=== PATIENT | male | born 1950 | race African-American/Black ===

== ENCOUNTER 2016-10-11 23:40 | Emergency (ER) | payer MEDICARE, MEDICAID ==
[~2016-10-11] VITALS: Ht 175.3 cm; Wt 104.3 kg
[~2016-10-11 23:40] MED LIST: ASPIRIN81 MG ORAL; Aspirin; CIPROFLOXACIN500 M2 ORAL; CLONIDINE 0.2M0.2 MG PO; FUROSEMIDE20 M1 ORAL; POTASSIUM99 M3 PO; ROBAXIN-750750 MG PO
[2016-10-11 23:56] VITALS: BP 122/87
[2016-10-12] MEDS ORDERED: MEDROL4 MG ORAL (00:07)
[2016-10-12] MEDS ORDERED: INDOCIN75 MG ORAL (00:07)
--- NOTE | 2016-10-12 00:07 | Emergency Room Report ---
History of Present Illness General Chief Complaint: Pain Source: Patient Present Illness HPI Is a 66-year-old male with multiple medical problem. He also has a history of gout. He presents with chief complaint of right great toe pain and also bilateral knee pain. He was in [place] 2 days ago and a lots of steak at a buffet. Since then his been having gouty attack. Denies any fever or chills. Pain is 9/10. Worse with movement. Worse with palpation. Similar symptom in the past. Allergies: Coded Allergies: No Known Allergies (Unverified , 09/28/13) Patient History Past Medical History: see triage record, old chart reviewed Past Surgical History: other Pertinent Family History: none Social History: Denies: smoking Immunizations: other Reviewed Nursing Documentation: PMH: Agreed, PSxH: Agreed Nursing Documentation-PMH Hx Hypertension: Yes Review of Systems Eye: Denies: blurred vision, eye pain ENT: Denies: ear pain, nose congestion, throat swelling Respiratory: Denies: cough, shortness of breath Cardiovascular: Denies: chest pain, palpitations Gastrointestinal: Denies: abdominal pain, diarrhea, nausea, vomiting Musculoskeletal: Reports: joint pain, joint swelling, Denies: back pain Skin: Denies: rash Neurological: Denies: headache, numbness Endocrine: Denies: increased thirst, increased urine Hematologic/Lymphatic: Denies: easy bruising All Other Systems: negative except mentioned in HPI Physical Exam Vital Signs Date Time Temp Pulse Resp B/P Pulse Ox O2 Delivery O2 Flow Rate FiO2 10/11/16 23:46 97.3 91 16 122/87 98 Room Air vitals normal Sp02 EP Interpretation: reviewed, normal General Appearance: well appearing, no apparent distress, alert Head: normocephalic, atraumatic Eyes: bilateral eye EOMI, bilateral eye PERRL ENT: hearing grossly normal, normal pharynx Neck: full range of motion, supple, no meningismus Respiratory: chest non-tender, lungs clear, normal breath sounds Cardiovascular #1: regular rate, rhythm, no murmur Gastrointestinal: normal bowel sounds, non tender, no mass, no organomegaly, no bruit, non-distended Musculoskeletal: back normal, gait/station normal, normal range of motion, other - Tenderness to bilateral knee and first right MTP joint Neurologic: alert, oriented x3 Psychiatric: mood/affect normal Skin: warm/dry Medical Decision Making Diagnostic Impression: Primary Impression: Gouty arthritis of toe Additional Impression: Gout of both knees ER Course Patient with gouty attacks. No evidence of septic joint. We'll discharge home. Last Vital Signs Date Time Temp Pulse Resp B/P Pulse Ox O2 Delivery O2 Flow Rate FiO2 10/11/16 23:56 97.3 16 122/87 98 Room Air 10/11/16 23:46 91 Status: improved Disposition: HOME, SELF-CARE Condition: Stable Scripts Methylprednisolone* (MEDROL*) 4 Mg Tablet 4 MG ORAL DAILY, #10 TAB 0 Refills Prov: BARBARA JACOBO M.D. 10/12/16 Indomethacin (Indocin) 75 Mg Capsule.er 75 MG ORAL TID, #30 CAP Prov: BARBARA JACOBO M.D. 10/12/16 Additional Instructions: followup with your DrTarsha in 7 days. Return if worse. BARBARA JACOBO M.D. Oct 12, 2016 00:07
[2016-10-12 00:15] VITALS: BP 122/87
[2016-10-12] MEDS ORDERED: Morphine Sulfate 4mg/ml Inj IM ONE (00:15)
== END 2016-10-12 00:15 | disposition home or self-care (01) ==
LOC: EMR 23:59
DX: M10.071 Idiopathic gout, right ankle and foot (principal); M10.062 Idiopathic gout, left knee; M10.061 Idiopathic gout, right knee; I10 Essential (primary) hypertension
CPT/HCPCS: 96372; 99284; J2270; 99283

== ENCOUNTER 2016-10-18 18:54 | Emergency (ER) | payer MEDICARE, MEDICAID ==
[~2016-10-18] VITALS: Ht 175.3 cm; Wt 106.6 kg
[~2016-10-18 18:54] MED LIST changes: +INDOCIN75 MG ORAL; +MEDROL4 MG ORAL
[2016-10-18 19:17] VITALS: BP 138/93
--- NOTE | 2016-10-18 19:27 | Emergency Room Report ---
History of Present Illness General Chief Complaint: Pain Source: Patient, Medical Record Present Illness HPI Patient presents with complaints of right knee pain Ongoing for the past several days he reports that he had prime rib earlier this weekend And has had increased pain to the right knee and right foot upon bearing weight Denies any fevers or chills denies any chest pain or shortness of breath Denies any focal weakness Denies any neck pain or photophobia patient reports previous history of gout and feels fairly similar to that Review of records reveals patient was here about 7 days ago with complaint of red meat in [place] On review of cures, it also appears patient had gone to [facility] ER in the beginning of October and prescribed, tyl with codeine Allergies: Coded Allergies: No Known Allergies (Unverified , 09/28/13) Patient History Past Medical History: see triage record Pertinent Family History: none Reviewed Nursing Documentation: PMH: Agreed, PSxH: Agreed Nursing Documentation-PMH Past Medical History: No History, Except For Hx Hypertension: Yes Review of Systems All Other Systems: negative except mentioned in HPI Physical Exam Vital Signs Date Time Temp Pulse Resp B/P Pulse Ox O2 Delivery O2 Flow Rate FiO2 10/18/16 18:57 97.9 71 14 138/93 98 Sp02 EP Interpretation: reviewed, normal General Appearance: well appearing, no apparent distress Head: normocephalic, atraumatic Eyes: bilateral eye EOMI, bilateral eye PERRL ENT: hearing grossly normal, normal pharynx, TMs + canals normal, uvula midline Neck: full range of motion, supple, no meningismus, no bony tend Respiratory: lungs clear, normal breath sounds, no rhonchi, no respiratory distress, no retraction, no accessory muscle use Cardiovascular #1: normal peripheral pulses, regular rate, rhythm, no gallop, no JVD, no murmur Gastrointestinal: normal bowel sounds, non tender, soft, no mass, no organomegaly, non-distended, no guarding, no hernia, no pulsatile mass, no rebound Genitourinary: no CVA tenderness Musculoskeletal: other - No obvious joint effusion in the right knee, however of both lower extremities reveal two out of four pitting edema Neurologic: oriented x3, 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, 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, motor strength/ tone normal, sensory intact Psychiatric: mood/affect normal Skin: warm/dry Lymphatic: other - As above with edema Medical Decision Making Diagnostic Impression: Primary Impression: Peripheral edema Additional Impressions: Knee pain Gout attack ER Course Given the patient's history examined the presentation multiple differentials were considered Including but not limited to septic joint, occult fracture, arthralgia Patient does not appear septic or toxic The joint in question is not warm, but a very small effusion clinically however somewhat insignificant Patient is neurologically and neurovascularly intact He has had previous gout and it does feel similar Patient reports that he did not take the medications that he was prescribed previously I feel that this is crucial to his outpatient intervention And patient will return with any changes in symptoms Last Vital Signs Date Time Temp Pulse Resp B/P Pulse Ox O2 Delivery O2 Flow Rate FiO2 10/18/16 19:17 97.9 83 14 138/93 98 Status: improved Disposition: HOME, SELF-CARE Condition: Improved Scripts Hydrocodone Bit/Acetaminophen 5-325* ([place] 5-325*) 1 Each Tablet 1 TAB ORAL Q6H Y for For Pain, #10 TAB 0 Refills Prov: JAIRON THAO D.O. 10/18/16 Additional Instructions: Patient is provided with the discharge instructions notified to follow up with primary doctor in the next 2-3 days otherwise return to the er with any worsening symptoms. Please note that this report is being documented using [employer] technology. This can lead to erroneous entry secondary to incorrect interpretation by the dictating instrument. JAIRON THAO D.O. Oct 18, 2016 19:27
[2016-10-18] MEDS ORDERED: Morphine Sulfate 4mg/ml Inj IM ONE (19:30)
[2016-10-18] MEDS ORDERED: NORCO 5-325 TA1 EACH ORAL (20:12)
[2016-10-18 20:19] VITALS: BP 129/83
[2016-10-18 20:20] VITALS: BP 138/93
== END 2016-10-18 20:21 | disposition home or self-care (01) ==
LOC: EMR 19:10
DX: M10.9 Gout, unspecified (principal); R60.0 Localized edema; I10 Essential (primary) hypertension
CPT/HCPCS: 96372; 99283; J2270

== ENCOUNTER 2016-11-14 08:29 | Inpatient (IN) | payer MEDICARE, MEDICAID ==
[~2016-11-14] VITALS: Ht 175.3 cm; Wt 97.5 kg
[~2016-11-14 08:29] MED LIST changes: +NORCO 5-325 TA1 EACH ORAL
[2016-11-14] MEDS ORDERED: Morphine Sulfate 4mg/ml Inj IVP ONE (08:45)
--- NOTE | 2016-11-14 09:12 | Emergency Room Report ---
History of Present Illness General Chief Complaint: Pain Source: Patient Present Illness HPI Patient presents with 2 problems. The first is that his gout has been acting out. He has pain in both ankles and also his right knee. He is significant amount of increased edema there. The second problem is that he felt his heart started defibrillate. He's had a history of atrial fibrillation but is not taking anticoagulation at the moment. He felt this began yesterday. He was seen by his doctors yesterday and they noticed of the need to do. Allergies: Coded Allergies: ACETAMINOPHEN (Verified Allergy, Unknown, 11/14/16) HYDROCODONE (Verified Allergy, Unknown, 11/14/16) Uncoded Allergies: VICODEN (Allergy, Unknown, 11/14/16) Patient History Past Medical History: see triage record Social History Narrative at home Reviewed Nursing Documentation: PMH: Agreed, PSxH: Agreed Nursing Documentation-PMH Hx Hypertension: Yes Review of Systems All Other Systems: negative except mentioned in HPI Physical Exam Vital Signs Date Time Temp Pulse Resp B/P Pulse Ox O2 Delivery O2 Flow Rate FiO2 11/14/16 08:39 97.2 89 18 165/100 99 Room Air Sp02 EP Interpretation: reviewed, normal General Appearance: well appearing, no apparent distress, GCS 15 Head: normocephalic, atraumatic Eyes: bilateral eye PERRL, bilateral eye normal inspection ENT: moist mucus membranes Neck: supple Respiratory: lungs clear, normal breath sounds Cardiovascular #1: tachycardia, irregularly irregular, edema - 2+ pitting Cardiovascular #2: 2+ radial (R) Gastrointestinal: normal inspection, normal bowel sounds, non tender, no mass, non-distended Musculoskeletal: back normal, gait/station normal, normal range of motion Neurologic: alert, oriented x3, grossly normal Psychiatric: mood/affect normal Skin: normal inspection, warm/dry Medical Decision Making Diagnostic Impression: Primary Impression: Atrial fibrillation with RVR Additional Impressions: Gout attack Qualified Codes: M10.9 - Gout, unspecified Edema Qualified Codes: R60.9 - Edema, unspecified Renal insufficiency ER Course This presents with 2 main problems. One is worsened gout. We will evaluate this by taking uric acid and renal function. He'll be treated with morphine. The second problem is palpitations with history of atrial fibrillation. This was evaluated with EKG, chest x-ray and labs. We need to make sure there is no acute myocardial infarction. In addition to that his rate is rapid and we need to control this. Diltiazem will be given. EKG is rapid atrial fibrillation. Chest x-ray is unremarkable except for somewhat widened mediastinum. Labs are significant for elevated white count and renal insufficiency. Also uric acid is elevated. The patient's heart rate is better after treatment with diltiazem. His pain is improved. The patient is treated with colchicine and Lasix. The patient is admitted to telemetry under the care of Dr. Espinoza. Laboratory Tests Test 11/14/16 09:00 11/14/16 14:04 White Blood Count 16.3 K/UL (4.8-10.8) H Red Blood Count 4.22 M/UL (4.70-6.10) L Hemoglobin 13.2 G/DL (14.2-18.0) L Hematocrit 40.1 % (42.0-52.0) L Mean Corpuscular Volume 95 FL (80-99) Mean Corpuscular Hemoglobin 31.2 PG (27.0-31.0) H Mean Corpuscular Hemoglobin Concent 32.8 G/DL (32.0-36.0) Red Cell Distribution Width 13.9 % (11.6-14.8) Platelet Count 377 K/UL (150-450) Mean Platelet Volume 7.1 FL (6.5-10.1) Neutrophils (%) (Auto) 71.6 % (45.0-75.0) Lymphocytes (%) (Auto) 17.2 % (20.0-45.0) L Monocytes (%) (Auto) 9.8 % (1.0-10.0) Eosinophils (%) (Auto) 0.5 % (0.0-3.0) Basophils (%) (Auto) 0.9 % (0.0-2.0) Prothrombin Time 10.5 SEC (9.30-11.50) Prothrombin Time INR 1.0 (0.9-1.1) PTT 26 SEC (23-33) Urine Color Pale yellow Urine Appearance Clear Urine pH 6 (4.5-8.0) Urine Specific [place] 1.020 (1.005-1.035) Urine Protein 2+ (NEGATIVE) H Urine Glucose (UA) Negative (NEGATIVE) Urine Ketones Negative (NEGATIVE) Urine Occult Blood 2+ (NEGATIVE) H Urine Nitrite Negative (NEGATIVE) Urine Bilirubin Negative (NEGATIVE) Urine Urobilinogen 4 MG/DL (0.0-1.0) H Urine Leukocyte Esterase Negative (NEGATIVE) Urine RBC 5-10 /HPF (0 - 0) H Urine WBC 2-4 /HPF (0 - 0) Urine Squamous Epithelial Cells Occasional /LPF Urine Bacteria Occasional /HPF (NONE) Sodium Level 142 mEQ/L (135-145) 137 mEQ/L (135-145) Potassium Level 4.4 mEQ/L (3.4-4.9) 4.1 mEQ/L (3.4-4.9) Chloride Level 102 mEQ/L (98-107) 97 mEQ/L (98-107) L Carbon Dioxide Level 24 mEQ/L (20-30) 23 mEQ/L (20-30) Anion Gap 16 (5-15) H 17 (5-15) H Blood Urea Nitrogen 32 mg/dL (7-23) H 30 mg/dL (7-23) H Creatinine 1.5 mg/dL (0.7-1.2) H 1.4 mg/dL (0.7-1.2) H Estimate Glomerular Filtration Rate 56.7 mL/min (>60) > 60 mL/min (>60) Glucose Level 90 mg/dL (74-106) 110 mg/dL (74-106) H Plasma/Serum Osmolality Pending Uric Acid 8.7 mg/dL (3.0-7.5) H 8.9 mg/dL (3.0-7.5) H Calcium Level 11.0 mg/dL (8.6-10.2) H 10.7 mg/dL (8.6-10.2) H Total Bilirubin 0.8 mg/dL (0.0-1.2) 0.7 mg/dL (0.0-1.2) Aspartate Amino Transferase (AST) 77 U/L (5-40) H 61 U/L (5-40) H Alanine Aminotransferase (ALT) 86 U/L (3-41) H 79 U/L (3-41) H Alkaline Phosphatase 108 U/L (40-129) 99 U/L (40-129) Total Creatine Kinase 48 U/L (38-174) 38 U/L (38-174) Troponin I < 0.30 ng/mL (<=0.30) < 0.30 ng/mL (<=0.30) Pro-B-Type Natriuretic Peptide 1740 pg/mL (0-125) H Total Protein 6.8 g/dL (6.6-8.7) 6.5 g/dL (6.6-8.7) L Albumin 4.1 g/dL (3.5-5.2) 4.0 g/dL (3.5-5.2) Globulin 2.7 g/dL 2.5 g/dL Albumin/Globulin Ratio 1.5 (1.0-2.7) 1.6 (1.0-2.7) Free Triiodothyronine Pending Cortisol Pending Urine Opiates Screen Positive (NEGATIVE) H Urine Barbiturates Screen Negative (NEGATIVE) Phencyclidine (PCP) Screen Negative (NEGATIVE) Urine Amphetamines Screen Negative (NEGATIVE) Urine Benzodiazepines Screen Negative (NEGATIVE) Urine Cocaine Screen Negative (NEGATIVE) Urine Marijuana (THC) Screen Negative (NEGATIVE) Phosphorus Level 2.9 mg/dL (2.5-4.8) Magnesium Level 2.2 mg/dL (1.7-2.5) Thyroid Stimulating Hormone (TSH) 0.343 uIU/mL (0.300-4.500) Free Thyroxine 1.46 ng/dL (0.86-1.85) EKG Diagnostic Results Rate: tachycardiac Rhythm: other - a fib Rhythm Strip Diag. Results Rhythm: no PVC's, no ectopy, other - a fib rate 128 Chest X-Ray Diagnostic Results EP Interpretation: Yes Findings: no consolidation, no effusion, no pneumothorax, no acute cardiopulmonary disease, other - wide mediastinum Number of Views: 1 Last Vital Signs Date Time Temp Pulse Resp B/P Pulse Ox O2 Delivery O2 Flow Rate FiO2 11/14/16 19:40 82 18 Room Air 11/14/16 17:58 153/104 11/14/16 11:35 97.9 96 Status: improved Disposition: ADMITTED INPATIENT Condition: Serious Referrals: NON PHYSICIAN (PCP) Tim Gil M.D. November 14, 2016 09:12
[2016-11-14] MEDS ORDERED: Diltiazem 25mg/5ml IV ONE (09:15)
[2016-11-14 09:20] VITALS: BP 133/89
[2016-11-14 09:26] LABS: BASOPHILS % (AUTO) 0.9 % (0.0-2.0); EOSINOPHILS % (AUTO) 0.5 % (0.0-3.0); LYMPHOCYTES % (AUTO) 17.2 % (20.0-45.0); MEAN CORPUSCULAR HEMOGLOBIN 31.2 PG (27.0-31.0); MEAN CORPUSCULAR HGB CONC 32.8 G/DL (32.0-36.0); MEAN CORPUSCULAR VOLUME 95 FL (80-99); MEAN PLATELET VOLUME 7.1 FL (6.5-10.1); MONOCYTES % (AUTO) 9.8 % (1.0-10.0); NEUTROPHILS % (AUTO) 71.6 % (45.0-75.0); PLATELET COUNT 377 K/UL (150-450); RED BLOOD COUNT 4.22 M/UL (4.70-6.10); RED CELL DISTRIBUTION WIDTH 13.9 % (11.6-14.8); WHITE BLOOD COUNT 16.3 K/UL (4.8-10.8)
[2016-11-14 09:32] LABS: APPEARANCE,URINE CLEAR; KETONES,URINE NEGATIVE (NEGATIVE); LEUKOCYTE ESTERASE ,URINE NEGATIVE (NEGATIVE); NITRITE,URINE NEGATIVE (NEGATIVE); PH,URINE 6 (4.5-8.0); PROTEIN,URINE 2+ (NEGATIVE); UROBILINOGEN,URINE 4 MG/DL (0.0-1.0)
[2016-11-14 09:45] LABS: BACTERIA,URINE OCCASIONAL /HPF; SQUAMOUS EPITHELIAL CELL,UR OCCASIONAL /LPF (NONE/OCC)
[2016-11-14 09:48] LABS: TROPONIN I < 0.30 ng/mL (<=0.30)
[2016-11-14 09:50] LABS: PROTHROMBIN TIME 10.5 SEC (9.30-11.50)
[2016-11-14 09:57] LABS: ALANINE AMINOTRANSFERASE 86 U/L (3-41); ALBUMIN/GLOBULIN RATIO 1.5 (1.0-2.7); ANION GAP 16 (5-15); ASPARTATE AMINO TRANSFERASE 77 U/L (5-40); CARBON DIOXIDE 24 mEQ/L (20-30); CHLORIDE 102 mEQ/L (98-107); CREATININE 1.5 mg/dL (0.7-1.2); GLOMERULAR FILTRATION RATE 56.7 mL/min (>60); HEMOLYSIS 10; POTASSIUM 4.4 mEQ/L (3.4-4.9); SODIUM 142 mEQ/L (135-145); TOTAL PROTEIN 6.8 g/dL (6.6-8.7); URIC ACID 8.7 mg/dL (3.0-7.5)
[2016-11-14 11:35] VITALS: BP 122/92
[2016-11-14] MEDS ORDERED: Heparin 25,000u/D5W 500ml 500 ML IV SCH ×2 (13:00→13:15)
[2016-11-14] MEDS ORDERED: DuoNeb 0.5-3(2.5)mg/3ml neb HHN PRN (13:00)
[2016-11-14] MEDS ORDERED: Metoprolol 5mg/5ml Inj IVP PRN ×2 (13:00)
[2016-11-14] MEDS ORDERED: Miralax 17gm pkt ORAL PRN (13:00)
[2016-11-14] MEDS ORDERED: Heparin 5000 units/ml inj IV ONE (13:15)
--- NOTE | 2016-11-14 14:04 | History and Physical ---
History of Present Illness General Date patient seen: November 14, 2016 Reason for Hospitalization: Pain Present Illness HPI 66 year old male with hx of afib for 44 years, gout, CHF, presented to [facility] c/ o swelling of both legs and gouty attach. He was found to be in rapid atrial fibrillation and was admitted to Telemetry. He is refusing any anticoagulant, claiming that he gets hematuria with anticoagulants. Allergies: Coded Allergies: ACETAMINOPHEN (Verified Allergy, Unknown, 11/14/16) HYDROCODONE (Verified Allergy, Unknown, 11/14/16) Uncoded Allergies: VICODEN (Allergy, Unknown, 11/14/16) Medication History Scheduled Ciprofloxacin Hcl* (Ciprofloxacin Hcl*), 500 MG ORAL Q12H Clonidine HCl (Clonidine HCl), 0.2 MG PO BID, (Reported) Furosemide* (Lasix*), 20 MG ORAL BID, (Reported) Indomethacin (Indocin), 75 MG ORAL TID Methocarbamol* (Robaxin-750*), 750 MG PO TID Methylprednisolone* (Medrol*), 4 MG ORAL DAILY Potassium Gluconate (Potassium), 20 MG PO DAILY, (Reported) Scheduled PRN Hydrocodone Bit/Acetaminophen 5-325* ([place] 5-325*), 1 TAB ORAL Q6H PRN for For Pain Miscellaneous Medications [Aspirin ], (Reported) Patient History Healthcare decision maker Resuscitation status Advanced Directive on File Past Medical/Surgical History Past Medical/Surgical History: (1) Atrial fibrillation (2) CHF (congestive heart failure) (3) Gout (4) Kidney calculus Review of Systems Musculoskeletal: Reports: joint pain, other - swlling Physical Exam General Appearance: WD/WN Lines, tubes and drains: peripheral HEENT: normocephalic, atraumatic Neck: non-tender, normal alignment Respiratory/Chest: chest wall non-tender, lungs clear Breasts: no masses Cardiovascular/Chest: normal peripheral pulses Abdomen: normal bowel sounds, non tender Genitourinary/Rectal: normal genital exam Extremities: normal range of motion Last 24 Hour Vital Signs Date Time Temp Pulse Resp B/P Pulse Ox O2 Delivery O2 Flow Rate FiO2 11/14/16 13:41 152 122/92 11/14/16 11:35 97.9 82 18 122/92 96 Room Air 11/14/16 11:24 81 19 130/79 100 Room Air 11/14/16 09:20 86 18 133/89 100 Room Air 11/14/16 09:12 149 151/120 11/14/16 09:04 140 16 Room Air 11/14/16 09:02 98.0 140 16 100 Room Air 11/14/16 08:39 97.2 89 18 165/100 99 Room Air Laboratory Tests Test 11/14/16 09:00 White Blood Count 16.3 K/UL (4.8-10.8) H Red Blood Count 4.22 M/UL (4.70-6.10) L Hemoglobin 13.2 G/DL (14.2-18.0) L Hematocrit 40.1 % (42.0-52.0) L Mean Corpuscular Volume 95 FL (80-99) Mean Corpuscular Hemoglobin 31.2 PG (27.0-31.0) H Mean Corpuscular Hemoglobin Concent 32.8 G/DL (32.0-36.0) Red Cell Distribution Width 13.9 % (11.6-14.8) Platelet Count 377 K/UL (150-450) Mean Platelet Volume 7.1 FL (6.5-10.1) Neutrophils (%) (Auto) 71.6 % (45.0-75.0) Lymphocytes (%) (Auto) 17.2 % (20.0-45.0) L Monocytes (%) (Auto) 9.8 % (1.0-10.0) Eosinophils (%) (Auto) 0.5 % (0.0-3.0) Basophils (%) (Auto) 0.9 % (0.0-2.0) Prothrombin Time 10.5 SEC (9.30-11.50) Prothromb Time International Ratio 1.0 (0.9-1.1) Activated Partial Thromboplast Time 26 SEC (23-33) Urine Color Pale yellow Urine Appearance Clear Urine pH 6 (4.5-8.0) Urine Specific [place] 1.020 (1.005-1.035) Urine Protein 2+ (NEGATIVE) H Urine Glucose (UA) Negative (NEGATIVE) Urine Ketones Negative (NEGATIVE) Urine Occult Blood 2+ (NEGATIVE) H Urine Nitrite Negative (NEGATIVE) Urine Bilirubin Negative (NEGATIVE) Urine Urobilinogen 4 MG/DL (0.0-1.0) H Urine Leukocyte Esterase Negative (NEGATIVE) Urine RBC 5-10 /HPF (0 - 0) H Urine WBC 2-4 /HPF (0 - 0) Urine Squamous Epithelial Cells Occasional /LPF Urine Bacteria Occasional /HPF (NONE) Sodium Level 142 mEQ/L (135-145) Potassium Level 4.4 mEQ/L (3.4-4.9) Chloride Level 102 mEQ/L (98-107) Carbon Dioxide Level 24 mEQ/L (20-30) Anion Gap 16 (5-15) H Blood Urea Nitrogen 32 mg/dL (7-23) H Creatinine 1.5 mg/dL (0.7-1.2) H Estimat Glomerular Filtration Rate 56.7 mL/min (>60) Glucose Level 90 mg/dL (74-106) Uric Acid 8.7 mg/dL (3.0-7.5) H Calcium Level 11.0 mg/dL (8.6-10.2) H Total Bilirubin 0.8 mg/dL (0.0-1.2) Aspartate Amino Transf (AST/SGOT) 77 U/L (5-40) H Alanine Aminotransferase (ALT/SGPT) 86 U/L (3-41) H Alkaline Phosphatase 108 U/L (40-129) Total Creatine Kinase 48 U/L (38-174) Troponin I < 0.30 ng/mL (<=0.30) Pro-B-Type Natriuretic Peptide 1740 pg/mL (0-125) H Total Protein 6.8 g/dL (6.6-8.7) Albumin 4.1 g/dL (3.5-5.2) Globulin 2.7 g/dL Albumin/Globulin Ratio 1.5 (1.0-2.7) Urine Opiates Screen Positive (NEGATIVE) H Urine Barbiturates Screen Negative (NEGATIVE) Phencyclidine (PCP) Screen Negative (NEGATIVE) Urine Amphetamines Screen Negative (NEGATIVE) Urine Benzodiazepines Screen Negative (NEGATIVE) Urine Cocaine Screen Negative (NEGATIVE) Urine Marijuana (THC) Screen Negative (NEGATIVE) Height (Feet): 5 Height (Inches): 9.00 Weight (Pounds): 240 Medications Current Medications Medications (Trade) Dose Ordered Sig/Artie Route PRN Reason Start Time Stop Time Status Last Admin Dose Admin Albuterol/ Ipratropium (DuoNeb 0.5-3(2.5)mg/3ml) 3 ml EVERY 4 HOURS PRN HHN Shortness of Breath 11/14/16 13:00 11/19/16 12:59 Clonidine HCl (Catapres) 0.2 mg BID ORAL 11/14/16 18:00 12/14/16 17:59 Dextrose (Dextrose 50%) STAT PRN IV Hypoglycemia 11/14/16 13:00 12/14/16 12:59 Diltiazem HCl (Cardizem) 10 mg EVERY HOUR PRN IV heart rate more than 140, 11/14/16 14:00 12/14/16 13:59 UNV Furosemide (Lasix) 40 mg EVERY 8 HOURS IV 11/14/16 14:00 12/14/16 13:59 11/14/16 13:41 Methocarbamol (Robaxin) 750 mg TID ORAL 11/14/16 13:00 12/14/16 12:59 Metoprolol Tartrate (Lopressor) 5 mg EVERY HOUR PRN IVP HR>120 11/14/16 13:00 12/14/16 12:59 11/14/16 13:41 Morphine Sulfate (Morphine Sulfate) 4 mg Q4H PRN IVP For Pain 11/14/16 14:00 11/21/16 13:59 UNV Ondansetron HCl (Zofran) 4 mg Q6H PRN IVP Nausea & Vomiting 11/14/16 13:00 12/14/16 12:59 Polyethylene Glycol (Miralax) 17 gm DAILYPRN PRN ORAL Constipation 11/14/16 13:00 12/14/16 12:59 Temazepam (Restoril) 15 mg HSPRN PRN ORAL Insomnia 11/14/16 21:00 11/21/16 20:59 Assessment/Plan Problem List: (1) Atrial fibrillation with RVR ICD Codes: I48.91 - Unspecified atrial fibrillation SNOMED: 744008833122976 (2) Right-sided heart failure ICD Codes: I50.9 - Heart failure, unspecified SNOMED: 938010649 (3) Renal insufficiency ICD Codes: N28.9 - Disorder of kidney and ureter, unspecified SNOMED: 807069860 (4) Peripheral edema ICD Codes: R60.9 - Edema, unspecified SNOMED: 649615976 (5) Gout ICD Codes: M10.9 - Gout, unspecified SNOMED: 27197992 Assessment/Plan rate control analgesics echo Aspirin for afib dvt prophylaxis Renal and cardio evaluation MORENA ACHARYA November 14, 2016 14:04
[2016-11-14 14:35] LABS: TROPONIN I < 0.30 ng/mL (<=0.30)
[2016-11-14] MEDS ORDERED: Diltiazem 25mg/5ml IV PRN (15:00)
[2016-11-14 15:11] LABS: ALANINE AMINOTRANSFERASE 79 U/L (3-41); ALBUMIN/GLOBULIN RATIO 1.6 (1.0-2.7); ANION GAP 17 (5-15); ASPARTATE AMINO TRANSFERASE 61 U/L (5-40); CALCIUM 10.7 mg/dL (8.6-10.2); CARBON DIOXIDE 23 mEQ/L (20-30); CHLORIDE 97 mEQ/L (98-107); CREATININE 1.4 mg/dL (0.7-1.2); GLOMERULAR FILTRATION RATE > 60 mL/min (>60); HEMOLYSIS 11; MAGNESIUM 2.2 mg/dL (1.7-2.5); PHOSPHORUS 2.9 mg/dL (2.5-4.8); POTASSIUM 4.1 mEQ/L (3.4-4.9); SODIUM 137 mEQ/L (135-145); TOTAL PROTEIN 6.5 g/dL (6.6-8.7); URIC ACID 8.9 mg/dL (3.0-7.5)
[2016-11-14] MEDS: Methocarbamol 750mg tab ORAL SCH ×2 (15:20→17:59)
[2016-11-14 15:23] LABS: THYROID STIMULATING HORMONE 0.343 uIU/mL (0.300-4.500)
[2016-11-14] MEDS: Morphine Sulfate 4mg/ml Inj IVP PRN ×2 (15:42→20:32)
--- NOTE | 2016-11-14 16:06 | Cardiology Progress Note ---
Subjective Subjective [id number] Objective Last 24 Hour Vital Signs Date Time Temp Pulse Resp B/P Pulse Ox O2 Delivery O2 Flow Rate FiO2 11/14/16 13:41 152 122/92 11/14/16 11:35 97.9 82 18 122/92 96 Room Air 11/14/16 11:24 81 19 130/79 100 Room Air 11/14/16 09:20 86 18 133/89 100 Room Air 11/14/16 09:12 149 151/120 11/14/16 09:04 140 16 Room Air 11/14/16 09:02 98.0 140 16 100 Room Air 11/14/16 08:39 97.2 89 18 165/100 99 Room Air Laboratory Tests Test 11/14/16 09:00 11/14/16 14:04 White Blood Count 16.3 K/UL (4.8-10.8) H Red Blood Count 4.22 M/UL (4.70-6.10) L Hemoglobin 13.2 G/DL (14.2-18.0) L Hematocrit 40.1 % (42.0-52.0) L Mean Corpuscular Volume 95 FL (80-99) Mean Corpuscular Hemoglobin 31.2 PG (27.0-31.0) H Mean Corpuscular Hemoglobin Concent 32.8 G/DL (32.0-36.0) Red Cell Distribution Width 13.9 % (11.6-14.8) Platelet Count 377 K/UL (150-450) Mean Platelet Volume 7.1 FL (6.5-10.1) Neutrophils (%) (Auto) 71.6 % (45.0-75.0) Lymphocytes (%) (Auto) 17.2 % (20.0-45.0) L Monocytes (%) (Auto) 9.8 % (1.0-10.0) Eosinophils (%) (Auto) 0.5 % (0.0-3.0) Basophils (%) (Auto) 0.9 % (0.0-2.0) Prothrombin Time 10.5 SEC (9.30-11.50) Prothromb Time International Ratio 1.0 (0.9-1.1) Activated Partial Thromboplast Time 26 SEC (23-33) Urine Color Pale yellow Urine Appearance Clear Urine pH 6 (4.5-8.0) Urine Specific [place] 1.020 (1.005-1.035) Urine Protein 2+ (NEGATIVE) H Urine Glucose (UA) Negative (NEGATIVE) Urine Ketones Negative (NEGATIVE) Urine Occult Blood 2+ (NEGATIVE) H Urine Nitrite Negative (NEGATIVE) Urine Bilirubin Negative (NEGATIVE) Urine Urobilinogen 4 MG/DL (0.0-1.0) H Urine Leukocyte Esterase Negative (NEGATIVE) Urine RBC 5-10 /HPF (0 - 0) H Urine WBC 2-4 /HPF (0 - 0) Urine Squamous Epithelial Cells Occasional /LPF Urine Bacteria Occasional /HPF (NONE) Sodium Level 142 mEQ/L (135-145) 137 mEQ/L (135-145) Potassium Level 4.4 mEQ/L (3.4-4.9) 4.1 mEQ/L (3.4-4.9) Chloride Level 102 mEQ/L (98-107) 97 mEQ/L (98-107) L Carbon Dioxide Level 24 mEQ/L (20-30) 23 mEQ/L (20-30) Anion Gap 16 (5-15) H 17 (5-15) H Blood Urea Nitrogen 32 mg/dL (7-23) H 30 mg/dL (7-23) H Creatinine 1.5 mg/dL (0.7-1.2) H 1.4 mg/dL (0.7-1.2) H Estimat Glomerular Filtration Rate 56.7 mL/min (>60) > 60 mL/min (>60) Glucose Level 90 mg/dL (74-106) 110 mg/dL (74-106) H Plasma/Serum Osmolality Pending Uric Acid 8.7 mg/dL (3.0-7.5) H 8.9 mg/dL (3.0-7.5) H Calcium Level 11.0 mg/dL (8.6-10.2) H 10.7 mg/dL (8.6-10.2) H Total Bilirubin 0.8 mg/dL (0.0-1.2) 0.7 mg/dL (0.0-1.2) Aspartate Amino Transf (AST/SGOT) 77 U/L (5-40) H 61 U/L (5-40) H Alanine Aminotransferase (ALT/SGPT) 86 U/L (3-41) H 79 U/L (3-41) H Alkaline Phosphatase 108 U/L (40-129) 99 U/L (40-129) Total Creatine Kinase 48 U/L (38-174) 38 U/L (38-174) Troponin I < 0.30 ng/mL (<=0.30) < 0.30 ng/mL (<=0.30) Pro-B-Type Natriuretic Peptide 1740 pg/mL (0-125) H Total Protein 6.8 g/dL (6.6-8.7) 6.5 g/dL (6.6-8.7) L Albumin 4.1 g/dL (3.5-5.2) 4.0 g/dL (3.5-5.2) Globulin 2.7 g/dL 2.5 g/dL Albumin/Globulin Ratio 1.5 (1.0-2.7) 1.6 (1.0-2.7) Free Triiodothyronine Pending Cortisol Pending Urine Opiates Screen Positive (NEGATIVE) H Urine Barbiturates Screen Negative (NEGATIVE) Phencyclidine (PCP) Screen Negative (NEGATIVE) Urine Amphetamines Screen Negative (NEGATIVE) Urine Benzodiazepines Screen Negative (NEGATIVE) Urine Cocaine Screen Negative (NEGATIVE) Urine Marijuana (THC) Screen Negative (NEGATIVE) Phosphorus Level 2.9 mg/dL (2.5-4.8) Magnesium Level 2.2 mg/dL (1.7-2.5) Thyroid Stimulating Hormone (TSH) 0.343 uIU/mL (0.300-4.500) Free Thyroxine 1.46 ng/dL (0.86-1.85) SHARMILA GODDARD November 14, 2016 16:06
[2016-11-14] MEDS ORDERED: cloNIDine 0.2mg Tab ORAL SCH (18:00)
[2016-11-14 20:00] VITALS: BP 134/88
[2016-11-14] MEDS ORDERED: Heparin 5000 units/ml inj SUBQ SCH (21:00)
[2016-11-14 21:16] LABS: APPEARANCE,URINE CLEAR; KETONES,URINE NEGATIVE (NEGATIVE); LEUKOCYTE ESTERASE ,URINE NEGATIVE (NEGATIVE); NITRITE,URINE NEGATIVE (NEGATIVE); PH,URINE 7 (4.5-8.0); PROTEIN,URINE NEGATIVE (NEGATIVE); UROBILINOGEN,URINE 4 MG/DL (0.0-1.0)
[2016-11-14 21:25] LABS: WBC,URINE 0-2 /HPF (0 - 0)
--- NOTE | 2016-11-14 23:19 | Consultation ---
DATE OF CONSULTATION: 11/14/2016 CARDIOLOGY CONSULTATION IDENTIFICATION DATA: This is a 66-year-old, black male. REASON FOR ADMISSION: Atrial fibrillation. HISTORY OF PRESENT ILLNESS: The patient had atrial fibrillation on and off for many years. However, yesterday his heart rate was fast and he was sent back to the doctor to emergency department. He denies any orthopnea, PND, or chest pain. He feels quite comfortable. Although, he felt recently lower extremity edema was getting worse. PAST MEDICAL HISTORY: Significant for gout and he also was diagnosed of kidney stones. He used to be on anticoagulation, but they stopped it because of hematuria. PAST SURGICAL HISTORY: Negative. MEDICATIONS: At home include all were reviewed and reconciled. HABITS: No history of drinking, smoking, or drug abuse. SOCIAL HISTORY: He lives at home independent. REVIEW OF SYSTEMS: His review of systems was done in details and now positive were found. PHYSICAL EXAMINATION: VITAL SIGNS: His blood pressure appears to be comfortable. Blood pressure 130/90, heart rate is 80, and oxygen saturation is 100% on room air. HEENT: PERRLA. EOMI. NECK: His neck veins are distended up to 12 cm. His carotid upstroke is brisk. LUNGS: He has scattered crackles bilaterally on that bases. HEART: Irregular with accented A2. ABDOMEN: Soft and distended. No mass is palpable. EXTREMITIES: Lower extremity 2+ edema bilaterally. NEUROLOGIC: He is intact. LABORATORY AND DIAGNOSTIC STUDIES: He had imaging studies, which showed that he has left kidney stone and there was no chest x-ray done at present time. His EKG showed heart rate of 128 beats per minute. There is morbid evidence of left ventricular enlargement. He has no ST or T changes. His other labs were reviewed with sodium 142, potassium 4.4, creatinine 1.5 and BUN 32. His white count 16.3 and hemoglobin 13.2. He also had hematuria. IMPRESSION AND RECOMMENDATION: Atrial fibrillation with rapid ventricular rate chronic, congestive heart failure chronic stable, history of hematuria, kidney stone and gout. Heart rate control as further anticoagulation was started, however, I am concerned that the patient is going to have hematuria again. He probably will need urology consult and I adjusted some of his medications. Thank you for your consultation. Asmita Cedeno M.D. DR: SUN JOB#: [id number] CC:
[2016-11-15] VITALS: BP 124/85
[2016-11-15] MEDS: Morphine Sulfate 4mg/ml Inj IVP PRN ×5 (00:44→21:57)
[2016-11-15 04:00] VITALS: BP 134/84
[2016-11-15 08:00] VITALS: BP 136/91
[2016-11-15 08:08] LABS: FREE TRIIODOTHYRONINE 3.1 pg/mL (2.0-4.4)
[2016-11-15] MEDS: Methocarbamol 750mg tab ORAL SCH ×3 (08:38→13:00)
[2016-11-15 10:12] LABS: BASOPHILS % (AUTO) 1.8 % (0.0-2.0); EOSINOPHILS % (AUTO) 1.1 % (0.0-3.0); LYMPHOCYTES % (AUTO) 11.9 % (20.0-45.0); MEAN CORPUSCULAR HEMOGLOBIN 30.2 PG (27.0-31.0); MEAN CORPUSCULAR VOLUME 95 FL (80-99); MEAN PLATELET VOLUME 7.5 FL (6.5-10.1); MONOCYTES % (AUTO) 7.1 % (1.0-10.0); NEUTROPHILS % (AUTO) 78.1 % (45.0-75.0); PLATELET COUNT 264 K/UL (150-450); RED BLOOD COUNT 4.23 M/UL (4.70-6.10); RED CELL DISTRIBUTION WIDTH 13.8 % (11.6-14.8); WHITE BLOOD COUNT 14.4 K/UL (4.8-10.8)
[2016-11-15 10:33] LABS: ANION GAP 16 (5-15); CALCIUM 9.7 mg/dL (8.6-10.2); CARBON DIOXIDE 21 mEQ/L (20-30); CHLORIDE 102 mEQ/L (98-107); CREATININE 1.2 mg/dL (0.7-1.2); GLOMERULAR FILTRATION RATE > 60 mL/min (>60); HEMOLYSIS 17; PHOSPHORUS 2.1 mg/dL (2.5-4.8); POTASSIUM 3.8 mEQ/L (3.4-4.9); SODIUM 139 mEQ/L (135-145)
[2016-11-15 10:50] LABS: TROPONIN I < 0.30 ng/mL (<=0.30)
[2016-11-15 12:00] VITALS: BP 146/87
--- NOTE | 2016-11-15 15:23 | Pulmonology Progress Note ---
Assessment/Plan Problems: (1) Atrial fibrillation with RVR (2) Right-sided heart failure (3) Renal insufficiency (4) Peripheral edema (5) Gout Assessment/Plan heart rate controlled diuresing well d/w Dr Mendez Cardio note reviewed Urology consulted, Subjective ROS Limited/Unobtainable: No Constitutional: Reports: no symptoms HEENT: Repors: no symptoms Respiratory: Reports: no symptoms Allergies: Coded Allergies: ACETAMINOPHEN (Verified Allergy, Unknown, 11/14/16) HYDROCODONE (Verified Allergy, Unknown, 11/14/16) Uncoded Allergies: VICODEN (Allergy, Unknown, 11/14/16) Objective Last 24 Hour Vital Signs Date Time Temp Pulse Resp B/P Pulse Ox O2 Delivery O2 Flow Rate FiO2 11/15/16 12:00 97.9 96 18 146/87 99 Room Air 11/15/16 08:38 67 136/91 11/15/16 08:00 114 11/15/16 08:00 96.7 67 19 136/91 95 Room Air 11/15/16 07:54 155 136/97 11/15/16 07:20 79 18 Room Air 11/15/16 04:00 75 11/15/16 04:00 97.9 77 20 134/84 100 Room Air 11/15/16 00:00 74 11/15/16 00:00 97.5 86 20 124/85 100 Room Air 11/14/16 20:00 97.7 76 20 134/88 99 Room Air 11/14/16 20:00 86 11/14/16 19:40 82 18 Room Air 11/14/16 17:58 88 153/104 11/14/16 16:00 94 Intake and Output 11/14/16 11/15/16 19:00 07:00 Intake Total 540 ml 240 ml Output Total 600 ml Balance -60 ml 240 ml Intake Oral 540 ml 240 ml Output Urine Total 600 ml # Voids 1 General Appearance: WD/WN HEENT: normocephalic Respiratory/Chest: chest wall non-tender, lungs clear Cardiovascular: normal peripheral pulses, normal rate Abdomen: normal bowel sounds, soft, non tender Genitourinary: normal external genitalia Extremities: no cyanosis Skin: no rash Laboratory Tests 11/14/16 21:00: Urine Color Pale yellow, Urine Appearance Clear, Urine pH 7, Urine Specific [place] 1.015, Urine Protein Negative, Urine Glucose (UA) Negative, Urine Ketones Negative, Urine Occult Blood 1+H, Urine Nitrite Negative, Urine Bilirubin Negative, Urine Urobilinogen 4H, Urine Leukocyte Esterase Negative, Urine RBC 2-4H, Urine WBC 0-2, Urine Squamous Epithelial Cells None, Urine Bacteria None, Urine Eosinophils 0 %, Urine Osmolality [Pending], Urine Random Sodium 104, Urine Random Chloride 88, Urine Potassium Timed 21 11/15/16 09:50: White Blood Count 14.4H, Red Blood Count 4.23L, Hemoglobin 12.8L, Hematocrit 40.0L, Mean Corpuscular Volume 95, Mean Corpuscular Hemoglobin 30.2, Mean Corpuscular Hemoglobin Concent 32.0, Red Cell Distribution Width 13.8, Platelet Count 264, Mean Platelet Volume 7.5, Neutrophils (%) (Auto) 78.1H, Lymphocytes ( %) (Auto) 11.9L, Monocytes (%) (Auto) 7.1, Eosinophils (%) (Auto) 1.1, Basophils (%) (Auto) 1.8, Sodium Level 139, Potassium Level 3.8, Chloride Level 102, Carbon Dioxide Level 21, Anion Gap 16H, Blood Urea Nitrogen 21, Creatinine 1.2, Estimat Glomerular Filtration Rate > 60, Glucose Level 128H, Calcium Level 9.7, Phosphorus Level 2.1L, Troponin I < 0.30, Albumin 3.1L Current Medications Medications (Trade) Dose Ordered Sig/Artie Route PRN Reason Start Time Stop Time Status Last Admin Dose Admin Allopurinol (Zyloprim) 100 mg DAILY ORAL 11/15/16 13:30 12/15/16 13:29 Dextrose (Dextrose 50%) STAT PRN IV Hypoglycemia 11/14/16 13:00 12/14/16 12:59 Diltiazem HCl (Cardizem) 10 mg EVERY HOUR PRN IV heart rate more than 140 11/14/16 15:00 12/14/16 14:59 11/15/16 07:54 Furosemide (Lasix) 40 mg DAILY IV 11/15/16 09:00 12/14/16 15:59 11/15/16 08:37 Methocarbamol (Robaxin) 750 mg TID ORAL 11/14/16 13:00 12/14/16 12:59 11/15/16 08:38 Metoprolol Succinate (Toprol XL) 50 mg DAILY ORAL 11/14/16 16:30 12/14/16 16:29 11/15/16 08:38 Morphine Sulfate (Morphine Sulfate) 4 mg Q4H PRN IVP For Pain 11/14/16 15:00 11/21/16 14:59 11/15/16 12:13 Naproxen (Naprosyn) 500 mg TWICE A DAY ORAL 11/15/16 18:00 12/15/16 17:59 Ondansetron HCl (Zofran) 4 mg Q6H PRN IVP Nausea & Vomiting 11/14/16 13:00 12/14/16 12:59 Polyethylene Glycol (Miralax) 17 gm DAILYPRN PRN ORAL Constipation 11/14/16 13:00 12/14/16 12:59 Temazepam (Restoril) 15 mg HSPRN PRN ORAL Insomnia 11/14/16 21:00 11/21/16 20:59 MORENA ACHARYA November 15, 2016 15:23
--- NOTE | 2016-11-15 15:45 | Cardiology Progress Note ---
Assessment/Plan Assessment/Plan increase metoprolol IV Heparin, but pt has history of hematuria, will follow ?urology consult Subjective Subjective feels better, no palpitations this morning his HR was 150 but he did not feel it Objective Last 24 Hour Vital Signs Date Time Temp Pulse Resp B/P Pulse Ox O2 Delivery O2 Flow Rate FiO2 11/15/16 12:00 97.9 96 18 146/87 99 Room Air 11/15/16 08:38 67 136/91 11/15/16 08:00 114 11/15/16 08:00 96.7 67 19 136/91 95 Room Air 11/15/16 07:54 155 136/97 11/15/16 07:20 79 18 Room Air 11/15/16 04:00 75 11/15/16 04:00 97.9 77 20 134/84 100 Room Air 11/15/16 00:00 74 11/15/16 00:00 97.5 86 20 124/85 100 Room Air 11/14/16 20:00 97.7 76 20 134/88 99 Room Air 11/14/16 20:00 86 11/14/16 19:40 82 18 Room Air 11/14/16 17:58 88 153/104 11/14/16 16:00 94 General Appearance: no apparent distress EENT: normal ENT inspection Neck: JVD - 10 cm Rhythm: Afib Cardiovascular: tachycardia, systolic murmur Respiratory/Chest: crackles/rales Abdomen: soft Extremities: moderate edema Intake and Output 11/14/16 11/15/16 19:00 07:00 Intake Total 540 ml 240 ml Output Total 600 ml Balance -60 ml 240 ml Intake Oral 540 ml 240 ml Output Urine Total 600 ml # Voids 1 Laboratory Tests Test 11/14/16 21:00 11/15/16 09:50 Urine Color Pale yellow Urine Appearance Clear Urine pH 7 (4.5-8.0) Urine Specific [place] 1.015 (1.005-1.035) Urine Protein Negative (NEGATIVE) Urine Glucose (UA) Negative (NEGATIVE) Urine Ketones Negative (NEGATIVE) Urine Occult Blood 1+ (NEGATIVE) H Urine Nitrite Negative (NEGATIVE) Urine Bilirubin Negative (NEGATIVE) Urine Urobilinogen 4 MG/DL (0.0-1.0) H Urine Leukocyte Esterase Negative (NEGATIVE) Urine RBC 2-4 /HPF (0 - 0) H Urine WBC 0-2 /HPF (0 - 0) Urine Squamous Epithelial Cells None /LPF (NONE/OCC) Urine Bacteria None /HPF (NONE) Urine Eosinophils 0 % Urine Osmolality Pending Urine Random Sodium 104 mmol/L Urine Random Chloride 88 mmol/L Urine Potassium Timed 21 mmol/L White Blood Count 14.4 K/UL (4.8-10.8) H Red Blood Count 4.23 M/UL (4.70-6.10) L Hemoglobin 12.8 G/DL (14.2-18.0) L Hematocrit 40.0 % (42.0-52.0) L Mean Corpuscular Volume 95 FL (80-99) Mean Corpuscular Hemoglobin 30.2 PG (27.0-31.0) Mean Corpuscular Hemoglobin Concent 32.0 G/DL (32.0-36.0) Red Cell Distribution Width 13.8 % (11.6-14.8) Platelet Count 264 K/UL (150-450) Mean Platelet Volume 7.5 FL (6.5-10.1) Neutrophils (%) (Auto) 78.1 % (45.0-75.0) H Lymphocytes (%) (Auto) 11.9 % (20.0-45.0) L Monocytes (%) (Auto) 7.1 % (1.0-10.0) Eosinophils (%) (Auto) 1.1 % (0.0-3.0) Basophils (%) (Auto) 1.8 % (0.0-2.0) Sodium Level 139 mEQ/L (135-145) Potassium Level 3.8 mEQ/L (3.4-4.9) Chloride Level 102 mEQ/L (98-107) Carbon Dioxide Level 21 mEQ/L (20-30) Anion Gap 16 (5-15) H Blood Urea Nitrogen 21 mg/dL (7-23) Creatinine 1.2 mg/dL (0.7-1.2) Estimat Glomerular Filtration Rate > 60 mL/min (>60) Glucose Level 128 mg/dL (74-106) H Calcium Level 9.7 mg/dL (8.6-10.2) Phosphorus Level 2.1 mg/dL (2.5-4.8) L Troponin I < 0.30 ng/mL (<=0.30) Albumin 3.1 g/dL (3.5-5.2) SHARMILA GIBBS November 15, 2016 15:45
[2016-11-15 16:00] VITALS: BP 138/72
[2016-11-15] MEDS: Allopurinol 100mg Tab ORAL SCH (16:19)
[2016-11-15] MEDS: Naproxen 500mg tab ORAL SCH (18:50)
[2016-11-15 20:00] VITALS: BP 115/64
[2016-11-16] VITALS: BP 113/64
[2016-11-16 04:00] VITALS: BP 112/69
[2016-11-16] MEDS: Morphine Sulfate 4mg/ml Inj IVP PRN ×2 (05:00→19:49)
[2016-11-16 07:24] LABS: TROPONIN I < 0.30 ng/mL (<=0.30)
[2016-11-16 07:36] LABS: URIC ACID 8.7 mg/dL (3.0-7.5)
[2016-11-16 08:00] VITALS: BP 126/85
--- NOTE | 2016-11-16 08:46 | Diagnostic Imaging Report ---
Indication: Abdominal pain Technique: Renal ultrasound Comparison: CT of the abdomen and pelvis 09/28/13 Findings: Right kidney measures 11.1 cm in length. Left kidney measures 11.7 cm in length. There is no hydronephrosis. Bilateral renal cysts are seen measuring up to 2.3 cm in the right kidney and 2.3 cm and the left kidney. Echogenic foci are demonstrated of the bilateral kidneys possibly representing nonobstructive calculi. There is an approximately 11.2 x 7.1 cm area of elliptical anechoic fluid abutting the left kidney. Visualized IVC is unremarkable. The bladder is grossly unremarkable. Impression: No hydronephrosis. Echogenic foci of the bilateral kidneys, nonspecific, could represent nonobstructive calculi. Correlation with CT recommended as indicated. Bilateral renal cysts. Large elliptical anechoic fluid abutting the left kidney which was not seen on the prior CT could represent fluid in the subcapsular location of the left kidney. Correlation with CT recommended.
--- NOTE | 2016-11-16 08:49 | History and Physical Report ---
DATE OF ADMISSION: 11/14/2016 NOTE: AUDIO NOT CLEAR. REASON FOR ADMISSION: This rheumatological consultation ordered by Dr. Espinoza on this 66-year-old patient because of recurrent gouty attack. HISTORY OF PRESENT ILLNESS: The patient was residing at home and has been in stable condition until one year prior to the present admission. At that time, he developed acute gouty attack in his left first toe. He was diagnosed by his primary care physician as acute gouty attack and received prednisone 10 mg t.i.d. and analgesic. He had another gouty attack in 2016 and another gouty attack in his right knee three weeks ago. The attack was so acute that he could not touch his skin and it was swollen. He did not complain to his physician until recently. He received morphine sulfate and prednisone again and referred to be admitted. PAST MEDICAL HISTORY: Four years ago, he underwent detachment of right eye retina. Medically, he is known to have high blood pressure for the last three years and congestive heart failure. He has gouty attack for the last one year. REVIEW OF PATIENT'S MEDICATIONS: Prior to admission revealed that the patient was on furosemide 40 mg p.o. and on admission 40 mg IV. The patient is also on metoprolol 50 mg daily and methocarbamol 750 mg daily. FAMILY HISTORY: His father at the age of 40 from complication of diabetes and his mother in her 40s from kidney infection. He has no brother and no sister. He has 12 children, six of them are his and six of them are adopted, none of them has hyperuricemia or gouty attack. HABITS: The patient did not smoke, drink, or use illicit drugs for at least 40 years. REVIEW OF SYSTEMS: Cardiovascular: The patient denied any chest pain, shortness of breath. He can walk less than half a block before developing shortness of breath. He has no palpitation and no dizziness. Pulmonary: The patient denied cough, wheezing, or expectoration. Gastrointestinal: His appetite is good. His weight is stable. He has no dysphagia, no dyspepsia, and no bowel movement disorder, however, he thinks that current gout attack was because he does not like . Genitourinary: The patient denied any dysuria and no frequency. He does have hesitancy and does have incomplete evacuation and nocturia at this time. Joint: At the present time, the only joint which is swollen in his right knee. He has no morning stiffness, cold extremities, photosensitivity, dry eyes, or alopecia. Central nervous system: until three weeks ago. He has no numbness, tingling, seizure disorder, and has no headache. PHYSICAL EXAMINATION: VITAL SIGNS: Blood pressure is 124/84, his pulse is 77, respirations were 20, and temperature 97.9 degrees. HEENT: Eyes were normal. Pupils were round, equal, and reactive to light. Sclera was white. Conjunctiva was pink. Extraocular movements were normal. Temporal arteries were palpable bilaterally. There was no bilateral temporal wasting. Visual garcia to confrontation were normal and neglect sign was negative. ENT, mucous membranes were not dehydrated. Auditory canals were clear and tympanic membranes could not be visualized. Nasal cavity was not congested. Nasal septum was intact. Soft palate was free of ulcerations. Pharynx was clear from exudate or tonsillar hypertrophy. Uvula juan to phonation. Tongue was moist, midline, and normally papillated. NECK: Supple. There was no goiter. No mass. No lymphadenopathy. There was no JVD. No bruits. Carotid upstroke was 2+. LUNGS: Clear. HEART: PMI was in the fifth left intercostal space in midclavicular line. There was normal S1 and normal S2. There was no murmur. No arrhythmia. No S3. No S4. No pericardial rub. ABDOMEN: Soft, obese, and nontender without organomegaly. There were normal bowel sounds without bruits. There was no guarding. No rebound tenderness. No ascites. No hernia. No CVA tenderness. Liver span was 8 cm, mostly nontender. EXTREMITIES: No cyanosis and no clubbing. There was 2+ edema in both feet and in both lower extremity up to 2/3 of the tibia. Joint examination, passive range of motion of shoulder and elbow. PIP and DIP are normal. There was no loss of hyperextension. There was no tophi passive range of motion of both knees. Abduction was 280 degrees and internal rotation 20. Passive range of motion of the left knee was normal without loss of hyperextension or crepitus. free of tenderness with normal passive range of motion. The right knee was mildly swollen and tender with minimal fluctuation and thickened synovium. LABORATORY DATA: Hemoglobin is 12.8, hematocrit 40.0 with MCV of 95, WBC of 14.4, and platelets are 264,000. His BUN and creatinine are 21 and 1.0 respectively. His sodium is 139, potassium 3.8, chloride 102, and CO2 21. His calcium was 9.7. His phosphorus is 2.1. Uric acid was 8.9. Glucose was 110 to 128. His calcium yesterday was 10.7 and 9.7. His BNP was not available and troponin was negative. IMPRESSION AND PLAN: Gout, probably drug induced. Furosemide should be avoided. The patient will be started on allopurinol 100 mg daily and uric acid should be followed and below 6. The patient has been on colchicine 0.6 mg b.i.d., however, at the present time, the patient is in mild pain. There is no skin hypersensitivity. X-ray of the right knee will be requested. Repeat laboratory tests will be done in the morning. The patient at the present time, mild, and probably would to improve based on management. He has chronic obstructive pulmonary disease. ARIELLE, rheumatic factor will be requested as well. Vilma Mendez M.D. DR: Omar JOB#: [id number] CC:
[2016-11-16] MEDS: Allopurinol 100mg Tab ORAL SCH (08:52)
[2016-11-16] MEDS: Naproxen 500mg tab ORAL SCH (08:55)
--- NOTE | 2016-11-16 11:07 | Diagnostic Imaging Report ---
Indication: Pain 3 views of the right knee were obtained. Findings: Bones are osteopenic. Some narrowing of the joint space noted especially in the patellofemoral compartment with subchondral cyst formation and osteophytes. No fracture is identified. Impression: Osteoarthritis
--- NOTE | 2016-11-16 11:19 | Cardiology Report ---
APPROVED REPORT EXAM: Two-dimensional and M-mode echocardiogram with Doppler and color Doppler. INDICATION Left ventricular function M-Mode DIMENSIONS IVSd0.8 (0.7-1.1cm)Left Atrium (MM)3.8 (1.6-4.0cm) LVDd4.8 (3.5-5.6cm)Aortic Root3.4 (2.0-3.7cm) PWd0.7 (0.7-1.1cm)Aortic Cusp Exc.2.1 (1.5-2.0cm) LVDs3.8 (2.5-4.0cm) PWs0.6 cm Technically difficult study due to poor acoustic windows. Normal left ventricular chamber size, systolic function and wall motion. Left ventricular ejection fraction estimated to be 55-60%. No evidence of left ventricular hypertrophy. No evidence of pericardial fat or effusion. Moderate bi-atrial enlargement by 2D. Focal aortic valve sclerosis with adequate cusp excursion Thickened mitral valve leaflets with normal excursion. Mitral annulus and aortic root calcification. Pulmonic valve is well visualized. Normal tricuspid valve structure. IVC is normal in size with physiologic collapse. A color flow and spectral Doppler study was performed and revealed: No aortic regurgitation. Moderate mitral regurgitation. Left ventricular diastolic dysfunction not obtainable due to A-FIB. Moderate tricuspid regurgitation. Tricuspid systolic velocities suggests peak right ventricular systolic pressure of 39 mmHg Consistent with mild pulmonary hypertension.
[2016-11-16 11:42] LABS: APPEARANCE,URINE CLEAR; KETONES,URINE NEGATIVE (NEGATIVE); LEUKOCYTE ESTERASE ,URINE NEGATIVE (NEGATIVE); NITRITE,URINE NEGATIVE (NEGATIVE); PH,URINE 6.5 (4.5-8.0); PROTEIN,URINE 1+ (NEGATIVE); UROBILINOGEN,URINE 4 MG/DL (0.0-1.0)
[2016-11-16 11:58] LABS: BACTERIA,URINE OCCASIONAL /HPF; SQUAMOUS EPITHELIAL CELL,UR OCCASIONAL /LPF (NONE/OCC); WBC,URINE 0-2 /HPF (0 - 0)
[2016-11-16 12:29] VITALS: BP 152/100
--- NOTE | 2016-11-16 14:47 | Diagnostic Imaging Report ---
Indication: Renal mass Technique: Continuous helical transaxial imaging of the abdomen and pelvis was obtained from the lung bases to the pubic symphysis during intravenous contrast administration. Coronal 2-D reformats were also obtained. Study obtained in a Siemens sensation [address] Total Dose length Product (DLP): [address] Dose Index Volume (CTDIvol): 21, 8, 162, 21, 21 mGy Comparison: Previous noncontrast CT 09/28 13, recent renal ultrasound 11/15/16 Findings: There is a heterogeneous slightly hyperdense, crescentic posterior, subcapsular, fluid collection measuring 8 x 4.6 x 11 CM in the left kidney. Findings consistent with a hematoma. There is associated displacement of the kidney anteriorly. The nature of the hematoma is unknown but appears to be confined to the capsule the kidney. There is no hydronephrosis. Both kidneys appear to enhance normally. There are several cysts present within both kidneys. There is a 8 mm stone in the lower pole calyx of the left kidney. Mild basilar reticular densities consistent with atelectasis noted. Gallbladder is grossly unremarkable in appearance. No abnormalities of the pancreas, adrenal glands identified. Desiccation and the liver noted. Spleen is unremarkable. There is moderate fecal retention in the rectum which is slightly distended. There is perirectal soft tissue stranding especially in the presacral region. Prostate calcification noted. The bladder is moderately distended. Arterial vascular calcifications are present within the aorta normal appendix noted. Prominent small nodes demonstrated at its L4 and L5. Impression: 8 x 5 x 11 cm posterior left subcapsular hematoma. The etiology is unknown. Nonobstructive stone in the left kidney Multiple bilateral renal cysts Atherosclerotic vascular disease Calcification in the liver nonspecific Moderate fecal retention in the rectum. Proctitis not excluded. The CT scanner at [facility] is accredited by the [employer] and the scans are performed using protocols designed to limit radiation exposure to as low as reasonably achievable to attain images of sufficient resolution adequate for diagnostic evaluation.
--- NOTE | 2016-11-16 15:04 | General Progress Note ---
Assessment/Plan Status: unchanged Status Narrative CT results showed left subcapsulare hematoma No evidence of renal mass Assessment/Plan Will need cystoscopy Subjective Allergies: Coded Allergies: ACETAMINOPHEN (Verified Allergy, Unknown, 11/14/16) HYDROCODONE (Verified Allergy, Unknown, 11/14/16) Uncoded Allergies: VICODEN (Allergy, Unknown, 11/14/16) Objective Last 24 Hour Vital Signs Date Time Temp Pulse Resp B/P Pulse Ox O2 Delivery O2 Flow Rate FiO2 11/16/16 12:29 98.1 62 16 152/100 100 11/16/16 11:56 89 11/16/16 10:15 97.7 11/16/16 09:50 81 16 Room Air 11/16/16 08:52 94 126/85 11/16/16 08:00 88 11/16/16 08:00 97.7 94 18 126/85 100 11/16/16 04:11 66 11/16/16 04:00 97.7 85 20 112/69 99 Room Air 11/16/16 01:42 86 11/16/16 00:00 98.2 65 18 113/64 98 Room Air 11/15/16 21:47 97 128/90 11/15/16 20:00 98.2 80 18 115/64 98 Room Air 11/15/16 20:00 110 11/15/16 19:11 80 18 Room Air 11/15/16 16:00 96.0 68 18 138/72 98 Room Air 11/15/16 16:00 88 Intake and Output 11/15/16 11/16/16 19:00 07:00 Intake Total 240 ml Balance 240 ml Intake Oral 240 ml # Bowel Movements 1 Laboratory Tests 11/16/16 06:30: Erythrocyte Sedimentation Rate 13, Uric Acid 8.7H, Troponin I < 0.30, C- Reactive Protein, Quantitative 1.0H, Rheumatoid Factor Screen [Pending], Anti- Nuclear Antibody Screen [Pending] 11/16/16 11:30: Urine Color Pale yellow, Urine Appearance Clear, Urine pH 6.5, Urine Specific [place] 1.010, Urine Protein 1+H, Urine Glucose (UA) Negative, Urine Ketones Negative, Urine Occult Blood 1+H, Urine Nitrite Negative, Urine Bilirubin Negative, Urine Urobilinogen 4H, Urine Leukocyte Esterase Negative, Urine RBC 2- 4H, Urine WBC 0-2, Urine Squamous Epithelial Cells Occasional, Urine Bacteria Occasional Height (Feet): 5 Height (Inches): 9.00 Weight (Pounds): 215 Dougie Glover MD November 16, 2016 15:04
--- NOTE | 2016-11-16 15:13 | Pulmonology Progress Note ---
Assessment/Plan Problems: (1) Atrial fibrillation with RVR (2) Right-sided heart failure (3) Renal insufficiency (4) Peripheral edema (5) Gout Assessment/Plan heart rate controlled diuresing well d/w Dr Mendez Cardio note reviewed Urology consult appreciated for cystoscopy Subjective ROS Limited/Unobtainable: No Constitutional: Reports: no symptoms HEENT: Repors: no symptoms Respiratory: Reports: no symptoms Allergies: Coded Allergies: ACETAMINOPHEN (Verified Allergy, Unknown, 11/14/16) HYDROCODONE (Verified Allergy, Unknown, 11/14/16) Uncoded Allergies: VICODEN (Allergy, Unknown, 11/14/16) Objective Last 24 Hour Vital Signs Date Time Temp Pulse Resp B/P Pulse Ox O2 Delivery O2 Flow Rate FiO2 11/16/16 12:29 98.1 62 16 152/100 100 11/16/16 11:56 89 11/16/16 10:15 97.7 11/16/16 09:50 81 16 Room Air 11/16/16 08:52 94 126/85 11/16/16 08:00 88 11/16/16 08:00 97.7 94 18 126/85 100 11/16/16 04:11 66 11/16/16 04:00 97.7 85 20 112/69 99 Room Air 11/16/16 01:42 86 11/16/16 00:00 98.2 65 18 113/64 98 Room Air 11/15/16 21:47 97 128/90 11/15/16 20:00 98.2 80 18 115/64 98 Room Air 11/15/16 20:00 110 11/15/16 19:11 80 18 Room Air 11/15/16 16:00 96.0 68 18 138/72 98 Room Air 11/15/16 16:00 88 Intake and Output 11/15/16 11/16/16 19:00 07:00 Intake Total 240 ml Balance 240 ml Intake Oral 240 ml # Bowel Movements 1 General Appearance: WD/WN HEENT: normocephalic Respiratory/Chest: chest wall non-tender Cardiovascular: normal peripheral pulses Abdomen: normal bowel sounds, soft, non tender Genitourinary: normal external genitalia Laboratory Tests 11/16/16 06:30: Erythrocyte Sedimentation Rate 13, Uric Acid 8.7H, Troponin I < 0.30, C- Reactive Protein, Quantitative 1.0H, Rheumatoid Factor Screen [Pending], Anti- Nuclear Antibody Screen [Pending] 11/16/16 11:30: Urine Color Pale yellow, Urine Appearance Clear, Urine pH 6.5, Urine Specific [place] 1.010, Urine Protein 1+H, Urine Glucose (UA) Negative, Urine Ketones Negative, Urine Occult Blood 1+H, Urine Nitrite Negative, Urine Bilirubin Negative, Urine Urobilinogen 4H, Urine Leukocyte Esterase Negative, Urine RBC 2- 4H, Urine WBC 0-2, Urine Squamous Epithelial Cells Occasional, Urine Bacteria Occasional Current Medications Medications (Trade) Dose Ordered Sig/Artie Route PRN Reason Start Time Stop Time Status Last Admin Dose Admin Allopurinol (Zyloprim) 100 mg DAILY ORAL 11/15/16 13:30 12/15/16 13:29 11/16/16 08:52 Dextrose (Dextrose 50%) STAT PRN IV Hypoglycemia 11/14/16 13:00 12/14/16 12:59 Diltiazem HCl (Cardizem) 10 mg EVERY HOUR PRN IV heart rate more than 140 11/14/16 15:00 12/14/16 14:59 11/15/16 07:54 Furosemide (Lasix) 40 mg DAILY IV 11/15/16 09:00 12/14/16 15:59 11/16/16 08:52 Metoprolol Tartrate (Lopressor) 100 mg EVERY 12 HOURS ORAL 11/15/16 21:00 12/15/16 20:59 11/16/16 08:52 Morphine Sulfate (Morphine Sulfate) 4 mg Q4H PRN IVP For Pain 11/14/16 15:00 11/21/16 14:59 11/16/16 05:00 Naproxen (Naprosyn) 500 mg TWICE A DAY ORAL 11/15/16 18:00 12/15/16 17:59 11/16/16 08:55 Ondansetron HCl (Zofran) 4 mg Q6H PRN IVP Nausea & Vomiting 11/14/16 13:00 12/14/16 12:59 Polyethylene Glycol (Miralax) 17 gm DAILYPRN PRN ORAL Constipation 11/14/16 13:00 12/14/16 12:59 Temazepam (Restoril) 15 mg HSPRN PRN ORAL Insomnia 11/14/16 21:00 11/21/16 20:59 MORENA ACHARYA November 16, 2016 15:13
[2016-11-16 16:15] VITALS: BP 154/96
--- NOTE | 2016-11-16 17:22 | Cardiology Progress Note ---
Assessment/Plan Assessment/Plan atrial fibrillation with rapid ventricular rate chronic, congestive heart failure chronic stable, history of hematuria, kidney stone gout 8 x 5 x 11 cm posterior left subcapsular hematoma all trop neg ef is fine has moderate mr ct showed sub capsular hematoma kidney he has decided he want to go to his outside urlogist for evlaution bp is elevated he has soem sob is on iv lasix daily bp is elevated cr noted low dose norvasc for bp control tel reviwed lab reviewed hematoma romel be contraindication for anticoagualtion he bled 2 weeks ago he say when he tried anticoagulaiton has had afib for 40 years his main reson for visit was gout in knee not cv sysmptoms he says Subjective Cardiovascular: Reports: irregular heart rate, Denies: chest pain, lightheadedness Respiratory: Reports: shortness of breath Gastrointestinal/Abdominal: Denies: abdomen distended Genitourinary: Denies: burning Subjective righ knee pain Objective Last 24 Hour Vital Signs Date Time Temp Pulse Resp B/P Pulse Ox O2 Delivery O2 Flow Rate FiO2 11/16/16 12:29 98.1 62 16 152/100 100 11/16/16 11:56 89 11/16/16 10:15 97.7 11/16/16 09:50 81 16 Room Air 11/16/16 08:52 94 126/85 11/16/16 08:00 88 11/16/16 08:00 97.7 94 18 126/85 100 11/16/16 04:11 66 11/16/16 04:00 97.7 85 20 112/69 99 Room Air 11/16/16 01:42 86 11/16/16 00:00 98.2 65 18 113/64 98 Room Air 11/15/16 21:47 97 128/90 11/15/16 20:00 98.2 80 18 115/64 98 Room Air 11/15/16 20:00 110 11/15/16 19:11 80 18 Room Air General Appearance: no apparent distress, alert Neck: supple Cardiovascular: irregularly irregular Respiratory/Chest: chest wall non-tender, lungs clear Abdomen: normal bowel sounds, non tender, soft Extremities: no swelling Intake and Output 11/15/16 11/16/16 19:00 07:00 Intake Total 240 ml Balance 240 ml Intake Oral 240 ml # Bowel Movements 1 Laboratory Tests Test 11/16/16 06:30 5/15/17 11:30 Erythrocyte Sedimentation Rate 13 MM/HR (0-20) Uric Acid 8.7 mg/dL (3.0-7.5) H Troponin I < 0.30 ng/mL (<=0.30) C-Reactive Protein, Quantitative 1.0 mg/dL (< 0.5) H Rheumatoid Factor Screen Pending Anti-Nuclear Antibody Screen Pending Urine Color Pale yellow Urine Appearance Clear Urine pH 6.5 (4.5-8.0) Urine Specific [place] 1.010 (1.005-1.035) Urine Protein 1+ (NEGATIVE) H Urine Glucose (UA) Negative (NEGATIVE) Urine Ketones Negative (NEGATIVE) Urine Occult Blood 1+ (NEGATIVE) H Urine Nitrite Negative (NEGATIVE) Urine Bilirubin Negative (NEGATIVE) Urine Urobilinogen 4 MG/DL (0.0-1.0) H Urine Leukocyte Esterase Negative (NEGATIVE) Urine RBC 2-4 /HPF (0 - 0) H Urine WBC 0-2 /HPF (0 - 0) Urine Squamous Epithelial Cells Occasional /LPF Urine Bacteria Occasional /HPF (NONE) TREY GUADALUPE November 16, 2016 17:22
--- NOTE | 2016-11-16 18:48 | General Progress Note ---
Progress Note Progress Note [id number] full note dictated ADWOA MAC November 16, 2016 18:48
[2016-11-16 20:18] VITALS: BP 109/73
--- NOTE | 2016-11-16 21:20 | Diagnostic Imaging Report ---
APPROVED REPORT CPT Code: 44283 Present Symptoms Lower Extremity Pain: Bilateral Lower Extremity Edema: Bilateral Comments: Hx CHF, A-FIB, GOUT. BILATERAL: Imaging reveals a patent deep venous system bilaterally. There is no evidence of thrombus within the femoral, popliteal or tibial segments. The greater saphenous veins are also within normal limits. Doppler indicates normal spontaneous flow within these segments.
--- NOTE | 2016-11-16 23:19 | Consultation ---
DATE OF CONSULTATION: 11/16/2016 REASON FOR CONSULTATION: Gross hematuria. HISTORY OF PRESENT ILLNESS: I was asked by Dr. Espinoza to see the patient with gross hematuria. He is very pleasant 66-year-old patient with recurrent gout and this time was admitted to the hospital for recurring gout attack and developed gross hematuria. He denies any history of gross hematuria in the past as well as any prostate symptoms in the past as well. He describes his hematuria as . PAST MEDICAL HISTORY: Four years ago, he underwent detachment of right eye retina. He known to have high blood pressure and congestive heart failure. MEDICATIONS: The patient is on furosemide and metoprolol. FAMILY HISTORY: His father at 40, complication of diabetes. He has twelve children. REVIEW OF SYMPTOMS: Essentially negative . PHYSICAL EXAMINATION: GENERAL: He is afebrile. VITAL SIGNS: Stable. LUNGS: Clear to auscultation. CARDIOVASCULAR: Regular rate and rhythm. ABDOMEN: Soft and nontender. Bowel sounds are positive. RECTAL: Mildly enlarged prostate. NEUROLOGIC: Intact. LABORATORY AND DIAGNOSTIC DATA: Renal ultrasound showed some fluid collection on the left kidney. ASSESSMENT AND PLAN: The patient has gross hematuria of unclear etiology. We will order CT urogram with and without IV contrast to assess his upper trach. He will need a prolapse . Temporarily, his anticoagulation has to be stopped and resumed if condition stabilizes. Thank you again for entrusting me in the care of this patient. I will follow this patient with you. Dougie Glover M.D. DR: Brad JOB#: [id number] CC:
[2016-11-17 00:09] VITALS: BP 121/79
--- NOTE | 2016-11-17 02:29 | Consultation ---
DATE OF CONSULTATION: 11/16/2016 NEPHROLOGY CONSULTATION CONSULTING PHYSICIAN: Natividad Lees M.D. REFERRING PHYSICIAN: Abbey Espinoza M.D. REASON FOR CONSULTATION: Acute renal failure. HISTORY OF PRESENT ILLNESS: The patient is a 66-year-old very pleasant male with past medical history significant for history of atrial fibrillation, history of congestive heart failure, and history of gout, came to the emergency room at [facility] complaining of bilateral lower extremity swelling and gouty attacks and also the patient found to be in atrial fibrillation with rapid ventricular response. The patient has a history of hematoma and off the anticoagulation. On admission, the patient found to have acute renal failure. I was called for management of renal disease and electrolyte imbalance. PAST MEDICAL HISTORY: Includin. Hypertension. 2. History of gout. 3. History of atrial fibrillation. 4. History of congestive heart failure. 5. History of kidney stones. PAST SURGICAL HISTORY: None. ALLERGIES: He is allergic to Tylenol, hydrocodone, and Vicodin. FAMILY HISTORY: Noncontributory. 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 He denies any history of tobacco, alcohol, or drug use. REVIEW OF SYSTEMS: General: He complained of generalized weakness. Denied any fever, chills, or night sweats. Head And Neck: Denies any dysphagia, odynophagia, blurry vision, headache, or neck stiffness. Pulmonary: Denied any shortness of breath, cough, or sputum. Cardiovascular: Denies any chest pain or palpitations. Gastrointestinal: Denies any nausea, vomiting, diarrhea, hematemesis, or hematochezia. Genitourinary: Denies any dysuria, frequency, or hematuria. Musculoskeletal: Complaining of bilateral lower extremity edema and pain on his knee and his ankle, which at this time is resolved. PHYSICAL EXAMINATION: VITAL SIGNS: The patient had temperature of 98, blood pressure 122/92, pulse rate of 82, and respiratory rate of 18. HEAD AND NECK: No JVP. No LAD. No thyromegaly. Extraocular movements are intact. Pupils are reactive to light and accommodation. LUNGS: Clear to auscultation. CARDIAC: Regular rate and rhythm. S1, S2. No murmur. No rub. ABDOMEN: Soft, nontender, and nondistended. EXTREMITIES: No edema. No clubbing. No cyanosis. LABORATORY AND DIAGNOSTIC DATA: Lab values revealed WBC count of 16,000; hemoglobin was 13, hematocrit of 40, and platelet count of 377,000. Chemistry revealed sodium 137, potassium 4.1, 97 chloride, 23 bicarbonate, BUN of 30, creatinine of 1.4, glucose of 110, uric acid of 8.9, calcium of 10.7, and phosphorus of 2.9. AST of 61, ALT of 79, and alkaline phosphorus of 99. UA revealed specific gravity of 1.010, pH of 6, blood 1+, WBC of 0 to 2, RBCs 2 to 4, and random urine sodium 104. The patient had an ultrasound of the kidney, which revealed bilateral foci of bilateral kidney, nonspecific could represent non-obstructive calculi, CT was recommended, no hydronephrosis was seen. CT of the abdomen revealed a 8 x 5 x 11 cm posterior subcapsular hematoma, etiology of none known, nonobstructive stone on the left kidney, multiple lateral kidney cysts. Calcification on the liver. ASSESSMENT AND PLAN: 1. Acute renal failure. The etiology of acute renal failure including acute tubular necrosis versus chronic kidney disease due to chronic use of NSAIDs versus cardiorenal syndrome. 2. The patient was in atrial fibrillation with rapid ventricular response on admission. 3. Kidney stones. The kidney stones were non-calcified, so uric acid kidney stone is possibility. Plan for the patient is to obtain a UA. Check the random urine protein creatinine ratio to calculate the proteinuria. Check the urine sodium and creatinine to calculate fractional excretion of sodium. We will continue with current antihypertensive medications. I would consider starting the patient on to alkalinize the urine for the kidney stones. I would monitor renal function and electrolytes closely. I would try to treat the acute gout attacks with Medrol pack, if recurrent then try to avoid indomethacin and NSAIDs and naproxen. I would like to thank, Dr. Espinoza, for allowing me to participate in the care of this patient. Natividad Lees M.D. DR: MICHAEL JOB#: [id number] CC:
[2016-11-17 03:58] VITALS: BP 156/76
[2016-11-17] MEDS: Morphine Sulfate 4mg/ml Inj IVP PRN ×2 (04:59→12:09)
[2016-11-17 06:11] LABS: RHEUMATOID FACTOR SCREEN <10.0 IU/mL (0.0-13.9)
[2016-11-17 06:16] LABS: CREATININE, RANDOM URINE 71.3 mg/dL
--- NOTE | 2016-11-17 07:48 | Nephrology Progress Note ---
Assessment/Plan Assessment 1. Acute renal failure. The etiology of acute renal failure including acute tubular necrosis versus chronic kidney disease due to chronic use of NSAIDs versus cardiorenal syndrome due to atrial fibrillation with rapid ventricular 2. Kidney stones. 3.afib 4.CHF Plan Plan to star Medrol dose pack start Urocit K to alkalinize urine dietary consult monitoring renal function avoid NSAID Subjective Constitutional: Reports: weakness HEENT: Reports: no symptoms Genitourinary: Reports: no symptoms Neurologic/Psychiatric: Reports: no symptoms Subjective alert and awake still has his gout attack in his right knee and bilateral lower ext swelling Objective Objective Last 24 Hour Vital Signs Date Time Temp Pulse Resp B/P Pulse Ox O2 Delivery O2 Flow Rate FiO2 11/17/16 04:00 75 11/17/16 03:58 98.2 88 20 156/76 96 Room Air 11/17/16 00:09 98.5 86 19 121/79 96 Room Air 11/17/16 00:00 85 11/16/16 21:14 98 121/68 11/16/16 20:18 98.8 83 20 109/73 93 Room Air 11/16/16 20:00 85 11/16/16 19:30 80 16 Room Air 21 11/16/16 16:15 97.0 74 16 154/96 98 11/16/16 15:49 94 11/16/16 12:29 98.1 62 16 152/100 100 11/16/16 11:56 89 11/16/16 10:15 97.7 11/16/16 09:50 81 16 Room Air 11/16/16 08:52 94 126/85 11/16/16 08:00 88 11/16/16 08:00 97.7 94 18 126/85 100 Intake and Output 11/16/16 11/17/16 19:00 07:00 Intake Total 960 ml 120 ml Balance 960 ml 120 ml Intake Oral 960 ml 120 ml # Voids 2 # Bowel Movements 3 Laboratory Tests 11/16/16 11:30: Urine Color Pale yellow, Urine Appearance Clear, Urine pH 6.5, Urine Specific [place] 1.010, Urine Protein 1+H, Urine Glucose (UA) Negative, Urine Ketones Negative, Urine Occult Blood 1+H, Urine Nitrite Negative, Urine Bilirubin Negative, Urine Urobilinogen 4H, Urine Leukocyte Esterase Negative, Urine RBC 2- 4H, Urine WBC 0-2, Urine Squamous Epithelial Cells Occasional, Urine Bacteria Occasional 11/17/16 02:00: Urine Eosinophils None seen, Urine Random Creatinine [Pending], Urine Random Microalbumin [Pending], Urine Random Total Protein 7, Urine Random Sodium 91, Urine Creatinine 71.3, Urine Microalbumin/Creatinine Ratio [Pending] Height (Feet): 5 Height (Inches): 9.00 Weight (Pounds): 215 Objective HEAD AND NECK: No JVP. No LAD. No thyromegaly. Extraocular movements are intact. Pupils are reactive to light and accommodation. LUNGS: Clear to auscultation. CARDIAC: Regular rate and rhythm. S1, S2. No murmur. No rub. ABDOMEN: Soft, nontender, and nondistended. EXTREMITIES: 2+ edema. No clubbing. No cyanosis. ADWOA MAC November 17, 2016 07:48
[2016-11-17 07:57] VITALS: BP 134/97
[2016-11-17] MEDS: Allopurinol 100mg Tab ORAL SCH (08:01)
[2016-11-17] MEDS ORDERED: Sodium Citrate 30ml ORAL SCH (11:30)
[2016-11-17 11:54] VITALS: BP 109/76
--- NOTE | 2016-11-17 13:01 | Pulmonology Progress Note ---
Assessment/Plan Problems: (1) Atrial fibrillation with RVR (2) Right-sided heart failure (3) Renal insufficiency (4) Peripheral edema (5) Gout Assessment/Plan heart rate controlled diuresing well d/w Dr Mendez Cardio note reviewed Urology consult appreciated for cystoscopy as out patient Subjective ROS Limited/Unobtainable: No Allergies: Coded Allergies: ACETAMINOPHEN (Verified Allergy, Unknown, 11/14/16) HYDROCODONE (Verified Allergy, Unknown, 11/14/16) Uncoded Allergies: VICODEN (Allergy, Unknown, 11/14/16) Objective Last 24 Hour Vital Signs Date Time Temp Pulse Resp B/P Pulse Ox O2 Delivery O2 Flow Rate FiO2 11/17/16 11:54 97.0 87 18 109/76 98 Room Air 11/17/16 08:01 89 134/97 11/17/16 08:00 81 11/17/16 07:57 98.1 89 18 134/97 100 Room Air 11/17/16 07:45 75 16 Room Air 21 11/17/16 04:00 75 11/17/16 03:58 98.2 88 20 156/76 96 Room Air 11/17/16 00:09 98.5 86 19 121/79 96 Room Air 11/17/16 00:00 85 11/16/16 21:14 98 121/68 11/16/16 20:18 98.8 83 20 109/73 93 Room Air 11/16/16 20:00 85 11/16/16 19:30 80 16 Room Air 21 11/16/16 16:15 97.0 74 16 154/96 98 11/16/16 15:49 94 Intake and Output 11/16/16 11/17/16 19:00 07:00 Intake Total 960 ml 120 ml Balance 960 ml 120 ml Intake Oral 960 ml 120 ml # Voids 2 # Bowel Movements 3 General Appearance: WD/WN HEENT: normocephalic, atraumatic Respiratory/Chest: chest wall non-tender, lungs clear Cardiovascular: normal peripheral pulses, regular rhythm Abdomen: normal bowel sounds, soft, non tender Genitourinary: normal external genitalia Extremities: no cyanosis Skin: no rash Microbiology Date/Time Source Procedure Growth Status 11/16/16 11:30 Urine,Clean Catch Urine Culture - Preliminary NO GROWTH Resulted Laboratory Tests 11/17/16 02:00: Urine Eosinophils None seen, Urine Random Creatinine [Pending], Urine Random Microalbumin [Pending], Urine Random Total Protein 7, Urine Random Sodium 91, Urine Creatinine 71.3, Urine Microalbumin/Creatinine Ratio [Pending] Current Medications Medications (Trade) Dose Ordered Sig/Artie Route PRN Reason Start Time Stop Time Status Last Admin Dose Admin Allopurinol (Zyloprim) 100 mg DAILY ORAL 11/15/16 13:30 12/15/16 13:29 11/17/16 08:01 Dextrose (Dextrose 50%) STAT PRN IV Hypoglycemia 11/14/16 13:00 12/14/16 12:59 Diltiazem HCl (Cardizem) 10 mg EVERY HOUR PRN IV heart rate more than 140 11/14/16 15:00 12/14/16 14:59 11/15/16 07:54 Furosemide (Lasix) 40 mg DAILY IV 11/15/16 09:00 12/14/16 15:59 11/17/16 08:00 Methylprednisolone (Medrol) 4 mg ACBREAKFAST ORAL 11/18/16 06:30 11/22/16 07:30 Methylprednisolone (Medrol) 4 mg DAILY@1300 ORAL 11/18/16 13:00 11/20/16 14:00 Methylprednisolone (Medrol) 4 mg DAILY@1800 ORAL 11/17/16 18:00 11/19/16 19:00 Methylprednisolone (Medrol) 4 mg QHS ORAL 11/19/16 21:00 11/21/16 22:00 Methylprednisolone (Medrol) 8 mg QHS ORAL 11/17/16 21:00 11/18/16 22:00 Metoprolol Tartrate (Lopressor) 100 mg EVERY 12 HOURS ORAL 11/15/16 21:00 12/15/16 20:59 11/17/16 08:01 Morphine Sulfate (Morphine Sulfate) 4 mg Q4H PRN IVP For Pain 11/14/16 15:00 11/21/16 14:59 11/17/16 12:09 Ondansetron HCl (Zofran) 4 mg Q6H PRN IVP Nausea & Vomiting 11/14/16 13:00 12/14/16 12:59 Polyethylene Glycol (Miralax) 17 gm DAILYPRN PRN ORAL Constipation 11/14/16 13:00 12/14/16 12:59 Sodium Citrate (Bicitra) 30 ml BIDBL ORAL 11/17/16 11:30 12/17/16 11:29 11/17/16 12:06 Temazepam (Restoril) 15 mg HSPRN PRN ORAL Insomnia 11/14/16 21:00 11/21/16 20:59 MORENA ACHARYA November 17, 2016 13:01
[2016-11-17] MEDS ORDERED: ACETAMINOPHEN-1 EAC1 ORAL (14:08)
[2016-11-17 21:11] LABS: ANTI-NUCLEAR ANTIBODY SCREEN Negative (Negative)
[2016-11-18 15:13] LABS: CREATININE RANDOM URINE 72.8 mg/dL (Not Estab.); MICROALBUMIN/CREATININE RATIO 9.2 mg/g creat (0.0-30.0)
--- NOTE | 2016-11-18 21:06 | Discharge Summary ---
Discharge Summary Hospital Course Date of Admission November 14, 2016 at 09:28 Date of Discharge November 17, 2016 at 14:45 Admitting Diagnosis Atrial Fibrillation with RVR HPI Robin Charles is a 66 year old male who was admitted on November 14, 2016 at 09:28 for Atrial Fibrilation With Rapid Ventricular Rate Hospital Course [id number] Discharge Discharge Disposition Patient was discharged to Home (01) Discharge Diagnoses: Cori Gustafson NP November 18, 2016 21:06
--- NOTE | 2016-11-19 05:11 | Discharge Summary 2 SIG ---
DATE OF ADMISSION: 11/14/2016 DATE OF DISCHARGE: 11/17/2016 CONSULTANTS: 1. Natividad Lees M.D. 2. Dougie Glover M.D. 3. Fan Clement M.D. BRIEF HOSPITAL COURSE: The patient is a 66-year-old male, who was residing at home with history of atrial fibrillation, gout and CHF, presented to [facility] complaining of swelling of both legs and gouty attack. On evaluation at ED, EKG showed rapid atrial fibrillation. Chest x-ray was unremarkable except for a somewhat widened mediastinum. Uric acid was also elevated to 8.7. Heart rate improved with IV diltiazem and the patient was admitted to telemetry. Cardiology evaluation was done and was started with anticoagulation. He used to be on anticoagulation, but it was stopped secondary to hematuria. Urology was consulted. Dr. Lees was also consulted. Creatinine was 1.4. Ultrasound of the kidney showed echogenic fossae on bilateral kidney, which could represent nonobstructive calculi. CT scan was done and showed a 8 x 5 x 11 posterior left subcapsular hematoma with a nonobstructive stone in the left kidney and multiple bilateral renal cysts. There was no evidence of renal mass. He was recommended need for cystoscopy. The patient's renal failure, etiology includes acute tubular necrosis versus chronic kidney disease due to chronic use of NSAIDs versus cardiorenal syndrome, due to atrial fibrillation with RVR. He also presented with elevated uric acid and was started on Urocit to alkalinize the urine. Knee x-ray was done showed osteoarthritis. Venous duplex was negative for DVT. All troponins have been negative. Echocardiogram showed ejection fraction of 55% to 60% with moderate mitral regurgitation. Hematoma was contraindication for anticoagulation. He was advised to follow up with urologist as an outpatient. He had been diuresing well. The patient was discharged home. FINAL DIAGNOSES: 1. Atrial fibrillation with rapid ventricular response. 2. Acute gout. 3. Acute renal failure. 4. Congestive heart failure chronic and stable. 5. Left subcapsular renal hematoma. 6. Hematuria. 7. Peripheral edema. Abbey Espinoza M.D. I have been assigned to dictate discharge summary on this account and I was not involved in the patient's management. Cori Gustafson N.P. DR: TRAVIS JOB#: [id number] CC:
--- NOTE | 2016-11-19 17:56 | Cardiology Report ---
APPROVED REPORT EKG Measurement Heart [id number] Atrial fibrillation with rapid ventricular response Abnormal ECG
== END 2016-11-17 14:45 | disposition home or self-care (01) | DRG 308 ==
LOC: EMR 08:45 → 2E 09:28 → EDBEDREQ 11:05
DX: I48.91 Unspecified atrial fibrillation (principal); N17.0 Acute kidney failure with tubular necrosis; I50.9 Heart failure, unspecified; J44.9 Chronic obstructive pulmonary disease, unspecified; R31.9 Hematuria, unspecified; N20.0 Calculus of kidney; M10.9 Gout, unspecified; R31.0 Gross hematuria; I10 Essential (primary) hypertension; Z88.6 Allergy status to analgesic agent
CPT/HCPCS: 36415; 71010; 74178; 76775; 80048; 80053; 80069; 80300; 81001; 81003; 82043; 82044; 82436; 82533; 82550; 82570; 83735; 83880; 83930; 83935; 84100; 84133; 84300; 84439; 84443; 84481; 84484; 84550; 85025; 85610; 85651; 85730; 86039; 86140; 86431; 87086; 89050; 93005; 93306; 93970; 94664; J2405

== ENCOUNTER 2016-12-01 07:35 | Emergency (ER) | payer MEDICARE, MEDICAID ==
[~2016-12-01] VITALS: Ht 175.3 cm; Wt 104.3 kg
[~2016-12-01 07:35] MED LIST changes: +ACETAMINOPHEN-1 EAC1 ORAL
[2016-12-01] MEDS ORDERED: Morphine Sulfate 4mg/ml Inj IM ONE (08:15)
--- NOTE | 2016-12-01 08:15 | Emergency Room Report ---
History of Present Illness General Chief Complaint: Pain Source: Patient Present Illness HPI Patient presents with right knee pain. He states this is his gout. He states he ran out of his pain medication and medication for gout. Pain is 10/10 excruciating and burning pressure. Doesn't radiate. He also has some back pain also. Denies any fevers, nausea, vomiting, diarrhea. He states he usually takes OxyContin. He is requesting a shot of morphine at this time. He was recently taken off of his blood thinners because of hematuria. H/O atrial fib. The patient had a recent admission for congestive heart failure. He's had significant decrease in his peripheral edema this is taking water pills at this time. Denies any chest pain and dyspnea. 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 Reviewed Nursing Documentation: PMH: Agreed, PSxH: Agreed Nursing Documentation-PMH Hx Hypertension: Yes Review of Systems All Other Systems: negative except mentioned in HPI Physical Exam Vital Signs Date Time Temp Pulse Resp B/P Pulse Ox O2 Delivery O2 Flow Rate FiO2 12/01/16 07:52 98.1 86 15 157/98 99 Room Air Sp02 EP Interpretation: reviewed, normal General Appearance: well appearing, no apparent distress, GCS 15, other - dapper Head: normocephalic Eyes: bilateral eye normal inspection, bilateral eye other - arcus ENT: moist mucus membranes Neck: supple Respiratory: lungs clear, normal breath sounds Cardiovascular #1: regular rate, rhythm, edema - trace bilat Cardiovascular #2: 2+ dorsalis pedis (R), 2+ dorsalis pedis (L) Gastrointestinal: normal inspection, normal bowel sounds, non tender, no mass, non-distended Musculoskeletal: gait/station normal, normal range of motion, no calf tenderness, pelvis stable, Mayda's Sign negative, swelling - and effusion R knee. Ambulatory Neurologic: alert, oriented x3 Psychiatric: mood/affect normal Skin: normal inspection, other - no warmth or erythema Medical Decision Making Diagnostic Impression: Primary Impression: Gout attack Qualified Codes: M10.9 - Gout, unspecified Additional Impression: CHF (congestive heart failure) Qualified Codes: I50.32 - Chronic diastolic (congestive) heart failure ER Course Patient presents with R knee pain. Ddx: gout, strain/sprain, dvt. Latter excluded by physical examination. Patient requesting shot and medicine for pain. Recent labs reviewed. Patient sleeping after morphine. Improved and ambulatory Last creat = 1.2 Last uric acid = 8.7 11/15/16 Last Vital Signs Date Time Temp Pulse Resp B/P Pulse Ox O2 Delivery O2 Flow Rate FiO2 12/01/16 09:58 94 14 133/87 98 Room Air 12/01/16 08:47 98.0 Status: improved Disposition: HOME, SELF-CARE Condition: Improved Scripts Tramadol Hcl* (ULTRAM*) 50 Mg Tablet 50 MG ORAL Q6H Y for For Pain, #12 TAB 0 Refills Prov: Tim Gil M.D. 12/01/16 Colchicine (Colchicine) 0.6 Mg Capsule 0.6 MG PO Q6HR, #20 CAP Prov: Tim Gil M.D. 12/01/16 Tim Gil M.D. December 01, 2016 08:15
[2016-12-01] MEDS ORDERED: COLCHICINE0.6 M1 PO (09:36)
[2016-12-01] MEDS ORDERED: TRAMADOL HCL50 MG ORAL (09:36)
[2016-12-01 09:58] VITALS: BP 133/87
== END 2016-12-01 10:04 | disposition home or self-care (01) ==
LOC: EMR 08:12
DX: M10.9 Gout, unspecified (principal); I50.32 Chronic diastolic (congestive) heart failure; I10 Essential (primary) hypertension; Z88.6 Allergy status to analgesic agent
CPT/HCPCS: 96372; 99284; J2270; J2550

== ENCOUNTER 2016-12-07 19:27 | Emergency (ER) | payer MEDICARE, MEDICAID ==
[~2016-12-07] VITALS: Ht 175.3 cm; Wt 104.3 kg
[~2016-12-07 19:27] MED LIST changes: +COLCHICINE0.6 M1 PO; +TRAMADOL HCL50 MG ORAL
[2016-12-07 19:40] VITALS: BP 143/105
--- NOTE | 2016-12-07 19:46 | Emergency Room Report ---
History of Present Illness General Chief Complaint: Back Pain-No Injury Source: Patient Present Illness HPI Patient present with complaints of right knee pain and lower back pain Reports that he has had pain in that area for the past several months He reports his gout flares up and at times his leg gives out Denies any fevers or chills denies any chest pressures of breath Reports that he was in [place] recently Denies any fall or trauma Denies any neuropathy Allergies: Coded Allergies: ACETAMINOPHEN (Verified Allergy, Unknown, 11/14/16) HYDROCODONE (Verified Allergy, Unknown, 11/14/16) Uncoded Allergies: VICODEN (Allergy, Unknown, 11/14/16) Patient History Past Medical History: see triage record Pertinent Family History: none Reviewed Nursing Documentation: PMH: Agreed, PSxH: Agreed Nursing Documentation-PMH Hx Hypertension: Yes Review of Systems All Other Systems: negative except mentioned in HPI Physical Exam Vital Signs Date Time Temp Pulse Resp B/P Pulse Ox O2 Delivery O2 Flow Rate FiO2 12/07/16 19:32 98.2 94 18 143/105 100 Room Air Sp02 EP Interpretation: reviewed, normal General Appearance: well appearing, no apparent distress Head: normocephalic, atraumatic Eyes: bilateral eye EOMI, bilateral eye PERRL ENT: normal pharynx Neck: supple Respiratory: lungs clear Cardiovascular #1: regular rate, rhythm Gastrointestinal: non tender, soft Musculoskeletal: other - Small joint effusion the right knee, no obvious erythema Neurologic: alert, oriented x3, responsive Skin: other - As above Lymphatic: no adenopathy Medical Decision Making Diagnostic Impression: Primary Impression: Drug-seeking behavior Additional Impressions: Arthralgia Gout ER Course Patient has multiple differentials considered including but not limited to arthralgia Gout arthritis Septic joint Given the patient's discomfort I did discuss with him the need for close outpatient followup Patient has had multiple medications filled by multiple facilities The latest including from [facility] Patient at this time reports that he's not here for pain control and he would like to get the diagnosis of the pain Imaging study does not reveal any obvious acute pathology I discussed with him the importance of primary care physician followup, with further imaging such as MRI and specialty consultation Other X-Ray Diagnostic Results Other X-Ray Diagnostic Results #1: EP Interpretation: Yes Findings: no fractures, no dislocation, no soft tissue swelling, other - osteoarthritis Number of Views: 3 - left knee Other X-Ray Diagnostic Results #2: EP Interpretation: Yes Findings: no fractures, no dislocation, no soft tissue swelling, other - spondylosis Number of Views: 3 - L. spine Last Vital Signs Date Time Temp Pulse Resp B/P Pulse Ox O2 Delivery O2 Flow Rate FiO2 12/07/16 19:40 98.2 94 18 143/105 100 Room Air Status: unchanged Disposition: HOME, SELF-CARE Condition: Stable Additional Instructions: Patient is provided with the discharge instructions notified to follow up with primary doctor in the next 2-3 days otherwise return to the er with any worsening symptoms. Please note that this report is being documented using seedtag technology. This can lead to erroneous entry secondary to incorrect interpretation by the dictating instrument. JAIRON THAO D.O. Dec 07, 2016 19:46
[2016-12-07 21:07] VITALS: BP 143/105
--- NOTE | 2016-12-08 11:01 | Diagnostic Imaging Report ---
Indication: Pain 3 views of the right knee were obtained. Findings: Bones are osteopenic. Narrowing of the joint space especially the patellofemoral compartment demonstrated. Osteophytes noted. No fracture seen. Impression: Osteoarthritis
--- NOTE | 2016-12-08 14:48 | Diagnostic Imaging Report ---
Indication: Back pain Comparison: None Findings: 3 views of the lumbar spine were obtained. Multilevel narrowing of intervertebral disks and associated endplate and Facet osteophytes are present. No malalignment identified. No acute fracture definitely seen. Impression: Mild spondylosis. No acute injury appreciated.
== END 2016-12-07 21:09 | disposition home or self-care (01) ==
LOC: EMR 19:40
DX: M25.50 Pain in unspecified joint (principal); M10.9 Gout, unspecified; Z76.5 Malingerer [conscious simulation]; I10 Essential (primary) hypertension; Z88.6 Allergy status to analgesic agent
CPT/HCPCS: 72020; 99284

== ENCOUNTER 2016-12-26 20:50 | Emergency (ER) | payer MEDICARE, MEDICAID ==
[~2016-12-26] VITALS: Ht 175.3 cm; Wt 99.8 kg
--- NOTE | 2016-12-26 21:27 | Emergency Room Report ---
History of Present Illness General Chief Complaint: Pain Source: Patient Present Illness HPI Patient presents with edema and increased gout pain in R knee. Ran out of colchicine. Denies trauma, fever, calf pain, dyspnea, hemoptysis. Recent problem of anticoagulation for a fib with hematuria, now off of anticoagulation. Denies chest pain, palps or dizziness. Pain is 3/10. From last visit / increased ability to walk and edema is lessened. On aspirin for anticoagulation. Frustrated with his MD. He has been modifying his diet. Seen here 11/04 for gout. HPI Patient presents with right knee pain. He states this is his gout. He states he ran out of his pain medication and medication for gout. Pain is 10/10 excruciating and burning pressure. Doesn't radiate. He also has some back pain also. Denies any fevers, nausea, vomiting, diarrhea. He states he usually takes OxyContin. He is requesting a shot of morphine at this time. He was recently taken off of his blood thinners because of hematuria. H/O atrial fib. The patient had a recent admission for congestive heart failure. He's had significant decrease in his peripheral edema this is taking water pills at this time. Denies any chest pain and dyspnea. 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 Nursing Documentation: PMH: Agreed, PSxH: Agreed Nursing Documentation-PMH Hx Hypertension: Yes Review of Systems All Other Systems: negative except mentioned in HPI Physical Exam Vital Signs Date Time Temp Pulse Resp B/P Pulse Ox O2 Delivery O2 Flow Rate FiO2 12/26/16 21:08 98.2 84 16 143/100 99 Room Air Sp02 EP Interpretation: reviewed, normal General Appearance: well appearing, no apparent distress, GCS 15 Head: normocephalic Eyes: bilateral eye PERRL, bilateral eye normal inspection ENT: moist mucus membranes Neck: supple Respiratory: lungs clear, normal breath sounds Cardiovascular #1: irregularly irregular, edema - bilat Cardiovascular #2: 2+ radial (R) Gastrointestinal: normal inspection, normal bowel sounds, non tender, no mass, non-distended Musculoskeletal: back normal, gait/station normal, normal range of motion - sligh decrease, no calf tenderness, swelling - R knee without erytha or significant effusion, other - ligaments stable Neurologic: alert, oriented x3, grossly normal Psychiatric: mood/affect normal Skin: normal inspection, warm/dry Medical Decision Making Diagnostic Impression: Primary Impression: Gout Qualified Codes: M10.9 - Gout, unspecified ER Course Patient presents with knee pain and edema. Ddx: gout, DVT (exam against), edema , pseudogout amongst others. Requests treatment like he had before. Laboratory not indicated at this time. Will treat with colchicine. Not request opiates initially. Improved with treatment. Cures checked. Advised to find new MD. The patient is stable for outpatient observation and treatment. Last Vital Signs Date Time Temp Pulse Resp B/P Pulse Ox O2 Delivery O2 Flow Rate FiO2 12/27/16 00:23 98.2 84 17 142/88 100 Room Air Status: improved Disposition: HOME, SELF-CARE Condition: Improved Scripts Colchicine (Colchicine) 0.6 Mg Capsule 0.6 MG PO Q6HR, #20 CAP Prov: Tim Gil M.D. 12/27/16 Tramadol Hcl* (ULTRAM*) 50 Mg Tablet 50 MG ORAL Q6H Y for For Pain, #10 TAB 0 Refills Prov: Tim Gil M.D. 12/27/16 Tim Gil M.D. Dec 26, 2016 21:27
[2016-12-26 21:30] VITALS: BP 143/100
[2016-12-26] MEDS ORDERED: Morphine Sulfate 4mg/ml Inj IM ONE (21:45)
[2016-12-27] VITALS: BP 142/88
[2016-12-27] MEDS ORDERED: COLCHICINE0.6 M1 PO (00:12)
[2016-12-27] MEDS ORDERED: TRAMADOL HCL50 MG ORAL (00:12)
[2016-12-27 00:23] VITALS: BP 142/88
== END 2016-12-27 00:23 | disposition home or self-care (01) ==
LOC: EMR 22:07
DX: M10.9 Gout, unspecified (principal); I10 Essential (primary) hypertension; Z88.6 Allergy status to analgesic agent
CPT/HCPCS: 96372; 99283; J2270; J2550

== ENCOUNTER 2017-01-23 20:08 | Emergency (ER) | payer MEDICARE, MEDICAID ==
[~2017-01-23] VITALS: Ht 175.3 cm; Wt 99.8 kg
[2017-01-23] MEDS ORDERED: MOBIC7.5 MG ORAL (20:46)
--- NOTE | 2017-01-23 20:46 | Emergency Room Report ---
History of Present Illness General Chief Complaint: Lower Extremity Injury Source: Patient Present Illness HPI is a 66-year-old male with multiple medical problem. He also has a problem with gout. He presents with chief complaint of swelling to bilateral knees. Said that he has a gouty attack. Been here multiple time for the same. Denies any fever chills denies any nausea vomiting. As 01/11. No other complaint. Said he is compliant with his medication. Allergies: Coded Allergies: ACETAMINOPHEN (Verified Allergy, Unknown, 11/14/16) HYDROCODONE (Verified Allergy, Unknown, 11/14/16) Uncoded Allergies: VICODEN (Allergy, Unknown, 11/14/16) Patient History Past Medical History: see triage record, old chart reviewed, HTN, AFib Past Surgical History: other Pertinent Family History: none Social History: Denies: smoking Immunizations: other Reviewed Nursing Documentation: PMH: Agreed, PSxH: Agreed Nursing Documentation-PMH Hx Hypertension: Yes Review of Systems Eye: Denies: blurred vision, eye pain ENT: Denies: ear pain, nose congestion, throat swelling Respiratory: Denies: cough, shortness of breath Cardiovascular: Denies: chest pain, palpitations Gastrointestinal: Denies: abdominal pain, diarrhea, nausea, vomiting Musculoskeletal: Reports: joint pain, Denies: back pain Skin: Denies: rash Neurological: Denies: headache, numbness Endocrine: Denies: increased thirst, increased urine Hematologic/Lymphatic: Denies: easy bruising All Other Systems: negative except mentioned in HPI Physical Exam Vital Signs Date Time Temp Pulse Resp B/P Pulse Ox O2 Delivery O2 Flow Rate FiO2 01/23/17 20:16 98.1 74 18 105/74 97 vitals normal Sp02 EP Interpretation: reviewed, normal General Appearance: well appearing, no apparent distress, alert Head: normocephalic, atraumatic Eyes: bilateral eye EOMI, bilateral eye PERRL ENT: hearing grossly normal, normal pharynx Neck: full range of motion, supple, no meningismus Respiratory: chest non-tender, lungs clear, normal breath sounds Cardiovascular #1: regular rate, rhythm, no murmur Gastrointestinal: normal bowel sounds, non tender, no mass, no organomegaly, no bruit, non-distended Musculoskeletal: back normal, gait/station normal, normal range of motion, swelling - 1+ edema bilaterally. Neurologic: alert, oriented x3 Psychiatric: mood/affect normal Skin: warm/dry Medical Decision Making Diagnostic Impression: Primary Impression: Peripheral edema Additional Impressions: Knee pain Qualified Codes: M25.561 - Pain in right knee; M25.562 - Pain in left knee; G89.29 - Other chronic pain Opioid dependence Qualified Codes: F11.20 - Opioid dependence, uncomplicated ER Course Patient with knee pain. On the [employer] system, he had multiple prescriptions from multiple different doctors for controlled substances. He is walking without much difficulty. He doesn't appear to be any pain. We'll discharge home. Last Vital Signs Date Time Temp Pulse Resp B/P Pulse Ox O2 Delivery O2 Flow Rate FiO2 01/23/17 20:16 98.1 74 18 105/74 97 Status: unchanged Disposition: HOME, SELF-CARE Condition: Stable Scripts Meloxicam* (MOBIC*) 7.5 Mg Tablet 7.5 MG ORAL DAILY, #30 TAB 0 Refills Prov: BARBARA JACOBO M.D. 01/23/17 Additional Instructions: Followup with your DrTarsha in 7 days. You may benefit from a pain specialist. Return if symptom worsen. BARBARA JACOBO M.D. Jan 23, 2017 20:46
[2017-01-23 21:05] VITALS: BP 105/74
== END 2017-01-23 21:05 | disposition home or self-care (01) ==
LOC: EMR 20:51
DX: R60.0 Localized edema (principal); M25.562 Pain in left knee; F11.20 Opioid dependence, uncomplicated; I10 Essential (primary) hypertension; I48.91 Unspecified atrial fibrillation; Z88.6 Allergy status to analgesic agent
CPT/HCPCS: 99283

== ENCOUNTER 2017-03-23 23:31 | Emergency (ER) | payer MEDICARE, MEDICAID ==
[~2017-03-23] VITALS: Ht 175.3 cm; Wt 90.7 kg
[~2017-03-23 23:31] MED LIST changes: +MOBIC7.5 MG ORAL
[2017-03-23 23:40] VITALS: BP 153/99
--- NOTE | 2017-03-24 00:39 | Emergency Room Report ---
History of Present Illness General Chief Complaint: Pain Source: Patient Present Illness HPI 66-year-old male history of A. fib, gout, hypertension, presenting with bilateral ankle pain and swelling for one week. Patient states he normally takes Lasix 20 mg as needed, states that he ran out of his medication 2 days ago , and has increased swelling to lower legs. Patient also states that he has gout, and he has pain from down for the last week. Patient states that he takes pain medications, however opioids making very constipated and itchy. Patient denies any fever chills nausea vomiting chest pain shortness of breath cough. No history of DVT Allergies: Coded Allergies: ACETAMINOPHEN (Verified Allergy, Unknown, 11/14/16) HYDROCODONE (Verified Allergy, Unknown, 11/14/16) Uncoded Allergies: VICODEN (Allergy, Unknown, 11/14/16) Patient History Past Medical History: see triage record Past Surgical History: none Pertinent Family History: none Reviewed Nursing Documentation: PMH: Agreed, PSxH: Agreed Nursing Documentation-PMH Hx Hypertension: Yes Physical Exam Vital Signs Date Time Temp Pulse Resp B/P (MAP) Pulse Ox O2 Delivery O2 Flow Rate FiO2 03/23/17 23:36 97.9 88 16 153/99 98 Room Air Sp02 EP Interpretation: reviewed, normal General Appearance: normal inspection, well appearing, no apparent distress, alert, GCS 15, non-toxic, other - nontoxic, conversing appropriately, not in any distress Head: normocephalic, atraumatic Eyes: bilateral eye normal inspection, bilateral eye PERRL, bilateral eye EOMI ENT: normal ENT inspection, normal pharynx, normal voice, moist mucus membranes Neck: normal inspection, full range of motion, supple Respiratory: normal inspection, lungs clear, normal breath sounds, no respiratory distress, no retraction, no wheezing, speaking full sentences, chest symmetrical Cardiovascular #1: normal inspection, regular rate, rhythm, no edema, normal capillary refill Cardiovascular #2: 2+ radial (R), 2+ radial (L) Gastrointestinal: normal inspection, non tender, soft, non-distended, no guarding Genitourinary: no CVA tenderness Musculoskeletal: other - 2+ pitting edema b/l LE, mildly TTP, b/l ankles TTP, no gross bony deformities Neurologic: normal inspection, alert, oriented x3, responsive, motor strength/ tone normal, sensory intact, normal gait, speech normal Psychiatric: normal inspection, judgement/insight normal, memory normal Skin: normal inspection, normal color, no rash, warm/dry, well hydrated, normal turgor Medical Decision Making Diagnostic Impression: Primary Impression: Gout Additional Impressions: Peripheral edema Renal insufficiency ER Course 66 young male with bilateral leg swelling, history of gout DDX: Edema secondary to heart failure, versus gout Less likely to be DVT Plan: Obtain labs, ua, ucx, diuresis ER course: Patient has remained stable during ED stay. feels much better Given Lasix Labs: leukocytosis, renal insufficiency ( unknown baseline) continues to be nontoxic appearing, vital signs are stable, not tachycardic not febrile UA negative Disposition: Patient is to be discharged to home. Patient is instructed to follow up with their primary care doctor within 5 days. Patient informed of impaired renal function, Also with slight leukocytosis. At this time there is no source of infection, and patient is not complaining of any dysuria cough fever chills. Patient is instructed to followup for repeat labs within one week with his primary care . Strict return precautions discussed with patient such as fever, chills, worsening/severe pain, nausea, vomiting, which may indicate severe illness. Patient verbalizes understanding and agrees with plan. Please note that this Emergency Department Report was dictated using [employer] management assistant technology software, occasionally this can lead to erroneous entry secondary to interpretation by the dictation equipment Laboratory Tests Test 03/24/17 00:40 03/24/17 01:23 White Blood Count 13.3 K/UL (4.8-10.8) H Red Blood Count 4.35 M/UL (4.70-6.10) L Hemoglobin 13.4 G/DL (14.2-18.0) L Hematocrit 41.4 % (42.0-52.0) L Mean Corpuscular Volume 95 FL (80-99) Mean Corpuscular Hemoglobin 30.9 PG (27.0-31.0) Mean Corpuscular Hemoglobin Concent 32.5 G/DL (32.0-36.0) Red Cell Distribution Width 12.6 % (11.6-14.8) Platelet Count 265 K/UL (150-450) Mean Platelet Volume 8.3 FL (6.5-10.1) Neutrophils (%) (Auto) 83.4 % (45.0-75.0) H Lymphocytes (%) (Auto) 8.2 % (20.0-45.0) L Monocytes (%) (Auto) 8.0 % (1.0-10.0) Eosinophils (%) (Auto) 0.0 % (0.0-3.0) Basophils (%) (Auto) 0.4 % (0.0-2.0) Sodium Level 139 mEQ/L (135-145) Potassium Level 4.4 mEQ/L (3.4-4.9) Chloride Level 104 mEQ/L (98-107) Carbon Dioxide Level 25 mEQ/L (20-30) Anion Gap 10 (5-15) Blood Urea Nitrogen 37 mg/dL (7-23) H Creatinine 1.8 mg/dL (0.7-1.2) H Estimate Glomerular Filtration Rate 45.9 mL/min (>60) Glucose Level 116 mg/dL (74-106) H Calcium Level 11.1 mg/dL (8.6-10.2) H Total Bilirubin 0.3 mg/dL (0.0-1.2) Aspartate Amino Transferase (AST) 22 U/L (5-40) Alanine Aminotransferase (ALT) 27 U/L (3-41) Alkaline Phosphatase 68 U/L (40-129) Troponin I < 0.30 ng/mL (<=0.30) Pro-B-Type Natriuretic Peptide 1330 pg/mL (0-125) H Total Protein 6.5 g/dL (6.6-8.7) L Albumin 3.8 g/dL (3.5-5.2) Globulin 2.7 g/dL Albumin/Globulin Ratio 1.4 (1.0-2.7) Urine Color Pending Urine Appearance Pending Urine pH Pending Urine Specific [place] Pending Urine Protein Pending Urine Glucose (UA) Pending Urine Ketones Pending Urine Occult Blood Pending Urine Nitrite Pending Urine Bilirubin Pending Urine Urobilinogen Pending Urine Leukocyte Esterase Pending Urine RBC Pending Urine WBC Pending Urine Squamous Epithelial Cells Pending Urine Bacteria Pending EKG Diagnostic Results Rate: normal Rhythm: NSR ST Segments: other - Q waves inf leads, and I, +PVCs ASA given to the pt in ED: No Rhythm Strip Diag. Results EP Interpretation: yes Rate: 70 Rhythm: NSR, no PVC's, no ectopy Chest X-Ray Diagnostic Results Chest X-Ray Diagnostic Results : Chest X-Ray Ordered: Yes # of Views/Limited/Complete: 1 View Indication: Other EP Interpretation: Yes Interpretation: other - cardiomegaly Impression: Other - cardiomegaly Electronically Signed by: Electronically signed by Mason Simmons MD Last Vital Signs Date Time Temp Pulse Resp B/P (MAP) Pulse Ox O2 Delivery O2 Flow Rate FiO2 03/23/17 23:40 97.9 88 16 153/99 98 Room Air Disposition: HOME, SELF-CARE Condition: Improved Referrals: NON PHYSICIAN (PCP) Additional Instructions: Your renal function is slightly impaired, please follow up with your doctor for repeat blood tests in 1 week. Please return to the emergency room if you are having high fever chills chest pain shortness of breath nausea or vomiting or increase or worsening pain Mason Simmons M.D. Mar 24, 2017 00:39
[2017-03-24 00:59] LABS: BASOPHILS % (AUTO) 0.4 % (0.0-2.0); LYMPHOCYTES % (AUTO) 8.2 % (20.0-45.0); MEAN CORPUSCULAR HEMOGLOBIN 30.9 PG (27.0-31.0); MEAN CORPUSCULAR HGB CONC 32.5 G/DL (32.0-36.0); MEAN CORPUSCULAR VOLUME 95 FL (80-99); MEAN PLATELET VOLUME 8.3 FL (6.5-10.1); NEUTROPHILS % (AUTO) 83.4 % (45.0-75.0); PLATELET COUNT 265 K/UL (150-450); RED BLOOD COUNT 4.35 M/UL (4.70-6.10); RED CELL DISTRIBUTION WIDTH 12.6 % (11.6-14.8); WHITE BLOOD COUNT 13.3 K/UL (4.8-10.8)
[2017-03-24 01:25] LABS: ALBUMIN/GLOBULIN RATIO 1.4 (1.0-2.7); CALCIUM 11.1 mg/dL (8.6-10.2); CREATININE 1.8 mg/dL (0.7-1.2); GLOMERULAR FILTRATION RATE 45.9 mL/min (>60); POTASSIUM 4.4 mEQ/L (3.4-4.9); TOTAL PROTEIN 6.5 g/dL (6.6-8.7); TROPONIN I < 0.30 ng/mL (<=0.30)
[2017-03-24 01:40] VITALS: BP 155/91
[2017-03-24] MEDS ORDERED: KEFLEX500 MG ORAL (02:35)
[2017-03-24 03:40] VITALS: BP 155/91
[2017-03-24 03:45] VITALS: BP 151/88
[2017-03-24 04:15] LABS: APPEARANCE,URINE CLEAR; KETONES,URINE NEGATIVE (NEGATIVE); LEUKOCYTE ESTERASE ,URINE 1+ (NEGATIVE); NITRITE,URINE NEGATIVE (NEGATIVE); PH,URINE 5 (4.5-8.0); PROTEIN,URINE NEGATIVE (NEGATIVE); UROBILINOGEN,URINE NORMAL MG/DL (0.0-1.0)
[2017-03-24 04:17] LABS: BACTERIA,URINE FEW /HPF; SQUAMOUS EPITHELIAL CELL,UR FEW /LPF (NONE/OCC)
--- NOTE | 2017-03-24 11:36 | Diagnostic Imaging Report ---
Indication: PAIN Technique: One view of the chest Comparison: 11/14/2016 Findings: Heart is enlarged. The aorta is tortuous and ectatic. Upper mediastinum is unremarkable. No significant change Impression: No acute process
--- NOTE | 2017-03-24 16:28 | Cardiology Report ---
APPROVED REPORT EKG Measurement Heart [id number] Sinus rhythm with premature ventricular complexes Otherwise normal ECG
== END 2017-03-24 03:45 | disposition home or self-care (01) ==
LOC: EMR 23:54
DX: M10.9 Gout, unspecified (principal); R60.9 Edema, unspecified; N28.9 Disorder of kidney and ureter, unspecified; M25.572 Pain in left ankle and joints of left foot; M25.571 Pain in right ankle and joints of right foot; Z88.6 Allergy status to analgesic agent; Z88.5 Allergy status to narcotic agent; I10 Essential (primary) hypertension
CPT/HCPCS: 36415; 71010; 80053; 81001; 83880; 84484; 85025; 93005; 96374; 99284; J1940

== ENCOUNTER 2017-04-23 09:08 | Emergency (ER) | payer MEDICARE, MEDICAID ==
[~2017-04-23] VITALS: Ht 175.3 cm; Wt 99.8 kg
[~2017-04-23 09:08] MED LIST changes: +KEFLEX500 MG ORAL
[2017-04-23 09:25] VITALS: BP 125/82
--- NOTE | 2017-04-23 09:59 | Emergency Room Report ---
History of Present Illness General Chief Complaint: Pain Source: Patient, Medical Record Present Illness HPI 66-year-old male history of A. fib on anticoagulation, CHF, COPD, hypertension, gout, presenting with gout flare, patient states that bilateral big toes very very painful and swollen, no fever no chills, states that this is similar to his previous gout flareups, no history of recent prednisone use Allergies: Coded Allergies: ACETAMINOPHEN (Verified Allergy, Unknown, 11/14/16) HYDROCODONE (Verified Allergy, Unknown, 11/14/16) Uncoded Allergies: VICODEN (Allergy, Unknown, 11/14/16) Patient History Past Medical History: see triage record Past Surgical History: none Pertinent Family History: none Reviewed Nursing Documentation: PMH: Agreed, PSxH: Agreed Nursing Documentation-PMH Past Medical History: No History, Except For Hx Hypertension: Yes Review of Systems All Other Systems: negative except mentioned in HPI Physical Exam Vital Signs Date Time Temp Pulse Resp B/P (MAP) Pulse Ox O2 Delivery O2 Flow Rate FiO2 04/23/17 09:12 97.5 64 18 125/82 100 Room Air Sp02 EP Interpretation: reviewed, normal General Appearance: normal inspection, well appearing, no apparent distress, alert, GCS 15, non-toxic Head: normocephalic, atraumatic Eyes: bilateral eye normal inspection, bilateral eye PERRL, bilateral eye EOMI ENT: normal ENT inspection, normal pharynx, normal voice, moist mucus membranes Neck: normal inspection, full range of motion, supple Respiratory: normal inspection, lungs clear, normal breath sounds, no respiratory distress, no retraction, no wheezing, speaking full sentences, chest symmetrical Cardiovascular #1: normal inspection, regular rate, rhythm, no edema, normal capillary refill Cardiovascular #2: 2+ radial (R), 2+ radial (L) Gastrointestinal: normal inspection, non tender, soft, non-distended, no guarding Genitourinary: no CVA tenderness Musculoskeletal: back normal, normal range of motion, other - b/l feet at MCP swelling with TTP Neurologic: normal inspection, alert, oriented x3, responsive, motor strength/ tone normal, sensory intact, normal gait, speech normal Psychiatric: normal inspection, judgement/insight normal, memory normal Skin: normal inspection, normal color, no rash, warm/dry, well hydrated, normal turgor Medical Decision Making Diagnostic Impression: Primary Impression: Gout attack ER Course 66-year-old male with gout flare presenting with bilateral toe pain DDX: Likely gout flare Plan: Prednisone Offered other pain medication however patient states that he does not want to take it because he gets constipated ER course: Patient has remained stable during ED stay. Remains ambulatory Disposition: Patient is to be discharged to home. Prescriptions given are prednisone 40 mg for 5 days Patient is instructed to follow up with their primary care doctor within 5 days. Strict return precautions discussed with patient such as fever, chills, worsening/severe pain, nausea, vomiting, which may indicate severe illness. Patient verbalizes understanding and agrees with plan. Please note that this Emergency Department Report was dictated using Supernovapowerhouse mechanic technology software, occasionally this can lead to erroneous entry secondary to interpretation by the dictation equipment Last Vital Signs Date Time Temp Pulse Resp B/P (MAP) Pulse Ox O2 Delivery O2 Flow Rate FiO2 04/23/17 09:25 97.5 18 125/82 100 Room Air 04/23/17 09:12 64 Disposition: HOME, SELF-CARE Condition: Improved Scripts Prednisone* (PREDNISONE*) 20 Mg Tablet 40 MG ORAL DAILY for 5 Days, #10 TAB 0 Refills Prov: Mason Simmons M.D. 04/23/17 Referrals: NON PHYSICIAN (PCP) Mason Simmons M.D. Apr 23, 2017 09:59
[2017-04-23] MEDS ORDERED: PREDNISONE20 MG ORAL (10:04)
[2017-04-23 10:29] VITALS: BP 123/92
[2017-04-23 10:31] VITALS: BP 123/92
== END 2017-04-23 10:31 | disposition home or self-care (01) ==
LOC: EMR 09:52
DX: M10.9 Gout, unspecified (principal); I48.91 Unspecified atrial fibrillation; Z79.01 Long term (current) use of anticoagulants; J44.9 Chronic obstructive pulmonary disease, unspecified; I10 Essential (primary) hypertension; Z88.6 Allergy status to analgesic agent; Z88.5 Allergy status to narcotic agent
CPT/HCPCS: 99283

== ENCOUNTER 2017-08-21 19:14 | Emergency (ER) | payer MEDICARE, MEDICAID ==
[~2017-08-21] VITALS: Ht 175.3 cm; Wt 99.8 kg
[~2017-08-21 19:14] MED LIST changes: +PREDNISONE20 MG ORAL
[2017-08-21] MEDS ORDERED: INDOMETHACIN50 MG PO (19:32)
[2017-08-21] MEDS ORDERED: ALLOPURINOL100 M1 ORAL (19:32)
[2017-08-21] MEDS ORDERED: POTASSIUM CHLO10 ME3 ORAL (19:32)
[2017-08-21] MEDS ORDERED: PANTOPRAZOLE SO40 MG ORAL (19:32)
[2017-08-21] MEDS ORDERED: VERAPAMIL HCL80 MG ORAL (19:32)
[2017-08-21] MEDS ORDERED: ASPIRIN81 MG ORAL (19:32)
[2017-08-21] MEDS ORDERED: TRAMADOL HCL50 MG ORAL (19:32)
[2017-08-21] MEDS ORDERED: METOPROLOL SUCC25 MG ORAL (19:32)
[2017-08-21 20:00] VITALS: BP 118/66
[2017-08-21] MEDS ORDERED: COLCHICINE0.6 M1 PO (20:00)
[2017-08-21] MEDS ORDERED: INDOCIN25 MG ORAL (20:00)
[2017-08-21] MEDS ORDERED: Ketorolac 30mg Inj IM ONE (20:00)
--- NOTE | 2017-08-21 20:00 | Emergency Room Report ---
History of Present Illness General Chief Complaint: Pain Source: Patient Present Illness HPI 66 yo male patient presents to ER complaining of acute gout flare-up x1 week. Patient reports pain in bilateral toes and knees. Patient states he is able to ambulate independently without assistance. Patient reports recent labs show elevation in "crystal levels"; states xrays were done at that time and were "fine". Patient reports history of gout. States he "feels the gout coming on". Patient reports current physician is out of the country and he could not see them. Patient reports diet without lean meats; states he is on a "good gout diet". Denies recent history of trauma. Patient denies fever, chest pain, SOB. Allergies: Coded Allergies: No Known Allergies (Unverified , 08/21/17) Patient History Past Medical History: see triage record Reviewed Nursing Documentation: PMH: Agreed, PSxH: Agreed Nursing Documentation-PMH Past Medical History: No History, Except For Hx Hypertension: Yes Review of Systems All Other Systems: negative except mentioned in HPI Physical Exam Vital Signs Date Time Temp Pulse Resp B/P (MAP) Pulse Ox O2 Delivery O2 Flow Rate FiO2 08/21/17 19:25 97.6 77 16 115/66 99 Room Air 97.5 Sp02 EP Interpretation: reviewed, normal General Appearance: well appearing, no apparent distress, alert, GCS 15, non- toxic Head: normocephalic, atraumatic Eyes: bilateral eye normal inspection, bilateral eye PERRL ENT: hearing grossly normal, normal pharynx, normal voice, uvula midline, moist mucus membranes Neck: normal inspection, full range of motion, no bony tend Respiratory: normal inspection, lungs clear, normal breath sounds, no accessory muscle use, no wheezing, speaking full sentences Cardiovascular #1: regular rate, rhythm, no edema Cardiovascular #2: 2+ dorsalis pedis (R), 2+ dorsalis pedis (L) Musculoskeletal: back normal, digits/nails normal, gait/station normal, normal range of motion, no calf tenderness Neurologic: alert, oriented x3, responsive, motor strength/tone normal, normal gait Psychiatric: mood/affect normal Skin: no rash, warm/dry, palpation normal, other - swollen MTP of first digit bilaterally, skin intact, subcuntaneous nodules on palpation, mild erythema, no open wound, no drainage, Medical Decision Making PA Attestation Dr. Simmons is my supervising physician with whom patient management has been discussed with. Diagnostic Impression: Primary Impression: Gout attack ER Course Pt. presents to the ED c/o right foot pain. Ddx considered but are not limited to gout, sprain, strain, contusion. Vital signs: are WNL, pt. is afebrile No imaging required at this time. ED INTERVENTIONS: Toradol provided for pain. DISCHARGE: -Rx provided for Indomethacin for pain symptoms. -Rx provided for Colchicine. At this time pt. is stable for d/c to home. Will provide printed patient care instructions, and any necessary prescriptions. Patient instructed to follow with primary care provider in 3 - 5 days and to discuss further gout and foot pain treatment. Care plan and follow up instructions have been discussed with the patient prior to discharge. Take medications as directed. Patient questions asked and answered. ER precautions given, patient instructed to return to ER immediately for any new or worsening of symptoms. Last Vital Signs Date Time Temp Pulse Resp B/P (MAP) Pulse Ox O2 Delivery O2 Flow Rate FiO2 08/21/17 19:25 97.6 77 16 115/66 99 Room Air 97.5 Disposition: HOME, SELF-CARE Condition: Stable Scripts Indomethacin (Indomethacin) 50 Mg Capsule 25 MG ORAL Q8H, #15 CAP 0 Refills Prov: Dougie Tracy 08/21/17 Colchicine (Colchicine) 0.6 Mg Capsule 0.6 MG PO BID for 7 Days, #30 CAP Prov: Dougie Tracy 08/21/17 Patient Instructions: Gout, [id number] Additional Instructions: Followup with primary care provider in 3 -5 days. Take medications as directed. Patient questions asked and answered. ER precautions given, patient instructed to return to ER immediately for any new or worsening of symptoms. Dougie Tracy Aug 21, 2017 20:00
[2017-08-21 20:15] VITALS: BP 118/66
== END 2017-08-21 20:15 | disposition home or self-care (01) ==
LOC: EMR 20:01
DX: M10.9 Gout, unspecified (principal); I10 Essential (primary) hypertension
CPT/HCPCS: 96372; 99284; J1885

== ENCOUNTER 2017-08-31 07:19 | Emergency (ER) | payer MEDICARE, MEDICAID ==
[~2017-08-31] VITALS: Ht 175.3 cm; Wt 104.3 kg
[~2017-08-31 07:19] MED LIST changes: +ALLOPURINOL100 M1 ORAL; +INDOCIN25 MG ORAL; +INDOMETHACIN50 MG PO; +METOPROLOL SUCC25 MG ORAL; +PANTOPRAZOLE SO40 MG ORAL; +POTASSIUM CHLO10 ME3 ORAL; +VERAPAMIL HCL80 MG ORAL
[2017-08-31] MEDS ORDERED: TRAMADOL HCL50 MG ORAL (07:31)
[2017-08-31] MEDS ORDERED: CATAPRES0.2 MG ORAL (07:31)
[2017-08-31] MEDS ORDERED: COLCHICINE0.6 M1 PO (07:52)
[2017-08-31 07:56] VITALS: BP 145/102
[2017-08-31] MEDS ORDERED: Ketorolac 30mg Inj IM ONE (08:00)
[2017-08-31 08:26] VITALS: BP 136/91
--- NOTE | 2017-08-31 09:45 | Emergency Room Report ---
History of Present Illness General Chief Complaint: Pain Source: Patient Present Illness HPI 66-year-old male, history of hypertension, gout, presenting with Doppler. Patient states his knees and ankles have been more painful. Patient takes allopurinol. As well as indomethacin. Denies any trauma. No fever no chills Allergies: Coded Allergies: No Known Allergies (Unverified , 08/21/17) Patient History Past Medical History: see triage record Past Surgical History: none Pertinent Family History: none Reviewed Nursing Documentation: PMH: Agreed, PSxH: Agreed Nursing Documentation-PMH Hx Hypertension: Yes Review of Systems All Other Systems: negative except mentioned in HPI Physical Exam Vital Signs Date Time Temp Pulse Resp B/P (MAP) Pulse Ox O2 Delivery O2 Flow Rate FiO2 08/31/17 07:25 97.5 92 17 145/102 99 Room Air 97.5 Sp02 EP Interpretation: reviewed, normal General Appearance: normal inspection, well appearing, no apparent distress, alert, GCS 15, non-toxic Head: normocephalic, atraumatic Eyes: bilateral eye normal inspection, bilateral eye PERRL, bilateral eye EOMI ENT: normal ENT inspection, normal pharynx, normal voice, moist mucus membranes Neck: normal inspection, full range of motion, supple Respiratory: normal inspection, lungs clear, normal breath sounds, no respiratory distress, no retraction, no wheezing, speaking full sentences, chest symmetrical Cardiovascular #1: normal inspection, regular rate, rhythm, no edema, normal capillary refill Cardiovascular #2: 2+ radial (R), 2+ radial (L) Gastrointestinal: normal inspection, non tender, soft, non-distended, no guarding Genitourinary: no CVA tenderness Musculoskeletal: other - Bilateral knees and ankles, mild edema, has full range of motion, to palpation, jointer not warm no erythema Neurologic: normal inspection, alert, oriented x3, responsive, motor strength/ tone normal, sensory intact, normal gait, speech normal Psychiatric: normal inspection, judgement/insight normal, memory normal Skin: normal inspection, normal color, no rash, warm/dry, well hydrated, normal turgor Medical Decision Making Diagnostic Impression: Primary Impression: Gout attack ER Course 66-year-old male with bilateral knee and ankle pain, likely gout flare DDX: Gout flare Plan: Toradol ER course: Patient has remained stable during ED stay. Feels much better with pain medication Disposition: Patient is to be discharged to home. Prescriptions given are colchicine Patient is instructed to follow up with their primary care doctor within 5 days. Please note that this Emergency Department Report was dictated using [employer] user experience strategist technology software, occasionally this can lead to erroneous entry secondary to interpretation by the dictation equipment Last Vital Signs Date Time Temp Pulse Resp B/P (MAP) Pulse Ox O2 Delivery O2 Flow Rate FiO2 08/31/17 08:26 97.5 79 20 136/91 99 Room Air 207.5 Disposition: HOME, SELF-CARE Condition: Improved Scripts Colchicine (Colchicine) 0.6 Mg Capsule 0.6 MG PO BID, #30 CAP Prov: Mason Simmons M.D. 08/31/17 Referrals: NON PHYSICIAN (PCP) Patient Instructions: Gout, [id number] Mason Simmons M.D. Aug 31, 2017 09:45
== END 2017-08-31 08:32 | disposition home or self-care (01) ==
LOC: EMR 07:49
DX: M10.9 Gout, unspecified (principal); I10 Essential (primary) hypertension
CPT/HCPCS: 96372; 99283; J1885

== ENCOUNTER 2017-10-09 10:20 | Emergency (ER) | payer MEDICARE, MEDICAID ==
[~2017-10-09] VITALS: Ht 175.3 cm; Wt 104.3 kg
[~2017-10-09 10:20] MED LIST changes: +CATAPRES0.2 MG ORAL
[2017-10-09] MEDS ORDERED: Ketorolac 30mg Inj IM ONE (10:45)
--- NOTE | 2017-10-09 11:08 | Emergency Room Report ---
History of Present Illness General Chief Complaint: To Be Triaged Source: Patient Present Illness HPI 67-year-old male, history of gout, arthritis, CHF, presenting with lower extremity swelling and ankle pain and swelling. States that he have it he takes pain medications for gout but he doesn't like to take it because it makes him constipated. Chest pain or shortness of breath. States that he takes Lasix as well. Patient has been to the emergency room multiple times Allergies: Coded Allergies: No Known Allergies (Unverified , 08/21/17) Patient History Past Medical History: see triage record Past Surgical History: none Pertinent Family History: none Reviewed Nursing Documentation: PMH: Agreed; PSxH: Agreed Nursing Documentation-PMH Hx Hypertension: Yes Review of Systems All Other Systems: negative except mentioned in HPI Physical Exam Sp02 EP Interpretation: reviewed, normal General Appearance: alert, GCS 15, other - speaking in complete sentences, does not appear to be in pain, ambulating around ed Head: normocephalic, atraumatic Eyes: bilateral eye normal inspection, bilateral eye PERRL, bilateral eye EOMI ENT: normal ENT inspection, normal pharynx, normal voice, moist mucus membranes Neck: normal inspection, full range of motion, supple Respiratory: normal inspection, lungs clear, normal breath sounds, no respiratory distress, no retraction, no wheezing, speaking full sentences, chest symmetrical Cardiovascular #1: normal inspection, regular rate, rhythm, normal capillary refill, edema Cardiovascular #2: 2+ radial (R), 2+ radial (L) Gastrointestinal: normal inspection, non tender, soft, non-distended, no guarding Musculoskeletal: normal inspection, back normal, normal range of motion Neurologic: normal inspection, alert, oriented x3, responsive, normal gait Psychiatric: normal inspection, judgement/insight normal, memory normal Skin: normal inspection, normal color, no rash, warm/dry, well hydrated, normal turgor Medical Decision Making Diagnostic Impression: Primary Impression: [id number] Additional Impression: Gout ER Course 67-year-old male with lower extremity swelling, chronic ankle pain DDX: Gout, arthritis, CHF Plan: I offered to do labs, and possibly give Lasix to the patient for lower extremity swelling, however patient refusing, states that he has Lasix at home and does not need to take it. Patient very angry, and aggressive in the emergency room twice myself and staff. Patient states that he just wants Toradol ER course: Patient has remained stable during ED stay. Ambulatory, speaking complete sentences, not in respiratory distress Given Toradol Disposition: Patient is to be discharged to home. 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 Oct 09, 2017 11:08
[2017-10-09 11:14] VITALS: BP 170/115
== END 2017-10-09 11:26 | disposition home or self-care (01) ==
LOC: EMR 11:03
DX: M10.9 Gout, unspecified (principal); I50.9 Heart failure, unspecified; I11.0 Hypertensive heart disease with heart failure
CPT/HCPCS: 96372; 99283; J1885

== ENCOUNTER 2017-10-23 14:21 | Emergency (ER) | payer MEDICARE, MEDICAID ==
[~2017-10-23] VITALS: Ht 175.3 cm; Wt 104.3 kg
--- NOTE | 2017-10-23 14:31 | Emergency Room Report ---
History of Present Illness General Chief Complaint: Gout Attack Present Illness HPI 67 yo male patient presents to ER complaining of gout attack. Complains of pain in ankles and feet bilaterally. Patient reports hx of gout. Patient has been seen in ER multiple times for similar complaints. Reports treatment previously treated symptoms"very well". Reports ate red meat a "few days" ago and the pain returned. Reports being seen and followed by PCP for gout symptoms. Reports currently being seen by primary care provider for gout and edema symptoms. Reports wearing compression stockings and taking "water pill". Denies fever, chest pain, SOB, abdominal pain. Allergies: Coded Allergies: No Known Allergies (Unverified , 08/21/17) Patient History Past Medical History: see triage record Reviewed Nursing Documentation: PMH: Agreed; PSxH: Agreed Nursing Documentation-PMH Hx Cardiac Problems: Yes Hx Hypertension: Yes Review of Systems All Other Systems: negative except mentioned in HPI Physical Exam Vital Signs Date Time Temp Pulse Resp B/P (MAP) Pulse Ox O2 Delivery O2 Flow Rate FiO2 10/23/17 14:27 97.9 88 16 128/83 98 Room Air 97.9 Sp02 EP Interpretation: reviewed, normal General Appearance: well appearing, no apparent distress, alert, GCS 15, non- toxic Head: normocephalic, atraumatic Eyes: bilateral eye normal inspection, bilateral eye PERRL Neck: full range of motion Respiratory: lungs clear, normal breath sounds, no rhonchi, no respiratory distress, no accessory muscle use, no wheezing, speaking full sentences Cardiovascular #1: regular rate, rhythm, edema Musculoskeletal: back normal, digits/nails normal, gait/station normal, normal range of motion, non-tender, no calf tenderness, Mayda's Sign negative, swelling , other - Bilateral knees and ankles, mild edema, no TTP, no warmth to touch, no erythema, no gouty tophi Neurologic: alert, oriented x3, responsive, motor strength/tone normal, sensory intact, normal gait Skin: other - no ulcers Medical Decision Making PA Attestation Dr. Felder is my supervising Physician whom patient management has been discussed with. Diagnostic Impression: Primary Impression: Gout attack Additional Impression: Peripheral edema ER Course Pt. presents to the ED c/o gout attack. Ddx considered but are not limited to gout, cellulitis, peripheral edema. No pallor, paresthesias, pulselessness. Low suspicion for compartment syndrome. Low suspicion for septic joint. Vital signs: are WNL, pt. is afebrile Ordered medication. ED INTERVENTIONS: Prednisone 40mg Toradol provided in ER Patient reports given in ER previously and treated symptoms " very well". Reports takes colchicine for relief of gout symptoms. Continue to wear compression stockings.continue take medications as instructed by primary care provider. Followup with primary care provider for continued treatment and monitoring of symptoms related to bilateral leg edema. Do not eat red meat. Eat gout friendly diet. DISCHARGE: -Rx provided for prednisone fro 4 days, first dosage given in ER. -Rx provided for Colchicine. At this time pt. is stable for d/c to home. Patient resting comfortably, nontoxic appearing, talking without difficulty. Will provide printed patient care instructions, and any necessary prescriptions. Patient instructed to follow with primary care provider in 3 - 5 days and to discuss further gout and foot pain treatment. Care plan and follow up instructions have been discussed with the patient prior to discharge. Take medications as directed. Patient questions asked and answered. ER precautions given, patient instructed to return to ER immediately for any new or worsening of symptoms including but not limited to calf pain, SOB, chest pain. Disposition: HOME, SELF-CARE Condition: Stable Scripts Colchicine (Colchicine) 0.6 Mg Capsule 0.6 MG PO BID, #20 CAP Prov: Dougie Tracy 10/23/17 Prednisone* (PREDNISONE*) 20 Mg Tablet 40 MG ORAL DAILY for 4 Days, #8 TAB Prov: Dougie Tracy 10/23/17 Patient Instructions: Gout, [id number], Peripheral Edema Additional Instructions: Followup with primary care provider in 3 -5 days. Take medications as directed. Patient questions asked and answered. ER precautions given, patient instructed to return to ER immediately for any new or worsening of symptoms. Dougie Tracy Oct 23, 2017 14:31
[2017-10-23 14:52] VITALS: BP 126/80
[2017-10-23] MEDS ORDERED: Ketorolac 30mg Inj IM ONE (15:00)
[2017-10-23] MEDS ORDERED: PREDNISONE20 MG ORAL (15:02)
[2017-10-23] MEDS ORDERED: COLCHICINE0.6 M1 PO (15:02)
[2017-10-23 15:08] VITALS: BP 126/80
== END 2017-10-23 15:20 | disposition home or self-care (01) ==
LOC: EMR 15:15
DX: M10.9 Gout, unspecified (principal); R60.9 Edema, unspecified
CPT/HCPCS: 96372; 99284; J1885; J7512

== ENCOUNTER 2017-11-28 07:41 | Emergency (ER) | payer MEDICARE, MEDICAID ==
[~2017-11-28] VITALS: Ht 175.3 cm; Wt 104.3 kg
[2017-11-28 07:49] VITALS: BP 123/88
[2017-11-28] MEDS ORDERED: Ascorbic Acid 500mg tab ORAL ONE (08:30)
[2017-11-28] MEDS ORDERED: Dexamethasone 4mg/ml vial IM ONE (08:30)
[2017-11-28] MEDS ORDERED: HYDROcodone/Acetamin 10/325 tab ORAL ONE (08:30)
[2017-11-28] MEDS ORDERED: PREDNISONE20 MG ORAL (08:32)
[2017-11-28] MEDS ORDERED: COLCHICINE0.6 M1 PO (08:32)
[2017-11-28] MEDS ORDERED: VITAMIN C500 M1 ORAL (08:32)
[2017-11-28 08:58] VITALS: BP 123/88
--- NOTE | 2017-11-28 12:05 | Emergency Room Report ---
History of Present Illness General Chief Complaint: Pain Source: Patient, Medical Record Present Illness HPI Patient is a 67-year-old male brought in by self after increased lower extremity pain. Patient had prior history of gouty arthritis. The patient had previously been prescribed prednisone. The patient was noted to have worsening pain to lower extremities. Allergies: Coded Allergies: No Known Allergies (Unverified , 08/21/17) Patient History Past Medical History: see triage record Reviewed Nursing Documentation: PMH: Agreed; PSxH: Agreed Nursing Documentation-PMH Past Medical History: No History, Except For Hx Cardiac Problems: Yes - AFIBB Hx Hypertension: Yes Review of Systems All Other Systems: negative except mentioned in HPI Physical Exam Vital Signs Date Time Temp Pulse Resp B/P (MAP) Pulse Ox O2 Delivery O2 Flow Rate FiO2 11/28/17 07:43 98.1 99 18 123/88 99 Room Air 98.1 Sp02 EP Interpretation: reviewed, normal General Appearance: normal inspection, well appearing, no apparent distress, alert, GCS 15, Chronically Ill Head: atraumatic Eyes: bilateral eye other - disconjugate gaze ENT: normal ENT inspection, hearing grossly normal, normal voice Neck: normal inspection, supple, no bony tend, limited range of motion Respiratory: normal inspection, lungs clear, normal breath sounds, no respiratory distress, no retraction, no wheezing Cardiovascular #1: regular rate, rhythm, edema - bilateral pitting Gastrointestinal: normal inspection, normal bowel sounds, non tender, soft, no guarding, no hernia Genitourinary: no CVA tenderness Musculoskeletal: normal inspection, back normal, normal range of motion Neurologic: normal inspection, alert, oriented x3, responsive, chief crna III-XII nml as tested, speech normal Psychiatric: normal inspection, judgement/insight normal, mood/affect normal Skin: normal inspection, normal color, no rash Medical Decision Making Diagnostic Impression: Primary Impression: Gout attack Additional Impressions: Peripheral edema CHF (congestive heart failure) ER Course Patient is a 67-year-old male who presented for bilateral lower extremity pain. Differential diagnosis included was not limited to gouty arthritis, congestive heart failure exacerbation, renal failure, among others. Patient has a benign exam and does not appear to require any further imaging at this time. The patient declined laboratory testing. The patient states that the swelling to his legs is chronic and has not worsened. The patient was advised to low sodium diet. The patient was given prescriptions for medications for gout. He was advised follow-up with his primary care physician for recheck in one to 2 days.. Last Vital Signs Date Time Temp Pulse Resp B/P (MAP) Pulse Ox O2 Delivery O2 Flow Rate FiO2 11/28/17 08:58 98.1 72 18 123/88 99 Room Air 98.1 Status: improved Disposition: HOME, SELF-CARE Condition: Stable Scripts Prednisone* (PREDNISONE*) 20 Mg Tablet 40 MG ORAL DAILY, #10 TAB Prov: Fahad Castillo MD 11/28/17 Colchicine (Colchicine) 0.6 Mg Capsule 0.6 MG PO BID, #30 CAP Prov: Fahad Castillo MD 11/28/17 Ascorbic Acid* (VITAMIN C*) 500 Mg Tablet 500 MG ORAL TWICE A DAY, #60 TAB Prov: Fahad Castillo MD 11/28/17 Referrals: NON PHYSICIAN (PCP) Patient Instructions: Gout, Peripheral Edema Additional Instructions: Weigh yourself daily. Keep legs elevated as much as possible for next few days. Eat less than 2 grams daily of sodium. Fahad Castillo MD November 28, 2017 12:05
== END 2017-11-28 08:59 | disposition home or self-care (01) ==
LOC: EMR 08:06
DX: M10.9 Gout, unspecified (principal); R60.0 Localized edema; I11.0 Hypertensive heart disease with heart failure; I50.9 Heart failure, unspecified; I48.91 Unspecified atrial fibrillation
CPT/HCPCS: 96372; 99284

== ENCOUNTER 2017-11-28 12:34 | Inpatient (IN) | payer MEDICARE, MEDICAID ==
[~2017-11-28] VITALS: Ht 175.3 cm; Wt 99.8 kg
[~2017-11-28 12:34] MED LIST changes: +VITAMIN C500 M1 ORAL
[2017-11-28 12:41] VITALS: BP 133/81
--- NOTE | 2017-11-28 13:07 | Emergency Room Report ---
History of Present Illness General Chief Complaint: Pain Source: Patient, Medical Record Present Illness HPI 67-year-old male patient presents to ER complaining of bilateral foot pain. Patient was seen and C ER earlier today for similar symptoms. patient was instructed to return to ER if pain symptoms persisted for admission. Patient reports that he contact his primary care provider and was instructed be admitted. Patient reports that he was given make pain medication a few hours ago during first visit and since that time has been asleep in the ER waiting room. Denies other acute symptoms at this time. Reports eats in [employer] and symptoms begin afterward. Reports hx of afib. Allergies: Coded Allergies: No Known Allergies (Unverified , 08/21/17) Patient History Past Medical History: see triage record Reviewed Nursing Documentation: PMH: Agreed; PSxH: Agreed Nursing Documentation-PMH Past Medical History: No History, Except For Hx Cardiac Problems: Yes - AFIBB Hx Hypertension: Yes Review of Systems All Other Systems: negative except mentioned in HPI Physical Exam Vital Signs Date Time Temp Pulse Resp B/P (MAP) Pulse Ox O2 Delivery O2 Flow Rate FiO2 11/28/17 12:36 98.3 65 18 133/81 100 Room Air 98.2 Sp02 EP Interpretation: reviewed, normal General Appearance: well appearing, no apparent distress, alert, GCS 15, non- toxic Head: normocephalic, atraumatic Eyes: bilateral eye normal inspection, bilateral eye PERRL ENT: hearing grossly normal, normal pharynx, no angioedema, normal voice, uvula midline, moist mucus membranes Neck: full range of motion Respiratory: lungs clear, normal breath sounds, no rhonchi, no respiratory distress, no accessory muscle use, no wheezing, speaking full sentences Cardiovascular #1: regular rate, rhythm, edema - bilateral lower legs Musculoskeletal: back normal, digits/nails normal, gait/station normal, normal range of motion, non-tender Neurologic: alert, oriented x3, responsive, motor strength/tone normal, sensory intact Psychiatric: mood/affect normal Skin: no rash Medical Decision Making PA Attestation Dr. Castillo is my supervising Physician whom patient management has been discussed with. Diagnostic Impression: Primary Impression: Atrial fibrillation Additional Impressions: CHF (congestive heart failure) Acute gout ER Course Pt. presents to the ED c/o gout attack. Ddx considered but are not limited to gout, fracture, sprain, strain, contusion , cellulitis, arrhythmia, IA. patient denies calf pain, negative Homans sign, low suspicion for DVT at this time, pain likely secondary to gout. Vital signs: are WNL, pt. is afebrile ordered labs and EKG. ER course: present with him shows bilateral lower leg edema, patient states has not worsened. patient states that he continues to eat and [employer] prior to onset of symptoms. Patient he needs to discontinue eating at [employer], needs to eat [employer] diet. Instructed patient to decrease sodium intake. EKG shows A. fib, patient denies chest pain, shortness breath, acute complaints at this time, reports history of chronic A. fib.no RVR, does not require acute intervention at ER at this time. CBC and CMP unremarkable. BNP elevated. Chest x-ray shows no acute disease, mild cardiomegaly, consistent with previous x-ray of heart. Consult with Dr. Castillo, ordered Lasix for patient. Patient resting comfortably at this time. Patient will be admitted for CHF exacerbation, intractable gout pain. Patient will be admitted to telemetry. Patient will be admitted to Dr. Self. Labs Test 11/28/17 14:00 White Blood Count 8.3 K/UL (4.8-10.8) Red Blood Count 4.89 M/UL (4.70-6.10) Hemoglobin 14.6 G/DL (14.2-18.0) Hematocrit 45.4 % (42.0-52.0) Mean Corpuscular Volume 93 FL (80-99) Mean Corpuscular Hemoglobin 29.8 PG (27.0-31.0) Mean Corpuscular Hemoglobin Concent 32.2 G/DL (32.0-36.0) Red Cell Distribution Width 12.7 % (11.6-14.8) Platelet Count 185 K/UL (150-450) Mean Platelet Volume 8.8 FL (6.5-10.1) Neutrophils (%) (Auto) % (45.0-75.0) Lymphocytes (%) (Auto) % (20.0-45.0) Monocytes (%) (Auto) % (1.0-10.0) Eosinophils (%) (Auto) % (0.0-3.0) Basophils (%) (Auto) % (0.0-2.0) Differential Total Cells Counted 100 Neutrophils % (Manual) 83 % (45-75) Lymphocytes % (Manual) 15 % (20-45) Monocytes % (Manual) 2 % (1-10) Eosinophils % (Manual) 0 % (0-3) Basophils % (Manual) 0 % (0-2) Band Neutrophils 0 % (0-8) Platelet Estimate Adequate Platelet Morphology Normal Red Blood Cell Morphology Normal Sodium Level 138 MMOL/L (136-145) Potassium Level 4.7 MMOL/L (3.5-5.1) Chloride Level 108 MMOL/L (98-107) Carbon Dioxide Level 22 MMOL/L (21-32) Anion Gap 9 mmol/L (5-15) Blood Urea Nitrogen 29 mg/dL (7-18) Creatinine 1.8 MG/DL (0.55-1.30) Estimat Glomerular Filtration Rate 45.8 mL/min (>60) Glucose Level 126 MG/DL (74-106) Uric Acid 8.0 MG/DL (2.6-7.2) Calcium Level 10.0 MG/DL (8.5-10.1) Total Bilirubin 0.4 MG/DL (0.2-1.0) Aspartate Amino Transf (AST/SGOT) 44 U/L (15-37) Alanine Aminotransferase (ALT/SGPT) 91 U/L (12-78) Alkaline Phosphatase 99 U/L (46-116) Pro-B-Type Natriuretic Peptide 958 pg/mL (0-125) Total Protein 6.7 G/DL (6.4-8.2) Albumin 3.5 G/DL (3.4-5.0) Globulin 3.2 g/dL Albumin/Globulin Ratio 1.1 (1.0-2.7) EKG Diagnostic Results Rate: other - irregular Rhythm: other - irregular Other Impression atrial fibrillation, chronic No RVR ASA given to the pt in ED: No PA Scribe Text Diallo Tracy PA-C Rhythm Strip Diag. Results EP Interpretation: yes Rate: 98 PA Scribe Text Diallo Tracy PA-C Chest X-Ray Diagnostic Results Chest X-Ray Diagnostic Results : Chest X-Ray Ordered: Yes # of Views/Limited/Complete: 1 View Indication: Other EP Interpretation: Yes PA Xray: Interpretation reviewed, by supervising MD, and agrees with findings. Interpretation: no consolidation, no effusion, no pneumothorax, no acute cardiopulmonary disease Impression: Other - no acute disease, mild enlargement of the heart, consistent with previous reading PA Scribe Text Diallo Tracy PA-C Last Vital Signs Date Time Temp Pulse Resp B/P (MAP) Pulse Ox O2 Delivery O2 Flow Rate FiO2 11/28/17 12:41 98.2 86 18 133/81 100 Room Air 98.2 Disposition: ADMITTED INPATIENT Condition: Serious Dougie Tracy November 28, 2017 13:07
[2017-11-28 14:16] LABS: HEMATOCRIT 45.4 % (42.0-52.0); HEMOGLOBIN 14.6 G/DL (14.2-18.0); MEAN CORPUSCULAR VOLUME 93 FL (80-99); PLATELET COUNT 185 K/UL (150-450); RED BLOOD COUNT 4.89 M/UL (4.70-6.10); RED CELL DISTRIBUTION WIDTH 12.7 % (11.6-14.8); WHITE BLOOD COUNT 8.3 K/UL (4.8-10.8)
[2017-11-28 14:29] LABS: ANION GAP 9 mmol/L (5-15); BLOOD UREA NITROGEN 29 mg/dL (7-18); CARBON DIOXIDE 22 MMOL/L (21-32); CHLORIDE 108 MMOL/L (98-107); CREATININE 1.8 MG/DL (0.55-1.30); POTASSIUM 4.7 MMOL/L (3.5-5.1); SODIUM 138 MMOL/L (136-145)
[2017-11-28 14:52] VITALS: BP 138/76
[2017-11-28 14:53] LABS: ALANINE AMINOTRANSFERASE 91 U/L (12-78); ALBUMIN 3.5 G/DL (3.4-5.0); ALBUMIN/GLOBULIN RATIO 1.1 (1.0-2.7); ALKALINE PHOSPHATASE 99 U/L (46-116); ASPARTATE AMINO TRANSFERASE 44 U/L (15-37); BILIRUBIN,TOTAL 0.4 MG/DL (0.2-1.0)
[2017-11-28 17:20] VITALS: BP 124/51
[2017-11-28 18:18] LABS: CREATINE KINASE 73 U/L (26-308)
[2017-11-28] MEDS: Indomethacin 25mg cap ORAL SCH (18:19)
[2017-11-28] MEDS: cloNIDine 0.2mg Tab ORAL SCH (18:19)
--- NOTE | 2017-11-28 20:36 | History and Physical ---
History of Present Illness General Date patient seen: November 28, 2017 Reason for Hospitalization: Pain Present Illness HPI 67-year-old male with hx of afib, Gout presented to ER complaining of bilateral foot pain. He contributes the swelling and pain in his ankles to gout. Allergies: Coded Allergies: No Known Allergies (Unverified , 08/21/17) Medication History Scheduled Allopurinol* (Allopurinol*), 100 MG ORAL DAILY, (Reported) Ascorbic Acid* (Vitamin C*), 500 MG ORAL TWICE A DAY Aspirin* (Aspirin*), 81 MG ORAL DAILY, (Reported) Clonidine HCl (Clonidine HCl), 0.2 MG PO BID, (Reported) Clonidine Hcl* (Catapres*), 0.2 MG ORAL Q8HR, (Reported) Colchicine (Colchicine), 0.6 MG PO BID Colchicine (Colchicine), 0.6 MG PO BID Colchicine (Colchicine), 0.6 MG PO BID Colchicine (Colchicine), 0.6 MG PO BID Furosemide* (Lasix*), 20 MG ORAL BID, (Reported) Indomethacin (Indomethacin), 50 MG PO BID, (Reported) Indomethacin (Indomethacin), 25 MG ORAL Q8H Meloxicam* (Mobic*), 7.5 MG ORAL DAILY Metoprolol Succinate* (Metoprolol Succinate*), 25 MG ORAL BID, (Reported) Pantoprazole* (Pantoprazole*), 40 MG ORAL DAILY, (Reported) Potassium Chloride (Potassium Chloride), 10 MEQ ORAL DAILY, (Reported) Potassium Gluconate (Potassium), 20 MG PO DAILY, (Reported) Prednisone* (Prednisone*), 40 MG ORAL DAILY Prednisone* (Prednisone*), 40 MG ORAL DAILY Prednisone* (Prednisone*), 40 MG ORAL DAILY Tramadol Hcl* (Ultram*), 50 MG ORAL DAILY, (Reported) Verapamil Hcl* (Calan*), 40 MG ORAL THREE TIMES A DAY, (Reported) Scheduled PRN Acetaminophen With Codeine (T#3) (Tylenol #3 Tab*), 1 TAB ORAL Q4H PRN for For Pain, (Reported) Tramadol Hcl* (Ultram*), 50 MG ORAL Q6H PRN for For Pain, (Reported) Miscellaneous Medications [Aspirin ], (Reported) Patient History Healthcare decision maker Resuscitation status Advanced Directive on File Past Medical/Surgical History Past Medical/Surgical History: (1) Chronic gout (2) Atrial fibrillation Review of Systems Skin: Reports: no symptoms All Other Systems: negative except mentioned in HPI Physical Exam General Appearance: WD/WN, no apparent distress Lines, tubes and drains: peripheral, central line HEENT: normocephalic, atraumatic Neck: non-tender, normal alignment Respiratory/Chest: chest wall non-tender, lungs clear Cardiovascular/Chest: no JVD Abdomen: normal bowel sounds, non tender Extremities: severe edema, pitting 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 Last 24 Hour Vital Signs Date Time Temp Pulse Resp B/P (MAP) Pulse Ox O2 Delivery O2 Flow Rate FiO2 11/28/17 18:19 124/51 11/28/17 17:20 97.3 87 20 124/51 99 Room Air 97.3 11/28/17 17:16 98.0 89 20 132/76 100 Room Air 11/28/17 17:06 104 11/28/17 14:52 97.8 89 20 138/76 100 Room Air 97.8 11/28/17 12:41 98.2 86 18 133/81 100 Room Air 98.2 11/28/17 12:36 98.3 65 18 133/81 100 Room Air 98.2 Laboratory Tests Test 11/28/17 14:00 White Blood Count 8.3 K/UL (4.8-10.8) Red Blood Count 4.89 M/UL (4.70-6.10) Hemoglobin 14.6 G/DL (14.2-18.0) Hematocrit 45.4 % (42.0-52.0) Mean Corpuscular Volume 93 FL (80-99) Mean Corpuscular Hemoglobin 29.8 PG (27.0-31.0) Mean Corpuscular Hemoglobin Concent 32.2 G/DL (32.0-36.0) Red Cell Distribution Width 12.7 % (11.6-14.8) Platelet Count 185 K/UL (150-450) Mean Platelet Volume 8.8 FL (6.5-10.1) Neutrophils (%) (Auto) % (45.0-75.0) Lymphocytes (%) (Auto) % (20.0-45.0) Monocytes (%) (Auto) % (1.0-10.0) Eosinophils (%) (Auto) % (0.0-3.0) Basophils (%) (Auto) % (0.0-2.0) Differential Total Cells Counted 100 Neutrophils % (Manual) 83 % (45-75) H Lymphocytes % (Manual) 15 % (20-45) L Monocytes % (Manual) 2 % (1-10) Eosinophils % (Manual) 0 % (0-3) Basophils % (Manual) 0 % (0-2) Band Neutrophils 0 % (0-8) Platelet Estimate Adequate Platelet Morphology Normal Red Blood Cell Morphology Normal Sodium Level 138 MMOL/L (136-145) Potassium Level 4.7 MMOL/L (3.5-5.1) Chloride Level 108 MMOL/L (98-107) H Carbon Dioxide Level 22 MMOL/L (21-32) Anion Gap 9 mmol/L (5-15) Blood Urea Nitrogen 29 mg/dL (7-18) H Creatinine 1.8 MG/DL (0.55-1.30) H Estimat Glomerular Filtration Rate 45.8 mL/min (>60) Glucose Level 126 MG/DL (74-106) H Uric Acid 8.0 MG/DL (2.6-7.2) H Calcium Level 10.0 MG/DL (8.5-10.1) Total Bilirubin 0.4 MG/DL (0.2-1.0) Aspartate Amino Transf (AST/SGOT) 44 U/L (15-37) H Alanine Aminotransferase (ALT/SGPT) 91 U/L (12-78) H Alkaline Phosphatase 99 U/L (46-116) Total Creatine Kinase 73 U/L (26-308) Pro-B-Type Natriuretic Peptide 958 pg/mL (0-125) H Total Protein 6.7 G/DL (6.4-8.2) Albumin 3.5 G/DL (3.4-5.0) Globulin 3.2 g/dL Albumin/Globulin Ratio 1.1 (1.0-2.7) Height (Feet): 5 Height (Inches): 9.00 Weight (Pounds): 230 Medications Current Medications Medications (Trade) Dose Ordered Sig/Artie Route PRN Reason Start Time Stop Time Status Last Admin Dose Admin Allopurinol (Zyloprim) 100 mg DAILY ORAL 11/29/17 09:00 12/29/17 08:59 Clonidine HCl (Catapres tab) 0.2 mg BID ORAL 11/28/17 18:00 12/28/17 17:59 11/28/17 18:19 Heparin Sodium (Porcine) (Heparin 5000 units/ml) 5,000 units EVERY 12 HOURS SUBQ 11/28/17 21:00 12/28/17 20:59 Indomethacin (Indocin) 50 mg BID ORAL 11/28/17 18:00 12/28/17 17:59 11/28/17 18:19 Verapamil HCl (Calan) 40 mg Q8HR ORAL 11/28/17 22:00 12/28/17 21:59 Assessment/Plan Problem List: (1) Acute gout ICD Codes: M10.9 - Gout, unspecified SNOMED: 59410994, [id number] (2) Atrial fibrillation ICD Codes: I48.91 - Unspecified atrial fibrillation SNOMED: 28027903 Assessment/Plan symptomatic treatment iv sterids NSAID cardiology to see monitor heart rate Abbey Espinoza MD November 28, 2017 20:36
[2017-11-28] MEDS: Heparin 5000 units/ml inj SUBQ SCH (21:00)
[2017-11-28] MEDS: Verapamil 80mg tab ORAL SCH (23:04)
[2017-11-29] MEDS: Verapamil 80mg tab ORAL SCH ×3 (06:01→22:13)
[2017-11-29 06:49] LABS: APPEARANCE,URINE CLEAR; BILIRUBIN, URINE NEGATIVE (NEGATIVE); COLOR,URINE PALE YELLOW; GLUCOSE, URINE (UA) NEGATIVE (NEGATIVE); KETONES,URINE NEGATIVE (NEGATIVE); LEUKOCYTE ESTERASE ,URINE NEGATIVE (NEGATIVE); NITRITE,URINE NEGATIVE (NEGATIVE); PH,URINE 7 (4.5-8.0); PROTEIN,URINE NEGATIVE (NEGATIVE); UROBILINOGEN,URINE 4 MG/DL (0.0-1.0)
[2017-11-29 08:00] VITALS: BP 122/59
[2017-11-29] MEDS: Allopurinol 100mg Tab ORAL SCH (08:31)
[2017-11-29] MEDS: Indomethacin 25mg cap ORAL SCH ×2 (08:31→18:08)
[2017-11-29] MEDS: Heparin 5000 units/ml inj SUBQ SCH ×2 (08:39→21:00)
[2017-11-29] MEDS: cloNIDine 0.2mg Tab ORAL SCH ×2 (09:43→18:07)
[2017-11-29] MEDS: Morphine Sulfate 4mg/ml Inj IVP PRN ×4 (09:44→22:13)
--- NOTE | 2017-11-29 09:44 | Diagnostic Imaging Report ---
Indication: Reason For Exam: PAIN. Technique: XRAY Chest 1v. Comparison: 03/24/2017 Findings: The heart is normal in size. The lungs are clear. No pleural fluid. There is atherosclerotic change of the aorta. The bones are unremarkable. Impression: Atherosclerotic change. Otherwise negative chest.
--- NOTE | 2017-11-29 11:00 | Pulmonology Progress Note ---
Assessment/Plan Problems: (1) Acute gout (2) Atrial fibrillation Assessment/Plan iv steroids and lasix check echo monitor heart rate cardio to see. Subjective ROS Limited/Unobtainable: No Constitutional: Reports: no symptoms HEENT: Repors: no symptoms Respiratory: Reports: no symptoms Allergies: Coded Allergies: No Known Allergies (Unverified , 08/21/17) Objective Last 24 Hour Vital Signs Date Time Temp Pulse Resp B/P (MAP) Pulse Ox O2 Delivery O2 Flow Rate FiO2 11/29/17 09:43 122/59 11/29/17 08:22 192 11/29/17 07:56 98 11/29/17 06:01 72 11/29/17 05:10 92 11/29/17 00:02 114 11/28/17 23:04 73 117/84 11/28/17 18:19 124/51 11/28/17 17:20 97.3 87 20 124/51 99 Room Air 97.3 11/28/17 17:16 98.0 89 20 132/76 100 Room Air 11/28/17 17:06 104 11/28/17 14:52 97.8 89 20 138/76 100 Room Air 97.8 11/28/17 12:41 98.2 86 18 133/81 100 Room Air 98.2 11/28/17 12:36 98.3 65 18 133/81 100 Room Air 98.2 Intake and Output 11/28/17 11/29/17 19:00 07:00 Intake Total 250 ml Output Total 0 ml Balance 0 ml 250 ml Intake Oral 250 ml Output Urine Total 0 ml # Voids 2 # Bowel Movements 1 General Appearance: WD/WN HEENT: normocephalic, atraumatic Respiratory/Chest: chest wall non-tender, lungs clear Cardiovascular: normal peripheral pulses, normal rate, regular rhythm Abdomen: normal bowel sounds, soft, non tender Extremities: no cyanosis Skin: no rash 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 Laboratory Tests 11/28/17 14:00: White Blood Count 8.3, Red Blood Count 4.89, Hemoglobin 14.6, Hematocrit 45.4, Mean Corpuscular Volume 93, Mean Corpuscular Hemoglobin 29.8, Mean Corpuscular Hemoglobin Concent 32.2, Red Cell Distribution Width 12.7, Platelet Count 185, Mean Platelet Volume 8.8, Neutrophils (%) (Auto) , Lymphocytes (%) (Auto) , Monocytes (%) (Auto) , Eosinophils (%) (Auto) , Basophils (%) (Auto) , Differential Total Cells Counted 100, Neutrophils % (Manual) 83H, Lymphocytes % (Manual) 15L, Monocytes % (Manual) 2, Eosinophils % (Manual) 0, Basophils % ( Manual) 0, Band Neutrophils 0, Platelet Estimate Adequate, Platelet Morphology Normal, Red Blood Cell Morphology Normal, Sodium Level 138, Potassium Level 4.7 , Chloride Level 108H, Carbon Dioxide Level 22, Anion Gap 9, Blood Urea Nitrogen 29H, Creatinine 1.8H, Estimat Glomerular Filtration Rate 45.8, Glucose Level 126H, Uric Acid 8.0H, Calcium Level 10.0, Total Bilirubin 0.4, Aspartate Amino Transf (AST/SGOT) 44H, Alanine Aminotransferase (ALT/SGPT) 91H, Alkaline Phosphatase 99, Total Creatine Kinase 73, Pro-B-Type Natriuretic Peptide 958H, Total Protein 6.7, Albumin 3.5, Globulin 3.2, Albumin/Globulin Ratio 1.1 Current Medications Medications (Trade) Dose Ordered Sig/Artie Route PRN Reason Start Time Stop Time Status Last Admin Dose Admin Allopurinol (Zyloprim) 100 mg DAILY ORAL 11/29/17 09:00 12/29/17 08:59 11/29/17 08:31 Clonidine HCl (Catapres tab) 0.2 mg BID ORAL 11/28/17 18:00 12/28/17 17:59 11/29/17 09:43 Heparin Sodium (Porcine) (Heparin 5000 units/ml) 5,000 units EVERY 12 HOURS SUBQ 11/28/17 21:00 12/28/17 20:59 11/29/17 08:39 Indomethacin (Indocin) 50 mg BID ORAL 11/28/17 18:00 12/28/17 17:59 11/29/17 08:31 Morphine Sulfate (Morphine Sulfate) 4 mg Q4H PRN IVP For Pain 11/29/17 10:00 12/06/17 09:59 11/29/17 09:44 Verapamil HCl (Calan) 40 mg Q8HR ORAL 11/28/17 22:00 12/28/17 21:59 11/29/17 06:01 Abbey Espinoza MD November 29, 2017 11:00
[2017-11-29 12:00] VITALS: BP 127/84
[2017-11-29] MEDS: Solu-MEDROL 125mg Inj IV SCH ×2 (12:31→18:00)
[2017-11-29 13:03] LABS: CREATINE KINASE 26 U/L (26-308)
[2017-11-29 16:00] VITALS: BP 138/70
[2017-11-29 20:00] VITALS: BP 136/73
--- NOTE | 2017-11-29 23:24 | Consultation ---
History of Present Illness General Date patient seen: November 29, 2017 Time patient seen: 22:10 Chief Complaint: Pain Present Illness HPI 67 year old AAM admitted for gout attack - elevated uric acid levels Hx of atrial fibrillation. NO chest pain. Labs showed elevated BNP with CXR clear Allergies: Coded Allergies: No Known Allergies (Unverified , 08/21/17) Medication History Scheduled Allopurinol* (Allopurinol*), 100 MG ORAL DAILY, (Reported) Ascorbic Acid* (Vitamin C*), 500 MG ORAL TWICE A DAY Aspirin* (Aspirin*), 81 MG ORAL DAILY, (Reported) Clonidine HCl (Clonidine HCl), 0.2 MG PO BID, (Reported) Clonidine Hcl* (Catapres*), 0.2 MG ORAL Q8HR, (Reported) Colchicine (Colchicine), 0.6 MG PO BID Colchicine (Colchicine), 0.6 MG PO BID Colchicine (Colchicine), 0.6 MG PO BID Colchicine (Colchicine), 0.6 MG PO BID Furosemide* (Lasix*), 20 MG ORAL BID, (Reported) Indomethacin (Indomethacin), 50 MG PO BID, (Reported) Indomethacin (Indomethacin), 25 MG ORAL Q8H Meloxicam* (Mobic*), 7.5 MG ORAL DAILY Metoprolol Succinate* (Metoprolol Succinate*), 25 MG ORAL BID, (Reported) Pantoprazole* (Pantoprazole*), 40 MG ORAL DAILY, (Reported) Potassium Chloride (Potassium Chloride), 10 MEQ ORAL DAILY, (Reported) Potassium Gluconate (Potassium), 20 MG PO DAILY, (Reported) Prednisone* (Prednisone*), 40 MG ORAL DAILY Prednisone* (Prednisone*), 40 MG ORAL DAILY Prednisone* (Prednisone*), 40 MG ORAL DAILY Tramadol Hcl* (Ultram*), 50 MG ORAL DAILY, (Reported) Verapamil Hcl* (Calan*), 40 MG ORAL THREE TIMES A DAY, (Reported) Scheduled PRN Acetaminophen With Codeine (T#3) (Tylenol #3 Tab*), 1 TAB ORAL Q4H PRN for For Pain, (Reported) Tramadol Hcl* (Ultram*), 50 MG ORAL Q6H PRN for For Pain, (Reported) Miscellaneous Medications [Aspirin ], (Reported) Patient History Healthcare decision maker Resuscitation status Advanced Directive on File Review of Systems Constitutional: Reports: no symptoms Eye: Reports: no symptoms ENT: Reports: no symptoms Respiratory: Reports: no symptoms Cardiovascular: Reports: no symptoms Musculoskeletal: Reports: gout, joint pain, joint swelling Skin: Reports: no symptoms Psychiatric: Reports: no symptoms Neurological: Reports: no symptoms Endocrine: Reports: no symptoms Hematologic/Lymphatic: Reports: no symptoms Physical Exam General Appearance: no apparent distress Lines, tubes and drains: peripheral HEENT: normocephalic Neck: non-tender Respiratory/Chest: chest wall non-tender Cardiovascular/Chest: normal peripheral pulses, regularly irregular Abdomen: normal bowel sounds Extremities: normal range of motion 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 Last 24 Hour Vital Signs Date Time Temp Pulse Resp B/P (MAP) Pulse Ox O2 Delivery O2 Flow Rate FiO2 11/29/17 22:13 89 136/73 11/29/17 18:07 138/70 11/29/17 16:00 96.1 85 20 138/70 100 Room Air 96.1 11/29/17 15:29 91 11/29/17 14:26 81 127/84 11/29/17 12:00 97.3 81 20 127/84 100 Room Air 97.3 11/29/17 09:43 122/59 11/29/17 08:22 192 11/29/17 08:00 98.1 81 20 122/59 100 Room Air 98.1 11/29/17 07:56 98 11/29/17 06:01 72 11/29/17 05:10 92 11/29/17 00:02 114 Intake and Output 11/28/17 11/29/17 19:00 07:00 Intake Total 250 ml Output Total 0 ml Balance 0 ml 250 ml Intake Oral 250 ml Output Urine Total 0 ml # Voids 2 # Bowel Movements 1 Laboratory Tests Test 11/29/17 12:10 Uric Acid 7.4 MG/DL (2.6-7.2) H Total Creatine Kinase 26 U/L (26-308) Height (Feet): 5 Height (Inches): 9.00 Weight (Pounds): 230 Medications Current Medications Medications (Trade) Dose Ordered Sig/Artie Route PRN Reason Start Time Stop Time Status Last Admin Dose Admin Allopurinol (Zyloprim) 100 mg DAILY ORAL 11/29/17 09:00 12/29/17 08:59 11/29/17 08:31 Clonidine HCl (Catapres tab) 0.2 mg BID ORAL 11/28/17 18:00 12/28/17 17:59 11/29/17 18:07 Furosemide (Lasix) 40 mg EVERY 8 HOURS IV 11/29/17 14:00 12/29/17 13:59 11/29/17 22:12 Heparin Sodium (Porcine) (Heparin 5000 units/ml) 5,000 units EVERY 12 HOURS SUBQ 11/28/17 21:00 12/28/17 20:59 11/29/17 21:00 Indomethacin (Indocin) 50 mg BID ORAL 11/28/17 18:00 12/28/17 17:59 11/29/17 18:08 Methylprednisolone Sodium Succinate (Solu-MEDROL) 60 mg EVERY 6 HOURS IV 11/29/17 12:00 12/29/17 11:59 11/29/17 12:31 Morphine Sulfate (Morphine Sulfate) 4 mg Q4H PRN IVP For Pain 11/29/17 10:00 12/06/17 09:59 11/29/17 22:13 Verapamil HCl (Calan) 40 mg Q8HR ORAL 11/28/17 22:00 12/28/17 21:59 11/29/17 22:13 Assessment/Plan Assessment/Plan 1) Gout - indomethacin, colchicine, allopurinol, medrol, IV fluids, diet modification 2) Atrial fibrillation - verapamil 80 mg TID, start anticoagulation for stroke prevention 3) Elevated BNP - check 2D echocardiogram, no evidence of acute heart failure Tim Cardona M.D. November 29, 2017 23:24
[2017-11-30] VITALS: BP 107/74
[2017-11-30 04:00] VITALS: BP 144/99
[2017-11-30 04:41] LABS: APPEARANCE,URINE CLEAR; BILIRUBIN, URINE NEGATIVE (NEGATIVE); COLOR,URINE PALE YELLOW; GLUCOSE, URINE (UA) NEGATIVE (NEGATIVE); KETONES,URINE NEGATIVE (NEGATIVE); LEUKOCYTE ESTERASE ,URINE NEGATIVE (NEGATIVE); NITRITE,URINE NEGATIVE (NEGATIVE); PH,URINE 7 (4.5-8.0); PROTEIN,URINE NEGATIVE (NEGATIVE); UROBILINOGEN,URINE NORMAL MG/DL (0.0-1.0)
[2017-11-30] MEDS: Morphine Sulfate 4mg/ml Inj IVP PRN ×4 (05:26→22:51)
[2017-11-30] MEDS: Solu-MEDROL 125mg Inj IV SCH ×4 (06:00→21:43)
[2017-11-30] MEDS: Verapamil 80mg tab ORAL SCH ×3 (06:29→22:51)
[2017-11-30 08:00] VITALS: BP 130/70
[2017-11-30] MEDS: Allopurinol 100mg Tab ORAL SCH (08:46)
[2017-11-30] MEDS: Indomethacin 25mg cap ORAL SCH ×2 (08:46→18:58)
[2017-11-30] MEDS: cloNIDine 0.2mg Tab ORAL SCH ×2 (08:46→18:32)
--- NOTE | 2017-11-30 11:21 | Pulmonology Progress Note ---
Assessment/Plan Problems: (1) Acute gout (2) Atrial fibrillation Assessment/Plan taper iv steroids lasix echo reviewed check electrolytes monitor heart rate cardio note appreciated Subjective ROS Limited/Unobtainable: No Interval Events: less pain in joints Allergies: Coded Allergies: No Known Allergies (Unverified , 08/21/17) Objective Last 24 Hour Vital Signs Date Time Temp Pulse Resp B/P (MAP) Pulse Ox O2 Delivery O2 Flow Rate FiO2 11/30/17 08:46 130/70 11/30/17 08:00 97.5 79 18 130/70 100 Room Air 97.5 11/30/17 06:29 86 144/99 11/30/17 04:00 86 11/30/17 04:00 97.4 79 19 144/99 100 Room Air 97.4 11/30/17 00:00 123 11/30/17 00:00 97.6 62 18 107/74 100 Room Air 97.6 11/29/17 22:13 89 136/73 11/29/17 20:00 132 11/29/17 20:00 97.3 89 20 136/73 100 Room Air 97.3 11/29/17 18:07 138/70 11/29/17 16:00 96.1 85 20 138/70 100 Room Air 96.1 11/29/17 15:29 91 11/29/17 14:26 81 127/84 11/29/17 12:00 97.3 81 20 127/84 100 Room Air 97.3 Intake and Output 11/29/17 11/30/17 19:00 07:00 Intake Total 1080 ml Balance 1080 ml Intake Oral 1080 ml # Voids 5 General Appearance: WD/WN HEENT: normocephalic, atraumatic Respiratory/Chest: chest wall non-tender, lungs clear Cardiovascular: normal peripheral pulses, normal rate Genitourinary: normal external genitalia Skin: no rash 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 Laboratory Tests 11/29/17 12:10: Uric Acid 7.4H, Total Creatine Kinase 26 11/30/17 04:00: Urine Color Pale yellow, Urine Appearance Clear, Urine pH 7, Urine Specific [place] 1.010, Urine Protein Negative, Urine Glucose (UA) Negative, Urine Ketones Negative, Urine Occult Blood Negative, Urine Nitrite Negative, Urine Bilirubin Negative, Urine Urobilinogen Normal, Urine Leukocyte Esterase Negative , Urine RBC 0-2H, Urine WBC 0, Urine Squamous Epithelial Cells Few, Urine Bacteria None, Urine Eosinophils None seen, Urine Random Sodium 118H, Urine Potassium Timed 15 Current Medications Medications (Trade) Dose Ordered Sig/Artie Route PRN Reason Start Time Stop Time Status Last Admin Dose Admin Allopurinol (Zyloprim) 100 mg DAILY ORAL 11/29/17 09:00 12/29/17 08:59 11/30/17 08:46 Clonidine HCl (Catapres tab) 0.2 mg BID ORAL 11/28/17 18:00 12/28/17 17:59 11/30/17 08:46 Furosemide (Lasix) 40 mg EVERY 8 HOURS IV 11/29/17 14:00 12/29/17 13:59 11/30/17 06:00 Indomethacin (Indocin) 50 mg BID ORAL 11/28/17 18:00 12/28/17 17:59 11/30/17 08:46 Methylprednisolone Sodium Succinate (Solu-MEDROL) 60 mg EVERY 6 HOURS IV 11/29/17 12:00 12/29/17 11:59 11/30/17 00:00 Morphine Sulfate (Morphine Sulfate) 4 mg Q4H PRN IVP For Pain 11/29/17 10:00 12/06/17 09:59 11/30/17 05:26 Rivaroxaban (Xarelto) 15 mg QPM ORAL 11/30/17 16:30 12/30/17 16:29 Verapamil HCl (Calan) 40 mg Q8HR ORAL 11/28/17 22:00 12/28/17 21:59 11/30/17 06:29 Abbey Espinoza MD November 30, 2017 11:21
[2017-11-30 12:00] VITALS: BP 132/69
--- NOTE | 2017-11-30 13:08 | Cardiology Report ---
APPROVED REPORT EXAM: Two-dimensional and M-mode echocardiogram with Doppler and color Doppler. M-Mode DIMENSIONS IVSd0.6 (0.7-1.1cm)Left Atrium (MM)4.6 (1.6-4.0cm) LVDd6.3 (3.5-5.6cm)Aortic Root4.3 (2.0-3.7cm) PWd1.3 (0.7-1.1cm)Aortic Cusp Exc.2.1 (1.5-2.0cm) IVSs1.9 cm LVDs5.6 (2.5-4.0cm) PWs1.5 cm Technically difficult study due to poor acoustical windows. Normal left ventricular chamber size, borderline normal systolic function and wall motion to extent visualized. Left ventricular ejection fraction estimated to be 50 %. Mild left ventricular hypertrophy by 2-D. No evidence of pericardial effusion Mild bi-atrial enlargement. Right ventricular chamber sizes is within normal limits. Mildly Focal aortic valve sclerosis with adequate cusp excursion. Mildly Thickened mitral valve leaflets with normal excursion. Mitral annulus and aortic root calcification. Pulmonic valve not well visualized. Normal tricuspid valve structure. IVC dilated at 2.0cm with physiologic collapse . A color flow and spectral Doppler study was performed and revealed: Mild aortic regurgitation. Moderate mitral regurgitation. Left ventricular diastolic function can not determine due to arrhythmia . Mild tricuspid regurgitation. Tricuspid systolic velocities suggests peak right ventricular systolic pressure of 31 mmHg,consistent with mild pulmonary hypertension. No Pulmonic regurgitation present.
[2017-11-30 13:12] LABS: ALANINE AMINOTRANSFERASE 48 U/L (12-78); ALBUMIN 2.8 G/DL (3.4-5.0); ALKALINE PHOSPHATASE 75 U/L (46-116); ANION GAP 7 mmol/L (5-15); ASPARTATE AMINO TRANSFERASE 15 U/L (15-37); BILIRUBIN,TOTAL 0.4 MG/DL (0.2-1.0); BLOOD UREA NITROGEN 21 mg/dL (7-18); CARBON DIOXIDE 24 MMOL/L (21-32); CHLORIDE 108 MMOL/L (98-107); CREATININE 1.4 MG/DL (0.55-1.30); POTASSIUM 3.9 MMOL/L (3.5-5.1); SODIUM 139 MMOL/L (136-145)
--- NOTE | 2017-11-30 13:14 | Cardiology Progress Note ---
Assessment/Plan Assessment/Plan 1) Gout - indomethacin, colchicine, allopurinol, medrol, IV fluids, diet modification 2) Atrial fibrillation - verapamil 80 mg TID - rate controlled, no indication for cardioversion at this time, start anticoagulation for stroke prevention 3) Elevated BNP - check 2D echocardiogram, no evidence of acute heart failure Subjective Cardiovascular: Reports: no symptoms Respiratory: Reports: no symptoms Gastrointestinal/Abdominal: Reports: no symptoms Genitourinary: Reports: no symptoms Subjective Leg pain improving, uric acid trending down, no acute events or complaints Objective Last 24 Hour Vital Signs Date Time Temp Pulse Resp B/P (MAP) Pulse Ox O2 Delivery O2 Flow Rate FiO2 11/30/17 12:00 47 11/30/17 08:46 130/70 11/30/17 08:00 97.5 79 18 130/70 100 Room Air 97.5 11/30/17 08:00 65 11/30/17 06:29 86 144/99 11/30/17 04:00 86 11/30/17 04:00 97.4 79 19 144/99 100 Room Air 97.4 11/30/17 00:00 123 11/30/17 00:00 97.6 62 18 107/74 100 Room Air 97.6 11/29/17 22:13 89 136/73 11/29/17 20:00 132 11/29/17 20:00 97.3 89 20 136/73 100 Room Air 97.3 11/29/17 18:07 138/70 11/29/17 16:00 96.1 85 20 138/70 100 Room Air 96.1 11/29/17 15:29 91 11/29/17 14:26 81 127/84 General Appearance: WD/WN, no apparent distress EENT: PERRL/EOMI Neck: non-tender Rhythm: NSR Cardiovascular: normal peripheral pulses Respiratory/Chest: chest wall non-tender, lungs clear Abdomen: normal bowel sounds Extremities: normal range of motion 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 Intake and Output 11/29/17 11/30/17 19:00 07:00 Intake Total 1080 ml Balance 1080 ml Intake Oral 1080 ml # Voids 5 Laboratory Tests Test 11/30/17 04:00 11/30/17 12:20 Urine Color Pale yellow Urine Appearance Clear Urine pH 7 (4.5-8.0) Urine Specific [place] 1.010 (1.005-1.035) Urine Protein Negative (NEGATIVE) Urine Glucose (UA) Negative (NEGATIVE) Urine Ketones Negative (NEGATIVE) Urine Occult Blood Negative (NEGATIVE) Urine Nitrite Negative (NEGATIVE) Urine Bilirubin Negative (NEGATIVE) Urine Urobilinogen Normal MG/DL (0.0-1.0) Urine Leukocyte Esterase Negative (NEGATIVE) Urine RBC 0-2 /HPF (0 - 0) H Urine WBC 0 /HPF (0 - 0) Urine Squamous Epithelial Cells Few /LPF (NONE/OCC) Urine Bacteria None /HPF (NONE) Urine Eosinophils None seen Urine Random Sodium 118 mmol/L (20-110) H Urine Potassium Timed 15 mmol/L (12-62) Sodium Level Pending Potassium Level Pending Chloride Level Pending Carbon Dioxide Level Pending Blood Urea Nitrogen Pending Creatinine Pending Estimat Glomerular Filtration Rate Pending Glucose Level Pending Calcium Level Pending Total Bilirubin Pending Aspartate Amino Transf (AST/SGOT) Pending Alanine Aminotransferase (ALT/SGPT) Pending Alkaline Phosphatase Pending Total Protein Pending Albumin Pending Globulin Pending Tim Cardona M.D. November 30, 2017 13:14
[2017-11-30 16:00] VITALS: BP 151/86
--- NOTE | 2017-11-30 16:05 | Consultation ---
History of Present Illness General Date patient seen: November 29, 2017 Chief Complaint: Pain Present Illness HPI 67-year-old male patient presents to ER complaining of bilateral foot pain Allergies: Coded Allergies: No Known Allergies (Unverified , 08/21/17) Medication History Scheduled Allopurinol* (Allopurinol*), 100 MG ORAL DAILY, (Reported) Ascorbic Acid* (Vitamin C*), 500 MG ORAL TWICE A DAY Aspirin* (Aspirin*), 81 MG ORAL DAILY, (Reported) Clonidine HCl (Clonidine HCl), 0.2 MG PO BID, (Reported) Clonidine Hcl* (Catapres*), 0.2 MG ORAL Q8HR, (Reported) Colchicine (Colchicine), 0.6 MG PO BID Colchicine (Colchicine), 0.6 MG PO BID Colchicine (Colchicine), 0.6 MG PO BID Colchicine (Colchicine), 0.6 MG PO BID Furosemide* (Lasix*), 20 MG ORAL BID, (Reported) Indomethacin (Indomethacin), 50 MG PO BID, (Reported) Indomethacin (Indomethacin), 25 MG ORAL Q8H Meloxicam* (Mobic*), 7.5 MG ORAL DAILY Metoprolol Succinate* (Metoprolol Succinate*), 25 MG ORAL BID, (Reported) Pantoprazole* (Pantoprazole*), 40 MG ORAL DAILY, (Reported) Potassium Chloride (Potassium Chloride), 10 MEQ ORAL DAILY, (Reported) Potassium Gluconate (Potassium), 20 MG PO DAILY, (Reported) Prednisone* (Prednisone*), 40 MG ORAL DAILY Prednisone* (Prednisone*), 40 MG ORAL DAILY Prednisone* (Prednisone*), 40 MG ORAL DAILY Tramadol Hcl* (Ultram*), 50 MG ORAL DAILY, (Reported) Verapamil Hcl* (Calan*), 40 MG ORAL THREE TIMES A DAY, (Reported) Scheduled PRN Acetaminophen With Codeine (T#3) (Tylenol #3 Tab*), 1 TAB ORAL Q4H PRN for For Pain, (Reported) Tramadol Hcl* (Ultram*), 50 MG ORAL Q6H PRN for For Pain, (Reported) Miscellaneous Medications [Aspirin ], (Reported) Patient History Healthcare decision maker Resuscitation status Advanced Directive on File Physical Exam Last 24 Hour Vital Signs Date Time Temp Pulse Resp B/P (MAP) Pulse Ox O2 Delivery O2 Flow Rate FiO2 11/30/17 14:30 97.5 5/29/18 14:00 97.5 11/30/17 13:58 47 130/70 11/30/17 12:00 97.5 60 18 132/69 95 Room Air 97.5 11/30/17 12:00 47 11/30/17 08:46 130/70 11/30/17 08:00 97.5 79 18 130/70 100 Room Air 97.5 11/30/17 08:00 65 11/30/17 06:29 86 144/99 11/30/17 04:00 86 11/30/17 04:00 97.4 79 19 144/99 100 Room Air 97.4 11/30/17 00:00 123 11/30/17 00:00 97.6 62 18 107/74 100 Room Air 97.6 11/29/17 22:13 89 136/73 11/29/17 20:00 132 11/29/17 20:00 97.3 89 20 136/73 100 Room Air 97.3 11/29/17 18:07 138/70 Intake and Output 11/29/17 11/30/17 19:00 07:00 Intake Total 1080 ml Balance 1080 ml Intake Oral 1080 ml # Voids 5 Laboratory Tests Test 11/30/17 04:00 11/30/17 12:20 Urine Color Pale yellow Urine Appearance Clear Urine pH 7 (4.5-8.0) Urine Specific [place] 1.010 (1.005-1.035) Urine Protein Negative (NEGATIVE) Urine Glucose (UA) Negative (NEGATIVE) Urine Ketones Negative (NEGATIVE) Urine Occult Blood Negative (NEGATIVE) Urine Nitrite Negative (NEGATIVE) Urine Bilirubin Negative (NEGATIVE) Urine Urobilinogen Normal MG/DL (0.0-1.0) Urine Leukocyte Esterase Negative (NEGATIVE) Urine RBC 0-2 /HPF (0 - 0) H Urine WBC 0 /HPF (0 - 0) Urine Squamous Epithelial Cells Few /LPF (NONE/OCC) Urine Bacteria None /HPF (NONE) Urine Eosinophils None seen Urine Random Sodium 118 mmol/L (20-110) H Urine Potassium Timed 15 mmol/L (12-62) Sodium Level 139 MMOL/L (136-145) Potassium Level 3.9 MMOL/L (3.5-5.1) Chloride Level 108 MMOL/L (98-107) H Carbon Dioxide Level 24 MMOL/L (21-32) Anion Gap 7 mmol/L (5-15) Blood Urea Nitrogen 21 mg/dL (7-18) H Creatinine 1.4 MG/DL (0.55-1.30) H Estimat Glomerular Filtration Rate > 60 mL/min (>60) Glucose Level 90 MG/DL (74-106) Calcium Level 10.0 MG/DL (8.5-10.1) Total Bilirubin 0.4 MG/DL (0.2-1.0) Aspartate Amino Transf (AST/SGOT) 15 U/L (15-37) Alanine Aminotransferase (ALT/SGPT) 48 U/L (12-78) Alkaline Phosphatase 75 U/L (46-116) Total Protein 5.6 G/DL (6.4-8.2) L Albumin 2.8 G/DL (3.4-5.0) L Globulin 2.8 g/dL Albumin/Globulin Ratio 1.0 (1.0-2.7) Height (Feet): 5 Height (Inches): 9.00 Weight (Pounds): 230 Medications Current Medications Medications (Trade) Dose Ordered Sig/Artie Route PRN Reason Start Time Stop Time Status Last Admin Dose Admin Allopurinol (Zyloprim) 100 mg DAILY ORAL 11/29/17 09:00 12/29/17 08:59 11/30/17 08:46 Clonidine HCl (Catapres tab) 0.2 mg BID ORAL 11/28/17 18:00 12/28/17 17:59 11/30/17 08:46 Furosemide (Lasix) 40 mg EVERY 8 HOURS IV 11/29/17 14:00 12/29/17 13:59 11/30/17 13:58 Indomethacin (Indocin) 50 mg BID ORAL 11/28/17 18:00 12/28/17 17:59 11/30/17 08:46 Methylprednisolone Sodium Succinate (Solu-MEDROL) 60 mg EVERY 12 HOURS IV 11/30/17 21:00 12/29/17 11:59 Morphine Sulfate (Morphine Sulfate) 4 mg Q4H PRN IVP For Pain 11/29/17 10:00 12/06/17 09:59 11/30/17 14:00 Rivaroxaban (Xarelto) 15 mg QPM ORAL 11/30/17 16:30 12/30/17 16:29 Verapamil HCl (Calan) 40 mg Q8HR ORAL 11/28/17 22:00 12/28/17 21:59 11/30/17 13:58 Tde Resendiz M.D. November 30, 2017 16:05
[2017-11-30] MEDS ORDERED: Xarelto 15mg tab ORAL SCH (16:30)
[2017-11-30 20:00] VITALS: BP 147/82
[2017-11-30] MEDS ORDERED: Solu-MEDROL 125mg Inj IV SCH (21:00)
[2017-11-30] MEDS ORDERED: Docusate 100mg cap ORAL SCH ×2 (22:30→22:45)
[2017-11-30] MEDS: Docusate 100mg cap ORAL SCH (22:51)
[2017-12-01] VITALS: BP_SYST 100; BP_SYST 159; BP_DIAS 69; BP_DIAS 77
[2017-12-01] MEDS: Morphine Sulfate 4mg/ml Inj IVP PRN ×5 (03:20→21:40)
[2017-12-01 04:00] VITALS: BP 146/91
[2017-12-01] MEDS: Verapamil 80mg tab ORAL SCH ×3 (05:16→21:38)
[2017-12-01 08:00] VITALS: BP 121/87
[2017-12-01 08:03] LABS: BASOPHILS % (AUTO) 1.1 % (0.0-2.0); EOSINOPHILS % (AUTO) 3.6 % (0.0-3.0); HEMATOCRIT 41.2 % (42.0-52.0); HEMOGLOBIN 13.6 G/DL (14.2-18.0); LYMPHOCYTES % (AUTO) 27.9 % (20.0-45.0); MEAN CORPUSCULAR VOLUME 92 FL (80-99); MONOCYTES % (AUTO) 11.9 % (1.0-10.0); NEUTROPHILS % (AUTO) 55.5 % (45.0-75.0); PLATELET COUNT 178 K/UL (150-450); RED BLOOD COUNT 4.46 M/UL (4.70-6.10); RED CELL DISTRIBUTION WIDTH 12.2 % (11.6-14.8); WHITE BLOOD COUNT 6.6 K/UL (4.8-10.8)
[2017-12-01] MEDS: cloNIDine 0.2mg Tab ORAL SCH ×2 (08:27→17:20)
[2017-12-01] MEDS: Docusate 100mg cap ORAL SCH ×3 (08:27→17:20)
[2017-12-01] MEDS: Allopurinol 100mg Tab ORAL SCH (08:27)
[2017-12-01] MEDS: Solu-MEDROL 125mg Inj IV SCH ×2 (08:27→21:39)
[2017-12-01] MEDS: Indomethacin 25mg cap ORAL SCH ×2 (08:27→17:19)
[2017-12-01 08:28] LABS: ALANINE AMINOTRANSFERASE 40 U/L (12-78); ALBUMIN 2.9 G/DL (3.4-5.0); ALKALINE PHOSPHATASE 75 U/L (46-116); ANION GAP 10 mmol/L (5-15); ASPARTATE AMINO TRANSFERASE 12 U/L (15-37); BILIRUBIN,TOTAL 0.4 MG/DL (0.2-1.0); BLOOD UREA NITROGEN 24 mg/dL (7-18); CALCIUM 9.6 MG/DL (8.5-10.1); CARBON DIOXIDE 23 MMOL/L (21-32); CHLORIDE 105 MMOL/L (98-107); CREATININE 1.4 MG/DL (0.55-1.30); POTASSIUM 3.6 MMOL/L (3.5-5.1); SODIUM 138 MMOL/L (136-145)
--- NOTE | 2017-12-01 10:27 | Cardiology Progress Note ---
Assessment/Plan Assessment/Plan 1) Gout - indomethacin, colchicine, allopurinol, medrol, IV fluids, diet modification 2) Atrial fibrillation - verapamil 80 mg TID - rate controlled, no indication for cardioversion at this time, continue xarelto for stroke prevention 3) Elevated BNP - check 2D echocardiogram, no evidence of acute heart failure 4) Dispo planning Subjective Cardiovascular: Reports: no symptoms Respiratory: Reports: no symptoms Gastrointestinal/Abdominal: Reports: no symptoms Genitourinary: Reports: no symptoms Subjective Leg pain improving, uric acid trending down, no acute events or complaints Objective Last 24 Hour Vital Signs Date Time Temp Pulse Resp B/P (MAP) Pulse Ox O2 Delivery O2 Flow Rate FiO2 12/01/17 08:27 121/87 12/01/17 08:00 97.2 57 18 121/87 100 97.2 12/01/17 05:16 61 146/91 12/01/17 04:00 97.5 61 20 146/91 100 97.5 12/01/17 00:00 98.1 73 19 100/69 100 98.1 11/30/17 22:51 67 147/82 11/30/17 20:00 97.8 67 20 147/82 100 97.8 11/30/17 18:32 131/68 11/30/17 16:00 97.6 64 20 151/86 100 Room Air 97.6 11/30/17 14:30 97.5 11/30/17 14:00 97.5 11/30/17 13:58 47 130/70 11/30/17 12:00 97.5 60 18 132/69 95 Room Air 97.5 11/30/17 12:00 47 General Appearance: WD/WN, no apparent distress EENT: PERRL/EOMI, normal ENT inspection Neck: non-tender Rhythm: NSR Cardiovascular: normal peripheral pulses, normal rate, regular rhythm Respiratory/Chest: chest wall non-tender, lungs clear Abdomen: normal bowel sounds, non tender Extremities: normal range of motion 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 Intake and Output 11/30/17 12/01/17 19:00 07:00 Intake Total 1360 ml Balance 1360 ml Intake Oral 1360 ml # Voids 6 6 Laboratory Tests Test 11/30/17 12:20 12/01/17 06:14 Sodium Level 139 MMOL/L (136-145) 138 MMOL/L (136-145) Potassium Level 3.9 MMOL/L (3.5-5.1) 3.6 MMOL/L (3.5-5.1) Chloride Level 108 MMOL/L (98-107) H 105 MMOL/L (98-107) Carbon Dioxide Level 24 MMOL/L (21-32) 23 MMOL/L (21-32) Anion Gap 7 mmol/L (5-15) 10 mmol/L (5-15) Blood Urea Nitrogen 21 mg/dL (7-18) H 24 mg/dL (7-18) H Creatinine 1.4 MG/DL (0.55-1.30) H 1.4 MG/DL (0.55-1.30) H Estimat Glomerular Filtration Rate > 60 mL/min (>60) > 60 mL/min (>60) Glucose Level 90 MG/DL (74-106) 88 MG/DL (74-106) Calcium Level 10.0 MG/DL (8.5-10.1) 9.6 MG/DL (8.5-10.1) Total Bilirubin 0.4 MG/DL (0.2-1.0) 0.4 MG/DL (0.2-1.0) Aspartate Amino Transf (AST/SGOT) 15 U/L (15-37) 12 U/L (15-37) L Alanine Aminotransferase (ALT/SGPT) 48 U/L (12-78) 40 U/L (12-78) Alkaline Phosphatase 75 U/L (46-116) 75 U/L (46-116) Total Protein 5.6 G/DL (6.4-8.2) L 5.9 G/DL (6.4-8.2) L Albumin 2.8 G/DL (3.4-5.0) L 2.9 G/DL (3.4-5.0) L Globulin 2.8 g/dL 3.0 g/dL Albumin/Globulin Ratio 1.0 (1.0-2.7) 1.0 (1.0-2.7) White Blood Count 6.6 K/UL (4.8-10.8) Red Blood Count 4.46 M/UL (4.70-6.10) L Hemoglobin 13.6 G/DL (14.2-18.0) L Hematocrit 41.2 % (42.0-52.0) L Mean Corpuscular Volume 92 FL (80-99) Mean Corpuscular Hemoglobin 30.6 PG (27.0-31.0) Mean Corpuscular Hemoglobin Concent 33.1 G/DL (32.0-36.0) Red Cell Distribution Width 12.2 % (11.6-14.8) Platelet Count 178 K/UL (150-450) Mean Platelet Volume 8.4 FL (6.5-10.1) Neutrophils (%) (Auto) 55.5 % (45.0-75.0) Lymphocytes (%) (Auto) 27.9 % (20.0-45.0) Monocytes (%) (Auto) 11.9 % (1.0-10.0) H Eosinophils (%) (Auto) 3.6 % (0.0-3.0) H Basophils (%) (Auto) 1.1 % (0.0-2.0) Pro-B-Type Natriuretic Peptide 524 pg/mL (0-125) H Tim Cardona M.D. December 01, 2017 10:27
[2017-12-01] MEDS ORDERED: DOCUSATE SODIU100 MG ORAL (11:11)
[2017-12-01 12:00] VITALS: BP 122/87
--- NOTE | 2017-12-01 14:03 | Pulmonology Progress Note ---
Assessment/Plan Problems: (1) Acute gout (2) Atrial fibrillation Assessment/Plan doing better taper iv steroids lasix echo reviewed check electrolytes monitor heart rate cardio note appreciated dc home in am Subjective ROS Limited/Unobtainable: No Constitutional: Reports: no symptoms HEENT: Repors: no symptoms Respiratory: Reports: no symptoms Allergies: Coded Allergies: No Known Allergies (Unverified , 08/21/17) Objective Last 24 Hour Vital Signs Date Time Temp Pulse Resp B/P (MAP) Pulse Ox O2 Delivery O2 Flow Rate FiO2 12/01/17 13:13 81 122/87 12/01/17 12:00 97.5 81 19 122/87 100 97.5 12/01/17 08:27 121/87 12/01/17 08:00 97.2 57 18 121/87 100 97.2 12/01/17 05:16 61 146/91 12/01/17 04:00 97.5 61 20 146/91 100 97.5 12/01/17 00:00 98.1 73 19 100/69 100 98.1 11/30/17 22:51 67 147/82 11/30/17 20:00 97.8 67 20 147/82 100 97.8 11/30/17 18:32 131/68 11/30/17 16:00 97.6 64 20 151/86 100 Room Air 97.6 11/30/17 14:30 97.5 Intake and Output 11/30/17 12/01/17 19:00 07:00 Intake Total 1360 ml Balance 1360 ml Intake Oral 1360 ml # Voids 6 6 General Appearance: WD/WN HEENT: normocephalic, atraumatic Respiratory/Chest: lungs clear, normal breath sounds Cardiovascular: normal peripheral pulses, normal rate Abdomen: normal bowel sounds, soft, non tender Genitourinary: normal external genitalia Extremities: no clubbing Skin: no lesions Laboratory Tests 12/01/17 06:14: White Blood Count 6.6, Red Blood Count 4.46L, Hemoglobin 13.6L, Hematocrit 41.2L , Mean Corpuscular Volume 92, Mean Corpuscular Hemoglobin 30.6, Mean Corpuscular Hemoglobin Concent 33.1, Red Cell Distribution Width 12.2, Platelet Count 178, Mean Platelet Volume 8.4, Neutrophils (%) (Auto) 55.5, Lymphocytes (% ) (Auto) 27.9, Monocytes (%) (Auto) 11.9H, Eosinophils (%) (Auto) 3.6H, Basophils (%) (Auto) 1.1, Sodium Level 138, Potassium Level 3.6, Chloride Level 105, Carbon Dioxide Level 23, Anion Gap 10, Blood Urea Nitrogen 24H, Creatinine 1.4H, Estimat Glomerular Filtration Rate > 60, Glucose Level 88, Calcium Level 9.6, Total Bilirubin 0.4, Aspartate Amino Transf (AST/SGOT) 12L, Alanine Aminotransferase (ALT/SGPT) 40, Alkaline Phosphatase 75, Pro-B-Type Natriuretic Peptide 524H, Total Protein 5.9L, Albumin 2.9L, Globulin 3.0, Albumin/Globulin Ratio 1.0 Current Medications Medications (Trade) Dose Ordered Sig/Artie Route PRN Reason Start Time Stop Time Status Last Admin Dose Admin Allopurinol (Zyloprim) 100 mg DAILY ORAL 12/01/17 09:00 12/29/17 08:59 12/01/17 08:27 Clonidine HCl (Catapres tab) 0.2 mg BID ORAL 11/30/17 18:00 12/28/17 17:59 12/01/17 08:27 Docusate Sodium (Colace) 100 mg THREE TIMES A DAY ORAL 11/30/17 22:45 12/30/17 22:44 12/01/17 13:13 Furosemide (Lasix) 40 mg EVERY 8 HOURS IV 11/30/17 22:00 12/29/17 13:59 12/01/17 13:13 Indomethacin (Indocin) 50 mg BID ORAL 11/30/17 18:00 12/28/17 17:59 12/01/17 08:27 Methylprednisolone Sodium Succinate (Solu-MEDROL) 60 mg EVERY 12 HOURS IV 11/30/17 21:00 12/29/17 11:59 12/01/17 08:27 Morphine Sulfate (Morphine Sulfate) 4 mg Q4H PRN IVP For Pain 11/30/17 18:00 12/06/17 09:59 12/01/17 13:15 Rivaroxaban (Xarelto) 15 mg QPM ORAL 12/01/17 16:30 12/30/17 16:29 Verapamil HCl (Calan) 40 mg Q8HR ORAL 11/30/17 22:00 12/28/17 21:59 12/01/17 13:13 Abbey Espinoza MD December 01, 2017 14:03
[2017-12-01 16:00] VITALS: BP 120/77
[2017-12-01] MEDS ORDERED: Xarelto 15mg tab ORAL SCH (16:30)
[2017-12-01 20:00] VITALS: BP 148/87
--- NOTE | 2017-12-01 20:32 | Consultation ---
History of Present Illness General Date patient seen: December 01, 2017 Chief Complaint: Pain Present Illness Allergies: Coded Allergies: No Known Allergies (Unverified , 08/21/17) Medication History Scheduled Allopurinol* (Allopurinol*), 100 MG ORAL DAILY, (Reported) Ascorbic Acid* (Vitamin C*), 500 MG ORAL TWICE A DAY Aspirin* (Aspirin*), 81 MG ORAL DAILY, (Reported) Clonidine HCl (Clonidine HCl), 0.2 MG PO BID, (Reported) Clonidine Hcl* (Catapres*), 0.2 MG ORAL Q8HR, (Reported) Colchicine (Colchicine), 0.6 MG PO BID Colchicine (Colchicine), 0.6 MG PO BID Colchicine (Colchicine), 0.6 MG PO BID Colchicine (Colchicine), 0.6 MG PO BID Docusate Sodium* (Docusate Sodium*), 100 MG ORAL THREE TIMES A DAY, (Reported) Furosemide* (Lasix*), 20 MG ORAL BID, (Reported) Indomethacin (Indomethacin), 50 MG PO BID, (Reported) Indomethacin (Indomethacin), 25 MG ORAL Q8H Meloxicam* (Mobic*), 7.5 MG ORAL DAILY Metoprolol Succinate* (Metoprolol Succinate*), 25 MG ORAL BID, (Reported) Pantoprazole* (Pantoprazole*), 40 MG ORAL DAILY, (Reported) Potassium Chloride (Potassium Chloride), 10 MEQ ORAL DAILY, (Reported) Potassium Gluconate (Potassium), 20 MG PO DAILY, (Reported) Prednisone* (Prednisone*), 40 MG ORAL DAILY Prednisone* (Prednisone*), 40 MG ORAL DAILY Prednisone* (Prednisone*), 40 MG ORAL DAILY Tramadol Hcl* (Ultram*), 50 MG ORAL DAILY, (Reported) Verapamil Hcl* (Calan*), 40 MG ORAL THREE TIMES A DAY, (Reported) Scheduled PRN Acetaminophen With Codeine (T#3) (Tylenol #3 Tab*), 1 TAB ORAL Q4H PRN for For Pain, (Reported) Tramadol Hcl* (Ultram*), 50 MG ORAL Q6H PRN for For Pain, (Reported) Miscellaneous Medications [Aspirin ], (Reported) Patient History Healthcare decision maker Resuscitation status Advanced Directive on File Physical Exam Last 24 Hour Vital Signs Date Time Temp Pulse Resp B/P (MAP) Pulse Ox O2 Delivery O2 Flow Rate FiO2 12/01/17 17:20 120/77 12/01/17 16:00 97.4 77 20 120/77 100 97.4 12/01/17 13:13 81 122/87 12/01/17 12:00 97.5 81 19 122/87 100 97.5 12/01/17 08:27 121/87 12/01/17 08:00 97.2 57 18 121/87 100 97.2 12/01/17 05:16 61 146/91 12/01/17 04:00 97.5 61 20 146/91 100 97.5 12/01/17 00:00 98.1 73 19 100/69 100 98.1 11/30/17 22:51 67 147/82 Intake and Output 11/30/17 12/01/17 19:00 07:00 Intake Total 1360 ml Balance 1360 ml Intake Oral 1360 ml # Voids 6 6 Laboratory Tests Test 12/01/17 06:14 White Blood Count 6.6 K/UL (4.8-10.8) Red Blood Count 4.46 M/UL (4.70-6.10) L Hemoglobin 13.6 G/DL (14.2-18.0) L Hematocrit 41.2 % (42.0-52.0) L Mean Corpuscular Volume 92 FL (80-99) Mean Corpuscular Hemoglobin 30.6 PG (27.0-31.0) Mean Corpuscular Hemoglobin Concent 33.1 G/DL (32.0-36.0) Red Cell Distribution Width 12.2 % (11.6-14.8) Platelet Count 178 K/UL (150-450) Mean Platelet Volume 8.4 FL (6.5-10.1) Neutrophils (%) (Auto) 55.5 % (45.0-75.0) Lymphocytes (%) (Auto) 27.9 % (20.0-45.0) Monocytes (%) (Auto) 11.9 % (1.0-10.0) H Eosinophils (%) (Auto) 3.6 % (0.0-3.0) H Basophils (%) (Auto) 1.1 % (0.0-2.0) Sodium Level 138 MMOL/L (136-145) Potassium Level 3.6 MMOL/L (3.5-5.1) Chloride Level 105 MMOL/L (98-107) Carbon Dioxide Level 23 MMOL/L (21-32) Anion Gap 10 mmol/L (5-15) Blood Urea Nitrogen 24 mg/dL (7-18) H Creatinine 1.4 MG/DL (0.55-1.30) H Estimat Glomerular Filtration Rate > 60 mL/min (>60) Glucose Level 88 MG/DL (74-106) Calcium Level 9.6 MG/DL (8.5-10.1) Total Bilirubin 0.4 MG/DL (0.2-1.0) Aspartate Amino Transf (AST/SGOT) 12 U/L (15-37) L Alanine Aminotransferase (ALT/SGPT) 40 U/L (12-78) Alkaline Phosphatase 75 U/L (46-116) Pro-B-Type Natriuretic Peptide 524 pg/mL (0-125) H Total Protein 5.9 G/DL (6.4-8.2) L Albumin 2.9 G/DL (3.4-5.0) L Globulin 3.0 g/dL Albumin/Globulin Ratio 1.0 (1.0-2.7) Height (Feet): 5 Height (Inches): 9.00 Weight (Pounds): 220 Medications Current Medications Medications (Trade) Dose Ordered Sig/Artie Route PRN Reason Start Time Stop Time Status Last Admin Dose Admin Allopurinol (Zyloprim) 100 mg DAILY ORAL 12/01/17 09:00 12/29/17 08:59 12/01/17 08:27 Clonidine HCl (Catapres tab) 0.2 mg BID ORAL 11/30/17 18:00 12/28/17 17:59 12/01/17 17:20 Docusate Sodium (Colace) 100 mg THREE TIMES A DAY ORAL 11/30/17 22:45 12/30/17 22:44 12/01/17 17:20 Furosemide (Lasix) 40 mg EVERY 8 HOURS IV 11/30/17 22:00 12/29/17 13:59 12/01/17 13:13 Indomethacin (Indocin) 50 mg BID ORAL 11/30/17 18:00 12/28/17 17:59 12/01/17 17:19 Methylprednisolone Sodium Succinate (Solu-MEDROL) 60 mg EVERY 12 HOURS IV 11/30/17 21:00 6/27/18 11:59 12/01/17 08:27 Morphine Sulfate (Morphine Sulfate) 4 mg Q4H PRN IVP For Pain 11/30/17 18:00 12/06/17 09:59 12/01/17 17:20 Rivaroxaban (Xarelto) 15 mg QPM ORAL 12/01/17 16:30 12/30/17 16:29 12/01/17 16:48 Verapamil HCl (Calan) 40 mg Q8HR ORAL 11/30/17 22:00 12/28/17 21:59 12/01/17 13:13 Assessment/Plan Assessment/Plan (1) B/L foot pain (2) Gout Seen dictated. Bayron Bennett December 01, 2017 20:32
--- NOTE | 2017-12-01 22:55 | General Progress Note ---
Assessment/Plan Assessment/Plan anxiety d/o ativan prn Subjective Date patient seen: December 01, 2017 Neurologic/Psychiatric: Reports: anxiety, emotional problems Allergies: Coded Allergies: No Known Allergies (Unverified , 08/21/17) Subjective the pt c/o pain an has anxiety Objective Last 24 Hour Vital Signs Date Time Temp Pulse Resp B/P (MAP) Pulse Ox O2 Delivery O2 Flow Rate FiO2 12/01/17 21:38 65 148/87 12/01/17 20:00 98.2 65 19 148/87 99 Room Air 98.2 12/01/17 17:20 120/77 12/01/17 16:00 97.4 77 20 120/77 100 97.4 12/01/17 13:13 81 122/87 12/01/17 12:00 97.5 81 19 122/87 100 97.5 12/01/17 08:27 121/87 12/01/17 08:00 97.2 57 18 121/87 100 97.2 12/01/17 05:16 61 146/91 12/01/17 04:00 97.5 61 20 146/91 100 97.5 12/01/17 00:00 98.1 73 19 100/69 100 98.1 Intake and Output 11/30/17 12/01/17 19:00 07:00 Intake Total 1360 ml Balance 1360 ml Intake Oral 1360 ml # Voids 6 6 Laboratory Tests 12/01/17 06:14: White Blood Count 6.6, Red Blood Count 4.46L, Hemoglobin 13.6L, Hematocrit 41.2L , Mean Corpuscular Volume 92, Mean Corpuscular Hemoglobin 30.6, Mean Corpuscular Hemoglobin Concent 33.1, Red Cell Distribution Width 12.2, Platelet Count 178, Mean Platelet Volume 8.4, Neutrophils (%) (Auto) 55.5, Lymphocytes (% ) (Auto) 27.9, Monocytes (%) (Auto) 11.9H, Eosinophils (%) (Auto) 3.6H, Basophils (%) (Auto) 1.1, Sodium Level 138, Potassium Level 3.6, Chloride Level 105, Carbon Dioxide Level 23, Anion Gap 10, Blood Urea Nitrogen 24H, Creatinine 1.4H, Estimat Glomerular Filtration Rate > 60, Glucose Level 88, Calcium Level 9.6, Total Bilirubin 0.4, Aspartate Amino Transf (AST/SGOT) 12L, Alanine Aminotransferase (ALT/SGPT) 40, Alkaline Phosphatase 75, Pro-B-Type Natriuretic Peptide 524H, Total Protein 5.9L, Albumin 2.9L, Globulin 3.0, Albumin/Globulin Ratio 1.0 Height (Feet): 5 Height (Inches): 9.00 Weight (Pounds): 220 General Appearance: no apparent distress, alert Neurologic: oriented x 3, responsive, depressed affect Ted Resendiz M.D. December 01, 2017 22:55
[2017-12-02 04:00] VITALS: BP 122/78
--- NOTE | 2017-12-02 04:30 | Consultation ---
DATE OF CONSULTATION: 12/01/2017 PAIN MANAGEMENT CONSULTATION CONSULTING PHYSICIAN: Erika Mckeon M.D. REFERRING PHYSICIAN: Abbey Espinoza M.D. PHYSICIAN COTTON GROWER: Tevin Drew CHIEF COMPLAINT: Bilateral foot pain. HISTORY OF PRESENT ILLNESS: This is a 67-year-old male, who is being seen on the Med/Surg floor of [facility] for initial comprehensive pain management consultation. The patient was admitted under the care of Dr. Espinoza due to congestive heart failure exacerbation and gout flare-up, on morphine 4 mg IV every 4 hours as needed for severe pain. The patient has been having to tolerate his pain while here in the hospital. He is receiving colchicine and allopurinol as well, as an outpatient. At this time, he is comfortable. We were consulted so that the patient would have adequate pain control while here in the hospital. I discussed with the patient in depth about starting the patient on Neurontin. The patient does not want to take that medication at this time and would like to take his morphine as needed. The patient reports that he does not want to take any medication as an outpatient. He does not want a prescription and he is comfortable with taking his gout medication and he has no other complaints. PAST MEDICAL HISTORY: Gout, AFib, hypertension, and CHF. MEDICATIONS: Allopurinol, vitamin C, aspirin, Catapres, colchicine, Lasix, indomethacin, metoprolol, pantoprazole, potassium, prednisone, Ultram, and Tylenol No. 3. ALLERGIES: No known drug allergies. SOCIAL HISTORY: Denies smoking tobacco, drinking alcohol, or IV drug abuse. REVIEW OF SYSTEMS: Denies rash, fever, chills, sweating, dizziness, drowsiness, sore throat, or change in weight. No shortness of breath or chest pain. No nausea, vomiting, diarrhea, or blood in the stool or urine. No bowel or bladder incontinence. He complains of bilateral foot pain. PHYSICAL EXAMINATION: GENERAL: Alert, awake, and oriented x3. VITAL SIGNS: Blood pressure 120/77, heart rate 77, oxygen saturation 100%, respiratory rate 20, and temperature is 97.4 degrees Fahrenheit. HEENT: PERRLA. NECK: Range of motion is full in all directions. No tenderness to paracervical muscles. No lymphadenopathy. LUNGS: Clear. HEART: Regular. ABDOMEN: Benign. BACK: Range of motion is full in flexion and extension. EXTREMITIES: Upper extremity range of motion is full in all directions. No cyanosis. No clubbing. No edema. Sensory is intact. Reflexes are not obtainable. No adenopathy. Lower extremity range of motion is decreased due to the patient's clinical condition. Motor is intact. No cyanosis. No clubbing. With edema noted. Sensory is intact. Reflexes are not obtainable. No adenopathy. ASSESSMENT AND PLAN: This is a 67-year-old male with gout and bilateral foot pain. The patient refused to take Neurontin and would like to take his morphine which will be continued. The patient does not need a prescription for discharge. The patient was discussed with Dr. Mckeon and Dr. Mckeon concurred. We will follow the patient. Thank you very much for the courtesy of this consultation. Erika Mckeon M.D. ATIF Drew DR: NETTIE JOB#: [id number] CC: [email or web address]
[2017-12-02] MEDS: Verapamil 80mg tab ORAL SCH (05:19)
[2017-12-02] MEDS: Morphine Sulfate 4mg/ml Inj IVP PRN ×2 (05:20→09:19)
[2017-12-02 08:00] VITALS: BP 149/78
[2017-12-02] MEDS: Docusate 100mg cap ORAL SCH (08:38)
[2017-12-02] MEDS: Indomethacin 25mg cap ORAL SCH (08:38)
[2017-12-02 08:39] VITALS: BP 143/97
[2017-12-02] MEDS: Allopurinol 100mg Tab ORAL SCH (08:39)
[2017-12-02] MEDS: cloNIDine 0.2mg Tab ORAL SCH (08:39)
[2017-12-02] MEDS: Solu-MEDROL 125mg Inj IV SCH (08:39)
--- NOTE | 2017-12-02 09:01 | General Progress Note ---
Assessment/Plan Assessment/Plan (1) B/L foot pain (2) Gout Patient to be continued on Morphine as needed. No Rx for opioids needed for discharge as per pt. D/w Dr. Mckeon and he concurred. Subjective Date patient seen: December 02, 2017 Time patient seen: 08:00 - am Allergies: Coded Allergies: No Known Allergies (Unverified , 08/21/17) Subjective REVIEW OF SYSTEMS: Denies rash, fever, chills, sweating, dizziness, drowsiness, sore throat, or change in weight. No shortness of breath or chest pain. No nausea, vomiting, diarrhea, or blood in the stool or urine. No bowel or bladder incontinence. He complains of bilateral foot pain. SUBJECTIVE: Patient is sitting up in bed no signs of pain or distress. Looking forward to be discharged as per senior energy analyst. Has had 5 doses of morphine in the last 24hrs. He was advised to f/u with his PMD when discharged. Objective Last 24 Hour Vital Signs Date Time Temp Pulse Resp B/P (MAP) Pulse Ox O2 Delivery O2 Flow Rate FiO2 12/02/17 08:39 143/97 12/02/17 08:00 98.0 77 18 149/78 100 Room Air 98.0 12/02/17 05:19 62 122/78 12/02/17 04:00 97.5 62 18 122/78 98 Room Air 97.5 12/01/17 21:38 65 148/87 12/01/17 20:00 98.2 65 19 148/87 99 Room Air 98.2 12/01/17 17:20 120/77 12/01/17 16:00 97.4 77 20 120/77 100 97.4 12/01/17 13:13 81 122/87 12/01/17 12:00 97.5 81 19 122/87 100 97.5 Intake and Output 12/01/17 12/02/17 19:00 07:00 Intake Total 1000 ml 750 ml Balance 1000 ml 750 ml Intake Oral 1000 ml 750 ml # Voids 3 6 Height (Feet): 5 Height (Inches): 9.00 Weight (Pounds): 220 Objective GENERAL: Alert, awake, and oriented x3. HEENT: PERRLA. NECK: Range of motion is full in all directions. No tenderness to paracervical muscles. No lymphadenopathy. LUNGS: Clear. HEART: Regular. ABDOMEN: Benign. BACK: Range of motion is full in flexion and extension. EXTREMITIES: Upper extremity range of motion is full in all directions. No cyanosis. No clubbing. No edema. Sensory is intact. Reflexes are not obtainable. No adenopathy. Lower extremity range of motion is decreased due to the patient's clinical condition. Motor is intact. No cyanosis. No clubbing. with edema noted. Sensory is intact. Reflexes are not obtainable. No adenopathy. Bayron Bennett December 02, 2017 09:01
--- NOTE | 2017-12-02 11:25 | Cardiology Progress Note ---
Assessment/Plan Assessment/Plan 1) Gout - indomethacin, colchicine, allopurinol, medrol, IV fluids, diet modification 2) Atrial fibrillation - verapamil 80 mg TID - rate controlled, no indication for cardioversion at this time, continue xarelto for stroke prevention 3) Elevated BNP - check 2D echocardiogram, no evidence of acute heart failure 4) Dispo planning - dischargehome today Subjective Cardiovascular: Reports: no symptoms Respiratory: Reports: no symptoms Gastrointestinal/Abdominal: Reports: no symptoms Genitourinary: Reports: no symptoms Subjective Leg pain improving, uric acid trending down, no acute events or complaints Objective Last 24 Hour Vital Signs Date Time Temp Pulse Resp B/P (MAP) Pulse Ox O2 Delivery O2 Flow Rate FiO2 12/02/17 08:39 143/97 12/02/17 08:00 98.0 77 18 149/78 100 Room Air 98.0 12/02/17 05:19 62 122/78 12/02/17 04:00 97.5 62 18 122/78 98 Room Air 97.5 12/01/17 21:38 65 148/87 12/01/17 20:00 98.2 65 19 148/87 99 Room Air 98.2 12/01/17 17:20 120/77 12/01/17 16:00 97.4 77 20 120/77 100 97.4 12/01/17 13:13 81 122/87 12/01/17 12:00 97.5 81 19 122/87 100 97.5 General Appearance: WD/WN EENT: PERRL/EOMI Neck: non-tender Rhythm: NSR Cardiovascular: normal peripheral pulses Respiratory/Chest: chest wall non-tender Abdomen: normal bowel sounds Extremities: normal range of motion Neurologic: director of 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 December 02, 2017 11:25
--- NOTE | 2017-12-02 13:58 | Pulmonology Progress Note ---
Assessment/Plan Problems: (1) Acute gout (2) Atrial fibrillation Assessment/Plan seen earlier today doing better taper iv steroids fast monitor heart rate cardio note appreciated dc home today Subjective ROS Limited/Unobtainable: No Constitutional: Reports: no symptoms HEENT: Repors: no symptoms Respiratory: Reports: no symptoms Allergies: Coded Allergies: No Known Allergies (Unverified , 08/21/17) Objective Last 24 Hour Vital Signs Date Time Temp Pulse Resp B/P (MAP) Pulse Ox O2 Delivery O2 Flow Rate FiO2 12/02/17 08:39 143/97 12/02/17 08:00 98.0 77 18 149/78 100 Room Air 98.0 12/02/17 05:19 62 122/78 12/02/17 04:00 97.5 62 18 122/78 98 Room Air 97.5 12/01/17 21:38 65 148/87 12/01/17 20:00 98.2 65 19 148/87 99 Room Air 98.2 12/01/17 17:20 120/77 12/01/17 16:00 97.4 77 20 120/77 100 97.4 Intake and Output 12/01/17 12/02/17 19:00 07:00 Intake Total 1000 ml 750 ml Balance 1000 ml 750 ml Intake Oral 1000 ml 750 ml # Voids 3 6 General Appearance: WD/WN HEENT: normocephalic, atraumatic Respiratory/Chest: chest wall non-tender, lungs clear Cardiovascular: normal peripheral pulses, normal rate Abdomen: normal bowel sounds, soft, non tender, no scars Extremities: no clubbing Skin: no rash Abbey Espinoza MD December 02, 2017 13:58
--- NOTE | 2017-12-02 17:36 | General Progress Note ---
Assessment/Plan Status: stable, progressing Assessment/Plan anxiety d/o ativan prn Subjective Date patient seen: December 02, 2017 Neurologic/Psychiatric: Reports: anxiety, depressed, emotional problems Allergies: Coded Allergies: No Known Allergies (Unverified , 08/21/17) Subjective the pt c/o pain an has anxiety Objective Last 24 Hour Vital Signs Date Time Temp Pulse Resp B/P (MAP) Pulse Ox O2 Delivery O2 Flow Rate FiO2 12/02/17 08:39 143/97 12/02/17 08:00 98.0 77 18 149/78 100 Room Air 98.0 12/02/17 05:19 62 122/78 12/02/17 04:00 97.5 62 18 122/78 98 Room Air 97.5 12/01/17 21:38 65 148/87 12/01/17 20:00 98.2 65 19 148/87 99 Room Air 98.2 Intake and Output 12/01/17 12/02/17 19:00 07:00 Intake Total 1000 ml 750 ml Balance 1000 ml 750 ml Intake Oral 1000 ml 750 ml # Voids 3 6 Height (Feet): 5 Height (Inches): 9.00 Weight (Pounds): 220 General Appearance: no apparent distress, alert Neurologic: oriented x 3, responsive, depressed affect Ted Resendiz M.D. December 02, 2017 17:36
--- NOTE | 2017-12-04 13:11 | Discharge Summary ---
Discharge Summary Discharge Summary _ DATE OF ADMISSION: 11/28/2017 DATE OF DISCHARGE: 12/02/2017 CONSULTANTS: Dr. Ted Mckeon BRIEF HOSPITAL COURSE: Patient is a 67-year-old male, with history of atrial fibrillation and gout presented to ED complaining of bilateral foot pain. He was seen at the ER earlier for similar symptoms and was instructed to return to ED if symptoms persisted. Patient reported that he called his primary care provider and was instructed to go back to ED. On evaluation at ED, vitals were stable. Patient had bilateral lower leg edema. BNP was noted to be elevated to 958. Uric acid was 8.0. Chest x-ray done showed no acute disease with mild cardiomegaly. He was then admitted for CHF exacerbation and acute gouty attack.. He was seen by senior db2 systems programmer. He was continued on verapamil 80 mg 3 times a day and was started on Xarelto, anticoagulation for stroke prevention. Echocardiogram done showed ejection fraction of 50%. He was given Lasix. He was started on IV steroids. He was placed indometacin and allopurinol daily. He was given pain management. He had anxiety disorder and was given Ativan. Steroids was eventually tapered. He had improvement in symptoms. He was then cleared for discharge home. FINAL DIAGNOSES: Acute on chronic diastolic heart failure, present on admission Acute gouty attack Anxiety disorder Atrial fibrillation Bilateral foot pain DISPOSITION: Patient was discharged home. DISCHARGE MEDICATIONS: Refer to Discharge Medication List. DISCHARGE INSTRUCTIONS: Follow up with PCP in a week. I have been assigned to dictate discharge summary on this account, and I was not involved in the patient's management. Cori Gustafson NP Dec 04, 2017 13:11
--- NOTE | 2017-12-05 14:37 | Cardiology Report ---
APPROVED REPORT EKG Measurement Heart [id number] Atrial fibrillation with premature ventricular or aberrantly conducted complexes Abnormal ECG
== END 2017-12-02 13:19 | disposition home or self-care (01) | DRG 553 ==
LOC: EMR 13:28 → EDBEDREQ 14:10 → 2E 14:33 → EDBEDREQ 14:42 → 4E 11-30 17:37
DX: M10.9 Gout, unspecified (principal); I50.33 Acute on chronic diastolic (congestive) heart failure; I48.91 Unspecified atrial fibrillation; I10 Essential (primary) hypertension; F41.9 Anxiety disorder, unspecified
CPT/HCPCS: 36415; 71045; 80053; 81001; 81003; 82550; 83880; 84133; 84300; 84550; 85007; 85025; 89050; 93005; 93306; 96372; 99284; 99285

== ENCOUNTER 2017-12-13 12:57 | Emergency (ER) | payer MEDICARE, MEDICAID ==
[~2017-12-13] VITALS: Ht 175.3 cm; Wt 104.3 kg
[~2017-12-13 12:57] MED LIST changes: +DOCUSATE SODIU100 MG ORAL
[2017-12-13] MEDS ORDERED: Ketorolac 60mg Inj IM ONE (13:15)
[2017-12-13 13:17] VITALS: BP 107/71
--- NOTE | 2017-12-13 14:07 | Emergency Room Report ---
History of Present Illness General Chief Complaint: Pain Source: Patient Present Illness HPI Patient states has a history of gout and arthritis. He states he's having a flare in both of his knees. He states that he gets this regularly. He denies fever or chills. He denies nausea or vomiting. She denies chest pain or shortness of breath. He denies abdominal pain. He has no other complaints. Allergies: Coded Allergies: No Known Allergies (Unverified , 08/21/17) Patient History Past Medical History: none, HTN, CAD, AFib, renal disease Social History: Denies: smoking, alcohol use, drug use Reviewed Nursing Documentation: PMH: Agreed; PSxH: Agreed Nursing Documentation-PMH Past Medical History: No History, Except For Hx Cardiac Problems: Yes - AFIBB Hx Hypertension: Yes Hx Cancer: No Hx Gastrointestinal Problems: No Review of Systems All Other Systems: negative except mentioned in HPI Physical Exam Vital Signs Date Time Temp Pulse Resp B/P (MAP) Pulse Ox O2 Delivery O2 Flow Rate FiO2 12/13/17 13:09 97.6 68 18 107/71 100 Room Air 97.5 Sp02 EP Interpretation: reviewed, normal General Appearance: no apparent distress, alert, GCS 15, non-toxic Head: normocephalic, atraumatic Eyes: bilateral eye normal inspection, bilateral eye PERRL ENT: hearing grossly normal, normal pharynx, no angioedema, normal voice Neck: full range of motion, supple/symm/no masses Respiratory: chest non-tender, lungs clear, normal breath sounds, no respiratory distress, no retraction, no accessory muscle use, speaking full sentences Cardiovascular #1: regular rate, rhythm, no edema Rectal: deferred Musculoskeletal: back normal, gait/station normal, normal range of motion, non- tender, swelling - BLE 2+edema Neurologic: alert, oriented x3, responsive, motor strength/tone normal, sensory intact, speech normal Psychiatric: judgement/insight normal, memory normal, mood/affect normal, no suicidal/homicidal ideation Skin: normal color, no rash, warm/dry, well hydrated Medical Decision Making Diagnostic Impression: Primary Impression: Peripheral edema Additional Impression: Arthritis ER Course This patient has a clinical presentation consistent with arthritis/martial skilled pain. There are no red flags on physical exam or history that would make me concerned for underlying fracture. Therefore, I do not feel that I need to obtain imaging studies. There is no evidence of compartment syndrome. There is no neurologic deficit. The patient was given Toradol IM. The patient was instructed on supportive home measures. No emergency medical condition was identified. The patient was given return precautions and followup instructions. Last Vital Signs Date Time Temp Pulse Resp B/P (MAP) Pulse Ox O2 Delivery O2 Flow Rate FiO2 12/13/17 13:23 97.5 12/13/17 13:17 18 107/71 100 Room Air 12/13/17 13:09 68 Status: improved Disposition: HOME, SELF-CARE Condition: Improved Silvina See DO Dec 13, 2017 14:07
[2017-12-13 14:18] VITALS: BP 107/71
== END 2017-12-13 14:20 | disposition home or self-care (01) ==
LOC: EMR 13:40
DX: R60.0 Localized edema (principal); M19.90 Unspecified osteoarthritis, unspecified site; I10 Essential (primary) hypertension; I48.91 Unspecified atrial fibrillation; I25.10 Atherosclerotic heart disease of native coronary artery without angina pectoris; N28.9 Disorder of kidney and ureter, unspecified
CPT/HCPCS: 96372; 99283

== ENCOUNTER 2017-12-29 07:08 | Emergency (ER) | payer MEDICARE, MEDICAID ==
[~2017-12-29] VITALS: Ht 177.8 cm; Wt 104.3 kg
[2017-12-29 07:11] VITALS: BP 119/82
--- NOTE | 2017-12-29 07:41 | Emergency Room Report ---
History of Present Illness General Chief Complaint: Pain Source: Patient Present Illness HPI Patient presents with increased right ankle pain. He states that this is due to his gout. He was in [place] and had to be on the streets. He states he can't tolerate allopurinol. He does have colchicine but gives him diarrhea. In addition to that the pain medication makes him constipated. He rates the pain 10/10, constant, burning. Radiates slightly to leg. The patient also has edema. He takes Lasix. He took 20 mg earlier this morning. Sometimes he increases the dose when the swelling is worse. The patient recently was admitted for chest pain. He has a history of atrial fibrillation. He states he's not had chest pain or dyspnea recently. The patient denies any fevers, chills, nausea, vomiting, diarrhea, dysuria. 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 His vision is unchanged in his left eye. He states he does not want to have labs done at this time. He has some mild renal insufficiency. Last time his uric acid was elevated. His rheumatoid factor and ARIELLE have both been negative in the past. 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 [employer] Reviewed Nursing Documentation: PMH: Agreed; PSxH: Agreed Nursing Documentation-PM Past Medical History: No History, Except For Hx Cardiac Problems: Yes - afib, chf Hx Hypertension: Yes Hx Cancer: No Hx Gastrointestinal Problems: No Review of Systems All Other Systems: negative except mentioned in HPI Physical Exam Vital Signs Date Time Temp Pulse Resp B/P (MAP) Pulse Ox O2 Delivery O2 Flow Rate FiO2 12/29/17 07:11 97.5 75 18 119/82 98 Nasal Cannula 97.5 Sp02 EP Interpretation: reviewed, normal General Appearance: well appearing, no apparent distress, GCS 15 Head: normocephalic Eyes: left eye other - alleged decreased vision; bilateral eye normal inspection, bilateral eye EOMI ENT: moist mucus membranes Neck: supple Respiratory: lungs clear, normal breath sounds Cardiovascular #1: regular rate, rhythm, edema - bilat ankles Cardiovascular #2: 2+ radial (R) Gastrointestinal: normal inspection, normal bowel sounds, non tender, no mass, non-distended Musculoskeletal: back normal, normal range of motion, swelling, tender - R ankle, ambulates with cane Neurologic: alert, oriented x3, grossly normal - with reported decreased vision R eye Psychiatric: mood/affect normal Skin: normal inspection, warm/dry Medical Decision Making Diagnostic Impression: Primary Impression: Gout attack Qualified Codes: M10.9 - Gout, unspecified ER Course Patient presents with ankle pain stating this is a gout attack. Differential includes gout, osteoarthritis, septic joint,'s strain, drug seeking behavior amongst others. There is no evidence of DVT at this time. Patient is specific in his request for treatment. Notified him that we have no Dilaudid at this time. Patient will be treated with colchicine and Percocet. Patient sleeping after percocet and colchicine. Patient is stable for outpatient observation and treatment. Last Vital Signs Date Time Temp Pulse Resp B/P (MAP) Pulse Ox O2 Delivery O2 Flow Rate FiO2 12/29/17 07:58 97.5 73 18 117/82 99 Room Air 97.5 Status: improved Disposition: HOME, SELF-CARE Condition: Improved Tim Gil M.D. Dec 29, 2017 07:41
[2017-12-29] MEDS ORDERED: oxyCODONE HCL/Acetaminophen 5/325mg ORAL ONE (07:45)
[2017-12-29 07:58] VITALS: BP 117/82
== END 2017-12-29 08:00 | disposition home or self-care (01) ==
LOC: EMR 07:54
DX: M10.9 Gout, unspecified (principal); I11.0 Hypertensive heart disease with heart failure; I50.9 Heart failure, unspecified; I48.91 Unspecified atrial fibrillation
CPT/HCPCS: 99283

== ENCOUNTER 2018-01-02 12:43 | Inpatient (IN) | payer MEDICARE, MEDICAID ==
[~2018-01-02] VITALS: Ht 177.8 cm; Wt 105.7 kg
[2018-01-02] MEDS ORDERED: Morphine Sulfate 4mg/ml Inj IVP ONE (13:15)
[2018-01-02] MEDS ORDERED: dilTIAZem HCl 25mg/5ml Inj IVP ONE (13:30)
[2018-01-02 14:04] LABS: BASOPHILS % (AUTO) 0.9 % (0.0-2.0); EOSINOPHILS % (AUTO) 1.5 % (0.0-3.0); HEMATOCRIT 41.9 % (42.0-52.0); HEMOGLOBIN 13.6 G/DL (14.2-18.0); LYMPHOCYTES % (AUTO) 14.2 % (20.0-45.0); MEAN CORPUSCULAR VOLUME 93 FL (80-99); MONOCYTES % (AUTO) 12.8 % (1.0-10.0); NEUTROPHILS % (AUTO) 70.7 % (45.0-75.0); PLATELET COUNT 204 K/UL (150-450); RED BLOOD COUNT 4.49 M/UL (4.70-6.10); RED CELL DISTRIBUTION WIDTH 12.5 % (11.6-14.8); WHITE BLOOD COUNT 9.8 K/UL (4.8-10.8)
[2018-01-02 14:06] VITALS: BP 136/89
--- NOTE | 2018-01-02 14:13 | Emergency Room Report ---
History of Present Illness General Chief Complaint: General Complaint Source: Patient, Medical Record Present Illness HPI Patient presents with dyspnea. This been going over the last 2 days and got worse. He denies any fever or productive cough. Occasionally the dyspnea is worse when he is laying down and other times when he is trying to walk. He is a history of atrial fibrillation. He was seen by me with exacerbation of his gouty pain. He then saw his own private doctor. I gave him Lasix at the time he came to see me in the emergency department as there was clear edema. He's was seen by his doctors in the last few days. They prescribed Naprosyn and tramadol. They told him to stop taking his blood thinner and did not give him more Lasix. The patient had a recent hospitalization 2 rule out acute myocardial infarction or acute coronary syndrome. His troponins were negative at that time. The patient denies any calf pain. This edema bilaterally more on the left-hand side. He has left ankle pain that he states is consistent with his gout. 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 [employer] Reviewed Nursing Documentation: PMH: Agreed; PSxH: Agreed Nursing Documentation-PMH Past Medical History: No History, Except For Hx Cardiac Problems: Yes - afib, chf Hx Hypertension: Yes Hx Cancer: No Hx Gastrointestinal Problems: No Review of Systems All Other Systems: negative except mentioned in HPI Physical Exam Vital Signs Date Time Temp Pulse Resp B/P (MAP) Pulse Ox O2 Delivery O2 Flow Rate FiO2 01/02/18 12:50 97.9 100 18 121/79 97 Room Air 97.9 Sp02 EP Interpretation: reviewed, normal General Appearance: mild distress, other - Tachypneic Head: normocephalic Eyes: bilateral eye normal inspection, bilateral eye PERRL ENT: moist mucus membranes Neck: supple Respiratory: lungs clear, normal breath sounds, respiratory distress - mild Cardiovascular #1: tachycardia, irregularly irregular, edema Cardiovascular #2: 2+ radial (R) Gastrointestinal: normal inspection, normal bowel sounds, non tender, no mass, non-distended Musculoskeletal: back normal, gait/station normal, normal range of motion, no calf tenderness, Mayda's Sign negative Neurologic: alert, oriented x3, grossly normal - except blindness L eye Psychiatric: anxious Skin: normal inspection, warm/dry Medical Decision Making Diagnostic Impression: Primary Impression: Atrial fibrillation with RVR Additional Impressions: Gout Qualified Codes: M10.9 - Gout, unspecified CHF (congestive heart failure) Qualified Codes: I50.43 - Acute on chronic combined systolic (congestive) and diastolic (congestive) heart failure Peripheral edema ER Course Patient presents with dyspnea with history of gout. Differential includes acute myocardial infarction, congestive failure, arrhythmia, PE amongst others. His exam is against pulmonary embolus although he does have bilateral edema. He'll be evaluated with EKG, chest x-ray and labs. Patient will receive analgesia. EKG with atrial fibrillation heart rate of 157 occasional PVCs with no ischemic changes. Diltiazem is given IV. Lasix given for peripheral edema (and min CHF on CXR). Labs significant for negative troponin, elevated uric acid, renal insufficiency. After diltiazem the heart rate is better. The patient needs cardiac observation , diuresis and repeated troponins. HR needs to be observed and controlled. Patient's pain is improved. Heart rate is decreased. Patient admitted to telemetry under the care of Dr. Espinoza. Last Vital Signs Date Time Temp Pulse Resp B/P (MAP) Pulse Ox O2 Delivery O2 Flow Rate FiO2 01/02/18 15:25 98.0 96 22 123/96 100 Room Air 98.0 EKG Diagnostic Results Rate: tachycardiac ST Segments: no acute changes Rhythm Strip Diag. Results EP Interpretation: yes Rhythm: other - A fib RVR with occasional PVCs and couplets Chest X-Ray Diagnostic Results Chest X-Ray Diagnostic Results : Chest X-Ray Ordered: Yes # of Views/Limited/Complete: 1 View Indication: Shortness of Breath EP Interpretation: Yes Interpretation: no pneumothorax, other - inc flow, cannot exclude effusions Impression: Other Electronically Signed by: Electronically signed by Tim Gil MD Last Vital Signs Date Time Temp Pulse Resp B/P (MAP) Pulse Ox O2 Delivery O2 Flow Rate FiO2 01/02/18 15:25 98.0 96 22 123/96 100 Room Air 98.0 Status: improved Disposition: ADMITTED INPATIENT Condition: Serious Referrals: [facility],REFERRING (PCP) Tim Gil M.D. Jan 02, 2018 14:13
[2018-01-02 14:15] LABS: ANION GAP 6 mmol/L (5-15); BLOOD UREA NITROGEN 21 mg/dL (7-18); CALCIUM 9.8 MG/DL (8.5-10.1); CARBON DIOXIDE 27 MMOL/L (21-32); CHLORIDE 109 MMOL/L (98-107); CREATININE 1.5 MG/DL (0.55-1.30); POTASSIUM 3.4 MMOL/L (3.5-5.1); SODIUM 142 MMOL/L (136-145)
[2018-01-02 14:26] LABS: ALANINE AMINOTRANSFERASE 47 U/L (12-78); ALBUMIN 2.8 G/DL (3.4-5.0); ALKALINE PHOSPHATASE 82 U/L (46-116); ASPARTATE AMINO TRANSFERASE 26 U/L (15-37); BILIRUBIN,TOTAL 0.5 MG/DL (0.2-1.0); CREATINE KINASE 79 U/L (26-308)
[2018-01-02 14:57] LABS: APPEARANCE,URINE CLEAR; BILIRUBIN, URINE NEGATIVE (NEGATIVE); COLOR,URINE PALE YELLOW; GLUCOSE, URINE (UA) NEGATIVE (NEGATIVE); KETONES,URINE NEGATIVE (NEGATIVE); LEUKOCYTE ESTERASE ,URINE NEGATIVE (NEGATIVE); NITRITE,URINE NEGATIVE (NEGATIVE); PH,URINE 7 (4.5-8.0); PROTEIN,URINE NEGATIVE (NEGATIVE); UROBILINOGEN,URINE NORMAL MG/DL (0.0-1.0)
[2018-01-02 15:23] VITALS: BP 123/96
[2018-01-02 15:55] VITALS: BP 130/88
[2018-01-02] MEDS ORDERED: Miralax 17gm pkt ORAL PRN (16:30)
[2018-01-02] MEDS ORDERED: Nitroglycerin Subl 0.4mg tab SL PRN (16:30)
[2018-01-02] MEDS ORDERED: Morphine Sulfate 2mg/ml Inj IVP PRN (16:30)
[2018-01-02] MEDS ORDERED: Albuterol/Ipratropium 3ml neb HHN PRN (16:30)
[2018-01-02] MEDS ORDERED: Metoclopramide 10mg/2ml Inj IVP PRN (16:30)
[2018-01-02] MEDS: Ascorbic Acid 500mg tab ORAL SCH (17:16)
[2018-01-02] MEDS ORDERED: Warfarin Sodium 5mg ORAL ONE (18:00)
[2018-01-02 20:00] VITALS: BP 135/96
[2018-01-02] MEDS ORDERED: Heparin 5000 units/ml inj SUBQ SCH (21:00)
[2018-01-02] MEDS ORDERED: Metoprolol Succinate XL 25mg tab ORAL SCH (21:00)
[2018-01-02] MEDS: Docusate 100mg cap ORAL SCH (21:16)
[2018-01-03] VITALS: BP 149/82
[2018-01-03] MEDS: cloNIDine 0.2mg Tab ORAL SCH ×2 (01:10→09:49)
[2018-01-03] MEDS: Morphine Sulfate 2mg/ml Inj IVP PRN ×3 (01:10→09:51)
[2018-01-03 04:00] VITALS: BP 122/79
[2018-01-03 08:00] VITALS: BP 107/62
[2018-01-03 08:46] LABS: ANION GAP 6 mmol/L (5-15); BLOOD UREA NITROGEN 17 mg/dL (7-18); CALCIUM 9.1 MG/DL (8.5-10.1); CARBON DIOXIDE 24 MMOL/L (21-32); CHLORIDE 110 MMOL/L (98-107); CHOLESTEROL 146 MG/DL (< 200); CREATININE 1.6 MG/DL (0.55-1.30); HDL CHOLESTEROL 41 MG/DL (40-60); POTASSIUM 3.7 MMOL/L (3.5-5.1); SODIUM 140 MMOL/L (136-145); TRIGLYCERIDES 122 MG/DL (30-150)
[2018-01-03] MEDS ORDERED: Allopurinol 100mg Tab ORAL SCH (09:00)
[2018-01-03] MEDS: Ascorbic Acid 500mg tab ORAL SCH (09:49)
[2018-01-03] MEDS: Docusate 100mg cap ORAL SCH (09:50)
--- NOTE | 2018-01-03 11:47 | History and Physical ---
History of Present Illness General Date patient seen: Jan 03, 2018 Reason for Hospitalization: General Complaint Present Illness HPI 67-year-old male with hx of afib, Gout presented to ER complaining of bilateral foot and leg swelling . He contributes the swelling and pain in his ankles to gout. He also c/o fo shortness of breath and difficulty breathing while lying on his back. No fever or chills were reported. Allergies: Coded Allergies: No Known Allergies (Unverified , 08/21/17) Medication History Scheduled Allopurinol* (Allopurinol*), 100 MG ORAL DAILY, (Reported) Ascorbic Acid* (Vitamin C*), 500 MG ORAL TWICE A DAY Aspirin* (Aspirin*), 81 MG ORAL DAILY, (Reported) Clonidine HCl (Clonidine HCl), 0.2 MG PO BID, (Reported) Clonidine Hcl* (Catapres*), 0.2 MG ORAL Q8HR, (Reported) Colchicine (Colchicine), 0.6 MG PO BID Colchicine (Colchicine), 0.6 MG PO BID Colchicine (Colchicine), 0.6 MG PO BID Colchicine (Colchicine), 0.6 MG PO BID Docusate Sodium* (Docusate Sodium*), 100 MG ORAL THREE TIMES A DAY, (Reported) Furosemide* (Lasix*), 20 MG ORAL TID, (Reported) Indomethacin (Indomethacin), 50 MG PO BID, (Reported) Indomethacin (Indomethacin), 25 MG ORAL Q8H Meloxicam* (Mobic*), 7.5 MG ORAL DAILY Metoprolol Succinate* (Metoprolol Succinate*), 25 MG ORAL BID, (Reported) Pantoprazole* (Pantoprazole*), 40 MG ORAL DAILY, (Reported) Potassium Chloride (Potassium Chloride), 20 MEQ ORAL DAILY, (Reported) Potassium Gluconate (Potassium), 20 MG PO DAILY, (Reported) Prednisone* (Prednisone*), 40 MG ORAL DAILY Prednisone* (Prednisone*), 40 MG ORAL DAILY Prednisone* (Prednisone*), 40 MG ORAL DAILY Tramadol Hcl* (Ultram*), 50 MG ORAL DAILY, (Reported) Verapamil Hcl* (Calan*), 40 MG ORAL THREE TIMES A DAY, (Reported) Scheduled PRN Acetaminophen With Codeine (T#3) (Tylenol #3 Tab*), 1 TAB ORAL Q4H PRN for For Pain, (Reported) Tramadol Hcl* (Ultram*), 50 MG ORAL Q6H PRN for For Pain, (Reported) Miscellaneous Medications [Aspirin ], (Reported) Patient History Healthcare decision maker Resuscitation status Full Code Advanced Directive on File No Past Medical/Surgical History Past Medical/Surgical History: (1) CHF (congestive heart failure) (2) Atrial fibrillation with RVR (3) Gout (4) Pain (5) Back pain Review of Systems All Other Systems: negative except mentioned in HPI Physical Exam General Appearance: WD/WN Lines, tubes and drains: peripheral HEENT: normocephalic, atraumatic Neck: non-tender, normal alignment Respiratory/Chest: crackles/rales Breasts: no masses Cardiovascular/Chest: normal peripheral pulses Abdomen: normal bowel sounds, non tender Genitourinary/Rectal: normal genital exam Extremities: normal range of motion, non-tender Skin Exam: normal pigmentation, other - pitting edema 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: 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 department intern 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 normal Last 24 Hour Vital Signs Date Time Temp Pulse Resp B/P (MAP) Pulse Ox O2 Delivery O2 Flow Rate FiO2 01/03/18 09:49 107/65 01/03/18 08:23 98 Nasal Cannula 2.0 28 01/03/18 08:23 Nasal Cannula 2.0 28 01/03/18 08:20 64 18 Nasal Cannula 2.0 28 01/03/18 08:00 98.1 69 20 107/62 100 Room Air 98.1 01/03/18 04:00 97.7 80 18 122/79 100 Room Air 97.7 01/03/18 04:00 111 01/03/18 01:10 145/79 01/03/18 00:00 87 01/03/18 00:00 97.7 120 20 149/82 99 Room Air 97.7 01/02/18 21:00 110 135/96 01/02/18 20:00 105 01/02/18 20:00 97.2 100 20 135/96 98 Room Air 97.2 01/02/18 16:00 134 01/02/18 15:55 98.1 64 20 130/88 98 Room Air 98.1 01/02/18 15:25 98.0 96 22 123/96 100 Room Air 98.0 01/02/18 15:23 98.0 96 22 123/96 100 Room Air 98.0 01/02/18 14:23 98.0 01/02/18 14:06 98.0 109 18 136/89 97 Room Air 98.0 01/02/18 13:57 97.9 01/02/18 13:54 117 136/89 01/02/18 12:50 97.9 100 18 121/79 97 Room Air 97.9 Intake and Output 01/02/18 01/03/18 19:00 07:00 Intake Total 480 ml 620 ml Balance 480 ml 620 ml Intake Oral 480 ml 620 ml # Voids 3 # Bowel Movements 1 Laboratory Tests Test 01/02/18 13:50 01/02/18 14:35 01/03/18 06:30 White Blood Count 9.8 K/UL (4.8-10.8) Red Blood Count 4.49 M/UL (4.70-6.10) L Hemoglobin 13.6 G/DL (14.2-18.0) L Hematocrit 41.9 % (42.0-52.0) L Mean Corpuscular Volume 93 FL (80-99) Mean Corpuscular Hemoglobin 30.3 PG (27.0-31.0) Mean Corpuscular Hemoglobin Concent 32.5 G/DL (32.0-36.0) Red Cell Distribution Width 12.5 % (11.6-14.8) Platelet Count 204 K/UL (150-450) Mean Platelet Volume 9.2 FL (6.5-10.1) Neutrophils (%) (Auto) 70.7 % (45.0-75.0) Lymphocytes (%) (Auto) 14.2 % (20.0-45.0) L Monocytes (%) (Auto) 12.8 % (1.0-10.0) H Eosinophils (%) (Auto) 1.5 % (0.0-3.0) Basophils (%) (Auto) 0.9 % (0.0-2.0) Prothrombin Time 10.4 SEC (9.30-11.50) 10.2 SEC (9.30-11.50) Prothromb Time International Ratio 1.0 (0.9-1.1) 1.0 (0.9-1.1) Activated Partial Thromboplast Time 28 SEC (23-33) Sodium Level 142 MMOL/L (136-145) 140 MMOL/L (136-145) Potassium Level 3.4 MMOL/L (3.5-5.1) L 3.7 MMOL/L (3.5-5.1) Chloride Level 109 MMOL/L (98-107) H 110 MMOL/L (98-107) H Carbon Dioxide Level 27 MMOL/L (21-32) 24 MMOL/L (21-32) Anion Gap 6 mmol/L (5-15) 6 mmol/L (5-15) Blood Urea Nitrogen 21 mg/dL (7-18) H 17 mg/dL (7-18) Creatinine 1.5 MG/DL (0.55-1.30) H 1.6 MG/DL (0.55-1.30) H Estimat Glomerular Filtration Rate 56.6 mL/min (>60) 52.5 mL/min (>60) Glucose Level 93 MG/DL (74-106) 87 MG/DL (74-106) Uric Acid 7.9 MG/DL (2.6-7.2) H Calcium Level 9.8 MG/DL (8.5-10.1) 9.1 MG/DL (8.5-10.1) Total Bilirubin 0.5 MG/DL (0.2-1.0) Aspartate Amino Transf (AST/SGOT) 26 U/L (15-37) Alanine Aminotransferase (ALT/SGPT) 47 U/L (12-78) Alkaline Phosphatase 82 U/L (46-116) Total Creatine Kinase 79 U/L (26-308) Troponin I 0.013 ng/mL (0.000-0.056) Pro-B-Type Natriuretic Peptide 1991 pg/mL (0-125) H 1350 pg/mL (0-125) H Total Protein 5.5 G/DL (6.4-8.2) L Albumin 2.8 G/DL (3.4-5.0) L Globulin 2.7 g/dL Albumin/Globulin Ratio 1.0 (1.0-2.7) Urine Color Pale yellow Urine Appearance Clear Urine pH 7 (4.5-8.0) Urine Specific [place] 1.010 (1.005-1.035) Urine Protein Negative (NEGATIVE) Urine Glucose (UA) Negative (NEGATIVE) Urine Ketones Negative (NEGATIVE) Urine Occult Blood Negative (NEGATIVE) Urine Nitrite Negative (NEGATIVE) Urine Bilirubin Negative (NEGATIVE) Urine Urobilinogen Normal MG/DL (0.0-1.0) Urine Leukocyte Esterase Negative (NEGATIVE) Urine Opiates Screen Negative (NEGATIVE) Urine Barbiturates Screen Negative (NEGATIVE) Phencyclidine (PCP) Screen Negative (NEGATIVE) Urine Amphetamines Screen Negative (NEGATIVE) Urine Benzodiazepines Screen Negative (NEGATIVE) Urine Cocaine Screen Negative (NEGATIVE) Urine Marijuana (THC) Screen Negative (NEGATIVE) Magnesium Level 2.2 MG/DL (1.8-2.4) Triglycerides Level 122 MG/DL (30-150) Cholesterol Level 146 MG/DL (< 200) LDL Cholesterol 98 mg/dL (<100) HDL Cholesterol 41 MG/DL (40-60) Cholesterol/HDL Ratio 3.6 (3.3-4.4) Thyroid Stimulating Hormone (TSH) 0.801 uiU/mL (0.358-3.740) Height (Feet): 5 Height (Inches): 10.00 Weight (Pounds): 233 Medications Current Medications Medications (Trade) Dose Ordered Sig/Artie Route PRN Reason Start Time Stop Time Status Last Admin Dose Admin Acetaminophen (Tylenol) 650 mg Q4H PRN ORAL Mild Pain (Pain Scale 1-3) 01/02/18 16:30 02/01/18 16:29 01/02/18 17:17 Albuterol/ Ipratropium (Albuterol/ Ipratropium) 3 ml Q4H PRN HHN Shortness of Breath 01/02/18 16:30 01/07/18 16:29 Allopurinol (Zyloprim) 100 mg DAILY ORAL 01/03/18 09:00 02/02/18 08:59 01/03/18 09:48 Ascorbic Acid (Vitamin C) 500 mg TWICE A DAY ORAL 01/02/18 18:00 02/01/18 17:59 01/03/18 09:49 Clonidine HCl (Catapres tab) 0.2 mg Q12HR ORAL 01/02/18 22:45 02/01/18 22:44 01/03/18 09:49 Dextrose (Dextrose 50%) 25 ml STAT PRN IV Hypoglycemia 01/02/18 16:30 02/01/18 16:29 Dextrose (Dextrose 50%) 50 ml STAT PRN IV Hypoglycemia 01/02/18 16:30 02/01/18 16:29 Docusate Sodium (Colace) 100 mg EVERY 12 HOURS ORAL 01/02/18 21:00 02/01/18 20:59 01/03/18 09:50 Famotidine (Pepcid) 20 mg BID ORAL 01/02/18 18:00 02/01/18 17:59 01/03/18 09:49 Furosemide (Lasix) 20 mg EVERY 12 HOURS IV 01/02/18 21:00 02/01/18 20:59 01/03/18 09:50 Meloxicam (Mobic) 7.5 mg DAILY ORAL 01/03/18 09:00 02/02/18 08:59 01/03/18 09:49 Metoclopramide HCl (Reglan) 10 mg Q6H PRN IVP Nausea & Vomiting 01/02/18 16:30 02/01/18 16:29 Morphine Sulfate (Morphine Sulfate) 2 mg Q4HR PRN IVP PAIN 4-10 01/02/18 22:45 01/09/18 16:29 01/03/18 09:51 Nitroglycerin (Ntg) 0.4 mg Q5M PRN SL Prn Chest Pain 01/02/18 16:30 02/01/18 16:29 Polyethylene Glycol (Miralax) 17 gm DAILYPRN PRN ORAL Constipation 01/02/18 16:30 02/01/18 16:29 Potassium Chloride (K-Dur) 20 meq DAILY ORAL 01/02/18 17:00 02/01/18 16:59 01/03/18 09:50 Temazepam (Restoril) 15 mg HSPRN PRN ORAL Insomnia 01/02/18 21:00 01/09/18 20:59 Warfarin Sodium (Coumadin per pharmacy) 1 ea DAILY PRN MISC Per rx protocol 01/02/18 16:30 02/01/18 16:29 Warfarin Sodium (Coumadin) 7.5 mg COUMADIN ORAL 01/03/18 17:00 01/03/18 18:00 Assessment/Plan Problem List: (1) CHF (congestive heart failure) ICD Codes: I50.9 - Heart failure, unspecified SNOMED: 00842875 Qualifiers: Qualified Codes: I50.43 - Acute on chronic combined systolic (congestive) and diastolic (congestive) heart failure (2) Atrial fibrillation ICD Codes: I48.91 - Unspecified atrial fibrillation SNOMED: 10257373 (3) Gout ICD Codes: M10.9 - Gout, unspecified SNOMED: 08678510 Qualifiers: Qualified Codes: M10.9 - Gout, unspecified (4) Peripheral edema ICD Codes: R60.9 - Edema, unspecified SNOMED: 690584434 Assessment/Plan diuretics check electrolytes and BNP check cxr in am cardiology to see. monitor BP control heart rate anticoagulation by Cardiology. Abbey Espinoza MD Jan 03, 2018 11:47
--- NOTE | 2018-01-03 11:54 | Diagnostic Imaging Report ---
Indication: Dyspnea Comparison: 11/28/2017 A single view chest radiograph was obtained. Findings: Mild interstitial edema demonstrated. Heart is enlarged. Aorta is mildly enlarged. Bones are osteopenic. IMPRESSION: CHF
[2018-01-03 12:00] VITALS: BP 117/77
--- NOTE | 2018-01-03 13:47 | Consultation ---
History of Present Illness General Date patient seen: Jan 03, 2018 Time patient seen: 12:56 Chief Complaint: General Complaint Present Illness HPI 67-year-old male with hx of afib, gout presented to ER complaining of bilateral foot and leg swelling . He has shortness of breath and states he ran out of his lasix. He contributes the swelling and pain in his ankles to gout. No chest pain, no fever, no chills. Allergies: Coded Allergies: No Known Allergies (Unverified , 08/21/17) Medication History Scheduled Allopurinol* (Allopurinol*), 100 MG ORAL DAILY, (Reported) Ascorbic Acid* (Vitamin C*), 500 MG ORAL TWICE A DAY Aspirin* (Aspirin*), 81 MG ORAL DAILY, (Reported) Clonidine HCl (Clonidine HCl), 0.2 MG PO BID, (Reported) Clonidine Hcl* (Catapres*), 0.2 MG ORAL Q8HR, (Reported) Colchicine (Colchicine), 0.6 MG PO BID Colchicine (Colchicine), 0.6 MG PO BID Colchicine (Colchicine), 0.6 MG PO BID Colchicine (Colchicine), 0.6 MG PO BID Docusate Sodium* (Docusate Sodium*), 100 MG ORAL THREE TIMES A DAY, (Reported) Furosemide* (Lasix*), 20 MG ORAL TID, (Reported) Indomethacin (Indomethacin), 50 MG PO BID, (Reported) Indomethacin (Indomethacin), 25 MG ORAL Q8H Meloxicam* (Mobic*), 7.5 MG ORAL DAILY Metoprolol Succinate* (Metoprolol Succinate*), 25 MG ORAL BID, (Reported) Pantoprazole* (Pantoprazole*), 40 MG ORAL DAILY, (Reported) Potassium Chloride (Potassium Chloride), 20 MEQ ORAL DAILY, (Reported) Potassium Gluconate (Potassium), 20 MG PO DAILY, (Reported) Prednisone* (Prednisone*), 40 MG ORAL DAILY Prednisone* (Prednisone*), 40 MG ORAL DAILY Prednisone* (Prednisone*), 40 MG ORAL DAILY Tramadol Hcl* (Ultram*), 50 MG ORAL DAILY, (Reported) Verapamil Hcl* (Calan*), 40 MG ORAL THREE TIMES A DAY, (Reported) Scheduled PRN Acetaminophen With Codeine (T#3) (Tylenol #3 Tab*), 1 TAB ORAL Q4H PRN for For Pain, (Reported) Tramadol Hcl* (Ultram*), 50 MG ORAL Q6H PRN for For Pain, (Reported) Miscellaneous Medications [Aspirin ], (Reported) Patient History Healthcare decision maker Resuscitation status Full Code Advanced Directive on File No Review of Systems Constitutional: Reports: no symptoms Eye: Reports: no symptoms ENT: Reports: no symptoms Respiratory: Reports: shortness of breath Cardiovascular: Reports: palpitations Gastrointestinal: Reports: no symptoms Genitourinary: Reports: no symptoms Musculoskeletal: Reports: no symptoms Skin: Reports: no symptoms Psychiatric: Reports: no symptoms Neurological: Reports: no symptoms Endocrine: Reports: no symptoms Hematologic/Lymphatic: Reports: no symptoms Physical Exam General Appearance: no apparent distress Lines, tubes and drains: peripheral HEENT: normocephalic Neck: non-tender Respiratory/Chest: chest wall non-tender Cardiovascular/Chest: normal peripheral pulses Abdomen: normal bowel sounds Extremities: normal range of motion Skin Exam: normal pigmentation Neurologic: compliance consultant 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 normal Last 24 Hour Vital Signs Date Time Temp Pulse Resp B/P (MAP) Pulse Ox O2 Delivery O2 Flow Rate FiO2 01/03/18 09:49 107/65 01/03/18 08:23 98 Nasal Cannula 2.0 28 01/03/18 08:23 Nasal Cannula 2.0 28 01/03/18 08:20 64 18 Nasal Cannula 2.0 28 01/03/18 08:00 98.1 69 20 107/62 100 Room Air 98.1 01/03/18 04:00 97.7 80 18 122/79 100 Room Air 97.7 01/03/18 04:00 111 01/03/18 01:10 145/79 01/03/18 00:00 87 01/03/18 00:00 97.7 120 20 149/82 99 Room Air 97.7 01/02/18 21:00 110 135/96 01/02/18 20:00 105 01/02/18 20:00 97.2 100 20 135/96 98 Room Air 97.2 01/02/18 16:00 134 01/02/18 15:55 98.1 64 20 130/88 98 Room Air 98.1 01/02/18 15:25 98.0 96 22 123/96 100 Room Air 98.0 01/02/18 15:23 98.0 96 22 123/96 100 Room Air 98.0 01/02/18 14:23 98.0 01/02/18 14:06 98.0 109 18 136/89 97 Room Air 98.0 01/02/18 13:57 97.9 01/02/18 13:54 117 136/89 Intake and Output 01/02/18 01/03/18 19:00 07:00 Intake Total 480 ml 620 ml Balance 480 ml 620 ml Intake Oral 480 ml 620 ml # Voids 3 # Bowel Movements 1 Laboratory Tests Test 01/02/18 13:50 01/02/18 14:35 01/03/18 06:30 White Blood Count 9.8 K/UL (4.8-10.8) Red Blood Count 4.49 M/UL (4.70-6.10) L Hemoglobin 13.6 G/DL (14.2-18.0) L Hematocrit 41.9 % (42.0-52.0) L Mean Corpuscular Volume 93 FL (80-99) Mean Corpuscular Hemoglobin 30.3 PG (27.0-31.0) Mean Corpuscular Hemoglobin Concent 32.5 G/DL (32.0-36.0) Red Cell Distribution Width 12.5 % (11.6-14.8) Platelet Count 204 K/UL (150-450) Mean Platelet Volume 9.2 FL (6.5-10.1) Neutrophils (%) (Auto) 70.7 % (45.0-75.0) Lymphocytes (%) (Auto) 14.2 % (20.0-45.0) L Monocytes (%) (Auto) 12.8 % (1.0-10.0) H Eosinophils (%) (Auto) 1.5 % (0.0-3.0) Basophils (%) (Auto) 0.9 % (0.0-2.0) Prothrombin Time 10.4 SEC (9.30-11.50) 10.2 SEC (9.30-11.50) Prothromb Time International Ratio 1.0 (0.9-1.1) 1.0 (0.9-1.1) Activated Partial Thromboplast Time 28 SEC (23-33) Sodium Level 142 MMOL/L (136-145) 140 MMOL/L (136-145) Potassium Level 3.4 MMOL/L (3.5-5.1) L 3.7 MMOL/L (3.5-5.1) Chloride Level 109 MMOL/L (98-107) H 110 MMOL/L (98-107) H Carbon Dioxide Level 27 MMOL/L (21-32) 24 MMOL/L (21-32) Anion Gap 6 mmol/L (5-15) 6 mmol/L (5-15) Blood Urea Nitrogen 21 mg/dL (7-18) H 17 mg/dL (7-18) Creatinine 1.5 MG/DL (0.55-1.30) H 1.6 MG/DL (0.55-1.30) H Estimat Glomerular Filtration Rate 56.6 mL/min (>60) 52.5 mL/min (>60) Glucose Level 93 MG/DL (74-106) 87 MG/DL (74-106) Uric Acid 7.9 MG/DL (2.6-7.2) H Calcium Level 9.8 MG/DL (8.5-10.1) 9.1 MG/DL (8.5-10.1) Total Bilirubin 0.5 MG/DL (0.2-1.0) Aspartate Amino Transf (AST/SGOT) 26 U/L (15-37) Alanine Aminotransferase (ALT/SGPT) 47 U/L (12-78) Alkaline Phosphatase 82 U/L (46-116) Total Creatine Kinase 79 U/L (26-308) Troponin I 0.013 ng/mL (0.000-0.056) Pro-B-Type Natriuretic Peptide 1991 pg/mL (0-125) H 1350 pg/mL (0-125) H Total Protein 5.5 G/DL (6.4-8.2) L Albumin 2.8 G/DL (3.4-5.0) L Globulin 2.7 g/dL Albumin/Globulin Ratio 1.0 (1.0-2.7) Urine Color Pale yellow Urine Appearance Clear Urine pH 7 (4.5-8.0) Urine Specific [place] 1.010 (1.005-1.035) Urine Protein Negative (NEGATIVE) Urine Glucose (UA) Negative (NEGATIVE) Urine Ketones Negative (NEGATIVE) Urine Occult Blood Negative (NEGATIVE) Urine Nitrite Negative (NEGATIVE) Urine Bilirubin Negative (NEGATIVE) Urine Urobilinogen Normal MG/DL (0.0-1.0) Urine Leukocyte Esterase Negative (NEGATIVE) Urine Opiates Screen Negative (NEGATIVE) Urine Barbiturates Screen Negative (NEGATIVE) Phencyclidine (PCP) Screen Negative (NEGATIVE) Urine Amphetamines Screen Negative (NEGATIVE) Urine Benzodiazepines Screen Negative (NEGATIVE) Urine Cocaine Screen Negative (NEGATIVE) Urine Marijuana (THC) Screen Negative (NEGATIVE) Magnesium Level 2.2 MG/DL (1.8-2.4) Triglycerides Level 122 MG/DL (30-150) Cholesterol Level 146 MG/DL (< 200) LDL Cholesterol 98 mg/dL (<100) HDL Cholesterol 41 MG/DL (40-60) Cholesterol/HDL Ratio 3.6 (3.3-4.4) Thyroid Stimulating Hormone (TSH) 0.801 uiU/mL (0.358-3.740) Height (Feet): 5 Height (Inches): 10.00 Weight (Pounds): 233 Medications Current Medications Medications (Trade) Dose Ordered Sig/Artie Route PRN Reason Start Time Stop Time Status Last Admin Dose Admin Acetaminophen (Tylenol) 650 mg Q4H PRN ORAL Mild Pain (Pain Scale 1-3) 01/02/18 16:30 02/01/18 16:29 01/02/18 17:17 Albuterol/ Ipratropium (Albuterol/ Ipratropium) 3 ml Q4H PRN HHN Shortness of Breath 01/02/18 16:30 01/07/18 16:29 Allopurinol (Zyloprim) 100 mg DAILY ORAL 01/03/18 09:00 02/02/18 08:59 01/03/18 09:48 Ascorbic Acid (Vitamin C) 500 mg TWICE A DAY ORAL 01/02/18 18:00 02/01/18 17:59 01/03/18 09:49 Clonidine HCl (Catapres tab) 0.2 mg Q12HR ORAL 01/02/18 22:45 02/01/18 22:44 01/03/18 09:49 Dextrose (Dextrose 50%) 25 ml STAT PRN IV Hypoglycemia 01/02/18 16:30 02/01/18 16:29 Dextrose (Dextrose 50%) 50 ml STAT PRN IV Hypoglycemia 01/02/18 16:30 02/01/18 16:29 Docusate Sodium (Colace) 100 mg EVERY 12 HOURS ORAL 01/02/18 21:00 02/01/18 20:59 01/03/18 09:50 Famotidine (Pepcid) 20 mg BID ORAL 01/02/18 18:00 02/01/18 17:59 01/03/18 09:49 Furosemide (Lasix) 20 mg EVERY 12 HOURS IV 01/02/18 21:00 02/01/18 20:59 01/03/18 09:50 Meloxicam (Mobic) 7.5 mg DAILY ORAL 01/03/18 09:00 02/02/18 08:59 01/03/18 09:49 Metoclopramide HCl (Reglan) 10 mg Q6H PRN IVP Nausea & Vomiting 01/02/18 16:30 02/01/18 16:29 Morphine Sulfate (Morphine Sulfate) 2 mg Q4HR PRN IVP PAIN 4-10 01/02/18 22:45 01/09/18 16:29 01/03/18 09:51 Nitroglycerin (Ntg) 0.4 mg Q5M PRN SL Prn Chest Pain 01/02/18 16:30 02/01/18 16:29 Polyethylene Glycol (Miralax) 17 gm DAILYPRN PRN ORAL Constipation 01/02/18 16:30 02/01/18 16:29 Potassium Chloride (K-Dur) 20 meq DAILY ORAL 01/02/18 17:00 02/01/18 16:59 01/03/18 09:50 Temazepam (Restoril) 15 mg HSPRN PRN ORAL Insomnia 01/02/18 21:00 01/09/18 20:59 Warfarin Sodium (Coumadin per pharmacy) 1 ea DAILY PRN MISC Per rx protocol 01/02/18 16:30 02/01/18 16:29 Warfarin Sodium (Coumadin) 7.5 mg COUMADIN ORAL 01/03/18 17:00 01/03/18 18:00 Assessment/Plan Status: stable Assessment/Plan AFIB Gout CHF Shortness of breath 1) Echocardiogram 2) Lasix 40 mg daily 3) Colchicine for gout 4) Metoprolol 25 BID for AFIB, rate controlled, no indication for cardioversion at this time 5) Daily weights, urine output, renal function 6) Xarelto for anticoagulation daily Tim Cardona M.D. Jan 03, 2018 13:47
[2018-01-03] MEDS ORDERED: Warfarin Sodium 7.5mg ORAL SCH (17:00)
--- NOTE | 2018-01-03 17:46 | Consultation ---
History of Present Illness General Date patient seen: Jan 03, 2018 Chief Complaint: General Complaint Present Illness HPI 67-year-old male with hx of afib, gout presented to ER complaining of bilateral foot and leg swelling. The pt has anxiety and mild depressive sxs. Allergies: Coded Allergies: No Known Allergies (Unverified , 08/21/17) Medication History Scheduled Allopurinol* (Allopurinol*), 100 MG ORAL DAILY, (Reported) Ascorbic Acid* (Vitamin C*), 500 MG ORAL TWICE A DAY Aspirin* (Aspirin*), 81 MG ORAL DAILY, (Reported) Clonidine HCl (Clonidine HCl), 0.2 MG PO BID, (Reported) Clonidine Hcl* (Catapres*), 0.2 MG ORAL Q8HR, (Reported) Colchicine (Colchicine), 0.6 MG PO BID Colchicine (Colchicine), 0.6 MG PO BID Colchicine (Colchicine), 0.6 MG PO BID Colchicine (Colchicine), 0.6 MG PO BID Docusate Sodium* (Docusate Sodium*), 100 MG ORAL THREE TIMES A DAY, (Reported) Furosemide* (Lasix*), 20 MG ORAL TID, (Reported) Indomethacin (Indomethacin), 50 MG PO BID, (Reported) Indomethacin (Indomethacin), 25 MG ORAL Q8H Meloxicam* (Mobic*), 7.5 MG ORAL DAILY Metoprolol Succinate* (Metoprolol Succinate*), 25 MG ORAL BID, (Reported) Pantoprazole* (Pantoprazole*), 40 MG ORAL DAILY, (Reported) Potassium Chloride (Potassium Chloride), 20 MEQ ORAL DAILY, (Reported) Potassium Gluconate (Potassium), 20 MG PO DAILY, (Reported) Prednisone* (Prednisone*), 40 MG ORAL DAILY Prednisone* (Prednisone*), 40 MG ORAL DAILY Prednisone* (Prednisone*), 40 MG ORAL DAILY Tramadol Hcl* (Ultram*), 50 MG ORAL DAILY, (Reported) Verapamil Hcl* (Calan*), 40 MG ORAL THREE TIMES A DAY, (Reported) Scheduled PRN Acetaminophen With Codeine (T#3) (Tylenol #3 Tab*), 1 TAB ORAL Q4H PRN for For Pain, (Reported) Tramadol Hcl* (Ultram*), 50 MG ORAL Q6H PRN for For Pain, (Reported) Miscellaneous Medications [Aspirin ], (Reported) Patient History Limited by: medical condition History Provided By: Patient, Medical Record, PMD Healthcare decision maker Resuscitation status Full Code Advanced Directive on File No Review of Systems Psychiatric: Reports: prior hx, anxiety, emotional problems Physical Exam General Appearance: no apparent distress, alert Neurologic: oriented x 3, responsive, depressed affect Last 24 Hour Vital Signs Date Time Temp Pulse Resp B/P (MAP) Pulse Ox O2 Delivery O2 Flow Rate FiO2 01/03/18 12:00 97.3 83 20 117/77 96 Room Air 97.3 01/03/18 09:49 107/65 01/03/18 08:23 98 Nasal Cannula 2.0 28 01/03/18 08:23 Nasal Cannula 2.0 28 01/03/18 08:20 64 18 Nasal Cannula 2.0 28 01/03/18 08:00 98.1 69 20 107/62 100 Room Air 98.1 01/03/18 04:00 97.7 80 18 122/79 100 Room Air 97.7 01/03/18 04:00 111 01/03/18 01:10 145/79 01/03/18 00:00 87 01/03/18 00:00 97.7 120 20 149/82 99 Room Air 97.7 01/02/18 21:00 110 135/96 01/02/18 20:00 105 01/02/18 20:00 97.2 100 20 135/96 98 Room Air 97.2 Intake and Output 01/02/18 01/03/18 19:00 07:00 Intake Total 480 ml 620 ml Balance 480 ml 620 ml Intake Oral 480 ml 620 ml # Voids 3 # Bowel Movements 1 Laboratory Tests Test 01/03/18 06:30 Prothrombin Time 10.2 SEC (9.30-11.50) Prothromb Time International Ratio 1.0 (0.9-1.1) Sodium Level 140 MMOL/L (136-145) Potassium Level 3.7 MMOL/L (3.5-5.1) Chloride Level 110 MMOL/L (98-107) H Carbon Dioxide Level 24 MMOL/L (21-32) Anion Gap 6 mmol/L (5-15) Blood Urea Nitrogen 17 mg/dL (7-18) Creatinine 1.6 MG/DL (0.55-1.30) H Estimat Glomerular Filtration Rate 52.5 mL/min (>60) Glucose Level 87 MG/DL (74-106) Calcium Level 9.1 MG/DL (8.5-10.1) Magnesium Level 2.2 MG/DL (1.8-2.4) Pro-B-Type Natriuretic Peptide 1350 pg/mL (0-125) H Triglycerides Level 122 MG/DL (30-150) Cholesterol Level 146 MG/DL (< 200) LDL Cholesterol 98 mg/dL (<100) HDL Cholesterol 41 MG/DL (40-60) Cholesterol/HDL Ratio 3.6 (3.3-4.4) Thyroid Stimulating Hormone (TSH) 0.801 uiU/mL (0.358-3.740) Height (Feet): 5 Height (Inches): 10.00 Weight (Pounds): 233 Assessment/Plan Assessment/Plan Anxiety d/o [place] jamison provided ro/Ted Moreno MD Jan 03, 2018 17:46
--- NOTE | 2018-01-04 12:00 | Discharge Summary ---
Discharge Summary Discharge Summary _ DATE OF ADMISSION: 01/02/2018 DATE OF DISCHARGE: 01/03/2018 REASON FOR ADMISSION: 67 years old male with past medical history significant for atrial fibrillation , congestive heart failure, presented to emergency room with complaint of shortness of breath and bilateral lower extremity edema . Patient denied chest pain ,no fever , no chills . Laboratory workup revealed negative troponin. ProBNP 1991 BUN 21 creatinine 1. Potassium 3.4. No leukocytosis, stable hemoglobin and hematocrit. Chest x-rays with evidence of CHF. EKG revealed atrial fibrillation with rapid ventricular response and occasional PVCs and couplets, heart rate 157. Patient received Lasix and Diltiazem IV in emergency department ; heart rate improved after Diltiazem. 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 Telemetry showed atrial fibrillation with controlled rate. Patient started on diuresis. C cardiorenal parameters and volumes were closely monitored , electrolytes corrected as needed . Echocardiogram was done on showed ejection fraction of 50% and right ventricular systolic pressure of 31, normal wall motion to the extent visualized. Rate was controlled with beta андрей, for anticoagulation patient was started the Coumadin to keep INR in therapeutic range 2-3. Consider Xarelto as outpatient for better compliance as per bagging machine operator recommendations. Supportive care provided .. Supplemental oxygen provided as needed to keep pulse oximetry above 92%, pulmonary toilet provided as needed. Pain was addressed and controlled . GI prophylaxis provided. Colchicine was continued. Shortness of breath resolved . Prior to discharge pulse oximetry stable on room air. Due to the rapid and unexpected improvement in patient condition , patient was discharged in one day. FINAL DIAGNOSES: Atrial fibrillation with rapid ventricular response, resolved Congestive heart failure Gout Peripheral edema DISCHARGE MEDICATIONS: See Medication Reconciliation list. DISCHARGE INSTRUCTIONS: Patient was discharged home. Reinforced compliance with medication regimen. Patient to follow up with the primary care provider in one week I have been assigned to dictate discharge summary for this account. I was not involved in the patient's management. Kasie Villeda NP Jan 04, 2018 12:00
== END 2018-01-03 17:30 | disposition home or self-care (01) | DRG 310 ==
LOC: EMR 13:20 → 2E 13:44 → EDBEDREQ 15:02
DX: I48.91 Unspecified atrial fibrillation (principal); I50.9 Heart failure, unspecified; M10.9 Gout, unspecified; F41.9 Anxiety disorder, unspecified
CPT/HCPCS: 36415; 71045; 80048; 80053; 80061; 80307; 81003; 82550; 83735; 83880; 84443; 84484; 84550; 85025; 85610; 85730; 93005; 94664; 94760; 99285; J2405; J8499

== ENCOUNTER 2018-01-07 12:03 | Emergency (ER) | payer MEDICARE, MEDICAID ==
[~2018-01-07] VITALS: Ht 177.8 cm; Wt 110.7 kg
[2018-01-07 12:40] VITALS: BP 162/112
[2018-01-07] MEDS ORDERED: Sodium Chloride 500ML 550 ML IV SCH (13:00)
[2018-01-07] MEDS ORDERED: Morphine Sulfate 4mg/ml Inj IVP ONE (13:00)
--- NOTE | 2018-01-07 13:19 | Emergency Room Report ---
History of Present Illness General Chief Complaint: Pain Present Illness HPI 67-year-old male presents to the emergency department complaining of 10 out of 10 in severity bilateral leg foot and ankle pain, in addition to swelling bilaterally. Patient states that he has intermittent swelling sometimes and is prescribed Lasix daily. Patient also states that he believes he is having a gout attack. Patient has history of A. fib and high blood pressure. Patient also states that he over the course of the last 2 days has been having shortness of breath and dyspnea on exertion. Patient reports he has a history of CHF. He denies productive cough. Denies constipation, diarrhea or abdominal pain/tenderness. Denies CP, Palpitations, LOC, AMS, dizziness, Changes in Vision , Sensation, paresthesias, or a sudden severe headache. Denies trauma, fall, fevers, or chills. denies erythema of skin or joints. (Amy Salmon) Allergies: Coded Allergies: No Known Allergies (Unverified , 08/21/17) Patient History Past Medical History: see triage record, HTN, CHF, AFib Past Surgical History: unable to obtain Pertinent Family History: none Reviewed Nursing Documentation: PMH: Agreed; PSxH: Agreed (Amy Salmon) Nursing Documentation-PMH Hx Cardiac Problems: Yes - afib, chf Hx Hypertension: Yes Hx Cancer: No Hx Gastrointestinal Problems: No (Amy Salmon) Review of Systems All Other Systems: negative except mentioned in HPI (Amy Salmon) Physical Exam Vital Signs Date Time Temp Pulse Resp B/P (MAP) Pulse Ox O2 Delivery O2 Flow Rate FiO2 01/07/18 12:21 98.5 85 20 162/112 98 Room Air 98.4 Sp02 EP Interpretation: reviewed, normal General Appearance: no apparent distress, alert, GCS 15, non-toxic, mild distress Head: normocephalic, atraumatic ENT: hearing grossly normal, normal voice Neck: full range of motion Respiratory: chest non-tender, lungs clear, normal breath sounds, no respiratory distress, no wheezing, speaking full sentences Cardiovascular #1: normal peripheral pulses, regular rate, rhythm, normal capillary refill, other - No JVD, edema - bilateral feet Musculoskeletal: back normal, gait/station normal, normal range of motion, tender - Bilateral dorsum of feet. Neurologic: alert, oriented x3, responsive, motor strength/tone normal, sensory intact, normal gait, speech normal, grossly normal Psychiatric: judgement/insight normal Skin: normal color, no rash, warm/dry, well hydrated (Amy Salmon) Medical Decision Making PA Attestation Dr. devries is my supervising Physician whom patient management has been discussed with. (Amy Salmon) Medicare Attestation The history of Robin Charles has been reviewed and management options for him have been examined and discussed by Mateo Galeano. I have personally examined and interviewed the patient. (Mateo Galeano MD) Diagnostic Impression: Primary Impression: CHF (congestive heart failure) Qualified Codes: I50.9 - Heart failure, unspecified Additional Impression: Atrial fibrillation Qualified Codes: I48.2 - Chronic atrial fibrillation ER Course 67-year-old male presents to the emergency department complaining of 10 out of 10 in severity bilateral leg foot and ankle pain, in addition to swelling bilaterally. Patient states that he has intermittent swelling sometimes and is prescribed Lasix daily. Patient also states that he believes he is having a gout attack. Patient has history of A. fib and high blood pressure. Patient also states that he over the course of the last 2 days has been having shortness of breath and dyspnea on exertion. Patient reports he has a history of CHF. He denies productive cough. Denies constipation, diarrhea or abdominal pain/tenderness. Denies CP, Palpitations, LOC, AMS, dizziness, Changes in Vision , Sensation, paresthesias, or a sudden severe headache. Denies trauma, fall, fevers, or chills. denies erythema of skin or joints. Ddx considered but are not limited to CHF, VA, pneumonia, PE, ACS, gout, peripheral edema, venous insufficiency, DVT just to name a few Vital signs: are WNL, pt. is afebrile H&PE are most consistent with CHF exacerbation ORDERS: - EK a-fib with RVR -CBC* hb 6.5 -CMP -CK-MB -Troponins: 0.2 ( Elevated) -BNP:( elevated) PT/PTT -Type and Screen patient refused guaiac. ED INTERVENTIONS: - PT. placed on cardiac monitoring. -4mg Morphine IV - Metoprolol IV for rate control - 20 milligrams Lasix IV - 2 Units PRBC's- ordered but declined by pt. DISPOSITION: at this time pt. will be admitted for CHF and Severe Anemia. DISPOSITION: Pt. Requests AMA. he refuses additional blood draws to confirm anemia, says to get lab results performed yesterday at [facility]. pt. - At this time the patient is requesting to leave AGAINST MEDICAL ADVICE. I believe that this patient has the capacity to make decisions on his own. I discussed with the patient the risks of leaving AMA. Some of these risks include delay in diagnosis and treatment, as well as worsening of symptoms, organ damage, and permanent disability or even . After discussing these risks with the patient. He continues to express His want to leave AGAINST MEDICAL ADVICE. I also had attending physician speak with pt. and encourage him to stay. I encouraged the patient to return at any time, and that she will be welcome here in the emergency department to continue medical management. Labs Test 01/07/18 13:22 01/07/18 15:03 White Blood Count 5.2 K/UL (4.8-10.8) Red Blood Count 2.19 M/UL (4.70-6.10) Hemoglobin 6.5 G/DL (14.2-18.0) Hematocrit 21.2 % (42.0-52.0) Mean Corpuscular Volume 97 FL (80-99) Mean Corpuscular Hemoglobin 29.9 PG (27.0-31.0) Mean Corpuscular Hemoglobin Concent 30.8 G/DL (32.0-36.0) Red Cell Distribution Width 12.8 % (11.6-14.8) Platelet Count 21 K/UL (150-450) Mean Platelet Volume 10.4 FL (6.5-10.1) Neutrophils (%) (Auto) % (45.0-75.0) Lymphocytes (%) (Auto) % (20.0-45.0) Monocytes (%) (Auto) % (1.0-10.0) Eosinophils (%) (Auto) % (0.0-3.0) Basophils (%) (Auto) % (0.0-2.0) Differential Total Cells Counted 100 Neutrophils % (Manual) 65 % (45-75) Lymphocytes % (Manual) 24 % (20-45) Monocytes % (Manual) 8 % (1-10) Eosinophils % (Manual) 2 % (0-3) Basophils % (Manual) 1 % (0-2) Band Neutrophils 0 % (0-8) Platelet Estimate Decreased Platelet Morphology Normal Hypochromasia 4+ Anisocytosis 1+ Sodium Level 142 MMOL/L (136-145) Potassium Level 4.2 MMOL/L (3.5-5.1) Chloride Level 114 MMOL/L (98-107) Carbon Dioxide Level 20 MMOL/L (21-32) Anion Gap 8 mmol/L (5-15) Blood Urea Nitrogen 22 mg/dL (7-18) Creatinine 1.5 MG/DL (0.55-1.30) Estimat Glomerular Filtration Rate 56.6 mL/min (>60) Glucose Level 76 MG/DL (74-106) Uric Acid 7.3 MG/DL (2.6-7.2) Calcium Level 9.0 MG/DL (8.5-10.1) Total Bilirubin 0.4 MG/DL (0.2-1.0) Aspartate Amino Transf (AST/SGOT) 50 U/L (15-37) Alanine Aminotransferase (ALT/SGPT) 51 U/L (12-78) Alkaline Phosphatase 85 U/L (46-116) Total Creatine Kinase 97 U/L (26-308) Creatine Kinase MB 1.2 NG/ML (0.0-3.6) Creatine Kinase MB Relative Index 1.2 Troponin I 0.217 ng/mL (0.000-0.056) C-Reactive Protein, Quantitative < 0.4 mg/dL (0.00-0.90) Pro-B-Type Natriuretic Peptide 1228 pg/mL (0-125) Total Protein 5.4 G/DL (6.4-8.2) Albumin 2.5 G/DL (3.4-5.0) Globulin 2.6 g/dL Albumin/Globulin Ratio 1.0 (1.0-2.7) Erythrocyte Sedimentation Rate 5 MM/HR (0-20) Prothrombin Time 11.0 SEC (9.30-11.50) Prothromb Time International Ratio 1.0 (0.9-1.1) Activated Partial Thromboplast Time 30 SEC (23-33) (Amy Salmon) EKG Diagnostic Results EP Interpretation: Dr. Galeano Rate: tachycardiac - 115 Rhythm: other - A-fib with Rvr ST Segments: no acute changes ASA given to the pt in ED: No PA Scribe Text This Interpretation was scribed by ATIF Salmon. (Amy Salmon) Chest X-Ray Diagnostic Results Chest X-Ray Diagnostic Results : Chest X-Ray Ordered: Yes # of Views/Limited/Complete: 1 View Indication: Shortness of Breath EP Interpretation: Yes PA Xray: Interpretation reviewed, by supervising MD, and agrees with findings. Interpretation: no effusion, no pneumothorax, other - right lobe infiltrates Impression: Other - abnormal Electronically Signed by: Amy Salmon PA-C (Amy Salmon) Last Vital Signs Date Time Temp Pulse Resp B/P (MAP) Pulse Ox O2 Delivery O2 Flow Rate FiO2 01/07/18 12:40 98.4 90 20 162/112 98 Room Air 98.4 (Amy Salmon) Disposition: AGAINST MEDICAL ADVICE Condition: Serious Referrals: NOT CHOSEN IPA/,REFERRING (PCP) Amy Salmon Jan 07, 2018 13:19 Mateo Galeano MD Jan 13, 2018 13:42
[2018-01-07 13:42] LABS: HEMATOCRIT 21.2 % (42.0-52.0); MEAN CORPUSCULAR VOLUME 97 FL (80-99); PLATELET COUNT 21 K/UL (150-450); RED BLOOD COUNT 2.19 M/UL (4.70-6.10); RED CELL DISTRIBUTION WIDTH 12.8 % (11.6-14.8); WHITE BLOOD COUNT 5.2 K/UL (4.8-10.8)
[2018-01-07 13:45] LABS: HEMOGLOBIN 6.5 G/DL (14.2-18.0)
--- NOTE | 2018-01-07 13:49 | Diagnostic Imaging Report ---
Indication: Dyspnea Comparison: 01/02/2018 A single view chest radiograph was obtained. Findings: Mild pulmonary vascular congestion demonstrated with cardiomegaly. Findings are marginally improved since the last examination. There is evidence of a probable small right pleural effusion. IMPRESSION: Suspected mild CHF
[2018-01-07] MEDS ORDERED: Metoprolol 5mg/5ml Inj IVP SCH (14:15)
[2018-01-07 14:19] LABS: ALANINE AMINOTRANSFERASE 51 U/L (12-78); ALBUMIN 2.5 G/DL (3.4-5.0); ALKALINE PHOSPHATASE 85 U/L (46-116); ANION GAP 8 mmol/L (5-15); ASPARTATE AMINO TRANSFERASE 50 U/L (15-37); BILIRUBIN,TOTAL 0.4 MG/DL (0.2-1.0); BLOOD UREA NITROGEN 22 mg/dL (7-18); CARBON DIOXIDE 20 MMOL/L (21-32); CHLORIDE 114 MMOL/L (98-107); CKMB 1.2 NG/ML (0.0-3.6); POTASSIUM 4.2 MMOL/L (3.5-5.1); SODIUM 142 MMOL/L (136-145)
[2018-01-07 14:35] VITALS: BP 149/106
[2018-01-07 14:35] LABS: CREATININE 1.5 MG/DL (0.55-1.30)
[2018-01-07 14:36] LABS: CREATINE KINASE 97 U/L (26-308)
[2018-01-07 16:06] VITALS: BP 149/106
--- NOTE | 2018-01-09 18:46 | Cardiology Report ---
APPROVED REPORT EKG Measurement Heart [id number] Atrial fibrillation with rapid ventricular response T wave abnormality, consider inferior ischemia Abnormal ECG
== END 2018-01-07 16:06 | disposition left against medical advice (07) ==
LOC: EMR 12:54 → CANBEDREQ 19:11
DX: I11.0 Hypertensive heart disease with heart failure (principal); I50.9 Heart failure, unspecified; I48.91 Unspecified atrial fibrillation
CPT/HCPCS: 36415; 71045; 80053; 82550; 82553; 83880; 84484; 84550; 85007; 85025; 85610; 85651; 85730; 86140; 86850; 86900; 86901; 86920; 93005; 96361; 96374; 96375; 99284; J1940; J2270; 96360; 96365

== ENCOUNTER 2018-01-12 23:28 | Emergency (ER) | payer MEDICARE, MEDICAID ==
[~2018-01-12] VITALS: Ht 177.8 cm; Wt 149.7 kg
[2018-01-13] VITALS: BP 128/75
--- NOTE | 2018-01-13 00:51 | Emergency Room Report ---
History of Present Illness General Chief Complaint: Pain Source: Patient Present Illness HPI Patient present with complaints of left-sided knee pain and gout exacerbation Patient reports that he has been followed closely by his primary physician Has different pain medications at home however there are not helping Patient denies any fevers denies any fall or trauma Denies any dysuria frequency Denies any short of breath Patient has a complex medical history including atrial fibrillation and CHF Has had recent hospitalizations as well however today denies any shortness of breath Allergies: Coded Allergies: No Known Allergies (Unverified , 08/21/17) Patient History Past Medical History: see triage record Pertinent Family History: none Reviewed Nursing Documentation: PMH: Agreed; PSxH: Agreed Nursing Documentation-PMH Past Medical History: No History, Except For Hx Cardiac Problems: Yes - afib, chf Hx Hypertension: Yes Hx Cancer: No Hx Gastrointestinal Problems: No Review of Systems All Other Systems: negative except mentioned in HPI Physical Exam Vital Signs Date Time Temp Pulse Resp B/P (MAP) Pulse Ox O2 Delivery O2 Flow Rate FiO2 01/12/18 23:40 97.5 73 16 130/78 96 Room Air 97.5 Sp02 EP Interpretation: reviewed, normal General Appearance: well appearing, no apparent distress Head: normocephalic, atraumatic Eyes: bilateral eye PERRL, bilateral eye EOMI ENT: normal pharynx Neck: supple Respiratory: lungs clear Cardiovascular #1: regular rate, rhythm, no edema Gastrointestinal: soft Musculoskeletal: other - Mild swelling to the left knee however no obvious redness joint is freely mobile, Neurologic: alert, oriented x3, responsive Skin: no rash Lymphatic: no adenopathy Medical Decision Making Diagnostic Impression: Primary Impression: Chronic gout Additional Impressions: Gout Drug-seeking behavior ER Course After prolonged conversation and discussion Patient initially reports that he is not here for pain and simply wants to adjust the swelling However later after discussions patient now requesting pain medicine I did discuss with him my concern regarding his presentation and the need to present to the ER for opiate medication Patient continues to discuss his other medical conditions and the fact that he does have multiple comorbidities At this time recommended to follow closely with his primary physician Last Vital Signs Date Time Temp Pulse Resp B/P (MAP) Pulse Ox O2 Delivery O2 Flow Rate FiO2 01/12/18 23:40 97.5 73 16 130/78 96 Room Air 97.5 Status: improved Disposition: HOME, SELF-CARE Condition: Improved Additional Instructions: Patient is provided with the discharge instructions notified to follow up with primary doctor in the next 2-3 days otherwise return to the er with any worsening symptoms. Please note that this report is being documented using [employer] technology. This can lead to erroneous entry secondary to incorrect interpretation by the dictating instrument. Christie Celeste DO Jan 13, 2018 00:51
[2018-01-13] MEDS ORDERED: HYDROmorphone 1mg/ml Carpuject IM ONE (01:00)
[2018-01-13 01:10] VITALS: BP 128/75
== END 2018-01-13 01:10 | disposition home or self-care (01) ==
LOC: EMR 23:59
DX: M1A.9XX0 Chronic gout, unspecified, without tophus (tophi) (principal); Z76.5 Malingerer [conscious simulation]; I48.91 Unspecified atrial fibrillation; I50.9 Heart failure, unspecified; I11.0 Hypertensive heart disease with heart failure
CPT/HCPCS: 99283; J1170

== ENCOUNTER 2018-01-26 21:48 | Emergency (ER) | payer MEDICARE, MEDICAID ==
[~2018-01-26] VITALS: Ht 177.8 cm; Wt 104.3 kg
[2018-01-26 21:51] VITALS: BP 108/66
[2018-01-26 22:15] VITALS: BP 108/66
[2018-01-26] MEDS ORDERED: Morphine Sulfate 2mg/ml Inj(IV/IM USE ONLY) IM ONE (22:15)
[2018-01-26] MEDS ORDERED: PREDNISONE20 MG ORAL (22:22)
--- NOTE | 2018-01-26 23:42 | Emergency Room Report ---
History of Present Illness General Chief Complaint: Pain Source: Patient Present Illness HPI 67-year-old male presents ED complaining of bilateral knee and foot pain. Started this morning. History of gout. States feels typical of his gout flareup. Denies any recent injury. States he was discharged this morning from another hospital for treatment of his A. fib. Pain is throbbing, 8 out of 10, nonradiating. Denies fevers or chills. No other aggravating or relieving factors. Denies any other associated symptoms Allergies: Coded Allergies: No Known Allergies (Unverified , 08/21/17) Patient History Past Medical History: none, HTN, CHF, AFib Past Surgical History: none Pertinent Family History: none Social History: Denies: smoking, alcohol use, drug use Immunizations: UTD Reviewed Nursing Documentation: PMH: Agreed; PSxH: Agreed Nursing Documentation-PMH Hx Cardiac Problems: Yes - afib, chf Hx Hypertension: Yes Hx Cancer: No Hx Gastrointestinal Problems: No Review of Systems All Other Systems: negative except mentioned in HPI Physical Exam Vital Signs Date Time Temp Pulse Resp B/P (MAP) Pulse Ox O2 Delivery O2 Flow Rate FiO2 01/26/18 21:51 97.7 88 16 108/66 98 Room Air 97.7 Sp02 EP Interpretation: reviewed, normal General Appearance: no apparent distress, alert, GCS 15, non-toxic Head: normocephalic Eyes: bilateral eye normal inspection, bilateral eye PERRL ENT: normal ENT inspection Neck: normal inspection Respiratory: normal inspection Cardiovascular #1: normal inspection Gastrointestinal: normal inspection Rectal: deferred Genitourinary: no CVA tenderness Musculoskeletal: swelling, tender - bilateral knee, bilateral feet Neurologic: alert, oriented x3, responsive, motor strength/tone normal, sensory intact, speech normal Psychiatric: normal inspection Skin: normal inspection Lymphatic: normal inspection Medical Decision Making Diagnostic Impression: Primary Impression: Gout Qualified Codes: M1A.09X0 - Idiopathic chronic gout, multiple sites, without tophus (tophi) ER Course Hospital Course 67-year-old M presents ED with bilateral knee/foot pain and swelling. History of gout Differential diagnoses include: Fracture, dislocation, sprain, contusion, bursitis, septic joint Clinical course Patient placed on stretcher. After initial history, physical exam reveals an elderly male in no acute distress. There is swelling to the bilateral knees, feet. No fluctuance. Patient appears well and nontoxic. Given history of gout my suspicion for septic arthritis is low. Given morphine IM and prednisone in ED with pain improved Diagnosis - gout Stable and discharged to home with prescription for prednisone. Followup with PMD. Return to ED if symptoms recur or worsen Last Vital Signs Date Time Temp Pulse Resp B/P (MAP) Pulse Ox O2 Delivery O2 Flow Rate FiO2 01/26/18 22:32 97.7 88 16 108/66 98 Room Air 207.9 Status: improved Disposition: HOME, SELF-CARE Condition: Stable Scripts Prednisone* (PREDNISONE*) 20 Mg Tablet 40 MG ORAL DAILY, #10 TAB Prov: Mateo Galeano MD 01/26/18 Referrals: NOT CHOSEN IPA/,REFERRING (PCP) Patient Instructions: Gout, [id number] Mateo Galeano MD Jan 26, 2018 23:42
== END 2018-01-26 22:44 | disposition home or self-care (01) ==
LOC: EMR 22:30
DX: M10.9 Gout, unspecified (principal); I11.0 Hypertensive heart disease with heart failure; I50.9 Heart failure, unspecified; I48.91 Unspecified atrial fibrillation
CPT/HCPCS: 96372; 99283; J2270; J7512

== ENCOUNTER 2018-02-04 14:11 | Emergency (ER) | payer MEDICARE, MEDICAID ==
[~2018-02-04] VITALS: Ht 177.8 cm; Wt 104.3 kg
[2018-02-04] MEDS ORDERED: Furosemide 40mg tab ORAL ONE (14:45)
[2018-02-04] MEDS ORDERED: Morphine Sulfate 4mg/ml Inj (IV USE ONLY) IV ONE (14:45)
--- NOTE | 2018-02-04 14:46 | Emergency Room Report ---
History of Present Illness General Chief Complaint: Dyspnea/Respdistress Source: Patient Present Illness HPI Patient is a 67-year-old male who presented after increased difficulty breathing. Patient prior history of chronic congestive heart failure as well as atrial fibrillation. He reports having improving swelling to his lower extremities. Patient reports having been drinking increased amounts of Gatorade recently. He reports having increased pain and swelling to his joints. Patient prior history of gout. This had been long-standing is had many visits for similar symptoms. Allergies: Coded Allergies: No Known Allergies (Unverified , 08/21/17) Patient History Reviewed Nursing Documentation: PMH: Agreed; PSxH: Agreed Nursing Documentation-PMH Past Medical History: No History, Except For Hx Cardiac Problems: Yes - afib, chf Hx Hypertension: Yes Hx Cancer: No Hx Gastrointestinal Problems: No Review of Systems All Other Systems: negative except mentioned in HPI Physical Exam Vital Signs Date Time Temp Pulse Resp B/P (MAP) Pulse Ox O2 Delivery O2 Flow Rate FiO2 02/04/18 14:19 98.3 80 16 144/79 98 Room Air 98.2 Sp02 EP Interpretation: reviewed, normal General Appearance: normal inspection, well appearing, no apparent distress, alert, GCS 15, non-toxic Head: atraumatic ENT: normal ENT inspection, hearing grossly normal, normal voice Neck: normal inspection, full range of motion, supple, no bony tend Respiratory: normal inspection, lungs clear, normal breath sounds, no respiratory distress, no retraction, no wheezing Cardiovascular #1: regular rate, rhythm, no edema Gastrointestinal: normal inspection, normal bowel sounds, non tender, soft, no guarding, no hernia Genitourinary: no CVA tenderness Musculoskeletal: normal inspection, back normal, normal range of motion, other - moderate joint swelling Neurologic: normal inspection, alert, oriented x3, responsive, 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 Differential diagnosis included but was not limited to fracture, contusion, renal stone, vascular insufficiency, aortic aneurysm, cellulitis. Patient has a benign exam and does not appear to require any further imaging or laboratory testing at this time. The patient was given pain medications. He is advised follow-up with his primary care physician for further evaluation and treatment. The patient was given oral Lasix. He's had multiple recent visits for similar type symptoms.The patient is advised to follow up with primary care doctor in 1-2 days. Patient is advised to return if any worsening condition or if any changes in status that are concerning. This report is dictated with [employer] frame [employer] software which may occasionally lead to discrepancies related to use of this software. Last Vital Signs Date Time Temp Pulse Resp B/P (MAP) Pulse Ox O2 Delivery O2 Flow Rate FiO2 02/04/18 14:19 98.3 80 16 144/79 98 Room Air 98.2 Status: improved Disposition: HOME, SELF-CARE Condition: Stable Fahad Castillo MD Feb 04, 2018 14:45
[2018-02-04 14:50] VITALS: BP 144/79
[2018-02-04] MEDS ORDERED: Morphine Sulfate 2mg/ml Inj(IV/IM USE ONLY) IM ONE (15:00)
[2018-02-04 15:53] VITALS: BP 144/79
== END 2018-02-04 15:30 | disposition home or self-care (01) ==
LOC: EMR 14:55
DX: I48.91 Unspecified atrial fibrillation (principal); M10.9 Gout, unspecified; I10 Essential (primary) hypertension
CPT/HCPCS: 96374; 99284; J2270

== ENCOUNTER 2018-02-13 16:23 | Emergency (ER) | payer MEDICARE, MEDICAID ==
[~2018-02-13] VITALS: Ht 177.8 cm; Wt 104.3 kg
[2018-02-13 16:30] VITALS: BP 117/81
[2018-02-13] MEDS ORDERED: Ketorolac 30mg Inj IM ONE (17:15)
--- NOTE | 2018-02-13 17:23 | Emergency Room Report ---
History of Present Illness General Chief Complaint: Pain Source: Patient, Medical Record Present Illness HPI 67-year-old male patient presents ER complaining of bilateral knee pain. Reports intermittent been present for the past few days. Reports history of gout, states it feels like gout pain.. Reports she is taking multiple medications for his gout, states taking prednisone and Medrol Dosepak currently. Reports history of CHF and A. fib, denies chest pain or shortness of breath, currently taking Plavix. previously seen in the ER multiple times for similar symptoms, previously seen requesting pain medication. Denies fever , chest pain, shortness of breath. Denies calf pain. Denies recent injury. denies abdominal pain other acute symptoms at this time. Reports has follow-up appointment with his primary care provider tomorrow. Reports swelling symptoms have improved recently still has pain, taking diclofenac and tramadol, states does not like taking the tramadol requesting other pain medication. Reports taking Lasix for edema, last took medication today. Allergies: Coded Allergies: No Known Allergies (Unverified , 08/21/17) Patient History Past Medical History: see triage record Reviewed Nursing Documentation: PMH: Agreed; PSxH: Agreed Nursing Documentation-PMH Past Medical History: No History, Except For Hx Cardiac Problems: Yes - afib, chf Hx Hypertension: Yes Hx Cancer: No Hx Gastrointestinal Problems: No Review of Systems All Other Systems: negative except mentioned in HPI Physical Exam Vital Signs Date Time Temp Pulse Resp B/P (MAP) Pulse Ox O2 Delivery O2 Flow Rate FiO2 02/13/18 16:30 98.6 66 18 117/81 98 Room Air 98.6 Sp02 EP Interpretation: reviewed, normal General Appearance: well appearing, no apparent distress, alert, GCS 15, non- toxic Head: normocephalic, atraumatic Eyes: bilateral eye normal inspection, bilateral eye PERRL ENT: hearing grossly normal, normal pharynx, no angioedema, normal voice, uvula midline, moist mucus membranes Neck: full range of motion Respiratory: lungs clear, normal breath sounds, no rhonchi, no respiratory distress, no accessory muscle use, no wheezing, speaking full sentences Cardiovascular #1: regular rate, rhythm, edema Musculoskeletal: back normal, digits/nails normal, gait/station normal, normal range of motion, no calf tenderness, Mayda's Sign negative, other - NIV, no gouty tophi, no erythema, no warmth to touch, tender - bilateral knees Neurologic: alert, oriented x3, responsive, motor strength/tone normal, sensory intact Psychiatric: mood/affect normal Skin: no rash Lymphatic: no adenopathy Medical Decision Making PA Attestation Dr. Salcedo is my supervising Physician whom patient management has been discussed with. Diagnostic Impression: Primary Impression: Pain Additional Impression: Drug-seeking behavior ER Course Pt. presents to the ED c/o bilateral knee pain. multiple differentials considered. Vital signs: are WNL, pt. is afebrile ER COURSE: bilateral swelling of feet and knees, no gouty tophi noted, possible cause of pain symptoms. negative Homans sign, no chest pain, no shortness of breath, no cough or hemoptysis, low suspicion for PE or DVT. Low suspicion for acute CHF exacerbation, denies chest pain or shortness of breath. reviewed CURES. Reviewed previous patient charts. Previously recieved morphine and other narcotic medications while in the ER. Patient currently taking medrol dose pack and prednisone, will not steroid medication. Currently taking allopurinol and diclofenac for gout symptoms. States taking lasix medication, last took today, does not require medication in the ER. Continue to take as instructed, wear compression stockings. patient reports symptoms have improved since previous visit, states he has follow-up with his primary care provider and has appointment scheduled for tomorrow. Previous charts state the patient has been here to the ER requesting pain medication. Will provide patient with Toradol. Informed patient that because he is following up with his primary care provider and has multiple medications currently, needs to discuss pain management with his primary care provider and discuss further referral to [facility] as needed. Patient reports understanding and agreement to treatment plan. States does not need refills of medications. DISCHARGE: At this time pt is stable for d/c to home. Patient is resting comfortably, in no acute distress, nontoxic appearing, talking without difficulty. Patient to take medications as instructed Will provide with patient care instructions and any necessary prescriptions. Care plan and follow-up instructions provided. Patient instructed to follow-up with primary care provider in 3 - 5 days. Patient questions asked and answered. Patient reports understanding and agreement to treatment plan. ER precautions given. Patient instructed to return to ER immediately for any new or worsening of symptoms including but not limited to increasing SOB, persistent fever, chest pain, intractable vomiting. - Please note that this Emergency Department Report was dictated using ePatientFinderhooker up technology software, occasionally this can lead to erroneous entry secondary to interpretation by the dictation equipment. Last Vital Signs Date Time Temp Pulse Resp B/P (MAP) Pulse Ox O2 Delivery O2 Flow Rate FiO2 02/13/18 17:18 98.6 02/13/18 16:30 66 18 117/81 98 Room Air Status: improved Disposition: HOME, SELF-CARE Condition: Stable Referrals: NON PHYSICIAN (PCP) Patient Instructions: Gout, [id number], Peripheral Edema Additional Instructions: Followup with primary care provider in 2-3 days. Discuss pain control at that time. Take medications as directed. Patient questions asked and answered. ER precautions given, patient instructed to return to ER immediately for any new or worsening of symptoms. Dougie Tracy Feb 13, 2018 17:23
[2018-02-13 18:00] VITALS: BP 121/81
== END 2018-02-13 18:00 | disposition home or self-care (01) ==
LOC: EMR 16:55
DX: M25.562 Pain in left knee (principal); M25.561 Pain in right knee; Z76.5 Malingerer [conscious simulation]; I11.0 Hypertensive heart disease with heart failure; I50.9 Heart failure, unspecified; I48.91 Unspecified atrial fibrillation
CPT/HCPCS: 99283; J1885

== ENCOUNTER 2018-02-19 22:49 | Emergency (ER) | payer MEDICARE, MEDICAID ==
[~2018-02-19] VITALS: Ht 172.7 cm; Wt 83.9 kg
--- NOTE | 2018-02-19 23:44 | Emergency Room Report ---
History of Present Illness General Chief Complaint: General Complaint Present Illness HPI This patient is here c/o chronic leg swelling and pain. He is compliant with his meds. He is managed closely for CHF with same PMD for >15 years. He takes Lasix TID and says he has significant diuresis with each Lasix. The patient talks round and round but it turns out his leg swelling is actually improved from baseline. He gets weekly weigh-ins including yesterday 230 which he says is normal for him. He requests pain shot for leg pain. He says the swelling is b /c he walks a lot b/c he no longer drives. Of note the patient has no sob, no chest pain, no cough, no fever. He is lying FLAT on the gurney. Meds: potassium, carvedilol, diconofenac, allopurinol, Xarelto, Lasix TID Allergies: Coded Allergies: No Known Allergies (Unverified , 08/21/17) Nursing Documentation-PMH Hx Cardiac Problems: Yes - afib, chf Hx Hypertension: Yes Hx Cancer: No Hx Gastrointestinal Problems: No Review of Systems Constitutional: Denies: fever Eye: Denies: acuity changes Respiratory: Denies: cough, shortness of breath Cardiovascular: Denies: chest pain Gastrointestinal: Denies: nausea, vomiting Musculoskeletal: Reports: see HPI Skin: Denies: rash Neurological: Denies: headache All Other Systems: negative except mentioned in HPI Physical Exam Vital Signs Date Time Temp Pulse Resp B/P (MAP) Pulse Ox O2 Delivery O2 Flow Rate FiO2 02/19/18 23:06 98.0 78 16 145/70 98 Room Air 98.1 General Appearance: well appearing, no apparent distress Head: normocephalic, atraumatic ENT: hearing grossly normal, normal voice Neck: full range of motion, supple Respiratory: no respiratory distress, speaking full sentences Musculoskeletal: no calf tenderness, other - 2-3+ pedal edema until approx. distal third leg, then 1+ lower leg only Neurologic: alert, normal gait Psychiatric: mood/affect normal Skin: no rash Medical Decision Making Diagnostic Impression: Primary Impression: Pain ER Course I think patient is in ED due to loneliness/boredom/analgesic? There is no change from his baseline issues (CHF, afib) in fact things are stable/improved. Weight stable per patient. On exam no signs of failure. VSS. He is comfortable lying flat, no crackle, unimpressive peripheral (leg) edema. Has his meds. Toradol dose given and ok for d/c. Last Vital Signs Date Time Temp Pulse Resp B/P (MAP) Pulse Ox O2 Delivery O2 Flow Rate FiO2 02/19/18 23:06 98.0 78 16 145/70 98 Room Air 98.1 Condition: Stable Referrals: NON PHYSICIAN (PCP) Patient Instructions: Peripheral Edema Joselo Hidalgo M.D. Feb 19, 2018 23:44
[2018-02-19] MEDS ORDERED: Ketorolac 30mg Inj IV ONE (23:45)
[2018-02-19 23:58] VITALS: BP 145/70
[2018-02-20] MEDS ORDERED: Ketorolac 60mg Inj IM ONE
[2018-02-20 00:06] VITALS: BP 145/70
== END 2018-02-20 00:16 | disposition home or self-care (01) ==
LOC: EMR 23:31
DX: M79.605 Pain in left leg (principal); M79.604 Pain in right leg; R60.0 Localized edema; I11.0 Hypertensive heart disease with heart failure; I50.9 Heart failure, unspecified; I48.91 Unspecified atrial fibrillation; Z79.01 Long term (current) use of anticoagulants
CPT/HCPCS: 96372; 99283

== ENCOUNTER 2018-03-17 02:37 | Emergency (ER) | payer MEDICARE, MEDICAID ==
[~2018-03-17] VITALS: Ht 177.8 cm; Wt 104.3 kg
[2018-03-17 02:52] VITALS: BP 161/87
[2018-03-17] MEDS ORDERED: ALBUTEROL2.5 MG/3 M INH (03:15)
[2018-03-17] MEDS ORDERED: CARVEDILOL6.25 MG GT (03:15)
[2018-03-17] MEDS ORDERED: PRO-STAT AWC L887 ML GT (03:15)
[2018-03-17] MEDS ORDERED: MULTI-DELYN237 ML GT (03:15)
[2018-03-17] MEDS ORDERED: MILK OF MA400 MG/51 GT (03:15)
[2018-03-17] MEDS ORDERED: COLACE100 MG GT (03:15)
[2018-03-17] MEDS ORDERED: PHENYTOIN100 MG/4 M GT (03:15)
[2018-03-17] MEDS ORDERED: PROTONIX40 M2 GT (03:15)
[2018-03-17] MEDS ORDERED: ACIDOPHILUS LA1 EAC1 GT (03:15)
[2018-03-17] MEDS ORDERED: Furosemide 40mg tab ORAL ONE (03:30)
[2018-03-17] MEDS ORDERED: Norco 5mg/325mg tab ORAL ONE (03:30)
[2018-03-17] MEDS ORDERED: NORCO 5-325 TA1 EACH ORAL ×2 (03:33→04:02)
--- NOTE | 2018-03-17 04:29 | Emergency Room Report ---
History of Present Illness General Chief Complaint: Pain Source: Patient Present Illness HPI Patient is a 67-year-old male presented after increased bilateral lower extremity pain. Patient gradual onset of symptoms. Patient had somewhat symptoms in the past and has had multiple visits to this emergency department for similar symptoms. Patient prior history of congestive heart failure as well as gout. Patient is poorly compliant with his diet. Patient had previously been prescribed medications for heart failure. Recent eye surgery. He denies any visual changes. 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 The patient denies any shortness of breath. He reports having Lasix at home. The patient denies any new visual changes. Allergies: Coded Allergies: No Known Allergies (Unverified , 08/21/17) Patient History Past Medical History: see triage record Reviewed Nursing Documentation: PMH: Agreed; PSxH: Agreed Nursing Documentation-PMH Hx Cardiac Problems: Yes - afib, chf Hx Hypertension: Yes Hx Cancer: No Hx Gastrointestinal Problems: No Review of Systems All Other Systems: negative except mentioned in HPI Physical Exam Vital Signs Date Time Temp Pulse Resp B/P (MAP) Pulse Ox O2 Delivery O2 Flow Rate FiO2 03/17/18 02:52 97.5 79 16 167/90 100 Room Air 97.5 General Appearance: well appearing, no apparent distress, obese, Chronically Ill Head: normocephalic, atraumatic Eyes: bilateral eye PERRL ENT: hearing grossly normal, normal voice Neck: full range of motion, supple Respiratory: lungs clear, normal breath sounds, no respiratory distress, speaking full sentences Cardiovascular #1: normal peripheral pulses, irregularly irregular, edema Gastrointestinal: normal inspection Musculoskeletal: normal inspection, swelling - bilateral edema Neurologic: normal inspection, alert, oriented x3, responsive, normal gait Psychiatric: mood/affect normal Skin: no rash Medical Decision Making Diagnostic Impression: Primary Impression: Chronic gout Additional Impression: Peripheral edema ER Course Patient presented for extremity pain. Differential diagnosis included but was not limited to pedal edema, fracture, contusion, vascular insufficiency, aortic aneurysm, cellulitis. Patient has a benign exam and does not appear to require any further imaging or laboratory testing at this time. Patient was given oral Lasix. Patient was additionally given pain medications due to the pain in his joints which appears to be chronic. The patient is advised to follow up with primary care doctor in 1-2 days. Patient is advised to return if any worsening condition or if any changes in status that are concerning. This report is dictated with [employer] Over[employer] milking system installer software which may occasionally lead to discrepancies related to use of this software. Last Vital Signs Date Time Temp Pulse Resp B/P (MAP) Pulse Ox O2 Delivery O2 Flow Rate FiO2 03/17/18 02:52 97.5 79 16 167/90 100 Room Air 97.5 Status: improved Disposition: HOME, SELF-CARE Condition: Stable Scripts Hydrocodone Bit/Acetaminophen 5-325* (NORCO 5-325*) 1 Each Tablet 1 TAB ORAL Q6H PRN for For Pain, #15 TAB 0 Refills Prov: Fahad Castillo MD 03/17/18 Referrals: NON PHYSICIAN (PCP) Patient Instructions: Chronic Pain, Heart Failure Fahad Castillo MD Mar 17, 2018 04:29
[2018-03-17 04:55] VITALS: BP 161/87
== END 2018-03-17 04:55 | disposition home or self-care (01) ==
LOC: EMR 02:54
DX: M1A.9XX0 Chronic gout, unspecified, without tophus (tophi) (principal); R60.0 Localized edema; I48.91 Unspecified atrial fibrillation; I11.0 Hypertensive heart disease with heart failure; I50.9 Heart failure, unspecified
CPT/HCPCS: 99282

== ENCOUNTER 2018-04-07 19:14 | Emergency (ER) | payer MEDICARE, MEDICAID ==
[~2018-04-07] VITALS: Ht 177.8 cm; Wt 104.3 kg
[~2018-04-07 19:14] MED LIST changes: +ACIDOPHILUS LA1 EAC1 GT; +ALBUTEROL2.5 MG/3 M INH; +CARVEDILOL6.25 MG GT; +COLACE100 MG GT; +MILK OF MA400 MG/51 GT; +MULTI-DELYN237 ML GT; +PHENYTOIN100 MG/4 M GT; +PRO-STAT AWC L887 ML GT; +PROTONIX40 M2 GT
[2018-04-07 19:27] VITALS: BP 114/78
--- NOTE | 2018-04-07 20:29 | Emergency Room Report ---
History of Present Illness General Chief Complaint: Pain Present Illness HPI 67-year-old male presents to the emergency department requesting dressing change to abrasion that he sustained from electronic massager on the posterior right calf. Patient also reports chronic edema of the right lower extremity. Patient is also complaining of a flare-up of his gout and is requesting tramadol. Patient states that he's been taking his previously prescribed medications for the most part however some of his gout medications he limits due to side effects. Patient denies trauma or fall he reports that he saw his primary care provider earlier today and was told that his swelling is getting better. Patient states that this was not an official medical visit and his PCP was not able to prescribe him anything. Patient reports history of A. fib, CHF , peripheral edema and high blood pressure. Patient states that his pain is a 10 out of 10 in severity to swelling. Patient reports taking Lasix and metolazone. Reports taking xarelto as well. He Denies erythema, fevers, chills , recent open wounds over any of the affected joints. Patient denies discharge from healing wound on the posterior right calf. Patient denies having symptoms that are not consistent with symptoms that he has previously been experiencing. Denies CP, Palpitations, LOC, AMS, dizziness, Changes in Vision, Sensation, paresthesias, or a sudden severe headache. Allergies: Coded Allergies: No Known Allergies (Unverified , 08/21/17) Patient History Past Medical History: see triage record, HTN, CHF, AFib Past Surgical History: none Pertinent Family History: none Reviewed Nursing Documentation: PMH: Agreed; PSxH: Agreed Nursing Documentation-PMH Hx Cardiac Problems: Yes - afib, chf Hx Hypertension: Yes Hx Cancer: No Hx Gastrointestinal Problems: No Review of Systems All Other Systems: negative except mentioned in HPI Physical Exam Vital Signs Date Time Temp Pulse Resp B/P (MAP) Pulse Ox O2 Delivery O2 Flow Rate FiO2 04/07/18 19:19 98.7 58 16 114/78 96 Room Air 98.8 Sp02 EP Interpretation: reviewed, normal General Appearance: no apparent distress, alert, GCS 15, non-toxic, Chronically Ill Head: normocephalic, atraumatic Eyes: bilateral eye normal inspection, bilateral eye PERRL ENT: hearing grossly normal, normal voice Neck: full range of motion Respiratory: lungs clear, normal breath sounds, speaking full sentences Cardiovascular #1: regular rate, rhythm, edema - 1-2 + non-pitting edema to right foot, ankle and up to mid calf. Musculoskeletal: back normal, gait/station normal, normal range of motion, non- tender, Damien's Sign negative, other - no erythema, no joint swelling, no warmth. see skin note for calf description Neurologic: alert, oriented x3, responsive, motor strength/tone normal, sensory intact, speech normal, grossly normal Psychiatric: judgement/insight normal Skin: normal color, no rash, warm/dry, well hydrated, other - 1-2+ non pitting right sided peripheral edema, no damien's sign, wound on posterior calf is almost healed and considered superficial at this point, no erythema or d/c. Medical Decision Making PA Attestation Dr. Patel is my supervising physician whom pt. management has been discussed with. Diagnostic Impression: Primary Impression: Knee pain, bilateral Qualified Codes: M25.561 - Pain in right knee; M25.562 - Pain in left knee; G89.29 - Other chronic pain Additional Impressions: Medication requested by patient but not prescribed or administered Change or removal of wound dressing ER Course 67-year-old male presents to the emergency department requesting dressing change to abrasion that he sustained from electronic massager on the posterior right calf. Patient also reports chronic edema of the right lower extremity. Patient is also complaining of a flare-up of his gout and is requesting tramadol. Patient states that he's been taking his previously prescribed medications for the most part however some of his gout medications he limits due to side effects. Patient denies trauma or fall he reports that he saw his primary care provider earlier today and was told that his swelling is getting better. Patient states that this was not an official medical visit and his PCP was not able to prescribe him anything. Patient reports history of A. fib, CHF , peripheral edema and high blood pressure. Patient states that his pain is a 10 out of 10 in severity to swelling. Patient reports taking Lasix and metolazone. Reports taking xarelto as well. He Denies erythema, fevers, chills , recent open wounds over any of the affected joints. Patient denies discharge from healing wound on the posterior right calf. Patient denies having symptoms that are not consistent with symptoms that he has previously been experiencing. Denies CP, Palpitations, LOC, AMS, dizziness, Changes in Vision, Sensation, paresthesias, or a sudden severe headache. - Patient has a history of gout. however presentation is very atypical for gout flare. - currently not out of any of his medications. pt. reports he saw his doctor today who said his swelling has improved. - Pt is requesting medication for his pain,- I find this to be very unusual that he was at his doctors today and his doctor did not rx him anything for his symptoms and the medication he is requesting is a controlled substance. -denies trauma Ddx considered but are not limited to cellulitis,Septic joint, fracture, d/L, gout, CHF, DVT, vascular insufficiency, peripheral edema just to name a few. Vital signs: are WNL, pt. is afebrile H&PE are most consistent with subjective complaint of pain secondary to gout attack to bilateral knees, no erythema, no significant swelling and not tender to the touch to either knees on physical exam. Evidence of 1-2+ non pitting right sided peripheral edema, no damien's sign, wound on posterior calf is almost healed and considered superficial at this point, no erythema or d/c. - given reporting himself and that his PCP told him swelling has improved and currently on Xarelto DVT is of lower suspicion at this time. ORDERS: none required at this time, the diagnosis is clinical ED INTERVENTIONS: -D/w pt. that I will treat his pain here during visit, however for pain management using a controlled substance he needs to follow up with his PMD. I reviewed with this patient That i am concernced that he is not being properly managed medically when I see in the EMR that pt. averages 2 visits per month for "gout flares" he receives a lot of colchicine and prednisone regularly which is also of concern for GI bleed and endocrine dysfunction risk. Offered pt. admission if he feels his symptoms are severe and require further evaluation - He declines. Pt. given 20mg IM Toradol - Dressing changed performed by RN with application of bacitracin. DISCHARGE: At this time pt. is stable for d/c to home. Will provide printed patient care instructions, and any necessary prescriptions. Care plan and follow up instructions have been discussed with the patient prior to discharge. Last Vital Signs Date Time Temp Pulse Resp B/P (MAP) Pulse Ox O2 Delivery O2 Flow Rate FiO2 04/07/18 19:27 97.8 58 16 114/78 96 Room Air 97.8 Disposition: HOME, SELF-CARE Condition: Stable Scripts Acetaminophen* (TYLENOL EXTRA STRENGTH*) 500 Mg Tablet 500 MG ORAL Q6H, #20 TAB 0 Refills Prov: Amy Salmon 04/07/18 Patient Instructions: Dressing Change, [id number], Knee Pain, [id number] Additional Instructions: Take all previously prescribed medications as directed. Follow up with a Primary Care Provider in 3-5 days, even if your symptoms have resolved. Return sooner to ED if new symptoms occur, or current symptoms become worse. The Emergency Department reserves the right to prescribe CONTROLLED SUBSTANCES for acute injuries. There is no evidence of an emergent condition requiring the requested medication refill that you PCP would not be able to provide. At this time there is no evidence of an acute injury. Controlled substances are very addictive and require close monitoring when being prescribed controlled substances an outpatient treatment The emergency department is not a resource to be used as outpatient followup, and therefore reserve the regular prescribing, or refill or regularly prescribed controlled substances for your PCP or your chronic pain management provider for your safety -- We urge you to follow up with your PRIMARY CARE DOCTOR who can fully evaluate you , Monitor your condition and safely prescribe any necessary medications that are controlled. - Please note that this Emergency Department Report was dictated using [employer] transfer and pumphouse operator technology software, occasionally this can lead to erroneous entry secondary to interpretation by the dictation equipment. Amy Salmon Apr 07, 2018 20:29
[2018-04-07] MEDS ORDERED: TYLENOL EXTRA500 MG ORAL (20:30)
[2018-04-07] MEDS ORDERED: Ketorolac 30mg Inj IM ONE (20:30)
[2018-04-07] MEDS ORDERED: Bacitracin Oint UD TOPIC ONE (20:30)
[2018-04-07 21:14] VITALS: BP 115/75
== END 2018-04-07 20:30 | disposition home or self-care (01) ==
LOC: EMR 19:56
DX: M25.562 Pain in left knee (principal); M25.561 Pain in right knee; Z48.00 Encounter for change or removal of nonsurgical wound dressing; I11.0 Hypertensive heart disease with heart failure; I50.9 Heart failure, unspecified; I48.91 Unspecified atrial fibrillation
CPT/HCPCS: 96372; 99283; J1885

== ENCOUNTER 2018-04-21 08:15 | Emergency (ER) | payer MEDICARE, MEDICAID ==
[~2018-04-21] VITALS: Ht 177.8 cm; Wt 81.6 kg
[~2018-04-21 08:15] MED LIST changes: +TYLENOL EXTRA500 MG ORAL
[2018-04-21 08:37] VITALS: BP 137/80
[2018-04-21] MEDS ORDERED: Morphine Sulfate 4mg/ml Inj (IV/IM USE ONLY) IM ONE (09:45)
[2018-04-21] MEDS ORDERED: COLCHICINE0.6 M1 PO (10:48)
[2018-04-21 11:07] VITALS: BP 130/70
--- NOTE | 2018-04-21 11:24 | Emergency Room Report ---
History of Present Illness General Chief Complaint: General Complaint Source: Patient, Medical Record Present Illness HPI Patient presents with complaints of what he refers to as his gout pain patient reports that he has discomfort to both of his knees and ankles denies any redness reports that he feels a swelling has improved with acute intervention however the pain has flared up Denies any chest pain or shortness of breath and eyes any dysuria frequency pain is 4 out of 10 Patient reports that he is out of his medications Allergies: Coded Allergies: No Known Allergies (Unverified , 08/21/17) Patient History Past Medical History: see triage record Pertinent Family History: none Reviewed Nursing Documentation: PMH: Agreed; PSxH: Agreed Nursing Documentation-PMH Past Medical History: No History, Except For Hx Cardiac Problems: Yes - afib, chf Hx Hypertension: Yes Hx Pacemaker: No - RETINAL DETACHMENT,RIGHT EYE Hx Asthma: No Hx COPD: No Hx Diabetes: No Hx Cancer: No Hx Gastrointestinal Problems: No Hx Dialysis: No - CRF History Of Psychiatric Problem: No Hx Neurological Problems: No - GOUT Hx Cerebrovascular Accident: No Hx Seizures: No Review of Systems All Other Systems: negative except mentioned in HPI Physical Exam Vital Signs Date Time Temp Pulse Resp B/P (MAP) Pulse Ox O2 Delivery O2 Flow Rate FiO2 04/21/18 08:27 97.0 107 16 137/80 99 Room Air 97.0 Sp02 EP Interpretation: reviewed, normal General Appearance: well appearing, no apparent distress Head: normocephalic, atraumatic Eyes: bilateral eye PERRL, bilateral eye EOMI ENT: hearing grossly normal, normal pharynx, TMs + canals normal, uvula midline Neck: full range of motion, supple, no meningismus, no bony tend Respiratory: lungs clear, normal breath sounds, no rhonchi, no respiratory distress, no retraction, no accessory muscle use Cardiovascular #1: normal peripheral pulses, regular rate, rhythm, no edema, no gallop, no JVD, no murmur Gastrointestinal: normal bowel sounds, non tender, soft, no mass, no organomegaly, non-distended, no guarding, no hernia, no pulsatile mass, no rebound Genitourinary: no CVA tenderness Musculoskeletal: other - Patient does have some arthritic changes to multiple joints including bilateral knees Neurologic: oriented x3, responsive, reserves clerk III-XII nml as tested, motor strength/ tone normal, sensory intact Psychiatric: mood/affect normal Skin: other - Dependent edema both ankles Lymphatic: normal inspection, no adenopathy Medical Decision Making Diagnostic Impression: Primary Impression: arthralgia Additional Impression: Gout ER Course Multiple differentials considered including but not limited to septic joint, arthralgia, occult fractures Patient has fairly similar presentation to previous requesting similar medication I did have discussion with the patient regarding close outpatient follow-up he reports that he is actually seeing his physician today Patient's pain is much improved and stable for close follow-up Last Vital Signs Date Time Temp Pulse Resp B/P (MAP) Pulse Ox O2 Delivery O2 Flow Rate FiO2 04/21/18 11:07 90 16 130/70 98 Room Air 04/21/18 10:17 97.0 Status: improved Disposition: HOME, SELF-CARE Condition: Improved Scripts Colchicine (Colchicine) 0.6 Mg Capsule 0.6 MG PO PRN, #12 CAP Prov: Christie Celeste DO 04/21/18 Referrals: NON PHYSICIAN (PCP) Patient Instructions: Gout, [id number] Additional Instructions: Patient is provided with the discharge instructions notified to follow up with primary doctor in the next 2-3 days otherwise return to the er with any worsening symptoms. Please note that this report is being documented using Hopper technology. This can lead to erroneous entry secondary to incorrect interpretation by the dictating instrument. Christie Celeste DO Apr 21, 2018 11:24
== END 2018-04-21 11:08 | disposition home or self-care (01) ==
LOC: EMR 08:40
DX: M10.9 Gout, unspecified (principal); I11.0 Hypertensive heart disease with heart failure; I50.9 Heart failure, unspecified; I48.91 Unspecified atrial fibrillation
CPT/HCPCS: 96372; 99283; J2270

== ENCOUNTER 2018-04-27 01:21 | Emergency (ER) | payer MEDICARE, MEDICAID ==
[~2018-04-27] VITALS: Ht 177.8 cm; Wt 99.8 kg
[2018-04-27 01:42] VITALS: BP 129/89
--- NOTE | 2018-04-27 01:55 | Emergency Room Report ---
History of Present Illness General Chief Complaint: General Complaint Source: Patient, Medical Record Present Illness HPI Is a 67-year-old male with a history of atrial fibrillation on Xarelto. He also has a history of gout. Initially came in with chief complaint of gouty attack. He is been here numerous times for the same thing. Also been to [facility] for the same thing. He complaining of swelling to his knees and ankle. Denies any fever chills denies any nausea or vomiting. Pain is 7 out of 10. Said that he is out of his pain medication. He also then brought up that he has some hematuria. He had it couple days ago and it cleared up. He also had it previously. Allergies: Coded Allergies: No Known Allergies (Unverified , 04/27/18) Patient History Past Medical History: see triage record, old chart reviewed, AFib Past Surgical History: other Pertinent Family History: none Social History: Denies: smoking Immunizations: other Reviewed Nursing Documentation: PMH: Agreed; PSxH: Agreed Nursing Documentation-PMH Past Medical History: No History, Except For Hx Cardiac Problems: Yes - afib, chf Hx Hypertension: Yes Hx Pacemaker: No - RETINAL DETACHMENT,RIGHT EYE Hx Asthma: No Hx COPD: No Hx Diabetes: No Hx Cancer: No Hx Gastrointestinal Problems: No Hx Dialysis: No - CRF Hx Neurological Problems: No - GOUT Hx Cerebrovascular Accident: No Hx Seizures: No Review of Systems Eye: Denies: eye pain, blurred vision ENT: Denies: ear pain, nose congestion, throat swelling Respiratory: Denies: cough, shortness of breath Cardiovascular: Denies: chest pain, palpitations Gastrointestinal: Denies: abdominal pain, diarrhea, nausea, vomiting Genitourinary: Reports: hematuria Musculoskeletal: Reports: joint pain, joint swelling; Denies: back pain Skin: Denies: rash Neurological: Denies: headache, numbness Endocrine: Denies: increased thirst, increased urine Hematologic/Lymphatic: Denies: easy bruising All Other Systems: negative except mentioned in HPI Physical Exam Vital Signs Date Time Temp Pulse Resp B/P (MAP) Pulse Ox O2 Delivery O2 Flow Rate FiO2 04/27/18 01:28 98.7 86 15 129/89 97 98.8 vitals normal Sp02 EP Interpretation: reviewed, normal General Appearance: well appearing, no apparent distress, alert, other Head: normocephalic, atraumatic Eyes: bilateral eye PERRL, bilateral eye EOMI ENT: hearing grossly normal, normal pharynx Neck: full range of motion, supple, no meningismus Respiratory: chest non-tender, lungs clear, normal breath sounds Cardiovascular #1: regular rate, rhythm, no murmur Gastrointestinal: normal bowel sounds, non tender, no mass, no organomegaly, no bruit, non-distended Musculoskeletal: back normal, gait/station normal, normal range of motion, swelling - trace Psychiatric: mood/affect normal Skin: warm/dry Medical Decision Making Diagnostic Impression: Primary Impression: Chronic gout Qualified Codes: M1A.09X0 - Idiopathic chronic gout, multiple sites, without tophus (tophi) Additional Impression: Hematuria Qualified Codes: R31.9 - Hematuria, unspecified ER Course Patient with chief complaint of gout. He's been in numerous hospitals for this. On the [employer] system he has multiple different narcotic prescriptions from multiple doctors. He has no evidence of urinary retention. I suspect he has narcotic seeking behavior. Last Vital Signs Date Time Temp Pulse Resp B/P (MAP) Pulse Ox O2 Delivery O2 Flow Rate FiO2 04/27/18 01:42 98.8 86 15 129/89 97 98.8 Status: unchanged Disposition: HOME, SELF-CARE Condition: Stable Referrals: NON PHYSICIAN (PCP) Additional Instructions: Follow-up your urologist regarding blood in your urine. You may need a cystoscopy. Follow-up your doctor in 7 days. Stop going to different hospitals for pain medication for your gout. Return if symptom worsen. You need to see your primary care doctor for management of your gout. Rajinder Coyle MD Apr 27, 2018 01:55
[2018-04-27 02:05] LABS: APPEARANCE,URINE SLIGHTLY CLOUDY; BILIRUBIN, URINE NEGATIVE (NEGATIVE); GLUCOSE, URINE (UA) NEGATIVE (NEGATIVE); KETONES,URINE NEGATIVE (NEGATIVE); LEUKOCYTE ESTERASE ,URINE 1+ (NEGATIVE); NITRITE,URINE NEGATIVE (NEGATIVE); PH,URINE 5 (4.5-8.0); PROTEIN,URINE 2+ (NEGATIVE); UROBILINOGEN,URINE 1 MG/DL (0.0-1.0)
[2018-04-27 02:18] LABS: COLOR,URINE YELLOW
[2018-04-27 02:38] VITALS: BP 129/89
== END 2018-04-27 02:38 | disposition home or self-care (01) ==
LOC: EMR 01:52
DX: M10.9 Gout, unspecified (principal); R31.9 Hematuria, unspecified; I48.91 Unspecified atrial fibrillation; I50.9 Heart failure, unspecified; I13.10 Hypertensive heart and chronic kidney disease without heart failure, with stage 1 through stage 4 chronic kidney disease, or unspecified chronic kidney disease; N18.9 Chronic kidney disease, unspecified; Z79.01 Long term (current) use of anticoagulants
CPT/HCPCS: 80307; 81003; 99284

== ENCOUNTER 2018-05-05 13:43 | Emergency (ER) | payer MEDICARE, MEDICAID ==
[~2018-05-05] VITALS: Ht 177.8 cm; Wt 99.8 kg
[2018-05-05] MEDS ORDERED: Ketorolac 60mg Inj IM ONE (14:15)
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
[2018-05-05 19:27] VITALS: BP 128/78
== END 2018-05-05 14:25 | disposition home or self-care (01) ==
LOC: EMR 14:18
DX: M10.9 Gout, unspecified (principal); S80.02XA Contusion of left knee, initial encounter; S80.01XA Contusion of right knee, initial encounter; V79.50XA Passenger on bus injured in collision with unspecified motor vehicles in traffic accident, initial encounter; Y92.410 Unspecified street and highway as the place of occurrence of the external cause; I11.0 Hypertensive heart disease with heart failure; I50.9 Heart failure, unspecified; I48.91 Unspecified atrial fibrillation; H33.21 Serous retinal detachment, right eye
CPT/HCPCS: 96372; 99283

== ENCOUNTER 2018-05-19 07:52 | Emergency (ER) | payer MEDICARE, MEDICAID ==
[~2018-05-19] VITALS: Ht 177.8 cm; Wt 104.3 kg
[2018-05-19] MEDS ORDERED: COLCHICINE25 GM MC (08:19)
[2018-05-19 08:31] VITALS: BP 137/119
[2018-05-19] MEDS ORDERED: Ketorolac 60mg Inj IM ONE (09:00)
--- NOTE | 2018-05-19 10:28 | Emergency Room Report ---
History of Present Illness General Chief Complaint: Pain Source: Patient Present Illness HPI This patient is well-known to [facility]. He states that he is here to show me all of his medications that he is on. He states he saw his primary care physician yesterday in [place]. He also has an appointment with Dr. Mendez today. He states he underwent lab tests yesterday and was told that his labs looked normal and fine. He has had increased swelling in his legs. He is on Lasix and had increased his dose yesterday at the recommendation of his primary care physician. He states he continues to have pain in his legs. He has an appointment with 2 physicians today. He denies shortness of breath or cough or congestion. He does not want any lab work as he states that it was done yesterday in [place]. He has no other complaints. Allergies: Coded Allergies: No Known Allergies (Unverified , 04/27/18) Patient History Past Medical History: see triage record, HTN, [place], CAD, CHF, AFib, renal disease Social History: Denies: smoking, alcohol use, drug use Reviewed Nursing Documentation: PMH: Agreed; PSxH: Agreed Nursing Documentation-PMH Past Medical History: No History, Except For Hx Cardiac Problems: Yes - afib, chf Hx Hypertension: Yes Hx Pacemaker: No - RETINAL DETACHMENT,RIGHT EYE Hx Asthma: No Hx COPD: No Hx Diabetes: No Hx Cancer: No Hx Gastrointestinal Problems: No Hx Dialysis: No - CRF Hx Neurological Problems: No - GOUT Hx Cerebrovascular Accident: No Hx Seizures: No Review of Systems All Other Systems: negative except mentioned in HPI Physical Exam Vital Signs Date Time Temp Pulse Resp B/P (MAP) Pulse Ox O2 Delivery O2 Flow Rate FiO2 05/19/18 08:05 97.5 48 18 137/119 100 Room Air Sp02 EP Interpretation: reviewed, normal General Appearance: no apparent distress, alert, GCS 15, non-toxic Head: normocephalic, atraumatic Eyes: bilateral eye normal inspection, bilateral eye PERRL ENT: hearing grossly normal, normal pharynx, no angioedema, normal voice Neck: full range of motion, supple/symm/no masses Respiratory: chest non-tender, lungs clear, normal breath sounds, no respiratory distress, no retraction, no accessory muscle use, speaking full sentences Cardiovascular #1: regular rate, rhythm, no edema Gastrointestinal: normal bowel sounds, non tender, soft, non-distended, no guarding, no rebound Rectal: deferred Musculoskeletal: back normal, gait/station normal, normal range of motion, swelling - BLE 2+edema with compression stocking in place. Neurologic: alert, oriented x3, responsive, motor strength/tone normal, sensory intact, speech normal Psychiatric: judgement/insight normal, memory normal, mood/affect normal, no suicidal/homicidal ideation Skin: normal color, no rash, warm/dry, well hydrated Medical Decision Making Diagnostic Impression: Primary Impression: Peripheral edema Additional Impression: Chronic pain ER Course This patient has a history of peripheral edema and right-sided heart failure. He is being followed closely by multiple physicians. He presents here for pain medication as per his usual visit. He has follow-up appointments with 2 physicians today. He declined lab tests. He agreed to Toradol injection. I instructed the patient to stop taking the Indocin, colchicine, allopurinol and prednisone. He does not have a gout flare currently and has peripheral edema consistent with his history of right-sided heart failure. He is instructed to continue Lasix. He is also instructed on the importance of following up closely with Dr. Mendez as planned today. No emergency medical condition is identified. The patient is given return precautions and follow-up instructions. Last Vital Signs Date Time Temp Pulse Resp B/P (MAP) Pulse Ox O2 Delivery O2 Flow Rate FiO2 05/19/18 08:31 97.5 48 18 137/119 100 Room Air Status: improved Disposition: HOME, SELF-CARE Condition: Improved Referrals: NON PHYSICIAN (PCP) Silvina See DO May 19, 2018 10:28
[2018-05-19 10:30] VITALS: BP 128/98
[2018-05-19 10:35] VITALS: BP 128/98
== END 2018-05-19 10:35 | disposition home or self-care (01) ==
LOC: EMR 08:27
DX: R60.0 Localized edema (principal); G89.29 Other chronic pain; M79.606 Pain in leg, unspecified; I11.0 Hypertensive heart disease with heart failure; I48.91 Unspecified atrial fibrillation; I50.9 Heart failure, unspecified; I25.2 Old myocardial infarction; I25.10 Atherosclerotic heart disease of native coronary artery without angina pectoris
CPT/HCPCS: 96372; 99283

== ENCOUNTER 2018-05-23 11:29 | Emergency (ER) | payer MEDICARE, MEDICAID ==
[~2018-05-23 11:29] MED LIST changes: +COLCHICINE25 GM MC
--- NOTE | 2018-05-23 11:53 | Emergency Room Report ---
History of Present Illness General Chief Complaint: To Be Triaged Present Illness Allergies: Coded Allergies: No Known Allergies (Unverified , 04/27/18) Nursing Documentation-PMH Hx Cardiac Problems: Yes - afib, chf Hx Hypertension: Yes Hx Pacemaker: No - RETINAL DETACHMENT,RIGHT EYE Hx Asthma: No Hx COPD: No Hx Diabetes: No Hx Cancer: No Hx Gastrointestinal Problems: No Hx Dialysis: No - CRF Hx Neurological Problems: No - GOUT Hx Cerebrovascular Accident: No Hx Seizures: No Medical Decision Making ER Course Please refer to triage note Patient left prior to being seen Status: other Disposition: LEFT W/OUT BEING SEEN Condition: Unknown Christie Celeste DO May 23, 2018 11:53
== END 2018-05-23 11:40 | disposition left against medical advice (07) ==
LOC: EMR 11:40
DX: M25.562 Pain in left knee (principal); M25.561 Pain in right knee; Z53.21 Procedure and treatment not carried out due to patient leaving prior to being seen by health care provider

== ENCOUNTER 2018-06-10 08:47 | Emergency (ER) | payer MEDICARE, MEDICAID ==
[~2018-06-10] VITALS: Ht 177.8 cm; Wt 104.3 kg
[2018-06-10 09:09] VITALS: BP 132/92
--- NOTE | 2018-06-10 09:44 | Emergency Room Report ---
History of Present Illness General Chief Complaint: Pain Source: Patient, Medical Record Present Illness HPI Mr. Lieberman is a very pleasant 67-year-old male with history of atrial fibrillation , congestive heart failure, and gout. For several weeks he has had leg swelling and bilateral foot pain. However he wants to focus on potential gout flare. He has pain both feet at the great toe. Mild to moderate in severity without radiation. Gradual onset. No trauma. Worse with ambulation. He has follow-up with his PCP this afternoon. Right now he desires Toradol. He denies chest pain. He denies some breath. He denies fever. He has several physicians in the [facility] system. One physician is Dr. Mendez. Allergies: Coded Allergies: No Known Allergies (Unverified , 04/27/18) Patient History Past Medical History: see triage record, old chart reviewed Past Surgical History: unable to obtain Pertinent Family History: other - not pertinent to today's presentation Social History: Denies: drug use Reviewed Nursing Documentation: PMH: Agreed; PSxH: Agreed Nursing Documentation-PMH Past Medical History: No History, Except For Hx Cardiac Problems: Yes - afib, chf Hx Hypertension: Yes Hx Pacemaker: No - RETINAL DETACHMENT,RIGHT EYE Hx Asthma: No Hx COPD: No Hx Diabetes: No Hx Cancer: No Hx Gastrointestinal Problems: No Hx Dialysis: No - CRF Hx Neurological Problems: No - GOUT Hx Cerebrovascular Accident: No Hx Seizures: No Review of Systems Constitutional: Denies: fever, malaise Respiratory: Denies: cough Cardiovascular: Denies: chest pain Gastrointestinal: Denies: abdominal pain All Other Systems: negative except mentioned in HPI Physical Exam Vital Signs Date Time Temp Pulse Resp B/P (MAP) Pulse Ox O2 Delivery O2 Flow Rate FiO2 06/10/18 08:59 97.3 79 18 132/92 100 Room Air Sp02 EP Interpretation: reviewed, normal General Appearance: no apparent distress, alert, GCS 15, non-toxic Head: normocephalic, atraumatic ENT: hearing grossly normal, normal pharynx, no angioedema, normal voice Neck: full range of motion, supple/symm/no masses Respiratory: chest non-tender, lungs clear, normal breath sounds, no rhonchi, no respiratory distress, no retraction, no accessory muscle use, speaking full sentences Cardiovascular #1: regular rate, rhythm, no gallop, no JVD, no murmur, no rub, edema - pitting edema in lower legs Gastrointestinal: normal bowel sounds, non tender, soft, non-distended, no guarding, no rebound Musculoskeletal: gait/station normal, normal range of motion, non-tender, other - no erythema or localized swelling in foot Neurologic: alert, oriented x3, responsive, motor strength/tone normal, sensory intact, speech normal Psychiatric: judgement/insight normal, memory normal, mood/affect normal, no suicidal/homicidal ideation Skin: normal color, no rash, warm/dry, well hydrated Medical Decision Making Diagnostic Impression: Primary Impression: Bilateral foot pain ER Course bilateral foot pain without physical exam findings to corroboate gout Exacerbation. No evidence of cellulitis. Patient ambulates comfortably. Given IM ketorolac discharged home. Last Vital Signs Date Time Temp Pulse Resp B/P (MAP) Pulse Ox O2 Delivery O2 Flow Rate FiO2 06/10/18 08:59 97.3 79 18 132/92 100 Room Air Disposition: HOME, SELF-CARE Condition: Stable Referrals: NOT CHOSEN IPA/,REFERRING (PCP) Mary Salcedo MD Jun 10, 2018 09:44
[2018-06-10] MEDS ORDERED: Ketorolac 60mg Inj IM ONE (09:45)
[2018-06-10 09:48] VITALS: BP 133/89
== END 2018-06-10 09:48 | disposition home or self-care (01) ==
LOC: EMR 09:15
DX: M10.9 Gout, unspecified (principal); I48.91 Unspecified atrial fibrillation; I11.0 Hypertensive heart disease with heart failure; I50.9 Heart failure, unspecified
CPT/HCPCS: 96372; 99283

== ENCOUNTER 2018-07-02 09:30 | Emergency (ER) | payer MEDICARE, MEDICAID ==
[~2018-07-02] VITALS: Ht 177.8 cm; Wt 104.3 kg
[2018-07-02 09:50] VITALS: BP 120/77
--- NOTE | 2018-07-02 09:52 | Emergency Room Report ---
History of Present Illness General Chief Complaint: Pain Source: Patient Present Illness HPI Patient presents with a gout attack. The left foot. He just took the bus from [place]. He's got edema. He was discharged 2 days ago from the hospital after 4 days hospitalization to treat his heart failure. He says electrolytes were good. The states he doesn't have any pain medication at home. Is a like taking pain medication because it causes constipation. He takes Colace for that. In the past he's received IM Dilaudid for the pain. The patient denies fever, chills, nausea, vomiting, diarrhea, chest pain, dyspnea. He describes the pain as excruciating I got sharp pressure radiating to his foot. 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 Reviewed Nursing Documentation: PMH: Agreed; PSxH: Agreed Nursing Documentation-PMH Past Medical History: No History, Except For Hx Cardiac Problems: Yes - afib, chf Hx Hypertension: Yes Hx Pacemaker: No - RETINAL DETACHMENT,RIGHT EYE Hx Asthma: No Hx COPD: No Hx Diabetes: No Hx Cancer: No Hx Gastrointestinal Problems: No Hx Dialysis: No - CRF Hx Neurological Problems: No - GOUT Hx Cerebrovascular Accident: No Hx Seizures: No Review of Systems All Other Systems: negative except mentioned in HPI Physical Exam Vital Signs Date Time Temp Pulse Resp B/P (MAP) Pulse Ox O2 Delivery O2 Flow Rate FiO2 07/02/18 09:33 85 20 120/77 99 Room Air Sp02 EP Interpretation: reviewed, normal General Appearance: well appearing, no apparent distress Head: normocephalic, atraumatic Eyes: bilateral eye other - dark glasses on ENT: hearing grossly normal, normal voice Neck: full range of motion, supple Respiratory: no respiratory distress, speaking full sentences Cardiovascular #1: regular rate, rhythm, edema Musculoskeletal: no calf tenderness, other - compression stockings. Has tenderness L 1st MTP without heat or inflammation Neurologic: alert, normal gait Psychiatric: mood/affect normal Skin: no rash Medical Decision Making Diagnostic Impression: Primary Impression: Podagra Additional Impression: Peripheral edema ER Course Patient presents with foot pain with history of gout. Differential includes cellulitis, gout, podagra strain, drug seeking amongst others. He reports that labs or recently done in [place]. Patient retreated with colchicine and Percocet here in the emergency department. Patient's vital signs are stable and patient is improved. Patient is stable for outpatient observation and treatment. At discharge he stated he has Tramadol at home (he initially stated he did not). He asked for a shot and Toradol was given. Last Vital Signs Date Time Temp Pulse Resp B/P (MAP) Pulse Ox O2 Delivery O2 Flow Rate FiO2 07/02/18 10:34 97.3 85 18 120/77 100 07/02/18 09:50 Room Air Status: improved Disposition: HOME, SELF-CARE Condition: Improved Scripts Lactulose (LACTULOSE*) 20 Gm/30 Ml Solution 30 ML ORAL BID PRN for Constipation, #240 ML 0 Refills Prov: Tim Gil MD 07/02/18 Tramadol Hcl* (ULTRAM*) 50 Mg Tablet 50 MG ORAL Q6H PRN for For Pain, #10 TAB 0 Refills Prov: Tim Gil MD 07/02/18 Tim Gil MD Jul 02, 2018 09:52
[2018-07-02] MEDS ORDERED: oxyCODONE HCL/Acetaminophen 5/325mg ORAL ONE (10:00)
[2018-07-02] MEDS ORDERED: TRAMADOL HCL50 MG ORAL (10:10)
[2018-07-02] MEDS ORDERED: LACTULOSE20 GM/301 ORAL (10:10)
[2018-07-02] MEDS ORDERED: Ketorolac 60mg Inj IM ONE (10:30)
[2018-07-02 10:34] VITALS: BP 120/77
== END 2018-07-02 10:38 | disposition home or self-care (01) ==
LOC: EMR 09:45
DX: M10.072 Idiopathic gout, left ankle and foot (principal); R60.9 Edema, unspecified; I48.91 Unspecified atrial fibrillation; I50.9 Heart failure, unspecified; I12.9 Hypertensive chronic kidney disease with stage 1 through stage 4 chronic kidney disease, or unspecified chronic kidney disease; N18.9 Chronic kidney disease, unspecified
CPT/HCPCS: 96372; 99283

== ENCOUNTER 2018-07-12 08:03 | Emergency (ER) | payer MEDICARE, MEDICAID ==
[~2018-07-12] VITALS: Ht 177.8 cm; Wt 104.3 kg
[~2018-07-12 08:03] MED LIST changes: +LACTULOSE20 GM/301 ORAL
--- NOTE | 2018-07-12 08:17 | NUR ---
ED Nurse Note: pt came from home complaining of SOB, per pt he is also experiencing pain due to gout 04/13. pt denies taking medication for gout.
[2018-07-12 08:33] VITALS: BP 108/80
[2018-07-12] MEDS ORDERED: dilTIAZem HCl 25mg/5ml Inj IVP ONE (09:00)
[2018-07-12 09:05] LABS: BASOPHILS % (AUTO) 2.1 % (0.0-2.0); EOSINOPHILS % (AUTO) 3.3 % (0.0-3.0); LYMPHOCYTES % (AUTO) 18.6 % (20.0-45.0); MEAN CORPUSCULAR VOLUME 90 FL (80-99); MONOCYTES % (AUTO) 9.8 % (1.0-10.0); NEUTROPHILS % (AUTO) 66.3 % (45.0-75.0); PLATELET COUNT 146 K/UL (150-450); RED BLOOD COUNT 3.77 M/UL (4.70-6.10); RED CELL DISTRIBUTION WIDTH 13.1 % (11.6-14.8); WHITE BLOOD COUNT 6.3 K/UL (4.8-10.8)
[2018-07-12 09:05] LABS: APPEARANCE,URINE CLEAR; BILIRUBIN, URINE NEGATIVE (NEGATIVE); GLUCOSE, URINE (UA) NEGATIVE (NEGATIVE); KETONES,URINE 1+ (NEGATIVE); LEUKOCYTE ESTERASE ,URINE NEGATIVE (NEGATIVE); NITRITE,URINE NEGATIVE (NEGATIVE); PH,URINE 5 (4.5-8.0); PROTEIN,URINE 2+ (NEGATIVE); UROBILINOGEN,URINE 1 MG/DL (0.0-1.0)
[2018-07-12 09:22] LABS: COLOR,URINE YELLOW
[2018-07-12] MEDS ORDERED: Norco 5mg/325mg tab ORAL ONE (09:30)
--- NOTE | 2018-07-12 09:30 | NUR ---
ED Nurse Note: pt refused [place]. per pt "i want morphine. norco makes me constipated". Will notify MD, and await new orders.
[2018-07-12 09:36] LABS: ANION GAP 8 mmol/L (5-15); BLOOD UREA NITROGEN 18 mg/dL (7-18); CALCIUM 9.9 MG/DL (8.5-10.1); CARBON DIOXIDE 25 MMOL/L (21-32); CHLORIDE 109 MMOL/L (98-107); CREATININE 1.6 MG/DL (0.55-1.30); POTASSIUM 4.2 MMOL/L (3.5-5.1); SODIUM 141 MMOL/L (136-145)
--- NOTE | 2018-07-12 09:45 | NUR ---
pt is ao x 4, with steady gait. pt is leaving AMA. per pt "i didnt get morphine, i have plans [place]. you guys are playing." Addendum: 07/12/18 at 0954 by PDELEON ED Nurse Note: pt is ao x 4, with steady gait. pt is leaving AMA. per pt "i didnt get morphine, i have plans to go to the courthouse. you guys are playing." notified.
[2018-07-12 09:49] LABS: ALANINE AMINOTRANSFERASE 20 U/L (12-78); ALBUMIN 2.8 G/DL (3.4-5.0); ALBUMIN/GLOBULIN RATIO 0.8 (1.0-2.7); ALKALINE PHOSPHATASE 90 U/L (46-116); ASPARTATE AMINO TRANSFERASE 28 U/L (15-37); BILIRUBIN,TOTAL 0.5 MG/DL (0.2-1.0); CKMB 1.2 NG/ML (0.0-3.6); CREATINE KINASE 102 U/L (26-308)
[2018-07-12 09:50] VITALS: BP 127/81
--- NOTE | 2018-07-12 09:50 | NUR ---
AMA: SEE AMA FORM.
--- NOTE | 2018-07-12 10:04 | Emergency Room Report ---
History of Present Illness General Chief Complaint: General Complaint Source: Patient Present Illness HPI This patient is well-known to [facility]. He has a history of atrial fibrillation and congestive heart failure. Has a history of gout. He presents today for concern of shortness of breath. He states that he left AGAINST MEDICAL ADVICE from [facility] yesterday. He states some of his medications were changed. He states he has felt more short of breath recently. He was admitted for congestive heart failure exacerbation. He denies chest pain. He states that he feels that his swelling in his legs are better than it had been. Has chronic pain. States that he did eat a Marcos hen from [employer] and a tuna sandwich. He states that he has been doing fluid restriction. He denies fever or chills. He denies nausea or vomiting. He denies headache or neck pain. He has no other complaints. 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,RIGHT EYE Hx Asthma: No Hx COPD: No Hx Diabetes: No Hx Cancer: No Hx Gastrointestinal Problems: No Hx Dialysis: No - CRF Hx Neurological Problems: No - GOUT Hx Cerebrovascular Accident: No Hx Seizures: No Review of Systems All Other Systems: negative except mentioned in HPI Physical Exam Vital Signs Date Time Temp Pulse Resp B/P (MAP) Pulse Ox O2 Delivery O2 Flow Rate FiO2 07/12/18 08:08 98.1 105 20 130/81 98 07/12/18 08:33 Room Air Sp02 EP Interpretation: reviewed, normal General Appearance: no apparent distress, alert, GCS 15, non-toxic Head: normocephalic, atraumatic Eyes: bilateral eye normal inspection, bilateral eye PERRL ENT: hearing grossly normal, normal pharynx, no angioedema, normal voice Neck: full range of motion, supple/symm/no masses Respiratory: chest non-tender, lungs clear, normal breath sounds, no respiratory distress, no retraction, no accessory muscle use, speaking full sentences Cardiovascular #1: regular rate, rhythm, no edema, edema - 2+pitting edema BLE and BUE Gastrointestinal: normal bowel sounds, non tender, soft, non-distended, no guarding, no rebound Rectal: deferred Musculoskeletal: back normal, gait/station normal, normal range of motion, non- tender Neurologic: alert, oriented x3, responsive, motor strength/tone normal, sensory intact, speech normal Psychiatric: judgement/insight normal, memory normal, mood/affect normal, no suicidal/homicidal ideation Skin: normal color, no rash, warm/dry, well hydrated Medical Decision Making Diagnostic Impression: Primary Impression: CHF (congestive heart failure) Additional Impressions: Drug-seeking behavior Atrial fibrillation ER Course On arrival, the patient had atrial fibrillation with intermittent rapid ventricular response. I suspect that is the etiology of his shortness of breath. During ED course he was given diltiazem. He had significant improvement in his heart rate. He did remain in atrial fibrillation. There was no evidence of left-sided heart failure. However, the patient swelling in his extremities is indicative of ongoing right-sided heart failure. Patient was demanding morphine, however, he has no acute illness and I offered oral Edison but he declined. I was unable to give Toradol or other NSAIDs secondary to the patient's worsening chronic kidney disease. Prior to finishing this patient's workup he left AGAINST MEDICAL ADVICE. He states that he will go see his primary care physician Dr. Vilma Mendez. This patient left AGAINST MEDICAL ADVICE. Laboratory Tests Test 07/12/18 08:30 07/12/18 08:54 Urine Color Yellow Urine Appearance Clear Urine pH 5 (4.5-8.0) Urine Specific [place] 1.020 (1.005-1.035) Urine Protein 2+ (NEGATIVE) H Urine Glucose (UA) Negative (NEGATIVE) Urine Ketones 1+ (NEGATIVE) H Urine Blood 3+ (NEGATIVE) H Urine Nitrite Negative (NEGATIVE) Urine Bilirubin Negative (NEGATIVE) Urine Urobilinogen 1 MG/DL (0.0-1.0) H Urine Leukocyte Esterase Negative (NEGATIVE) Urine RBC 2-4 /HPF (0 - 0) H Urine WBC 0-2 /HPF (0 - 0) Urine Squamous Epithelial Cells None /LPF (NONE/OCC) Urine Bacteria Occasional /HPF (NONE) Urine Opiates Screen Negative (NEGATIVE) Urine Barbiturates Screen Negative (NEGATIVE) Phencyclidine (PCP) Screen Negative (NEGATIVE) Urine Amphetamines Screen Negative (NEGATIVE) Urine Benzodiazepines Screen Negative (NEGATIVE) Urine Cocaine Screen Negative (NEGATIVE) Urine Marijuana (THC) Screen Negative (NEGATIVE) White Blood Count 6.3 K/UL (4.8-10.8) Red Blood Count 3.77 M/UL (4.70-6.10) L Hemoglobin 11.0 G/DL (14.2-18.0) L Hematocrit 34.0 % (42.0-52.0) L Mean Corpuscular Volume 90 FL (80-99) Mean Corpuscular Hemoglobin 29.2 PG (27.0-31.0) Mean Corpuscular Hemoglobin Concent 32.4 G/DL (32.0-36.0) Red Cell Distribution Width 13.1 % (11.6-14.8) Platelet Count 146 K/UL (150-450) L Mean Platelet Volume 8.7 FL (6.5-10.1) Neutrophils (%) (Auto) 66.3 % (45.0-75.0) Lymphocytes (%) (Auto) 18.6 % (20.0-45.0) L Monocytes (%) (Auto) 9.8 % (1.0-10.0) Eosinophils (%) (Auto) 3.3 % (0.0-3.0) H Basophils (%) (Auto) 2.1 % (0.0-2.0) H Prothrombin Time 11.0 SEC (9.30-11.50) Prothrombin Time INR 1.0 (0.9-1.1) PTT 31 SEC (23-33) Sodium Level 141 MMOL/L (136-145) Potassium Level 4.2 MMOL/L (3.5-5.1) Chloride Level 109 MMOL/L (98-107) H Carbon Dioxide Level 25 MMOL/L (21-32) Anion Gap 8 mmol/L (5-15) Blood Urea Nitrogen 18 mg/dL (7-18) Creatinine 1.6 MG/DL (0.55-1.30) H Estimate Glomerular Filtration Rate 52.5 mL/min (>60) Glucose Level 71 MG/DL (74-106) L Calcium Level 9.9 MG/DL (8.5-10.1) Total Bilirubin 0.5 MG/DL (0.2-1.0) Aspartate Amino Transferase (AST) 28 U/L (15-37) Alanine Aminotransferase (ALT) 20 U/L (12-78) Alkaline Phosphatase 90 U/L (46-116) Total Creatine Kinase 102 U/L (26-308) Creatine Kinase MB 1.2 NG/ML (0.0-3.6) Creatine Kinase MB Relative Index 1.1 Troponin I 0.021 ng/mL (0.000-0.056) Pro-B-Type Natriuretic Peptide 3423 pg/mL (0-125) H Total Protein 6.3 G/DL (6.4-8.2) L Albumin 2.8 G/DL (3.4-5.0) L Globulin 3.5 g/dL Albumin/Globulin Ratio 0.8 (1.0-2.7) L EKG Diagnostic Results Rate: other - 120's Rhythm: other - A.fib ST Segments: other - NSST Rhythm Strip Diag. Results EP Interpretation: yes Rate: 120's Rhythm: other - A.fib Chest X-Ray Diagnostic Results Chest X-Ray Diagnostic Results : Chest X-Ray Ordered: Yes # of Views/Limited/Complete: 1 View Indication: Shortness of Breath EP Interpretation: Yes Interpretation: no consolidation, no effusion, no pneumothorax, no acute cardiopulmonary disease, other - Unchanged from comparison CXR Impression: No acute disease Electronically Signed by: Silvina See DO Last Vital Signs Date Time Temp Pulse Resp B/P (MAP) Pulse Ox O2 Delivery O2 Flow Rate FiO2 07/12/18 09:08 90 108/80 07/12/18 08:33 22 98 Room Air 07/12/18 08:08 98.1 Disposition: AGAINST MEDICAL ADVICE Condition: Stable Referrals: NON PHYSICIAN (PCP) Silvina See DO Jul 12, 2018 10:04
--- NOTE | 2018-07-12 12:43 | Diagnostic Imaging Report ---
Indication: Dyspnea Comparison: 01/07/2018 A single view chest radiograph was obtained. Findings: There is mild parenchymal density at the right lung base likely atelectasis or scarring, not significantly changed from the last study. The heart is enlarged. Pulmonary vascularity is within normal limits. The aorta is enlarged. IMPRESSION: No change from the prior examination. Mild atelectasis versus scarring at the right lung base
--- NOTE | 2018-07-13 16:31 | Cardiology Report ---
APPROVED REPORT EKG Measurement Heart [id number] Atrial fibrillation with rapid ventricular response Nonspecific T wave abnormality Abnormal ECG
== END 2018-07-12 09:50 | disposition left against medical advice (07) ==
LOC: EMR 08:28
DX: I13.0 Hypertensive heart and chronic kidney disease with heart failure and stage 1 through stage 4 chronic kidney disease, or unspecified chronic kidney disease (principal); N18.9 Chronic kidney disease, unspecified; I50.9 Heart failure, unspecified; I25.2 Old myocardial infarction; I25.10 Atherosclerotic heart disease of native coronary artery without angina pectoris; I48.91 Unspecified atrial fibrillation; Z76.5 Malingerer [conscious simulation]
CPT/HCPCS: 36415; 71045; 80053; 80307; 81003; 82550; 82553; 83880; 84484; 85025; 85610; 85730; 93005; 96374; 99284

== ENCOUNTER 2018-07-26 23:16 | Emergency (ER) | payer MEDICARE, MEDICAID ==
[~2018-07-26] VITALS: Ht 177.8 cm; Wt 99.8 kg
[2018-07-26 23:35] VITALS: BP 134/88
[2018-07-26 23:40] VITALS: BP 134/88
[2018-07-26] MEDS ORDERED: ASPIR 8181 MG ORAL (23:40)
--- NOTE | 2018-07-26 23:40 | NUR ---
ED Nurse Note: pt walked in ED c/o gout and lower extremity pain. pt states he came in before his pain got worse. Pt AA&ox4, gcs=15, skin warm and dry, resp even and unlaboed, ambulates w/ steady gait. will cont monitor
--- NOTE | 2018-07-27 00:54 | Emergency Room Report ---
History of Present Illness General Chief Complaint: Pain Source: Patient, Medical Record Present Illness HPI Is a 67-year-old male with a history of hypertension and CHF. Also history of gout. He presents with chief complaint of gouty attack. He complaining of joint pain to his lower extremity. He said his been ongoing few days. He's been to numerous hospitals for him here in [facility]. He goes every few days. He complaining of 10 out of 10 pain. Once Ultram. Denies any fever chills denies any nausea vomiting. He has narcotic prescription for multiple hospitals/doctors on cures. Nothing made it better. Nothing made it worse. 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,RIGHT EYE Hx Asthma: No Hx COPD: No Hx Diabetes: No Hx Cancer: No Hx Gastrointestinal Problems: No Hx Dialysis: No - CRF Hx Neurological Problems: No - GOUT Hx Cerebrovascular Accident: No Hx Seizures: No Review of Systems Eye: Denies: eye pain, blurred vision ENT: Denies: ear pain, nose congestion, throat swelling Respiratory: Denies: cough, shortness of breath Cardiovascular: Denies: chest pain, palpitations Gastrointestinal: Denies: abdominal pain, diarrhea, nausea, vomiting Musculoskeletal: Reports: gout, joint pain; Denies: back pain Skin: Denies: rash Neurological: Denies: headache, numbness Endocrine: Denies: increased thirst, increased urine Hematologic/Lymphatic: Denies: easy bruising All Other Systems: negative except mentioned in HPI Physical Exam Vital Signs Date Time Temp Pulse Resp B/P (MAP) Pulse Ox O2 Delivery O2 Flow Rate FiO2 07/26/18 23:35 97.9 86 16 134/88 99 Room Air vitals normal Sp02 EP Interpretation: reviewed, normal General Appearance: well appearing, no apparent distress, alert, other - Patient sleeping comfortably Head: normocephalic, atraumatic Eyes: bilateral eye PERRL, bilateral eye EOMI ENT: hearing grossly normal, normal pharynx Neck: full range of motion, supple, no meningismus Respiratory: chest non-tender, lungs clear, normal breath sounds Cardiovascular #1: regular rate, rhythm, no murmur Gastrointestinal: normal bowel sounds, non tender, no mass, no organomegaly, no bruit, non-distended Musculoskeletal: back normal, gait/station normal, normal range of motion, swelling - 1+ pitting edema, chronic Psychiatric: mood/affect normal Skin: warm/dry Medical Decision Making Diagnostic Impression: Primary Impression: Drug-seeking behavior Additional Impression: Peripheral edema ER Course Patient presents with chronic pain. I suspect the narcotic seeking behavior. No evidence of acute pain. We'll discharge home. Told patient to take his medication. Last Vital Signs Date Time Temp Pulse Resp B/P (MAP) Pulse Ox O2 Delivery O2 Flow Rate FiO2 07/26/18 23:35 97.9 86 16 134/88 99 Room Air Status: improved Disposition: HOME, SELF-CARE Condition: Stable Additional Instructions: Follow-up with your doctor in 7 days. Take your medicine. Return if worse. Rajinder Coyle MD Jul 27, 2018 00:54
[2018-07-27] MEDS ORDERED: Ketorolac 30mg Inj IM ONE (01:00)
--- NOTE | 2018-07-27 01:15 | NUR ---
Note vianey in EDM - 07/27/18 at 0132 by KATARINA ED Nurse Note: pt discharge instruction provided w/ prescription, pt wristband removed, pt education done via discussion and handout, pt advised to follow up with pcp or return to ed if s/s worsen or new s/s develop, pt verbalized understanding and agrees with plan, all belongings left with pt.
--- NOTE | 2018-07-27 01:15 | NUR ---
ED Nurse Note: pt discharge instruction provided, pt wristband removed, pt education done via discussion and handout, pt advised to follow up with pcp or return to ed if s/s worsen or new s/s develop, pt verbalized understanding and agrees with plan, all belongings left with pt.
[2018-10-02] MEDS ORDERED: FUROSEMIDE40 MG ORAL ×2 (12:39)
[2018-12-22] MEDS ORDERED: FUROSEMIDE40 MG ORAL ×2 (18:30)
[2019-03-22] MEDS ORDERED: ZITHROMAX250 MG ORAL ×2 (07:51)
== END 2018-07-27 01:15 | disposition home or self-care (01) ==
LOC: EMR 23:59
DX: Z76.5 Malingerer [conscious simulation] (principal); G89.29 Other chronic pain; M10.9 Gout, unspecified; I11.0 Hypertensive heart disease with heart failure; I50.9 Heart failure, unspecified; I48.91 Unspecified atrial fibrillation
CPT/HCPCS: 96372; 99283; J1885

== ENCOUNTER 2018-08-02 09:23 | Emergency (ER) | payer MEDICARE, MEDICAID ==
[~2018-08-02] VITALS: Ht 177.8 cm; Wt 99.8 kg
[~2018-08-02 09:23] MED LIST changes: +ASPIR 8181 MG ORAL
--- NOTE | 2018-08-02 09:35 | NUR ---
ED Nurse Note: patient walked into ED c/o bilateral leg swelling and pain 04/13 started this morning 3am ambulated in to ER due to bilateral leg pain 10 since this morning 3am.
[2018-08-02] MEDS ORDERED: FUROSEMIDE40 MG ORAL (09:45)
[2018-08-02] MEDS ORDERED: NORCO 5-325 TA1 EACH ORAL (09:45)
[2018-08-02] MEDS ORDERED: Ketorolac 60mg Inj IM ONE (10:00)
[2018-08-02 10:18] VITALS: BP 131/91
[2018-08-02 10:19] VITALS: BP 131/91
--- NOTE | 2018-08-02 10:22 | NUR ---
ED Nurse Note: pt was cleared for discharge by ERMD, discharge instrcution/paper/prescription explained and patient verbalized understanding. ID band removed. pt aox4. pt able to walk with steady gait. pt left the ed with all belongings.
--- NOTE | 2018-08-02 16:09 | Emergency Room Report ---
History of Present Illness General Chief Complaint: Pain Source: Patient Present Illness HPI Patient has a history of multiple visits or emergency department. Patient has chronic gout. Patient also has history of cardiac disease. Patient presents emergency department today requesting pain medications for his gout exacerbation as well as medications for his CHF. Review of medical records and cures report shows that patient resists the hospital frequently and has his narcotic pain medications filled frequently. No other complaints are noted. Patient states that he's having a gouty attack. States that he's running low on his Lasix and is requesting med refill.No other modifying factors. No other associated signs and symptoms. No other complaints were noted. [place] any shortness of breath chest pain nausea vomiting diarrhea or chills. Denies any trauma. 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,RIGHT EYE Hx Asthma: No Hx COPD: No Hx Diabetes: No Hx Cancer: No Hx Gastrointestinal Problems: No Hx Dialysis: No - CRF Hx Neurological Problems: No - GOUT Hx Cerebrovascular Accident: No Hx Seizures: No Review of Systems All Other Systems: negative except mentioned in HPI Physical Exam Vital Signs Date Time Temp Pulse Resp B/P (MAP) Pulse Ox O2 Delivery O2 Flow Rate FiO2 08/02/18 09:27 98.1 95 16 131/91 98 Room Air Sp02 EP Interpretation: reviewed, normal General Appearance: normal inspection, well appearing, no apparent distress, alert Head: atraumatic ENT: normal ENT inspection, hearing grossly normal, normal voice Neck: normal inspection, full range of motion, supple, no bony tend Respiratory: normal inspection, lungs clear, normal breath sounds, no respiratory distress, no retraction, no wheezing Cardiovascular #1: regular rate, rhythm, no edema Gastrointestinal: normal inspection, normal bowel sounds, non tender, soft, no guarding, no hernia Genitourinary: no CVA tenderness Musculoskeletal: normal inspection, back normal, normal range of motion Neurologic: normal inspection, alert, responsive, speech normal Psychiatric: normal inspection, judgement/insight normal, mood/affect normal Skin: normal inspection, normal color, no rash Medical Decision Making Diagnostic Impression: Primary Impression: Gout attack Additional Impressions: CHF (congestive heart failure) Opiate dependence ER Course Patient presents emergency department today complaining of diffuse joint pain from a gout flare. Review of medical records however show the patient does have multiple visits and multiple narcotic pain medications filled. Differential diagnoses include opiate dependence, drug-seeking behavior, gout attack. Patient also has history of CHF and states that he is running low on Lasix. Patient's exam does not show any evidence of acute CHF. Therefore we will refill patient's Lasix at this time. I informed patient that I am uncomfortable refilling his narcotic pain medication given his multiple visits and recent narcotic medication refill. Patient states that he's comfortable which is receiving a pain shot and is okay with not receiving outpatient narcotic pain medications. Patient was agreeable to receiving one dose of Toradol. Patient was given one dose of Toradol recommend outpatient follow- up.Patient is advised to follow up with primary doctor in 2-3 days and return the emergency room for any worsening symptoms and as needed. Last Vital Signs Date Time Temp Pulse Resp B/P (MAP) Pulse Ox O2 Delivery O2 Flow Rate FiO2 08/02/18 10:19 98.1 95 16 131/91 98 Room Air Status: improved Disposition: HOME, SELF-CARE Condition: Stable Scripts Furosemide* (LASIX*) 40 Mg Tablet 40 MG ORAL TWICE A DAY for 14 Days, TAB 0 Refills Prov: Robert Felder MD 08/02/18 Referrals: NOT CHOSEN IPA/,REFERRING (PCP) Patient Instructions: Gout, [id number] Robert Felder MD Aug 02, 2018 16:09
== END 2018-08-02 10:17 | disposition home or self-care (01) ==
LOC: EMR 10:10
DX: M10.9 Gout, unspecified (principal); I11.0 Hypertensive heart disease with heart failure; I50.9 Heart failure, unspecified; I48.91 Unspecified atrial fibrillation; F11.20 Opioid dependence, uncomplicated
CPT/HCPCS: 96372; 99283

== ENCOUNTER 2018-08-04 08:25 | Emergency (ER) | payer MEDICARE, MEDICAID ==
[~2018-08-04] VITALS: Ht 177.8 cm; Wt 104.3 kg
[~2018-08-04 08:25] MED LIST changes: +FUROSEMIDE40 MG ORAL
[2018-08-04 08:53] VITALS: BP 127/83
--- NOTE | 2018-08-04 08:55 | NUR ---
ED Nurse Note:pt. came with c/o chronic gout pain in fis feet
[2018-08-04] MEDS ORDERED: traMADol 50mg tab ORAL ONE (09:15)
[2018-08-04] MEDS ORDERED: Morphine Sulfate 4mg/ml Inj (IV/IM USE ONLY) IM ONE (09:15)
--- NOTE | 2018-08-04 09:15 | Emergency Room Report ---
History of Present Illness General Chief Complaint: Pain Source: Patient, Medical Record Present Illness HPI 67-year-old male with history of gout presents with what he complains as a gout pain flare, bilateral first metatarsal joint pain radiating upwards, he reports partial relief with tramadol at home and steroids, he reports he does not tolerate cultures seen well, and denies any chest pain, shortness of breath, calf pain, fevers, falls, injuries, any other complaints. Allergies: Coded Allergies: No Known Allergies (Unverified , 08/02/18) Patient History Past Medical History: see triage record Reviewed Nursing Documentation: PMH: Agreed; PSxH: Agreed Nursing Documentation-PMH Hx Cardiac Problems: Yes - afib, chf Hx Hypertension: Yes Hx Pacemaker: No - RETINAL DETACHMENT,RIGHT EYE Hx Asthma: No Hx COPD: No Hx Diabetes: No Hx Cancer: No Hx Gastrointestinal Problems: No Hx Dialysis: No - CRF Hx Neurological Problems: No - GOUT Hx Cerebrovascular Accident: No Hx Seizures: No Review of Systems All Other Systems: negative except mentioned in HPI Physical Exam Vital Signs Date Time Temp Pulse Resp B/P (MAP) Pulse Ox O2 Delivery O2 Flow Rate FiO2 08/04/18 08:27 97.9 100 19 127/83 98 Room Air Sp02 EP Interpretation: reviewed, normal General Appearance: no apparent distress, alert, non-toxic Head: normocephalic Eyes: bilateral eye normal inspection, bilateral eye PERRL, bilateral eye EOMI ENT: normal ENT inspection, hearing grossly normal, normal pharynx, no angioedema, normal voice, moist mucus membranes Neck: normal inspection, full range of motion, supple, supple/symm/no masses Respiratory: chest non-tender, lungs clear, normal breath sounds, chest symmetrical, palpation of chest normal Cardiovascular #1: normal peripheral pulses, regular rate, rhythm, edema - 2+ bilateral lower extremity edema to knees Cardiovascular #2: 2+ radial (R), 2+ radial (L) Gastrointestinal: normal inspection, non tender, soft, no mass, no guarding, no rebound Rectal: deferred Genitourinary: normal inspection, no CVA tenderness Musculoskeletal: back normal, gait/station normal, normal range of motion, non- tender, no calf tenderness Neurologic: alert, responsive, handkerchief sample clerk III-XII nml as tested, motor strength/tone normal, sensory intact, speech normal Psychiatric: judgement/insight normal, memory normal, mood/affect normal Skin: normal color, no rash, warm/dry, normal turgor Lymphatic: no adenopathy Medical Decision Making Last Vital Signs Date Time Temp Pulse Resp B/P (MAP) Pulse Ox O2 Delivery O2 Flow Rate FiO2 08/04/18 08:53 97.9 89 19 127/83 98 Room Air Referrals: NON PHYSICIAN (PCP) TROY WHITMORE M.D Aug 04, 2018 09:15
[2018-08-04 09:42] VITALS: BP 127/83
--- NOTE | 2018-08-04 09:43 | NUR ---
ED Nurse Note:pt. received pain meds then his d/c instructions and left ER with steady gait
== END 2018-08-04 10:00 | disposition home or self-care (01) ==
LOC: EMR 08:59
DX: M10.9 Gout, unspecified (principal); I48.91 Unspecified atrial fibrillation; I13.0 Hypertensive heart and chronic kidney disease with heart failure and stage 1 through stage 4 chronic kidney disease, or unspecified chronic kidney disease; I50.9 Heart failure, unspecified; N18.9 Chronic kidney disease, unspecified
CPT/HCPCS: 96372; 99283; J2270

== ENCOUNTER 2018-08-08 07:35 | Emergency (ER) | payer MEDICARE, MEDICAID ==
[~2018-08-08] VITALS: Ht 177.8 cm; Wt 99.8 kg
[2018-08-08 07:45] VITALS: BP 125/92
--- NOTE | 2018-08-08 07:54 | NUR ---
ED Nurse Note: Pt c/o bilateral knee pain that radiates down to his legs. Has hx of gout. VSS.
[2018-08-08] MEDS ORDERED: Ketorolac 60mg Inj IM ONE (08:30)
[2018-08-08] MEDS ORDERED: LIDODERM700 M1 TOPIC (08:38)
--- NOTE | 2018-08-08 08:38 | Emergency Room Report ---
History of Present Illness General Chief Complaint: Pain Source: Patient Present Illness HPI This patient is well-known to [facility]. The patient has a history of chronic lower extremity edema/CHF and supposedly has a history of gouty arthritis. He presents to many emergency departments between [place] and [place]. The patient states he has new shoes that fit him really well and that his legs are the least swollen that they have been in a very long time. He is very pleased with the progress he is made reducing his leg edema. He continues to wear compressive stockings and is taking his Lasix. He is following up with his primary care physician regularly. He states he underwent blood work last week. He presents today because he currently does not have a car and has been walking a lot. He states that his right knee is bothering him. He states the right knee hurts more when he is going up or down stairs. He denies swelling. He denies fever or chills. He denies nausea or vomiting. He denies chest pain or shortness of breath. He denies abdominal pain. He denies trauma. He has no other complaints. Allergies: Coded Allergies: No Known Allergies (Unverified , 08/08/18) Patient History Past Medical History: see triage record, HTN, CHF, renal disease, other - Gout Social History: Denies: smoking, alcohol use, drug use Reviewed Nursing Documentation: PMH: Agreed; PSxH: Agreed Nursing Documentation-PMH Past Medical History: No History, Except For Hx Cardiac Problems: Yes - afib, chf Hx Hypertension: Yes Hx Pacemaker: No - RETINAL DETACHMENT,RIGHT EYE Hx Asthma: No Hx COPD: No Hx Diabetes: No Hx Cancer: No Hx Gastrointestinal Problems: No Hx Dialysis: No - CRF Hx Neurological Problems: No - GOUT Hx Cerebrovascular Accident: No Hx Seizures: No Review of Systems All Other Systems: negative except mentioned in HPI Physical Exam Vital Signs Date Time Temp Pulse Resp B/P (MAP) Pulse Ox O2 Delivery O2 Flow Rate FiO2 08/08/18 07:45 97.5 80 16 125/92 100 Room Air Sp02 EP Interpretation: reviewed, normal General Appearance: no apparent distress, alert, GCS 15, non-toxic Head: normocephalic, atraumatic ENT: hearing grossly normal, normal pharynx, no angioedema, normal voice Neck: full range of motion, supple/symm/no masses Respiratory: no respiratory distress, no retraction, no accessory muscle use, speaking full sentences Rectal: deferred Musculoskeletal: back normal, gait/station normal, normal range of motion, other - Normal Knee exam bilaterally. No R. knee swelling, erythema or effusion. Neurologic: alert, oriented x3, responsive, motor strength/tone normal, sensory intact, speech normal Psychiatric: judgement/insight normal, memory normal, mood/affect normal, no suicidal/homicidal ideation Skin: normal color, no rash, warm/dry, well hydrated Medical Decision Making Diagnostic Impression: Primary Impression: Knee pain Additional Impression: Arthralgia ER Course This patient has right knee pain. Examination of the patient's knee shows no evidence of septic joint. I also doubt a gout attack at this time. The patient does have a history of gout and likely has arthritic changes at baseline. I did give the patient topical Lidoderm patch. I also gave IM Toradol. The patient's renal function has been stable for many years. Patient has many prescriptions from different pharmacies and hospitals on the [employer] it. I did not feel that narcotics would be appropriate from the emergency department. The patient states he will see his primary care physician Dr. Mendez this afternoon. Any narcotics should be obtained by the patient's primary care physician. I will also give the patient a prescription for the lidocaine patches as this is likely a more appropriate pain control medication for arthritis. The patient was also instructed that he should discuss possible evaluation by orthopedics and referral from his primary care physician. Overall , the patient's evaluation is benign and reassuring. I do not suspect an emergency medical condition. The patient is given close return precautions and follow-up instructions. Last Vital Signs Date Time Temp Pulse Resp B/P (MAP) Pulse Ox O2 Delivery O2 Flow Rate FiO2 08/08/18 07:45 97.5 80 16 125/92 100 Room Air Status: improved Disposition: HOME, SELF-CARE Condition: Improved Silvina See DO Aug 08, 2018 08:37
[2018-08-08 08:50] VITALS: BP 128/87
--- NOTE | 2018-08-08 08:50 | NUR ---
ED Nurse Note: Pt cleared by HealthCare provider for discharge. ACI/prescription given and explained to pt and verbalized understanding of teachings provided. All medical devices such as ID band removed. Pt is AAO x4, ambulatory and left with all personal belongings.
== END 2018-08-08 08:50 | disposition home or self-care (01) ==
LOC: EMR 08:45
DX: M25.561 Pain in right knee (principal); I11.0 Hypertensive heart disease with heart failure; I50.9 Heart failure, unspecified; I48.91 Unspecified atrial fibrillation
CPT/HCPCS: 96372; 99283

== ENCOUNTER 2018-08-17 22:19 | Emergency (ER) | payer MEDICARE, MEDICAID ==
[~2018-08-17] VITALS: Ht 177.8 cm; Wt 99.8 kg
[~2018-08-17 22:19] MED LIST changes: +LIDODERM700 M1 TOPIC
--- NOTE | 2018-08-17 22:31 | NUR ---
ED Nurse Note: Pt states his toes, kness, joints painful 10/10 for 1 day. Pt just DC from [facility]. Pt also c/o both arms have rash. pt is able to ambulte. pt states he has edema on both legs but skin in non pitting. pt vital signs are within normal limits. pt is ana maria to ambulate with no complications. pt repsritory status is within normal limits.
[2018-08-17 22:38] VITALS: BP 129/98
[2018-08-18 00:35] VITALS: BP 128/95
[2018-08-18 00:44] VITALS: BP 128/95
--- NOTE | 2018-08-18 00:45 | NUR ---
ED Nurse Note: Pt cleared by Health Care Provider for discharge. DC instructions/prescriptions given and explained to pt and verbalized understanding of teachings. All medical devices such as ID band removed. Pt AAO x4, ambulatory and left with all personal belongings. pt is instructed to follow up with primary MD as soon as possible. pt is insturcted to return and seek medical attention if reoccurance of symptoms. pt has left with all DC notes and has been able to teach back all instructions.
--- NOTE | 2018-08-18 04:12 | Emergency Room Report ---
History of Present Illness General Chief Complaint: Pain Source: Patient Present Illness HPI Patient presents with complaints of itching of his skin Reports right-sided knee pain Patient reports that he was recently discharged from the hospital and had significant amount of fluid taken off his body Denies any chest pain or shortness of breath denies any vomiting Patient requesting symptomatic relief from itching along with lidocaine patch for the right knee Allergies: Coded Allergies: No Known Allergies (Unverified , 08/08/18) Patient History Past Medical History: see triage record Pertinent Family History: none Reviewed Nursing Documentation: PMH: Agreed; PSxH: Agreed Nursing Documentation-PMH Hx Cardiac Problems: Yes - afib, chf Hx Hypertension: Yes Hx Pacemaker: No - RETINAL DETACHMENT,RIGHT EYE Hx Asthma: No Hx COPD: No Hx Diabetes: No Hx Cancer: No Hx Gastrointestinal Problems: No Hx Dialysis: No - CRF Hx Neurological Problems: No - GOUT Hx Cerebrovascular Accident: No Hx Seizures: No Review of Systems All Other Systems: negative except mentioned in HPI Physical Exam Vital Signs Date Time Temp Pulse Resp B/P (MAP) Pulse Ox O2 Delivery O2 Flow Rate FiO2 08/17/18 22:25 99.0 67 18 132/104 96 Room Air Sp02 EP Interpretation: reviewed, normal General Appearance: well appearing, no apparent distress Head: normocephalic, atraumatic Eyes: bilateral eye PERRL, bilateral eye EOMI ENT: normal pharynx Neck: full range of motion, supple Respiratory: lungs clear Cardiovascular #1: regular rate, rhythm Gastrointestinal: non tender Musculoskeletal: other - Trigger finger on the right ring finger Neurologic: alert, oriented x3 Skin: normal color, no rash Lymphatic: no adenopathy Medical Decision Making Diagnostic Impression: Primary Impression: Gout ER Course Patient was provided with lidocaine patch as requested I again raise my concerns regarding his multiple visits to the emergency room Patient reports that he is attempting improved outpatient care and will return with any changes Last Vital Signs Date Time Temp Pulse Resp B/P (MAP) Pulse Ox O2 Delivery O2 Flow Rate FiO2 08/18/18 00:44 98.8 72 17 128/95 99 Room Air Status: improved Disposition: HOME, SELF-CARE Condition: Improved Referrals: NOT CHOSEN IPA/MD,REFERRING (PCP) Patient Instructions: Gout, [id number] Additional Instructions: Patient is provided with the discharge instructions notified to follow up with primary doctor in the next 2-3 days otherwise return to the er with any worsening symptoms. Please note that this report is being documented using DRAGON technology. This can lead to erroneous entry secondary to incorrect interpretation by the dictating instrument. Christie Celeste DO Aug 18, 2018 04:12
== END 2018-08-18 00:45 | disposition home or self-care (01) ==
LOC: EMR 23:00
DX: M10.9 Gout, unspecified (principal); I11.0 Hypertensive heart disease with heart failure; I50.9 Heart failure, unspecified; I48.92 Unspecified atrial flutter
CPT/HCPCS: 99282

== ENCOUNTER 2018-08-20 18:58 | Inpatient (IN) | payer MEDICARE, MEDICAID ==
[~2018-08-20] VITALS: Ht 177.8 cm; Wt 90.4 kg
[2018-08-20 19:38] VITALS: BP 107/80
--- NOTE | 2018-08-20 19:40 | NUR ---
ER Nurse Note: Pt came from home c/o bilateral leg swelling and pain since a week ago. On assesement; bilateral lower extremities swollen, +2 pitting edema. Full range of motion on all extremities; cap refill less than 3 seconds on all extremities. Pt had difficulty walking. Pt denies chest pain, shortness of breath. Pt a&ox4, VSS, no signs of distress. ERMD at pt side; will continue to montior.
[2018-08-20] MEDS ORDERED: Morphine Sulfate 4mg/ml Inj (IV USE ONLY) IVP ONE (19:45)
--- NOTE | 2018-08-20 20:39 | Diagnostic Imaging Report ---
EXAM: XR Chest, 1 View CLINICAL HISTORY: DYSPNEA TECHNIQUE: Frontal view of the chest. COMPARISON: 07/12/2018 FINDINGS: Lungs: Unremarkable. No consolidation. Pleural space: Unremarkable. No pneumothorax. Heart: Stable cardiomediastinal silhouette. Mediastinum: See above. Bones/joints: No acute osseous abnormality. Tubes, lines and devices: Telemetry leads overlie the patient. IMPRESSION: No acute cardiopulmonary process.
[2018-08-20] MEDS ORDERED: Morphine Sulfate 4mg/ml Inj (IV USE ONLY) IM ONE (20:45)
--- NOTE | 2018-08-20 21:00 | NUR ---
ER Nurse Note: No IV established; attempted by primary nurse, RN and charge nurse. ERMD notifed and orders were changed to PO and IM. Will continue to kirsten.
[2018-08-20 21:03] LABS: BASOPHILS % (AUTO) 1.8 % (0.0-2.0); HEMATOCRIT 41.7 % (42.0-52.0); HEMOGLOBIN 13.4 G/DL (14.2-18.0); LYMPHOCYTES % (AUTO) 22.2 % (20.0-45.0); MEAN CORPUSCULAR VOLUME 90 FL (80-99); MONOCYTES % (AUTO) 14.1 % (1.0-10.0); NEUTROPHILS % (AUTO) 57.9 % (45.0-75.0); PLATELET COUNT 182 K/UL (150-450); RED BLOOD COUNT 4.64 M/UL (4.70-6.10); RED CELL DISTRIBUTION WIDTH 13.3 % (11.6-14.8); WHITE BLOOD COUNT 7.3 K/UL (4.8-10.8)
[2018-08-20 21:06] LABS: APPEARANCE,URINE CLEAR; BILIRUBIN, URINE NEGATIVE (NEGATIVE); COLOR,URINE PALE YELLOW; GLUCOSE, URINE (UA) NEGATIVE (NEGATIVE); KETONES,URINE NEGATIVE (NEGATIVE); LEUKOCYTE ESTERASE ,URINE NEGATIVE (NEGATIVE); NITRITE,URINE NEGATIVE (NEGATIVE); PH,URINE 7 (4.5-8.0); PROTEIN,URINE NEGATIVE (NEGATIVE); UROBILINOGEN,URINE NORMAL MG/DL (0.0-1.0)
[2018-08-20 21:20] LABS: INR 1.1 (0.9-1.1)
[2018-08-20 21:28] LABS: ANION GAP 9 mmol/L (5-15); BLOOD UREA NITROGEN 27 mg/dL (7-18); CALCIUM 9.5 MG/DL (8.5-10.1); CARBON DIOXIDE 27 MMOL/L (21-32); CHLORIDE 106 MMOL/L (98-107); CREATININE 1.9 MG/DL (0.55-1.30); SODIUM 142 MMOL/L (136-145)
[2018-08-20] MEDS ORDERED: Acetaminophen 500mg (ES) tab ORAL ONE (21:30)
--- NOTE | 2018-08-20 21:30 | Emergency Room Report ---
History of Present Illness General Chief Complaint: General Complaint Source: Patient, Medical Record Present Illness HPI Patient presents with bilateral ankle pain and edema. He was last hospitalized at [facility] a week ago he says. He ate some salty food this morning in his legs "blew up". He also complains about pain in his right ankle. He rates the pain in his ankle 10/10, burning and constant. The patient has a history of right heart failure. He has been seen here for edema in the past. He states he is taking Lasix 10 mg but it has not helped. He denies calf pain. He has minimal dyspnea on exertion and orthopnea. He denies chest pain. The patient has a history of gout. He is not taking medication for this at this time. The patient has a history of atrial fibrillation. He denies taking blood thinners other than aspirin. The patient states he has a history of diabetes. The patient denies fevers, chills, nausea, vomiting, diarrhea, dysuria. The patient's been seen here for pain and received opiates multiple times. The patient has chronic renal insufficiency. 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 Nursing Documentation: PMH: Agreed; PSxH: Agreed Nursing Documentation-PMH Past Medical History: No History, Except For Hx Cardiac Problems: Yes - afib, chf Hx Hypertension: Yes Hx Pacemaker: No - RETINAL DETACHMENT,RIGHT EYE Hx Asthma: No Hx COPD: No Hx Diabetes: No Hx Cancer: No Hx Gastrointestinal Problems: No Hx Dialysis: No - CRF Hx Neurological Problems: No - GOUT Hx Cerebrovascular Accident: No Hx Seizures: No Review of Systems All Other Systems: negative except mentioned in HPI Physical Exam Vital Signs Date Time Temp Pulse Resp B/P (MAP) Pulse Ox O2 Delivery O2 Flow Rate FiO2 08/20/18 19:13 98.4 104 18 107/80 96 Room Air Sp02 EP Interpretation: reviewed, normal General Appearance: well appearing, no apparent distress, GCS 15 Head: normocephalic, atraumatic Eyes: bilateral eye normal inspection, bilateral eye PERRL, bilateral eye other - Exophthalmos ENT: moist mucus membranes Neck: supple Respiratory: lungs clear, normal breath sounds Cardiovascular #1: irregularly irregular, edema - Bilateral 2+ pitting Cardiovascular #2: 2+ radial (R) Gastrointestinal: normal inspection, normal bowel sounds, non tender, no mass, non-distended Musculoskeletal: back normal, gait/station normal, normal range of motion Neurologic: alert, oriented x3, grossly normal Psychiatric: mood/affect normal Skin: normal inspection, warm/dry, other - No warmth of right ankle Medical Decision Making Diagnostic Impression: Primary Impression: Peripheral edema Additional Impressions: Gout attack Qualified Codes: 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 He is taking Lasix. Differential includes right heart failure, exacerbation of gout, DVT, electrolyte imbalance, renal failure amongst others. Patient be evaluated EKG, chest x-ray and labs. The patient will receive IV Lasix and analgesia. Unable to start IV on patient and analgesia is ordered IM. Per ER director of the patient not receive opiates here therefore other analgesics will be given. EKG with atrial fibrillation with PVCs rate of [address]-T wave changes. Chest x-ray without infiltrates or evidence of CHF. Worsened renal function. Elevated uric acid. Colchicine given. Diuresing. Pain is improved. Admitted Dr. Alaniz at request of Dr. Espinoza. Laboratory Tests Test 08/20/18 20:50 White Blood Count 7.3 K/UL (4.8-10.8) Red Blood Count 4.64 M/UL (4.70-6.10) L Hemoglobin 13.4 G/DL (14.2-18.0) L Hematocrit 41.7 % (42.0-52.0) L Mean Corpuscular Volume 90 FL (80-99) Mean Corpuscular Hemoglobin 29.0 PG (27.0-31.0) Mean Corpuscular Hemoglobin Concent 32.2 G/DL (32.0-36.0) Red Cell Distribution Width 13.3 % (11.6-14.8) Platelet Count 182 K/UL (150-450) Mean Platelet Volume 8.5 FL (6.5-10.1) Neutrophils (%) (Auto) 57.9 % (45.0-75.0) Lymphocytes (%) (Auto) 22.2 % (20.0-45.0) Monocytes (%) (Auto) 14.1 % (1.0-10.0) H Eosinophils (%) (Auto) 4.0 % (0.0-3.0) H Basophils (%) (Auto) 1.8 % (0.0-2.0) Prothrombin Time 11.1 SEC (9.30-11.50) Prothrombin Time INR 1.1 (0.9-1.1) PTT 29 SEC (23-33) Urine Color Pale yellow Urine Appearance Clear Urine pH 7 (4.5-8.0) Urine Specific [place] 1.010 (1.005-1.035) Urine Protein Negative (NEGATIVE) Urine Glucose (UA) Negative (NEGATIVE) Urine Ketones Negative (NEGATIVE) Urine Blood Negative (NEGATIVE) Urine Nitrite Negative (NEGATIVE) Urine Bilirubin Negative (NEGATIVE) Urine Urobilinogen Normal MG/DL (0.0-1.0) Urine Leukocyte Esterase Negative (NEGATIVE) Sodium Level 142 MMOL/L (136-145) Potassium Level 4.0 MMOL/L (3.5-5.1) Chloride Level 106 MMOL/L (98-107) Carbon Dioxide Level 27 MMOL/L (21-32) Anion Gap 9 mmol/L (5-15) Blood Urea Nitrogen 27 mg/dL (7-18) H Creatinine 1.9 MG/DL (0.55-1.30) H Estimate Glomerular Filtration Rate 43.0 mL/min (>60) Glucose Level 85 MG/DL (74-106) Uric Acid 9.4 MG/DL (2.6-7.2) H Calcium Level 9.5 MG/DL (8.5-10.1) Total Bilirubin 0.5 MG/DL (0.2-1.0) Aspartate Amino Transferase (AST) 23 U/L (15-37) Alanine Aminotransferase (ALT) 25 U/L (12-78) Alkaline Phosphatase 101 U/L (46-116) Total Creatine Kinase 113 U/L (26-308) Troponin I 0.025 ng/mL (0.000-0.056) Pro-B-Type Natriuretic Peptide 1036 pg/mL (0-125) H Total Protein 6.7 G/DL (6.4-8.2) Albumin 3.4 G/DL (3.4-5.0) Globulin 3.3 g/dL Albumin/Globulin Ratio 1.0 (1.0-2.7) Urine Opiates Screen Negative (NEGATIVE) Urine Barbiturates Screen Negative (NEGATIVE) Phencyclidine (PCP) Screen Negative (NEGATIVE) Urine Amphetamines Screen Negative (NEGATIVE) Urine Benzodiazepines Screen Negative (NEGATIVE) Urine Cocaine Screen Negative (NEGATIVE) Urine Marijuana (THC) Screen Negative (NEGATIVE) EKG Diagnostic Results Rate: normal Rhythm: other - a fib ST Segments: no acute changes Rhythm Strip Diag. Results EP Interpretation: yes Rhythm: other - a fib pvc rate 82 Chest X-Ray Diagnostic Results Chest X-Ray Diagnostic Results : Chest X-Ray Ordered: Yes # of Views/Limited/Complete: 1 View Indication: Other EP Interpretation: Yes Interpretation: no consolidation, no effusion, no pneumothorax, other - Cardiomegaly Impression: Other Electronically Signed by: Electronically signed by Tim Gil MD Last Vital Signs Date Time Temp Pulse Resp B/P (MAP) Pulse Ox O2 Delivery O2 Flow Rate FiO2 08/21/18 00:55 98.4 78 18 122/84 98 Room Air Status: improved Disposition: ADMITTED INPATIENT Condition: Serious Referrals: NOT CHOSEN IPA/,REFERRING (PCP) Tim Gil MD Aug 20, 2018 21:30
[2018-08-20 21:37] LABS: ALANINE AMINOTRANSFERASE 25 U/L (12-78); ALBUMIN 3.4 G/DL (3.4-5.0); ALKALINE PHOSPHATASE 101 U/L (46-116); ASPARTATE AMINO TRANSFERASE 23 U/L (15-37); BILIRUBIN,TOTAL 0.5 MG/DL (0.2-1.0); CREATINE KINASE 113 U/L (26-308)
[2018-08-20 21:57] VITALS: BP 116/82
--- NOTE | 2018-08-20 22:01 | NUR ---
ER Nurse Note: Pt calm, cooperative. Legs elevated, all meds given per ERMD orders. Awaiting room, all safety measures met, will continue to montior.
[2018-08-20] MEDS ORDERED: Miralax 17gm pkt ORAL PRN (23:45)
[2018-08-20] MEDS ORDERED: Albuterol/Ipratropium 3ml neb HHN PRN (23:45)
[2018-08-21 00:55] VITALS: BP 122/84
--- NOTE | 2018-08-21 00:55 | NUR ---
ER Nurse Note: Pt calm, coopearative, no signs of distress. Pt VSS and asleep. All orders completed per ERMD orders. Pt awaiting bed and will give report to oncoming nurse. Will continue to monitor.
--- NOTE | 2018-08-21 01:15 | NUR ---
ER Nurse Note: Report given to Nidia in [place] for continutiy of care. Pt stable, VSS, no signs of distress, MRSA swab done, pt refused CRE and VRE swab.
--- NOTE | 2018-08-21 02:02 | NUR ---
NURSE NOTES: Received patient from EULALIO Jacob. Patient AOx4, able to verbalize needs. Dr Alaniz called, awaiting orders. ER and current unit could not establish IV access, Dr Alaniz made aware. Pt c/o of 10/10 pain and itching on upper extremities and back, Dr Alaniz made aware. Oriented to room, call light and belongings within reach. Offered urinal for voiding. Signed and reviewed belongings list. VSS.
[2018-08-21 04:00] VITALS: BP 96/61
[2018-08-21] MEDS: cloNIDine 0.2mg Tab ORAL SCH ×2 (05:56→13:44)
--- NOTE | 2018-08-21 07:30 | NUR ---
NURSE NOTES: Patient is in bed asleep but verbally arousable. Patient denies pain at this time. Stable with no s/s acute distress. Patient is comfortable in bed with call light within reach. Skin is clean, dry, and intact. All needs met at this time. Will continue to monitor.
--- NOTE | 2018-08-21 07:47 | NUR ---
HAND-OFF: Report given to EULALIO Mendoza. Patient asleep in bed. No s/s of acute distress.
[2018-08-21 08:00] VITALS: BP 137/75
[2018-08-21] MEDS: Aspirin EC 81mg tab ORAL SCH (08:52)
[2018-08-21] MEDS: Furosemide 40mg tab ORAL SCH ×2 (08:52→21:22)
[2018-08-21] MEDS: Heparin 5000 units/ml inj SUBQ SCH ×2 (08:54→21:23)
--- NOTE | 2018-08-21 09:00 | NUR ---
NURSE NOTES: Patient refused Heparin stating, "it makes me urinate blood." Paged Dr. Alaniz, awaiting response. Will continue to monitor.
--- NOTE | 2018-08-21 10:00 | NUR ---
NURSE NOTES: Patient had chest xray done at bedside. Venous duplex of bilateral lower extremities negative. Will continue to monitor patient.
[2018-08-21 10:34] LABS: BASOPHILS % (AUTO) 1.4 % (0.0-2.0); EOSINOPHILS % (AUTO) 3.6 % (0.0-3.0); HEMATOCRIT 41.7 % (42.0-52.0); HEMOGLOBIN 13.9 G/DL (14.2-18.0); LYMPHOCYTES % (AUTO) 22.3 % (20.0-45.0); MEAN CORPUSCULAR VOLUME 90 FL (80-99); MONOCYTES % (AUTO) 17.8 % (1.0-10.0); NEUTROPHILS % (AUTO) 54.9 % (45.0-75.0); PLATELET COUNT 181 K/UL (150-450); RED BLOOD COUNT 4.64 M/UL (4.70-6.10); WHITE BLOOD COUNT 5.6 K/UL (4.8-10.8)
--- NOTE | 2018-08-21 10:34 | Diagnostic Imaging Report ---
EXAM: XR Chest, 1 View CLINICAL HISTORY: DYSPNEA TECHNIQUE: Frontal view of the chest. COMPARISON: Chest x-ray dated 08/20/18 FINDINGS: Lungs: Unremarkable. The lungs appear clear. No focal consolidation. Pleural space: Unremarkable. The costophrenic angles are sharp. No visible pneumothorax. Heart: Mild cardiomegaly, unchanged. Mediastinum: Unremarkable. Bones/joints: Unremarkable. IMPRESSION: No acute findings.
[2018-08-21 11:14] LABS: ALBUMIN 3.3 G/DL (3.4-5.0); ANION GAP 12 mmol/L (5-15); BLOOD UREA NITROGEN 26 mg/dL (7-18); CARBON DIOXIDE 24 MMOL/L (21-32); CHLORIDE 107 MMOL/L (98-107); CREATININE 1.9 MG/DL (0.55-1.30); PHOSPHORUS 2.6 MG/DL (2.5-4.9); POTASSIUM 3.6 MMOL/L (3.5-5.1); SODIUM 143 MMOL/L (136-145)
[2018-08-21 12:00] VITALS: BP 119/85
--- NOTE | 2018-08-21 12:59 | Consultation ---
History of Present Illness General Date patient seen: Aug 21, 2018 Chief Complaint: General Complaint Present Illness Allergies: Coded Allergies: No Known Allergies (Unverified , 08/08/18) Medication History Scheduled Aspirin* (Aspir 81*), 81 MG ORAL DAILY, (Reported) Clonidine Hcl* (Catapres*), 0.2 MG ORAL Q8HR, (Reported) Furosemide* (Lasix*), 20 MG ORAL TID, (Reported) Furosemide* (Lasix*), 40 MG ORAL TWICE A DAY Lidocaine (Lidoderm), 1 PATCH TOPIC see instructions Potassium Chloride (Potassium Chloride), 20 MEQ ORAL DAILY, (Reported) Miscellaneous Medications Colchicine (Colchicine), 12.5 GM MC, (Reported) Patient History Healthcare decision maker Resuscitation status Advanced Directive on File Physical Exam Physical Exam Narrative General Appearance: WD/WN Lines, tubes and drains: peripheral HEENT: normocephalic, atraumatic Neck: non-tender, normal alignment Respiratory/Chest: chest wall non-tender, lungs clear Breasts: no masses Cardiovascular/Chest: normal peripheral pulses, normal rate Abdomen: normal bowel sounds Genitourinary/Rectal: normal genital exam Extremities: normal range of motion 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 Last 24 Hour Vital Signs Date Time Temp Pulse Resp B/P (MAP) Pulse Ox O2 Delivery O2 Flow Rate FiO2 08/21/18 12:00 97.2 62 18 119/85 (96) 100 08/21/18 08:00 98.2 102 21 137/75 (95) 100 08/21/18 05:56 119/74 08/21/18 04:00 97.7 70 18 96/61 (73) 100 08/21/18 02:10 Room Air 08/21/18 01:30 98.4 78 18 122/84 98 Room Air 08/21/18 00:55 98.4 78 18 122/84 98 Room Air 08/20/18 22:33 98.3 08/20/18 21:57 98.3 84 18 116/82 98 Room Air 08/20/18 19:38 104 18 Room Air 08/20/18 19:38 98.4 86 18 107/80 96 Room Air 08/20/18 19:13 98.4 104 18 107/80 96 Room Air Intake and Output 08/20/18 08/21/18 19:00 07:00 Intake Total 100 ml Balance 100 ml Intake Oral 100 ml # Voids 4 # Bowel Movements 1 Laboratory Tests Test 08/20/18 20:50 08/21/18 09:42 White Blood Count 7.3 K/UL (4.8-10.8) 5.6 K/UL (4.8-10.8) Red Blood Count 4.64 M/UL (4.70-6.10) L 4.64 M/UL (4.70-6.10) L Hemoglobin 13.4 G/DL (14.2-18.0) L 13.9 G/DL (14.2-18.0) L Hematocrit 41.7 % (42.0-52.0) L 41.7 % (42.0-52.0) L Mean Corpuscular Volume 90 FL (80-99) 90 FL (80-99) Mean Corpuscular Hemoglobin 29.0 PG (27.0-31.0) 29.9 PG (27.0-31.0) Mean Corpuscular Hemoglobin Concent 32.2 G/DL (32.0-36.0) 33.3 G/DL (32.0-36.0) Red Cell Distribution Width 13.3 % (11.6-14.8) 13.0 % (11.6-14.8) Platelet Count 182 K/UL (150-450) 181 K/UL (150-450) Mean Platelet Volume 8.5 FL (6.5-10.1) 8.9 FL (6.5-10.1) Neutrophils (%) (Auto) 57.9 % (45.0-75.0) 54.9 % (45.0-75.0) Lymphocytes (%) (Auto) 22.2 % (20.0-45.0) 22.3 % (20.0-45.0) Monocytes (%) (Auto) 14.1 % (1.0-10.0) H 17.8 % (1.0-10.0) H Eosinophils (%) (Auto) 4.0 % (0.0-3.0) H 3.6 % (0.0-3.0) H Basophils (%) (Auto) 1.8 % (0.0-2.0) 1.4 % (0.0-2.0) Prothrombin Time 11.1 SEC (9.30-11.50) Prothromb Time International Ratio 1.1 (0.9-1.1) Activated Partial Thromboplast Time 29 SEC (23-33) Urine Color Pale yellow Urine Appearance Clear Urine pH 7 (4.5-8.0) Urine Specific [place] 1.010 (1.005-1.035) Urine Protein Negative (NEGATIVE) Urine Glucose (UA) Negative (NEGATIVE) Urine Ketones Negative (NEGATIVE) Urine Blood Negative (NEGATIVE) Urine Nitrite Negative (NEGATIVE) Urine Bilirubin Negative (NEGATIVE) Urine Urobilinogen Normal MG/DL (0.0-1.0) Urine Leukocyte Esterase Negative (NEGATIVE) Sodium Level 142 MMOL/L (136-145) 143 MMOL/L (136-145) Potassium Level 4.0 MMOL/L (3.5-5.1) 3.6 MMOL/L (3.5-5.1) Chloride Level 106 MMOL/L (98-107) 107 MMOL/L (98-107) Carbon Dioxide Level 27 MMOL/L (21-32) 24 MMOL/L (21-32) Anion Gap 9 mmol/L (5-15) 12 mmol/L (5-15) Blood Urea Nitrogen 27 mg/dL (7-18) H 26 mg/dL (7-18) H Creatinine 1.9 MG/DL (0.55-1.30) H 1.9 MG/DL (0.55-1.30) H Estimat Glomerular Filtration Rate 43.0 mL/min (>60) 43.0 mL/min (>60) Glucose Level 85 MG/DL (74-106) 97 MG/DL (74-106) Uric Acid 9.4 MG/DL (2.6-7.2) H Calcium Level 9.5 MG/DL (8.5-10.1) 10.0 MG/DL (8.5-10.1) Total Bilirubin 0.5 MG/DL (0.2-1.0) Aspartate Amino Transf (AST/SGOT) 23 U/L (15-37) Alanine Aminotransferase (ALT/SGPT) 25 U/L (12-78) Alkaline Phosphatase 101 U/L (46-116) Total Creatine Kinase 113 U/L (26-308) Troponin I 0.025 ng/mL (0.000-0.056) 0.023 ng/mL (0.000-0.056) Pro-B-Type Natriuretic Peptide 1036 pg/mL (0-125) H Total Protein 6.7 G/DL (6.4-8.2) Albumin 3.4 G/DL (3.4-5.0) 3.3 G/DL (3.4-5.0) L Globulin 3.3 g/dL Albumin/Globulin Ratio 1.0 (1.0-2.7) Urine Opiates Screen Negative (NEGATIVE) Urine Barbiturates Screen Negative (NEGATIVE) Phencyclidine (PCP) Screen Negative (NEGATIVE) Urine Amphetamines Screen Negative (NEGATIVE) Urine Benzodiazepines Screen Negative (NEGATIVE) Urine Cocaine Screen Negative (NEGATIVE) Urine Marijuana (THC) Screen Negative (NEGATIVE) Phosphorus Level 2.6 MG/DL (2.5-4.9) Height (Feet): 5 Height (Inches): 10.00 Weight (Pounds): 200 Medications Current Medications Medications (Trade) Dose Ordered Sig/Artie Route PRN Reason Start Time Stop Time Status Last Admin Dose Admin Acetaminophen (Tylenol) 650 mg Q4H PRN ORAL Fever 08/21/18 02:00 09/20/18 01:59 Albuterol/ Ipratropium (Albuterol/ Ipratropium) 3 ml Q4H PRN HHN Shortness of Breath 08/20/18 23:45 08/25/18 23:44 Aspirin (Ecotrin) 81 mg DAILY ORAL 08/21/18 09:00 09/20/18 08:59 08/21/18 08:52 Clonidine HCl (Catapres tab) 0.2 mg Q8HR ORAL 08/21/18 06:00 09/20/18 05:59 Dextrose (Dextrose 50%) 25 ml Q30M PRN IV Hypoglycemia 08/20/18 23:45 09/19/18 23:44 Dextrose (Dextrose 50%) 50 ml Q30M PRN IV Hypoglycemia 08/20/18 23:45 09/19/18 23:44 Furosemide (Lasix) 40 mg EVERY 12 HOURS ORAL 08/21/18 09:00 09/20/18 08:59 08/21/18 08:52 Heparin Sodium (Porcine) (Heparin 5000 units/ml) 5,000 units EVERY 12 HOURS SUBQ 08/21/18 09:00 09/20/18 08:59 08/21/18 08:54 Lidocaine (Lidoderm 5% PATCH) 1 patch DAILY TDERMAL 08/21/18 09:00 09/20/18 08:59 08/21/18 08:53 Ondansetron HCl (Zofran) 4 mg Q6H PRN IVP Nausea & Vomiting 08/21/18 02:00 09/20/18 01:59 Polyethylene Glycol (Miralax) 17 gm DAILYPRN PRN ORAL Constipation 08/20/18 23:45 09/19/18 23:44 Potassium Chloride (K-Dur) 20 meq DAILY ORAL 08/21/18 09:00 09/20/18 08:59 08/21/18 08:52 Temazepam (Restoril) 15 mg HSPRN PRN ORAL Insomnia 08/20/18 23:45 08/27/18 23:44 Assessment/Plan Problem List: (1) Right-sided heart failure ICD Codes: I50.9 - Heart failure, unspecified SNOMED: 550617819 (2) Peripheral edema ICD Codes: R60.9 - Edema, unspecified SNOMED: 108094614 (3) Chronic gout ICD Codes: M1A.9XX0 - Chronic gout, unspecified, without tophus (tophi) SNOMED: 70516181, 37489736 (4) Back pain ICD Codes: M54.9 - Dorsalgia, unspecified SNOMED: 128052416 Abbey Espinoza MD Aug 21, 2018 12:59
[2018-08-21] MEDS ORDERED: Heparin1,000 units/500ml Premix(Conc:2 units/ml) IV PRN (14:45)
[2018-08-21] MEDS ORDERED: Lidocaine 1% Plain 30 ml INJ PRN (14:45)
--- NOTE | 2018-08-21 15:49 | NUR ---
NURSE NOTES: Patient refused PICC line placement. Patient did not sign consent. Patient is aware of all risks and benefits of PICC line placement, patient does not agree and says a PICC line is not necessary. Dr. Espinoza made aware. Will continue to monitor.
[2018-08-21 16:00] VITALS: BP 110/62
--- NOTE | 2018-08-21 19:14 | History & Physical ---
History and Physical History & Physicial Patient uncooperative with interview "you're racist" "I want my meds". Dictated for Int Med-Dr Alaniz no. [id number]. Rodney Avilez MD Aug 21, 2018 19:13
[2018-08-21] MEDS ORDERED: cloNIDine 0.2mg Tab ORAL PRN (19:15)
--- NOTE | 2018-08-21 19:23 | NUR ---
NURSE NOTES: Patient is upset that he cannot have Clonidine at this time. RN explained to patient that his medication is not due now and can't be administered at this time, patient became more upset and stated, "you are denying me of my blood pressure medication." Dr. Avilez made aware of situation. Dr. Avilez spoke to patient regarding his medication. BP is 118/88, pulse 86, patient is stable, no s/s acute distress.
--- NOTE | 2018-08-21 19:50 | NUR ---
NURSE NOTES: Seen and evaluated by with new order - 1. Transfer patient to Tele. Order noted and carried out. Cookie Breaker notified regarding transfer.
--- NOTE | 2018-08-21 19:50 | NUR ---
HAND-OFF: Report given to Milo TSAI. Patient is stable.
[2018-08-21] MEDS ORDERED: Dyna-Hex 2% Top Sol 2oz TOPIC SCH (20:00)
--- NOTE | 2018-08-21 20:00 | History and Physical Report ---
DATE OF ADMISSION: 08/20/2018 CHIEF COMPLAINT: The patient is a 67-year-old, male, presents with chief complaint of swelling of the bilateral lower extremities. HISTORY OF PRESENT ILLNESS: The patient has a history of gout. The patient also has a history of right-sided heart failure. The patient is extremely angry and is unable to participate in the interview. The patient presented to [facility] complaining of bilateral ankle swelling. The patient was admitted for acute on chronic congestive heart failure and possible flare up of gout. REVIEW OF SYSTEMS: Unable to assess secondary to the patient's attitude. PAST MEDICAL HISTORY: Significant for: 1. Atrial fibrillation. 2. Right-sided congestive heart failure. 3. Gout. 4. Chronic low back pain. PAST SURGICAL HISTORY: The patient denies. CURRENT MEDICATIONS: 1. Aspirin 81 mg one tablet p.o. daily. 2. Clonidine 0.2 mg p.o. q.8 h. p.r.n. 3. Colchicine p.o. daily. 4. Furosemide 20 mg p.o. three times daily. 5. Potassium chloride 10 mEq p.o. daily. ALLERGIES: No known drug allergies. SOCIAL HISTORY: The patient is single. The patient denies tobacco or alcohol use. PHYSICAL EXAMINATION: VITAL SIGNS: Temperature 97.7 degrees, respirations 18, pulse 70, and blood pressure 96/61. GENERAL: The patient is a well-developed, well-nourished, slightly obese, male, in no apparent distress. HEENT: Eyes, pupils are equal and responsive to light and accommodation. Extraocular movements are intact. NECK: Supple without lymphadenopathy. CHEST: Lungs are clear to auscultation bilaterally without wheezes or rales. CARDIOVASCULAR: Regular rate. S1 and S2 are normal without murmurs, rubs, or gallops. ABDOMEN: Soft, nontender, and nondistended. Positive bowel sounds. No evidence of hepatosplenomegaly. Currently, no rebound or guarding noted. EXTREMITIES: Negative for clubbing, cyanosis, or edema. RECTAL: Refused. GENITAL: Refused. NEUROLOGIC: Cranial nerves II through XII are grossly intact without focal deficits. Motor strength is 5/5 bilaterally intact. Deep tendon reflexes are 2+ plantar. LABORATORY AND DIAGNOSTIC DATA: Laboratory studies, WBC 7.3, hemoglobin 13.4, hematocrit 41.7, and platelets 182,000. Sodium 142, potassium 4.0, chloride 106, CO2 27, BUN 27, creatinine 1.9, and glucose 85. BNP elevated at 1036. Troponin normal at 0.025. Urinalysis was within normal limits. Chest x-ray was reported as no acute disease. ASSESSMENT: This is a 67-year-old male with: 1. Edema. 2. Acute on chronic congestive heart failure. 3. Atrial fibrillation. 4. Gout. TREATMENT: 1. Edema/congestive heart failure. Cardiology consultation has been obtained with Dr. Cardona. The patient has been started on intravenous Lasix. We will follow recommendations of Cardiology. 2. Atrial fibrillation. As above, a Cardiology consultation has been obtained with Dr. Cardona. 3. Gout. Continue colchicine as above. Rodney Avilez M.D. DR: Bobbi JOB#: [id number] CC:
--- NOTE | 2018-08-21 20:00 | NUR ---
NURSE NOTES: Pt lying in bed w/bed in lowest position and call light within reach. Pt A&Ox4, VSS, and in no apparent distress at this time. No IV access; aware. Pt has no complaints at this time and is to be transferred to tele. Will continue to monitor.
[2018-08-21 20:30] VITALS: BP 110/78
--- NOTE | 2018-08-21 21:04 | NUR ---
CARDIOLOGY PACS IS CURRENTLY DOWN. 2D ECHO PRELIMINARY REPORT IS, Normal left ventricular chamber size. Mildly depressed systolic function and wall motion. Left ventricular ejection fraction estimated to be 50 %. Mild left ventricular hypertrophy. No evidence of pericardial effusion. Mild bi-atrial enlargement. Mild right ventricular enlargement. Mild focal aortic valve sclerosis with adequate cusp excursion. Mildly thickened mitral valve leaflets with normal excursion. Mild mitral annulus and aortic root calcification. Pulmonic valve not visualized. Normal tricuspid valve structure. IVC is normal in size with physiological collapse. A color flow and spectral Doppler study was performed and revealed: Trace aortic insufficiency. Peak aortic valve gradient of 16 mmHg and a mean of 8 mmHg. Aortic valve area 1.5 cm2 calculated by continuity equation. Moderate mitral regurgitation. Normal left ventricular diastolic function. Mild tricuspid regurgitation. Tricuspid systolic velocities suggests peak right ventricular systolic pressure of 31mmHg.
--- NOTE | 2018-08-21 21:48 | Consultation ---
History of Present Illness General Date patient seen: Aug 21, 2018 Time patient seen: 21:42 Chief Complaint: General Complaint Present Illness HPI 67 year old male presents with LE swellling and edema, LE ultrasound negative for DVT, Echo with LVEF 50 % with mild and moderate MR, CXR clear, troponin negative, BNP elevated. Allergies: Coded Allergies: No Known Allergies (Unverified , 08/08/18) Medication History Scheduled Aspirin* (Aspir 81*), 81 MG ORAL DAILY, (Reported) Clonidine Hcl* (Catapres*), 0.2 MG ORAL Q8HR, (Reported) Furosemide* (Lasix*), 20 MG ORAL TID, (Reported) Furosemide* (Lasix*), 40 MG ORAL TWICE A DAY Lidocaine (Lidoderm), 1 PATCH TOPIC see instructions Potassium Chloride (Potassium Chloride), 20 MEQ ORAL DAILY, (Reported) Miscellaneous Medications Colchicine (Colchicine), 12.5 GM MC, (Reported) Patient History Healthcare decision maker Resuscitation status Advanced Directive on File Review of Systems Constitutional: Reports: no symptoms Eye: Reports: no symptoms ENT: Reports: no symptoms Respiratory: Reports: no symptoms Cardiovascular: Reports: no symptoms Gastrointestinal: Reports: no symptoms Genitourinary: Reports: no symptoms Musculoskeletal: Reports: no symptoms Skin: Reports: no symptoms Psychiatric: Reports: no symptoms Neurological: Reports: no symptoms Endocrine: Reports: no symptoms Hematologic/Lymphatic: Reports: no symptoms Physical Exam General Appearance: no apparent distress, alert Lines, tubes and drains: peripheral HEENT: normocephalic, atraumatic, anicteric, mucous membranes moist, PERRL Neck: non-tender, normal alignment, supple, normal inspection Respiratory/Chest: chest wall non-tender, lungs clear Cardiovascular/Chest: normal peripheral pulses, regularly irregular, tachycardia, diastolic murmur, systolic murmur, arrhythmia Abdomen: normal bowel sounds, non tender, soft, no organomegaly, no mass Extremities: normal range of motion, non-tender, normal inspection 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, no motor/sensory deficits Last 24 Hour Vital Signs Date Time Temp Pulse Resp B/P (MAP) Pulse Ox O2 Delivery O2 Flow Rate FiO2 08/21/18 20:30 98.8 107 17 110/78 (89) 99 08/21/18 16:00 97.9 65 15 110/62 (78) 100 08/21/18 13:44 107/69 08/21/18 12:00 97.2 62 18 119/85 (96) 100 08/21/18 08:00 98.2 102 21 137/75 (95) 100 08/21/18 05:56 119/74 08/21/18 04:00 97.7 70 18 96/61 (73) 100 08/21/18 02:10 Room Air 08/21/18 01:30 98.4 78 18 122/84 98 Room Air 08/21/18 00:55 98.4 78 18 122/84 98 Room Air 08/20/18 22:33 98.3 08/20/18 21:57 98.3 84 18 116/82 98 Room Air Intake and Output 08/20/18 08/21/18 19:00 07:00 Intake Total 100 ml Balance 100 ml Intake Oral 100 ml # Voids 4 # Bowel Movements 1 Laboratory Tests Test 08/21/18 09:42 White Blood Count 5.6 K/UL (4.8-10.8) Red Blood Count 4.64 M/UL (4.70-6.10) L Hemoglobin 13.9 G/DL (14.2-18.0) L Hematocrit 41.7 % (42.0-52.0) L Mean Corpuscular Volume 90 FL (80-99) Mean Corpuscular Hemoglobin 29.9 PG (27.0-31.0) Mean Corpuscular Hemoglobin Concent 33.3 G/DL (32.0-36.0) Red Cell Distribution Width 13.0 % (11.6-14.8) Platelet Count 181 K/UL (150-450) Mean Platelet Volume 8.9 FL (6.5-10.1) Neutrophils (%) (Auto) 54.9 % (45.0-75.0) Lymphocytes (%) (Auto) 22.3 % (20.0-45.0) Monocytes (%) (Auto) 17.8 % (1.0-10.0) H Eosinophils (%) (Auto) 3.6 % (0.0-3.0) H Basophils (%) (Auto) 1.4 % (0.0-2.0) Sodium Level 143 MMOL/L (136-145) Potassium Level 3.6 MMOL/L (3.5-5.1) Chloride Level 107 MMOL/L (98-107) Carbon Dioxide Level 24 MMOL/L (21-32) Anion Gap 12 mmol/L (5-15) Blood Urea Nitrogen 26 mg/dL (7-18) H Creatinine 1.9 MG/DL (0.55-1.30) H Estimat Glomerular Filtration Rate 43.0 mL/min (>60) Glucose Level 97 MG/DL (74-106) Calcium Level 10.0 MG/DL (8.5-10.1) Phosphorus Level 2.6 MG/DL (2.5-4.9) Troponin I 0.023 ng/mL (0.000-0.056) Albumin 3.3 G/DL (3.4-5.0) L Height (Feet): 5 Height (Inches): 10.00 Weight (Pounds): 200 Medications Current Medications Medications (Trade) Dose Ordered Sig/Artie Route PRN Reason Start Time Stop Time Status Last Admin Dose Admin Acetaminophen (Tylenol) 650 mg Q4H PRN ORAL Fever 08/21/18 02:00 09/20/18 01:59 08/21/18 14:10 Albuterol/ Ipratropium (Albuterol/ Ipratropium) 3 ml Q4H PRN HHN Shortness of Breath 08/20/18 23:45 08/25/18 23:44 Aspirin (Ecotrin) 81 mg DAILY ORAL 08/21/18 09:00 09/20/18 08:59 08/21/18 08:52 Clonidine HCl (Catapres tab) 0.2 mg Q8H ORAL 08/22/18 19:30 09/20/18 19:29 Dextrose (Dextrose 50%) 25 ml Q30M PRN IV Hypoglycemia 08/20/18 23:45 09/19/18 23:44 Dextrose (Dextrose 50%) 50 ml Q30M PRN IV Hypoglycemia 08/20/18 23:45 09/19/18 23:44 Furosemide (Lasix) 40 mg EVERY 12 HOURS ORAL 08/21/18 09:00 09/20/18 08:59 08/21/18 21:22 Heparin Sodium (Porcine) (Heparin 5000 units/ml) 5,000 units EVERY 12 HOURS SUBQ 08/21/18 09:00 09/20/18 08:59 08/21/18 21:23 Heparin Sodium/ Dextrose (Heparin 1000 units/500ml Premix) 1,000 unit ONCE PRN IV picc line placement 08/21/18 14:45 08/23/18 14:44 Lidocaine (Lidoderm 5% PATCH) 1 patch DAILY TDERMAL 08/21/18 09:00 09/20/18 08:59 08/21/18 08:53 Lidocaine HCl (Xylocaine 1% 30ml) 30 ml ONCE PRN INJ picc line placement 08/21/18 14:45 08/23/18 14:44 Polyethylene Glycol (Miralax) 17 gm DAILYPRN PRN ORAL Constipation 08/20/18 23:45 09/19/18 23:44 Potassium Chloride (K-Dur) 20 meq DAILY ORAL 08/21/18 09:00 09/20/18 08:59 08/21/18 08:52 Temazepam (Restoril) 15 mg HSPRN PRN ORAL Insomnia 08/20/18 23:45 08/27/18 23:44 Assessment/Plan Status: stable Assessment/Plan Assessment Edema Diastolic heart failure valvular heart disease Aortic stenosis mild moderate mitral regurgitation Gout Hypertension Atrial fibrillation Plan: AFIB - multifactorial -Eliquis -Metoprolol -No indication for cardioversion Valvular heart disease -Control heart rate goal 60-70 to reduce mitral regurgitant volume -No indication for surgical intervention Diastolic heart failure -Lasix 40 mg IV BID -Transition to PO LE edema -Compression stockings -:Low salt diet Hypertension -Metoprolol -Clonidine Monitor for orthostasis Tim Cardona MD Aug 21, 2018 21:48
--- NOTE | 2018-08-21 22:15 | NUR ---
NURSE NOTES: Pt refusing to be transferred to telemetry unit; per MERLIN Stafford for pt to remain on Med-Surg unit. Will continue to monitor.
[2018-08-22] VITALS: BP 116/81
[2018-08-22 06:58] LABS: BASOPHILS % (AUTO) 1.9 % (0.0-2.0); EOSINOPHILS % (AUTO) 4.4 % (0.0-3.0); HEMATOCRIT 39.7 % (42.0-52.0); LYMPHOCYTES % (AUTO) 28.5 % (20.0-45.0); MEAN CORPUSCULAR VOLUME 89 FL (80-99); MONOCYTES % (AUTO) 15.7 % (1.0-10.0); NEUTROPHILS % (AUTO) 49.5 % (45.0-75.0); PLATELET COUNT 176 K/UL (150-450); RED BLOOD COUNT 4.45 M/UL (4.70-6.10); RED CELL DISTRIBUTION WIDTH 13.1 % (11.6-14.8); WHITE BLOOD COUNT 5.5 K/UL (4.8-10.8)
--- NOTE | 2018-08-22 07:05 | NUR ---
HAND-OFF: Report given to EULALIO Mendoza.
[2018-08-22 07:08] LABS: ANION GAP 8 mmol/L (5-15); BLOOD UREA NITROGEN 20 mg/dL (7-18); CALCIUM 10.1 MG/DL (8.5-10.1); CARBON DIOXIDE 25 MMOL/L (21-32); CHLORIDE 110 MMOL/L (98-107); CREATININE 1.8 MG/DL (0.55-1.30); POTASSIUM 3.7 MMOL/L (3.5-5.1); SODIUM 143 MMOL/L (136-145)
--- NOTE | 2018-08-22 07:30 | NUR ---
NURSE NOTES: Patient is awake and able to verbalize needs. Stable with no s/s acute distress. Denies pain or SOB at this time. Patient is sitting up in bed eating breakfast, tolerated well. Patient is comfortable with call light within reach. All needs met at this time. Will continue to monitor.
[2018-08-22 08:00] VITALS: BP 161/110
[2018-08-22] MEDS ORDERED: cloNIDine 0.2mg Tab ORAL PRN ×2 (08:00→19:30)
[2018-08-22] MEDS: Eliquis 2.5mg tablet ORAL SCH ×2 (09:38→18:41)
[2018-08-22] MEDS: Furosemide 40mg tab ORAL SCH ×2 (09:38→21:06)
[2018-08-22] MEDS: Aspirin EC 81mg tab ORAL SCH (09:38)
[2018-08-22] MEDS: Metoprolol Succinate XL 50mg tab ORAL SCH (09:38)
[2018-08-22 12:00] VITALS: BP 123/96
--- NOTE | 2018-08-22 12:37 | Pulmonology Progress Note ---
Assessment/Plan Problems: (1) Right-sided heart failure (2) Peripheral edema (3) Chronic gout (4) Back pain Assessment/Plan continue lasix add morphine Clonidine is added f/u cardio recommendations watch intake and output check electrolytes dvt prophylaxis. Subjective Interval Events: still c/o knee pain and swelling Allergies: Coded Allergies: No Known Allergies (Unverified , 08/08/18) Objective Last 24 Hour Vital Signs Date Time Temp Pulse Resp B/P (MAP) Pulse Ox O2 Delivery O2 Flow Rate FiO2 08/22/18 09:38 73 161/110 08/22/18 09:00 Room Air 08/22/18 08:03 161/110 08/22/18 08:00 97.5 73 20 161/110 (127) 100 08/22/18 00:00 98.5 103 18 116/81 (93) 99 08/21/18 21:00 Room Air 08/21/18 20:30 98.8 107 17 110/78 (89) 99 08/21/18 16:00 97.9 65 15 110/62 (78) 100 08/21/18 13:44 107/69 Intake and Output 08/21/18 08/22/18 19:00 07:00 Intake Total 590 ml 480 ml Balance 590 ml 480 ml Intake Oral 590 ml 480 ml # Voids 3 3 General Appearance: WD/WN HEENT: normocephalic Respiratory/Chest: chest wall non-tender, lungs clear Cardiovascular: normal peripheral pulses, normal rate, regular rhythm Abdomen: normal bowel sounds, soft, non tender Genitourinary: normal external genitalia Laboratory Tests 08/22/18 05:35: White Blood Count 5.5, Red Blood Count 4.45L, Hemoglobin 13.0L, Hematocrit 39.7L , Mean Corpuscular Volume 89, Mean Corpuscular Hemoglobin 29.2, Mean Corpuscular Hemoglobin Concent 32.7, Red Cell Distribution Width 13.1, Platelet Count 176, Mean Platelet Volume 9.0, Neutrophils (%) (Auto) 49.5, Lymphocytes (% ) (Auto) 28.5, Monocytes (%) (Auto) 15.7H, Eosinophils (%) (Auto) 4.4H, Basophils (%) (Auto) 1.9, Sodium Level 143, Potassium Level 3.7, Chloride Level 110H, Carbon Dioxide Level 25, Anion Gap 8, Blood Urea Nitrogen 20H, Creatinine 1.8H, Estimat Glomerular Filtration Rate 45.8, Glucose Level 86, Calcium Level 10.1, Troponin I 0.035 Current Medications Medications (Trade) Dose Ordered Sig/Artie Route PRN Reason Start Time Stop Time Status Last Admin Dose Admin Acetaminophen (Tylenol) 650 mg Q4H PRN ORAL Fever 08/21/18 02:00 09/20/18 01:59 08/21/18 14:10 Albuterol/ Ipratropium (Albuterol/ Ipratropium) 3 ml Q4H PRN HHN Shortness of Breath 08/20/18 23:45 08/25/18 23:44 Apixaban (Eliquis) 2.5 mg BID ORAL 08/22/18 09:00 09/21/18 08:59 08/22/18 09:38 Aspirin (Ecotrin) 81 mg DAILY ORAL 08/21/18 09:00 09/20/18 08:59 08/22/18 09:38 Clonidine HCl (Catapres tab) 0.2 mg Q8H PRN ORAL SBP > 160 mm Hg 08/22/18 08:00 09/21/18 07:59 08/22/18 08:03 Dextrose (Dextrose 50%) 25 ml Q30M PRN IV Hypoglycemia 08/20/18 23:45 09/19/18 23:44 Dextrose (Dextrose 50%) 50 ml Q30M PRN IV Hypoglycemia 08/20/18 23:45 09/19/18 23:44 Furosemide (Lasix) 40 mg EVERY 12 HOURS ORAL 08/21/18 09:00 09/20/18 08:59 08/22/18 09:38 Heparin Sodium/ Dextrose (Heparin 1000 units/500ml Premix) 1,000 unit ONCE PRN IV picc line placement 08/21/18 14:45 08/23/18 14:44 Lidocaine (Lidoderm 5% PATCH) 1 patch DAILY TDERMAL 08/21/18 09:00 09/20/18 08:59 08/22/18 09:37 Lidocaine HCl (Xylocaine 1% 30ml) 30 ml ONCE PRN INJ picc line placement 08/21/18 14:45 08/23/18 14:44 Metoprolol Succinate (Toprol XL) 50 mg DAILY ORAL 08/22/18 09:00 09/21/18 08:59 08/22/18 09:38 Polyethylene Glycol (Miralax) 17 gm DAILYPRN PRN ORAL Constipation 08/20/18 23:45 09/19/18 23:44 Potassium Chloride (K-Dur) 20 meq DAILY ORAL 08/21/18 09:00 09/20/18 08:59 08/22/18 09:37 Temazepam (Restoril) 15 mg HSPRN PRN ORAL Insomnia 08/20/18 23:45 08/27/18 23:44 Abbey Espinoza MD Aug 22, 2018 12:37
[2018-08-22] MEDS ORDERED: Morphine Sulfate 4mg/ml Inj (IV USE ONLY) IM PRN ×2 (12:45)
[2018-08-22] MEDS: Morphine IR 15mg tab ORAL PRN (14:55)
--- NOTE | 2018-08-22 14:57 | NUR ---
NURSE NOTES: Patient asked for pain medication due to 10/10 pain in bilateral legs. Pain medication administered as ordered, tolerated well. After taking his pain medication, patient stated, "what other medication can I have right now." RN explained to patient that he has no other medication prescribed at this time. Patient continued to ask for clonidine and any medication he has ordered and disagrees with the frequency of medications. Patient is stable with no s/s acute distress. All needs met at this time. Will continue to monitor.
[2018-08-22 16:00] VITALS: BP 115/73
[2018-08-22] MEDS: cloNIDine 0.2mg Tab ORAL SCH (16:20)
--- NOTE | 2018-08-22 17:36 | Internal Med Progress Note ---
Subjective Date of Service: Aug 22, 2018 Physician Name Rodney Avilez Attending Physician Mariano Alaniz MD Current Medications Medications (Trade) Dose Ordered Sig/Artie Route PRN Reason Start Time Stop Time Status Last Admin Dose Admin Acetaminophen (Tylenol) 650 mg Q4H PRN ORAL Fever 08/21/18 02:00 09/20/18 01:59 08/21/18 14:10 Albuterol/ Ipratropium (Albuterol/ Ipratropium) 3 ml Q4H PRN HHN Shortness of Breath 08/20/18 23:45 08/25/18 23:44 Apixaban (Eliquis) 2.5 mg BID ORAL 08/22/18 09:00 09/21/18 08:59 08/22/18 09:38 Aspirin (Ecotrin) 81 mg DAILY ORAL 08/21/18 09:00 09/20/18 08:59 08/22/18 09:38 Clonidine HCl (Catapres tab) 0.2 mg Q8H ORAL 08/22/18 16:00 09/21/18 07:59 08/22/18 16:20 Dextrose (Dextrose 50%) 25 ml Q30M PRN IV Hypoglycemia 08/20/18 23:45 09/19/18 23:44 Dextrose (Dextrose 50%) 50 ml Q30M PRN IV Hypoglycemia 08/20/18 23:45 09/19/18 23:44 Furosemide (Lasix) 40 mg EVERY 12 HOURS ORAL 08/21/18 09:00 09/20/18 08:59 08/22/18 09:38 Heparin Sodium/ Dextrose (Heparin 1000 units/500ml Premix) 1,000 unit ONCE PRN IV picc line placement 08/21/18 14:45 08/23/18 14:44 Lidocaine (Lidoderm 5% PATCH) 1 patch DAILY TDERMAL 08/21/18 09:00 09/20/18 08:59 08/22/18 09:37 Lidocaine HCl (Xylocaine 1% 30ml) 30 ml ONCE PRN INJ picc line placement 08/21/18 14:45 08/23/18 14:44 Metoprolol Succinate (Toprol XL) 50 mg DAILY ORAL 08/22/18 09:00 09/21/18 08:59 08/22/18 09:38 Morphine HCl (Morphine IR) 15 mg Q4H PRN ORAL For Pain 08/22/18 12:45 08/29/18 12:44 08/22/18 14:55 Morphine Sulfate (Morphine Sulfate) 4 mg Q4H PRN IM For Pain 08/22/18 12:45 08/29/18 12:44 Polyethylene Glycol (Miralax) 17 gm DAILYPRN PRN ORAL Constipation 08/20/18 23:45 09/19/18 23:44 Potassium Chloride (K-Dur) 20 meq DAILY ORAL 08/21/18 09:00 09/20/18 08:59 08/22/18 09:37 Temazepam (Restoril) 15 mg HSPRN PRN ORAL Insomnia 08/20/18 23:45 08/27/18 23:44 Allergies: Coded Allergies: No Known Allergies (Unverified , 08/08/18) ROS Limited/Unobtainable: No Constitutional: Reports: no symptoms HEENT: Reports: no symptoms Cardiovascular: Reports: no symptoms Respiratory: Reports: no symptoms Gastrointestinal/Abdominal: Reports: no symptoms Genitourinary: Reports: no symptoms Neurologic/Psychiatric: Reports: no symptoms Subjective 67 YO M admitted with edema. Now exacerbation of CHF. Cover for Int Med-Dr Alaniz Objective Last Vital Signs Date Time Temp Pulse Resp B/P (MAP) Pulse Ox O2 Delivery O2 Flow Rate FiO2 08/22/18 16:20 121/82 08/22/18 12:00 99.2 68 20 98 08/22/18 09:00 Room Air General Appearance: WD/WN, no apparent distress, alert EENT: PERRL/EOMI, normal ENT inspection, TMs normal Neck: non-tender, normal alignment, supple, normal inspection Cardiovascular: normal peripheral pulses, normal rate, regular rhythm, no gallop/murmur, no JVD Respiratory/Chest: chest wall non-tender, lungs clear, normal breath sounds, no respiratory distress, no accessory muscle use Abdomen: normal bowel sounds, non tender, soft, no organomegaly, no mass Extremities: normal range of motion, non-tender Edema: mild edema 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, no motor/sensory deficits Skin: normal pigmentation, warm/dry Laboratory Tests Test 08/22/18 05:35 White Blood Count 5.5 K/UL (4.8-10.8) Red Blood Count 4.45 M/UL (4.70-6.10) L Hemoglobin 13.0 G/DL (14.2-18.0) L Hematocrit 39.7 % (42.0-52.0) L Mean Corpuscular Volume 89 FL (80-99) Mean Corpuscular Hemoglobin 29.2 PG (27.0-31.0) Mean Corpuscular Hemoglobin Concent 32.7 G/DL (32.0-36.0) Red Cell Distribution Width 13.1 % (11.6-14.8) Platelet Count 176 K/UL (150-450) Mean Platelet Volume 9.0 FL (6.5-10.1) Neutrophils (%) (Auto) 49.5 % (45.0-75.0) Lymphocytes (%) (Auto) 28.5 % (20.0-45.0) Monocytes (%) (Auto) 15.7 % (1.0-10.0) H Eosinophils (%) (Auto) 4.4 % (0.0-3.0) H Basophils (%) (Auto) 1.9 % (0.0-2.0) Sodium Level 143 MMOL/L (136-145) Potassium Level 3.7 MMOL/L (3.5-5.1) Chloride Level 110 MMOL/L (98-107) H Carbon Dioxide Level 25 MMOL/L (21-32) Anion Gap 8 mmol/L (5-15) Blood Urea Nitrogen 20 mg/dL (7-18) H Creatinine 1.8 MG/DL (0.55-1.30) H Estimat Glomerular Filtration Rate 45.8 mL/min (>60) Glucose Level 86 MG/DL (74-106) Calcium Level 10.1 MG/DL (8.5-10.1) Troponin I 0.035 ng/mL (0.000-0.056) Intake and Output 08/21/18 08/22/18 18:59 06:59 Intake Total 590 ml 480 ml Balance 590 ml 480 ml Intake Oral 590 ml 480 ml # Voids 3 3 Assessment/Plan Problem List: (1) Atrial fibrillation Assessment & Plan: Continue metoprolol and eliquis-see cardiology note. (2) CHF (congestive heart failure) Assessment & Plan: Continue IV lasix. See cardiology note. (3) Peripheral edema Assessment & Plan: Due to CHF. Continue lasix (4) Chronic gout Status: progressing Rdoney Avilez MD Aug 22, 2018 17:36
[2018-08-22] MEDS ORDERED: cloNIDine 0.2mg Tab ORAL SCH (19:30)
--- NOTE | 2018-08-22 19:47 | NUR ---
NURSE NOTES:Patient received from Kelly Willingham A/Ezequiel/OXBrynn. Patient denies any patient this time . no sob / no n/v noted . no iv access when received (7a7p) .Stated MD notified and aware..call light within reach . bed in low position at all times . will continue to monitor .
--- NOTE | 2018-08-22 19:47 | NUR ---
HAND-OFF: Report given to Elena SANFORD. Patient is stable.
[2018-08-22 20:00] VITALS: BP 123/86
--- NOTE | 2018-08-22 21:44 | Diagnostic Imaging Report ---
APPROVED REPORT CPT Code: 75112 Present Symptoms Lower Extremity Edema: BILATERAL: Imaging reveals a patent deep venous system bilaterally. There is no evidence of thrombus within the femoral, popliteal or tibial segments. The greater saphenous veins are also within normal limits. Doppler indicates normal spontaneous flow within these segments.
--- NOTE | 2018-08-22 21:59 | Physician Query ---
--------- THIS DOCUMENT IS A PERMANENT PART OF THE MEDICAL RECORD --------- PLEASE COMPLETE DOCUMENT BEFORE SIGNING Dear Dr. Yelena TENA Date: 08/22/18 Arcade Game Technician/CDS Name: Clayton KENDALL Arcade Game Technician/CDS Phone No.: Exercise your independent professional judgment when responding to the query. Questions asked do not imply a particular answer is desired or expected. We greatly appreciate your clarification on this issue. CLINICAL FINDINGS SHOW: CREATININE = 1.9, 1.9, 1.8 mg/dl Please respond to the following question: Is there a diagnosis specific to the above laboratory values? If so please state below. PHYSICIAN RESPONSE: Condition Present on Admission: [] Yes [] No [] Clinically Undeterminable Please also document in your Progress Notes and/or Discharge Summary and indicate if the condition was present on admission. GARLAND TENA M.D. DATE & [facility]
--- NOTE | 2018-08-22 23:03 | Cardiology Progress Note ---
Assessment/Plan Status: stable Assessment/Plan Assessment/Plan Status: stable Assessment/Plan Assessment Edema Diastolic heart failure valvular heart disease Aortic stenosis mild moderate mitral regurgitation Gout Hypertension Atrial fibrillation Plan: AFIB - multifactorial -Eliquis -Metoprolol -No indication for cardioversion Valvular heart disease -Control heart rate goal 60-70 to reduce mitral regurgitant volume -No indication for surgical intervention Diastolic heart failure -Lasix 40 mg IV BID -Transition to PO LE edema -Compression stockings -:Low salt diet Hypertension -Metoprolol -Clonidine Monitor for orthostasis Subjective Cardiovascular: Reports: no symptoms Respiratory: Reports: no symptoms Gastrointestinal/Abdominal: Reports: no symptoms Genitourinary: Reports: no symptoms Subjective No acute events, vitals stable, no chest pain, LE US negative for DVT Objective Last 24 Hour Vital Signs Date Time Temp Pulse Resp B/P (MAP) Pulse Ox O2 Delivery O2 Flow Rate FiO2 08/22/18 16:20 121/82 08/22/18 16:00 98.2 82 20 115/73 (87) 99 08/22/18 12:00 99.2 68 20 123/96 (105) 98 08/22/18 09:38 73 161/110 08/22/18 09:00 Room Air 08/22/18 08:03 161/110 08/22/18 08:00 97.5 73 20 161/110 (127) 100 08/22/18 00:00 98.5 103 18 116/81 (93) 99 General Appearance: no apparent distress, alert EENT: PERRL/EOMI, normal ENT inspection, TMs normal, pharynx normal Neck: non-tender, normal alignment, supple, normal inspection, no JVD Rhythm: Afib Cardiovascular: normal peripheral pulses, normal rate, arrhythmia Respiratory/Chest: chest wall non-tender, lungs clear, normal breath sounds, no respiratory distress, no accessory muscle use, respiratory distress Abdomen: normal bowel sounds, non tender, soft, no organomegaly, no mass Extremities: normal range of motion, non-tender, moderate edema 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: machine 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0 FL (6.5-10.1) Neutrophils (%) (Auto) 49.5 % (45.0-75.0) Lymphocytes (%) (Auto) 28.5 % (20.0-45.0) Monocytes (%) (Auto) 15.7 % (1.0-10.0) H Eosinophils (%) (Auto) 4.4 % (0.0-3.0) H Basophils (%) (Auto) 1.9 % (0.0-2.0) Sodium Level 143 MMOL/L (136-145) Potassium Level 3.7 MMOL/L (3.5-5.1) Chloride Level 110 MMOL/L (98-107) H Carbon Dioxide Level 25 MMOL/L (21-32) Anion Gap 8 mmol/L (5-15) Blood Urea Nitrogen 20 mg/dL (7-18) H Creatinine 1.8 MG/DL (0.55-1.30) H Estimat Glomerular Filtration Rate 45.8 mL/min (>60) Glucose Level 86 MG/DL (74-106) Calcium Level 10.1 MG/DL (8.5-10.1) Troponin I 0.035 ng/mL (0.000-0.056) Tim Cardona MD Aug 22, 2018 23:03
[2018-08-23] VITALS: BP 127/83
[2018-08-23] MEDS: cloNIDine 0.2mg Tab ORAL SCH ×4 (00:16→23:21)
[2018-08-23 04:00] VITALS: BP 130/85
--- NOTE | 2018-08-23 07:42 | NUR ---
HAND-OFF: Report given to ADELE Jones Patient in stable condition .
--- NOTE | 2018-08-23 07:50 | NUR ---
NURSE NOTES: WALKING ROUNDS DONE WITH OUTGOING RN. PATIENT AWAKE IN BED. QUESTIONS ANSWERED. NEEDS MET. DISCUSSED PLAN OF CARE FOR THE DAY. VERBALIZED UNDERSTANDING. CALL LIGHT WITHIN REACH.
[2018-08-23 08:00] VITALS: BP 149/92
[2018-08-23] MEDS: Aspirin EC 81mg tab ORAL SCH (08:44)
[2018-08-23] MEDS: Metoprolol Succinate XL 50mg tab ORAL SCH (08:44)
[2018-08-23] MEDS: Eliquis 2.5mg tablet ORAL SCH ×2 (08:45→17:51)
[2018-08-23] MEDS: Furosemide 40mg tab ORAL SCH ×2 (08:45→21:48)
[2018-08-23 09:46] LABS: ANION GAP 6 mmol/L (5-15); BLOOD UREA NITROGEN 18 mg/dL (7-18); CALCIUM 10.4 MG/DL (8.5-10.1); CARBON DIOXIDE 27 MMOL/L (21-32); CHLORIDE 108 MMOL/L (98-107); CREATININE 1.7 MG/DL (0.55-1.30); POTASSIUM 3.7 MMOL/L (3.5-5.1); SODIUM 141 MMOL/L (136-145)
[2018-08-23 10:02] LABS: BASOPHILS % (AUTO) 1.7 % (0.0-2.0); HEMATOCRIT 43.4 % (42.0-52.0); HEMOGLOBIN 13.9 G/DL (14.2-18.0); LYMPHOCYTES % (AUTO) 14.3 % (20.0-45.0); MEAN CORPUSCULAR VOLUME 90 FL (80-99); MONOCYTES % (AUTO) 14.8 % (1.0-10.0); NEUTROPHILS % (AUTO) 67.3 % (45.0-75.0); PLATELET COUNT 195 K/UL (150-450); RED CELL DISTRIBUTION WIDTH 13.2 % (11.6-14.8); WHITE BLOOD COUNT 7.3 K/UL (4.8-10.8)
[2018-08-23 11:56] VITALS: BP 112/81
--- NOTE | 2018-08-23 12:40 | Pulmonology Progress Note ---
Assessment/Plan Problems: (1) Right-sided heart failure (2) Peripheral edema (3) Chronic gout (4) Back pain Assessment/Plan diuresing well continue lasix add morphine Clonidine is added f/u cardio recommendations watch intake and output check electrolytes dvt prophylaxis. Subjective ROS Limited/Unobtainable: No Constitutional: Reports: no symptoms HEENT: Repors: no symptoms Respiratory: Reports: no symptoms Allergies: Coded Allergies: No Known Allergies (Unverified , 08/08/18) Objective Last 24 Hour Vital Signs Date Time Temp Pulse Resp B/P (MAP) Pulse Ox O2 Delivery O2 Flow Rate FiO2 08/23/18 11:56 98.2 74 20 112/81 (91) 98 08/23/18 09:00 Room Air 08/23/18 08:44 60 149/90 08/23/18 08:00 149/90 08/23/18 08:00 97.8 60 20 149/92 (111) 99 08/23/18 04:00 98.4 85 20 130/85 (100) 100 08/23/18 00:16 127/83 08/23/18 00:00 98.3 74 20 127/83 (98) 100 08/22/18 21:00 Room Air 08/22/18 20:00 98.1 79 20 123/86 (98) 98 08/22/18 16:20 121/82 08/22/18 16:00 98.2 82 20 115/73 (87) 99 Intake and Output 08/22/18 08/23/18 19:00 07:00 Intake Total 944 ml 1452 ml Balance 944 ml 1452 ml Intake Oral 944 ml 1452 ml # Voids 8 General Appearance: WD/WN HEENT: normocephalic Respiratory/Chest: chest wall non-tender, lungs clear Cardiovascular: normal peripheral pulses, normal rate Abdomen: normal bowel sounds, soft, non tender Genitourinary: normal external genitalia 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 Complete Laboratory Tests 08/23/18 09:15: White Blood Count 7.3, Red Blood Count 4.80, Hemoglobin 13.9L, Hematocrit 43.4, Mean Corpuscular Volume 90, Mean Corpuscular Hemoglobin 28.9, Mean Corpuscular Hemoglobin Concent 32.0, Red Cell Distribution Width 13.2, Platelet Count 195, Mean Platelet Volume 8.2, Neutrophils (%) (Auto) 67.3, Lymphocytes (%) (Auto) 14.3L, Monocytes (%) (Auto) 14.8H, Eosinophils (%) (Auto) 2.0, Basophils (%) ( Auto) 1.7, Sodium Level 141, Potassium Level 3.7, Chloride Level 108H, Carbon Dioxide Level 27, Anion Gap 6, Blood Urea Nitrogen 18, Creatinine 1.7H, Estimat Glomerular Filtration Rate 49.0, Glucose Level 85, Calcium Level 10.4H Current Medications Medications (Trade) Dose Ordered Sig/Artie Route PRN Reason Start Time Stop Time Status Last Admin Dose Admin Acetaminophen (Tylenol) 650 mg Q4H PRN ORAL Fever 08/21/18 02:00 09/20/18 01:59 08/21/18 14:10 Albuterol/ Ipratropium (Albuterol/ Ipratropium) 3 ml Q4H PRN HHN Shortness of Breath 08/20/18 23:45 08/25/18 23:44 Apixaban (Eliquis) 2.5 mg BID ORAL 08/22/18 09:00 09/21/18 08:59 08/23/18 08:45 Aspirin (Ecotrin) 81 mg DAILY ORAL 08/21/18 09:00 09/20/18 08:59 08/23/18 08:44 Clonidine HCl (Catapres tab) 0.2 mg Q8H ORAL 08/22/18 16:00 09/21/18 07:59 08/23/18 08:00 Dextrose (Dextrose 50%) 25 ml Q30M PRN IV Hypoglycemia 08/20/18 23:45 09/19/18 23:44 Dextrose (Dextrose 50%) 50 ml Q30M PRN IV Hypoglycemia 08/20/18 23:45 09/19/18 23:44 Furosemide (Lasix) 40 mg EVERY 12 HOURS ORAL 08/21/18 09:00 09/20/18 08:59 08/23/18 08:45 Heparin Sodium/ Dextrose (Heparin 1000 units/500ml Premix) 1,000 unit ONCE PRN IV picc line placement 08/21/18 14:45 08/23/18 14:44 Lidocaine (Lidoderm 5% PATCH) 1 patch DAILY TDERMAL 08/21/18 09:00 09/20/18 08:59 08/23/18 08:45 Lidocaine HCl (Xylocaine 1% 30ml) 30 ml ONCE PRN INJ picc line placement 08/21/18 14:45 08/23/18 14:44 Metoprolol Succinate (Toprol XL) 50 mg DAILY ORAL 08/22/18 09:00 09/21/18 08:59 08/23/18 08:44 Morphine HCl (Morphine IR) 15 mg Q4H PRN ORAL For Pain 08/22/18 12:45 08/29/18 12:44 08/22/18 14:55 Morphine Sulfate (Morphine Sulfate) 4 mg Q4H PRN IM For Pain 08/22/18 12:45 08/29/18 12:44 Polyethylene Glycol (Miralax) 17 gm DAILYPRN PRN ORAL Constipation 08/20/18 23:45 09/19/18 23:44 Potassium Chloride (K-Dur) 20 meq DAILY ORAL 08/21/18 09:00 09/20/18 08:59 08/23/18 08:45 Temazepam (Restoril) 15 mg HSPRN PRN ORAL Insomnia 08/20/18 23:45 08/27/18 23:44 Abbey Espinoza MD Aug 23, 2018 12:39
--- NOTE | 2018-08-23 13:13 | Cardiology Progress Note ---
Assessment/Plan Status: stable Assessment/Plan Assessment/Plan Status: stable Assessment/Plan Assessment Edema Diastolic heart failure valvular heart disease Aortic stenosis mild moderate mitral regurgitation Gout Hypertension Atrial fibrillation Plan: AFIB - multifactorial -Eliquis -Metoprolol -No indication for cardioversion Valvular heart disease -Control heart rate goal 60-70 to reduce mitral regurgitant volume -No indication for surgical intervention Diastolic heart failure -Lasix 40 mg IV BID -Transition to PO LE edema -Compression stockings -:Low salt diet Hypertension -Metoprolol -Clonidine Monitor for orthostasis Subjective Cardiovascular: Reports: no symptoms Respiratory: Reports: no symptoms Gastrointestinal/Abdominal: Reports: no symptoms Genitourinary: Reports: no symptoms Subjective No acute events, vitals stable, no chest pain, LE US negative for DVT, no complaints, on room air Objective Last 24 Hour Vital Signs Date Time Temp Pulse Resp B/P (MAP) Pulse Ox O2 Delivery O2 Flow Rate FiO2 08/23/18 11:56 98.2 74 20 112/81 (91) 98 08/23/18 09:00 Room Air 08/23/18 08:44 60 149/90 08/23/18 08:00 149/90 08/23/18 08:00 97.8 60 20 149/92 (111) 99 08/23/18 04:00 98.4 85 20 130/85 (100) 100 08/23/18 00:16 127/83 08/23/18 00:00 98.3 74 20 127/83 (98) 100 08/22/18 21:00 Room Air 08/22/18 20:00 98.1 79 20 123/86 (98) 98 08/22/18 16:20 121/82 08/22/18 16:00 98.2 82 20 115/73 (87) 99 General Appearance: no apparent distress, alert EENT: PERRL/EOMI, normal ENT inspection, TMs normal, pharynx normal Neck: non-tender, normal alignment, supple, normal inspection, no JVD Rhythm: NSR Cardiovascular: normal peripheral pulses, normal rate, regular rhythm Respiratory/Chest: chest wall non-tender, lungs clear, normal breath sounds, no respiratory distress, no accessory muscle use Abdomen: normal bowel sounds, non tender, soft, no organomegaly, no mass Extremities: normal range of motion, non-tender 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, no motor/sensory deficits Intake and Output 08/22/18 08/23/18 19:00 07:00 Intake Total 944 ml 1452 ml Balance 944 ml 1452 ml Intake Oral 944 ml 1452 ml # Voids 8 Laboratory Tests Test 08/23/18 09:15 White Blood Count 7.3 K/UL (4.8-10.8) Red Blood Count 4.80 M/UL (4.70-6.10) Hemoglobin 13.9 G/DL (14.2-18.0) L Hematocrit 43.4 % (42.0-52.0) Mean Corpuscular Volume 90 FL (80-99) Mean Corpuscular Hemoglobin 28.9 PG (27.0-31.0) Mean Corpuscular Hemoglobin Concent 32.0 G/DL (32.0-36.0) Red Cell Distribution Width 13.2 % (11.6-14.8) Platelet Count 195 K/UL (150-450) Mean Platelet Volume 8.2 FL (6.5-10.1) Neutrophils (%) (Auto) 67.3 % (45.0-75.0) Lymphocytes (%) (Auto) 14.3 % (20.0-45.0) L Monocytes (%) (Auto) 14.8 % (1.0-10.0) H Eosinophils (%) (Auto) 2.0 % (0.0-3.0) Basophils (%) (Auto) 1.7 % (0.0-2.0) Sodium Level 141 MMOL/L (136-145) Potassium Level 3.7 MMOL/L (3.5-5.1) Chloride Level 108 MMOL/L (98-107) H Carbon Dioxide Level 27 MMOL/L (21-32) Anion Gap 6 mmol/L (5-15) Blood Urea Nitrogen 18 mg/dL (7-18) Creatinine 1.7 MG/DL (0.55-1.30) H Estimat Glomerular Filtration Rate 49.0 mL/min (>60) Glucose Level 85 MG/DL (74-106) Calcium Level 10.4 MG/DL (8.5-10.1) H Microbiology Date/Time Source Procedure Growth Status 08/21/18 01:33 Nasal Nares MRSA Culture - Final NO METHICILLIN RESISTANT STAPH AUREUS... Complete FilsoofTim. MD Aug 23, 2018 13:13
--- NOTE | 2018-08-23 13:52 | Cardiology Report ---
APPROVED REPORT EXAM: Two-dimensional and M-mode echocardiogram with Doppler and color Doppler. INDICATION Left ventricular function. M-Mode DIMENSIONS IVSd1.8 (0.7-1.1cm)Left Atrium (MM)3.9 (1.6-4.0cm) LVDd3.3 (3.5-5.6cm)Aortic Root4.0 (2.0-3.7cm) PWd1.5 (0.7-1.1cm)Aortic Cusp Exc.2.3 (1.5-2.0cm) LVDs1.9 (2.5-4.0cm) PWs2.0 cm Normal left ventricular chamber size. Mildly globally depressed systolic function and wall motion. Left ventricular ejection fraction estimated to be 40 %. Mild left ventricular hypertrophy. No evidence of pericardial effusion. Mild bi-atrial enlargement. Mild ventricular enlargement. Mildn focal aortic valve sclerosis with adequate cusp excursion. Mildly thickened mitral valve leaflets with normal excursion. Mild mitral annulus and aortic root calcification. Pulmonic valve not well visualized. Normal tricuspid valve structure. IVC at normal size with physiologic collapse. A color flow and spectral Doppler study was performed and revealed: Trace aortic regurgitation. Peak aortic valve gradient of 16 mm Hg and a mean of 8 mmHg. Aortic valve area 1.5 cm2 calculated by continuity equation. Moderate mitral regurgitation. Normal left ventricular diastolic function. Mild tricuspid regurgitation. Tricuspid systolic velocities suggests peak right ventricular systolic pressure of 31 mmHg.
--- NOTE | 2018-08-23 15:16 | Internal Med Progress Note ---
Subjective Date of Service: Aug 23, 2018 Physician Name AvilezRodney mercado Attending Physician Mariano Alaniz MD Current Medications Medications (Trade) Dose Ordered Sig/Artie Route PRN Reason Start Time Stop Time Status Last Admin Dose Admin Acetaminophen (Tylenol) 650 mg Q4H PRN ORAL Fever 08/21/18 02:00 09/20/18 01:59 08/21/18 14:10 Albuterol/ Ipratropium (Albuterol/ Ipratropium) 3 ml Q4H PRN HHN Shortness of Breath 08/20/18 23:45 08/25/18 23:44 Apixaban (Eliquis) 2.5 mg BID ORAL 08/22/18 09:00 09/21/18 08:59 08/23/18 08:45 Aspirin (Ecotrin) 81 mg DAILY ORAL 08/21/18 09:00 09/20/18 08:59 08/23/18 08:44 Clonidine HCl (Catapres tab) 0.2 mg Q8H ORAL 08/22/18 16:00 09/21/18 07:59 08/23/18 08:00 Dextrose (Dextrose 50%) 25 ml Q30M PRN IV Hypoglycemia 08/20/18 23:45 09/19/18 23:44 Dextrose (Dextrose 50%) 50 ml Q30M PRN IV Hypoglycemia 08/20/18 23:45 09/19/18 23:44 Furosemide (Lasix) 40 mg EVERY 12 HOURS ORAL 08/21/18 09:00 09/20/18 08:59 08/23/18 08:45 Lidocaine (Lidoderm 5% PATCH) 1 patch DAILY TDERMAL 08/21/18 09:00 09/20/18 08:59 08/23/18 08:45 Metoprolol Succinate (Toprol XL) 75 mg DAILY ORAL 08/24/18 09:00 09/21/18 08:59 Morphine HCl (Morphine IR) 15 mg Q4H PRN ORAL For Pain 08/22/18 12:45 08/29/18 12:44 08/22/18 14:55 Morphine Sulfate (Morphine Sulfate) 4 mg Q4H PRN IM For Pain 08/22/18 12:45 08/29/18 12:44 Polyethylene Glycol (Miralax) 17 gm DAILYPRN PRN ORAL Constipation 08/20/18 23:45 09/19/18 23:44 Potassium Chloride (K-Dur) 20 meq DAILY ORAL 08/21/18 09:00 09/20/18 08:59 08/23/18 08:45 Temazepam (Restoril) 15 mg HSPRN PRN ORAL Insomnia 08/20/18 23:45 08/27/18 23:44 Allergies: Coded Allergies: No Known Allergies (Unverified , 08/08/18) ROS Limited/Unobtainable: No Constitutional: Reports: no symptoms HEENT: Reports: no symptoms Cardiovascular: Reports: no symptoms Respiratory: Reports: no symptoms Genitourinary: Reports: no symptoms Neurologic/Psychiatric: Reports: no symptoms Subjective 67 YO M admitted with edema. Now exacerbation of CHF. Cover for Int Ajit-Dr Alaniz Objective Last Vital Signs Date Time Temp Pulse Resp B/P (MAP) Pulse Ox O2 Delivery O2 Flow Rate FiO2 08/23/18 11:56 98.2 74 20 112/81 (91) 98 08/23/18 09:00 Room Air Laboratory Tests Test 08/23/18 09:15 White Blood Count 7.3 K/UL (4.8-10.8) Red Blood Count 4.80 M/UL (4.70-6.10) Hemoglobin 13.9 G/DL (14.2-18.0) L Hematocrit 43.4 % (42.0-52.0) Mean Corpuscular Volume 90 FL (80-99) Mean Corpuscular Hemoglobin 28.9 PG (27.0-31.0) Mean Corpuscular Hemoglobin Concent 32.0 G/DL (32.0-36.0) Red Cell Distribution Width 13.2 % (11.6-14.8) Platelet Count 195 K/UL (150-450) Mean Platelet Volume 8.2 FL (6.5-10.1) Neutrophils (%) (Auto) 67.3 % (45.0-75.0) Lymphocytes (%) (Auto) 14.3 % (20.0-45.0) L Monocytes (%) (Auto) 14.8 % (1.0-10.0) H Eosinophils (%) (Auto) 2.0 % (0.0-3.0) Basophils (%) (Auto) 1.7 % (0.0-2.0) Differential Total Cells Counted 100 Neutrophils % (Manual) 68 % (45-75) Lymphocytes % (Manual) 14 % (20-45) L Monocytes % (Manual) 16 % (1-10) H Eosinophils % (Manual) 2 % (0-3) Basophils % (Manual) 0 % (0-2) Band Neutrophils 0 % (0-8) Platelet Estimate Adequate Platelet Morphology Giant Platelets Occasional Red Blood Cell Morphology Normal Sodium Level 141 MMOL/L (136-145) Potassium Level 3.7 MMOL/L (3.5-5.1) Chloride Level 108 MMOL/L (98-107) H Carbon Dioxide Level 27 MMOL/L (21-32) Anion Gap 6 mmol/L (5-15) Blood Urea Nitrogen 18 mg/dL (7-18) Creatinine 1.7 MG/DL (0.55-1.30) H Estimat Glomerular Filtration Rate 49.0 mL/min (>60) Glucose Level 85 MG/DL (74-106) Calcium Level 10.4 MG/DL (8.5-10.1) H Microbiology Date/Time Source Procedure Growth Status 08/21/18 01:33 Nasal Nares MRSA Culture - Final NO METHICILLIN RESISTANT STAPH AUREUS... Complete Intake and Output 08/22/18 08/23/18 19:00 07:00 Intake Total 944 ml 1452 ml Balance 944 ml 1452 ml Intake Oral 944 ml 1452 ml # Voids 8 Objective General Appearance: WD/WN, no apparent distress, alert EENT: PERRL/EOMI, normal ENT inspection, TMs normal Neck: non-tender, normal alignment, supple, normal inspection Cardiovascular: normal peripheral pulses, normal rate, regular rhythm, no gallop/murmur, no JVD Respiratory/Chest: chest wall non-tender, lungs clear, normal breath sounds, no respiratory distress, no accessory muscle use Abdomen: normal bowel sounds, non tender, soft, no organomegaly, no mass Extremities: normal range of motion, non-tender Edema: mild edema 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 (2) CHF (congestive heart failure) Assessment & Plan: Continue IV lasix-transition to oral. See cardiology note. (3) Peripheral edema Assessment & Plan: Due to CHF. Continue lasix (4) Chronic gout Status: not improved Rodney Avilez MD Aug 23, 2018 15:16
--- NOTE | 2018-08-23 15:36 | Cardiology Report ---
APPROVED REPORT EKG Measurement Heart [id number] Atrial fibrillation Nonspecific intraventricular conduction delay Abnormal ECG
[2018-08-23 16:00] VITALS: BP 120/86
--- NOTE | 2018-08-23 18:48 | NUR ---
NURSE NOTES: UNEVENTFUL DAY. VSS.AFEBRILE. AMBULATING AROUND UNIT. DENIES SOB.
--- NOTE | 2018-08-23 19:15 | NUR ---
HAND-OFF: Report given to MANJU NAIK LVN.
[2018-08-23 20:00] VITALS: BP 135/88
--- NOTE | 2018-08-23 21:48 | NUR ---
NURSE NOTES:Patient VS 97.7 P 57/ min. R 18/min B/P 135/ 88 mm hg. spo2 100% .patient denies any pain . no s/s of distress. after taking scheduled medications Lasix 40 mg p o . Patient stated "what other medications can i have right now." ? explained to patient that he has Clonidine at midnight and will be given on scheduled time . patient continue to ask his clonidine and disagree with the frequency of medications. Jean SOLANO notified and aware . call light within reach . bed in low position at all times . will continue to monitor patient .
--- NOTE | 2018-08-23 23:21 | NUR ---
NURSE NOTES:Patient vss, afebrile . scheduled clonidine 0.2mg po was given by Asif Pena . will continue to monitor .
[2018-08-24] VITALS (7 sets, daily range): BP systolic 121–141; BP diastolic 65–89
--- NOTE | 2018-08-24 00:12 | NUR ---
NURSE NOTES:Patient asleep during rounds . will continue to monitor.
[2018-08-24 06:33] LABS: BASOPHILS % (AUTO) 1.5 % (0.0-2.0); HEMATOCRIT 46.9 % (42.0-52.0); HEMOGLOBIN 15.3 G/DL (14.2-18.0); LYMPHOCYTES % (AUTO) 21.3 % (20.0-45.0); MEAN CORPUSCULAR VOLUME 90 FL (80-99); MONOCYTES % (AUTO) 13.8 % (1.0-10.0); NEUTROPHILS % (AUTO) 60.6 % (45.0-75.0); PLATELET COUNT 206 K/UL (150-450); RED BLOOD COUNT 5.24 M/UL (4.70-6.10); RED CELL DISTRIBUTION WIDTH 13.2 % (11.6-14.8); WHITE BLOOD COUNT 7.5 K/UL (4.8-10.8)
[2018-08-24 07:13] LABS: ALANINE AMINOTRANSFERASE 19 U/L (12-78); ALBUMIN 3.1 G/DL (3.4-5.0); ALBUMIN/GLOBULIN RATIO 0.9 (1.0-2.7); ALKALINE PHOSPHATASE 96 U/L (46-116); ANION GAP 9 mmol/L (5-15); ASPARTATE AMINO TRANSFERASE 19 U/L (15-37); BILIRUBIN,TOTAL 0.3 MG/DL (0.2-1.0); BLOOD UREA NITROGEN 23 mg/dL (7-18); CALCIUM 10.7 MG/DL (8.5-10.1); CARBON DIOXIDE 25 MMOL/L (21-32); CHLORIDE 108 MMOL/L (98-107); CREATININE 1.8 MG/DL (0.55-1.30); POTASSIUM 3.8 MMOL/L (3.5-5.1); SODIUM 142 MMOL/L (136-145)
--- NOTE | 2018-08-24 07:20 | NUR ---
HAND-OFF: Report given to MARC Cota Patient in stable condition.
--- NOTE | 2018-08-24 07:55 | NUR ---
nurse notes received patient awake, alert, orientedx4 no sign of distress, c/o pain pain meds will be given as ordered, plan of care was discussed verbalized understanding , 4P;s in progress call light w/n reach, will continue to monitor patient condition christopher jones
[2018-08-24] MEDS: cloNIDine 0.2mg Tab ORAL SCH (07:58)
[2018-08-24] MEDS: Morphine IR 15mg tab ORAL PRN (07:58)
[2018-08-24] MEDS: Eliquis 2.5mg tablet ORAL SCH (08:44)
[2018-08-24] MEDS: Furosemide 40mg tab ORAL SCH (08:44)
[2018-08-24] MEDS: Aspirin EC 81mg tab ORAL SCH (08:46)
[2018-08-24] MEDS ORDERED: Metoprolol Succinate XL 25mg tab ORAL SCH (09:00)
[2018-08-24] MEDS ORDERED: Morphine Sulfate 2mg/ml Inj(IV/IM USE ONLY) IM PRN ×2 (11:15→16:15)
[2018-08-24] MEDS ORDERED: NORCO 10-325 T1 EACH ORAL (13:16)
[2018-08-24] MEDS ORDERED: ELIQUIS2.5 MG ORAL (13:16)
--- NOTE | 2018-08-24 13:40 | NUR ---
nurse notes seen by Dr Espinoza with order noted , discharge to home obtained, patient agreed with the plan of care, discharge instruction packet handed to patient all questions, answered verbalized understanding christopher castañeda
--- NOTE | 2018-08-24 14:09 | NUR ---
nurse notes Dr Espinoza discharge the patient , but forget to give norco prescription, called Dr Espinoza regarding norco prescription of Robin Charles ,stated Dr Avilez is coming, will left message to Dr Avilez tel, awaiting for his call .christopher jones
[2018-08-24] MEDS ORDERED: Albuterol/Ipratropium 3ml neb HHN PRN (16:15)
[2018-08-24] MEDS ORDERED: Morphine IR 15mg tab ORAL PRN (16:15)
[2018-08-24] MEDS ORDERED: Miralax 17gm pkt ORAL PRN (16:15)
[2018-08-24] MEDS ORDERED: cloNIDine 0.2mg Tab ORAL SCH (16:15)
[2018-08-24] MEDS ORDERED: Eliquis 2.5mg tablet ORAL SCH (18:00)
--- NOTE | 2018-08-24 19:15 | NUR ---
nurse notes Dr Avilez came, pain prescription given , refused eliquis prescription patient stated I dont need that christopher jones
--- NOTE | 2018-08-24 19:23 | NUR ---
nurse notes discharged in stable condition with all belongings taken patient left the unit by himself , refused to be wheeled, christopher jones
--- NOTE | 2018-08-24 19:41 | Internal Med Progress Note ---
Subjective Date of Service: Aug 24, 2018 Physician Name Rodney Avilez Attending Physician Mariano Alaniz MD Allergies: Coded Allergies: No Known Allergies (Unverified , 08/08/18) ROS Limited/Unobtainable: No Constitutional: Reports: no symptoms HEENT: Reports: no symptoms Cardiovascular: Reports: no symptoms Respiratory: Reports: no symptoms Gastrointestinal/Abdominal: Reports: no symptoms Genitourinary: Reports: no symptoms Neurologic/Psychiatric: Reports: no symptoms Subjective 67 YO M admitted with edema. Now exacerbation of CHF. Cover for Int Med-Dr Alaniz Objective Last Vital Signs Date Time Temp Pulse Resp B/P (MAP) Pulse Ox O2 Delivery O2 Flow Rate FiO2 08/24/18 16:15 130/65 08/24/18 16:00 97.9 64 18 99 08/24/18 08:07 Room Air Laboratory Tests Test 08/24/18 06:00 White Blood Count 7.5 K/UL (4.8-10.8) Red Blood Count 5.24 M/UL (4.70-6.10) Hemoglobin 15.3 G/DL (14.2-18.0) Hematocrit 46.9 % (42.0-52.0) Mean Corpuscular Volume 90 FL (80-99) Mean Corpuscular Hemoglobin 29.1 PG (27.0-31.0) Mean Corpuscular Hemoglobin Concent 32.5 G/DL (32.0-36.0) Red Cell Distribution Width 13.2 % (11.6-14.8) Platelet Count 206 K/UL (150-450) Mean Platelet Volume 8.4 FL (6.5-10.1) Neutrophils (%) (Auto) 60.6 % (45.0-75.0) Lymphocytes (%) (Auto) 21.3 % (20.0-45.0) Monocytes (%) (Auto) 13.8 % (1.0-10.0) H Eosinophils (%) (Auto) 3.0 % (0.0-3.0) Basophils (%) (Auto) 1.5 % (0.0-2.0) Sodium Level 142 MMOL/L (136-145) Potassium Level 3.8 MMOL/L (3.5-5.1) Chloride Level 108 MMOL/L (98-107) H Carbon Dioxide Level 25 MMOL/L (21-32) Anion Gap 9 mmol/L (5-15) Blood Urea Nitrogen 23 mg/dL (7-18) H Creatinine 1.8 MG/DL (0.55-1.30) H Estimat Glomerular Filtration Rate 45.8 mL/min (>60) Glucose Level 90 MG/DL (74-106) Calcium Level 10.7 MG/DL (8.5-10.1) H Total Bilirubin 0.3 MG/DL (0.2-1.0) Aspartate Amino Transf (AST/SGOT) 19 U/L (15-37) Alanine Aminotransferase (ALT/SGPT) 19 U/L (12-78) Alkaline Phosphatase 96 U/L (46-116) Pro-B-Type Natriuretic Peptide 1309 pg/mL (0-125) H Total Protein 6.7 G/DL (6.4-8.2) Albumin 3.1 G/DL (3.4-5.0) L Globulin 3.6 g/dL Albumin/Globulin Ratio 0.9 (1.0-2.7) L Intake and Output 08/23/18 08/24/18 19:00 07:00 Intake Total 590 ml 1860 ml Balance 590 ml 1860 ml Intake Oral 590 ml 1860 ml # Voids 10 1 Objective General Appearance: WD/WN, no apparent distress, alert EENT: PERRL/EOMI, normal ENT inspection, TMs normal Neck: non-tender, normal alignment, supple, normal inspection Cardiovascular: normal peripheral pulses, normal rate, regular rhythm, no gallop/murmur, no JVD Respiratory/Chest: chest wall non-tender, lungs clear, normal breath sounds, no respiratory distress, no accessory muscle use Abdomen: normal bowel sounds, non tender, soft, no organomegaly, no mass Extremities: normal range of motion, non-tender Edema: mild edema Neurologic: director customer 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 normal, no motor/sensory deficits Skin: normal pigmentation, warm/dry Assessment/Plan Problem List: (1) Atrial fibrillation Assessment & Plan: Continue metoprolol and eliquis-see cardiology note. (2) CHF (congestive heart failure) Assessment & Plan: Continue IV lasix-transition to oral. See cardiology note. (3) Peripheral edema Assessment & Plan: Due to CHF. Continue lasix (4) Chronic gout Status: stable Assessment/Plan Discharge home today Rodney Avilez MD Aug 24, 2018 19:41
[2018-08-24] MEDS ORDERED: Furosemide 40mg tab ORAL SCH (21:00)
--- NOTE | 2018-08-25 07:54 | Discharge Summary ---
Discharge Summary Discharge Summary _ DATE OF ADMISSION: 08/20/2018 DATE OF DISCHARGE: 08/24/2018 ATTENDING MD: Dr. Mariano Alaniz DISCHARGED BY: Dr. Abbey Espinoza CONSULTANTS: Dr. Abbey Cardona BRIEF HOSPITAL COURSE: Patient is a 67-year-old -[place]ian male, who presented with chief complaint of swelling of the bilateral lower extremities. Patient has a history of gout. He has history of right-sided heart failure. Patient was unable to give appropriate history as he was unable to participate with the interview as patient was angry. He has medical history significant for atrial fibrillation, gout, low back pain, diabetes mellitus left retinal detachment and congestive heart failure. Records patient was hospitalized at [facility] a week ago. He ate salty foods and in the morning his legs were swollen. He complained of pain, 10/10, burning and constant. On evaluation at ED, vital signs were stable. Blood work did not show any leukocytosis. Hemoglobin was 13, hematocrit 41. BUN 27, creatinine was elevated to 1.9. Uric acid was elevated to 9.4. Troponin was negative. ProBNP 1036. Urine toxicology was negative. EKG showed atrial fibrillation with no acute changes. Chest x-ray showed no consolidation, no effusion, no pneumothorax. He was given morphine. He was given colchicine. He was then admitted for evaluation of peripheral edema, acute gouty attack, and renal injury. Infrastructure Administrator and mold setter were consulted. Venous duplex of the lower extremity was negative for acute DVT bilaterally. Echocardiogram done showed ejection fraction of 40%, trace aortic regurgitation, and moderate mitral regurgitation. He was given Lasix for diuresis. He was given aspirin and metoprolol. He was given Eliquis for anticoagulation. There was no indication for cardioversion. He had elevated blood pressure. He was given clonidine. Lasix was transitioned to p.o. He was given potassium replacement. He was eventually discharged home. FINAL DIAGNOSES: Acute on chronic diastolic CHF Acute on chronic renal failure Peripheral edema Acute on chronic gout Atrial fibrillation Moderate mitral regurgitation Valvular heart disease Hypertension Back pain DISPOSITION: Patient was discharged home. DISCHARGE MEDICATIONS: Refer to Discharge Medication List. DISCHARGE INSTRUCTIONS: Follow-up in a week. I have been assigned to complete a discharge summary on this account, I was not involved with the patient's management. Cori Gustafson NP Aug 25, 2018 07:54
[2018-08-25] MEDS ORDERED: Aspirin EC 81mg tab ORAL SCH (09:00)
[2018-08-25] MEDS ORDERED: Metoprolol Succinate XL 25mg tab ORAL SCH (09:00)
== END 2018-08-24 19:20 | disposition home or self-care (01) | DRG 291 ==
LOC: EMR 20:29 → 3E 20:36 → EDBEDREQ 08-21 00:46 → UNDODISIN 08-24 13:45
DX: I13.0 Hypertensive heart and chronic kidney disease with heart failure and stage 1 through stage 4 chronic kidney disease, or unspecified chronic kidney disease (principal); I50.33 Acute on chronic diastolic (congestive) heart failure; N17.9 Acute kidney failure, unspecified; N18.9 Chronic kidney disease, unspecified; E11.22 Type 2 diabetes mellitus with diabetic chronic kidney disease; M1A.9XX0 Chronic gout, unspecified, without tophus (tophi); I48.91 Unspecified atrial fibrillation; M10.9 Gout, unspecified; I34.0 Nonrheumatic mitral (valve) insufficiency; G89.29 Other chronic pain; M54.9 Dorsalgia, unspecified; Z79.82 Long term (current) use of aspirin; I35.0 Nonrheumatic aortic (valve) stenosis
CPT/HCPCS: 36415; 71045; 80048; 80053; 80069; 80307; 81003; 82550; 83880; 84484; 84550; 85007; 85025; 85060; 85610; 85730; 87081; 93005; 93306; 93970; 96372; 96374; 96375; 99285; J8499

== ENCOUNTER 2018-08-27 17:10 | Emergency (ER) | payer MEDICARE, MEDICAID ==
[~2018-08-27] VITALS: Ht 177.8 cm; Wt 99.8 kg
[~2018-08-27 17:10] MED LIST changes: +ELIQUIS2.5 MG ORAL; +NORCO 10-325 T1 EACH ORAL
[2018-08-27 17:24] VITALS: BP 130/95
[2018-08-27 18:23] VITALS: BP 120/75
--- NOTE | 2018-08-27 19:06 | Emergency Room Report ---
History of Present Illness General Chief Complaint: Edema Source: Patient Present Illness HPI Patient presents with complaints of swelling to his legs Denies any headache Denies any chest pain or shortness of breath Patient had a recent hospitalization here For similar complaint Denies any other fall or trauma Patient reports that when he was dispositioned he did not have any medication Otherwise denies any exertional dyspnea Allergies: Coded Allergies: No Known Allergies (Unverified , 08/08/18) Patient History Past Medical History: see triage record Pertinent Family History: none Reviewed Nursing Documentation: PMH: Agreed; PSxH: Agreed Nursing Documentation-PMH Past Medical History: No History, Except For Hx Cardiac Problems: Yes - afib, chf Hx Hypertension: Yes Hx Pacemaker: No - RETINAL DETACHMENT,RIGHT EYE Hx Asthma: No Hx COPD: No Hx Diabetes: No Hx Cancer: No Hx Gastrointestinal Problems: No Hx Dialysis: No - CRF Hx Neurological Problems: No - GOUT Hx Cerebrovascular Accident: No Hx Seizures: No Review of Systems All Other Systems: negative except mentioned in HPI Physical Exam Vital Signs Date Time Temp Pulse Resp B/P (MAP) Pulse Ox O2 Delivery O2 Flow Rate FiO2 08/27/18 17:17 98.1 131 21 133/99 98 Room Air 08/27/18 17:24 97 Sp02 EP Interpretation: reviewed, normal General Appearance: well appearing, no apparent distress Head: normocephalic, atraumatic Eyes: bilateral eye PERRL, bilateral eye EOMI ENT: hearing grossly normal, normal pharynx, TMs + canals normal, uvula midline Neck: full range of motion, supple, no meningismus, no bony tend Respiratory: lungs clear, normal breath sounds, no rhonchi, no respiratory distress, no retraction, no accessory muscle use Cardiovascular #1: normal peripheral pulses, regular rate, rhythm, no gallop, no JVD, no murmur Gastrointestinal: normal bowel sounds, non tender, soft, no mass, no organomegaly, non-distended, no guarding, no hernia, no pulsatile mass, no rebound Genitourinary: no CVA tenderness Musculoskeletal: normal inspection Neurologic: oriented x3, responsive, boilerhouse mechanic III-XII nml as tested, motor strength/ tone normal, sensory intact Psychiatric: mood/affect normal Skin: other - 2 out of 4 dependent edema bilaterally Lymphatic: normal inspection Medical Decision Making Diagnostic Impression: Primary Impression: Edema ER Course Patient shows signs of bilateral lower extremity edema Patient has had multiple visits with recent hospitalization as well There is significant chronicity to the patient's complaints At this time lung sounds are clear saturating well does not appear in acute respiratory distress and is stable for close outpatient follow-up Last Vital Signs Date Time Temp Pulse Resp B/P (MAP) Pulse Ox O2 Delivery O2 Flow Rate FiO2 08/27/18 18:23 98.1 65 22 120/75 98 Room Air 97 Status: unchanged Disposition: HOME, SELF-CARE Condition: Stable Referrals: [facility],REFERRING (PCP) Patient Instructions: Edema, [id number] Additional Instructions: Patient is provided with the discharge instructions notified to follow up with primary doctor in the next 2-3 days otherwise return to the er with any worsening symptoms. Please note that this report is being documented using [email or web address] technology. This can lead to erroneous entry secondary to incorrect interpretation by the dictating instrument. Christie Celeste DO Aug 27, 2018 19:06
[2018-08-27] MEDS ORDERED: CATAPRES0.2 MG ORAL (19:34)
== END 2018-08-27 18:24 | disposition home or self-care (01) ==
LOC: EMR 17:55
DX: R60.0 Localized edema (principal); I11.0 Hypertensive heart disease with heart failure; I50.9 Heart failure, unspecified; I48.91 Unspecified atrial fibrillation
CPT/HCPCS: 99282

== ENCOUNTER 2018-09-25 04:36 | Emergency (ER) | payer MEDICARE, MEDICAID ==
[~2018-09-25] VITALS: Ht 177.8 cm; Wt 99.8 kg
[2018-09-25 04:44] VITALS: BP 139/80
--- NOTE | 2018-09-25 04:44 | NUR ---
ED Nurse Note: PT CAME TO ED FOR MEDICATIN REFILL AND ALSO C/O BILATERAL KNEE AND FOOT PAIN
[2018-09-25] MEDS ORDERED: TRAMADOL HCL50 MG ORAL (04:54)
[2018-09-25] MEDS ORDERED: CLONIDINE HCL0.2 MG PO (04:54)
--- NOTE | 2018-09-25 04:54 | Emergency Room Report ---
History of Present Illness General Chief Complaint: Medication Refill Source: Patient Present Illness HPI This is a 68-year-old male with a history of high blood pressure and CHF. Also has a history of chronic pain. Patient presents with chief complaint of needing refill on his clonidine. His been out of it. He takes it as needed. Also wants pain medication. Denies any fever chills but denies any nausea vomiting. Nothing made it better. Nothing made it worse. No other complaint. Pain is 8 out of 10. Allergies: Coded Allergies: No Known Allergies (Unverified , 08/08/18) Patient History Past Medical History: see triage record, old chart reviewed, HTN, CHF Past Surgical History: other Pertinent Family History: none Social History: Denies: smoking Immunizations: other Reviewed Nursing Documentation: PMH: Agreed; PSxH: Agreed Nursing Documentation-PMH Hx Cardiac Problems: Yes - afib, chf Hx Hypertension: Yes Hx Pacemaker: No - RETINAL DETACHMENT,RIGHT EYE Hx Asthma: No Hx COPD: No Hx Diabetes: No Hx Cancer: No Hx Gastrointestinal Problems: No Hx Dialysis: No - CRF Hx Neurological Problems: No - GOUT Hx Cerebrovascular Accident: No Hx Seizures: No Review of Systems Eye: Denies: eye pain, blurred vision ENT: Denies: ear pain, nose congestion, throat swelling Respiratory: Denies: cough, shortness of breath Cardiovascular: Denies: chest pain, palpitations Gastrointestinal: Denies: abdominal pain, diarrhea, nausea, vomiting Musculoskeletal: Denies: back pain, joint pain Skin: Denies: rash Neurological: Denies: headache, numbness Endocrine: Denies: increased thirst, increased urine Hematologic/Lymphatic: Denies: easy bruising All Other Systems: negative except mentioned in HPI Physical Exam Vital Signs Date Time Temp Pulse Resp B/P (MAP) Pulse Ox O2 Delivery O2 Flow Rate FiO2 09/25/18 04:38 97.9 59 20 139/80 98 Room Air vitals unremarkable Sp02 EP Interpretation: reviewed, normal General Appearance: well appearing, no apparent distress, alert Head: normocephalic, atraumatic Eyes: bilateral eye PERRL, bilateral eye EOMI ENT: hearing grossly normal, normal pharynx Neck: full range of motion, supple, no meningismus Respiratory: chest non-tender, lungs clear, normal breath sounds Cardiovascular #1: regular rate, rhythm, no murmur Gastrointestinal: normal bowel sounds, non tender, no mass, no organomegaly, no bruit, non-distended Musculoskeletal: back normal, gait/station normal, normal range of motion, swelling - 1+ edema Psychiatric: mood/affect normal Skin: warm/dry Medical Decision Making Diagnostic Impression: Primary Impression: Edema Qualified Codes: R60.9 - Edema, unspecified Additional Impression: Encounter for medication refill ER Course Patient presents with needing refill on his medication and chronic pain. Lungs are clear. This patient well-known to me. He goes to different hospitals for pain and refills her medication. On the [employer] system he has numerous doctors for different type of narcotics. Last Vital Signs Date Time Temp Pulse Resp B/P (MAP) Pulse Ox O2 Delivery O2 Flow Rate FiO2 09/25/18 04:44 97.9 59 20 139/80 98 Room Air Status: unchanged Disposition: HOME, SELF-CARE Condition: Stable Scripts Tramadol Hcl* (ULTRAM*) 50 Mg Tablet 50 MG ORAL Q6H PRN for For Pain, #10 TAB 0 Refills Prov: Rajinder Coyle MD 09/25/18 Clonidine Hcl (CLONIDINE HCL) 0.2 Mg Tablet 0.2 MG PO TID, #30 TAB Prov: Rajinder Coyle MD 09/25/18 Patient Instructions: Medicine Refill at the Emergency Department Additional Instructions: Follow-up with your doctor in 7 days. Return if worse. Rajinder Coyle MD Sep 25, 2018 04:54
[2018-09-25] MEDS ORDERED: cloNIDine 0.2mg Tab ORAL ONE (05:00)
[2018-09-25 05:01] VITALS: BP 139/80
--- NOTE | 2018-09-25 05:01 | NUR ---
ER DISCHARGE NOTE: Patient is cleared to be discharged per ERMD, pt is aox4, on room air, with stable vital signs. pt was given dc and prescription instructions, pt was able to verbalize understanding, pt id band removed. pt is able to ambulate with steady gait. pt took all belongings.
== END 2018-09-25 05:01 | disposition home or self-care (01) ==
LOC: EMR 04:55
DX: Z76.0 Encounter for issue of repeat prescription (principal); I11.0 Hypertensive heart disease with heart failure; I50.9 Heart failure, unspecified; I48.91 Unspecified atrial fibrillation
CPT/HCPCS: 99282

== ENCOUNTER 2018-10-02 11:39 | Emergency (ER) | payer MEDICARE, MEDICAID ==
[~2018-10-02] VITALS: Ht 177.8 cm; Wt 99.8 kg
[~2018-10-02 11:39] MED LIST changes: +CLONIDINE HCL0.2 MG PO
[2018-10-02 12:05] VITALS: BP 106/51
--- NOTE | 2018-10-02 12:06 | NUR ---
ED Nurse Note:pt. came with bilateral foot edema, hx of gout
--- NOTE | 2018-10-02 12:36 | Emergency Room Report ---
History of Present Illness General Chief Complaint: Edema Source: Patient Present Illness HPI 68-year-old male presents to the emergency department requesting medication refill for diuretic that he takes regularly for chronic lower extremity edema. Patient with history of congestive heart failure frequent visits to the ER for medication management. Reports 5/10 in severity pain secondary to swelling. denies SOB, Coughing, Dyspnea, CP, Dizziness or BRYANT. Pt. also has hx of A-fib. reports had renal function tested during recent hospitalization and was normal. Reports previously taking potassium supplementation, but now eating 14 bananas per week. Reports his PCP is Dr. Mendez and that he sees and speaks to him regularly. Denies unilateral swelling or recent travel. Allergies: Coded Allergies: No Known Allergies (Unverified , 08/08/18) Patient History Past Medical History: see triage record Past Surgical History: none Pertinent Family History: none Reviewed Nursing Documentation: PMH: Agreed; PSxH: Agreed Nursing Documentation-PMH Past Medical History: No History, Except For Hx Cardiac Problems: Yes - afib, chf Hx Hypertension: Yes Hx Pacemaker: No - RETINAL DETACHMENT,RIGHT EYE Hx Asthma: No Hx COPD: No Hx Diabetes: No Hx Cancer: No Hx Gastrointestinal Problems: No Hx Dialysis: No - CRF Hx Neurological Problems: No - GOUT Hx Cerebrovascular Accident: No Hx Seizures: No Review of Systems All Other Systems: negative except mentioned in HPI Physical Exam Vital Signs Date Time Temp Pulse Resp B/P (MAP) Pulse Ox O2 Delivery O2 Flow Rate FiO2 10/02/18 11:57 98.1 75 20 106/51 98 Room Air Sp02 EP Interpretation: reviewed, normal General Appearance: no apparent distress, alert, GCS 15, non-toxic Head: normocephalic, atraumatic Eyes: bilateral eye normal inspection, bilateral eye PERRL ENT: hearing grossly normal, normal voice Neck: full range of motion Respiratory: lungs clear, normal breath sounds, no respiratory distress, no accessory muscle use, no wheezing, speaking full sentences Cardiovascular #1: regular rate, rhythm, edema - Bilateral 1+ Pitting Cardiovascular #2: 1+ dorsalis pedis (R), 1+ dorsalis pedis (L) Genitourinary: normal inspection Musculoskeletal: gait/station normal, normal range of motion Neurologic: alert, oriented x3, responsive, motor strength/tone normal, sensory intact, normal gait, speech normal, grossly normal Psychiatric: judgement/insight normal Skin: normal color, no rash, warm/dry, well hydrated Medical Decision Making PA Attestation Dr. Celeste is my supervising Physician whom patient management has been discussed with. Diagnostic Impression: Primary Impression: Encounter for medication refill Additional Impression: Peripheral edema ER Course 68-year-old male presents to the emergency department requesting medication refill for diuretic that he takes regularly for chronic lower extremity edema. Patient with history of congestive heart failure frequent visits to the ER for medication management. Reports 5/10 in severity pain secondary to swelling. denies SOB, Coughing, Dyspnea, CP, Dizziness or BRYANT. Pt. also has hx of A-fib. reports had renal function tested during recent hospitalization and was normal. Reports previously taking potassium supplementation, but now eating 14 bananas per week. Reports his PCP is Dr. Mendez and that he sees and speaks to him regularly. Denies unilateral swelling or recent travel. Ddx considered but are not limited to: Non-Compliance with Follow-up instructions, CHF, DVT, Cellulitis, drug seeking, urgent need for medication refill request, non -urgent medication refill request just to name a few. Vital signs: are WNL, pt. is afebrile H&PE are most consistent with non- urgent need for medication refill. Pt. does not have evidence to suggest an acute pathology, and has frequent visits to the ED for refill of medications that should be managed by his PCP. Pt. is Alert, Oriented, and able to make decisions. ORDERS: none required at this time, the diagnosis is clinical ED INTERVENTIONS: Tramadol PO DISCHARGE: At this time pt. is stable for d/c to home. Will provide printed patient care instructions, and any necessary prescriptions. Care plan and follow up instructions have been discussed with the patient prior to discharge. Last Vital Signs Date Time Temp Pulse Resp B/P (MAP) Pulse Ox O2 Delivery O2 Flow Rate FiO2 10/02/18 12:05 75 20 Room Air 10/02/18 12:05 98.1 106/51 98 Disposition: HOME, SELF-CARE Condition: Stable Scripts Tramadol Hcl* (ULTRAM*) 50 Mg Tablet 50 MG ORAL Q8HR PRN for For Pain, #6 TAB 0 Refills Prov: Amy Salmon 10/02/18 Furosemide* (LASIX*) 40 Mg Tablet 40 MG ORAL TWICE A DAY for 7 Days, #14 TAB 0 Refills Prov: Amy Salmon 10/02/18 Patient Instructions: Peripheral Edema Additional Instructions: Take your Temporary ED Medication Refill medications as directed. Follow up with a Primary Care Provider in 3-5 days, even if your symptoms have resolved. For medication management and additional refills. --Please review list of primary care clinics, if you do not already have a primary care provider Return sooner to ED if new symptoms occur, or current symptoms become worse. - Please note that this Emergency Department Report was dictated using [employer] social media technology software, occasionally this can lead to erroneous entry secondary to interpretation by the dictation equipment. Amy Salmon Oct 02, 2018 12:36
[2018-10-02] MEDS ORDERED: TRAMADOL HCL50 MG ORAL (12:39)
[2018-10-02] MEDS ORDERED: FUROSEMIDE40 MG ORAL (12:39)
[2018-10-02] MEDS ORDERED: traMADol 50mg tab ORAL ONE (12:45)
--- NOTE | 2018-10-02 12:50 | NUR ---
ER DISCHARGE NOTE: Patient is cleared to be discharged per ERMD, pt is aox4, on room air, with stable vital signs. pt was given dc and prescription instructions, pt was able to verbalize understanding, pt id band removed. pt is able to ambulate with steady gait. pt took all belongings. pt given 2 cranberry juice per pt.'s request
== END 2018-10-02 12:50 | disposition home or self-care (01) ==
LOC: EMR 12:13
DX: Z76.0 Encounter for issue of repeat prescription (principal); I50.9 Heart failure, unspecified; I13.0 Hypertensive heart and chronic kidney disease with heart failure and stage 1 through stage 4 chronic kidney disease, or unspecified chronic kidney disease; N18.9 Chronic kidney disease, unspecified; I48.91 Unspecified atrial fibrillation; M10.9 Gout, unspecified
CPT/HCPCS: 99282

== ENCOUNTER 2018-10-15 09:38 | Emergency (ER) | payer MEDICARE, MEDICAID ==
[~2018-10-15] VITALS: Ht 177.8 cm; Wt 99.8 kg
[2018-10-15 09:42] VITALS: BP 100/69
--- NOTE | 2018-10-15 09:42 | NUR ---
ED Nurse Note: ambulated in to ER due to pain and swelling on both legs. Pt c/o SOB. Able to finish sentences with out any distress and no labor breathing noted. VSS. Per pt, he was seen by MD at [facility] for the same symptoms and was not able to find the reason of the pt's pain. Seen by LINDA.
[2018-10-15 09:58] VITALS: BP 100/69
--- NOTE | 2018-10-15 10:01 | Emergency Room Report ---
History of Present Illness General Chief Complaint: Pain Source: Patient, Medical Record Present Illness HPI Patient presents to the emergency room with complaints of swelling and pain to his joints Patient reports that he was recently at [facility] for 4 days and followed at [facility] for the next 4 days He is not sure why he is having swelling to the lower extremities Denies any chest pain he complained of some Shortness of breath with exertion denies any vomiting or diarrhea denies any fevers or chills Allergies: Coded Allergies: No Known Allergies (Unverified , 08/08/18) Patient History Past Medical History: see triage record Pertinent Family History: none Reviewed Nursing Documentation: PMH: Agreed; PSxH: Agreed Nursing Documentation-PMH Past Medical History: No History, Except For Hx Cardiac Problems: Yes - afib, chf Hx Hypertension: Yes Hx Pacemaker: No - RETINAL DETACHMENT,RIGHT EYE Hx Asthma: No Hx COPD: No Hx Diabetes: No Hx Cancer: No Hx Gastrointestinal Problems: No Hx Dialysis: No - CRF Hx Neurological Problems: No - GOUT Hx Cerebrovascular Accident: No Hx Seizures: No Review of Systems All Other Systems: negative except mentioned in HPI Physical Exam Vital Signs Date Time Temp Pulse Resp B/P (MAP) Pulse Ox O2 Delivery O2 Flow Rate FiO2 10/15/18 09:42 98.1 60 18 100/69 100 Room Air Sp02 EP Interpretation: reviewed, normal General Appearance: well appearing, no apparent distress Head: normocephalic, atraumatic Eyes: bilateral eye PERRL, bilateral eye EOMI ENT: hearing grossly normal, normal pharynx, TMs + canals normal, uvula midline Neck: full range of motion, supple, no meningismus, no bony tend Respiratory: lungs clear, normal breath sounds, no rhonchi, no respiratory distress, no retraction, no accessory muscle use Cardiovascular #1: normal peripheral pulses, regular rate, rhythm, no gallop, no JVD, no murmur Gastrointestinal: normal bowel sounds, non tender, soft, no mass, no organomegaly, non-distended, no guarding, no hernia, no pulsatile mass, no rebound Genitourinary: no CVA tenderness Musculoskeletal: normal inspection - Ambulating without deficit, sugar finger noted on the right ring finger Neurologic: oriented x3, responsive, weigher and charger III-XII nml as tested, motor strength/ tone normal, sensory intact Psychiatric: mood/affect normal Skin: other - Peripheral edema improved from previous Lymphatic: normal inspection, no adenopathy Medical Decision Making Diagnostic Impression: Primary Impression: Edema ER Course Patient has had a very extensive past medical history including diagnoses of congestive heart failure gout Patient has had significant admissions at [facility] along with other tertiary centers the medical evaluation today does not warrant any further emergency evaluation at this time patient saturating well has a benign clinical exam And will have close outpatient follow-up , Last Vital Signs Date Time Temp Pulse Resp B/P (MAP) Pulse Ox O2 Delivery O2 Flow Rate FiO2 10/15/18 09:42 98.1 61 18 100/69 100 Room Air Status: unchanged Disposition: HOME, SELF-CARE Condition: Stable Referrals: Vilma Mendez MD Patient Instructions: Edema, [id number] Additional Instructions: Patient is provided with the discharge instructions notified to follow up with primary doctor in the next 2-3 days otherwise return to the er with any worsening symptoms. Please note that this report is being documented using DRAGON technology. This can lead to erroneous entry secondary to incorrect interpretation by the dictating instrument. Christie Celeste DO Oct 15, 2018 10:01
--- NOTE | 2018-10-15 10:03 | NUR ---
ED Nurse Note: Pt cleared by health care Provider for discharge. DC instructions/prescription was given and explained to pt and verbalized understanding of teachings. All medical deviecs such as ID removed. Pt is AAO x4, ambulatory and left with all personal belongings.
== END 2018-10-15 10:51 | disposition home or self-care (01) ==
LOC: EMR 10:00
DX: R60.0 Localized edema (principal); R06.02 Shortness of breath; I13.0 Hypertensive heart and chronic kidney disease with heart failure and stage 1 through stage 4 chronic kidney disease, or unspecified chronic kidney disease; N18.9 Chronic kidney disease, unspecified; I50.9 Heart failure, unspecified
CPT/HCPCS: 99281

== ENCOUNTER 2018-11-01 02:22 | Emergency (ER) | payer MEDICARE, MEDICAID ==
[~2018-11-01] VITALS: Ht 177.8 cm; Wt 99.8 kg
--- NOTE | 2018-11-01 02:48 | NUR ---
ED Nurse Note: pt came in to ed from home c/o lower extremity pain. per pt his gout acts up a lot. per pt he takes lasix for swelling
[2018-11-01 02:50] VITALS: BP 160/107
[2018-11-01] MEDS ORDERED: TRAMADOL HCL50 MG ORAL (03:07)
[2018-11-01] MEDS ORDERED: Ketorolac 30mg Inj IM ONE (03:15)
[2018-11-01] MEDS ORDERED: Ketorolac 30mg Inj IV ONE (03:15)
[2018-11-01 03:17] VITALS: BP 160/107
--- NOTE | 2018-11-01 04:10 | Emergency Room Report ---
History of Present Illness General Chief Complaint: Edema Source: Patient Present Illness HPI 68-year-old male presents ED for evaluation. Complaining of pain and swelling to his legs. States he's had this for many years now. Has history of gout. History of CHF. Denies chest pain or shortness of breath. Pain is throbbing, 8 out of 10, nonradiating. States he takes Lasix. States he just finished course of prednisone for his gout. Is currently taking allopurinol. PMD is Dr. silva. States that he travels back and forth between [place] and [place] frequently. He also has a PMD at [facility]. No other aggravating relieving factors. Denies any other associated symptoms Allergies: Coded Allergies: No Known Allergies (Unverified , 08/08/18) Patient History Past Medical History: HTN, CHF, other - gout Past Surgical History: none Pertinent Family History: none Social History: Denies: smoking, alcohol use, drug use Immunizations: UTD Reviewed Nursing Documentation: PMH: Agreed; PSxH: Agreed Nursing Documentation-PMH Past Medical History: No History, Except For Hx Cardiac Problems: Yes - afib, chf Hx Hypertension: Yes Hx Pacemaker: No - RETINAL DETACHMENT,RIGHT EYE Hx Asthma: No Hx COPD: No Hx Diabetes: No Hx Cancer: No Hx Gastrointestinal Problems: No Hx Dialysis: No - CRF Hx Neurological Problems: No - GOUT Hx Cerebrovascular Accident: No Hx Seizures: No Review of Systems All Other Systems: negative except mentioned in HPI Physical Exam Vital Signs Date Time Temp Pulse Resp B/P (MAP) Pulse Ox O2 Delivery O2 Flow Rate FiO2 11/01/18 02:29 98.2 84 14 160/107 92 Room Air Sp02 EP Interpretation: reviewed, normal General Appearance: no apparent distress, alert, GCS 15, non-toxic Head: normocephalic, atraumatic Eyes: bilateral eye normal inspection, bilateral eye PERRL ENT: hearing grossly normal, normal pharynx, no angioedema, normal voice Neck: full range of motion, supple/symm/no masses Respiratory: chest non-tender, lungs clear, normal breath sounds, speaking full sentences Cardiovascular #1: regular rate, rhythm, no edema Cardiovascular #2: 2+ carotid (R), 2+ carotid (L), 2+ radial (R), 2+ radial (L) , 2+ dorsalis pedis (R), 2+ dorsalis pedis (L) Gastrointestinal: normal bowel sounds, non tender, soft, non-distended, no guarding, no rebound Rectal: deferred Genitourinary: normal inspection, no CVA tenderness Musculoskeletal: back normal, gait/station normal, normal range of motion, swelling - 1+ pitting edema in b/l LEs Neurologic: alert, oriented x3, responsive, motor strength/tone normal, sensory intact, speech normal Psychiatric: judgement/insight normal, memory normal, mood/affect normal, no suicidal/homicidal ideation Reflexes: 3+ bicep (R), 3+ bicep (L), 3+ tricep (R), 3+ tricep (L), 3+ knee (R) , 3+ knee (L) Skin: normal color, no rash, warm/dry, well hydrated Lymphatic: no adenopathy Medical Decision Making Diagnostic Impression: Primary Impression: Peripheral edema Additional Impression: Gout attack Qualified Codes: M10.9 - Gout, unspecified ER Course Hospital Course 68-year-old M presents ED complaining of b/l LE swelling Differential diagnoses include: CHF, pedal edema, cellulitis Clinical course Patient placed on stretcher. After initial history, physical exam reveals male in no acute distress. Lungs clear. There is mild pitting edema in both legs. No erythema or induration. I reviewed EMR. Patient has been here multiple times for similar presentation of gout versus peripheral edema. Patient has been seen at multiple ERs for the same presentation. I discussed findings with patient. I explained that there is no emergent indication for further workup at this time as his condition is chronic. Patient needs to continue his medications as directed and needs to follow-up with PMD and outpatient setting and not go to multiple emergency rooms Patient given Toradol shot here. Will be discharged to home. I'll provide orthopedic referral I. I feel this is a highly complex case requiring extensive working including EKG/Rhythm strip, Xray/CT/US, Blood/urine lab work, repeat exams while in ED, and administration of strong opiates/narcotics for pain control, admission to hospital or close patient follow up. Diagnosis - peripheral edema Stable and discharged to home. Instructed to followup with PMD/ortho. Return to ED if symptoms recur or worsen Last Vital Signs Date Time Temp Pulse Resp B/P (MAP) Pulse Ox O2 Delivery O2 Flow Rate FiO2 11/01/18 03:17 98.2 11/01/18 03:17 84 14 160/107 92 Room Air Status: improved Disposition: HOME, SELF-CARE Condition: Stable Scripts Tramadol Hcl* (ULTRAM*) 50 Mg Tablet 50 MG ORAL Q6H PRN for For Pain, #10 TAB 0 Refills Prov: Mateo Galeano MD 11/01/18 Referrals: Vilma Silva MD (PCP) [facility] Open 24 hour /7 days a week by Appointment Only [address] [facility] [address] Patient Instructions: Peripheral Edema Mateo Galeano MD Nov 01, 2018 04:10
== END 2018-11-01 03:18 | disposition home or self-care (01) ==
LOC: EMR 02:41
DX: R60.9 Edema, unspecified (principal); M10.9 Gout, unspecified; Z79.899 Other long term (current) drug therapy; I11.0 Hypertensive heart disease with heart failure; I50.9 Heart failure, unspecified
CPT/HCPCS: 96372; 99283; J1885

== ENCOUNTER 2018-11-14 03:16 | Emergency (ER) | payer MEDICARE, MEDICAID ==
[~2018-11-14] VITALS: Ht 177.8 cm; Wt 99.8 kg
--- NOTE | 2018-11-14 03:30 | NUR ---
ED Nurse Note: Pt states he has both legs and feet pain. Pt has Hx Gout. Pt is AO x 4times, VSS, on room air no distress. ERMD see Pt at bedside.
[2018-11-14 03:31] VITALS: BP 110/88
--- NOTE | 2018-11-14 03:51 | Emergency Room Report ---
History of Present Illness General Chief Complaint: Pain Source: Patient Present Illness HPI Patient presents with increased pain in his lower extremity with increased swelling. He has history of gout and also venous insufficiency with edema. He' s taking Lasix 40 mg twice a day occasionally. He was seen by vein specialist to said it was is veins that are the problem. He says that that did told him it wasn't because of gout or kidney trouble. The patient denies any chest pain , shortness of breath fevers chills. He wear support hose and also diabetic stockings. Currently he is wearing to diabetic stockings without the support nose. He's been evaluated for blood clots in the past and evaluations been negative. He denies calf pain at this time. Denies hemoptysis. Pain rated 10/ 10 bilateral bottom of feet, radiating to ankles. Aching. Denies medication at this time. In the past he's been requesting opiates. H/O a fib on Eliquis. 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 jobs Reviewed Nursing Documentation: PMH: Agreed; PSxH: Agreed Nursing Documentation-PMH Hx Cardiac Problems: Yes - afib, chf Hx Hypertension: Yes Hx Pacemaker: No - RETINAL DETACHMENT,RIGHT EYE Hx Asthma: No Hx COPD: No Hx Diabetes: No Hx Cancer: No Hx Gastrointestinal Problems: No Hx Dialysis: No - CRF Hx Neurological Problems: No - GOUT Hx Cerebrovascular Accident: No Hx Seizures: No Review of Systems All Other Systems: negative except mentioned in HPI Physical Exam Vital Signs Date Time Temp Pulse Resp B/P (MAP) Pulse Ox O2 Delivery O2 Flow Rate FiO2 11/14/18 03:21 97.9 52 20 98 Room Air 11/14/18 03:31 110/88 Sp02 EP Interpretation: reviewed, normal General Appearance: well appearing, no apparent distress, GCS 15 Head: normocephalic, atraumatic Eyes: bilateral eye normal inspection, bilateral eye EOMI ENT: moist mucus membranes Neck: supple Respiratory: lungs clear, normal breath sounds Cardiovascular #1: regular rate, rhythm, edema - bilaterally, somewhat brawny Cardiovascular #2: 2+ radial (R), 2+ dorsalis pedis (R), 2+ dorsalis pedis (L) Gastrointestinal: normal inspection, normal bowel sounds, non tender, no mass, non-distended Genitourinary: no CVA tenderness Musculoskeletal: back normal, gait/station normal, normal range of motion Neurologic: alert, oriented x3, grossly normal Psychiatric: mood/affect normal Skin: normal inspection, warm/dry, other - no erythema Medical Decision Making Diagnostic Impression: Primary Impression: Peripheral edema ER Course Patient presents with edema and joint pain. Differential includes renal failure , gout, cellulitis amongst others. There is no evidence of heart failure at this time based on his exam. Patient be evaluated with labs. He will be treated with colchicine and Lasix. Labs with normal WBC. CMP with renal insufficiency (baseline). Improved with treatment. Discussed need for follow up with his PMD. Patient stable for outpatient observation and treatment. Laboratory Tests Test 11/14/18 05:00 11/14/18 05:30 White Blood Count 7.7 K/UL (4.8-10.8) Red Blood Count 4.35 M/UL (4.70-6.10) L Hemoglobin 12.9 G/DL (14.2-18.0) L Hematocrit 37.9 % (42.0-52.0) L Mean Corpuscular Volume 87 FL (80-99) Mean Corpuscular Hemoglobin 29.6 PG (27.0-31.0) Mean Corpuscular Hemoglobin Concent 34.0 G/DL (32.0-36.0) Red Cell Distribution Width 13.3 % (11.6-14.8) Platelet Count 196 K/UL (150-450) Mean Platelet Volume 9.7 FL (6.5-10.1) Neutrophils (%) (Auto) 58.2 % (45.0-75.0) Lymphocytes (%) (Auto) 22.4 % (20.0-45.0) Monocytes (%) (Auto) 14.8 % (1.0-10.0) H Eosinophils (%) (Auto) 3.4 % (0.0-3.0) H Basophils (%) (Auto) 1.3 % (0.0-2.0) Sodium Level 139 MMOL/L (136-145) Potassium Level 4.4 MMOL/L (3.5-5.1) Chloride Level 108 MMOL/L (98-107) H Carbon Dioxide Level 23 MMOL/L (21-32) Anion Gap 8 mmol/L (5-15) Blood Urea Nitrogen 33 mg/dL (7-18) H Creatinine 1.7 MG/DL (0.55-1.30) H Estimate Glomerular Filtration Rate 48.8 mL/min (>60) Glucose Level 98 MG/DL (74-106) Uric Acid 7.0 MG/DL (2.6-7.2) Calcium Level 10.2 MG/DL (8.5-10.1) H Total Bilirubin 0.4 MG/DL (0.2-1.0) Aspartate Amino Transferase (AST) 33 U/L (15-37) Alanine Aminotransferase (ALT) 37 U/L (12-78) Alkaline Phosphatase 110 U/L (46-116) Total Protein 6.5 G/DL (6.4-8.2) Albumin 3.3 G/DL (3.4-5.0) L Globulin 3.2 g/dL Albumin/Globulin Ratio 1.0 (1.0-2.7) Urine Color Pale yellow Urine Appearance Clear Urine pH 5 (4.5-8.0) Urine Specific [place] 1.015 (1.005-1.035) Urine Protein Negative (NEGATIVE) Urine Glucose (UA) Negative (NEGATIVE) Urine Ketones Negative (NEGATIVE) Urine Blood 1+ (NEGATIVE) H Urine Nitrite Negative (NEGATIVE) Urine Bilirubin Negative (NEGATIVE) Urine Urobilinogen Normal MG/DL (0.0-1.0) Urine Leukocyte Esterase Negative (NEGATIVE) Urine RBC 0-2 /HPF (0 - 0) H Urine WBC 0-2 /HPF (0 - 0) Urine Squamous Epithelial Cells Occasional /LPF Urine Bacteria Few /HPF (NONE) Urine Opiates Screen Negative (NEGATIVE) Urine Barbiturates Screen Negative (NEGATIVE) Phencyclidine (PCP) Screen Negative (NEGATIVE) Urine Amphetamines Screen Negative (NEGATIVE) Urine Benzodiazepines Screen Negative (NEGATIVE) Urine Cocaine Screen Negative (NEGATIVE) Urine Marijuana (THC) Screen Negative (NEGATIVE) Last Vital Signs Date Time Temp Pulse Resp B/P (MAP) Pulse Ox O2 Delivery O2 Flow Rate FiO2 11/14/18 06:49 98.4 75 19 127/84 98 Room Air Status: improved Disposition: HOME, SELF-CARE Condition: Improved Scripts Hydrocodone Bit/Acetaminophen 5-325* (NORCO 5-325*) 1 Each Tablet 1 TAB ORAL Q6H PRN for For Pain, #6 TAB 0 Refills Prov: Tim Gil MD 11/14/18 Colchicine (Colchicine) 0.6 Mg Capsule 0.6 MG PO Q6HR, #20 CAP Prov: Tim Gil MD 11/14/18 Referrals: Vimla Mendez MD (PCP) Tim Gil MD November 14, 2018 03:51
[2018-11-14] MEDS ORDERED: Furosemide 40mg tab ORAL ONE (04:00)
[2018-11-14 05:31] LABS: BASOPHILS % (AUTO) 1.3 % (0.0-2.0); EOSINOPHILS % (AUTO) 3.4 % (0.0-3.0); HEMATOCRIT 37.9 % (42.0-52.0); HEMOGLOBIN 12.9 G/DL (14.2-18.0); LYMPHOCYTES % (AUTO) 22.4 % (20.0-45.0); MEAN CORPUSCULAR VOLUME 87 FL (80-99); MONOCYTES % (AUTO) 14.8 % (1.0-10.0); NEUTROPHILS % (AUTO) 58.2 % (45.0-75.0); PLATELET COUNT 196 K/UL (150-450); RED BLOOD COUNT 4.35 M/UL (4.70-6.10); RED CELL DISTRIBUTION WIDTH 13.3 % (11.6-14.8); WHITE BLOOD COUNT 7.7 K/UL (4.8-10.8)
--- NOTE | 2018-11-14 05:31 | NUR ---
ED Nurse Note: Urine and blood sample sent to lab.
[2018-11-14 05:33] LABS: APPEARANCE,URINE CLEAR; BILIRUBIN, URINE NEGATIVE (NEGATIVE); COLOR,URINE PALE YELLOW; GLUCOSE, URINE (UA) NEGATIVE (NEGATIVE); KETONES,URINE NEGATIVE (NEGATIVE); LEUKOCYTE ESTERASE ,URINE NEGATIVE (NEGATIVE); NITRITE,URINE NEGATIVE (NEGATIVE); PH,URINE 5 (4.5-8.0); PROTEIN,URINE NEGATIVE (NEGATIVE); UROBILINOGEN,URINE NORMAL MG/DL (0.0-1.0)
[2018-11-14 05:42] LABS: ANION GAP 8 mmol/L (5-15); BLOOD UREA NITROGEN 33 mg/dL (7-18); CALCIUM 10.2 MG/DL (8.5-10.1); CARBON DIOXIDE 23 MMOL/L (21-32); CHLORIDE 108 MMOL/L (98-107); CREATININE 1.7 MG/DL (0.55-1.30); POTASSIUM 4.4 MMOL/L (3.5-5.1); SODIUM 139 MMOL/L (136-145)
[2018-11-14 05:46] LABS: ALANINE AMINOTRANSFERASE 37 U/L (12-78); ALBUMIN 3.3 G/DL (3.4-5.0); ALKALINE PHOSPHATASE 110 U/L (46-116); ASPARTATE AMINO TRANSFERASE 33 U/L (15-37); BILIRUBIN,TOTAL 0.4 MG/DL (0.2-1.0)
[2018-11-14] MEDS ORDERED: COLCHICINE0.6 M1 PO (06:18)
[2018-11-14] MEDS ORDERED: NORCO 5-325 TA1 EACH ORAL (06:18)
--- NOTE | 2018-11-14 06:47 | NUR ---
ER DISCHARGE NOTE: Patient is cleared to be discharged per ERMD, pt is aox4, on room air, with stable vital signs. pt was given dc and prescription instructions, pt was able to verbalize understanding, pt id band removed without complications. pt is able to ambulate with steady gait. pt took all belongings.
[2018-11-14 06:48] VITALS: BP 127/84
[2018-11-14 06:49] VITALS: BP 127/84
== END 2018-11-14 06:50 | disposition home or self-care (01) ==
LOC: EMR 03:36
DX: R60.0 Localized edema (principal); I10 Essential (primary) hypertension; I11.0 Hypertensive heart disease with heart failure; I50.9 Heart failure, unspecified; Z79.01 Long term (current) use of anticoagulants; N28.9 Disorder of kidney and ureter, unspecified
CPT/HCPCS: 36415; 80053; 80307; 81003; 84550; 85025; 99283

== ENCOUNTER 2018-12-09 01:31 | Inpatient (IN) | payer MEDICARE, MEDICAID ==
[~2018-12-09] VITALS: Ht 177.8 cm; Wt 99.8 kg
[2018-12-09] VITALS (7 sets, daily range): BP systolic 100–142; BP diastolic 77–94
--- NOTE | 2018-12-09 02:09 | NUR ---
ED Nurse Note: LE swelling for one week; out of Lasix for a "couple of days". Pt is AO x 4times, VSS, on room air no distress. ERMD seen Pt at bedside.
--- NOTE | 2018-12-09 02:45 | NUR ---
ED Nurse Note: iv access established. blood collected; sent down to lab.
[2018-12-09] MEDS: Metoprolol 5mg/5ml Inj IVP SCH ×2 (03:01→03:43)
[2018-12-09 03:05] LABS: BASOPHILS % (AUTO) 1.1 % (0.0-2.0); EOSINOPHILS % (AUTO) 4.3 % (0.0-3.0); HEMATOCRIT 43.2 % (42.0-52.0); HEMOGLOBIN 13.8 G/DL (14.2-18.0); LYMPHOCYTES % (AUTO) 24.2 % (20.0-45.0); MEAN CORPUSCULAR VOLUME 90 FL (80-99); MONOCYTES % (AUTO) 17.5 % (1.0-10.0); NEUTROPHILS % (AUTO) 52.9 % (45.0-75.0); PLATELET COUNT 165 K/UL (150-450); RED BLOOD COUNT 4.78 M/UL (4.70-6.10); RED CELL DISTRIBUTION WIDTH 13.5 % (11.6-14.8); WHITE BLOOD COUNT 7.4 K/UL (4.8-10.8)
[2018-12-09 03:16] LABS: ANION GAP 3 mmol/L (5-15); BLOOD UREA NITROGEN 27 mg/dL (7-18); CALCIUM 10.3 MG/DL (8.5-10.1); CARBON DIOXIDE 29 MMOL/L (21-32); CHLORIDE 108 MMOL/L (98-107); CREATININE 2.1 MG/DL (0.55-1.30); POTASSIUM 4.1 MMOL/L (3.5-5.1); SODIUM 140 MMOL/L (136-145)
[2018-12-09 03:29] LABS: ALANINE AMINOTRANSFERASE 22 U/L (12-78); ALBUMIN 3.4 G/DL (3.4-5.0); ALBUMIN/GLOBULIN RATIO 0.9 (1.0-2.7); ALKALINE PHOSPHATASE 108 U/L (46-116); ASPARTATE AMINO TRANSFERASE 19 U/L (15-37); BILIRUBIN,TOTAL 0.3 MG/DL (0.2-1.0); CKMB 1.7 NG/ML (0.0-3.6); CREATINE KINASE 96 U/L (26-308)
[2018-12-09] MEDS ORDERED: Morphine Sulfate 4mg/ml Inj (IV USE ONLY) IVP ONE (03:45)
--- NOTE | 2018-12-09 03:54 | NUR ---
ED Nurse Note: Pt resting in bed, MS given per order, pt tolerated well. Dr Diego to see pt.
--- NOTE | 2018-12-09 04:21 | Emergency Room Report ---
History of Present Illness General Chief Complaint: General Complaint Source: Medical Record Present Illness HPI 68-year-old male presents ED for evaluation. Patient walked in stating that his legs been swollen for a week. History of CHF and A. fib. States he does not have his Lasix. States he feels short of breath. Denies chest pain. Denies fevers or chills. No other aggravating or relieving factors. Denies any other associated symptoms Allergies: Coded Allergies: No Known Allergies (Unverified , 11/25/18) Patient History Past Medical History: AFib Past Surgical History: none Pertinent Family History: none Social History: Denies: smoking, alcohol use, drug use Immunizations: UTD Reviewed Nursing Documentation: PMH: Agreed; PSxH: Agreed Nursing Documentation-PMH Hx Cardiac Problems: Yes - afib, chf Hx Hypertension: Yes Hx Pacemaker: No - RETINAL DETACHMENT,RIGHT EYE Hx Asthma: No Hx COPD: No Hx Diabetes: No Hx Cancer: No Hx Gastrointestinal Problems: No Hx Dialysis: No - CRF Hx Neurological Problems: No - GOUT Hx Cerebrovascular Accident: No Hx Seizures: No Review of Systems All Other Systems: negative except mentioned in HPI Physical Exam Vital Signs Date Time Temp Pulse Resp B/P (MAP) Pulse Ox O2 Delivery O2 Flow Rate FiO2 12/09/18 01:56 98.1 96 16 102/51 (68) 98 Room Air Sp02 EP Interpretation: reviewed, normal General Appearance: no apparent distress, alert, GCS 15, non-toxic Head: normocephalic, atraumatic Eyes: bilateral eye normal inspection, bilateral eye PERRL ENT: hearing grossly normal, normal pharynx, no angioedema, normal voice Neck: full range of motion, supple/symm/no masses Respiratory: chest non-tender, lungs clear, normal breath sounds, speaking full sentences Cardiovascular #1: regular rate, rhythm, no edema Cardiovascular #2: 2+ carotid (R), 2+ carotid (L), 2+ radial (R), 2+ radial (L) , 2+ dorsalis pedis (R), 2+ dorsalis pedis (L) Gastrointestinal: normal bowel sounds, non tender, soft, non-distended, no guarding, no rebound Rectal: deferred Genitourinary: normal inspection, no CVA tenderness Musculoskeletal: back normal, gait/station normal, normal range of motion, swelling - 2+ pitting edema b/l LEs Neurologic: alert, oriented x3, responsive, motor strength/tone normal, sensory intact, speech normal Psychiatric: judgement/insight normal, memory normal, mood/affect normal, no suicidal/homicidal ideation Reflexes: 3+ bicep (R), 3+ bicep (L), 3+ tricep (R), 3+ tricep (L), 3+ knee (R) , 3+ knee (L) Skin: normal color, no rash, warm/dry, well hydrated Lymphatic: no adenopathy Medical Decision Making Diagnostic Impression: Primary Impression: CHF (congestive heart failure) Qualified Codes: I50.9 - Heart failure, unspecified Additional Impressions: Atrial fibrillation with RVR Renal insufficiency ER Course Hospital Course 68-year-old male presents ED complaining of shortness of breath, leg swelling Differential diagnoses include: LA/unstable angina, contusion, muscle strain, PTX, rib fracture Clinical course Patient placed on stretcher. on monitoring engineer. After initial history and physical I ordered labs, EKG, chest x-ray labs reviewed- no leukocytosis, hemoglobin/hematocrit stable, creatinine elevated, troponins negative, BNP elevated doppler US - negative for DVT EKG - afib with RVR, no acute ischemic changes interpreted by me Chest x-ray- cardiomegaly.CHF converted with lorpressor. Lasix given. Case discussed with Dr. pinzon and he agreed to accept the patient to his service for further care and support I. I feel this is a highly complex case requiring extensive working including EKG/Rhythm strip, Xray/CT/US, Blood/urine lab work, repeat exams while in ED, and administration of strong opiates/narcotics for pain control, admission to hospital or close patient follow up. Diagnosis - CHF exacerbation, renal failuere, afib with RVR admitted to telemetry in serious condition Labs Test 12/09/18 02:50 White Blood Count 7.4 K/UL (4.8-10.8) Red Blood Count 4.78 M/UL (4.70-6.10) Hemoglobin 13.8 G/DL (14.2-18.0) Hematocrit 43.2 % (42.0-52.0) Mean Corpuscular Volume 90 FL (80-99) Mean Corpuscular Hemoglobin 29.0 PG (27.0-31.0) Mean Corpuscular Hemoglobin Concent 32.0 G/DL (32.0-36.0) Red Cell Distribution Width 13.5 % (11.6-14.8) Platelet Count 165 K/UL (150-450) Mean Platelet Volume 11.3 FL (6.5-10.1) Neutrophils (%) (Auto) 52.9 % (45.0-75.0) Lymphocytes (%) (Auto) 24.2 % (20.0-45.0) Monocytes (%) (Auto) 17.5 % (1.0-10.0) Eosinophils (%) (Auto) 4.3 % (0.0-3.0) Basophils (%) (Auto) 1.1 % (0.0-2.0) Sodium Level 140 MMOL/L (136-145) Potassium Level 4.1 MMOL/L (3.5-5.1) Chloride Level 108 MMOL/L (98-107) Carbon Dioxide Level 29 MMOL/L (21-32) Anion Gap 3 mmol/L (5-15) Blood Urea Nitrogen 27 mg/dL (7-18) Creatinine 2.1 MG/DL (0.55-1.30) Estimat Glomerular Filtration Rate 38.3 mL/min (>60) Glucose Level 91 MG/DL (74-106) Calcium Level 10.3 MG/DL (8.5-10.1) Total Bilirubin 0.3 MG/DL (0.2-1.0) Aspartate Amino Transf (AST/SGOT) 19 U/L (15-37) Alanine Aminotransferase (ALT/SGPT) 22 U/L (12-78) Alkaline Phosphatase 108 U/L (46-116) Total Creatine Kinase 96 U/L (26-308) Creatine Kinase MB 1.7 NG/ML (0.0-3.6) Creatine Kinase MB Relative Index 1.7 Troponin I 0.028 ng/mL (0.000-0.056) Pro-B-Type Natriuretic Peptide 1265 pg/mL (0-125) Total Protein 7.0 G/DL (6.4-8.2) Albumin 3.4 G/DL (3.4-5.0) Globulin 3.6 g/dL Albumin/Globulin Ratio 0.9 (1.0-2.7) EKG Diagnostic Results Rate: tachycardiac Rhythm: other - afib with RVR ST Segments: no acute changes ASA given to the pt in ED: No Rhythm Strip Diag. Results EP Interpretation: yes Rhythm: no PVC's, no ectopy Chest X-Ray Diagnostic Results Chest X-Ray Diagnostic Results : Chest X-Ray Ordered: Yes # of Views/Limited/Complete: 1 View Indication: Shortness of Breath EP Interpretation: Yes Interpretation: no consolidation, no effusion, no pneumothorax, other - cardiomegaly/chf Impression: Other - chf Electronically Signed by: Electronically signed by Mateo Galeano MD Last Vital Signs Date Time Temp Pulse Resp B/P (MAP) Pulse Ox O2 Delivery O2 Flow Rate FiO2 12/09/18 03:54 98.1 108 16 124/94 98 Room Air Status: improved Disposition: ADMITTED INPATIENT Condition: Serious Referrals: Mariano Alaniz MD (PCP) Mateo Galeano MD Dec 09, 2018 04:21
--- NOTE | 2018-12-09 04:30 | NUR ---
TRANSFER TO FLOOR: Patient transferred to as ordered, per Dr Alaniz. Report given to EULALIO Reyes. Belongings and medications given to pt . Family and or S/O informed of transfer.
--- NOTE | 2018-12-09 05:00 | NUR ---
NURSE NOTES: Report received from EULALIO Molina. Pt in stable condition. Pt belongings verified and monitor car operator applied. Bed in the lowest position, bed brakes engaged, side rails up x3 and call light within reach. Will continue to monitor.
--- NOTE | 2018-12-09 07:22 | NUR ---
HAND-OFF: Report given to EULALIO Cade.
--- NOTE | 2018-12-09 07:23 | NUR ---
NURSE NOTES: Report received from EULALIO Jon. Pt is sitting in bed, eating his breakfast . Pt is AOx4, with some confusion. Breathing is even and unlabored in room air. No acute distress noted at this time. Bed in lowest position with brake engaged and side rails up x2. Call light and side table placed within reach. Will continue to monitor.
[2018-12-09] MEDS ORDERED: Metoprolol Tartrate 50mg tab ORAL SCH (09:00)
[2018-12-09] MEDS ORDERED: Furosemide 40mg tab ORAL SCH (09:00)
[2018-12-09] MEDS ORDERED: Dextrose 50% 25ml Syringe IV PRN (09:15)
[2018-12-09] MEDS ORDERED: Albuterol/Ipratropium 3ml neb HHN PRN (09:15)
[2018-12-09] MEDS ORDERED: Miralax 17gm pkt ORAL PRN (09:15)
--- NOTE | 2018-12-09 13:39 | Consultation ---
History of Present Illness General Date patient seen: Dec 09, 2018 Chief Complaint: General Complaint Present Illness HPI 68 year old male with hx of Gout, afib, DM, presented to Er with CC of with bilateral ankle pain and edema. He ran out of his Lasix for a few days and started to swell up. The patient has a history of right heart failure. He has been seen here for edema in the past. Pt is admitted for decompensation of right heart failure. Allergies: Coded Allergies: No Known Allergies (Unverified , 11/25/18) Medication History Scheduled Clonidine Hcl (Clonidine Hcl), 0.2 MG PO TID Furosemide* (Lasix*), 40 MG ORAL TWICE A DAY Potassium Chloride (Potassium Chloride), 20 MEQ ORAL DAILY, (Reported) Patient History Healthcare decision maker Resuscitation status Full Code Advanced Directive on File No Past Medical/Surgical History Past Medical/Surgical History: (1) Atrial fibrillation (2) Right-sided heart failure (3) Chronic gout (4) Renal insufficiency Review of Systems All Other Systems: negative except mentioned in HPI Physical Exam General Appearance: WD/WN, no apparent distress Lines, tubes and drains: peripheral HEENT: normocephalic, atraumatic Neck: non-tender, normal alignment Breasts: no masses Cardiovascular/Chest: normal rate Abdomen: normal bowel sounds Genitourinary/Rectal: normal genital exam Extremities: normal range of motion, moderate edema Last 24 Hour Vital Signs Date Time Temp Pulse Resp B/P (MAP) Pulse Ox O2 Delivery O2 Flow Rate FiO2 12/09/18 12:00 97.4 78 20 140/90 (107) 99 12/09/18 09:30 77 128/77 12/09/18 09:00 Room Air 12/09/18 08:00 97.6 77 18 128/77 (94) 98 12/09/18 05:30 Room Air 12/09/18 04:57 102 12/09/18 04:30 98.6 102 18 134/89 95 Room Air 12/09/18 04:30 97.0 84 18 142/84 (103) 98 12/09/18 03:54 98.1 108 16 124/94 98 Room Air 12/09/18 03:43 96 124/94 12/09/18 03:01 96 139/117 12/09/18 02:00 96 16 Room Air 12/09/18 02:00 98.1 108 16 122/94 98 Room Air 12/09/18 01:56 98.1 96 16 102/51 (68) 98 Room Air Intake and Output 12/08/18 12/09/18 19:00 07:00 # Voids 1 Laboratory Tests Test 12/09/18 02:50 12/09/18 09:44 White Blood Count 7.4 K/UL (4.8-10.8) Red Blood Count 4.78 M/UL (4.70-6.10) Hemoglobin 13.8 G/DL (14.2-18.0) L Hematocrit 43.2 % (42.0-52.0) Mean Corpuscular Volume 90 FL (80-99) Mean Corpuscular Hemoglobin 29.0 PG (27.0-31.0) Mean Corpuscular Hemoglobin Concent 32.0 G/DL (32.0-36.0) Red Cell Distribution Width 13.5 % (11.6-14.8) Platelet Count 165 K/UL (150-450) Mean Platelet Volume 11.3 FL (6.5-10.1) H Neutrophils (%) (Auto) 52.9 % (45.0-75.0) Lymphocytes (%) (Auto) 24.2 % (20.0-45.0) Monocytes (%) (Auto) 17.5 % (1.0-10.0) H Eosinophils (%) (Auto) 4.3 % (0.0-3.0) H Basophils (%) (Auto) 1.1 % (0.0-2.0) Sodium Level 140 MMOL/L (136-145) Potassium Level 4.1 MMOL/L (3.5-5.1) Chloride Level 108 MMOL/L (98-107) H Carbon Dioxide Level 29 MMOL/L (21-32) Anion Gap 3 mmol/L (5-15) L Blood Urea Nitrogen 27 mg/dL (7-18) H Creatinine 2.1 MG/DL (0.55-1.30) H Estimat Glomerular Filtration Rate 38.3 mL/min (>60) Glucose Level 91 MG/DL (74-106) Calcium Level 10.3 MG/DL (8.5-10.1) H Total Bilirubin 0.3 MG/DL (0.2-1.0) Aspartate Amino Transf (AST/SGOT) 19 U/L (15-37) Alanine Aminotransferase (ALT/SGPT) 22 U/L (12-78) Alkaline Phosphatase 108 U/L (46-116) Total Creatine Kinase 96 U/L (26-308) Creatine Kinase MB 1.7 NG/ML (0.0-3.6) Creatine Kinase MB Relative Index 1.7 Troponin I 0.028 ng/mL (0.000-0.056) 0.020 ng/mL (0.000-0.056) Pro-B-Type Natriuretic Peptide 1265 pg/mL (0-125) H Total Protein 7.0 G/DL (6.4-8.2) Albumin 3.4 G/DL (3.4-5.0) Globulin 3.6 g/dL Albumin/Globulin Ratio 0.9 (1.0-2.7) L Height (Feet): 5 Height (Inches): 10.00 Weight (Pounds): 220 Medications Current Medications Medications (Trade) Dose Ordered Sig/Artie Route PRN Reason Start Time Stop Time Status Last Admin Dose Admin Acetaminophen (Tylenol) 650 mg Q4H PRN ORAL Fever 12/09/18 09:15 01/08/19 09:14 12/09/18 09:33 Albuterol/ Ipratropium (Albuterol/ Ipratropium) 3 ml Q4H PRN HHN Shortness of Breath 12/09/18 09:15 12/14/18 09:14 Dextrose (Dextrose 50%) 25 ml Q30M PRN IV Hypoglycemia 12/09/18 09:15 01/08/19 09:14 Dextrose (Dextrose 50%) 50 ml Q30M PRN IV hypoglycemia 12/09/18 09:15 01/08/19 09:14 Furosemide (Lasix) 40 mg EVERY 8 HOURS IV 12/09/18 14:00 01/08/19 13:59 Heparin Sodium (Porcine) (Heparin 5000 units/ml) 5,000 units EVERY 8 HOURS SUBQ 12/09/18 14:00 01/08/19 13:59 Metoprolol Tartrate (Lopressor) 50 mg Q12HR ORAL 12/09/18 09:00 01/08/19 08:59 12/09/18 09:30 Ondansetron HCl (Zofran) 4 mg Q6H PRN IVP Nausea & Vomiting 12/09/18 09:15 01/08/19 09:14 Polyethylene Glycol (Miralax) 17 gm DAILYPRN PRN ORAL Constipation 12/09/18 09:15 01/08/19 09:14 Temazepam (Restoril) 15 mg HSPRN PRN ORAL Insomnia 12/09/18 09:15 12/16/18 09:14 Assessment/Plan Problem List: (1) Atrial fibrillation ICD Codes: I48.91 - Unspecified atrial fibrillation SNOMED: 05574983 (2) Atrial fibrillation with RVR ICD Codes: I48.91 - Unspecified atrial fibrillation SNOMED: 015891148849308 (3) Right-sided heart failure ICD Codes: I50.9 - Heart failure, unspecified SNOMED: 698674523 (4) Chronic gout ICD Codes: M1A.9XX0 - Chronic gout, unspecified, without tophus (tophi) SNOMED: 73539235, 45621214 (5) Peripheral edema ICD Codes: R60.9 - Edema, unspecified SNOMED: 236244929 (6) Renal insufficiency ICD Codes: N28.9 - Disorder of kidney and ureter, unspecified SNOMED: 770756112, 802676174 Assessment/Plan: lasix IV intake and output cardiology evaluation monitor heart rate symptomatic treatment dvt prophylaxis. Abbey Espionza MD Dec 09, 2018 13:39
[2018-12-09] MEDS: Heparin 5000 units/ml inj SUBQ SCH ×2 (14:45→21:29)
--- NOTE | 2018-12-09 14:51 | History & Physical ---
History and Physical History & Physicial Mariano Alaniz MD Dec 09, 2018 14:51
--- NOTE | 2018-12-09 16:09 | Consultation ---
Consult Note Consult Note asked to eval at the request of Dr Alaniz for renal failure 68-year-old male presents ED for evaluation. Patient walked in stating that his legs been swollen for a week. History of CHF and A. fib. States he does not have his Lasix. States he feels short of breath. Denies chest pain. Denies fevers or chills. No other aggravating or relieving factors. Denies any other associated symptoms No Known Allergies (Unverified , 11/25/18) Past Medical History: AFib Hx Cardiac Problems: Yes - afib, chf Hx Hypertension: Yes - RETINAL DETACHMENT,RIGHT EYE - CRF - GOUT interviewed examined data reviewed admits to having history of renal failure Assessment/Plan Renal failure HTN, Likely Hypertensive kidney Ds CHF decompensated At fib 2D echo [facility] urine studies keep BP , BS , HR in check monitor renal parameters Stanislav Crouch MD Dec 09, 2018 16:09
--- NOTE | 2018-12-09 16:12 | NUR ---
CASE MANAGEMENT:REVIEW 68 YR OLD MALE FROM HOME TO ER CC: BLE SWELLING SI: AFIB. CHF 98.0 96 16 102/51 98% ON RA BUN+27 CR+2.1 IS: IV METOPROLOL Q5MIN X3 IV MORPHINE X1 IV LASIX X1 CHEST XRAY : TO TELEMETRY UNIT
--- NOTE | 2018-12-09 17:18 | Cardiology Progress Note ---
Assessment/Plan Assessment/Plan [id number] Objective Last 24 Hour Vital Signs Date Time Temp Pulse Resp B/P (MAP) Pulse Ox O2 Delivery O2 Flow Rate FiO2 12/09/18 16:01 68 12/09/18 16:00 97.4 55 18 100/86 (91) 98 12/09/18 12:00 97.4 78 20 140/90 (107) 99 12/09/18 12:00 74 12/09/18 09:30 77 128/77 12/09/18 09:00 Room Air 12/09/18 08:00 97.6 77 18 128/77 (94) 98 12/09/18 05:30 Room Air 12/09/18 04:57 102 12/09/18 04:30 98.6 102 18 134/89 95 Room Air 12/09/18 04:30 97.0 84 18 142/84 (103) 98 12/09/18 03:54 98.1 108 16 124/94 98 Room Air 12/09/18 03:43 96 124/94 12/09/18 03:01 96 139/117 12/09/18 02:00 96 16 Room Air 12/09/18 02:00 98.1 108 16 122/94 98 Room Air 12/09/18 01:56 98.1 96 16 102/51 (68) 98 Room Air Intake and Output 12/08/18 12/09/18 19:00 07:00 # Voids 1 Laboratory Tests Test 12/09/18 02:50 12/09/18 09:44 White Blood Count 7.4 K/UL (4.8-10.8) Red Blood Count 4.78 M/UL (4.70-6.10) Hemoglobin 13.8 G/DL (14.2-18.0) L Hematocrit 43.2 % (42.0-52.0) Mean Corpuscular Volume 90 FL (80-99) Mean Corpuscular Hemoglobin 29.0 PG (27.0-31.0) Mean Corpuscular Hemoglobin Concent 32.0 G/DL (32.0-36.0) Red Cell Distribution Width 13.5 % (11.6-14.8) Platelet Count 165 K/UL (150-450) Mean Platelet Volume 11.3 FL (6.5-10.1) H Neutrophils (%) (Auto) 52.9 % (45.0-75.0) Lymphocytes (%) (Auto) 24.2 % (20.0-45.0) Monocytes (%) (Auto) 17.5 % (1.0-10.0) H Eosinophils (%) (Auto) 4.3 % (0.0-3.0) H Basophils (%) (Auto) 1.1 % (0.0-2.0) Sodium Level 140 MMOL/L (136-145) Potassium Level 4.1 MMOL/L (3.5-5.1) Chloride Level 108 MMOL/L (98-107) H Carbon Dioxide Level 29 MMOL/L (21-32) Anion Gap 3 mmol/L (5-15) L Blood Urea Nitrogen 27 mg/dL (7-18) H Creatinine 2.1 MG/DL (0.55-1.30) H Estimat Glomerular Filtration Rate 38.3 mL/min (>60) Glucose Level 91 MG/DL (74-106) Calcium Level 10.3 MG/DL (8.5-10.1) H Total Bilirubin 0.3 MG/DL (0.2-1.0) Aspartate Amino Transf (AST/SGOT) 19 U/L (15-37) Alanine Aminotransferase (ALT/SGPT) 22 U/L (12-78) Alkaline Phosphatase 108 U/L (46-116) Total Creatine Kinase 96 U/L (26-308) Creatine Kinase MB 1.7 NG/ML (0.0-3.6) Creatine Kinase MB Relative Index 1.7 Troponin I 0.028 ng/mL (0.000-0.056) 0.020 ng/mL (0.000-0.056) Pro-B-Type Natriuretic Peptide 1265 pg/mL (0-125) H Total Protein 7.0 G/DL (6.4-8.2) Albumin 3.4 G/DL (3.4-5.0) Globulin 3.6 g/dL Albumin/Globulin Ratio 0.9 (1.0-2.7) L Fan Clement MD Dec 09, 2018 17:18
--- NOTE | 2018-12-09 17:47 | Diagnostic Imaging Report ---
Indication: Shortness of breath Technique: One view of the chest Comparison: 08/21/2018 Findings: There is equivocal minimal interstitial congestion. No focal airspace consolidation. The pleural spaces are clear. The heart is enlarged. The aorta is tortuous and ectatic Impression: Cardiomegaly. Equivocal minimal interstitial congestion-correlate with clinical findings This agrees with the preliminary interpretation provided by the emergency room physician
--- NOTE | 2018-12-09 17:47 | Cardiology Report ---
APPROVED REPORT EXAM: Two-dimensional and M-mode echocardiogram with Doppler and color Doppler. INDICATION LV function M-Mode DIMENSIONS IVSd1.6 (0.7-1.1cm)Left Atrium (MM)4.6 (1.6-4.0cm) LVDd4.8 (3.5-5.6cm)Aortic Root3.8 (2.0-3.7cm) PWd1.3 (0.7-1.1cm)Aortic Cusp Exc.2.1 (1.5-2.0cm) LVDs3.9 (2.5-4.0cm) PWs1.4 cm Moderate left ventricular enlargement. Severe global left ventricular hypokinesis. Left ventricular ejection fraction estimated to be 20-25 %. Mild left ventricular hypertrophy. No evidence of pericardial effusion. Moderate to severe left atrial enlargement. Right atrial size at upper limits of normal. Right ventricular chamber size is within normal limits. Focal aortic valve sclerosis with adequate cusp excursion. Thickened mitral valve leaflets with normal excursion. Mitral annulus and aortic root calcification. Pulmonic valve not well visualized. Normal tricuspid valve structure. IVC at normal size with physiologic collapse. A color flow and spectral Doppler study was performed and revealed: Mild aortic regurgitation. Moderate mitral regurgitation. Can not determine left ventricular diastolic function by mitral diastolic velocities due to atrial fibrillation. Mild tricuspid regurgitation. Tricuspid systolic velocities suggests peak right ventricular systolic pressure of 28 mmHg.
[2018-12-09] MEDS: Docusate 100mg cap ORAL SCH (18:25)
--- NOTE | 2018-12-09 19:31 | NUR ---
HAND-OFF: Report given to EULALIO Jon.
--- NOTE | 2018-12-09 19:34 | NUR ---
NURSE NOTES: Report received from EULALIO Cade. Pt is lying comfortably in bed in stable condition. Bed in the lowest position, bed brakes engaged, side rails up x3 with call light within reach. Will continue to monitor.
--- NOTE | 2018-12-09 20:51 | Diagnostic Imaging Report ---
EXAM: US Retroperitoneal Limited, Renal CLINICAL HISTORY: RENAL-A TECHNIQUE: Real-time ultrasound of the retroperitoneum (limited) with image documentation. COMPARISON: No relevant prior studies available. FINDINGS: Right kidney: Right kidney measures 11.0 x 4.6 cm. No hydronephrosis. Renal cysts and hypoechoic foci. Left kidney: Left kidney measures 12.3 x 6.1 cm. No hydronephrosis. Renal cysts and hypo-echoic foci. IMPRESSION: No hydronephrosis.
[2018-12-09] MEDS ORDERED: Heparin 5000 units/ml inj SUBQ SCH (21:00)
[2018-12-09] MEDS: Tamsulosin 0.4mg cap ORAL SCH ×2 (21:00→21:28)
--- NOTE | 2018-12-09 23:30 | History and Physical Report ---
DATE OF ADMISSION: 12/09/2018 CHIEF COMPLAINT: Shortness of breath and pedal edema. HISTORY OF PRESENT ILLNESS: This is a 68-year-old gentleman with past medical history significant for atrial fibrillation, gout, right eye retinal detachment, chronic kidney disease, hypertension, congestive heart failure, left shoulder surgery due to rotator cuff tear, who has presented to the hospital complaining about shortness of breath and ankle edema. The patient said that he ran out of Lasix for few days and then subsequently, his legs became progressively worsening. Shortly after initial evaluation, the patient was admitted to the hospital with acute congestive heart failure with chronic atrial fibrillation. The patient was noted and recently admitted to [facility] from 11/09/2018 through 12/02/2018 due to the same symptoms. It was documented that the patient has been noncompliant with diet or medications. PAST MEDICAL/PAST SURGERY HISTORY: As above. History of atrial fibrillation, coronary artery disease, chronic kidney disease, congestive heart failure with systolic as well as diastolic dysfunction, retinal detachment of the right eye, left shoulder rotator cuff surgery 4 years ago, hypertension, obesity, erectile dysfunction, and gastroesophageal reflux disease. MEDICATIONS AT HOME: Please refer to medication reconciliation. ALLERGIES: The patient has allergy to Tylenol with itching and allopurinol with swallowing, and indomethacin and with diarrhea. SOCIAL HISTORY: The patient denies any substance abuse. Occasionally, drinks and quit smoking several years ago. 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 Used to be in the . A retired . FAMILY HISTORY: Noncontributory. REVIEW OF SYSTEMS: Mostly as above. Denies any dysuria, frequency, or hematuria. Denies any hemoptysis or hematochezia. Complained of shortness of breath and pedal edema. Denies any loss of consciousness. Denies any suicidal or homicidal ideation. Denies any fall or head trauma. PHYSICAL EXAMINATION: VITAL SIGNS: On admission from the ER, temperature 98.1, pulse of 96, respirations 16, and blood pressure 102/51, repeat one is 140/90. GENERAL: The patient is awake and responsive, in no acute distress. HEAD AND NECK: Pupils are reactive to light. Extraocular movements intact. Neck was supple. Positive JVD. LUNGS: Good air entry. No wheezing or rales. HEART: S1, S2. Distant heart sounds. Irregular. No murmur or gallops. ABDOMEN: Soft, nondistended, and nontender. Morbidly obese. EXTREMITIES: No cyanosis or clubbing. A +2 edema of bilateral lower extremities. NEUROLOGIC: Cranial nerves II through XII grossly intact. Motor is 5/5 in all extremities. Gait is intact. RECTAL/GENITOURINARY: Refused and deferred. PSYCHIATRIC: Mood and affect is intact. LABORATORY DATA: On admission, WBC of 7.4, hemoglobin 13, hematocrit 43, and platelets is 165,000. Sodium 140, potassium 4.1, chloride 108, bicarbonate 29, BUN 27, and creatinine 2.1. First troponin 0.028, second troponin 0.020. ProBNP of 1265. Duplex of lower extremity shows that the deep vein system bilaterally with no evidence of thrombosis. No acute DVT was identified. ASSESSMENT: 1. Chronic atrial fibrillation. 2. Acute on chronic congestive heart failure with systolic as well as diastolic dysfunction. 3. History of gout. 4. Coronary artery disease. 5. Hypertension. 6. Morbid obesity. 7. Chronic kidney disease. 8. Right eye retinal detachment. 9. GERD. PLAN: 1. Admit the patient to telemetry. 2. We will follow up with Dr. Espinoza from [facility]. 3. Lasix IV. 4. We will monitor laboratory in the morning. 5. Code status is Full Code. 6. DVT prophylaxis with heparin subcutaneous. 7. The patient discussed about the diet and the compliance with medication. He said that he has understood that, but he has not been compliant with it since before. Mariano Alaniz M.D. DR: CESILIA JOB#: [id number] CC:
[2018-12-10] VITALS (8 sets, daily range): BP systolic 116–145; BP diastolic 78–91
--- NOTE | 2018-12-10 01:00 | Consultation ---
DATE OF CONSULTATION: 12/09/2018 CARDIOLOGY CONSULTATION CONSULTING PHYSICIAN: aFn Clement M.D. REFERRING PHYSICIAN: Mariano Alaniz M.D. REASON FOR REFERRAL: Atrial fibrillation and congestive heart failure. HISTORY OF PRESENT ILLNESS: This is an elderly gentleman, who has had frequent hospitalizations for congestive heart failure. Recently, hospitalized at [facility] and is back in the hospital again here now at [facility] because of leg swelling. He was noted to be in atrial fibrillation with rapid ventricular response. He is admitted to the hospital for further treatment. Heart rate at times is dropping down. He really does not have any chest pain. There is no palpitation. There is no dyspnea on exertion. There is no PND or orthopnea. He is quite active. He tells me that he is walking frequently. He does not have to stop his walking because of chest pain, shortness of breath, or palpitations. He has leg swelling. He uses 2 to 3 pillows because that is the way his bed has already been set up. He does not have any heart pounding or palpitations. PAST MEDICAL HISTORY: Positive for history of congestive heart failure systolic, atrial fibrillation, rapid ventricular response with spontaneous conversion to sinus rhythm, systemic hypertension, coronary artery disease, obesity, chronic kidney disease, gastroesophageal reflux disease, detached retina, erectile dysfunction, gastroesophageal reflux disease, gout, history of atrial fibrillation, chronic obstructive pulmonary disease, and rotator cuff injury. PRIOR SURGERIES: Rotator cuff surgery. SOCIAL HISTORY: He does not smoke at this time. He does not drink alcoholic beverages. No drug use. He is . He does a lot of walking. REVIEW OF SYSTEMS: GASTROINTESTINAL: He denies. GENITOURINARY: He denies. PULMONARY: He denies. CONSTITUTIONAL: He denies. NEUROLOGIC: He denies. PHYSICAL EXAMINATION: GENERAL: Shows to be obese elderly gentleman, in no respiratory distress. NECK: Supple. LUNGS: Decreased breath sounds noted bilaterally. CARDIAC: Regular rhythm. No heaves, thrills, gallops, or rubs are noted. ABDOMEN: Soft and nontender. Positive bowel sounds. EXTREMITIES: There is 2+ edema of the lower extremity. NEUROLOGICAL: He is awake, alert, responsive, and in no apparent respiratory distress. LABORATORY VALUES: The telemetry shows atrial fibrillation with variable response. His electrocardiogram from last night shows a ventricular response is variable documented at approximately 105, nonspecific ST-T wave changes. Venous duplex reportedly is negative. White count 7.4, hemoglobin 13.9, and platelet count 165,000. Sodium is 140, potassium 4.1, chloride 108, bicarbonate 29, BUN of 27, creatinine 2.1, and glucose of 91. Calcium is 10.3 and a proBNP of 1265. Two sets of cardiac enzymes are negative. ProBNP as mentioned is 1265. Venous duplex as mentioned shown no evidence of DVT. His most recent chest x-ray has been performed at [facility] approximately one week ago. The mediastinal contours with upper limits of normal and cardiac silhouette and aortic tortuosity. His last echocardiogram at [facility] was performed in 2007 showed an ejection fraction of 32% and today, he had an echocardiogram here, preliminary report shows severe global hypokinesis and ejection fraction of 25 to 30%, moderate mitral regurgitation, and mild aortic regurgitation. ASSESSMENT: 1. Paroxysmal episodes of atrial fibrillation. 2. Congestive heart failure, acute systolic on chronic systolic. 3. Cardiomyopathy. 4. Remote history of coronary artery disease, details unknown. 5. Hypertension. 6. Medication noncompliance. PLAN: Dr. Alaniz and Dr. Espinoza, this patient was seen in cardiac consultation. [facility] data records were reviewed. The patient i reportedly noncompliant with medications. He has previously been on Coreg, losartan, and diuretics. He apparently refused anticoagulation therapy, which is certainly what he needs. He does have risk of stroke. A MTT4ND2-QENc score is 3 indicating 3.2% risk of stroke high and recommended anticoagulation for stroke prevention is present. Options of anticoagulation of course with low-dose Xarelto or Eliquis or even Coumadin. However, compliance may be certainly an issue and a concern and he needs to be compliant before this is going to be initiated. He reports having had hematuria on prior attempts on anticoagulation. For the time being, he should be continued on his blood pressure medications, which he indicates clonidine that he has been on previously, although I would recommend Cozaar for his congestive heart failure. He should be continued on Coreg. He has previously been on 12.5 mg twice a day, that should be continued as well as Lasix. He probably needs Lasix may be higher dosing and may be addition of Zaroxolyn as well. Fan Clement M.D. DR: TABATHA JOB#: [id number] CC:
[2018-12-10] MEDS: Heparin 5000 units/ml inj SUBQ SCH ×3 (06:11→22:00)
--- NOTE | 2018-12-10 06:16 | Pulmonology Progress Note ---
Assessment/Plan Problems: (1) Atrial fibrillation (2) Atrial fibrillation with RVR (3) Right-sided heart failure (4) Chronic gout (5) Peripheral edema (6) Renal insufficiency Assessment/Plan refusing telemetry continue diuretics intake and output watch electrolytes respiratory treatment symptomatic treatment Subjective ROS Limited/Unobtainable: No Constitutional: Reports: no symptoms HEENT: Repors: no symptoms Respiratory: Reports: no symptoms Allergies: Coded Allergies: No Known Allergies (Unverified , 11/25/18) Objective Last 24 Hour Vital Signs Date Time Temp Pulse Resp B/P (MAP) Pulse Ox O2 Delivery O2 Flow Rate FiO2 12/10/18 04:00 97.5 71 20 145/90 (108) 100 12/10/18 00:00 83 12/10/18 00:00 97.4 74 18 120/91 (101) 99 12/09/18 21:00 Room Air 12/09/18 20:00 78 12/09/18 20:00 98.1 71 20 129/93 (105) 98 12/09/18 16:01 68 12/09/18 16:00 97.4 55 18 100/86 (91) 98 12/09/18 12:00 97.4 78 20 140/90 (107) 99 12/09/18 12:00 74 12/09/18 09:30 77 128/77 12/09/18 09:00 Room Air 12/09/18 08:00 97.6 77 18 128/77 (94) 98 Intake and Output 12/09/18 12/10/18 19:00 07:00 Intake Total 480 ml Balance 480 ml Intake Oral 480 ml # Voids 2 2 # Bowel Movements 1 1 General Appearance: WD/WN HEENT: normocephalic, atraumatic Respiratory/Chest: chest wall non-tender, lungs clear Cardiovascular: normal peripheral pulses, regularly irregular Abdomen: normal bowel sounds, soft, non tender, no organomegaly Neurologic/Psychiatric: financial intern 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 normal Lymphatic: no neck adenopathy Laboratory Tests 12/09/18 09:44: Troponin I 0.020 12/09/18 17:45: Urine Random Sodium 97 Current Medications Medications (Trade) Dose Ordered Sig/Artie Route PRN Reason Start Time Stop Time Status Last Admin Dose Admin Acetaminophen (Tylenol) 650 mg Q4H PRN ORAL Fever 12/09/18 09:15 01/08/19 09:14 12/09/18 09:33 Albuterol/ Ipratropium (Albuterol/ Ipratropium) 3 ml Q4H PRN HHN Shortness of Breath 12/09/18 09:15 12/14/18 09:14 Carvedilol (Coreg) 12.5 mg EVERY 12 HOURS ORAL 12/10/18 09:00 01/09/19 08:59 Clonidine HCl (Catapres Tab) 0.1 mg Q6H PRN ORAL For High Blood Pressure 12/09/18 15:30 01/08/19 15:29 Dextrose (Dextrose 50%) 25 ml Q30M PRN IV Hypoglycemia 12/09/18 09:15 01/08/19 09:14 Dextrose (Dextrose 50%) 50 ml Q30M PRN IV hypoglycemia 12/09/18 09:15 01/08/19 09:14 Docusate Sodium (Colace) 100 mg TWICE A DAY ORAL 12/09/18 18:00 01/08/19 17:59 12/09/18 18:25 Furosemide (Lasix) 40 mg EVERY 8 HOURS IV 12/09/18 14:00 01/08/19 13:59 12/10/18 06:09 Heparin Sodium (Porcine) (Heparin 5000 units/ml) 5,000 units EVERY 8 HOURS SUBQ 12/09/18 14:00 01/08/19 13:59 12/10/18 06:11 Losartan Potassium (Cozaar) 50 mg DAILY ORAL 12/10/18 09:00 01/09/19 08:59 Ondansetron HCl (Zofran) 4 mg Q6H PRN IVP Nausea & Vomiting 12/09/18 09:15 01/08/19 09:14 Pantoprazole (Protonix) 40 mg BID ORAL 12/09/18 18:00 01/08/19 17:59 12/09/18 18:24 Polyethylene Glycol (Miralax) 17 gm DAILYPRN PRN ORAL Constipation 12/09/18 09:15 01/08/19 09:14 Tamsulosin HCl (Flomax) 0.4 mg BEDTIME ORAL 12/09/18 21:00 01/08/19 20:59 Temazepam (Restoril) 15 mg HSPRN PRN ORAL Insomnia 12/09/18 09:15 12/16/18 09:14 Abbey Espinoza MD Dec 10, 2018 06:16
--- NOTE | 2018-12-10 07:18 | NUR ---
HAND-OFF: Report given to Kalpesh Lemus.
--- NOTE | 2018-12-10 07:20 | NUR ---
NURSE NOTES: Received report from Danay /RN, Patient awake and alert, eating breakfast on bed, No acute distress/SOB noted at this time. IV on Right AC 20 gauge, patent, no bleeding or infiltration noted. Bed in low position and locked. Call light within reach. Will continue plan of care.
--- NOTE | 2018-12-10 07:30 | NUR ---
NURSE NOTES: Patient refused Heart Monitor.
[2018-12-10 08:08] LABS: BASOPHILS % (AUTO) 1.2 % (0.0-2.0); EOSINOPHILS % (AUTO) 4.7 % (0.0-3.0); HEMATOCRIT 42.3 % (42.0-52.0); HEMOGLOBIN 13.8 G/DL (14.2-18.0); LYMPHOCYTES % (AUTO) 31.6 % (20.0-45.0); MEAN CORPUSCULAR VOLUME 90 FL (80-99); MONOCYTES % (AUTO) 14.3 % (1.0-10.0); NEUTROPHILS % (AUTO) 48.2 % (45.0-75.0); PLATELET COUNT 192 K/UL (150-450); RED BLOOD COUNT 4.69 M/UL (4.70-6.10); RED CELL DISTRIBUTION WIDTH 13.5 % (11.6-14.8); WHITE BLOOD COUNT 6.1 K/UL (4.8-10.8)
[2018-12-10 08:44] LABS: ALANINE AMINOTRANSFERASE 30 U/L (12-78); ALBUMIN 3.1 G/DL (3.4-5.0); ALBUMIN/GLOBULIN RATIO 0.9 (1.0-2.7); ALKALINE PHOSPHATASE 101 U/L (46-116); ANION GAP 8 mmol/L (5-15); ASPARTATE AMINO TRANSFERASE 28 U/L (15-37); BILIRUBIN,TOTAL 0.5 MG/DL (0.2-1.0); BLOOD UREA NITROGEN 23 mg/dL (7-18); CALCIUM 10.3 MG/DL (8.5-10.1); CARBON DIOXIDE 25 MMOL/L (21-32); CHLORIDE 109 MMOL/L (98-107); CHOLESTEROL 168 MG/DL (< 200); CREATINE KINASE 61 U/L (26-308); CREATININE 1.8 MG/DL (0.55-1.30); FERRITIN 19 NG/ML (8-388); GAMMA GLUTAMYL TRANSPEPTIDASE 58 U/L (5-85); HDL CHOLESTEROL 41 MG/DL (40-60); PHOSPHORUS 2.6 MG/DL (2.5-4.9); POTASSIUM 3.7 MMOL/L (3.5-5.1); SODIUM 142 MMOL/L (136-145); TRIGLYCERIDES 97 MG/DL (30-150)
[2018-12-10] MEDS: Losartan 50mg tab ORAL SCH ×2 (09:00→09:38)
[2018-12-10] MEDS ORDERED: Carvedilol 12.5mg tab ORAL SCH ×2 (09:00→21:00)
--- NOTE | 2018-12-10 09:12 | Diagnostic Imaging Report ---
EXAM: XR Chest, 1 View CLINICAL HISTORY: DYSPNEA TECHNIQUE: Frontal view of the chest. COMPARISON: Chest x-ray dated 12/09/18 FINDINGS: Lungs: Unchanged pulmonary vascular congestion. No new focal consolidation. Pleural space: Unremarkable. The costophrenic angles are sharp. No visible pneumothorax. Heart: Cardiomegaly, unchanged. Mediastinum: Unremarkable. Bones/joints: Unremarkable. Vasculature: Tortuous and ectatic thoracic aorta, unchanged. IMPRESSION: No significant interval change compared to the prior exam. Persistent pulmonary vascular congestion and cardiomegaly.
[2018-12-10 09:22] LABS: % IRON SATURATION 15 % (15-50); IRON 49 ug/dL (50-175); TOTAL IRON BINDING CAPACITY 325 ug/dL (250-450)
--- NOTE | 2018-12-10 09:30 | NUR ---
NURSE NOTES: Patient refused Protonix and Cozaar.
[2018-12-10] MEDS: Docusate 100mg cap ORAL SCH (09:38)
--- NOTE | 2018-12-10 10:04 | Cardiology Progress Note ---
Subjective Cardiovascular: Denies: chest pain, lightheadedness Respiratory: Denies: shortness of breath Gastrointestinal/Abdominal: Denies: abdominal pain Genitourinary: Denies: burning Subjective upset asn the transportation security screener did nto let the silica dry press helper bring in his clothes up to him last ntie Objective Last 24 Hour Vital Signs Date Time Temp Pulse Resp B/P (MAP) Pulse Ox O2 Delivery O2 Flow Rate FiO2 12/10/18 09:37 81 125/81 12/10/18 09:00 125/81 12/10/18 04:00 97.5 71 20 145/90 (108) 100 12/10/18 00:00 83 12/10/18 00:00 97.4 74 18 120/91 (101) 99 12/09/18 21:00 Room Air 12/09/18 20:00 78 12/09/18 20:00 98.1 71 20 129/93 (105) 98 12/09/18 16:01 68 12/09/18 16:00 97.4 55 18 100/86 (91) 98 12/09/18 12:00 97.4 78 20 140/90 (107) 99 12/09/18 12:00 74 General Appearance: alert Neck: supple Cardiovascular: irregularly irregular Respiratory/Chest: lungs clear Abdomen: normal bowel sounds, non tender, soft Extremities: moderate edema Intake and Output 12/09/18 12/10/18 19:00 07:00 Intake Total 480 ml Balance 480 ml Intake Oral 480 ml # Voids 2 2 # Bowel Movements 1 1 Laboratory Tests Test 12/09/18 17:45 12/10/18 06:32 Urine Random Sodium 97 mmol/L (20-110) White Blood Count 6.1 K/UL (4.8-10.8) Red Blood Count 4.69 M/UL (4.70-6.10) L Hemoglobin 13.8 G/DL (14.2-18.0) L Hematocrit 42.3 % (42.0-52.0) Mean Corpuscular Volume 90 FL (80-99) Mean Corpuscular Hemoglobin 29.3 PG (27.0-31.0) Mean Corpuscular Hemoglobin Concent 32.5 G/DL (32.0-36.0) Red Cell Distribution Width 13.5 % (11.6-14.8) Platelet Count 192 K/UL (150-450) Mean Platelet Volume 8.7 FL (6.5-10.1) Neutrophils (%) (Auto) 48.2 % (45.0-75.0) Lymphocytes (%) (Auto) 31.6 % (20.0-45.0) Monocytes (%) (Auto) 14.3 % (1.0-10.0) H Eosinophils (%) (Auto) 4.7 % (0.0-3.0) H Basophils (%) (Auto) 1.2 % (0.0-2.0) Sodium Level 142 MMOL/L (136-145) Potassium Level 3.7 MMOL/L (3.5-5.1) Chloride Level 109 MMOL/L (98-107) H Carbon Dioxide Level 25 MMOL/L (21-32) Anion Gap 8 mmol/L (5-15) Blood Urea Nitrogen 23 mg/dL (7-18) H Creatinine 1.8 MG/DL (0.55-1.30) H Estimat Glomerular Filtration Rate 45.7 mL/min (>60) Glucose Level 84 MG/DL (74-106) Hemoglobin A1c 5.5 % (4.3-6.0) Uric Acid 8.1 MG/DL (2.6-7.2) H Calcium Level 10.3 MG/DL (8.5-10.1) H Phosphorus Level 2.6 MG/DL (2.5-4.9) Magnesium Level 2.1 MG/DL (1.8-2.4) Iron Level 49 ug/dL (50-175) L Total Iron Binding Capacity 325 ug/dL (250-450) Percent Iron Saturation 15 % (15-50) Unsaturated Iron Binding 276 ug/dL (112-346) Ferritin 19 NG/ML (8-388) Total Bilirubin 0.5 MG/DL (0.2-1.0) Gamma Glutamyl Transpeptidase 58 U/L (5-85) Aspartate Amino Transf (AST/SGOT) 28 U/L (15-37) Alanine Aminotransferase (ALT/SGPT) 30 U/L (12-78) Alkaline Phosphatase 101 U/L (46-116) Total Creatine Kinase 61 U/L (26-308) Troponin I 0.033 ng/mL (0.000-0.056) C-Reactive Protein, Quantitative < 0.4 mg/dL (0.00-0.90) Pro-B-Type Natriuretic Peptide 1769 pg/mL (0-125) H Total Protein 6.6 G/DL (6.4-8.2) Albumin 3.1 G/DL (3.4-5.0) L Globulin 3.5 g/dL Albumin/Globulin Ratio 0.9 (1.0-2.7) L Triglycerides Level 97 MG/DL (30-150) Cholesterol Level 168 MG/DL (< 200) LDL Cholesterol 107 mg/dL (<100) H HDL Cholesterol 41 MG/DL (40-60) Cholesterol/HDL Ratio 4.1 (3.3-4.4) Vitamin B12 Level 486 PG/ML (193-986) Folate 10.5 NG/ML (8.6-58.9) Thyroid Stimulating Hormone (TSH) 0.710 uiU/mL (0.358-3.740) Fan Clement MD Dec 10, 2018 10:04
--- NOTE | 2018-12-10 10:35 | NUR ---
NURSE NOTES: Patient refused heart monitor and Dr. Law aware.
--- NOTE | 2018-12-10 12:02 | Nephrology Progress Note ---
Assessment/Plan Problem List: (1) Renal insufficiency (2) Atrial fibrillation with RVR (3) CHF (congestive heart failure) (4) HTN (hypertension) (5) Hypercalcemia Assessment Renal failure HTN, Likely Hypertensive kidney Ds CHF decompensated At [facility] high Calcium Plan Optimize cardiac status check TFTs 2D echo; Severe global left ventricular hypokinesis. Left ventricular ejection fraction estimated to be 20-25 %. Kidney REMINGTON urine studies keep BP , BS , HR in check monitor renal parameters Objective Objective Last 24 Hour Vital Signs Date Time Temp Pulse Resp B/P (MAP) Pulse Ox O2 Delivery O2 Flow Rate FiO2 12/10/18 09:37 81 125/81 12/10/18 09:00 125/81 12/10/18 04:00 97.5 71 20 145/90 (108) 100 12/10/18 00:00 83 12/10/18 00:00 97.4 74 18 120/91 (101) 99 12/09/18 21:00 Room Air 12/09/18 20:00 78 12/09/18 20:00 98.1 71 20 129/93 (105) 98 12/09/18 16:01 68 12/09/18 16:00 97.4 55 18 100/86 (91) 98 Intake and Output 12/09/18 12/10/18 19:00 07:00 Intake Total 480 ml Balance 480 ml Intake Oral 480 ml # Voids 2 2 # Bowel Movements 1 1 Laboratory Tests 12/09/18 17:45: Urine Random Sodium 97 12/10/18 06:32: White Blood Count 6.1, Red Blood Count 4.69L, Hemoglobin 13.8L, Hematocrit 42.3 , Mean Corpuscular Volume 90, Mean Corpuscular Hemoglobin 29.3, Mean Corpuscular Hemoglobin Concent 32.5, Red Cell Distribution Width 13.5, Platelet Count 192, Mean Platelet Volume 8.7, Neutrophils (%) (Auto) 48.2, Lymphocytes (% ) (Auto) 31.6, Monocytes (%) (Auto) 14.3H, Eosinophils (%) (Auto) 4.7H, Basophils (%) (Auto) 1.2, Sodium Level 142, Potassium Level 3.7, Chloride Level 109H, Carbon Dioxide Level 25, Anion Gap 8, Blood Urea Nitrogen 23H, Creatinine 1.8H, Estimat Glomerular Filtration Rate 45.7, Glucose Level 84, Hemoglobin A1c 5.5, Uric Acid 8.1H, Calcium Level 10.3H, Phosphorus Level 2.6, Magnesium Level 2.1, Iron Level 49L, Total Iron Binding Capacity 325, Percent Iron Saturation 15 , Unsaturated Iron Binding 276, Ferritin 19, Total Bilirubin 0.5, Gamma Glutamyl Transpeptidase 58, Aspartate Amino Transf (AST/SGOT) 28, Alanine Aminotransferase (ALT/SGPT) 30, Alkaline Phosphatase 101, Total Creatine Kinase 61, Troponin I 0.033, C-Reactive Protein, Quantitative < 0.4, Pro-B-Type Natriuretic Peptide 1769H, Total Protein 6.6, Albumin 3.1L, Globulin 3.5, Albumin/Globulin Ratio 0.9L, Triglycerides Level 97, Cholesterol Level 168, LDL Cholesterol 107H, HDL Cholesterol 41, Cholesterol/HDL Ratio 4.1, Vitamin B12 Level 486, Folate 10.5, Thyroid Stimulating Hormone (TSH) 0.710 Height (Feet): 5 Height (Inches): 10.00 Weight (Pounds): 220 Stanislav Crouch MD Dec 10, 2018 12:02
[2018-12-10] MEDS ORDERED: Miralax 17gm pkt ORAL PRN (16:00)
--- NOTE | 2018-12-10 16:00 | NUR ---
NURSE NOTES: Report received from Mariah RN, patient transferred from 220-2 to 314-1 in stable condition. Patient alert, oriented x4, calm. Denies SOB on RA. No pain or NV. Oriented patient to room and call light. Belongings checklist reviewed with patient and transfer RN. LH heplock intact, site asymptomatic, dressing CDI. Bed in lowest position, will continue to monitor.
--- NOTE | 2018-12-10 16:10 | NUR ---
NURSE NOTES: Patient transferred to [facility], report given to Shelby/RN, Patient is in stable condition, No acute distress/SOB noted. Endorsed plan of care.
[2018-12-10] MEDS ORDERED: Albuterol/Ipratropium 3ml neb HHN PRN (17:15)
[2018-12-10] MEDS ORDERED: Losartan 50mg tab ORAL SCH ×2 (18:00)
[2018-12-10] MEDS ORDERED: Docusate 100mg cap ORAL SCH (18:00)
--- NOTE | 2018-12-10 18:42 | Internal Med Progress Note ---
Subjective Date of Service: Dec 10, 2018 Physician Name Rodney Avilez Attending Physician Mariano Alaniz MD Current Medications Medications (Trade) Dose Ordered Sig/Artie Route PRN Reason Start Time Stop Time Status Last Admin Dose Admin Acetaminophen (Tylenol) 650 mg Q4H PRN ORAL Fever 12/10/18 17:15 01/08/19 09:14 Albuterol/ Ipratropium (Albuterol/ Ipratropium) 3 ml Q4H PRN HHN Shortness of Breath 12/10/18 17:15 12/14/18 09:14 Allopurinol (Allopurinol) 300 mg DAILY ORAL 12/10/18 16:00 01/09/19 15:59 12/10/18 18:31 Carvedilol (Coreg) 12.5 mg EVERY 12 HOURS ORAL 12/10/18 21:00 01/09/19 08:59 Clonidine HCl (Catapres Tab) 0.1 mg Q6H PRN ORAL For High Blood Pressure 12/10/18 21:30 01/08/19 15:29 Dextrose (Dextrose 50%) 25 ml Q30M PRN IV Hypoglycemia 12/10/18 16:15 01/08/19 09:14 Dextrose (Dextrose 50%) 50 ml Q30M PRN IV hypoglycemia 12/10/18 16:15 01/08/19 09:14 Docusate Sodium (Colace) 100 mg TWICE A DAY ORAL 12/10/18 18:00 01/08/19 17:59 12/10/18 18:32 Furosemide (Lasix) 40 mg EVERY 12 HOURS IV 12/10/18 21:00 01/08/19 13:59 Heparin Sodium (Porcine) (Heparin 5000 units/ml) 5,000 units EVERY 8 HOURS SUBQ 12/10/18 22:00 01/08/19 13:59 Losartan Potassium (Cozaar) 50 mg BID ORAL 12/10/18 18:00 01/09/19 08:59 Ondansetron HCl (Zofran) 4 mg Q6H PRN IVP Nausea & Vomiting 12/10/18 21:15 01/08/19 09:14 Pantoprazole (Protonix) 40 mg BID ORAL 12/10/18 18:00 01/08/19 17:59 Polyethylene Glycol (Miralax) 17 gm DAILYPRN PRN ORAL Constipation 12/10/18 16:00 01/09/19 15:59 Potassium Chloride (K-Dur) 20 meq TWICE A DAY ORAL 12/10/18 18:00 12/11/18 17:59 12/10/18 18:32 Tamsulosin HCl (Flomax) 0.4 mg BEDTIME ORAL 12/10/18 21:00 01/08/19 20:59 Temazepam (Restoril) 15 mg HSPRN PRN ORAL Insomnia 12/10/18 16:00 12/17/18 15:59 Allergies: Coded Allergies: No Known Allergies (Unverified , 11/25/18) ROS Limited/Unobtainable: No Constitutional: Reports: no symptoms HEENT: Reports: no symptoms Cardiovascular: Reports: no symptoms Respiratory: Reports: shortness of breath Gastrointestinal/Abdominal: Reports: no symptoms Genitourinary: Reports: no symptoms Neurologic/Psychiatric: Reports: no symptoms Subjective 68 YO M admitted with dyspnea. Now CHF. Cover for Int Ajit-Dr Alaniz Objective Last Vital Signs Date Time Temp Pulse Resp B/P (MAP) Pulse Ox O2 Delivery O2 Flow Rate FiO2 12/10/18 18:00 142/93 12/10/18 16:00 97.2 85 20 97 12/10/18 09:00 Room Air Laboratory Tests Test 12/10/18 06:32 White Blood Count 6.1 K/UL (4.8-10.8) Red Blood Count 4.69 M/UL (4.70-6.10) L Hemoglobin 13.8 G/DL (14.2-18.0) L Hematocrit 42.3 % (42.0-52.0) Mean Corpuscular Volume 90 FL (80-99) Mean Corpuscular Hemoglobin 29.3 PG (27.0-31.0) Mean Corpuscular Hemoglobin Concent 32.5 G/DL (32.0-36.0) Red Cell Distribution Width 13.5 % (11.6-14.8) Platelet Count 192 K/UL (150-450) Mean Platelet Volume 8.7 FL (6.5-10.1) Neutrophils (%) (Auto) 48.2 % (45.0-75.0) Lymphocytes (%) (Auto) 31.6 % (20.0-45.0) Monocytes (%) (Auto) 14.3 % (1.0-10.0) H Eosinophils (%) (Auto) 4.7 % (0.0-3.0) H Basophils (%) (Auto) 1.2 % (0.0-2.0) Sodium Level 142 MMOL/L (136-145) Potassium Level 3.7 MMOL/L (3.5-5.1) Chloride Level 109 MMOL/L (98-107) H Carbon Dioxide Level 25 MMOL/L (21-32) Anion Gap 8 mmol/L (5-15) Blood Urea Nitrogen 23 mg/dL (7-18) H Creatinine 1.8 MG/DL (0.55-1.30) H Estimat Glomerular Filtration Rate 45.7 mL/min (>60) Glucose Level 84 MG/DL (74-106) Hemoglobin A1c 5.5 % (4.3-6.0) Uric Acid 8.1 MG/DL (2.6-7.2) H Calcium Level 10.3 MG/DL (8.5-10.1) H Phosphorus Level 2.6 MG/DL (2.5-4.9) Magnesium Level 2.1 MG/DL (1.8-2.4) Iron Level 49 ug/dL (50-175) L Total Iron Binding Capacity 325 ug/dL (250-450) Percent Iron Saturation 15 % (15-50) Unsaturated Iron Binding 276 ug/dL (112-346) Ferritin 19 NG/ML (8-388) Total Bilirubin 0.5 MG/DL (0.2-1.0) Gamma Glutamyl Transpeptidase 58 U/L (5-85) Aspartate Amino Transf (AST/SGOT) 28 U/L (15-37) Alanine Aminotransferase (ALT/SGPT) 30 U/L (12-78) Alkaline Phosphatase 101 U/L (46-116) Total Creatine Kinase 61 U/L (26-308) Troponin I 0.033 ng/mL (0.000-0.056) C-Reactive Protein, Quantitative < 0.4 mg/dL (0.00-0.90) Pro-B-Type Natriuretic Peptide 1769 pg/mL (0-125) H Total Protein 6.6 G/DL (6.4-8.2) Albumin 3.1 G/DL (3.4-5.0) L Globulin 3.5 g/dL Albumin/Globulin Ratio 0.9 (1.0-2.7) L Triglycerides Level 97 MG/DL (30-150) Cholesterol Level 168 MG/DL (< 200) LDL Cholesterol 107 mg/dL (<100) H HDL Cholesterol 41 MG/DL (40-60) Cholesterol/HDL Ratio 4.1 (3.3-4.4) Vitamin B12 Level 486 PG/ML (193-986) Folate 10.5 NG/ML (8.6-58.9) Thyroid Stimulating Hormone (TSH) 0.710 uiU/mL (0.358-3.740) Intake and Output 12/09/18 12/10/18 19:00 07:00 Intake Total 480 ml Balance 480 ml Intake Oral 480 ml # Voids 2 2 # Bowel Movements 1 1 Objective PHYSICAL EXAMINATION: GENERAL: The patient is awake and responsive, in no acute distress. HEAD AND NECK: Pupils are reactive to light. Extraocular movements intact. Neck was supple. Positive JVD. LUNGS: Good air entry. No wheezing or rales. HEART: S1, S2. Distant heart sounds. Irregular. No murmur or gallops. ABDOMEN: Soft, nondistended, and nontender. Morbidly obese. EXTREMITIES: No cyanosis or clubbing. A +2 edema of bilateral lower extremities. NEUROLOGIC: Cranial nerves II through XII grossly intact. Motor is 5/5 in all extremities. Gait is intact. RECTAL/GENITOURINARY: Refused and deferred. PSYCHIATRIC: Mood and affect is intact. Assessment/Plan Assessment/Plan ASSESSMENT: 1. Chronic atrial fibrillation. 2. Acute on chronic congestive heart failure with systolic as well as diastolic dysfunction. 3. History of gout. 4. Coronary artery disease. 5. Hypertension. 6. Morbid obesity. 7. Chronic kidney disease. 8. Right eye retinal detachment. 9. GERD. PLAN: 1. Admit the patient to telemetry. 2. We will follow up with Dr. Espinoza from Pulmonary Critical Care. 3. Lasix IV. 4. We will monitor laboratory in the morning. 5. Code status is Full Code. 6. DVT prophylaxis with heparin subcutaneous. 7. The patient discussed about the diet and the compliance with medication. He said that he has understood that, but he has not been compliant with it since before. Rodney Avilez MD Dec 10, 2018 18:42
--- NOTE | 2018-12-10 19:40 | NUR ---
HAND-OFF: Report given to Latrice TSAI.
--- NOTE | 2018-12-10 19:41 | NUR ---
NURSE NOTES: Received report & pt from EULALIO Ryan. Pt lying in bed, a&ox4, in room air. No s/s of acute distress & no c/o pain at this time. Skin intact. IV site intact & S/L'd. Bed in lowest position, call light within reach. Will continue to monitor.
[2018-12-10] MEDS ORDERED: ASPIRIN EC81 MG ORAL (20:07)
[2018-12-10] MEDS ORDERED: K-TAB ER20 MEQ PO (20:07)
[2018-12-10] MEDS ORDERED: DOCUSATE SODIU100 MG ORAL (20:07)
[2018-12-10] MEDS ORDERED: IBUPROFEN600 MG ORAL (20:07)
[2018-12-10] MEDS ORDERED: TRAMADOL HCL50 MG ORAL (20:07)
[2018-12-10] MEDS ORDERED: ALLOPURINOL100 M1 ORAL (20:07)
[2018-12-10] MEDS ORDERED: VITAMIN C500 M1 ORAL (20:07)
[2018-12-10] MEDS ORDERED: BETAMETHASONE D15 GM TP (20:07)
[2018-12-10] MEDS ORDERED: COLCRYS0.6 M1 PO (20:07)
--- NOTE | 2018-12-10 20:52 | NUR ---
NURSE NOTES: Pt refused scheduled meds Flomax, Heparin, & Coreg. Explained risks & benefits & pt continued to refuse.
[2018-12-10] MEDS ORDERED: Tamsulosin 0.4mg cap ORAL SCH (21:00)
[2018-12-11 04:00] VITALS: BP 135/94
[2018-12-11] MEDS: Heparin 5000 units/ml inj SUBQ SCH (05:38)
[2018-12-11 07:24] LABS: BASOPHILS % (AUTO) 0.8 % (0.0-2.0); EOSINOPHILS % (AUTO) 4.6 % (0.0-3.0); HEMATOCRIT 41.2 % (42.0-52.0); HEMOGLOBIN 13.5 G/DL (14.2-18.0); LYMPHOCYTES % (AUTO) 24.3 % (20.0-45.0); MEAN CORPUSCULAR VOLUME 90 FL (80-99); MONOCYTES % (AUTO) 13.7 % (1.0-10.0); NEUTROPHILS % (AUTO) 56.7 % (45.0-75.0); PLATELET COUNT 197 K/UL (150-450); RED CELL DISTRIBUTION WIDTH 13.2 % (11.6-14.8); WHITE BLOOD COUNT 6.1 K/UL (4.8-10.8)
--- NOTE | 2018-12-11 07:35 | NUR ---
NURSE NOTES: Pt signed AMA. Pt upset & states "I've been wanting to leave since last night. I'm done playing with your games" Dr. Alaniz & Dr. Espinoza made aware.
[2018-12-11 07:49] LABS: ALANINE AMINOTRANSFERASE 26 U/L (12-78); ALBUMIN 2.9 G/DL (3.4-5.0); ALBUMIN/GLOBULIN RATIO 0.9 (1.0-2.7); ALKALINE PHOSPHATASE 97 U/L (46-116); ANION GAP 9 mmol/L (5-15); ASPARTATE AMINO TRANSFERASE 22 U/L (15-37); BILIRUBIN,TOTAL 0.4 MG/DL (0.2-1.0); BLOOD UREA NITROGEN 23 mg/dL (7-18); CARBON DIOXIDE 25 MMOL/L (21-32); CHLORIDE 109 MMOL/L (98-107); CREATININE 1.7 MG/DL (0.55-1.30); PHOSPHORUS 2.8 MG/DL (2.5-4.9); POTASSIUM 3.4 MMOL/L (3.5-5.1); SODIUM 143 MMOL/L (136-145)
--- NOTE | 2018-12-11 07:58 | NUR ---
CHARGE NURSE NOTES: Pt left AMA.
--- NOTE | 2018-12-11 08:00 | NUR ---
CHARGE NURSE NOTES: dR Espinoza made aware of the AMA.
--- NOTE | 2018-12-12 20:32 | Discharge Summary ---
Discharge Summary Discharge Summary _ DATE OF ADMISSION: 12/09/2018 DATE OF DISCHARGE: 12/11/2017 Patient left AGAINST MEDICAL ADVICE REASON FOR ADMISSION: 68 years old male with past medical history significant for atrial fibrillation , gout, right eye retinal detachment, chronic kidney disease, hypertension, congestive heart failure, left shoulder surgery secondary to rotator cuff tear, presented to emergency room complaining of shortness of breath and ankle edema. Patient reported that he ran out of Lasix few days ago. Subsequently his leg edema became progressively worse. Troponin was negative. Chest x-ray revealed cardiomegaly. Minimal interstitial congestion. Pro-BNP 1265. Calcium 10.3. BUN 27, creatinine 2.1. EKG revealed atrial fibrillation with rapid ventricular response. IV metoprolol provided for rate control and rate improved. Shortly after initial evaluation patient was admitted to the hospital with acute congestive heart failure and atrial fibrillation with rapid ventricular response. Of note patient was recently admitted to [facility] from 11/09 through 12/02 for the same symptoms. It was documented that patient was noncompliant with diet and medication. CONSULTANTS: clinical outcomes manager Dr. Clement pulmonary Dr. Espinoza toll operator Dr. Crouch HOSPITAL COURSE: Patient admitted to telemetry floor. Patient started on diuretic with close monitoring of volumes and cardiorenal parameters. DVT prophylaxis provided. Echocardiogram revealed ejection fraction of 20 to 25% with mild left ventricular hypertrophy and severe global left ventricular hypokinesis. No evidence of pericardial effusion. Moderate mitral regurgitation. Right ventricular systolic pressure of 28. Venous duplex bilateral lower extremity revealed no evidence of acute DVT. [employer] Manager followed. Serial troponin were negative. Patient declined telemetry. Blood pressure was managed with clonidine, beta-андрей and Cozaar. Anti-failure regimen with beta-андрей, Cozaar and Lasix continued. Patient was advised on need to have anticoagulation therapy for cardioembolic stroke prevention. Option of anticoagulation, including low-dose of Xarelto, Eliquis or Coumadin were discussed with the patient. Patient reported having questionable hematuria, while using anticoagulation once. Patient declined any anticoagulation. Supplemental oxygen provided as needed to keep pulse oximetry above 92%. Drive Worker followed. Renal ultrasound demonstrated no hydronephrosis. Per nephrology, patient likely had hypertensive kidney disease. Urine studies were done. Renal parameters and electrolytes were closely monitored, electrolytes corrected as needed. Creatinine remained without change. High calcium noted. Thyroid function test revealed stable TSH, T3, and T4. PTH intact still pending at the time of this dictation. GI prophylaxis provided. Allopurinol and Flomax continued. Patient was counseled on compliance with diet and medication regimen. Patient felt better and decided to leave AGAINST MEDICAL ADVICE. The risks and consequences of signing AGAINST MEDICAL ADVICE were discussed with patient in detail. Patient verbalized understanding, nevertheless signed AMA form and left. FINAL DIAGNOSES: Acute on chronic congestive heart failure with systolic and diastolic dysfunction Atrial fibrillation Cardiomyopathy Remote history of coronary artery disease (details unknown) Hypertension, likely hypertensive kidney disease Gout Morbid obesity Chronic kidney disease Right eye with retinal detachment Noncompliance with medication and diet GERD Hypercalcemia I have been assigned to dictate discharge summary for this account. I was not involved in the patient's management. Kasie Villeda NP Dec 12, 2018 20:32
--- NOTE | 2018-12-13 11:03 | Diagnostic Imaging Report ---
APPROVED REPORT CPT Code: 61768 Present Symptoms Lower Extremity Edema: Comments: Swelling BILATERAL: Imaging reveals a patent deep venous system bilaterally. There is no evidence of thrombus within the common femoral, superficial femoral, popliteal or tibial segments. The greater saphenous veins are within normal limits. Doppler indicates normal spontaneous flow within these segments.
--- NOTE | 2018-12-13 15:08 | Cardiology Report ---
APPROVED REPORT EKG Measurement Heart [id number] Atrial fibrillation with premature ventricular or aberrantly conducted complexes Minimal voltage criteria for LVH, may be normal variant Prolonged QT Abnormal ECG
== END 2018-12-11 08:00 | disposition left against medical advice (07) | DRG 291 ==
LOC: EMR 02:13 → 2E 03:08 → EDBEDREQ 03:32 → 3E 12-10 16:00
DX: I13.0 Hypertensive heart and chronic kidney disease with heart failure and stage 1 through stage 4 chronic kidney disease, or unspecified chronic kidney disease (principal); I50.43 Acute on chronic combined systolic (congestive) and diastolic (congestive) heart failure; H33.21 Serous retinal detachment, right eye; E66.01 Morbid (severe) obesity due to excess calories; M10.9 Gout, unspecified; I48.0 Paroxysmal atrial fibrillation; I25.10 Atherosclerotic heart disease of native coronary artery without angina pectoris; K21.9 Gastro-esophageal reflux disease without esophagitis; I42.9 Cardiomyopathy, unspecified; Z91.14 Patient's other noncompliance with medication regimen; Z91.19 Patient's noncompliance with other medical treatment and regimen; E83.52 Hypercalcemia; Z68.31 Body mass index [BMI] 31.0-31.9, adult
CPT/HCPCS: 36415; 71045; 76770; 80053; 80061; 82550; 82553; 82607; 82728; 82746; 82977; 83036; 83540; 83550; 83735; 83880; 83970; 84100; 84300; 84439; 84443; 84481; 84484; 84550; 85025; 86140; 93005; 93306; 93970; 96365; 96375; 99285; J8499

== ENCOUNTER 2018-12-22 17:17 | Emergency (ER) | payer MEDICARE, MEDICAID ==
[~2018-12-22] VITALS: Ht 177.8 cm; Wt 99.8 kg
[~2018-12-22 17:17] MED LIST changes: +ASPIRIN EC81 MG ORAL; +BETAMETHASONE D15 GM TP; +COLCRYS0.6 M1 PO; +IBUPROFEN600 MG ORAL; +K-TAB ER20 MEQ PO
[2018-12-22 17:36] VITALS: BP 127/76
--- NOTE | 2018-12-22 18:29 | Emergency Room Report ---
History of Present Illness General Chief Complaint: Medication Refill Source: Patient, Medical Record Present Illness HPI 68-year-old male presents to the emergency department requesting medication refill for his Lasix that he takes as needed for chronic lower extremity edema. Patient reports 10 out of 10 severity swelling to the bilateral ankles he states he has pain due to the swelling. Patient denies trauma or fall. Denies cough, shortness of breath, chest pain or palpitations. Denies sputum production or hemoptysis. Denies claudication or dyspnea on exertion. He is requesting Toradol injection to reduce his inflammation. Patient denies erythema, warmth, rashes, fevers or chills. Pt. with hx of Afib, CHR, GOUT and HTN. Allergies: Coded Allergies: No Known Allergies (Unverified , 11/25/18) Patient History Past Medical History: see triage record, HTN, CHF, other - LE edema Past Surgical History: none Pertinent Family History: none Reviewed Nursing Documentation: PMH: Agreed; PSxH: Agreed Nursing Documentation-PMH Past Medical History: No History, Except For Hx Cardiac Problems: Yes - afib, chf Hx Hypertension: Yes Hx Pacemaker: No Hx Asthma: No Hx COPD: No Hx Diabetes: No Hx Cancer: No Hx Gastrointestinal Problems: No Hx Dialysis: No - CRF Hx Neurological Problems: No - GOUT Hx Cerebrovascular Accident: No Hx Seizures: No Review of Systems All Other Systems: negative except mentioned in HPI Physical Exam Vital Signs Date Time Temp Pulse Resp B/P (MAP) Pulse Ox O2 Delivery O2 Flow Rate FiO2 12/22/18 17:36 98.2 87 16 127/76 (93) 100 Room Air Sp02 EP Interpretation: reviewed, normal General Appearance: well appearing, no apparent distress, alert, GCS 15, non- toxic Head: normocephalic, atraumatic Eyes: bilateral eye normal inspection, bilateral eye PERRL ENT: hearing grossly normal, normal voice Neck: full range of motion Respiratory: lungs clear, normal breath sounds, no respiratory distress, no accessory muscle use, no wheezing, speaking full sentences Cardiovascular #1: normal inspection, no gallop, no JVD, no murmur, no rub, irregularly irregular, edema - 1+ non pitting edema to the LE's bilaterally. No erythema or warmth. Musculoskeletal: back normal, gait/station normal, normal range of motion Neurologic: alert, oriented x3, responsive, motor strength/tone normal, sensory intact, normal gait, speech normal, grossly normal Psychiatric: judgement/insight normal Skin: normal color, no rash, warm/dry, well hydrated Lymphatic: no adenopathy Medical Decision Making PA Attestation Dr. Celeste is my supervising Physician whom patient management has been discussed with. Diagnostic Impression: Primary Impression: Encounter for medication refill Additional Impression: Peripheral edema ER Course 68-year-old male presents to the emergency department requesting medication refill for his Lasix that he takes as needed for chronic lower extremity edema. Patient reports 10 out of 10 severity swelling to the bilateral ankles he states he has pain due to the swelling. Patient denies trauma or fall. Denies cough, shortness of breath, chest pain or palpitations. Denies sputum production or hemoptysis. Denies claudication or dyspnea on exertion. He is requesting Toradol injection to reduce his inflammation. Patient denies erythema, warmth, rashes, fevers or chills. Pt. with hx of Afib, CHR, GOUT and HTN. several old charts are reviewed, in addition to documentation regarding recent hospitalization earlier this month. ---d/w pt. that due to his hx of CKD Toradol needs to be administered by his pcp. his cr. was elevated at last visit. --Pt. habitually uses ED for medication refills and does not follow up with PCP. Ddx considered but are not limited to: drug seeking, OD, noncompliance with follow-up instructions, CHF, chronic lymphedema, or cellulitis just to name a few Vital signs: are WNL, pt. is afebrile- H&PE are most consistent with need for medication refill. non-toxic in appearance, non-labored breathing, NAD. 1+ non pitting edema to the LE's bilaterally. lungs CTA ORDERS: none required at this time, the diagnosis is clinical ED INTERVENTIONS: -Tylenol PO DISCHARGE: At this time pt. is stable for d/c to home. Will provide printed patient care instructions, and any necessary prescriptions. Care plan and follow up instructions have been discussed with the patient prior to discharge. Last Vital Signs Date Time Temp Pulse Resp B/P (MAP) Pulse Ox O2 Delivery O2 Flow Rate FiO2 12/22/18 17:36 98.2 16 127/76 100 Room Air 6/20/19 17:36 87 Disposition: HOME, SELF-CARE Condition: Stable Scripts Furosemide* (LASIX*) 40 Mg Tablet 40 MG ORAL TWICE A DAY for 14 Days, #28 TAB 0 Refills Prov: Amy Salmon 12/22/18 Patient Instructions: Medicine Refill at the Emergency Department Additional Instructions: Take medications as directed. Follow up with a Primary Care Provider in 3-5 days, even if your symptoms have resolved. --Please review list of primary care clinics, if you do not already have a primary care provider Return sooner to ED if new symptoms occur, or current symptoms become worse. - Please note that this Emergency Department Report was dictated using [employer] printing technology software, occasionally this can lead to erroneous entry secondary to interpretation by the dictation equipment. Amy Salmon Dec 22, 2018 18:29
[2018-12-22] MEDS ORDERED: FUROSEMIDE40 MG ORAL (18:30)
[2018-12-22 18:51] VITALS: BP 127/76
--- NOTE | 2018-12-22 18:54 | NUR ---
ED Nurse Note: pt came in for med refil and pain . pt medicated . ED Nurse Note: Pt cleared by health care Provider for discharge. DC instructions/prescription was given and explained to pt and verbalized understanding of teachings. All medical deviecs such as ID band removed. Pt is AAO x4, ambulatory and left with all personal belongings.
== END 2018-12-22 18:51 | disposition home or self-care (01) ==
LOC: EMR 18:40
DX: R60.0 Localized edema (principal); Z76.0 Encounter for issue of repeat prescription; I50.9 Heart failure, unspecified; I11.0 Hypertensive heart disease with heart failure
CPT/HCPCS: 99282

== ENCOUNTER 2019-01-01 11:01 | Emergency (ER) | payer MEDICARE, MEDICAID ==
[~2019-01-01] VITALS: Ht 165.1 cm; Wt 99.8 kg
[2019-01-01 11:10] VITALS: BP 123/83
[2019-01-01] MEDS ORDERED: Ketorolac 60mg Inj IM ONE (11:15)
--- NOTE | 2019-01-01 11:19 | NUR ---
ED Nurse Note: pt walked in to ED due to bilateral leg pain for 1 day. no recent injury. hx of gout. AAO x4. respirations even and non-labored noted. will wait for the further order.
[2019-01-01 11:49] VITALS: BP 123/83
--- NOTE | 2019-01-01 11:49 | NUR ---
ER DISCHARGE NOTE: Patient is cleared to be discharged per ERMD, pt is aox4, on room air, with stable vital signs. pt was given dc instructions, pt was able to verbalize understanding, pt id band removed. pt is able to ambulate with steady gait. pt took all belongings.
--- NOTE | 2019-01-01 12:18 | Emergency Room Report ---
History of Present Illness General Chief Complaint: Pain Source: Patient, Medical Record Present Illness HPI Patient presents with complaints of left toe pain reports that he needs a shot of Toradol Denies any fevers or chills denies any chest pain or shortness of breath patient has had previous presentation with CHF as well Denies any dysuria frequency denies any fall or trauma Allergies: Coded Allergies: No Known Allergies (Unverified , 11/25/18) Patient History Past Medical History: see triage record Pertinent Family History: none Reviewed Nursing Documentation: PMH: Agreed; PSxH: Agreed Nursing Documentation-PMH Past Medical History: No History, Except For Hx Cardiac Problems: Yes - afib, chf Hx Hypertension: Yes Hx Pacemaker: No Hx Asthma: No Hx COPD: No Hx Diabetes: No Hx Cancer: No Hx Gastrointestinal Problems: No Hx Dialysis: No - CRF Hx Neurological Problems: No - GOUT Hx Cerebrovascular Accident: No Hx Seizures: No Review of Systems All Other Systems: negative except mentioned in HPI Physical Exam Vital Signs Date Time Temp Pulse Resp B/P (MAP) Pulse Ox O2 Delivery O2 Flow Rate FiO2 01/01/19 11:10 97.5 71 16 123/83 (96) 99 Room Air Sp02 EP Interpretation: reviewed, normal General Appearance: well appearing, no apparent distress Head: normocephalic, atraumatic Eyes: bilateral eye PERRL, bilateral eye EOMI ENT: hearing grossly normal, normal pharynx, TMs + canals normal, uvula midline Neck: full range of motion, supple, no meningismus, no bony tend Respiratory: lungs clear, normal breath sounds, no rhonchi, no respiratory distress, no retraction, no accessory muscle use Cardiovascular #1: normal peripheral pulses, regular rate, rhythm, no gallop, no JVD, no murmur Gastrointestinal: normal bowel sounds, non tender, soft, no mass, no organomegaly, non-distended, no guarding, no hernia, no pulsatile mass, no rebound Genitourinary: no CVA tenderness Musculoskeletal: normal inspection - No erythema moving all extremities equally Neurologic: oriented x3, responsive, silver steward III-XII nml as tested, motor strength/ tone normal, sensory intact Psychiatric: mood/affect normal Skin: other - Dependent edema bilaterally ankles Lymphatic: normal inspection, no adenopathy Medical Decision Making Diagnostic Impression: Primary Impression: Chronic gout ER Course I have discussed with the patient that I have some concern regarding multiple IM injections of Toradol Patient is resistant to speaking further regarding outpatient follow-up Understands the risk of kidney failure and other injuries with this medication and requesting the injection patient was provided a very low dose Of this medicine and is stable for close follow-up Last Vital Signs Date Time Temp Pulse Resp B/P (MAP) Pulse Ox O2 Delivery O2 Flow Rate FiO2 01/01/19 11:49 97.5 71 16 123/83 99 Room Air Status: improved Disposition: HOME, SELF-CARE Condition: Improved Referrals: [facility] Jocelyne Pineda [facility] Patient Instructions: Gout, [id number] Additional Instructions: Patient is provided with the discharge instructions notified to follow up with primary doctor in the next 2-3 days otherwise return to the er with any worsening symptoms. Please note that this report is being documented using [employer] technology. This can lead to erroneous entry secondary to incorrect interpretation by the dictating instrument. Christie Celeste DO Jan 01, 2019 12:18
== END 2019-01-01 12:00 | disposition home or self-care (01) ==
LOC: EMR 11:55
DX: M1A.9XX0 Chronic gout, unspecified, without tophus (tophi) (principal); I11.0 Hypertensive heart disease with heart failure; I50.9 Heart failure, unspecified
CPT/HCPCS: 96372; 99283

== ENCOUNTER 2019-01-16 20:53 | Emergency (ER) | payer MEDICARE, MEDICAID ==
[~2019-01-16] VITALS: Ht 177.8 cm; Wt 99.8 kg
[2019-01-16 21:14] VITALS: BP 133/95
[2019-01-16] MEDS ORDERED: Ketorolac 30mg Inj IM ONE (21:15)
--- NOTE | 2019-01-16 21:25 | NUR ---
ED Nurse Note: Patient walked in to ER c/o gout attack. Per patient he has lowere leg pain 6/10 since this morning. AAO x4, VSS at this time, skin is dry, warm to touch.
[2019-01-16 21:43] VITALS: BP 133/95
--- NOTE | 2019-01-16 21:44 | NUR ---
ED Nurse Note: Pt cleared by health care Provider for discharge. DC instructions/prescription was given and explained to pt and verbalized understanding of teachings. All medical deviecs such as ID band removed. Pt is AAO x4, ambulatory and left with all personal belongings.
--- NOTE | 2019-01-16 22:38 | Emergency Room Report ---
History of Present Illness General Chief Complaint: Pain Source: Patient Present Illness HPI 68-year-old male presents ED for evaluation. Complaining of bilateral leg pain and swelling. History of CHF. History of gout. States that he was seen at [facility] yesterday and was prescribed compression stockings. It is throbbing, 7 out of 10, nonradiating. Denies shortness of breath. States he has been taking Lasix. States that he used to have a primary care doctor but not at this time. No other aggravating relieving factors. Denies any other associated symptoms Allergies: Coded Allergies: No Known Allergies (Unverified , 11/25/18) Patient History Past Medical History: HTN, CHF, other - gout Past Surgical History: none Pertinent Family History: none Social History: Denies: smoking, alcohol use, drug use Immunizations: UTD Reviewed Nursing Documentation: PMH: Agreed; PSxH: Agreed Nursing Documentation-PMH Past Medical History: No History, Except For Hx Cardiac Problems: Yes - afib, chf Hx Hypertension: Yes Hx Pacemaker: No Hx Asthma: No Hx COPD: No Hx Diabetes: No Hx Cancer: No Hx Gastrointestinal Problems: No Hx Dialysis: No - CRF Hx Neurological Problems: No - GOUT Hx Cerebrovascular Accident: No Hx Seizures: No Review of Systems All Other Systems: negative except mentioned in HPI Physical Exam Vital Signs Date Time Temp Pulse Resp B/P (MAP) Pulse Ox O2 Delivery O2 Flow Rate FiO2 01/16/19 20:56 98.4 97 14 133/95 (108) 98 Room Air Sp02 EP Interpretation: reviewed, normal General Appearance: no apparent distress, alert, GCS 15, non-toxic Head: normocephalic Eyes: bilateral eye normal inspection, bilateral eye PERRL ENT: normal ENT inspection Neck: normal inspection Respiratory: chest non-tender, lungs clear, normal breath sounds, speaking full sentences Cardiovascular #1: regular rate, rhythm, no edema Gastrointestinal: normal bowel sounds, non tender, soft, non-distended, no guarding, no rebound Rectal: deferred Genitourinary: no CVA tenderness Musculoskeletal: no calf tenderness, swelling - 2+ pitting edema b/l LEs Neurologic: alert, oriented x3, responsive, motor strength/tone normal, sensory intact, speech normal Psychiatric: normal inspection Skin: normal color Lymphatic: normal inspection Medical Decision Making Diagnostic Impression: Primary Impression: Chronic gout Qualified Codes: [id number].09X0 - Idiopathic chronic gout, multiple sites, without tophus (tophi) Additional Impression: Peripheral edema ER Course Hospital Course 68-year-old M presents ED with bilateral leg pain and swelling. History of gout Differential diagnoses include: Fracture, dislocation, sprain, contusion, bursitis, septic joint Clinical course Patient placed on stretcher. After initial history, physical exam reveals an elderly male in no acute distress. There is pitting edema to bilateral lower extremities. No erythema or induration. Patient is [place] [facility] [place] has been here multiple times for similar presentations. Patient goes from ER to ER for his care. Has not yet established primary care and tells us on every visit that he is about to see a new doctor. Encourage patient to continue his Lasix. I see no reason for work- up at this time. Patient given Toradol here. Encourage patient to fill his prescription for compression stockings. I will also provide him with referrals Diagnosis - chronic gout, peripheral edema Stable and discharged to home. Followup with PMD. Return to ED if symptoms recur or worsen Last Vital Signs Date Time Temp Pulse Resp B/P (MAP) Pulse Ox O2 Delivery O2 Flow Rate FiO2 01/16/19 21:49 98.4 01/16/19 21:43 14 133/95 98 Room Air 01/16/19 20:56 97 Status: improved Disposition: HOME, SELF-CARE Condition: Stable Referrals: Jocelyne Pineda [facility] Patient Instructions: Gout, [id number] Additional Instructions: use the compression stocks as previously prescribed. Mateo Galeano MD Jan 16, 2019 22:38
== END 2019-01-16 21:55 | disposition home or self-care (01) ==
LOC: EMR 21:51
DX: M1A.09X0 Idiopathic chronic gout, multiple sites, without tophus (tophi) (principal); I48.91 Unspecified atrial fibrillation; I50.9 Heart failure, unspecified; I10 Essential (primary) hypertension
CPT/HCPCS: 96372; 99283; J1885

== ENCOUNTER 2019-01-22 05:08 | Emergency (ER) | payer MEDICARE, MEDICAID ==
[~2019-01-22] VITALS: Ht 170.2 cm; Wt 91.6 kg
--- NOTE | 2019-01-22 05:23 | NUR ---
ED Nurse Note: Patient presents with complaints of gout attck, requesting toradol shot.
[2019-01-22 05:24] VITALS: BP 129/86
[2019-01-22] MEDS ORDERED: Ketorolac 60mg Inj IM ONE (05:30)
[2019-01-22] MEDS ORDERED: TRAMADOL HCL50 MG ORAL (05:34)
[2019-01-22 05:37] VITALS: BP 134/87
--- NOTE | 2019-01-24 08:06 | Emergency Room Report ---
History of Present Illness General Chief Complaint: General Complaint Source: Patient Present Illness HPI Patient is a 68-year-old male presented after increased pain to both feet. Patient had prior history of gouty arthritis. He denies any recent change in his diet. He states that he has had multiple episodes of similar symptoms in the past. Patient had prior history of multiple other medical conditions including congestive heart failure and atrial fibrillation but denies any current symptomatology related to these. He reports having recent blood tests at [facility] and had recently been hospitalized there. He denies any fever. Patient requesting pain medications. Allergies: Coded Allergies: No Known Allergies (Unverified , 11/25/18) Patient History Past Medical History: see triage record Reviewed Nursing Documentation: PMH: Agreed; PSxH: Agreed Nursing Documentation-PMH Hx Cardiac Problems: Yes - Afib; CHF Hx Hypertension: Yes Hx Pacemaker: No Hx Asthma: No Hx COPD: No Hx Diabetes: No Hx Cancer: No Hx Gastrointestinal Problems: No Hx Dialysis: No - CKD Hx Neurological Problems: Yes - detatched retina Hx Cerebrovascular Accident: No Hx Seizures: No Review of Systems All Other Systems: negative except mentioned in HPI Physical Exam Vital Signs Date Time Temp Pulse Resp B/P (MAP) Pulse Ox O2 Delivery O2 Flow Rate FiO2 01/22/19 05:11 98.1 81 16 129/86 (100) 100 Room Air General Appearance: well appearing, no apparent distress, alert, GCS 15, obese , Chronically Ill Head: normocephalic, atraumatic ENT: hearing grossly normal, normal voice Neck: full range of motion, supple Respiratory: lungs clear, no respiratory distress, speaking full sentences Cardiovascular #1: normal peripheral pulses, regular rate, rhythm, no edema Gastrointestinal: normal inspection, soft Musculoskeletal: no calf tenderness, other - slight swelling to feet Neurologic: normal inspection, alert, oriented x3, normal gait Psychiatric: mood/affect normal Skin: no rash Medical Decision Making Diagnostic Impression: Primary Impression: Chronic gout Additional Impression: Encounter for generalized patient complaints ER Course Patient presented for lower extremity pain. Differential diagnosis include was not limited to gouty arthritis, septic joint, medication reaction among others. Patient has a benign exam and does not appear to require any further imaging or laboratory testing at this time. Patient is well-known to me and has had multiple prior visits for similar symptoms. He was given prescriptions for pain medications as well as IM Toradol for pain. Patient was advised to follow- up with his primary care physician for further medications. He is advised to return if worse. Last Vital Signs Date Time Temp Pulse Resp B/P (MAP) Pulse Ox O2 Delivery O2 Flow Rate FiO2 01/22/19 05:37 98.5 01/22/19 05:37 79 16 134/87 99 Room Air Status: improved Disposition: HOME, SELF-CARE Condition: Stable Scripts Tramadol Hcl* (ULTRAM*) 50 Mg Tablet 50 MG ORAL Q6H PRN for For Pain, #10 TAB 0 Refills Prov: Fahad Castillo MD 01/22/19 Referrals: NOT CHOSEN [facility]/,REFERRING (PCP) Patient Instructions: Gout, [id number] Fahad Castillo MD Jan 24, 2019 08:06
== END 2019-01-22 05:40 | disposition home or self-care (01) ==
LOC: EMR 05:40
DX: M1A.9XX0 Chronic gout, unspecified, without tophus (tophi) (principal); E66.9 Obesity, unspecified; I13.0 Hypertensive heart and chronic kidney disease with heart failure and stage 1 through stage 4 chronic kidney disease, or unspecified chronic kidney disease; N18.9 Chronic kidney disease, unspecified; I50.9 Heart failure, unspecified; Z68.31 Body mass index [BMI] 31.0-31.9, adult
CPT/HCPCS: 96372; 99283

== ENCOUNTER 2019-02-01 09:06 | Emergency (ER) | payer MEDICARE, MEDICAID ==
[~2019-02-01] VITALS: Ht 177.8 cm; Wt 99.8 kg
[2019-02-01 09:15] VITALS: BP 112/64
--- NOTE | 2019-02-01 09:20 | NUR ---
ED Nurse Note: Patient walked into ED c/o bilateral knee pain/bilateral feet pain and swelling. patient reports he has hx of gout and was recently discharged from [facility] yesterday. Patient reports he is here to get "toradol shot" for pain. patient provided with gown but he refused to put it on at this time.
[2019-02-01] MEDS ORDERED: Ketorolac 60mg Inj IM ONE (09:45)
[2019-02-01 10:00] VITALS: BP 112/64
--- NOTE | 2019-02-01 10:00 | NUR ---
ER DISCHARGE NOTE: Patient is cleared to be discharged per ERMD DR BA, pt is aox4, on room air, with stable vital signs. pt was given dc and prescription instructions, pt was able to verbalize understanding, pt id band removed without complications. pt is able to ambulate with steady gait. pt took all belongings.
--- NOTE | 2019-02-03 07:01 | Emergency Room Report ---
History of Present Illness General Chief Complaint: Pain Source: Patient Present Illness HPI Patient is a 68-year-old male who presents after increased bilateral lower extremity pain. Patient a prior history of chronic gout. He states that he had been having worsening pain. He had recently been discharged from [facility]. He reports having increased bilateral leg pain. This is worse with movement. He states this feels similar to his prior gout episodes. He had prior history of chronic pain and has multiple prior ER visits. He also has prior history of congestive heart failure as well as rapid A. fib. Patient denied any shortness of breath and states that his weight has been stable. He denies any fever. He denies any numbness to his extremities. Allergies: Coded Allergies: No Known Allergies (Unverified , 11/25/18) Patient History Reviewed Nursing Documentation: PMH: Agreed; PSxH: Agreed Nursing Documentation-PMH Past Medical History: No History, Except For Hx Cardiac Problems: Yes - Afib; CHF Hx Hypertension: Yes Hx Pacemaker: No Hx Asthma: No Hx COPD: No Hx Diabetes: No Hx Cancer: No Hx Gastrointestinal Problems: No Hx Dialysis: No - CKD Hx Neurological Problems: Yes - detatched retina Hx Cerebrovascular Accident: No Hx Seizures: No Review of Systems All Other Systems: negative except mentioned in HPI Physical Exam Vital Signs Date Time Temp Pulse Resp B/P (MAP) Pulse Ox O2 Delivery O2 Flow Rate FiO2 02/01/19 09:15 97.9 95 21 112/64 97 Room Air General Appearance: well appearing, no apparent distress, alert, GCS 15, obese , Chronically Ill Head: normocephalic, atraumatic ENT: hearing grossly normal, normal voice Neck: full range of motion, supple Respiratory: lungs clear, normal breath sounds, no respiratory distress, speaking full sentences Cardiovascular #1: irregularly irregular Gastrointestinal: normal inspection, soft Musculoskeletal: decreased range of mation Neurologic: normal inspection, alert, oriented x3, responsive, normal gait Psychiatric: mood/affect normal Skin: no rash Medical Decision Making Diagnostic Impression: Primary Impression: Gout attack ER Course Patient presented for bilateral lower extremity joint pain. Differential diagnosis include was not limited to gouty arthritis, peripheral vascular disease, neuropathy among others. Patient has a benign exam and does not appear to require any further imaging or laboratory testing at this time. Patient is well-known to me from multiple prior ER visits. Patient seems to have rate controlled atrial fibrillation and does not show any evidence of congestive heart failure at this time. Patient was given a shot of IM Toradol. He was noted to have improvement in his pain. Patient had previously been given prescription for tramadol and has primary care physician who he can see for pain medications. Patient was advised to return if he had any worsening of condition or other concerns. Last Vital Signs Date Time Temp Pulse Resp B/P (MAP) Pulse Ox O2 Delivery O2 Flow Rate FiO2 02/01/19 10:00 97.9 95 21 112/64 97 Room Air Status: improved Disposition: HOME, SELF-CARE Condition: Stable Referrals: NOT CHOSEN [facility]/,REFERRING (PCP) Patient Instructions: Gout, [id number] Fahad Castillo MD Feb 03, 2019 07:01
== END 2019-02-01 10:00 | disposition home or self-care (01) ==
LOC: EMR 09:45
DX: M10.9 Gout, unspecified (principal); I10 Essential (primary) hypertension; I13.0 Hypertensive heart and chronic kidney disease with heart failure and stage 1 through stage 4 chronic kidney disease, or unspecified chronic kidney disease; N18.9 Chronic kidney disease, unspecified; I50.9 Heart failure, unspecified; I48.91 Unspecified atrial fibrillation
CPT/HCPCS: 96372; 99283

== ENCOUNTER 2019-02-10 05:49 | Emergency (ER) | payer MEDICARE, MEDICAID ==
[~2019-02-10] VITALS: Ht 177.8 cm; Wt 99.8 kg
--- NOTE | 2019-02-10 06:00 | NUR ---
ED Nurse Note: Pt ambulated to Ed from home c/o Gout pain bilaterally in lower legs, pt also has +3 pitting edema bilat. Pt is A&Ox4, VSS
[2019-02-10 06:04] VITALS: BP 171/117
--- NOTE | 2019-02-10 06:21 | Emergency Room Report ---
History of Present Illness General Chief Complaint: Edema Source: Patient Present Illness HPI Patient is a 68-year-old male presents after increased lower extremity swelling. Patient had prior history of atrial fibrillation as well as congestive heart failure. He reports taking Lasix 40 mg twice a day. He reports having increased swelling to both lower extremities. He states that he had recently been hospitalized at [facility] [place]. He had recently been discharged. He was noted to have some increased swelling to both legs. He denies any fevers. He reports having some pain to both legs. He has prior history of chronic pain as well as gout. Allergies: Coded Allergies: No Known Allergies (Unverified , 11/25/18) Patient History Past Medical History: see triage record Reviewed Nursing Documentation: PMH: Agreed; PSxH: Agreed Nursing Documentation-PMH Past Medical History: No History, Except For Hx Cardiac Problems: Yes - Afib; CHF Hx Hypertension: Yes Hx Pacemaker: No Hx Asthma: No Hx COPD: No Hx Diabetes: No Hx Cancer: No Hx Gastrointestinal Problems: No Hx Dialysis: No - CKD Hx Neurological Problems: Yes - detatched retina Hx Cerebrovascular Accident: No Hx Seizures: No Review of Systems All Other Systems: negative except mentioned in HPI Physical Exam Vital Signs Date Time Temp Pulse Resp B/P (MAP) Pulse Ox O2 Delivery O2 Flow Rate FiO2 02/10/19 05:51 97.5 101 14 171/117 (135) 98 Room Air Sp02 EP Interpretation: reviewed, normal General Appearance: normal inspection, well appearing, no apparent distress, alert, GCS 15 Head: atraumatic ENT: normal ENT inspection, hearing grossly normal, normal voice Neck: normal inspection, full range of motion, supple, no bony tend Respiratory: normal inspection, lungs clear, normal breath sounds, no respiratory distress, no retraction, no wheezing Cardiovascular #1: no edema, irregularly irregular Gastrointestinal: normal inspection, normal bowel sounds, non tender, soft, no guarding, no hernia Genitourinary: no CVA tenderness Musculoskeletal: normal inspection, back normal, normal range of motion Neurologic: normal inspection, alert, oriented x3, responsive, speech pathology assistant III-XII nml as tested, speech normal Psychiatric: normal inspection, judgement/insight normal, mood/affect normal Medical Decision Making Diagnostic Impression: Primary Impression: Peripheral edema Additional Impressions: Atrial fibrillation CHF (congestive heart failure) ER Course Patient presented for increased lower extremity swelling. Differential diagnosis include was not limited to electrolyte abnormality, congestive heart failure exacerbation, dietary indiscretion among others. Because of complexity of patient's case laboratory testing and imaging studies were ordered.Patient was noted to have what appears to be atrial fibrillation. This appeared to be rate controlled.Patient was noted to have some pedal edema. Patient's previous echo showed ejection fraction approximately 20%. He was given Toradol for discomfort. He was noted to have some improvement in symptoms. He was given Lasix and was noted to be diuresing well. A chest x-ray one view interpreted by me showed slight cardiomegaly without evident pulmonary vascular congestion or infiltrate. There is no effusion noted.Patient appears to be at his baseline status and appears to be stable for discharge. Labs Test 02/10/19 06:20 White Blood Count 8.0 K/UL (4.8-10.8) Red Blood Count 4.93 M/UL (4.70-6.10) Hemoglobin 14.5 G/DL (14.2-18.0) Hematocrit 45.3 % (42.0-52.0) Mean Corpuscular Volume 92 FL (80-99) Mean Corpuscular Hemoglobin 29.4 PG (27.0-31.0) Mean Corpuscular Hemoglobin Concent 31.9 G/DL (32.0-36.0) Red Cell Distribution Width 13.0 % (11.6-14.8) Platelet Count 216 K/UL (150-450) Mean Platelet Volume 8.6 FL (6.5-10.1) Neutrophils (%) (Auto) 60.3 % (45.0-75.0) Lymphocytes (%) (Auto) 21.6 % (20.0-45.0) Monocytes (%) (Auto) 13.6 % (1.0-10.0) Eosinophils (%) (Auto) 3.6 % (0.0-3.0) Basophils (%) (Auto) 0.9 % (0.0-2.0) Sodium Level 140 MMOL/L (136-145) Potassium Level 4.3 MMOL/L (3.5-5.1) Chloride Level 109 MMOL/L (98-107) Carbon Dioxide Level 26 MMOL/L (21-32) Anion Gap 5 mmol/L (5-15) Blood Urea Nitrogen 32 mg/dL (7-18) Creatinine 1.9 MG/DL (0.55-1.30) Estimat Glomerular Filtration Rate 42.9 mL/min (>60) Glucose Level 91 MG/DL (74-106) Calcium Level 10.9 MG/DL (8.5-10.1) Total Bilirubin 0.3 MG/DL (0.2-1.0) Aspartate Amino Transf (AST/SGOT) 16 U/L (15-37) Alanine Aminotransferase (ALT/SGPT) 24 U/L (12-78) Alkaline Phosphatase 133 U/L (46-116) Troponin I 0.012 ng/mL (0.000-0.056) Pro-B-Type Natriuretic Peptide 1056 pg/mL (0-125) Total Protein 7.1 G/DL (6.4-8.2) Albumin 3.4 G/DL (3.4-5.0) Globulin 3.7 g/dL Albumin/Globulin Ratio 0.9 (1.0-2.7) EKG Diagnostic Results Rate: normal Rhythm: other - a Fibrillation ST Segments: no acute changes Last Vital Signs Date Time Temp Pulse Resp B/P (MAP) Pulse Ox O2 Delivery O2 Flow Rate FiO2 02/10/19 06:04 101 14 Room Air 02/10/19 06:04 97.5 171/117 98 Status: improved Disposition: HOME, SELF-CARE Condition: Stable Fahad Castillo MD Feb 10, 2019 06:21
[2019-02-10 06:39] LABS: BASOPHILS % (AUTO) 0.9 % (0.0-2.0); EOSINOPHILS % (AUTO) 3.6 % (0.0-3.0); HEMATOCRIT 45.3 % (42.0-52.0); HEMOGLOBIN 14.5 G/DL (14.2-18.0); LYMPHOCYTES % (AUTO) 21.6 % (20.0-45.0); MEAN CORPUSCULAR VOLUME 92 FL (80-99); MONOCYTES % (AUTO) 13.6 % (1.0-10.0); NEUTROPHILS % (AUTO) 60.3 % (45.0-75.0); PLATELET COUNT 216 K/UL (150-450); RED BLOOD COUNT 4.93 M/UL (4.70-6.10)
[2019-02-10] MEDS ORDERED: dilTIAZem HCl 25mg/5ml Inj IVP ONE (06:45)
[2019-02-10 06:47] LABS: ANION GAP 5 mmol/L (5-15); BLOOD UREA NITROGEN 32 mg/dL (7-18); CALCIUM 10.9 MG/DL (8.5-10.1); CARBON DIOXIDE 26 MMOL/L (21-32); CHLORIDE 109 MMOL/L (98-107); CREATININE 1.9 MG/DL (0.55-1.30); POTASSIUM 4.3 MMOL/L (3.5-5.1); SODIUM 140 MMOL/L (136-145)
[2019-02-10 07:00] LABS: ALANINE AMINOTRANSFERASE 24 U/L (12-78); ALBUMIN 3.4 G/DL (3.4-5.0); ALBUMIN/GLOBULIN RATIO 0.9 (1.0-2.7); ALKALINE PHOSPHATASE 133 U/L (46-116); ASPARTATE AMINO TRANSFERASE 16 U/L (15-37); BILIRUBIN,TOTAL 0.3 MG/DL (0.2-1.0)
--- NOTE | 2019-02-10 07:05 | NUR ---
HAND-OFF: Report given to Krystian Frausto RN.
[2019-02-10] MEDS ORDERED: Ketorolac 30mg Inj IV ONE (07:15)
[2019-02-10] MEDS ORDERED: TRAMADOL HCL50 MG ORAL (07:24)
[2019-02-10 07:46] VITALS: BP 144/87
[2019-02-10 07:47] VITALS: BP 144/87
--- NOTE | 2019-02-10 07:49 | NUR ---
ED Nurse Note: Notified ERMD that pt's HR is in btwn 110-128 irregular. Per ERMD, pt's irregular HR is his baseline and his condition is better since the arrival. Pt cleared by health care Provider for discharge. DC instructions/prescription was given and explained to pt and verbalized understanding of teachings. All medical deviecs such as ID band and IV removed. Pt is AAO x4, ambulatory and left with all personal belongings.
--- NOTE | 2019-02-10 11:29 | Diagnostic Imaging Report ---
Indication: Chest pain, shortness of breath Technique: XRAY Chest 1v Comparison: 12/10/2018 Findings: Stable cardiomegaly. Mediastinal contours are sharp. No is equivocal minimal interstitial fullness. There is again noted to be tortuous and ectatic. There is no definite focal airspace consolidation, pleural effusion or pneumothorax. No acute osseous abnormality. Impression: No significant interval change compared to prior exam. Cardiomegaly with equivocal interstitial congestion. Correlation with clinical findings is recommended. No focal airspace consolidation, pleural effusion, pneumothorax or evidence of alveolar edema.
--- NOTE | 2019-02-12 14:58 | Cardiology Report ---
APPROVED REPORT EKG Measurement Heart [id number] Atrial fibrillation with rapid ventricular response with premature ventricular or aberrantly conducted complexes Minimal voltage criteria for LVH, may be normal variant Abnormal ECG
== END 2019-02-10 08:04 | disposition home or self-care (01) ==
LOC: EMR 06:18
DX: R60.0 Localized edema (principal); I48.91 Unspecified atrial fibrillation; I11.0 Hypertensive heart disease with heart failure; I50.9 Heart failure, unspecified
CPT/HCPCS: 36415; 71045; 80053; 83880; 84484; 85025; 93005; 96374; 96375; 99284; J1885; J1940

== ENCOUNTER 2019-02-25 20:59 | Emergency (ER) | payer MEDICARE, MEDICAID ==
[~2019-02-25] VITALS: Ht 177.8 cm; Wt 97.5 kg
[2019-02-25 21:15] VITALS: BP 130/84
--- NOTE | 2019-02-25 21:20 | NUR ---
ED Nurse Note: Patient walked into ER due to joints pain 02/11. Stated that has severe RA and pain was unbearable today. AAO x 4, VSS at this time, skin is dry warm to touch. Patient presented with bilaterally, non pitting, edema.
[2019-02-25] MEDS ORDERED: Bumetanide 1mg tab ORAL STA (21:34)
--- NOTE | 2019-02-25 21:37 | Emergency Room Report ---
History of Present Illness General Chief Complaint: Edema Source: Patient, Medical Record Present Illness HPI Patient presents with increased swelling in his legs and hands with pain. Denies any fevers or chills. He is using Lasix 40mg twice a day. He is been traveling and therefore it is been difficult to take as directed. He also takes aspirin. He states he does not take any other pain medication at this time. He states he is running low on his Lasix. No fevers, chills, sore throat, chest pain, palpitations, nausea, vomiting, diarrhea, dysuria, abdominal pain, shortness of breath, rashes, depression, anxiety, visual changes (glaucoma stable), headache. The patient has a history of gout and cor pulmonale. History of atrial fibrillation. Recent evaluation without left-sided heart failure. Allergies: Coded Allergies: No Known Allergies (Unverified , 11/25/18) Patient History Past Medical History: see triage record, old chart reviewed Social History: Denies: smoking, alcohol use, drug use Social History Narrative Traveling to [place] and working on a [employer] contract Reviewed Nursing Documentation: PMH: Agreed; PSxH: Agreed Nursing Documentation-PMH Past Medical History: No History, Except For Hx Cardiac Problems: Yes - Afib; CHF Hx Hypertension: Yes Hx Pacemaker: No Hx Asthma: No Hx COPD: No Hx Diabetes: No Hx Cancer: No Hx Gastrointestinal Problems: No Hx Dialysis: No - CKD Hx Neurological Problems: Yes - detatched retina Hx Cerebrovascular Accident: No Hx Seizures: No Review of Systems All Other Systems: negative except mentioned in HPI Physical Exam Vital Signs Date Time Temp Pulse Resp B/P (MAP) Pulse Ox O2 Delivery O2 Flow Rate FiO2 02/25/19 21:02 98.4 87 18 130/84 (99) 100 Room Air Sp02 EP Interpretation: reviewed, normal General Appearance: well appearing, no apparent distress, GCS 15 Head: normocephalic Eyes: right eye other - Changes of glaucoma; bilateral eye EOMI ENT: moist mucus membranes Neck: supple Respiratory: chest non-tender, lungs clear, normal breath sounds Cardiovascular #1: regular rate, rhythm, edema - 1-2+ pitting bilaterally Cardiovascular #2: 2+ radial (R) Gastrointestinal: normal inspection, normal bowel sounds, non tender, no mass, non-distended Musculoskeletal: back normal, gait/station normal, normal range of motion Neurologic: alert, oriented x3, grossly normal Psychiatric: mood/affect normal Skin: other - Venous disease Medical Decision Making Diagnostic Impression: Primary Impression: Edema Qualified Codes: R60.0 - Localized edema Additional Impression: Chronic pain Qualified Codes: G89.29 - Other chronic pain ER Course Patient presents with distant edema and chronic pain. Differential includes medical noncompliance, edema, DVT, gout, drug-seeking behavior amongst others. There is no evidence of DVT or cellulitis at this time. Records are reviewed. There is no indication for laboratory testing at this point. The patient will be given a dose of Bumex and also oral analgesics. Patient sleeping after Percocet. Not great response to Bumex. Lasix is given. Patient is asked what else he needs. He states a prescription for Lasix. There is no medical emergency at this time. Patient is improved. Patient stable for outpatient observation and treatment. Last Vital Signs Date Time Temp Pulse Resp B/P (MAP) Pulse Ox O2 Delivery O2 Flow Rate FiO2 02/25/19 23:19 98.4 82 18 135/78 100 Room Air Status: improved Disposition: HOME, SELF-CARE Condition: Improved Scripts Furosemide* (LASIX*) 40 Mg Tablet 40 MG ORAL TWICE A DAY, #30 TAB 0 Refills Prov: Tim Gil MD 02/25/19 Comp.stocking,Thigh,Short,Lrg (T.E.D. ANTI-EMBOLISM STOCKING) 1 Each Each EACH , #2 Prov: Tim Gil MD 02/25/19 Tim Gil MD Feb 25, 2019 21:37
[2019-02-25] MEDS ORDERED: oxyCODONE HCL/Acetaminophen 5/325mg ORAL ONE (21:45)
[2019-02-25] MEDS ORDERED: T.E.D. ANTI-EM1 EA10 MC (23:13)
[2019-02-25] MEDS ORDERED: Furosemide 40mg tab ORAL ONE (23:15)
[2019-02-25 23:17] VITALS: BP 135/78
[2019-02-25] MEDS ORDERED: FUROSEMIDE40 MG ORAL (23:18)
[2019-02-25 23:19] VITALS: BP 135/78
== END 2019-02-25 23:20 | disposition home or self-care (01) ==
LOC: EMR 21:45
DX: R60.0 Localized edema (principal); G89.29 Other chronic pain; Z79.82 Long term (current) use of aspirin; I11.0 Hypertensive heart disease with heart failure; I50.9 Heart failure, unspecified; I48.91 Unspecified atrial fibrillation; M10.9 Gout, unspecified
CPT/HCPCS: 99282

== ENCOUNTER 2019-03-01 17:40 | Emergency (ER) | payer MEDICARE, MEDICAID ==
[~2019-03-01] VITALS: Ht 177.8 cm; Wt 99.8 kg
[~2019-03-01 17:40] MED LIST changes: +T.E.D. ANTI-EM1 EA10 MC
[2019-03-01 17:54] VITALS: BP 99/75
[2019-03-01] MEDS ORDERED: Ketorolac 30mg Inj IV ONE (18:15)
--- NOTE | 2019-03-01 18:41 | NUR ---
ED Nurse Note: pt walked in c/o bi-lat leg stan and swelling ermd eval done pt medicated NAD pt sleeping .
--- NOTE | 2019-03-01 19:09 | NUR ---
HAND-OFF: Report given to Tracy TSAI.
--- NOTE | 2019-03-01 19:39 | Emergency Room Report ---
History of Present Illness General Chief Complaint: Dyspnea/Respdistress Source: Patient Present Illness HPI 68-year-old male presents ED for evaluation. Patient is here complaining of leg swelling. Has history of CHF and A. fib. States he takes normally Lasix twice a day. States he has his medication. States sometimes he has to come to the ER to get IV Lasix. Denies chest pain or shortness of breath. Denies fevers or chills. No other aggravating relieving factors. Denies any other associated symptoms Allergies: Coded Allergies: No Known Allergies (Unverified , 11/25/18) Patient History Past Medical History: CHF, AFib Past Surgical History: none Pertinent Family History: none Social History: Denies: smoking, alcohol use, drug use Immunizations: UTD Reviewed Nursing Documentation: PMH: Agreed; PSxH: Agreed Nursing Documentation-PMH Past Medical History: No History, Except For Hx Cardiac Problems: Yes - Afib; CHF Hx Hypertension: Yes Hx Pacemaker: No Hx Asthma: No Hx COPD: No Hx Diabetes: No Hx Cancer: No Hx Gastrointestinal Problems: No Hx Dialysis: No - CKD Hx Neurological Problems: Yes - detatched retina on R eye Hx Cerebrovascular Accident: No Hx Seizures: No Review of Systems All Other Systems: negative except mentioned in HPI Physical Exam Vital Signs Date Time Temp Pulse Resp B/P (MAP) Pulse Ox O2 Delivery O2 Flow Rate FiO2 03/01/19 17:45 98.4 59 20 99/75 (83) 94 Room Air Sp02 EP Interpretation: reviewed, normal General Appearance: no apparent distress, alert, GCS 15, non-toxic Head: normocephalic, atraumatic Eyes: bilateral eye normal inspection, bilateral eye PERRL ENT: hearing grossly normal, normal pharynx, no angioedema, normal voice Neck: full range of motion, supple/symm/no masses Respiratory: chest non-tender, lungs clear, normal breath sounds, speaking full sentences Cardiovascular #1: regular rate, rhythm, no edema Cardiovascular #2: 2+ carotid (R), 2+ carotid (L), 2+ radial (R), 2+ radial (L) , 2+ dorsalis pedis (R), 2+ dorsalis pedis (L) Gastrointestinal: normal bowel sounds, non tender, soft, non-distended, no guarding, no rebound Rectal: deferred Genitourinary: normal inspection, no CVA tenderness Musculoskeletal: back normal, gait/station normal, normal range of motion, swelling - 1+ pitting edema b/l LEs Neurologic: alert, oriented x3, responsive, motor strength/tone normal, sensory intact, speech normal Psychiatric: judgement/insight normal, memory normal, mood/affect normal, no suicidal/homicidal ideation Reflexes: 3+ bicep (R), 3+ bicep (L), 3+ tricep (R), 3+ tricep (L), 3+ knee (R) , 3+ knee (L) Skin: no rash Lymphatic: no adenopathy Medical Decision Making Diagnostic Impression: Primary Impression: Peripheral edema ER Course Hospital Course 68 yo M presents to ED c/o bilateral leg swelling. h/o CHF Differential diagnoses include: CHF, peripheral edema, noncompliance with medication Clinical course Patient placed on stretcher. on telemetry monitor. After initial history, physical exam reveals elderly male in no acute distress. Lungs clear. Vitals stable. There is some edema in both legs. Patient is well-known to [facility] [place]. Has been here several times for similar presentation. Patient declines lab draw; requesting dose of IV Lasix and Toradol here. Ordered IV Lasix and Toradol. Patient allowed to rest. Patient states he diuresed quite a bit and feels better. Safe for discharge for close outpatient follow-up. States he has a PMD. States that he has prescription for his Lasix I. I feel this is a highly complex case requiring extensive working including EKG/Rhythm strip, Xray/CT/US, Blood/urine lab work, repeat exams while in ED, and administration of strong opiates/narcotics for pain control, admission to hospital or close patient follow up. Diagnosis - peripheral edema stable and discharged to home. f/u with PMD. return to ED if symptoms recur/ worsen. Last Vital Signs Date Time Temp Pulse Resp B/P (MAP) Pulse Ox O2 Delivery O2 Flow Rate FiO2 03/01/19 18:40 98.4 03/01/19 17:54 59 20 Room Air 03/01/19 17:54 99/75 94 Status: improved Disposition: HOME, SELF-CARE Condition: Stable Referrals: NOT CHOSEN IPA/,REFERRING (PCP) Mateo Galeano MD Mar 01, 2019 19:39
--- NOTE | 2019-03-01 21:00 | NUR ---
ED Nurse Note: Pt resting in bed with eyes closed, non-labored breathing, no signs of distress. Will continue to monitor
[2019-03-01 22:20] VITALS: BP 99/75
--- NOTE | 2019-03-01 22:20 | NUR ---
ER DISCHARGE NOTE: Patient is cleared to be discharged per ERMD, pt is aox4, on room air, with stable vital signs. pt was given dc and prescription instructions, pt was able to verbalize understanding, pt id band and iv site removed without complications. pt is able to ambulate with steady gait. pt took all belongings.
== END 2019-03-01 22:20 | disposition home or self-care (01) ==
LOC: EMR 18:00
DX: R60.0 Localized edema (principal); I50.9 Heart failure, unspecified; I48.91 Unspecified atrial fibrillation; I13.0 Hypertensive heart and chronic kidney disease with heart failure and stage 1 through stage 4 chronic kidney disease, or unspecified chronic kidney disease; N18.9 Chronic kidney disease, unspecified
CPT/HCPCS: 96374; 96375; 99284; J1885; J1940

== ENCOUNTER 2019-03-20 04:37 | Emergency (ER) | payer MEDICARE, MEDICAID ==
[~2019-03-20] VITALS: Ht 167.6 cm; Wt 81.6 kg
[2019-03-20] MEDS ORDERED: Ketorolac 30mg Inj IM ONE (05:30)
[2019-03-20 05:42] VITALS: BP 131/75
--- NOTE | 2019-03-20 05:46 | NUR ---
ED Nurse Note: Patient walked in to ER c/o lower foot pain 12/12. AAO x4, VSS at this time.
--- NOTE | 2019-03-20 06:01 | Emergency Room Report ---
History of Present Illness General Chief Complaint: Edema Source: Patient, Medical Record Present Illness HPI 68-year-old male presents ED for evaluation. Patient complaining of bilateral leg pain. Notes history of CHF. History of gout. Takes Lasix and allopurinol. Patient is well-known to [facility] and has been here multiple times for similar presentation. States that he recently returned from [place] and felt swelling in his legs. And pain. Dull, 7 out of 10, nonradiating. States the swelling is overall improved with some compression stockings. States he is compliant with the Lasix. Denies chest pain or shortness of breath. No other aggravating relieving factors. Denies any other associated symptoms Allergies: Coded Allergies: No Known Allergies (Unverified , 11/25/18) Patient History Past Medical History: HTN, CHF, AFib, other - gout Past Surgical History: none Pertinent Family History: none Social History: Denies: smoking, alcohol use, drug use Immunizations: UTD Reviewed Nursing Documentation: PMH: Agreed; PSxH: Agreed Nursing Documentation-PMH Past Medical History: No History, Except For Hx Cardiac Problems: Yes - Afib; CHF Hx Hypertension: Yes Hx Pacemaker: No Hx Asthma: No Hx COPD: No Hx Diabetes: No Hx Cancer: No Hx Gastrointestinal Problems: No Hx Dialysis: No - CKD Hx Neurological Problems: Yes - detatched retina on R eye Hx Cerebrovascular Accident: No Hx Seizures: No Review of Systems All Other Systems: negative except mentioned in HPI Physical Exam Vital Signs Date Time Temp Pulse Resp B/P (MAP) Pulse Ox O2 Delivery O2 Flow Rate FiO2 03/20/19 05:10 98.2 82 18 131/75 (93) 98 Room Air Sp02 EP Interpretation: reviewed, normal General Appearance: no apparent distress, alert, GCS 15, non-toxic Head: normocephalic Eyes: bilateral eye normal inspection, bilateral eye PERRL ENT: normal ENT inspection Neck: normal inspection Respiratory: chest non-tender, lungs clear, normal breath sounds, speaking full sentences Cardiovascular #1: regular rate, rhythm, no edema Gastrointestinal: normal inspection Rectal: deferred Genitourinary: no CVA tenderness Musculoskeletal: swelling Neurologic: alert, oriented x3, responsive, motor strength/tone normal, sensory intact, speech normal Psychiatric: normal inspection Skin: no rash Lymphatic: normal inspection Medical Decision Making Diagnostic Impression: Primary Impression: CHF (congestive heart failure) Qualified Codes: I50.9 - Heart failure, unspecified Additional Impressions: Chronic pain Qualified Codes: G89.29 - Other chronic pain Peripheral edema ER Course Hospital Course 68 yo M presents to ED c/o bilateral leg pain/swelling. h/o CHF Differential diagnoses include: gout, chronic pain, CHF Clinical course Patient placed on stretcher. After initial history, physical exam reveals an elderly male in no acute distress. There is some pain to the bilateral lower extremities. Minimal pitting. Lungs clear. I seen this patient several times in the past. His legs do appear improved overall. I encouraged him to maintain the compression stockings. Continue the Lasix. We will provide him with Toradol IM injection here Diagnosis - CHF, chronic pain, peripheral edema patient eloped prior to recieving his discharge papers Last Vital Signs Date Time Temp Pulse Resp B/P (MAP) Pulse Ox O2 Delivery O2 Flow Rate FiO2 03/20/19 05:42 98.2 18 131/75 98 Room Air 03/20/19 05:42 82 Status: improved Disposition: ELOPED Condition: Stable Referrals: NOT CHOSEN IPA/,REFERRING (PCP) Mateo Galeano MD Mar 20, 2019 06:01
== END 2019-03-20 05:30 | disposition left against medical advice (07) ==
LOC: EMR 05:17
DX: I50.9 Heart failure, unspecified (principal); I11.0 Hypertensive heart disease with heart failure; R60.0 Localized edema; G89.29 Other chronic pain; M79.605 Pain in left leg; M79.604 Pain in right leg; I48.91 Unspecified atrial fibrillation
CPT/HCPCS: 96372; 99283; J1885

== ENCOUNTER 2019-03-22 05:25 | Emergency (ER) | payer MEDICARE, MEDICAID ==
[~2019-03-22] VITALS: Ht 172.7 cm; Wt 95.3 kg
--- NOTE | 2019-03-22 05:41 | Emergency Room Report ---
History of Present Illness General Chief Complaint: SOB, rapid HR Source: Patient (Sebastian Payton MD) Present Illness HPI Disclaimer: Please note that this report is being documented using [employer] technology. This can lead to erroneous entry secondary to incorrect interpretation by the dictating instrument. HPI: 68-year-old male with a history of atrial fibrillation, CHF, gout, detached retina presents for evaluation of shortness of breath and palpitations. Symptoms have been present approximately 1 day. The patient has a history of atrial fibrillation with RVR as well as multiple emergency department visits for CHF exacerbation. States he has been compliant with his Lasix and other medications. Notes upper respiratory congestion and a nonproductive cough for 1 day with palpitations and a rapid heart rate. He denies any chest pain, fevers, vomiting, diarrhea. Takes aspirin but no anticoagulant according to patient as he had some issues with hematuria last year. He is been compliant with his metoprolol for rate control. Recently got back from [place] which he goes to for work regularly and states that the changes in climate likely gave him a cold. Has not yet gotten a flu shot this year. PMH: Hypertension, hyperlipidemia, atrial fibrillation, CHF, gout, detached retina PSH: Denies Allergies: Denies Social Hx: Quit smoking over 40 years ago (Sebastian Payton MD) Allergies: Coded Allergies: No Known Allergies (Unverified , 11/25/18) Nursing Documentation-PMH Hx Cardiac Problems: Yes - Afib; CHF Hx Hypertension: Yes Hx Pacemaker: No Hx Asthma: No Hx COPD: No Hx Diabetes: No Hx Cancer: No Hx Gastrointestinal Problems: No Hx Dialysis: No - CKD Hx Neurological Problems: Yes - detatched retina on R eye Hx Cerebrovascular Accident: No Hx Seizures: No (Sebastian Payton MD) Review of Systems All Other Systems: negative except mentioned in HPI (Sebastian Payton MD) Physical Exam General: Awake and alert, no acute distress HEENT: NC/AT. EOMI. Neck: Supple, trachea midline Chest Wall: No tenderness, no deformity Cardiovascular: Tachycardic, rate between 120 and 150. S1 and S2 normal. No murmur appreciated Resp: Normal work of breathing. Intermittent cough during exam. No wheezing or crackles appreciated Abdomen: Abdomen is soft, nondistended. Nontender Skin: Intact. No abrasions, laceration or rash over the exposed skin MSK: Normal tone and bulk. Moving all extremities. No obvious deformity. 2+ pitting edema over the ankles bilaterally Neuro: Awake and alert. Mentating appropriately. (Sebastian Payton MD) Medical Decision Making Diagnostic Impression: Primary Impression: Atrial fibrillation with rapid ventricular response Additional Impression: Bronchitis ER Course 68-year-old male history of atrial fibrillation CHF presents for evaluation of shortness of breath and palpitations. Differential includes but is not limited to CHF exacerbation, rapid atrial fibrillation, SVT, ACS, [place], bronchitis, pneumonia, pneumothorax. Patient is tachycardic and most likely a viral syndrome has put him into rapid atrial fibrillation. Will obtain EKG, chest x- ray, labs including cardiac enzymes and BN peptide. We will rate control the patient. Vital signs are otherwise stable. Disposition depending on labs and imaging results as well as patient response to interventions (Sebastian Patyon MD) ER Course This patient was turned over to me from Dr. Payton. The patient had presented with A. fib with RVR. He underwent rate control in the emergency department. Patient's laboratory work-up was at his baseline and unremarkable. The patient is well-appearing and nontoxic without respiratory distress or chest pain. He does state that he has had an ongoing respiratory infection and typically will get pneumonia. As a precaution, I will go ahead and treat this patient with a course of azithromycin given the patient's ongoing chronic medical problems that puts him at risk for infectious complications. Laboratory Tests Test 03/22/19 05:48 White Blood Count 11.2 K/UL (4.8-10.8) H Red Blood Count 5.09 M/UL (4.70-6.10) Hemoglobin 15.0 G/DL (14.2-18.0) Hematocrit 45.6 % (42.0-52.0) Mean Corpuscular Volume 90 FL (80-99) Mean Corpuscular Hemoglobin 29.4 PG (27.0-31.0) Mean Corpuscular Hemoglobin Concent 32.9 G/DL (32.0-36.0) Red Cell Distribution Width 13.1 % (11.6-14.8) Platelet Count 251 K/UL (150-450) Mean Platelet Volume 7.4 FL (6.5-10.1) Neutrophils (%) (Auto) 60.3 % (45.0-75.0) Lymphocytes (%) (Auto) 23.7 % (20.0-45.0) Monocytes (%) (Auto) 11.3 % (1.0-10.0) H Eosinophils (%) (Auto) 3.2 % (0.0-3.0) H Basophils (%) (Auto) 1.6 % (0.0-2.0) Sodium Level 138 MMOL/L (136-145) Potassium Level 4.7 MMOL/L (3.5-5.1) Chloride Level 107 MMOL/L (98-107) Carbon Dioxide Level 23 MMOL/L (21-32) Anion Gap 8 mmol/L (5-15) Blood Urea Nitrogen 28 mg/dL (7-18) H Creatinine 1.5 MG/DL (0.55-1.30) H Estimate Glomerular Filtration Rate 56.4 mL/min (>60) Glucose Level 77 MG/DL (74-106) Calcium Level 10.2 MG/DL (8.5-10.1) H Total Bilirubin 0.7 MG/DL (0.2-1.0) Aspartate Amino Transferase (AST) 43 U/L (15-37) H Alanine Aminotransferase (ALT) 50 U/L (12-78) Alkaline Phosphatase 121 U/L (46-116) H Troponin I 0.006 ng/mL (0.000-0.056) Pro-B-Type Natriuretic Peptide 1127 pg/mL (0-125) H Total Protein 7.3 G/DL (6.4-8.2) Albumin 3.7 G/DL (3.4-5.0) Globulin 3.6 g/dL Albumin/Globulin Ratio 1.0 (1.0-2.7) ([facility],Silvina . DO) EKG Diagnostic Results EKG Time: 05:41 Rate: tachycardiac Rhythm: other - Irregularly irregular Other Impression Atrial fibrillation with rapid ventricular response (Sebastian Payton MD) Rhythm Strip Diag. Results Rhythm Strip Time: 05:41 EP Interpretation: yes Rate: 150s Rhythm: other - Irregularly irregular rhythm Other Impression Atrial fibrillation with rapid ventricular response (Sebastian Payton MD) Chest X-Ray Diagnostic Results Chest X-Ray Diagnostic Results : Chest X-Ray Ordered: Yes # of Views/Limited/Complete: 1 View Indication: Shortness of Breath EP Interpretation: Yes Interpretation: no consolidation, no effusion, no pneumothorax, other - Cardiomegally Impression: No acute disease (Sebastian Payton MD) Chest X-Ray Diagnostic Results : Chest X-Ray Ordered: Yes # of Views/Limited/Complete: 1 View Indication: Other EP Interpretation: Yes Interpretation: no consolidation, no effusion, no pneumothorax, no acute cardiopulmonary disease Impression: No acute disease Electronically Signed by: Silvina See DO (Silvina See DO) Reevaluation Time: 06:46 Reevaluation Impression Patient had immediate response to 25 mg IV Cardizem. Heart rate is normalized to a rate between the 60s to 80s. Patient did drop to the mid 50s at one point but was asymptomatic during this period. No obvious infiltrate on chest x-ray but there is some bilateral congestion which may represent a viral infection. Peptide is elevated though within the patient's baseline around 1000 and. Creatinine also elevated at 1.5 again within the patient's baseline. Will monitor in the emergency department to see what his rhythm does. Can discuss with his PMD as well regarding ultimate disposition. Patient will be signed out to Dr. Douglas pending reevaluation and ultimate disposition. (Sebastian Payton MD) Status: improved (Silvina See DO) Disposition: HOME, SELF-CARE Condition: Improved Scripts Azithromycin* (ZITHROMAX*) 250 Mg Tablet 250 MG ORAL see instructions, #6 TAB 0 Refills Take two tables once daily for 1 day, then one tablet once daily for 4 days. Prov: Silvina See DO 03/22/19 Referrals: NOT CHOSEN IPA/,REFERRING (PCP) Sebastian Payton MD Mar 22, 2019 05:41 Silvina See DO Mar 22, 2019 07:50
[2019-03-22] MEDS ORDERED: dilTIAZem HCl 25mg/5ml Inj IVP ONE (05:45)
[2019-03-22 05:59] VITALS: BP 136/105
[2019-03-22 05:59] LABS: BASOPHILS % (AUTO) 1.6 % (0.0-2.0); EOSINOPHILS % (AUTO) 3.2 % (0.0-3.0); HEMATOCRIT 45.6 % (42.0-52.0); LYMPHOCYTES % (AUTO) 23.7 % (20.0-45.0); MEAN CORPUSCULAR VOLUME 90 FL (80-99); MONOCYTES % (AUTO) 11.3 % (1.0-10.0); NEUTROPHILS % (AUTO) 60.3 % (45.0-75.0); PLATELET COUNT 251 K/UL (150-450); RED BLOOD COUNT 5.09 M/UL (4.70-6.10); RED CELL DISTRIBUTION WIDTH 13.1 % (11.6-14.8); WHITE BLOOD COUNT 11.2 K/UL (4.8-10.8)
--- NOTE | 2019-03-22 06:02 | NUR ---
ER Nurse Note: Pt walked in c/o "chest feeling funny and trouble breating". Pt hx of edema, a-fib, cardaic problems. Pt stated he is on meds and is complient with med regimen. +1 pitting edema bilateral extremites. HR 140 bpm at triage. All orders completed; HR 78 bpm. Resting comfortably. Will continue to montior.
[2019-03-22 06:12] LABS: ANION GAP 8 mmol/L (5-15); BLOOD UREA NITROGEN 28 mg/dL (7-18); CALCIUM 10.2 MG/DL (8.5-10.1); CARBON DIOXIDE 23 MMOL/L (21-32); CHLORIDE 107 MMOL/L (98-107); CREATININE 1.5 MG/DL (0.55-1.30); POTASSIUM 4.7 MMOL/L (3.5-5.1); SODIUM 138 MMOL/L (136-145)
[2019-03-22 06:22] LABS: ALANINE AMINOTRANSFERASE 50 U/L (12-78); ALBUMIN 3.7 G/DL (3.4-5.0); ALKALINE PHOSPHATASE 121 U/L (46-116); ASPARTATE AMINO TRANSFERASE 43 U/L (15-37); BILIRUBIN,TOTAL 0.7 MG/DL (0.2-1.0)
[2019-03-22] MEDS ORDERED: Metoprolol 25mg tab ONE (06:29)
[2019-03-22 07:04] VITALS: BP 129/86
--- NOTE | 2019-03-22 07:06 | NUR ---
ER Nurse Note: Pt asleep, VSS, no signs of distress. All orders completed per ERMD orders. Will endorse to oncoming shift for continuity of care.
--- NOTE | 2019-03-22 07:07 | NUR ---
ED Nurse Note: Received patient in bed, patient on switch adjuster, vitals stable. patient resting comfortable in bed.
[2019-03-22] MEDS ORDERED: ZITHROMAX250 MG ORAL (07:51)
[2019-03-22 08:05] VITALS: BP 121/86
--- NOTE | 2019-03-22 08:10 | NUR ---
ER DISCHARGE NOTE: Patient is cleared to be discharged per ERMJayce JAMESON, pt is aox4, on room air, with stable vital signs. pt was given dc and prescription instructions, pt was able to verbalize understanding, pt id band and iv site removed without complications. pt is able to ambulate with steady gait. pt took all belongings.
[2019-03-22 09:00] VITALS: BP 121/86
[2019-03-22] MEDS ORDERED: Metoprolol Succinate XL 25mg tab ORAL SCH (09:00)
--- NOTE | 2019-03-22 10:22 | Diagnostic Imaging Report ---
Indication: Chest pain, shortness of breath Technique: XRAY Chest 1v Comparison: 02/10/2019 Findings: Stable cardiomegaly. Mediastinal contours are sharp. There is mild pulmonary vascular congestion without evidence of alveolar edema. There is again noted to be tortuous and ectatic. There is no definite focal airspace consolidation, pleural effusion or pneumothorax. Degenerative changes of the spine. No acute osseous abnormality. IMPRESSION: Cardiomegaly with pulmonary vascular congestion/early interstitial edema.
== END 2019-03-22 08:10 | disposition home or self-care (01) ==
LOC: EMR 05:35
DX: J40 Bronchitis, not specified as acute or chronic (principal); I48.2 Chronic atrial fibrillation; I13.0 Hypertensive heart and chronic kidney disease with heart failure and stage 1 through stage 4 chronic kidney disease, or unspecified chronic kidney disease; I50.9 Heart failure, unspecified; N18.9 Chronic kidney disease, unspecified; E78.5 Hyperlipidemia, unspecified; M10.9 Gout, unspecified; Z87.891 Personal history of nicotine dependence
CPT/HCPCS: 36415; 71045; 80053; 83880; 84484; 85025; 93005; 96374; 99284

== ENCOUNTER 2019-04-03 09:23 | Emergency (ER) | payer MEDICARE, MEDICAID ==
[~2019-04-03] VITALS: Ht 177.8 cm; Wt 99.8 kg
[~2019-04-03 09:23] MED LIST changes: +ZITHROMAX250 MG ORAL
--- NOTE | 2019-04-03 09:36 | NUR ---
ED Nurse Note: Patient walked in from home c/o bilateral leg swelling and pain x2days. Pt aaox4, no respiratory distress noted. States he was just discharged from the [facility] yesterday. Refused to be in hospital gown and to remove prerna hose on bilateral legs at this time, states he will wait for ERMD.
[2019-04-03 09:42] VITALS: BP 121/89
--- NOTE | 2019-04-03 10:04 | NUR ---
ED Nurse Note: ERMD at bedside.
--- NOTE | 2019-04-03 10:11 | Emergency Room Report ---
History of Present Illness General Chief Complaint: Edema Source: Patient, Medical Record Present Illness HPI Disclaimer: Please note that this report is being documented using [employer] technology. This can lead to erroneous entry secondary to incorrect interpretation by the dictating instrument. HPI: 68-year-old male with history of atrial fibrillation on Eliquis, hypertension, hyperlipidemia, CHF with chronic lower extremity edema and chronic lower extremity pain presents for evaluation of leg pain. I have seen the patient several times in and is well-known to the emergency department. He is requesting a shot of Toradol as he has done many times in the past. He recently returned from [facility] and was complaining of worsening lower extremity pain and edema. He was admitted for CHF exacerbation and rapid atrial fibrillation at [facility] and was released yesterday. He has been compliant with his Lasix and compression stockings. States he has his usual lower extremity pain that is relieved by Toradol and is requesting a shot of Toradol. He was unable to see his PMD today which is why he presented to the emergency department. Denies chest pain, palpitations, shortness of breath or any other symptoms at this time. PMH: Atrial fibrillation, CHF, lower extremity edema, hypertension PSH: See chart Allergies: None listed Social Hx: Denies drug or alcohol use Allergies: Coded Allergies: No Known Allergies (Unverified , 11/25/18) Nursing Documentation-PMH Hx Hypertension: Yes Hx Pacemaker: No Hx Asthma: No Hx COPD: No Hx Diabetes: No Hx Cancer: No Hx Gastrointestinal Problems: No Hx Dialysis: No - CKD Hx Neurological Problems: Yes - detatched retina on R eye Hx Cerebrovascular Accident: No Hx Seizures: No Review of Systems All Other Systems: negative except mentioned in HPI Physical Exam Vital Signs Date Time Temp Pulse Resp B/P (MAP) Pulse Ox O2 Delivery O2 Flow Rate FiO2 04/03/19 09:27 98.1 89 19 140/90 (107) 99 Room Air General: Awake and alert, no acute distress HEENT: NC/AT. EOMI. Cardiovascular: Irregularly regular rhythm, normal rate. S1 and S2 normal. Resp: Normal work of breathing. No cough, wheezing or crackles appreciated Abdomen: Abdomen is soft, nondistended. Nontender Skin: Intact. No abrasions, laceration or rash over the exposed skin MSK: Normal tone and bulk. Moving all extremities. 3+ lower extremity edema. Patient is wearing compression stockings up to his knees. Tenderness palpation over the dorsum of the feet and around the ankles and mid calf. Neuro: Awake and alert. Mentating appropriately. Medical Decision Making Diagnostic Impression: Primary Impression: Peripheral edema Additional Impression: Chronic leg pain ER Course 68-year-old male with a history of CHF and chronic lower extremity pain and edema presents requesting a shot of Toradol for his chronic pain. No new injury reported. He was discharged yesterday from nearby hospital for rapid A. fib and CHF exacerbation. He has been compliant with his medications, low-salt diet and compression stockings. No new complaints at this time. No respiratory distress, no rapid atrial fibrillation at this time. He does not want any blood work or imaging performed. We will give him 30 mg intramuscular Toradol and discharged to follow-up with his PMD. We discussed reasons to return to the emergency department. He understands and agrees with this treatment plan. Last Vital Signs Date Time Temp Pulse Resp B/P (MAP) Pulse Ox O2 Delivery O2 Flow Rate FiO2 04/03/19 09:42 90 19 Room Air 04/03/19 09:42 98.1 121/89 99 Disposition: HOME, SELF-CARE Condition: Stable Referrals: Mariano Alaniz MD Patient Instructions: Edema Additional Instructions: Continue with your Lasix, compression stockings and other medications as prescribed. Follow-up with your doctor to discuss today's emergency department visit and your recent hospital admission. Return to the emergency department any new or worsening symptoms. Sebastian Payton MD Apr 03, 2019 10:11
[2019-04-03] MEDS ORDERED: Ketorolac 30mg Inj IM ONE (10:15)
[2019-04-03 10:20] VITALS: BP 125/82
== END 2019-04-03 10:20 | disposition home or self-care (01) ==
LOC: EMR 10:00
DX: R60.0 Localized edema (principal); G89.29 Other chronic pain; M79.606 Pain in leg, unspecified; I50.9 Heart failure, unspecified; I48.91 Unspecified atrial fibrillation; I13.0 Hypertensive heart and chronic kidney disease with heart failure and stage 1 through stage 4 chronic kidney disease, or unspecified chronic kidney disease; N18.9 Chronic kidney disease, unspecified
CPT/HCPCS: 96372; 99283; J1885

== ENCOUNTER 2019-04-09 04:24 | Emergency (ER) | payer MEDICARE, MEDICAID ==
[~2019-04-09] VITALS: Ht 177.8 cm; Wt 95.3 kg
--- NOTE | 2019-04-09 04:28 | NUR ---
ED Nurse Note: patient ambulated to ed c/o bilateral foot swelling and pain for a few days. pt has hx of gout and is requesting torodol shot./ AAO x4, VSS at this time.
[2019-04-09 04:35] VITALS: BP 165/104
--- NOTE | 2019-04-09 04:48 | Emergency Room Report ---
History of Present Illness General Chief Complaint: Pain Source: Patient Present Illness HPI Disclaimer: Please note that this report is being documented using [employer] technology. This can lead to erroneous entry secondary to incorrect interpretation by the dictating instrument. HPI: 60-year-old male with a history of atrial fibrillation, gout, CHF and chronic lower extremity edema presents for evaluation of foot pain and swelling. Patient is well-known to the emergency department. He recently returned from [facility] where he states he was admitted for 3 days for CHF exacerbation, edema, rapid A. fib and gout flare. States a cardiology team evaluate him and doubled his dose of Lasix which she has been compliant with. He complains of his chronic bilateral leg pain requesting a shot of Toradol as he has done in the past. He is a patient of Dr. Alaniz but has not seen him since his admission. The patient does not want any lab work or imaging or admission at this time since he has plans to leave the [facility] to travel to [place] and [place] later today on business and personal matters. He denies any chest pain shortness of breath. Denies palpitations. PMH: Gout, atrial fibrillation, CHF, lower extreme any edema PSH: See chart Allergies: None Social Hx: Occasional cigar smoke Allergies: Coded Allergies: No Known Allergies (Unverified , 11/25/18) Nursing Documentation-PMH Past Medical History: No History, Except For Hx Hypertension: Yes Hx Pacemaker: No Hx Asthma: No Hx COPD: No Hx Diabetes: No Hx Cancer: No Hx Gastrointestinal Problems: No Hx Dialysis: No - CKD Hx Neurological Problems: Yes - detatched retina on R eye Hx Cerebrovascular Accident: No Hx Seizures: No Review of Systems All Other Systems: negative except mentioned in HPI Physical Exam Vital Signs Date Time Temp Pulse Resp B/P (MAP) Pulse Ox O2 Delivery O2 Flow Rate FiO2 04/09/19 04:28 98.4 55 16 165/104 (124) 100 Room Air General: Awake and alert, no acute distress HEENT: NC/AT. EOMI. Cardiovascular: Irregularly irregular rhythm, normal rate. S1 and S2 normal. No murmur appreciated Resp: Normal work of breathing. No cough, wheezing or crackles appreciated Skin: Intact. No abrasions, laceration or rash over the exposed skin MSK: Normal tone and bulk. Moving all extremities. 3+ lower extremity pitting edema up to the mid shins bilaterally.. Neuro: Awake and alert. Mentating appropriately. Medical Decision Making Diagnostic Impression: Primary Impression: CHF (congestive heart failure) Additional Impressions: Atrial fibrillation Edema ER Course 68-year-old male well-known to the emergency department with a history of atrial fibrillation, gout, CHF with chronic lower remedy edema presents requesting a Toradol shot for bilateral foot pain and edema. Recent admission to [facility] with doubling of his Lasix. States he has been compliant with good urine output. Denies any chest pain or shortness of breath at this time and he is not in rapid atrial fibrillation. We will give him his dose of Toradol and instructed to follow-up with his PMD especially since he is planning on leaving the state. Patient declined labs, imaging or admission at this time. He is in stable condition and suitable for outpatient follow-up especially given his recent hospitalization. Review of his labs on discharge appear to be what within the patient's baseline. Slight elevation in creatinine and BN peptide as he typically has. Will discharge to follow-up with his PMD. Discussed reasons to return to the emergency department. He understands and agrees with this treatment plan. Last Vital Signs Date Time Temp Pulse Resp B/P (MAP) Pulse Ox O2 Delivery O2 Flow Rate FiO2 04/09/19 04:28 98.4 55 16 165/104 (124) 100 Room Air Disposition: HOME, SELF-CARE Condition: Stable Sebastian Payton MD Apr 09, 2019 04:48
[2019-04-09 04:58] VITALS: BP 165/104
[2019-04-09] MEDS ORDERED: Ketorolac 30mg Inj IM ONE (05:00)
== END 2019-04-09 04:58 | disposition home or self-care (01) ==
LOC: EMR 04:52
DX: I50.9 Heart failure, unspecified (principal); R60.0 Localized edema; I48.91 Unspecified atrial fibrillation; I13.0 Hypertensive heart and chronic kidney disease with heart failure and stage 1 through stage 4 chronic kidney disease, or unspecified chronic kidney disease; N18.9 Chronic kidney disease, unspecified; M10.9 Gout, unspecified
CPT/HCPCS: 96372; 99283; J1885

== ENCOUNTER 2019-04-15 02:30 | Emergency (ER) | payer MEDICARE, MEDICAID ==
[~2019-04-15] VITALS: Ht 177.8 cm; Wt 99.8 kg
--- NOTE | 2019-04-15 02:47 | NUR ---
ED Nurse Note: Walk-in patient with complaints of leg pain as a result of edema, recurrent problem. Will continue to monitor and service orders.
[2019-04-15 02:53] VITALS: BP 198/135
[2019-04-15] MEDS ORDERED: Ketorolac 30mg Inj IM ONE (03:00)
[2019-04-15] MEDS ORDERED: T.E.D. ANTI-EM1 EA10 MC (03:16)
[2019-04-15 03:18] VITALS: BP 198/135
--- NOTE | 2019-04-15 03:18 | NUR ---
ED Nurse Note: Patient tolerated injection well. Patient cleared for discharge by ERMD. Patient ID band removed. Patient verbalized understanding of discharge instructions. Patient depated with all belongings.
--- NOTE | 2019-04-15 03:47 | Emergency Room Report ---
History of Present Illness General Chief Complaint: Edema Source: Patient Present Illness HPI 68-year-old male presents ED for evaluation. Patient complaining of swelling to his legs for the last 3 days. States that he recently returned from [facility]. Patient states he lives back and forth between [place] and [facility]. History of CHF. History of gout. States he feels that his gout is flaring up. Pain is dull, 5 out of 10, nonradiating. Takes Lasix. Denies chest pain or shortness of breath. No other aggravating relieving factors. Denies any other associated symptoms Allergies: Coded Allergies: No Known Allergies (Unverified , 11/25/18) Patient History Past Medical History: CHF, other - gout Social History: Denies: smoking, alcohol use, drug use Immunizations: UTD Reviewed Nursing Documentation: PMH: Agreed; PSxH: Agreed Nursing Documentation-PMH Past Medical History: No History, Except For Hx Hypertension: Yes Hx Pacemaker: No Hx Asthma: No Hx COPD: No Hx Diabetes: No Hx Cancer: No Hx Gastrointestinal Problems: No Hx Dialysis: No - CKD Hx Neurological Problems: Yes - detatched retina on R eye Hx Seizures: No Review of Systems All Other Systems: negative except mentioned in HPI Physical Exam Vital Signs Date Time Temp Pulse Resp B/P (MAP) Pulse Ox O2 Delivery O2 Flow Rate FiO2 04/15/19 02:37 98.1 76 14 198/135 (156) 96 Room Air Sp02 EP Interpretation: reviewed, normal General Appearance: no apparent distress, alert, GCS 15, non-toxic Head: normocephalic Eyes: bilateral eye normal inspection, bilateral eye PERRL ENT: normal ENT inspection Neck: normal inspection Respiratory: chest non-tender, lungs clear, normal breath sounds, speaking full sentences Cardiovascular #1: regular rate, rhythm, no edema Gastrointestinal: normal inspection Rectal: deferred Genitourinary: no CVA tenderness Musculoskeletal: swelling - 1+ pitting edema b/l LEs Neurologic: alert, oriented x3, responsive, motor strength/tone normal, sensory intact, speech normal Psychiatric: normal inspection Skin: no rash Lymphatic: normal inspection Medical Decision Making Diagnostic Impression: Primary Impression: Chronic pain Qualified Codes: G89.29 - Other chronic pain Additional Impressions: Peripheral edema Chronic gout Qualified Codes: [id number].[id number] - Idiopathic chronic gout, multiple sites, without tophus (tophi) ER Course 68-year-old male presents ED complaining of bilateral leg swelling, pain. History of gout. History of CHF Differentialcellulitis, gout, CHF Placed on stretcher. After initial history physical exam reveals elderly male in no acute distress. Lungs clear. There is mild swelling to both lower extremities. None erythematous. Nonindurated. Nonpitting. Patient is well-known to [facility]. Has been here multiple times for similar presentation. Patient is declining labs. He is compliant with his Lasix. Is requesting Toradol. I ordered him a dose of Toradol but explained that patient needs to see his PMD for management of his gout. Patient states that he understands diagnosis - chornic pain, peripheral edema, chronic gout stable and discharge to home with Rx compression stockings.f/u with PMD. return to ED if symptoms recur/worsen. Last Vital Signs Date Time Temp Pulse Resp B/P (MAP) Pulse Ox O2 Delivery O2 Flow Rate FiO2 04/15/19 03:18 98.1 04/15/19 03:18 14 198/135 96 Room Air 04/15/19 02:53 76 Status: improved Disposition: HOME, SELF-CARE Condition: Stable Scripts Comp.stocking,Thigh,Short,Lrg (T.E.D. ANTI-EMBOLISM STOCKING) 1 Each Each EACH , #2 Prov: Mateo Galeano MD 04/15/19 Referrals: Mariano Alaniz MD Patient Instructions: Peripheral Edema Mateo Galeano MD Apr 15, 2019 03:47
== END 2019-04-15 03:18 | disposition home or self-care (01) ==
LOC: EMR 03:07
DX: R60.0 Localized edema (principal); G89.29 Other chronic pain; M1A.09X0 Idiopathic chronic gout, multiple sites, without tophus (tophi); I11.0 Hypertensive heart disease with heart failure; I50.9 Heart failure, unspecified
CPT/HCPCS: 96372; 99283; J1885

== ENCOUNTER 2019-04-26 20:15 | Emergency (ER) | payer MEDICARE, MEDICAID ==
[~2019-04-26] VITALS: Ht 177.8 cm; Wt 104.3 kg
--- NOTE | 2019-04-26 20:26 | NUR ---
ED Nurse Note pt walked in to ED C/O rashes to bilateral lower arms. noted with pin point rashes. pt stated the rash developed about 2 days ago. pt is alert x4. VSS
[2019-04-26 20:28] VITALS: BP 120/84
[2019-04-26] MEDS ORDERED: Ketorolac 30mg Inj IM ONE (20:45)
[2019-04-26] MEDS ORDERED: DiphenhydrAMINE 50mg/ml Inj IM ONE (20:45)
--- NOTE | 2019-04-26 21:02 | NUR ---
ED Nurse Note: all due meds given at this time. pt is in bed resting. No acute distress is noted,
[2019-04-26] MEDS ORDERED: PREDNISONE20 MG ORAL (21:13)
[2019-04-26] MEDS ORDERED: DIPHENHYDRAMINE25 M1 ORAL (21:13)
[2019-04-26 21:17] VITALS: BP 118/84
--- NOTE | 2019-04-26 21:17 | NUR ---
ER DISCHARGE NOTE: Patient is cleared to be discharged per ERMD, pt is aox4, on room air, with stable vital signs. pt was given dc instructions, pt was able to verbalize understanding, pt id band removed without complications. pt is able to ambulate with steady gait. pt took all belongings.
--- NOTE | 2019-05-01 22:00 | Emergency Room Report ---
History of Present Illness General Chief Complaint: Skin Rash/Abscess Source: Patient Present Illness HPI 68-year-old male presents ED for evaluation. Presenting with rash to both arms. Started a few days ago. States is very itchy. Denies any known food or drug allergies. Denies any tongue swelling or throat swelling. Denies pain. Denies fevers or chills. No other aggravating relieving factors. Denies any other associated symptoms Allergies: Coded Allergies: No Known Allergies (Unverified , 11/25/18) Patient History Past Medical History: HTN Past Surgical History: none Pertinent Family History: none Social History: Denies: smoking, alcohol use, drug use Immunizations: UTD Reviewed Nursing Documentation: PMH: Agreed; PSxH: Agreed Nursing Documentation-PMH Past Medical History: No Stated History Hx Cardiac Problems: Yes Hx Hypertension: Yes Hx Pacemaker: No Hx Asthma: No Hx COPD: No Hx Diabetes: No Hx Cancer: No Hx Gastrointestinal Problems: No Hx Dialysis: No - CKD Hx Cerebrovascular Accident: No Hx Seizures: No Review of Systems All Other Systems: negative except mentioned in HPI Physical Exam Sp02 EP Interpretation: reviewed, normal General Appearance: no apparent distress, alert, GCS 15, non-toxic Head: normocephalic, atraumatic Eyes: bilateral eye normal inspection, bilateral eye PERRL ENT: hearing grossly normal, normal pharynx, no angioedema, normal voice Neck: full range of motion, supple/symm/no masses Respiratory: chest non-tender, lungs clear, normal breath sounds, speaking full sentences Cardiovascular #1: regular rate, rhythm, no edema Cardiovascular #2: 2+ carotid (R), 2+ carotid (L), 2+ radial (R), 2+ radial (L) , 2+ dorsalis pedis (R), 2+ dorsalis pedis (L) Gastrointestinal: normal bowel sounds, non tender, soft, non-distended, no guarding, no rebound Rectal: deferred Genitourinary: normal inspection, no CVA tenderness Musculoskeletal: back normal, gait/station normal, normal range of motion, swelling - 1+ pitting edema b/l LEs Neurologic: alert, oriented x3, responsive, motor strength/tone normal, sensory intact, speech normal Psychiatric: judgement/insight normal, memory normal, mood/affect normal, no suicidal/homicidal ideation Reflexes: 3+ bicep (R), 3+ bicep (L), 3+ tricep (R), 3+ tricep (L), 3+ knee (R) , 3+ knee (L) Skin: rash - urticarial papular rash to bilateral arms Lymphatic: no adenopathy Medical Decision Making Diagnostic Impression: Primary Impression: Rash Additional Impression: Chronic leg pain Qualified Codes: M79.604 - Pain in right leg; M79.605 - Pain in left leg; G89.29 - Other chronic pain ER Course Hospital Course 68-year-old male presents to ED with rash to bilateral arms Differential diagnoses include: Cellulitis, dermatitis, insect bite, abscess Clinical course Patient placed on stretcher. After initial history, physical exam reveals an elderly male in no acute distress. On exam there is a papular rash to the arms bilaterally. Appears somewhat urticarial. None erythematous base. Appears like an allergic reaction. No signs of anaphylaxis. Given Benadryl shot here. Will discharge home with Benadryl and prednisone. Patient has history of chronic gout and chronic leg pain. Well-known to [facility] has been here multiple times for similar presentation. Given Toradol here. Will discharge to home. States he has a PMD Diagnosis - rash, chronic leg pain stable and discharged to home with prescription for prednisone, benedryl. Instructed to followup with PMD. Instructed return to ED if symptoms recur or worsen Status: improved Disposition: HOME, SELF-CARE Condition: Stable Scripts Prednisone* (PREDNISONE*) 20 Mg Tablet 40 MG ORAL DAILY for 5 Days, #10 TAB Prov: Mateo Galeano MD 04/26/19 Diphenhydramine Hcl* (DIPHENHYDRAMINE HCL*) 25 Mg Capsule 25 MG ORAL Q6H PRN for Itching for 5 Days, #30 CAP 0 Refills Prov: Mateo Galeano MD 04/26/19 Referrals: NOT CHOSEN IPA/,REFERRING (PCP) Mariano Alaniz MD Patient Instructions: Mateo Avina MD May 01, 2019 22:00
== END 2019-04-26 21:17 | disposition home or self-care (01) ==
LOC: EMR 20:47
DX: R21 Rash and other nonspecific skin eruption (principal); G89.29 Other chronic pain; M79.604 Pain in right leg; M79.605 Pain in left leg; I12.9 Hypertensive chronic kidney disease with stage 1 through stage 4 chronic kidney disease, or unspecified chronic kidney disease; N18.9 Chronic kidney disease, unspecified
CPT/HCPCS: 96372; 99283; J1200; J1885

== ENCOUNTER 2019-05-06 20:52 | Emergency (ER) | payer MEDICARE, MEDICAID ==
[~2019-05-06] VITALS: Ht 177.8 cm; Wt 104.3 kg
[~2019-05-06 20:52] MED LIST changes: +DIPHENHYDRAMINE25 M1 ORAL
[2019-05-06 21:10] VITALS: BP 134/80
--- NOTE | 2019-05-06 21:10 | NUR ---
ED Nurse Note: rECIEVED PT FROM HOME, HERE WITH C/O BILAT LEG PAIN WITH SWELLING DUE TO OUT OF MEDS, LASIX AND B/P MED, STATES HE WAS IN [place] AND NOW NEEDS REFILL, DENIES INJURY, CHEST PAIN, SOB, OR ANY OTHER COMPLAINTS OR DISCOMFORTS.
--- NOTE | 2019-05-06 21:11 | Emergency Room Report ---
History of Present Illness General Chief Complaint: Medication Refill Source: Patient Present Illness HPI This is a 68-year-old male well-known to this ER and other ERs around the state. He has a history of hypertension, CHF and atrial fibrillation. He was just admitted and discharged from [facility] for rapid A. fib. He said that they switch his medication around. They took him off of his clonidine and switch him to losartan. He said is not tolerating that very well. He has been on them for many years. He has no issue with it. He is also out of his Lasix. He has been out of his clonidine Lasix for 1 day. No nausea no vomiting. No fever chills. He has some chronic lower externally pain. He says edema is is coming back because he is out of Lasix for 1 day. No shortness of breath. No chest pain. He does not want any laboratory data. Allergies: Coded Allergies: No Known Allergies (Unverified , 11/25/18) Patient History Past Medical History: see triage record, old chart reviewed, HTN, AFib Past Surgical History: other Pertinent Family History: none Social History: Denies: smoking Immunizations: other Reviewed Nursing Documentation: PMH: Agreed; PSxH: Agreed Nursing Documentation-PMH Hx Cardiac Problems: Yes Hx Hypertension: Yes Hx Pacemaker: No Hx Asthma: No Hx COPD: No Hx Diabetes: No Hx Cancer: No Hx Gastrointestinal Problems: No Hx Dialysis: No - CKD Hx Cerebrovascular Accident: No Hx Seizures: No Review of Systems Eye: Denies: eye pain, blurred vision ENT: Denies: ear pain, nose congestion, throat swelling Respiratory: Denies: cough, shortness of breath Cardiovascular: Denies: chest pain, palpitations Gastrointestinal: Denies: abdominal pain, diarrhea, nausea, vomiting Musculoskeletal: Denies: back pain, joint pain Skin: Denies: rash Neurological: Denies: headache, numbness Endocrine: Denies: increased thirst, increased urine Hematologic/Lymphatic: Denies: easy bruising All Other Systems: negative except mentioned in HPI Physical Exam Vital Signs Date Time Temp Pulse Resp B/P (MAP) Pulse Ox O2 Delivery O2 Flow Rate FiO2 05/06/19 20:55 98.6 70 16 134/80 (98) 97 Room Air Vitals unremarkable Sp02 EP Interpretation: reviewed, normal General Appearance: well appearing, no apparent distress, alert Head: normocephalic, atraumatic Eyes: bilateral eye PERRL, bilateral eye EOMI ENT: hearing grossly normal, normal pharynx Neck: full range of motion, supple, no meningismus Respiratory: chest non-tender, lungs clear, normal breath sounds Cardiovascular #1: regular rate, rhythm, no murmur Gastrointestinal: normal bowel sounds, non tender, no mass, no organomegaly, no bruit, non-distended Musculoskeletal: back normal, gait/station normal, normal range of motion, swelling - 1+ pitting edema Psychiatric: mood/affect normal Medical Decision Making Diagnostic Impression: Primary Impression: Encounter for medication refill Additional Impressions: CHF (congestive heart failure) Qualified Codes: I50.42 - Chronic combined systolic (congestive) and diastolic (congestive) heart failure Peripheral edema ER Course Patient here with refill of his medication and chronic pedal edema. I will refill his Lasix and clonidine. He said he will see Dr. Alaniz tomorrow. He does not want any laboratory data. Patient is otherwise stable. No respiratory distress. No rales on exam. Last Vital Signs Date Time Temp Pulse Resp B/P (MAP) Pulse Ox O2 Delivery O2 Flow Rate FiO2 05/06/19 20:55 98.6 70 16 134/80 (98) 97 Room Air Status: improved Disposition: HOME, SELF-CARE Condition: Stable Scripts Clonidine Hcl* (CATAPRES*) 0.2 Mg Tablet 0.2 MG ORAL Q8HR, #90 TAB Prov: Rajinder Coyle MD 05/06/19 Furosemide* (LASIX*) 40 Mg Tablet 40 MG ORAL TWICE A DAY, #60 TAB 0 Refills Prov: Rajinder Coyle MD 05/06/19 Patient Instructions: Medicine Refill at the Emergency Department Additional Instructions: Follow-up with your doctor tomorrow for recheck. Return if worse. Rajinder Coyle MD May 06, 2019 21:11
[2019-05-06] MEDS ORDERED: CATAPRES0.2 MG ORAL (21:14)
[2019-05-06] MEDS ORDERED: FUROSEMIDE40 MG ORAL (21:14)
[2019-05-06] MEDS ORDERED: cloNIDine 0.2mg Tab ORAL ONE (21:15)
[2019-05-06] MEDS ORDERED: Furosemide 40mg tab ORAL ONE (21:15)
[2019-05-06] MEDS ORDERED: Ketorolac 30mg Inj IM ONE (21:15)
[2019-05-06 21:30] VITALS: BP 134/80
== END 2019-05-06 21:30 | disposition home or self-care (01) ==
LOC: EMR 21:03
DX: R60.0 Localized edema (principal); I50.42 Chronic combined systolic (congestive) and diastolic (congestive) heart failure; Z76.0 Encounter for issue of repeat prescription; I13.0 Hypertensive heart and chronic kidney disease with heart failure and stage 1 through stage 4 chronic kidney disease, or unspecified chronic kidney disease; N18.9 Chronic kidney disease, unspecified; I48.91 Unspecified atrial fibrillation
CPT/HCPCS: 96372; 99283; J1885

== ENCOUNTER 2019-05-11 09:21 | Emergency (ER) | payer MEDICARE, MEDICAID ==
[~2019-05-11] VITALS: Ht 177.8 cm; Wt 104.3 kg
[2019-05-11 09:51] VITALS: BP 122/49
--- NOTE | 2019-05-11 09:54 | NUR ---
ED Nurse Note: pt walked in from home c/o gout flare up pian in both knees. Pt awaiting ermd eval.
--- NOTE | 2019-05-11 10:14 | Emergency Room Report ---
History of Present Illness General Chief Complaint: Pain Source: Patient, Medical Record Present Illness HPI The patient with a history of gout and right heart failure comes in for pain in his calf and thighs. He was recently hospitalized at [facility] for 4 days. He is taking Lasix at this time. He says he does not have any medication for pain at home. He is asking for pain medication at this time. He requesting a shot in particular. No dyspnea. He denies fevers or chills. He states he plans to go to his doctor's office. He also states that if he went to [facility] that he would be admitted again to the hospital. He says he is not going to [facility] because there are things he has to take care of today. He rates the pain 10/10 and constant. This is mainly in his left knee. No sore throat, chest pain, palpitations, nausea, vomiting, diarrhea, dysuria, abdominal pain, rashes, depression, anxiety, visual changes, dizziness, headache. He was seen here May 06. He received a refill of clonidine and Lasix at that time. This is the history: This is a 68-year-old male well-known to this ER and other ERs around the [facility]. He has a history of hypertension, CHF and atrial fibrillation. He was just admitted and discharged from [facility] for rapid A. fib. He said that they switch his medication around. They took him off of his clonidine and switch him to losartan. He said is not tolerating that very well. He has been on them for many years. He has no issue with it. He is also out of his Lasix. He has been out of his clonidine Lasix for 1 day. No nausea no vomiting. No fever chills. He has some chronic lower externally pain. He says edema is is coming back because he is out of Lasix for 1 day. No shortness of breath. No chest pain. He does not want any laboratory data. Allergies: Coded Allergies: No Known Allergies (Unverified , 11/25/18) Patient History Past Medical History: see triage record, old chart reviewed Social History Narrative Various jobs Reviewed Nursing Documentation: PMH: Agreed; PSxH: Agreed Nursing Documentation-PM Past Medical History: No History, Except For Hx Cardiac Problems: Yes Hx Hypertension: Yes Hx Pacemaker: No Hx Asthma: No Hx COPD: No Hx Diabetes: No Hx Cancer: No Hx Gastrointestinal Problems: No Hx Dialysis: No - CKD Hx Cerebrovascular Accident: No Hx Seizures: No Review of Systems All Other Systems: negative except mentioned in HPI Physical Exam Vital Signs Date Time Temp Pulse Resp B/P (MAP) Pulse Ox O2 Delivery O2 Flow Rate FiO2 05/11/19 09:29 98.4 96 18 122/49 (73) 98 Room Air Sp02 EP Interpretation: reviewed, normal General Appearance: well appearing, non-toxic, other - Sleeping on the gurney Head: normocephalic Eyes: bilateral eye normal inspection, bilateral eye PERRL ENT: moist mucus membranes Neck: supple Respiratory: lungs clear, normal breath sounds Cardiovascular #1: regular rate, rhythm, edema - Bilateral lower extremities Gastrointestinal: normal inspection Musculoskeletal: gait/station normal, other - Refuses to take off pants Neurologic: oriented x3, grossly normal Psychiatric: mood/affect normal Skin: other - Pieces to take off pants Medical Decision Making Diagnostic Impression: Primary Impression: Chronic leg pain Qualified Codes: M79.604 - Pain in right leg; M79.605 - Pain in left leg; G89.29 - Other chronic pain Additional Impression: Peripheral edema ER Course Patient with a history of gout and right heart failure presents requesting pain shot. He refuses to take off his pants and stockings for exam. Says he only wants a Toradol shot. Discussed that I needed to examine him. He again requested the shot at this time. He says he will be following up with his doctor. I discussed the risk of his refusing to comply with examination. Small dose of Toradol administered. Pain improved. Last Vital Signs Date Time Temp Pulse Resp B/P (MAP) Pulse Ox O2 Delivery O2 Flow Rate FiO2 05/11/19 11:36 98.1 87 16 128/65 99 Room Air Status: improved Disposition: HOME, SELF-CARE Condition: Improved Referrals: Mariano Alaniz MD (PCP) Tim Gil MD May 11, 2019 10:14
[2019-05-11] MEDS ORDERED: Ketorolac 30mg Inj IM ONE (10:45)
[2019-05-11 11:36] VITALS: BP 128/65
== END 2019-05-11 11:37 | disposition home or self-care (01) ==
LOC: EMR 10:04
DX: M79.604 Pain in right leg (principal); M79.605 Pain in left leg; G89.29 Other chronic pain; R60.9 Edema, unspecified; I10 Essential (primary) hypertension; M10.9 Gout, unspecified; Z86.79 Personal history of other diseases of the circulatory system
CPT/HCPCS: 96372; 99283; J1885

== ENCOUNTER 2019-05-13 16:04 | Emergency (ER) | payer MEDICARE, MEDICAID ==
[~2019-05-13] VITALS: Ht 177.8 cm; Wt 104.3 kg
[2019-05-13] MEDS ORDERED: Ketorolac 30mg Inj IM ONE (16:30)
[2019-05-13 16:32] VITALS: BP 113/79
--- NOTE | 2019-05-13 16:36 | NUR ---
ED Nurse Note: patient walked in to ER from home due to BLE pain and edema x2 days. Patient alert and oriented x4 and ambulatory. skin clean and intact. Calm and cooperative. No acute distress noted at this time. pitting edema +1 on BLE noted. lungs sound clear.
[2019-05-13] MEDS ORDERED: Furosemide 40mg tab ORAL ONE (16:45)
[2019-05-13] MEDS ORDERED: FUROSEMIDE40 MG ORAL (16:48)
[2019-05-13 17:24] VITALS: BP 126/87
--- NOTE | 2019-05-13 18:08 | Emergency Room Report ---
History of Present Illness General Chief Complaint: Pain Source: Patient Present Illness HPI 68-year-old male complaining of chronic, persistent bilateral lower extremity pain and swelling. Patient requesting injection. Denies fall or injury. Patient states that ran out of his Lasix today. Patient denies fever, chills, shortness of breath, palpitations, chest pain. PCP: Dr. Alaniz Allergies: Coded Allergies: No Known Allergies (Unverified , 11/25/18) Patient History Past Medical History: HTN, CHF, AFib, other - gout Social History: Denies: smoking, alcohol use, drug use Nursing Documentation-H Hx Cardiac Problems: Yes Hx Hypertension: Yes Hx Pacemaker: No Hx Asthma: No Hx COPD: No Hx Diabetes: No Hx Cancer: No Hx Gastrointestinal Problems: No Hx Dialysis: No - CKD Hx Cerebrovascular Accident: No Hx Seizures: No Review of Systems All Other Systems: negative except mentioned in HPI Physical Exam Vital Signs Date Time Temp Pulse Resp B/P (MAP) Pulse Ox O2 Delivery O2 Flow Rate FiO2 05/13/19 16:12 98.1 66 19 113/79 (90) 99 Room Air Sp02 EP Interpretation: reviewed, normal Respiratory: chest non-tender, lungs clear, normal breath sounds, speaking full sentences Cardiovascular #1: irregularly irregular Musculoskeletal: back normal, gait/station normal, normal range of motion, non- tender, other - bilateral shins 1+ edema Neurologic: alert, oriented x3, responsive, motor strength/tone normal, sensory intact, speech normal Skin: no rash, normal color, warm/dry Medical Decision Making PA Attestation This patient was seen under the direct supervision of Dr. Galeano, who directed all aspects of care and diagnostic interpretation. Diagnostic Impression: Primary Impression: Medication refill Additional Impressions: Chronic pain Peripheral edema ER Course ED course HPI: 68-year-old male complaining of chronic, persistent bilateral lower extremity pain and swelling. Patient requesting injection. Denies fall or injury. Patient states that ran out of his Lasix today. Patient denies fever, chills, shortness of breath, palpitations, chest pain. PCP: Dr. Alaniz HPI & PE consistent with: Chronic pain, peripheral edema Orders/ Interventions: Lungs clear to auscultation bilaterally no rales. Patient denies chest pain or shortness of breath. Do not suspect acute CHF exacerbation. Patient medicated with Toradol 30 mg IM and given 1 dose of Lasix 40 mg p.o. Disposition: Compression stockings. Elevation. Patient discharge with prescription for Lasix 40 mg p.o. (5 day supply). At this time pt. is stable for d/c to home. Will provide printed patient care instructions, and any necessary prescriptions. Care plan and follow up instructions have been discussed with the patient prior to discharge. Please note that this Emergency Department Report was dictated using [employer] builder technology software, occasionally this can lead to erroneous entry secondary to interpretation by the dictation equipment. Last Vital Signs Date Time Temp Pulse Resp B/P (MAP) Pulse Ox O2 Delivery O2 Flow Rate FiO2 05/13/19 17:24 97.8 72 19 126/87 99 Room Air Disposition: HOME, SELF-CARE Condition: Stable Scripts Furosemide* (LASIX*) 40 Mg Tablet 40 MG ORAL TWICE A DAY, #10 TAB 0 Refills Prov: Lexa Crabtree 05/13/19 Referrals: NOT CHOSEN IPA/MD,REFERRING (PCP) Patient Instructions: Peripheral Edema Additional Instructions: Followup with PCP in 2-3 days or return to ED if worsening symptoms, new symptoms, or sudden change in condition. Lexa Crabtree May 13, 2019 18:08
== END 2019-05-13 17:24 | disposition home or self-care (01) ==
LOC: EMR 16:25
DX: G89.29 Other chronic pain (principal); R60.9 Edema, unspecified; I11.0 Hypertensive heart disease with heart failure; I50.9 Heart failure, unspecified
CPT/HCPCS: 96372; 99283; J1885

== ENCOUNTER 2019-05-17 21:51 | Emergency (ER) | payer MEDICARE, MEDICAID ==
[~2019-05-17] VITALS: Ht 177.8 cm; Wt 104.3 kg
[2019-05-17 21:57] VITALS: BP 132/94
--- NOTE | 2019-05-17 22:05 | NUR ---
ED Nurse Note: patient walked into ED from home c/o bilateral knee swelling 2 hours prior to arrival to ED. patient reports he was hospitalized at [facility] for 4 days and was just discharged today. patient reports bilateral knee pain 10/10. patient is alert awake x4 ambulatory without assistance.
[2019-05-17] MEDS ORDERED: Furosemide 40mg tab ORAL ONE (22:30)
[2019-05-17] MEDS ORDERED: Ketorolac 30mg Inj IM ONE (22:30)
--- NOTE | 2019-05-17 22:34 | Emergency Room Report ---
History of Present Illness General Chief Complaint: Pain Source: Patient Present Illness HPI This is a 68-year-old male well-known to this ER. He presents with chief complaint of swelling to his lower extremity. Onset today. He just got discharged from [facility]. 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 Did not take it today. He complained of swelling to his lower extremity. Also with generalized pain to that area. No shortness of breath. No chest pain. No fever chills. Nothing made better. Nothing made it worse. 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 Hx Hypertension: Yes Hx Pacemaker: No Hx Asthma: No Hx COPD: No Hx Diabetes: No Hx Cancer: No Hx Gastrointestinal Problems: No Hx Dialysis: No - CKD Hx Cerebrovascular Accident: No Hx Seizures: No Review of Systems Eye: Denies: eye pain, blurred vision ENT: Denies: ear pain, nose congestion, throat swelling Respiratory: Denies: cough, shortness of breath Cardiovascular: Denies: chest pain, palpitations Gastrointestinal: Denies: abdominal pain, diarrhea, nausea, vomiting Musculoskeletal: Denies: back pain, joint pain Skin: Denies: rash Neurological: Denies: headache, numbness Endocrine: Denies: increased thirst, increased urine Hematologic/Lymphatic: Denies: easy bruising All Other Systems: negative except mentioned in HPI Physical Exam Vital Signs Date Time Temp Pulse Resp B/P (MAP) Pulse Ox O2 Delivery O2 Flow Rate FiO2 05/17/19 21:57 98.4 84 18 132/94 98 Room Air Vitals normal Sp02 EP Interpretation: reviewed, normal General Appearance: well appearing, no apparent distress, alert Head: normocephalic, atraumatic Eyes: bilateral eye PERRL, bilateral eye EOMI ENT: hearing grossly normal, normal pharynx Neck: full range of motion, supple, no meningismus Respiratory: chest non-tender, lungs clear, normal breath sounds Cardiovascular #1: regular rate, rhythm, no murmur Gastrointestinal: normal bowel sounds, non tender, no mass, no organomegaly, no bruit, non-distended Musculoskeletal: back normal, gait/station normal, normal range of motion, swelling - 1+ edema to lower extremity Psychiatric: mood/affect normal Medical Decision Making Diagnostic Impression: Primary Impression: Chronic leg pain Qualified Codes: M79.604 - Pain in right leg; M79.605 - Pain in left leg; G89.29 - Other chronic pain Additional Impression: Peripheral edema ER Course Patient presents with lower extremity edema. Lungs are clear. He is not in respiratory distress. Not in A. fib. He said that he can get his Lasix tomorrow. A dose was given here. Last Vital Signs Date Time Temp Pulse Resp B/P (MAP) Pulse Ox O2 Delivery O2 Flow Rate FiO2 05/17/19 21:57 98.4 83 18 132/94 (107) 98 Room Air Status: improved Disposition: HOME, SELF-CARE Condition: Stable Additional Instructions: Take your Lasix and blood pressure medication. Follow-up with Dr. Alaniz in 2-3 days. Return if worse. Rajinder Coyle MD May 17, 2019 22:34
[2019-05-17 22:36] VITALS: BP 132/94
== END 2019-05-17 22:39 | disposition home or self-care (01) ==
LOC: EMR 22:14
DX: R60.0 Localized edema (principal); M79.604 Pain in right leg; M79.605 Pain in left leg; G89.29 Other chronic pain; I11.0 Hypertensive heart disease with heart failure; I50.9 Heart failure, unspecified
CPT/HCPCS: 96372; 99283; J1885

== ENCOUNTER 2019-05-20 12:10 | Emergency (ER) | payer MEDICARE, MEDICAID ==
[~2019-05-20] VITALS: Ht 175.3 cm; Wt 79.4 kg
[2019-05-20] MEDS ORDERED: FUROSEMIDE40 MG ORAL (12:29)
[2019-05-20 12:49] VITALS: BP 125/89
--- NOTE | 2019-05-20 12:51 | Emergency Room Report ---
History of Present Illness General Chief Complaint: Pain Source: Patient, Medical Record Present Illness HPI Patient presents with request of Toradol injection and Lasix reports that he is been having increased swelling over the past several days Reports that his primary physician was not able to see him over the weekend And presents to the ER denies any chest pain or shortness of breath Denies any vomiting or diarrhea Reports that ' I am not here for pain' Denies any exertional dyspnea Also reports that he is out of his diuretic medication Allergies: Coded Allergies: No Known Allergies (Unverified , 11/25/18) Patient History Past Medical History: see triage record Reviewed Nursing Documentation: PMH: Agreed; PSxH: Agreed Nursing Documentation-PMH Hx Cardiac Problems: Yes - AFIB 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 Hx Hypertension: Yes Hx Pacemaker: No Hx Asthma: No Hx COPD: No Hx Diabetes: No Hx Cancer: No Hx Gastrointestinal Problems: No Hx Dialysis: No - CKD Hx Cerebrovascular Accident: No Hx Seizures: No Review of Systems All Other Systems: negative except mentioned in HPI Physical Exam Vital Signs Date Time Temp Pulse Resp B/P (MAP) Pulse Ox O2 Delivery O2 Flow Rate FiO2 05/20/19 12:16 97.3 84 18 125/89 (101) 100 Room Air Sp02 EP Interpretation: reviewed, normal General Appearance: well appearing, no apparent distress Head: normocephalic, atraumatic Eyes: bilateral eye PERRL, bilateral eye EOMI ENT: hearing grossly normal, normal pharynx, TMs + canals normal, uvula midline Neck: full range of motion, supple, no meningismus, no bony tend Respiratory: lungs clear, normal breath sounds, no rhonchi, no respiratory distress, no retraction, no accessory muscle use Cardiovascular #1: normal peripheral pulses, regular rate, rhythm, no edema, no gallop, no JVD, no murmur Gastrointestinal: normal bowel sounds, non tender, soft, no mass, no organomegaly, non-distended, no guarding, no hernia, no pulsatile mass, no rebound Genitourinary: no CVA tenderness Musculoskeletal: normal inspection Neurologic: oriented x3, responsive, admissions director III-XII nml as tested, motor strength/ tone normal, sensory intact Psychiatric: mood/affect normal Skin: other - Dependent edema Lymphatic: normal inspection, no adenopathy Medical Decision Making Diagnostic Impression: Primary Impression: edema ER Course Given the history and presentation multiple differentials are in consideration Patient lung sounds are clear Respirations are normal and saturations appropriate Patient requesting Toradol injection I have had several discussions with the patient regarding my concern with this medication and the need for multiple emergency room visits for it Patient essentially diversely conversation to his physician not being available and this is the same discussion on multiple previous visits Patient also requesting Lasix It is concerning that with these ER visits and his primary care follow-up he is out of his medication At the time of disposition, patient is not happy regarding not receiving Toradol injection And further discussion appears to be futile Patient is dispositioned home to have close outpatient follow-up after medical evaluation Last Vital Signs Date Time Temp Pulse Resp B/P (MAP) Pulse Ox O2 Delivery O2 Flow Rate FiO2 05/20/19 12:16 97.3 84 18 125/89 (101) 100 Room Air Status: unchanged Disposition: HOME, SELF-CARE Condition: Stable Scripts Furosemide* (LASIX*) 40 Mg Tablet 40 MG ORAL DAILY for 20 Days, #20 TAB Prov: Christie Celeste DO 05/20/19 Referrals: Mariano Alaniz MD Patient Instructions: Edema, [id number] Additional Instructions: Patient is provided with the discharge instructions notified to follow up with primary doctor in the next 2-3 days otherwise return to the er with any worsening symptoms. Please note that this report is being documented using [employer] technology. This can lead to erroneous entry secondary to incorrect interpretation by the dictating instrument. Christie Celeste DO May 20, 2019 12:51
[2019-05-21] MEDS ORDERED: FUROSEMIDE40 MG ORAL (12:34)
== END 2019-05-20 12:50 | disposition home or self-care (01) ==
LOC: EMR 12:48
DX: R60.0 Localized edema (principal); I10 Essential (primary) hypertension
CPT/HCPCS: 99282

== ENCOUNTER 2019-05-21 11:47 | Emergency (ER) | payer MEDICARE, MEDICAID ==
[~2019-05-21] VITALS: Ht 177.8 cm; Wt 104.3 kg
[2019-05-21 12:00] VITALS: BP 128/95
--- NOTE | 2019-05-21 12:00 | NUR ---
ED Nurse Note: PT AMBULATED TO ED C/O BILATERAL LEG PAIN. PT HAS HX OF GOUT. PT VISITED [facility] YESTERDAY FOR SAME REASON.
[2019-05-21] MEDS ORDERED: Ketorolac 30mg Inj IM ONE (12:15)
[2019-05-21] MEDS ORDERED: Furosemide 40mg tab ORAL ONE (12:15)
--- NOTE | 2019-05-21 12:33 | Emergency Room Report ---
History of Present Illness General Chief Complaint: Edema Source: Patient Present Illness HPI 68-year-old male with history of congestive heart failure, atrial fibrillation, here requesting a refill on his Lasix. Patient reports that he is a and he has been getting his Lasix 40 mg daily for a long time however due to insurance changes the pharmacy will not release his recent prescription of Lasix until 28 April. Patient reports that he took the last dose of Lasix yesterday and has been experiencing some edema in bilateral legs today also complains of 7 out of 10 pain both feet. Patient reports that he establishing a new primary care and he often gets seen by Dr. alaniz at either [facility] or other clinics. Denies urinary symptoms, abdominal pain, nausea vomiting, headache and dizziness. Patient has stable vital signs and reports that has enough refill of the rest of his medication. I spoke to the nursing sort operations supervisor and asked for possible release of a 10-day supply of Lasix in the emergency room however due to [facility] pharmacy being closed at this time due to we can schedule we were unable to accommodate that. Patient was given a dose of Lasix here and I wrote for the generic of Lasix for 10 days. 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 Hx Hypertension: Yes Hx Pacemaker: No Hx Asthma: No Hx COPD: No Hx Diabetes: No Hx Cancer: No Hx Gastrointestinal Problems: No Hx Dialysis: No - CKD Hx Cerebrovascular Accident: No Hx Seizures: No Review of Systems All Other Systems: negative except mentioned in HPI Physical Exam Vital Signs Date Time Temp Pulse Resp B/P (MAP) Pulse Ox O2 Delivery O2 Flow Rate FiO2 05/21/19 11:54 97.7 91 19 128/95 (106) 96 Room Air Sp02 EP Interpretation: reviewed, normal General Appearance: no apparent distress, alert, GCS 15, non-toxic Head: normocephalic, atraumatic Eyes: bilateral eye normal inspection, bilateral eye PERRL ENT: hearing grossly normal, normal pharynx, no angioedema, normal voice Neck: full range of motion, supple, supple/symm/no masses Respiratory: chest non-tender, lungs clear, normal breath sounds, no rhonchi, no respiratory distress, no retraction, no wheezing, speaking full sentences Cardiovascular #1: regular rate, rhythm, no edema, no murmur, normal capillary refill Cardiovascular #2: 2+ dorsalis pedis (R), 2+ dorsalis pedis (L) Gastrointestinal: normal bowel sounds, non tender, soft, non-distended, no guarding, no rebound Rectal: deferred Genitourinary: no CVA tenderness Musculoskeletal: digits/nails normal, gait/station normal, non-tender, no calf tenderness, swelling - Bilateral lower extremities Neurologic: alert, oriented x3, responsive, excavator operator III-XII nml as tested Psychiatric: judgement/insight normal, memory normal, mood/affect normal, no suicidal/homicidal ideation Skin: no rash Lymphatic: no adenopathy Medical Decision Making PA Attestation All diagnoses and treatment plans were reviewed and discussed with my supervising physician Dr. Gil Diagnostic Impression: Primary Impression: Edema ER Course 68-year-old male with history of congestive heart failure, atrial fibrillation, here requesting a refill on his Lasix. Patient reports that he is a and he has been getting his Lasix 40 mg daily for a long time however due to insurance changes the pharmacy will not release his recent prescription of Lasix until 28 April. Patient reports that he took the last dose of Lasix yesterday and has been experiencing some edema in bilateral legs today also complains of 7 out of 10 pain both feet. Patient reports that he establishing a new primary care and he often gets seen by Dr. alaniz at either [facility] or other clinics. Denies urinary symptoms, abdominal pain, nausea vomiting, headache and dizziness. Patient has stable vital signs and reports that has enough refill of the rest of his medication. I spoke to the nursing sort operations supervisor and asked for possible release of a 10-day supply of Lasix in the emergency room however due to [facility] pharmacy being closed at this time due to we can schedule we were unable to accommodate that. Patient was given a dose of Lasix here and I wrote for the generic of Lasix for 10 days. Ddx considered but are not limited to : Chronic leg edema secondary to CHF, cellulitis, DVT, superficial infection, abscess Vital signs: are WNL, pt. is afebrile H&PE are most consistent with: Chronic bilateral leg edema secondary to CHF ORDERS: Furosemide ED INTERVENTIONS: Toradol as patient requested for pain, furosemide DISCHARGE: At this time pt. is stable for d/c to home. Will provide printed patient care instructions, and any necessary prescriptions. Care plan and follow up instructions have been discussed with the patient prior to discharge. Patient has Dr. Alaniz's permission for follow-up as well as in the process of establishing a new [facility] physician. I told him to return to emergency room if worsening symptoms. Last Vital Signs Date Time Temp Pulse Resp B/P (MAP) Pulse Ox O2 Delivery O2 Flow Rate FiO2 05/21/19 12:00 91 19 Room Air 05/21/19 12:00 97.7 128/95 96 Disposition: HOME, SELF-CARE Condition: Stable Scripts Furosemide* (LASIX*) 40 Mg Tablet 40 MG ORAL DAILY for 10 Days, #20 TAB Prov: Bailee Rizvi 05/21/19 Patient Instructions: Edema, [id number] Additional Instructions: Take medication as directed, follow-up with your primary care provider, if worsening symptoms return to the emergency room. Bailee Rizvi May 21, 2019 12:33
[2019-05-21] MEDS ORDERED: FUROSEMIDE40 MG ORAL (12:34)
[2019-05-21 12:53] VITALS: BP 125/92
--- NOTE | 2019-05-21 12:54 | NUR ---
ER DISCHARGE NOTE: Patient is cleared to be discharged per ERMD, pt is aox4, on room air, with stable vital signs. pt was given dc and prescription instructions, pt was able to verbalize understanding, pt id band removed pt is able to ambulate with steady gait. pt took all belongings.
== END 2019-05-21 12:54 | disposition home or self-care (01) ==
LOC: EMR 12:10
DX: R60.0 Localized edema (principal); I11.0 Hypertensive heart disease with heart failure; I50.9 Heart failure, unspecified
CPT/HCPCS: 96372; 99283; J1885

== ENCOUNTER 2019-05-25 11:32 | Emergency (ER) | payer MEDICARE, MEDICAID ==
[~2019-05-25] VITALS: Ht 177.8 cm; Wt 99.8 kg
[2019-05-25 11:53] VITALS: BP 142/82
--- NOTE | 2019-05-25 12:00 | NUR ---
ED Nurse Note: Patient walked into ED from home c/o cold symptoms, nasal congestions for 2 days. patient is alert awake x4 ambulatory breathing unlabored and even, speaking in full sentences. patient provided with tissue.
--- NOTE | 2019-05-25 13:10 | Emergency Room Report ---
History of Present Illness General Chief Complaint: Upper Respiratory Illness Source: Patient Present Illness HPI 68-year-old male presents to the emergency department complaining of 10 out of 10 in severity rhinorrhea with nasal congestion x2 days. Patient denies fevers , cough, sore throat, neck pain/stiffness. Patient reports he is blowing his nose multiple times per minutes without relief. Patient states he has not tried any medications at home. Patient denies any other symptoms at this time and denies having any other aggravating or relieving factors. Patient states that he is able to breathe out of his nose with some difficulty. Denies purulent discharge or bleeding. 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 Hx Hypertension: Yes Hx Pacemaker: No Hx Asthma: No Hx COPD: No Hx Diabetes: No Hx Cancer: No Hx Gastrointestinal Problems: No Hx Dialysis: No - CKD Hx Cerebrovascular Accident: No Hx Seizures: No Review of Systems All Other Systems: negative except mentioned in HPI Physical Exam Vital Signs Date Time Temp Pulse Resp B/P (MAP) Pulse Ox O2 Delivery O2 Flow Rate FiO2 05/25/19 11:53 97.7 76 20 142/82 98 Room Air Sp02 EP Interpretation: reviewed, normal General Appearance: no apparent distress, alert, GCS 15, non-toxic Head: normocephalic, atraumatic Eyes: bilateral eye normal inspection, bilateral eye PERRL ENT: hearing grossly normal, normal pharynx, normal voice, TMs + canals normal , moist mucus membranes, nasal congestion Neck: full range of motion, no meningismus Respiratory: chest non-tender, lungs clear, normal breath sounds, speaking full sentences Cardiovascular #1: regular rate, rhythm Musculoskeletal: gait/station normal, normal range of motion, non-tender Neurologic: alert, oriented x3, responsive, motor strength/tone normal, sensory intact, speech normal, grossly normal Psychiatric: judgement/insight normal Skin: no rash Lymphatic: no adenopathy Medical Decision Making PA Attestation Dr. Castillo is my supervising Physician whom patient management has been discussed with. Diagnostic Impression: Primary Impression: Nasal congestion with rhinorrhea ER Course 68-year-old male presents to the emergency department complaining of 10 out of 10 in severity rhinorrhea with nasal congestion x2 days. Patient denies fevers , cough, sore throat, neck pain/stiffness. Patient reports he is blowing his nose multiple times per minutes without relief. Patient states he has not tried any medications at home. Patient denies any other symptoms at this time and denies having any other aggravating or relieving factors. Patient states that he is able to breathe out of his nose with some difficulty. Denies purulent discharge or bleeding. Ddx considered but are not limited to URI, pneumonia, PE, strep pharyngitis, meningitis, sinusitis, allergic rhinitis, viral etiology just name a few Vital signs: Pt. is afebrile, the remaining VS are WNL H&PE are most consistent with URI- no meningeal signs, oropharynx is not involved, no evidence of bacterial infection at this time. ORDERS: none required at this time, the diagnosis is clinical ED INTERVENTIONS: None required at this time. -I do not identify an emergent condition at this time. With current presentation , pt. is stable for close outpatient follow up and conservative treatment. D/ w pt. to return promptly to ED with worsening or new symptoms.- Pt. verbalizes' understanding and agreement with proposed treatment plan. --PT. EDUCATION: Discussed antibiotic resistance with inappropriate prescribing of antibiotics for viral illnesses. Discussed signs and symptoms to indicate viral illness versus bacterial illness. DISCHARGE: At this time pt. is stable for d/c to home. Will provide printed patient care instructions, and any necessary prescriptions. Care plan and follow up instructions have been discussed with the patient prior to discharge. Last Vital Signs Date Time Temp Pulse Resp B/P (MAP) Pulse Ox O2 Delivery O2 Flow Rate FiO2 05/25/19 11:53 97.7 86 20 142/82 (102) 98 Room Air Disposition: HOME, SELF-CARE Condition: Stable Scripts Pseudoephedrine Hcl* (NEXAFED*) 30 Mg Tablet 30 MG ORAL Q6H PRN for congestion, #6 TAB Prov: Amy Salmon 05/25/19 Diphenhydramine Hcl (BENADRYL ALLERGY) 25 Mg Tablet 25 MG PO Q6HR, #20 TAB Prov: Amy Salmon 05/25/19 Referrals: Mariano Alaniz MD (PCP) Patient Instructions: Upper Respiratory Infection, Adult Additional Instructions: Take medications as directed. Follow up with a Primary Care Provider in 3-5 days, even if your symptoms have resolved. Return sooner to ED if new symptoms occur, or current symptoms become worse. Do not drink alcohol, drive, or operate heavy machinery while taking Benadryl as this may cause drowsiness. - Please note that this Emergency Department Report was dictated using [employer] leather department supervisor technology software, occasionally this can lead to erroneous entry secondary to interpretation by the dictation equipment. Amy Salmon May 25, 2019 13:10
[2019-05-25] MEDS ORDERED: NEXAFED30 MG ORAL (13:11)
[2019-05-25] MEDS ORDERED: BENADRYL ALLERG25 M1 PO (13:11)
[2019-05-25 13:53] VITALS: BP 142/82
--- NOTE | 2019-05-25 13:54 | NUR ---
ER DISCHARGE NOTE: Patient is cleared to be discharged per PIEDAD COLLINS, pt is aox4, on room air, with stable vital signs. pt was given dc and prescription instructions, pt was able to verbalize understanding, pt id band and removed without complications. pt is able to ambulate with steady gait. pt took all belongings.
== END 2019-05-25 14:52 | disposition home or self-care (01) ==
LOC: EMR 12:20
DX: R09.81 Nasal congestion (principal); J34.89 Other specified disorders of nose and nasal sinuses; I10 Essential (primary) hypertension; I48.91 Unspecified atrial fibrillation; I50.9 Heart failure, unspecified
CPT/HCPCS: 99282

== ENCOUNTER 2019-06-03 18:40 | Emergency (ER) | payer MEDICARE, MEDICAID ==
[~2019-06-03] VITALS: Ht 177.8 cm; Wt 102.1 kg
[~2019-06-03 18:40] MED LIST changes: +BENADRYL ALLERG25 M1 PO; +NEXAFED30 MG ORAL
[2019-06-03 19:01] VITALS: BP 133/99
--- NOTE | 2019-06-03 19:12 | Emergency Room Report ---
History of Present Illness General Chief Complaint: Pain Source: Patient Present Illness HPI 68-year-old male with history of bilateral lower extremity edema secondary to CHF as well as history of gout currently under the care of primary care physician and on Lasix here requesting lidocaine patches to be applied on bilateral knees. Patient reports that he has an upcoming appointment with primary care physician and has refills of his Lasix. Patient has been here at [facility] multiple times for similar reason. Denies any fall or injury. Has not taken medication today for symptom relief. Denies chest pain, shortness of breath, palpitation, and other associated symptoms. Denies tingling or numbness. 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 Hx Hypertension: Yes Hx Pacemaker: No Hx Asthma: No Hx COPD: No Hx Diabetes: No Hx Cancer: No Hx Gastrointestinal Problems: No Hx Dialysis: No - CKD Hx Cerebrovascular Accident: No Hx Seizures: No Review of Systems All Other Systems: negative except mentioned in HPI Physical Exam Vital Signs Date Time Temp Pulse Resp B/P (MAP) Pulse Ox O2 Delivery O2 Flow Rate FiO2 06/03/19 18:47 98.2 87 18 133/99 (110) 99 Room Air Sp02 EP Interpretation: reviewed, normal General Appearance: no apparent distress, alert, GCS 15, non-toxic Head: normocephalic, atraumatic Eyes: bilateral eye normal inspection, bilateral eye PERRL ENT: hearing grossly normal, normal pharynx, no angioedema, normal voice Neck: full range of motion, supple, thyroid normal, no meningismus, supple/symm /no masses Respiratory: chest non-tender, lungs clear, normal breath sounds, no rhonchi, no respiratory distress, no retraction, no wheezing, speaking full sentences Cardiovascular #1: regular rate, rhythm, no edema, no murmur, normal capillary refill Cardiovascular #2: 2+ dorsalis pedis (R), 2+ dorsalis pedis (L) Gastrointestinal: normal bowel sounds, non tender, soft, non-distended, no guarding, no rebound Rectal: deferred Genitourinary: no CVA tenderness Musculoskeletal: back normal, normal range of motion, digits/nails normal, inflammation, no calf tenderness, pelvis stable, swelling - BL knees Neurologic: alert, motor strength/tone normal, oriented x3, sensory intact, responsive, speech normal Psychiatric: judgement/insight normal, memory normal, mood/affect normal, no suicidal/homicidal ideation Skin: no rash Lymphatic: no adenopathy Medical Decision Making PA Attestation All my diagnosis and treatment plans were reviewed ad discussed with my supervising physician Dr. Galeano Diagnostic Impression: Primary Impression: Knee swelling ER Course 68-year-old male with history of bilateral lower extremity edema secondary to CHF as well as history of gout currently under the care of primary care physician and on Lasix here requesting lidocaine patches to be applied on bilateral knees. Patient reports that he has an upcoming appointment with primary care physician and has refills of his Lasix. Patient has been here at [place] multiple times for similar reason. Denies any fall or injury. Has not taken medication today for symptom relief. Denies chest pain, shortness of breath, palpitation, and other associated symptoms. Denies tingling or numbness. Ddx considered but are not limited to: Knee sprain, strain, fracture, contusion , meniscus tear injury, chronic knee swelling Vital signs: are WNL, pt. is afebrile H&PE are most consistent with: Chronic knee swelling ORDERS: Voltaren gel ER intervention: Lidocaine patch DISCHARGE: At this time pt. is stable for d/c to home. Will provide printed patient care instructions, and any necessary prescriptions. Care plan and follow up instructions have been discussed with the patient prior to discharge. Patient follow-up with primary care provider, if worsening symptoms return to the emergency room Last Vital Signs Date Time Temp Pulse Resp B/P (MAP) Pulse Ox O2 Delivery O2 Flow Rate FiO2 06/03/19 19:01 98.2 87 18 133/99 99 Room Air Disposition: HOME, SELF-CARE Condition: Stable Scripts Diclofenac Sodium (VOLTAREN) 100 Gm Gel..gram. 2 GM TP TID, #100 GM Prov: Bailee Rizvi 06/03/19 Referrals: NOT CHOSEN [facility]/,REFERRING (PCP) Patient Instructions: Edema Additional Instructions: Follow-up with your primary care provider, take medication as directed, if worsening symptoms return to emergency room Bailee Rizvi Jun 03, 2019 19:12
[2019-06-03] MEDS ORDERED: VOLTAREN100 G1 TP (19:13)
[2019-06-03 19:26] VITALS: BP 133/99
== END 2019-06-03 19:26 | disposition home or self-care (01) ==
LOC: EMR 19:09
DX: R22.43 Localized swelling, mass and lump, lower limb, bilateral (principal); I11.0 Hypertensive heart disease with heart failure; I50.9 Heart failure, unspecified
CPT/HCPCS: 99282

== ENCOUNTER 2019-06-08 19:25 | Emergency (ER) | payer MEDICARE, MEDICAID ==
[~2019-06-08] VITALS: Ht 177.8 cm; Wt 99.8 kg
[~2019-06-08 19:25] MED LIST changes: +VOLTAREN100 G1 TP
[2019-06-08 19:48] VITALS: BP 137/97
--- NOTE | 2019-06-08 19:48 | NUR ---
ED Nurse Note: Patient walked in from home c/o BLE pain due to gout and edema x 1 week. Able to walk with steady gait. No SOB. VSS.
--- NOTE | 2019-06-08 20:20 | NUR ---
ED Nurse Note: ERPA at bedside.
[2019-06-08] MEDS ORDERED: Ketorolac 30mg Inj IM ONE (20:30)
--- NOTE | 2019-06-08 20:36 | Emergency Room Report ---
History of Present Illness General Chief Complaint: Pain Source: Patient Present Illness HPI 68-year-old male well known to this ED presents to the emergency department complaining of pain and swelling to the knees bilaterally in addition to need for medication refill of his Lasix and clonidine. Patient with history of chronic lower extremity edema, high blood pressure and CHF. Patient denies difficulty breathing, shortness of breath, cough or sputum production. He denies chest pain or palpitations. Patient states he is not able to get his primary care provider's office over the weekend and will attempt next week. He denies trauma or fall. Patient reports history of gout and severe arthritis in the knees bilaterally. Patient reports pain is greater in the right knee and states that swelling typically resolves with Matthew wraps for which she does not have at this time. He denies calf pain, erythema, increased temperature palpation or recent open wounds. Patient reports his edema, swelling and pain is exacerbated upon prolonged walking. No other aggravating or relieving factors at this time. 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 Peñaloza Is my supervising Physician whom patient management has been discussed with. Diagnostic Impression: Primary Impression: Medication refill Additional Impression: Bilateral knee pain Qualified Codes: M25.561 - Pain in right knee; M25.562 - Pain in left knee ER Course 68-year-old male well known to this ED presents to the emergency department complaining of pain and swelling to the knees bilaterally in addition to need for medication refill of his Lasix and clonidine. Patient with history of chronic lower extremity edema, high blood pressure and CHF. Patient denies difficulty breathing, shortness of breath, cough or sputum production. He denies chest pain or palpitations. Patient states he is not able to get his primary care provider's office over the weekend and will attempt next week. He denies trauma or fall. Patient reports history of gout and severe arthritis in the knees bilaterally. Patient reports pain is greater in the right knee and states that swelling typically resolves with Matthew wraps for which she does not have at this time. He denies calf pain, erythema, increased temperature palpation or recent open wounds. Patient reports his edema, swelling and pain is exacerbated upon prolonged walking. No other aggravating or relieving factors at this time. Ddx considered but are not limited to: drug seeking, OD, Vital signs: are WNL, pt. is afebrile H&PE are most consistent with need for medication refill. No suspicion for acute CHF exacerbation or DVT. NO evidence to suggest infection/septic joint. No increase in laxity. ORDERS: none required at this time, the diagnosis is clinical ED INTERVENTIONS: -Toradol IM -Matthew wraps applied to the knees bilaterally by sample prep technician. Pt. remains neurovascularly intact. DISCHARGE: At this time pt. is stable for d/c to home. Will provide printed patient care instructions, and any necessary prescriptions. Care plan and follow up instructions have been discussed with the patient prior to discharge. Last Vital Signs Date Time Temp Pulse Resp B/P (MAP) Pulse Ox O2 Delivery O2 Flow Rate FiO2 06/08/19 19:48 97.9 88 22 137/97 99 Room Air Disposition: HOME, SELF-CARE Condition: Stable Scripts Furosemide* (LASIX*) 40 Mg Tablet 40 MG ORAL TWICE A DAY for 7 Days, #14 TAB 0 Refills Prov: Amy Salmon 06/08/19 Clonidine Hcl* (CATAPRES*) 0.2 Mg Tablet 0.2 MG ORAL Q8HR, #21 TAB Prov: Amy Salmon 06/08/19 Patient Instructions: Medical Screening Exam, Medicine Refill at the Emergency Department Additional Instructions: Take medications as directed. Follow up with a Primary Care Provider in 3-5 days, even if your symptoms have resolved. - Return sooner to ED if new symptoms occur, or current symptoms become worse. - Please note that this Emergency Department Report was dictated using [employer] processing control clerk technology software, occasionally this can lead to erroneous entry secondary to interpretation by the dictation equipment. Amy Salmon Jun 08, 2019 20:36
[2019-06-08] MEDS ORDERED: CATAPRES0.2 MG ORAL (20:39)
[2019-06-08] MEDS ORDERED: FUROSEMIDE40 MG ORAL (20:39)
[2019-06-08 20:43] VITALS: BP 137/97
--- NOTE | 2019-06-08 20:43 | NUR ---
ED Nurse Note: Pt cleared by ERMD for discharge. DC instructions was given and explained to pt and verbalized understanding of teachings. Prescription sent electronically to the pharmacy of choice. All medical deviecs such as ID band removed. Pt is AAO x4, ambulatory and left with all personal belongings.
== END 2019-06-08 20:43 | disposition home or self-care (01) ==
LOC: EMR 20:01
DX: Z76.0 Encounter for issue of repeat prescription (principal); M25.561 Pain in right knee; M25.562 Pain in left knee; I10 Essential (primary) hypertension; I48.91 Unspecified atrial fibrillation; I50.9 Heart failure, unspecified
CPT/HCPCS: 96372; 99283; J1885

== ENCOUNTER 2019-06-19 12:56 | Emergency (ER) | payer MEDICARE, MEDICAID ==
[~2019-06-19] VITALS: Ht 177.8 cm; Wt 99.8 kg
[2019-06-19] MEDS ORDERED: ASPIR 8181 MG ORAL (13:16)
[2019-06-19] MEDS ORDERED: POTASSIUM CHLO20 ME3 PO (13:16)
--- NOTE | 2019-06-19 13:24 | Emergency Room Report ---
History of Present Illness General Chief Complaint: Lower Extremity Injury Source: Patient Present Illness HPI 68-year-old male with history of CHF, chronic bilateral leg edema, and gout here requesting another injection of Toradol and Lasix. Patient has been here at [facility] multiple times requesting Toradol injection. Patient also goes to [facility], and request the same thing. Patient has an active prescription for Lasix however says insurance will not compensate for it and therefore pharmacy will not give it to the patient until another 5 days. Patient agrees to take 1 pill of Lasix here. I explained to patient that Toradol is not indicated at this time as patient has had a repeatedly in the past several months and will damage his kidneys even more and exacerbate his CHF. Patient has Dr. Alaniz as his primary care physician however reports that he cannot get a hold of him and he has been saying that every time that he come to [facility] ER. He says that Dr. Alaniz most pain medication. Patient denies any recent fall or injury, chest pain, shortness of breath, palpitation, no other associated symptoms at this time. 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 Hx Hypertension: Yes Hx Pacemaker: No Hx Asthma: No Hx COPD: No Hx Diabetes: No Hx Cancer: No Hx Gastrointestinal Problems: No Hx Dialysis: No - CKD Hx Cerebrovascular Accident: No Hx Seizures: No Review of Systems All Other Systems: negative except mentioned in HPI Physical Exam Vital Signs Date Time Temp Pulse Resp B/P (MAP) Pulse Ox O2 Delivery O2 Flow Rate FiO2 06/19/19 13:10 98.1 74 20 118/73 (88) 98 Room Air Sp02 EP Interpretation: reviewed, normal General Appearance: no apparent distress, alert, GCS 15, non-toxic Head: normocephalic, atraumatic Eyes: bilateral eye normal inspection, bilateral eye PERRL ENT: hearing grossly normal, normal pharynx, no angioedema, normal voice Neck: full range of motion, supple/symm/no masses Respiratory: chest non-tender, lungs clear, normal breath sounds, no rhonchi, speaking full sentences Cardiovascular #1: regular rate, rhythm, no edema, no murmur, normal capillary refill Cardiovascular #2: 2+ dorsalis pedis (R), 2+ dorsalis pedis (L) Gastrointestinal: normal bowel sounds, non tender, soft, non-distended, no guarding, no rebound Rectal: deferred Genitourinary: no CVA tenderness Musculoskeletal: back normal, no calf tenderness Neurologic: alert, motor strength/tone normal, oriented x3, sensory intact, responsive, speech normal Psychiatric: judgement/insight normal, memory normal, mood/affect normal, no suicidal/homicidal ideation Skin: no rash Lymphatic: no adenopathy Medical Decision Making PA Attestation All my diagnosis and treatment plans were reviewed ad discussed with my supervising physician Dr. Castillo Diagnostic Impression: Primary Impression: Edema of both legs ER Course 68-year-old male with history of CHF, chronic bilateral leg edema, and gout here requesting another injection of Toradol and Lasix. Patient has been here at [facility] multiple times requesting Toradol injection. Patient also goes to [facility], and request the same thing. Patient has an active prescription for Lasix however says insurance will not compensate for it and therefore pharmacy will not give it to the patient until another 5 days. Patient agrees to take 1 pill of Lasix here. I explained to patient that Toradol is not indicated at this time as patient has had a repeatedly in the past several months and will damage his kidneys even more and exacerbate his CHF. Patient has Dr. Alaniz as his primary care physician however reports that he cannot get a hold of him and he has been saying that every time that he come to [facility] ER. He says that Dr. Alaniz most pain medication. Patient denies any recent fall or injury, chest pain, shortness of breath, palpitation, no other associated symptoms at this time. Ddx considered but are not limited to: Knee sprain, strain, fracture, contusion , meniscus tear injury, chronic leg edema Vital signs: are WNL, pt. is afebrile H&PE are most consistent with: Chronic leg edema ORDERS: Voltaren gel, Motrin ER intervention: Lasix DISCHARGE: At this time pt. is stable for d/c to home. Will provide printed patient care instructions, and any necessary prescriptions. Care plan and follow up instructions have been discussed with the patient prior to discharge. I informed patient that Dr. Alaniz is not on medication patient need to follow- up with him. No more injection of Toradol can be given able in danger patient renal function therefore will exacerbate his CHF. Patient to take Lasix as prescribed by [facility] and picking up the prescription from pharmacy Last Vital Signs Date Time Temp Pulse Resp B/P (MAP) Pulse Ox O2 Delivery O2 Flow Rate FiO2 06/19/19 13:10 98.1 74 20 118/73 (88) 98 Room Air Disposition: HOME, SELF-CARE Condition: Stable Scripts Diclofenac Sodium (VOLTAREN) 100 Gm Gel..gram. 2 GM TP TID, #100 GM Prov: Bailee Rizvi 06/19/19 Ibuprofen* (MOTRIN*) 400 Mg Tablet 400 MG ORAL Q8H, #20 TAB 0 Refills Prov: Bailee Rizvi 06/19/19 Patient Instructions: Edema, Cvby-xo-Rali Bailee Rizvi Jun 19, 2019 13:24
[2019-06-19] MEDS ORDERED: VOLTAREN100 G1 TP (13:25)
[2019-06-19] MEDS ORDERED: IBUPROFEN400 MG ORAL (13:25)
[2019-06-19] MEDS ORDERED: Furosemide 40mg tab ORAL ONE (13:30)
[2019-06-19 13:50] VITALS: BP 120/73
[2019-06-29] MEDS ORDERED: ALLOPURINOL300 M1 ORAL (15:35)
[2019-06-29] MEDS ORDERED: COLCRYS0.6 M1 PO (15:35)
== END 2019-06-19 13:50 | disposition home or self-care (01) ==
LOC: EMR 13:38
DX: R60.0 Localized edema (principal); I13.0 Hypertensive heart and chronic kidney disease with heart failure and stage 1 through stage 4 chronic kidney disease, or unspecified chronic kidney disease; N18.9 Chronic kidney disease, unspecified; I50.9 Heart failure, unspecified
CPT/HCPCS: 99282

== ENCOUNTER 2019-06-23 16:54 | Emergency (ER) | payer MEDICARE, MEDICAID ==
[~2019-06-23] VITALS: Ht 177.8 cm; Wt 99.8 kg
[~2019-06-23 16:54] MED LIST changes: +IBUPROFEN400 MG ORAL; +POTASSIUM CHLO20 ME3 PO
[2019-06-23] MEDS ORDERED: COREG3.125 MG ORAL (17:12)
[2019-06-23 17:20] VITALS: BP 121/73
[2019-06-23] MEDS ORDERED: Furosemide 40mg tab ORAL ONE (18:15)
[2019-06-23 18:32] VITALS: BP 124/76
--- NOTE | 2019-06-23 22:26 | Emergency Room Report ---
History of Present Illness General Chief Complaint: Edema Source: Patient Present Illness HPI 68-year-old male presents the ED for evaluation. Complaining of leg swelling and pain to his lower extremities. Pain is chronic. History of CHF and chronic gout. States he was sent in by his PMD to be admitted. Was at [facility] yesterday. Denies chest pain or shortness of breath. States he is waiting for his Lasix prescription to be filled tomorrow. No other aggravating relieving factors. 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 Hx Hypertension: Yes Hx Pacemaker: No Hx Asthma: No Hx COPD: No Hx Diabetes: No Hx Cancer: No Hx Gastrointestinal Problems: No Hx Dialysis: No - CKD Hx Cerebrovascular Accident: No Hx Seizures: No Review of Systems All Other Systems: negative except mentioned in HPI Physical Exam Vital Signs Date Time Temp Pulse Resp B/P (MAP) Pulse Ox O2 Delivery O2 Flow Rate FiO2 06/23/19 17:07 97.5 93 20 121/73 (89) 100 Room Air Sp02 EP Interpretation: reviewed, normal General Appearance: no apparent distress, alert, GCS 15, non-toxic Head: normocephalic, atraumatic Eyes: bilateral eye normal inspection, bilateral eye PERRL ENT: hearing grossly normal, normal pharynx, no angioedema, normal voice Neck: full range of motion, supple/symm/no masses Respiratory: chest non-tender, lungs clear, normal breath sounds, speaking full sentences Cardiovascular #1: regular rate, rhythm, no edema Cardiovascular #2: 2+ carotid (R), 2+ carotid (L), 2+ radial (R), 2+ radial (L) , 2+ dorsalis pedis (R), 2+ dorsalis pedis (L) Gastrointestinal: normal bowel sounds, non tender, soft, non-distended, no guarding, no rebound Rectal: deferred Genitourinary: normal inspection, no CVA tenderness Musculoskeletal: back normal, normal range of motion, gait/station normal, swelling - 2+ pitting edema Neurologic: alert, motor strength/tone normal, oriented x3, sensory intact, responsive, speech normal Psychiatric: judgement/insight normal, memory normal, mood/affect normal, no suicidal/homicidal ideation Reflexes: 3+ bicep (R), 3+ bicep (L), 3+ tricep (R), 3+ tricep (L), 3+ knee (R) , 3+ knee (L) Skin: no rash Lymphatic: no adenopathy Medical Decision Making Diagnostic Impression: Primary Impression: Peripheral edema Additional Impression: Chronic gout Qualified Codes: M1A.[id number] - Chronic gout, unspecified, without tophus (tophi) ER Course Hospital Course 68 yo M presents with bilateral leg pain/swelling. h/o CHF, gout Differential diagnoses include: cellulitis, chronic gout, CHF Clinical course Patient placed on stretcher. After initial history, physical exam reveals an elderly male in no acute distress. There is some pitting edema to the lower extremities. Vitals stable. No signs of distress. Lungs clear. I spoke to PMD Dr. Alaniz. He stated that he did not asked the patient to come in to be admitted. States that the patient was seen yesterday at [facility] and subsequently discharged. He agrees that there is no indication for admission. I agree with this assessment. given Lasix in ED. I discussed these findings with the patient. He is requesting Toradol. Patient has been here numerous times for similar presentation. I do not believe it is appropriate to provide Toradol on a regular basis given his comorbidities. Patient states he will follow-up with his PMD next week. Safe for discharge for close outpatient follow-up Diagnosis - peripheral edema, chronic gout stable and discharged to home. Followup with PMD. Return to ED if symptoms recur or worsen Last Vital Signs Date Time Temp Pulse Resp B/P (MAP) Pulse Ox O2 Delivery O2 Flow Rate FiO2 06/23/19 18:32 97.5 84 16 124/76 100 Room Air Status: improved Disposition: HOME, SELF-CARE Condition: Stable Patient Instructions: Peripheral Edema Mateo Galeano MD Jun 23, 2019 22:25
== END 2019-06-23 18:32 | disposition home or self-care (01) ==
LOC: EMR 17:43
DX: R60.0 Localized edema (principal); M1A.9XX0 Chronic gout, unspecified, without tophus (tophi); I10 Essential (primary) hypertension; I48.91 Unspecified atrial fibrillation; I50.9 Heart failure, unspecified
CPT/HCPCS: 96374; 99284

== ENCOUNTER 2019-07-10 19:49 | Emergency (ER) | payer MEDICARE, MEDICAID ==
[~2019-07-10] VITALS: Ht 177.8 cm; Wt 99.8 kg
[~2019-07-10 19:49] MED LIST changes: +ALLOPURINOL300 M1 ORAL; +COREG3.125 MG ORAL
[2019-07-10 19:57] VITALS: BP 130/80
--- NOTE | 2019-07-10 19:57 | NUR ---
ED Nurse Note: PT walked in to ED for medication refill. Pt needed potassium chloride and clonidine refill.
--- NOTE | 2019-07-10 20:23 | Emergency Room Report ---
History of Present Illness General Chief Complaint: Medication Refill Source: Patient Present Illness HPI 68-year-old male presents to the emergency department requesting refill of 2 of his medications. He had an appointment today with his PCP, Dr. montejo. However, he was over an hour late and was unable to be seen. Patient has history of chronic bilateral lower extremity edema and he is taking Lasix to manage his symptoms. Patient reports that due to being on Lasix he has to take 20MeQ Potassium supplementation and he states he has not had his potassium and 5 days. Patient states that he is experiencing intermittent cramping in his legs and thighs he denies pain at this moment. He is also requesting refill of his 0.2 mg clonidine for which he takes for management of his high blood pressure. Denies CP, Palpitations, LOC, AMS, dizziness, Changes in Vision, Sensation, paresthesias, or a sudden severe headache. Allergies: Coded Allergies: DILTIAZEM (Verified Allergy, Severe, Anaphylaxis, 07/03/19) Uncoded Allergies: Electrode (Allergy, Intermediate, Icting, 06/27/19) Patient History Past Medical History: see triage record, HTN Past Surgical History: none Pertinent Family History: none Reviewed Nursing Documentation: PMH: Agreed; PSxH: Agreed Nursing Documentation-PMH Past Medical History: No History, Except For Hx Cardiac Problems: Yes - AFIB Hx Hypertension: Yes Hx Pacemaker: No Hx Asthma: No Hx COPD: No Hx Diabetes: No Hx Cancer: No Hx Gastrointestinal Problems: No Hx Dialysis: No - CKD Hx Neurological Problems: No Hx Cerebrovascular Accident: No Hx Seizures: No Review of Systems All Other Systems: negative except mentioned in HPI Physical Exam Vital Signs Date Time Temp Pulse Resp B/P (MAP) Pulse Ox O2 Delivery O2 Flow Rate FiO2 07/10/19 19:54 98.1 74 20 124/76 (92) 100 Sp02 EP Interpretation: reviewed, normal General Appearance: no apparent distress, alert, GCS 15, non-toxic Head: normocephalic, atraumatic Eyes: bilateral eye normal inspection, bilateral eye PERRL ENT: hearing grossly normal, normal voice Neck: full range of motion Respiratory: lungs clear, normal breath sounds, no respiratory distress, no wheezing, speaking full sentences Cardiovascular #1: regular rate, rhythm, edema - 1+ non-pitting LE edema bilaterally. Musculoskeletal: back normal, normal range of motion, no calf tenderness, gait/ station normal, non-tender, other - 1+ non-pitting LE edema bilaterally Neurologic: alert, motor strength/tone normal, oriented x3, sensory intact, responsive, speech normal Psychiatric: judgement/insight normal Skin: no rash, normal color Medical Decision Making PA Attestation Dr. Galeano is my supervising Physician whom patient management has been discussed with. Diagnostic Impression: Primary Impression: Muscle cramps Additional Impression: Encounter for medication refill ER Course 68-year-old male presents to the emergency department requesting refill of 2 of his medications. He had an appointment today with his PCP, Dr. montejo. However, he was over an hour late and was unable to be seen. Patient has history of chronic bilateral lower extremity edema and he is taking Lasix to manage his symptoms. Patient reports that due to being on Lasix he has to take 20MeQ Potassium supplementation and he states he has not had his potassium and 5 days. Patient states that he is experiencing intermittent cramping in his legs and thighs he denies pain at this moment. He is also requesting refill of his 0.2 mg clonidine for which he takes for management of his high blood pressure. Denies CP, Palpitations, LOC, AMS, dizziness, Changes in Vision, Sensation, paresthesias, or a sudden severe headache. Ddx considered but are not limited to: drug seeking, OD, hypokalemia, HTN just to name a few. Vital signs: are WNL, pt. is afebrile H&PE are most consistent with need for medication refill. Non-toxic in appearance, NAD. not currently experiencing symptoms. ORDERS: none required at this time, the diagnosis is clinical ED INTERVENTIONS: -KCl 20Meq PO -I do not identify an emergent condition at this time. With current presentation , pt. is stable for close outpatient follow up and conservative treatment. D/ w pt. to return promptly to ED with worsening or new symptoms.- Pt. verbalizes' understanding and agreement with proposed treatment plan.proposed treatment plan. DISCHARGE: At this time pt. is stable for d/c to home. Will provide printed patient care instructions, and any necessary prescriptions. Care plan and follow up instructions have been discussed with the patient prior to discharge. Last Vital Signs Date Time Temp Pulse Resp B/P (MAP) Pulse Ox O2 Delivery O2 Flow Rate FiO2 07/10/19 19:57 98.1 79 19 130/80 100 Disposition: HOME, SELF-CARE Condition: Stable Scripts Potassium Chloride (Potassium Chloride) 20 Meq Tablet.er 20 MEQ PO DAILY, #14 TAB Prov: Amy Salmon 07/10/19 Clonidine Hcl* (CATAPRES*) 0.2 Mg Tablet 0.2 MG ORAL Q6HR for 7 Days, #28 TAB Prov: Amy Salmon 07/10/19 Patient Instructions: Medicine Refill at the Emergency Department Additional Instructions: Take medications as directed. Follow up with a Primary Care Provider in 3-5 days, even if your symptoms have resolved. Return sooner to ED if new symptoms occur, or current symptoms become worse. - Please note that this Emergency Department Report was dictated using [employer]aytelephone engineer technology software, occasionally this can lead to erroneous entry secondary to interpretation by the dictation equipment. Amy Salmon Jul 10, 2019 20:23
[2019-07-10] MEDS ORDERED: CATAPRES0.2 MG ORAL (20:27)
[2019-07-10] MEDS ORDERED: POTASSIUM CHLO20 ME3 PO (20:27)
[2019-07-10 20:38] VITALS: BP 130/85
== END 2019-07-10 20:38 | disposition home or self-care (01) ==
LOC: EMR 20:09
DX: R25.2 Cramp and spasm (principal); Z76.0 Encounter for issue of repeat prescription; I10 Essential (primary) hypertension; Z88.8 Allergy status to other drugs, medicaments and biological substances
CPT/HCPCS: 99282; J8499

== ENCOUNTER 2019-07-23 01:47 | Emergency (ER) | payer MEDICARE, MEDICAID ==
[~2019-07-23] VITALS: Ht 177.8 cm; Wt 99.8 kg
[~2019-07-23 01:47] MED LIST changes: +ZYRTEC10 MG ORAL
[2019-07-23 02:35] VITALS: BP 125/75
--- NOTE | 2019-07-23 02:35 | NUR ---
ED Nurse Note: Patient walked in from home d/t bilateral lower leg non pitting edema. No complaints of pain. Patient aao x 4 and ambulatory. Patient stated lasix not giving relief. No acute distress noted.
--- NOTE | 2019-07-23 02:38 | NUR ---
ED Nurse Note: Patient requested for another nurse to initate IV line, charge nurse aware.
--- NOTE | 2019-07-23 02:38 | NUR ---
ED Nurse Note: Patient requested to have both bedside rails kept down.
[2019-07-23 02:51] LABS: APPEARANCE,URINE CLEAR; BILIRUBIN, URINE NEGATIVE (NEGATIVE); COLOR,URINE PALE YELLOW; GLUCOSE, URINE (UA) NEGATIVE (NEGATIVE); KETONES,URINE NEGATIVE (NEGATIVE); LEUKOCYTE ESTERASE ,URINE NEGATIVE (NEGATIVE); NITRITE,URINE NEGATIVE (NEGATIVE); PH,URINE 7 (4.5-8.0); PROTEIN,URINE NEGATIVE (NEGATIVE); UROBILINOGEN,URINE 1 MG/DL (0.0-1.0)
--- NOTE | 2019-07-23 03:15 | NUR ---
ED Nurse Note: Xray at bedside.
--- NOTE | 2019-07-23 03:18 | NUR ---
ED Nurse Note: Patient provided with iced water and warm blanket.
[2019-07-23 03:23] LABS: ANION GAP -1 mmol/L (5-15); BLOOD UREA NITROGEN 28 mg/dL (7-18); CALCIUM 9.3 MG/DL (8.5-10.1); CARBON DIOXIDE 26 MMOL/L (21-32); CHLORIDE 110 MMOL/L (98-107); CREATININE 1.9 MG/DL (0.55-1.30); POTASSIUM 4.2 MMOL/L (3.5-5.1); SODIUM 135 MMOL/L (136-145)
[2019-07-23 03:24] LABS: BASOPHILS % (AUTO) 1.2 % (0.0-2.0); EOSINOPHILS % (AUTO) 4.6 % (0.0-3.0); HEMATOCRIT 41.7 % (42.0-52.0); HEMOGLOBIN 13.7 G/DL (14.2-18.0); LYMPHOCYTES % (AUTO) 22.9 % (20.0-45.0); MEAN CORPUSCULAR VOLUME 88 FL (80-99); MONOCYTES % (AUTO) 14.1 % (1.0-10.0); NEUTROPHILS % (AUTO) 57.3 % (45.0-75.0); PLATELET COUNT 196 K/UL (150-450); RED BLOOD COUNT 4.72 M/UL (4.70-6.10); RED CELL DISTRIBUTION WIDTH 13.6 % (11.6-14.8); WHITE BLOOD COUNT 6.7 K/UL (4.8-10.8)
[2019-07-23 03:34] LABS: ALANINE AMINOTRANSFERASE 40 U/L (12-78); ALBUMIN 2.9 G/DL (3.4-5.0); ALBUMIN/GLOBULIN RATIO 0.8 (1.0-2.7); ALKALINE PHOSPHATASE 124 U/L (46-116); ASPARTATE AMINO TRANSFERASE 27 U/L (15-37); BILIRUBIN,TOTAL 0.3 MG/DL (0.2-1.0)
--- NOTE | 2019-07-23 03:34 | Emergency Room Report ---
History of Present Illness General Chief Complaint: Edema Source: Patient Present Illness HPI This is a 68-year-old male well-known to this ER and other hospitals around this area. He presents with chief complaint of increasing shortness of breath and pedal edema. This is a chronic problem for him. He claimed that he is compliant with his medication but is been known to be noncompliant in the past. He also goes to different hospitals and to [facility] for the same complaint. He said this got worse in the last few days. No nausea no vomiting. No fever chills. Worse with exertion. Denies any other complaint. Allergies: Coded Allergies: DILTIAZEM (Verified Allergy, Severe, Anaphylaxis, 07/03/19) Uncoded Allergies: Electrode (Allergy, Intermediate, Icting, 06/27/19) Patient History Past Medical History: see triage record, old chart reviewed, HTN, CHF, AFib Past Surgical History: other Pertinent Family History: none Social History: Denies: smoking Immunizations: other Reviewed Nursing Documentation: PMH: Agreed; PSxH: Agreed Nursing Documentation-PMH Hx Cardiac Problems: Yes - AFIB, CHF Hx Hypertension: Yes - gout Hx Pacemaker: No - retina detachment in the rigth eye Hx Asthma: No Hx COPD: No Hx Diabetes: No Hx Cancer: No Hx Gastrointestinal Problems: No Hx Dialysis: No Hx Neurological Problems: No Hx Cerebrovascular Accident: No Hx Seizures: No Review of Systems Eye: Denies: eye pain, blurred vision ENT: Denies: ear pain, nose congestion, throat swelling Respiratory: Reports: shortness of breath; Denies: cough Cardiovascular: Denies: chest pain, palpitations Gastrointestinal: Denies: abdominal pain, diarrhea, nausea, vomiting Musculoskeletal: Denies: back pain, joint pain Skin: Denies: rash Neurological: Denies: headache, numbness Endocrine: Denies: increased thirst, increased urine Hematologic/Lymphatic: Denies: easy bruising All Other Systems: negative except mentioned in HPI Physical Exam Vital Signs Date Time Temp Pulse Resp B/P (MAP) Pulse Ox O2 Delivery O2 Flow Rate FiO2 07/23/19 01:59 97.3 88 18 120/85 (97) 98 Room Air Vitals normal Sp02 EP Interpretation: reviewed, normal General Appearance: well appearing, no apparent distress, alert Head: normocephalic, atraumatic Eyes: bilateral eye PERRL, bilateral eye EOMI ENT: hearing grossly normal, normal pharynx Neck: full range of motion, supple, no meningismus Respiratory: chest non-tender, lungs clear, normal breath sounds Cardiovascular #1: regular rate, rhythm, no murmur Gastrointestinal: normal bowel sounds, non tender, no mass, no organomegaly, no bruit, non-distended Musculoskeletal: back normal, normal range of motion, gait/station normal, swelling - 3+ pitting edema Psychiatric: mood/affect normal Medical Decision Making Diagnostic Impression: Primary Impression: CHF (congestive heart failure) Qualified Codes: I50.32 - Chronic diastolic (congestive) heart failure Additional Impression: Atrial fibrillation Qualified Codes: I48.11 - Longstanding persistent atrial fibrillation ER Course Patient presents with chronic A. fib and chronic CHF with pedal edema. Chest x- ray looks fine. His BNP is actually better than when he was discharged from the hospital. No evidence of ACS, PE, dissection to name a few. Heart rate is well controlled. He diuresed well here. Will discharge home. EKG Diagnostic Results Rate: normal Rhythm: other - A. fib ST Segments: other - NSST changes Rhythm Strip Diag. Results EP Interpretation: yes Rate: 95 Rhythm: no PVC's, no ectopy, other - afib Chest X-Ray Diagnostic Results Chest X-Ray Diagnostic Results : Chest X-Ray Ordered: Yes # of Views/Limited/Complete: 1 View Indication: Shortness of Breath EP Interpretation: Yes Interpretation: no consolidation, no effusion, no pneumothorax, no acute cardiopulmonary disease, other - cm Impression: No acute disease Electronically Signed by: Rajinder Coyle MD Last Vital Signs Date Time Temp Pulse Resp B/P (MAP) Pulse Ox O2 Delivery O2 Flow Rate FiO2 07/23/19 02:35 97.3 85 16 125/75 98 Room Air Status: improved Disposition: HOME, SELF-CARE Condition: Stable Patient Instructions: Peripheral Edema Additional Instructions: Sinew with your Lasix dose. Follow-up with your doctor on Wednesday as scheduled. Return if worse. Rajinder Coyle MD Jul 23, 2019 03:34
--- NOTE | 2019-07-23 03:50 | Diagnostic Imaging Report ---
EXAM: XR Chest, 1 View CLINICAL HISTORY: SOB TECHNIQUE: Frontal view of the chest. COMPARISON: 07/14/19 FINDINGS: Lungs: Unremarkable. No consolidation. Pleural space: Unremarkable. No pneumothorax. Heart: Unremarkable. No cardiomegaly. Mediastinum: Unremarkable. Bones/joints: Unremarkable. IMPRESSION: Normal chest x-ray.
[2019-07-23 04:03] VITALS: BP 123/82
--- NOTE | 2019-07-23 04:03 | NUR ---
ER DISCHARGE NOTE: Patient is cleared to be discharged per ERMD, pt is aox4, on room air, with stable vital signs. pt was given dc instructions, pt was able to verbalize understanding, pt id band and iv site removed without complications. pt took all belongings. pt stable upon discharge.
[2019-07-25] MEDS ORDERED: CATAPRES0.2 MG ORAL (00:50)
== END 2019-07-23 04:03 | disposition home or self-care (01) ==
LOC: EMR 01:59
DX: I11.0 Hypertensive heart disease with heart failure (principal); I48.11 Longstanding persistent atrial fibrillation; I50.32 Chronic diastolic (congestive) heart failure; Z88.8 Allergy status to other drugs, medicaments and biological substances
CPT/HCPCS: 36415; 71045; 80053; 81003; 83880; 84484; 85025; 93005; 96374; 99284; J1940

== ENCOUNTER 2019-08-02 18:35 | Inpatient (IN) | payer MEDICARE, MEDICAID ==
[~2019-08-02] VITALS: Ht 177.8 cm; Wt 96.6 kg
[~2019-08-02 18:35] MED LIST changes: +BENADRYL25 MG ORAL; +CALAMINE LOTIO177 ML TP
--- NOTE | 2019-08-02 18:55 | NUR ---
ED Nurse Note: pt walked in to ed for c/o swelling to bilateral lower leg 2 days. pt reports having sob at times. pt has hx of chf.
[2019-08-02 18:57] VITALS: BP 138/84
--- NOTE | 2019-08-02 18:58 | Emergency Room Report ---
History of Present Illness General Chief Complaint: Edema Source: Patient Present Illness HPI Patient presents with reports of ongoing edema and some shortness of breath Patient has had longstanding history of CHF is fairly noncompliant with medications At this time reports exertional dyspnea Denies any chest pain denies any vomiting or diarrhea denies any recent travel Patient was here recently previously And had complained that he was seen at different hospitals and was having a reaction to the medication However at this time presents with complaints of increased edema and some shortness of breath Allergies: Coded Allergies: DILTIAZEM (Verified Allergy, Severe, Anaphylaxis, 07/03/19) Uncoded Allergies: Electrode (Allergy, Intermediate, Icting, 06/27/19) Patient History Past Medical History: see triage record Reviewed Nursing Documentation: PMH: Agreed; PSxH: Agreed Nursing Documentation-PMH Past Medical History: No History, Except For Hx Hypertension: Yes Hx Pacemaker: No - retina detachment in the rigth eye Hx Asthma: No Hx COPD: No Hx Diabetes: No Hx Cancer: No Hx Gastrointestinal Problems: No Hx Dialysis: No Hx Neurological Problems: No Hx Cerebrovascular Accident: No Hx Seizures: No Review of Systems All Other Systems: negative except mentioned in HPI Physical Exam Vital Signs Date Time Temp Pulse Resp B/P (MAP) Pulse Ox O2 Delivery O2 Flow Rate FiO2 08/02/19 18:47 98.1 71 16 124/81 (95) 100 Room Air Sp02 EP Interpretation: reviewed, normal General Appearance: well appearing, no apparent distress Head: normocephalic, atraumatic Eyes: bilateral eye PERRL, bilateral eye EOMI ENT: hearing grossly normal, normal pharynx, TMs + canals normal, uvula midline Neck: full range of motion, supple, no meningismus, no bony tend Respiratory: lungs clear, normal breath sounds, no rhonchi, no respiratory distress, no retraction, no accessory muscle use Cardiovascular #1: normal peripheral pulses, no gallop, no JVD, no murmur, irregularly irregular Gastrointestinal: normal bowel sounds, non tender, soft, no mass, no organomegaly, non-distended, no guarding, no hernia, no pulsatile mass, no rebound Genitourinary: no CVA tenderness Musculoskeletal: normal inspection Neurologic: motor strength/tone normal, coverage specialist rn III-XII nml as tested, oriented x3 , sensory intact, responsive Psychiatric: mood/affect normal Skin: other - Sniffing and edema bilaterally 2 out of 4 Lymphatic: normal inspection, no adenopathy Medical Decision Making Diagnostic Impression: Primary Impression: Atrial fibrillation with rapid ventricular response Additional Impression: CHF (congestive heart failure) ER Course Patient is a fairly complex patient with multiple differential to consideration including but not limited to cardiac cardiopulmonary and vascular emergencies Patient's heart rate is improving He does clinically appear edematous and fluid overloaded IV diuretics are provided and patient requires further inpatient care Labs Test 08/02/19 19:15 08/02/19 20:05 White Blood Count 11.6 K/UL (4.8-10.8) Red Blood Count 4.50 M/UL (4.70-6.10) Hemoglobin 13.0 G/DL (14.2-18.0) Hematocrit 39.5 % (42.0-52.0) Mean Corpuscular Volume 88 FL (80-99) Mean Corpuscular Hemoglobin 28.8 PG (27.0-31.0) Mean Corpuscular Hemoglobin Concent 32.8 G/DL (32.0-36.0) Red Cell Distribution Width 13.6 % (11.6-14.8) Platelet Count 210 K/UL (150-450) Mean Platelet Volume 9.3 FL (6.5-10.1) Neutrophils (%) (Auto) 72.2 % (45.0-75.0) Lymphocytes (%) (Auto) 13.8 % (20.0-45.0) Monocytes (%) (Auto) 11.4 % (1.0-10.0) Eosinophils (%) (Auto) 1.6 % (0.0-3.0) Basophils (%) (Auto) 0.9 % (0.0-2.0) Sodium Level 146 MMOL/L (136-145) Potassium Level 3.9 MMOL/L (3.5-5.1) Chloride Level 112 MMOL/L (98-107) Carbon Dioxide Level 25 MMOL/L (21-32) Anion Gap 9 mmol/L (5-15) Blood Urea Nitrogen 33 mg/dL (7-18) Creatinine 2.0 MG/DL (0.55-1.30) Estimat Glomerular Filtration Rate 40.5 mL/min (>60) Glucose Level 106 MG/DL (74-106) Calcium Level 8.8 MG/DL (8.5-10.1) Total Bilirubin 0.4 MG/DL (0.2-1.0) Aspartate Amino Transf (AST/SGOT) 34 U/L (15-37) Alanine Aminotransferase (ALT/SGPT) 37 U/L (12-78) Alkaline Phosphatase 111 U/L (46-116) Troponin I 0.036 ng/mL (0.000-0.056) Pro-B-Type Natriuretic Peptide 1506 pg/mL (0-125) Total Protein 6.0 G/DL (6.4-8.2) Albumin 2.8 G/DL (3.4-5.0) Globulin 3.2 g/dL Albumin/Globulin Ratio 0.9 (1.0-2.7) Urine Opiates Screen Negative (NEGATIVE) Urine Barbiturates Screen Negative (NEGATIVE) Phencyclidine (PCP) Screen Negative (NEGATIVE) Urine Amphetamines Screen Negative (NEGATIVE) Urine Benzodiazepines Screen Negative (NEGATIVE) Urine Cocaine Screen Negative (NEGATIVE) Urine Marijuana (THC) Screen Negative (NEGATIVE) EKG Diagnostic Results Rate: normal Rhythm: other - A. fib ST Segments: no acute changes Rhythm Strip Diag. Results EP Interpretation: yes Rate: 88 Rhythm: no PVC's, no ectopy, other - Irregularly irregular Chest X-Ray Diagnostic Results Chest X-Ray Diagnostic Results : Chest X-Ray Ordered: Yes # of Views/Limited/Complete: 1 View Indication: Shortness of Breath EP Interpretation: Yes Interpretation: no consolidation, no effusion, other - Cardiomegaly mild congestion Impression: Other - Cardiomegaly mild congestion Electronically Signed by: Christie Celeste DO Last Vital Signs Date Time Temp Pulse Resp B/P (MAP) Pulse Ox O2 Delivery O2 Flow Rate FiO2 08/02/19 18:47 98.1 71 16 124/81 (95) 100 Room Air Status: improved Disposition: ADMITTED INPATIENT Condition: Serious Christie Celeste DO Aug 02, 2019 18:58
--- NOTE | 2019-08-02 19:22 | NUR ---
ED Nurse Note: blood sample sent down to lab. pt unable to provide urine at this time.
--- NOTE | 2019-08-02 19:25 | NUR ---
ED Nurse Note: cxr being done at bedside.
[2019-08-02 19:36] LABS: BASOPHILS % (AUTO) 0.9 % (0.0-2.0); EOSINOPHILS % (AUTO) 1.6 % (0.0-3.0); HEMATOCRIT 39.5 % (42.0-52.0); LYMPHOCYTES % (AUTO) 13.8 % (20.0-45.0); MEAN CORPUSCULAR VOLUME 88 FL (80-99); MONOCYTES % (AUTO) 11.4 % (1.0-10.0); NEUTROPHILS % (AUTO) 72.2 % (45.0-75.0); PLATELET COUNT 210 K/UL (150-450); RED CELL DISTRIBUTION WIDTH 13.6 % (11.6-14.8); WHITE BLOOD COUNT 11.6 K/UL (4.8-10.8)
[2019-08-02 19:46] VITALS: BP 109/68
--- NOTE | 2019-08-02 19:47 | NUR ---
ED Nurse Note: Patient is resting comfortably with no s/s of acute distress, vital signs stable and documented.
[2019-08-02 20:36] LABS: ANION GAP 9 mmol/L (5-15); BLOOD UREA NITROGEN 33 mg/dL (7-18); CALCIUM 8.8 MG/DL (8.5-10.1); CARBON DIOXIDE 25 MMOL/L (21-32); CHLORIDE 112 MMOL/L (98-107); POTASSIUM 3.9 MMOL/L (3.5-5.1); SODIUM 146 MMOL/L (136-145)
[2019-08-02 20:47] LABS: ALANINE AMINOTRANSFERASE 37 U/L (12-78); ALBUMIN 2.8 G/DL (3.4-5.0); ALBUMIN/GLOBULIN RATIO 0.9 (1.0-2.7); ALKALINE PHOSPHATASE 111 U/L (46-116); ASPARTATE AMINO TRANSFERASE 34 U/L (15-37); BILIRUBIN,TOTAL 0.4 MG/DL (0.2-1.0)
--- NOTE | 2019-08-02 21:09 | NUR ---
ED Nurse Note: Perpatient request two juices provided. Apple and cranberry.
--- NOTE | 2019-08-02 22:35 | NUR ---
ED Nurse Note: Report rendered to gabbie TSAI.
--- NOTE | 2019-08-02 22:45 | NUR ---
ED Nurse Note: Patient traposrted to the floor by [facility] tech along with claim professional with no complications.
--- NOTE | 2019-08-02 23:00 | NUR ---
NURSE NOTES: Received patient from ED. Patient alert and oriented x4. Denies pain. Ambulatory. Bilateral 2+ pitting edema in lower extremities. 20 gauge piv on left hand intact. On room air, no signs of respiratory distress. Bed in low position, locked, call light within reach.
--- NOTE | 2019-08-02 23:45 | NUR ---
NURSE NOTES: Received admitting orders from Dr. Alaniz
[2019-08-03] VITALS: BP 141/94
[2019-08-03] MEDS ORDERED: HYDROcodone/Acetamin 5/325 tab ORAL PRN
[2019-08-03 04:00] VITALS: BP 132/70
[2019-08-03] MEDS: Heparin 5000 units/ml inj SUBQ SCH ×3 (05:46→21:44)
--- NOTE | 2019-08-03 06:27 | NUR ---
NURSE NOTES: Notified Dr. Alaniz that patient had an episode of 6 beats of vtach.
[2019-08-03 07:30] LABS: EOSINOPHILS % (AUTO) 2.8 % (0.0-3.0); HEMOGLOBIN 12.3 G/DL (14.2-18.0); LYMPHOCYTES % (AUTO) 21.4 % (20.0-45.0); MEAN CORPUSCULAR VOLUME 88 FL (80-99); MONOCYTES % (AUTO) 9.4 % (1.0-10.0); NEUTROPHILS % (AUTO) 65.4 % (45.0-75.0); PLATELET COUNT 187 K/UL (150-450); RED BLOOD COUNT 4.18 M/UL (4.70-6.10); RED CELL DISTRIBUTION WIDTH 13.5 % (11.6-14.8); WHITE BLOOD COUNT 9.5 K/UL (4.8-10.8)
[2019-08-03 07:54] LABS: ALANINE AMINOTRANSFERASE 32 U/L (12-78); ALBUMIN 2.7 G/DL (3.4-5.0); ALBUMIN/GLOBULIN RATIO 0.8 (1.0-2.7); ALKALINE PHOSPHATASE 99 U/L (46-116); ANION GAP 10 mmol/L (5-15); ASPARTATE AMINO TRANSFERASE 27 U/L (15-37); BILIRUBIN,TOTAL 0.5 MG/DL (0.2-1.0); BLOOD UREA NITROGEN 28 mg/dL (7-18); CALCIUM 9.2 MG/DL (8.5-10.1); CARBON DIOXIDE 24 MMOL/L (21-32); CHLORIDE 111 MMOL/L (98-107); CREATININE 1.7 MG/DL (0.55-1.30); PHOSPHORUS 2.5 MG/DL (2.5-4.9); POTASSIUM 3.6 MMOL/L (3.5-5.1); SODIUM 145 MMOL/L (136-145)
[2019-08-03 08:00] VITALS: BP 99/66
[2019-08-03] MEDS: Aspirin Baby 81mg ORAL SCH (09:59)
--- NOTE | 2019-08-03 10:02 | Diagnostic Imaging Report ---
Indication: Shortness of breath Technique: One view of the chest Comparison: 07/23/2019 Findings: The heart size is upper limits normal. Lungs pleural spaces are clear. The aorta is tortuous and ectatic. There is no significant interim change Impression: No acute process
[2019-08-03 12:00] VITALS: BP 101/61
--- NOTE | 2019-08-03 12:47 | Consultation ---
History of Present Illness General Date patient seen: Aug 03, 2019 Chief Complaint: Edema Present Illness HPI 68-year-old male with past medical history significant for hypertension, chronic congestive heart failure, chronic atrial fibrillation, gout presented to the emergency room complaining about leg edema. The patient has been in and out of the hospital for the same symptoms multiple times at various hospitals. Upon arrival to the Emergency, the patient was noted to have elevated proBNP and noted to have worsening renal function and subsequently the patient was admitted to the hospital with worsening peripheral edema and decompensation of his CHF. Allergies: Coded Allergies: DILTIAZEM (Verified Allergy, Severe, Anaphylaxis, 07/03/19) Uncoded Allergies: Electrode (Allergy, Intermediate, Icting, 06/27/19) Medication History Scheduled Aspirin* (Aspir 81*), 81 MG ORAL DAILY, (Reported) Calamine/Zinc Oxide (Calamine Lotion*), 1 APPLIC TP DAILY Clonidine Hcl* (Catapres*), 0.2 MG ORAL Q8HR Furosemide* (Lasix*), 40 MG ORAL TWICE A DAY Potassium Chloride (Potassium Chloride), 20 MEQ PO DAILY, (Reported) Scheduled PRN Allopurinol* (Allopurinol*), 300 MG ORAL DAILY PRN for GOUT, (Reported) Colchicine (Colcrys), 0.6 MG PO DAILY PRN for GOUT, (Reported) Diphenhydramine Hcl* (Benadryl*), 25 MG ORAL Q12HR PRN for Itching Patient History Healthcare decision maker Resuscitation status Full Code Advanced Directive on File Past Medical/Surgical History Past Medical/Surgical History: (1) Chronic renal insufficiency (2) Kidney mass (3) HTN (hypertension) (4) Chronic leg pain (5) Chronic gout (6) Right-sided heart failure Review of Systems All Other Systems: negative except mentioned in HPI Physical Exam General Appearance: WD/WN, no apparent distress Lines, tubes and drains: peripheral HEENT: normocephalic, atraumatic Neck: non-tender, normal alignment Respiratory/Chest: chest wall non-tender, lungs clear Breasts: no masses Cardiovascular/Chest: regular rhythm Abdomen: normal bowel sounds Genitourinary/Rectal: normal genital exam Extremities: normal range of motion Skin Exam: normal pigmentation Last 24 Hour Vital Signs Date Time Temp Pulse Resp B/P (MAP) Pulse Ox O2 Delivery O2 Flow Rate FiO2 08/03/19 11:22 Room Air 08/03/19 10:00 82 99/66 08/03/19 08:00 98.1 82 20 99/66 (77) 100 08/03/19 04:00 98.1 74 17 132/70 (90) 99 08/03/19 04:00 81 08/03/19 00:00 97.5 82 16 141/94 (110) 100 08/02/19 23:00 Room Air 08/02/19 22:45 98.1 96 15 109/68 100 Room Air 08/02/19 19:46 98.1 96 15 109/68 100 Room Air 08/02/19 18:57 98.1 100 19 138/84 100 Room Air 08/02/19 18:57 100 19 Room Air 08/02/19 18:47 98.1 71 16 124/81 (95) 100 Room Air Intake and Output 08/02/19 08/03/19 19:00 07:00 Intake Total 480 ml Output Total 1400 ml Balance -920 ml Intake Oral 480 ml Output Urine Total 1400 ml # Voids 2 Laboratory Tests Test 08/02/19 19:15 08/02/19 20:05 08/03/19 05:52 White Blood Count 11.6 K/UL (4.8-10.8) H 9.5 K/UL (4.8-10.8) Red Blood Count 4.50 M/UL (4.70-6.10) L 4.18 M/UL (4.70-6.10) L Hemoglobin 13.0 G/DL (14.2-18.0) L 12.3 G/DL (14.2-18.0) L Hematocrit 39.5 % (42.0-52.0) L 37.0 % (42.0-52.0) L Mean Corpuscular Volume 88 FL (80-99) 88 FL (80-99) Mean Corpuscular Hemoglobin 28.8 PG (27.0-31.0) 29.4 PG (27.0-31.0) Mean Corpuscular Hemoglobin Concent 32.8 G/DL (32.0-36.0) 33.2 G/DL (32.0-36.0) Red Cell Distribution Width 13.6 % (11.6-14.8) 13.5 % (11.6-14.8) Platelet Count 210 K/UL (150-450) 187 K/UL (150-450) Mean Platelet Volume 9.3 FL (6.5-10.1) 8.5 FL (6.5-10.1) Neutrophils (%) (Auto) 72.2 % (45.0-75.0) 65.4 % (45.0-75.0) Lymphocytes (%) (Auto) 13.8 % (20.0-45.0) L 21.4 % (20.0-45.0) Monocytes (%) (Auto) 11.4 % (1.0-10.0) H 9.4 % (1.0-10.0) Eosinophils (%) (Auto) 1.6 % (0.0-3.0) 2.8 % (0.0-3.0) Basophils (%) (Auto) 0.9 % (0.0-2.0) 1.0 % (0.0-2.0) Sodium Level 146 MMOL/L (136-145) H 145 MMOL/L (136-145) Potassium Level 3.9 MMOL/L (3.5-5.1) 3.6 MMOL/L (3.5-5.1) Chloride Level 112 MMOL/L (98-107) H 111 MMOL/L (98-107) H Carbon Dioxide Level 25 MMOL/L (21-32) 24 MMOL/L (21-32) Anion Gap 9 mmol/L (5-15) 10 mmol/L (5-15) Blood Urea Nitrogen 33 mg/dL (7-18) H 28 mg/dL (7-18) H Creatinine 2.0 MG/DL (0.55-1.30) H 1.7 MG/DL (0.55-1.30) H Estimat Glomerular Filtration Rate 40.5 mL/min (>60) 48.8 mL/min (>60) Glucose Level 106 MG/DL (74-106) 85 MG/DL (74-106) Calcium Level 8.8 MG/DL (8.5-10.1) 9.2 MG/DL (8.5-10.1) Total Bilirubin 0.4 MG/DL (0.2-1.0) 0.5 MG/DL (0.2-1.0) Aspartate Amino Transf (AST/SGOT) 34 U/L (15-37) 27 U/L (15-37) Alanine Aminotransferase (ALT/SGPT) 37 U/L (12-78) 32 U/L (12-78) Alkaline Phosphatase 111 U/L (46-116) 99 U/L (46-116) Troponin I 0.036 ng/mL (0.000-0.056) 0.017 ng/mL (0.000-0.056) Pro-B-Type Natriuretic Peptide 1506 pg/mL (0-125) H Total Protein 6.0 G/DL (6.4-8.2) L 6.0 G/DL (6.4-8.2) L Albumin 2.8 G/DL (3.4-5.0) L 2.7 G/DL (3.4-5.0) L Globulin 3.2 g/dL 3.3 g/dL Albumin/Globulin Ratio 0.9 (1.0-2.7) L 0.8 (1.0-2.7) L Urine Opiates Screen Negative (NEGATIVE) Urine Barbiturates Screen Negative (NEGATIVE) Phencyclidine (PCP) Screen Negative (NEGATIVE) Urine Amphetamines Screen Negative (NEGATIVE) Urine Benzodiazepines Screen Negative (NEGATIVE) Urine Cocaine Screen Negative (NEGATIVE) Urine Marijuana (THC) Screen Negative (NEGATIVE) Phosphorus Level 2.5 MG/DL (2.5-4.9) Magnesium Level 2.1 MG/DL (1.8-2.4) Height (Feet): 5 Height (Inches): 10.00 Weight (Pounds): 213 Medications Current Medications Medications (Trade) Dose Ordered Sig/Artie Route PRN Reason Start Time Stop Time Status Last Admin Dose Admin Acetaminophen (Tylenol) 650 mg Q6H PRN ORAL Mild Pain/Temp > 100.5 08/03/19 00:00 09/02/19 00:00 Acetaminophen/ Hydrocodone Bitart ([place] 5/325) 1 tab Q6H PRN ORAL For Pain 08/03/19 00:00 08/10/19 00:00 Aspirin (ASA) 81 mg DAILY ORAL 08/03/19 09:00 09/02/19 08:59 08/03/19 09:59 Carvedilol (Coreg) 3.125 mg EVERY 12 HOURS ORAL 08/03/19 09:00 09/02/19 08:59 08/03/19 10:00 Furosemide (Lasix) 40 mg EVERY 12 HOURS IV 08/03/19 09:00 09/02/19 08:59 08/03/19 10:00 Heparin Sodium (Porcine) (Heparin 5000 units/ml) 5,000 units EVERY 8 HOURS SUBQ 08/03/19 06:00 09/02/19 05:59 08/03/19 05:46 Potassium Chloride (K-Dur) 20 meq DAILY ORAL 08/03/19 09:00 09/02/19 08:59 08/03/19 09:59 Assessment/Plan Problem List: (1) Peripheral edema ICD Codes: R60.9 - Edema, unspecified SNOMED: 273370569 (2) Atrial fibrillation ICD Codes: I48.91 - Unspecified atrial fibrillation SNOMED: 88513687 (3) Chronic renal insufficiency ICD Codes: N18.9 - Chronic kidney disease, unspecified SNOMED: 434868534 (4) Kidney mass ICD Codes: N28.89 - Other specified disorders of kidney and ureter SNOMED: 468114263 (5) Chronic leg pain ICD Codes: M79.606 - Pain in leg, unspecified; G89.29 - Other chronic pain SNOMED: 69658596, 83153286 (6) HTN (hypertension) ICD Codes: I10 - Essential (primary) hypertension SNOMED: 79351492 Assessment/Plan: iv diuretics cardiology to see echo venous doppler of legs symptomatic treatment check electrolytes renal evaluation cardio evaluation. Abbey Espinoza MD Aug 03, 2019 12:47
--- NOTE | 2019-08-03 14:51 | NUR ---
CARDIOLOGY : 2-D ECHO REPORT Mild left ventricular enlargement . Global left ventricular hypokinesis . Left ventricular ejection fraction estimated to be 35-40 %. No evidence of left ventricular hypertrophy. No evidence of pericardial effusion. Mild bi-atrial enlargement . Right ventricular chamber sizes is within normal limits. Focal aortic valve sclerosis with adequate cusp excursion. Thickened mitral valve leaflets with normal excursion. Mitral annulus and aortic root calcification. Normal pulmonic valve structure. Normal tricuspid valve structure. IVC dilated at 2.2 cm without physiologic collapse suggestive of increased RA pressure. A color flow and spectral Doppler study was performed and revealed: Trace aortic regurgitation. Mild to moderate mitral regurgitation. Mitral inflow velocities indicates possible pseudo normalization pattern implying moderately elevated left atrial pressure (Grade II ). Mild tricuspid regurgitation. Tricuspid systolic velocities suggests peak right ventricular systolic pressure of 35 mmHg.
[2019-08-03 16:00] VITALS: BP 115/80
--- NOTE | 2019-08-03 17:09 | Cardiology Progress Note ---
Assessment/Plan Assessment/Plan [id number] full note dictated tansient tachy adn byron keep on the same medication he takes at home except for iv diuretic he has previously been on toprol xl 100 dialy ecotrin 81 mg daiy , clonidine 0.2 mg bid adn refused anticoagulation for stroke prevention Objective Last 24 Hour Vital Signs Date Time Temp Pulse Resp B/P (MAP) Pulse Ox O2 Delivery O2 Flow Rate FiO2 08/03/19 16:00 73 08/03/19 12:00 98.0 80 20 101/61 (74) 99 08/03/19 12:00 74 08/03/19 11:22 Room Air 08/03/19 10:00 82 99/66 08/03/19 08:00 87 08/03/19 08:00 98.1 82 20 99/66 (77) 100 08/03/19 04:00 98.1 74 17 132/70 (90) 99 08/03/19 04:00 81 08/03/19 00:00 97.5 82 16 141/94 (110) 100 08/02/19 23:00 Room Air 08/02/19 22:45 98.1 96 15 109/68 100 Room Air 08/02/19 19:46 98.1 96 15 109/68 100 Room Air 08/02/19 18:57 98.1 100 19 138/84 100 Room Air 08/02/19 18:57 100 19 Room Air 08/02/19 18:47 98.1 71 16 124/81 (95) 100 Room Air Intake and Output 08/02/19 08/03/19 18:59 06:59 Intake Total 480 ml Output Total 1400 ml Balance -920 ml Intake Oral 480 ml Output Urine Total 1400 ml # Voids 2 Laboratory Tests Test 08/02/19 19:15 08/02/19 20:05 08/03/19 05:52 White Blood Count 11.6 K/UL (4.8-10.8) H 9.5 K/UL (4.8-10.8) Red Blood Count 4.50 M/UL (4.70-6.10) L 4.18 M/UL (4.70-6.10) L Hemoglobin 13.0 G/DL (14.2-18.0) L 12.3 G/DL (14.2-18.0) L Hematocrit 39.5 % (42.0-52.0) L 37.0 % (42.0-52.0) L Mean Corpuscular Volume 88 FL (80-99) 88 FL (80-99) Mean Corpuscular Hemoglobin 28.8 PG (27.0-31.0) 29.4 PG (27.0-31.0) Mean Corpuscular Hemoglobin Concent 32.8 G/DL (32.0-36.0) 33.2 G/DL (32.0-36.0) Red Cell Distribution Width 13.6 % (11.6-14.8) 13.5 % (11.6-14.8) Platelet Count 210 K/UL (150-450) 187 K/UL (150-450) Mean Platelet Volume 9.3 FL (6.5-10.1) 8.5 FL (6.5-10.1) Neutrophils (%) (Auto) 72.2 % (45.0-75.0) 65.4 % (45.0-75.0) Lymphocytes (%) (Auto) 13.8 % (20.0-45.0) L 21.4 % (20.0-45.0) Monocytes (%) (Auto) 11.4 % (1.0-10.0) H 9.4 % (1.0-10.0) Eosinophils (%) (Auto) 1.6 % (0.0-3.0) 2.8 % (0.0-3.0) Basophils (%) (Auto) 0.9 % (0.0-2.0) 1.0 % (0.0-2.0) Sodium Level 146 MMOL/L (136-145) H 145 MMOL/L (136-145) Potassium Level 3.9 MMOL/L (3.5-5.1) 3.6 MMOL/L (3.5-5.1) Chloride Level 112 MMOL/L (98-107) H 111 MMOL/L (98-107) H Carbon Dioxide Level 25 MMOL/L (21-32) 24 MMOL/L (21-32) Anion Gap 9 mmol/L (5-15) 10 mmol/L (5-15) Blood Urea Nitrogen 33 mg/dL (7-18) H 28 mg/dL (7-18) H Creatinine 2.0 MG/DL (0.55-1.30) H 1.7 MG/DL (0.55-1.30) H Estimat Glomerular Filtration Rate 40.5 mL/min (>60) 48.8 mL/min (>60) Glucose Level 106 MG/DL (74-106) 85 MG/DL (74-106) Calcium Level 8.8 MG/DL (8.5-10.1) 9.2 MG/DL (8.5-10.1) Total Bilirubin 0.4 MG/DL (0.2-1.0) 0.5 MG/DL (0.2-1.0) Aspartate Amino Transf (AST/SGOT) 34 U/L (15-37) 27 U/L (15-37) Alanine Aminotransferase (ALT/SGPT) 37 U/L (12-78) 32 U/L (12-78) Alkaline Phosphatase 111 U/L (46-116) 99 U/L (46-116) Troponin I 0.036 ng/mL (0.000-0.056) 0.017 ng/mL (0.000-0.056) Pro-B-Type Natriuretic Peptide 1506 pg/mL (0-125) H Total Protein 6.0 G/DL (6.4-8.2) L 6.0 G/DL (6.4-8.2) L Albumin 2.8 G/DL (3.4-5.0) L 2.7 G/DL (3.4-5.0) L Globulin 3.2 g/dL 3.3 g/dL Albumin/Globulin Ratio 0.9 (1.0-2.7) L 0.8 (1.0-2.7) L Urine Opiates Screen Negative (NEGATIVE) Urine Barbiturates Screen Negative (NEGATIVE) Phencyclidine (PCP) Screen Negative (NEGATIVE) Urine Amphetamines Screen Negative (NEGATIVE) Urine Benzodiazepines Screen Negative (NEGATIVE) Urine Cocaine Screen Negative (NEGATIVE) Urine Marijuana (THC) Screen Negative (NEGATIVE) Phosphorus Level 2.5 MG/DL (2.5-4.9) Magnesium Level 2.1 MG/DL (1.8-2.4) Fan Clement MD Aug 03, 2019 17:09
--- NOTE | 2019-08-03 17:09 | History & Physical ---
History and Physical History & Physicial Dictated for Int Med-Dr Alaniz no. [id number]. Rodney Avilez MD Aug 03, 2019 17:09
[2019-08-03] MEDS: Docusate 100mg cap ORAL SCH (17:46)
[2019-08-03 20:00] VITALS: BP 124/76
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
--- NOTE | 2019-08-03 23:46 | History and Physical Report ---
DATE OF ADMISSION: 08/02/2019 CHIEF COMPLAINT: The patient is a 68-year-old male, who presents with a chief complaint of shortness of breath. HISTORY OF PRESENT ILLNESS: The patient has a history of chronic congestive heart failure. The patient was evaluated by Dr. Mariano Alaniz on August 02, 2019. The patient was found to have edema of bilateral lower extremities. The patient was sent to [facility] for evaluation. The patient is admitted with edema of bilateral lower extremities to rule out acute congestive heart failure. REVIEW OF SYSTEMS: CONSTITUTIONAL: The patient denies weight loss or weight gain. The patient denies fevers or chills. HEENT: The patient denies ear or throat pain. The patient denies headache. CARDIOVASCULAR: The patient denies palpitations or chest pain. CHEST: The patient denies wheezes. The patient does complain of shortness of breath as above. ABDOMEN: The patient denies nausea, vomiting, diarrhea, or constipation. GENITOURINARY: The patient denies dysuria or increased frequency of urination. NEUROMUSCULAR: The patient complains of bilateral lower extremity swelling as above. The patient denies seizures or generalized weakness. PAST MEDICAL HISTORY: Significant for, 1. Congestive heart failure. 2. Hypertension. 3. Chronic atrial fibrillation. 4. Gout. 5. History of benign renal mass. PAST SURGICAL HISTORY: Significant for, 1. 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 2. Left rotator cuff repair. CURRENT MEDICATIONS: 1. Allopurinol 300 mg one tablet p.o. daily. 2. Aspirin 81 mg p.o. daily. 3. Clonidine 0.2 mg p.o. q.8 hours. 4. Colchicine 0.6 mg p.o. daily. 5. Furosemide 40 mg p.o. twice daily. 6. Potassium chloride 20 mEq p.o. daily. ALLERGIES: Diltiazem. SOCIAL HISTORY: The patient is a and lives alone. The patient lives in [place], [place]. The patient denies tobacco use having quit 49 years ago. The patient admits to rare alcohol use. PHYSICAL EXAMINATION: VITAL SIGNS: Temperature 98.1, respirations 16, pulse 71, and blood pressure 124/81. GENERAL: The patient is a well-developed and well-nourished male, in no apparent distress. HEENT: Eyes, pupils are equal and responsive to light and accommodation. Extraocular movements are intact. NECK: Supple without lymphadenopathy. CHEST: Lungs are clear to auscultation bilaterally without wheezes or rales. CARDIOVASCULAR: Regular rhythm and rate. S1, S2 are normal without murmurs, rubs, or gallops. ABDOMEN: Soft, nontender, and nondistended. Positive bowel sounds. No evidence of hepatosplenomegaly. Currently, no rebound or guarding noted. EXTREMITIES: Negative for clubbing, cyanosis, or edema. RECTAL/GENITAL: Not performed. NEUROLOGIC: Cranial nerves II through XII are grossly intact without focal deficits. Motor strength is 5/5 bilaterally. Deep tendon reflexes are 2+ plantar. LABORATORY STUDIES: WBC 11.6, hemoglobin 13.3, hematocrit 39.5, and platelets 210,000. Sodium 146, potassium 3.9, chloride 112, CO2 25, BUN 33, creatinine 2.0, and glucose 106. Troponin 0.036. BNP elevated at 1506. Chest x-ray is reported as no acute disease. ASSESSMENT: This is a 68-year-old male. 1. Shortness of breath. 2. Edema of the bilateral lower extremities. 3. Acute on chronic congestive heart failure. 4. Hypertension. 5. Gout. 6. History of renal mass. TREATMENT: 1. Shortness of breath/leg edema/congestive heart failure. Cardiology consultation has been obtained with Dr. Fan Clement. The patient is currently receiving intravenous Lasix. We will follow recommendations of Cardiology. The patient did have an echocardiogram during the previous hospitalization. 2. Hypertension. Continue clonidine as above. 3. Gout. Continue allopurinol as above. 4. Benign renal mass. Rodney Avilez M.D. DR: CAPRICE JOB#: [id number] CC:
[2019-08-04] VITALS: BP 104/73
--- NOTE | 2019-08-04 03:45 | Consultation ---
DATE OF CONSULTATION: 08/03/2019 CARDIOLOGY CONSULTATION CONSULTING PHYSICIAN: Fan Clement M.D. REFERRING PHYSICIAN: Rodney Avilez M.D. and Mariano Alaniz M.D. REASON FOR REFERRAL: Bradycardia. HISTORY OF PRESENT ILLNESS: This is an elderly male who I have seen one time some time ago. The patient with history of chronic anticoagulation, has previously declined anticoagulation according to the [facility]' records. The patient has had a history of possible congestive heart failure and gets admitted every now and then because of significant swelling in his legs and he presents to the hospital because of that particular fact diuretics, he does improve and eventually goes home. Last time I saw was back in December of 2018. He has had hospitalizations at [facility] since then for other reasons and had seen another deposit refund clerk at [facility] as well. He denies any chest pain, pressure, tightness, or discomfort in his chest. He does ambulate, does not have any shortness of breath with activity. He does not have any PND. He uses one pillow. There is no dizziness or lightheadedness on standing. He does not have any heart pounding or palpitations. No syncope or near syncope. PAST MEDICAL HISTORY: Positive for history of atrial fibrillation and congestive heart failure at times with rapid ventricular response with spontaneous conversion to sinus rhythm, systemic hypertension, coronary artery disease, obesity, chronic renal insufficiency, gastroesophageal reflux disease, detached retina, erectile dysfunction, gout, chronic obstructive pulmonary disease, and rotator cuff injury. PAST SURGICAL HISTORY: Rotator cuff injury. SOCIAL HISTORY: Does not smoke. Does not drink alcohol beverages. No drugs. The patient is . He does a lot of walking he states. He has had 2 wives and number of 12 kids and 18 grandchildren and great grandchildren. REVIEW OF SYSTEMS: GASTROINTESTINAL: He denies. GENITOURINARY: He denies. PULMONARY: He denies. CONSTITUTIONAL: He denies. NEUROLOGIC: He denies. PHYSICAL EXAMINATION: GENERAL: Shows to be an overweight elderly gentleman, in no apparent distress. NECK: Supple. No jugular venous distention. LUNGS: Decreased breath sounds bilaterally. CARDIAC: Irregularly irregular. No heaves, thrills, or gallops noted. ABDOMEN: Soft, nontender. Positive bowel sounds. EXTREMITIES: A 1 to 2+ edema of the lower extremities all the way up to his knees. NEUROLOGICAL: He is awake, alert, and oriented. LABORATORY AND DIAGNOSTIC DATA: Laboratory values, white count of 9.5, hemoglobin 12, and platelet count of 187. Sodium is 145, potassium 3.6, chloride 111, bicarbonate 24, BUN 20, creatinine 1.7, glucose of 85. Liver function tests are relatively normal. His troponin 0.036 and 0.017. His albumin is 2.7. His TSH in June was 0.363. His coags, INR of 1.0 and PTT of 31. His tox screen on 08/02/2019 was negative. His urinalysis looks negative as well. He has had a chest x-ray on 08/02/2019, the report of which shows no acute processes per the emergency room physician's note. His last echocardiogram was in December 2018 here. At that time, it showed ejection fraction of 20% to 25%, moderate MR, and PA pressure at that time was 20. EKG shows atrial fibrillation. Ventricular response appears to be variable, but controlled. Telemetry data shows some episodes of nonsustained ventricular tachycardia. He has had atrial fibrillation with rapid ventricular response and he had some episodes of bradycardia. The heart rates are dropping down into he 45 range, but very short period of time, nothing sustained. He had an echocardiogram, preliminary report of which indicates EF of 35% to 40% and dilated IVC and PA pressure of 35. Right ventricle does not appear to be enlarged at least on the preliminary report of the echocardiogram. ASSESSMENT AND PLAN: 1. Acute systolic heart failure on top of chronic heart failure. 2. Permanent atrial fibrillation. 3. Transient bradycardia. 4. Transient tachycardia. 5. History of gout. 6. Edema, secondary to above. 7. Renal insufficiency, basically chronic in nature. This patient was seen in cardiac consultation. The patient has some episodes of bradycardia, but not sustained. He should be continued on his usual medication dosages. He did have some episodes of rapid rhythm earlier on the telemetry monitoring and the episode of tachycardia is not significant. He is not on anticoagulation and the [facility]' data indicates that he has refused anticoagulation. He tells me he is taking something, but his chart is only suggesting that aspirin is the only medication that he takes for antiplatelet agents. He is not on DO inhibitors because of his renal insufficiency. He does have a remote history of coronary artery disease that the details of which are not known. He has been on heart failure medication, beta-blockers only. He is taking clonidine 0.2 mg twice a day apparently for his heart failure. Diuretics will be continued. The patient will be observed on telemetry. He may be prone to sick sinus syndrome if he does not have it now, maybe developing in the future. During his last hospitalization here back in December when I last saw him, he was taking Coreg 12.5 mg twice a day in addition to Cozaar 50 mg twice a day, but I think that medication was discontinued and they are changed by somebody down the line. At that time, he had a creatinine of 1.8. The patient has no evidence of myonecrosis and will be followed as an inpatient. Fan Clement M.D. DR: MIRTHA JOB#: [id number] CC:
[2019-08-04 04:00] VITALS: BP 102/72
[2019-08-04] MEDS: Heparin 5000 units/ml inj SUBQ SCH (05:23)
--- NOTE | 2019-08-04 06:44 | NUR ---
NURSE NOTES: Could not establish IV access. Notified Dr. Espinoza, ordered to change lasix to po.
[2019-08-04 06:54] LABS: BASOPHILS % (AUTO) 0.9 % (0.0-2.0); EOSINOPHILS % (AUTO) 4.1 % (0.0-3.0); HEMATOCRIT 38.7 % (42.0-52.0); HEMOGLOBIN 12.4 G/DL (14.2-18.0); LYMPHOCYTES % (AUTO) 23.2 % (20.0-45.0); MEAN CORPUSCULAR VOLUME 88 FL (80-99); MONOCYTES % (AUTO) 10.2 % (1.0-10.0); NEUTROPHILS % (AUTO) 61.8 % (45.0-75.0); PLATELET COUNT 214 K/UL (150-450); RED BLOOD COUNT 4.38 M/UL (4.70-6.10); RED CELL DISTRIBUTION WIDTH 13.8 % (11.6-14.8); WHITE BLOOD COUNT 7.7 K/UL (4.8-10.8)
[2019-08-04 07:29] LABS: ANION GAP 6 mmol/L (5-15); BLOOD UREA NITROGEN 23 mg/dL (7-18); CARBON DIOXIDE 26 MMOL/L (21-32); CHLORIDE 111 MMOL/L (98-107); CREATININE 1.6 MG/DL (0.55-1.30); POTASSIUM 3.7 MMOL/L (3.5-5.1); SODIUM 143 MMOL/L (136-145)
--- NOTE | 2019-08-04 07:45 | NUR ---
HAND-OFF: Report given to Arun TSAI.
[2019-08-04 08:00] VITALS: BP 107/68
--- NOTE | 2019-08-04 08:17 | NUR ---
CASE MANAGEMENT: INITIAL REVIEW 68YR OLD MALE FROM HOME CC: EDEMA . BILATERAL SWOLLEN LEGS FOR COUPLE OF DAYS SI:CHF . A-FIB 98.1 71 16 124/81 100% ON RA WBC 11.6 NA+ 146 CL-112 BUN 33 CREAT 2.0 BNP 1506 IS:IV LASIX X1 CHEST X-RAY \: 2E TELE UNIT PLAN: US ABD 2D ECHO CHEST X-RAY CASE MANAGEMENT: REVIEW 08/04/2019 SI:CHF . ATRIAL FIBRILLATION . EDEMA BILATERAL EXTREMITIES 97.9 73 18 102/72 98% ON RA CL-111 BUN 23 CREAT 1.6 BNP 1604 IS:HEPARIN SQ Q8HR COREG PO TID K-DUR PO QD ASA PO QD LASIX PO BID \: 2E TELE UNIT PLAN: 2D ECHO
[2019-08-04] MEDS: Aspirin Baby 81mg ORAL SCH (08:23)
[2019-08-04] MEDS: Docusate 100mg cap ORAL SCH (08:23)
[2019-08-04] MEDS ORDERED: Furosemide 80mg tab ORAL SCH (09:00)
[2019-08-04 12:00] VITALS: BP 139/80
--- NOTE | 2019-08-04 12:13 | Pulmonology Progress Note ---
Assessment/Plan Problems: (1) Peripheral edema (2) Atrial fibrillation (3) Chronic renal insufficiency (4) Kidney mass (5) Chronic leg pain (6) HTN (hypertension) Assessment/Plan diuresing well heart rate controlled continue current meds cardiology note apprecited dc home since pt insisting on going home Subjective ROS Limited/Unobtainable: No Allergies: Coded Allergies: DILTIAZEM (Verified Allergy, Severe, Anaphylaxis, 07/03/19) Uncoded Allergies: Electrode (Allergy, Intermediate, Icting, 06/27/19) Objective Last 24 Hour Vital Signs Date Time Temp Pulse Resp B/P (MAP) Pulse Ox O2 Delivery O2 Flow Rate FiO2 08/04/19 09:00 Room Air 08/04/19 08:35 100 107/74 08/04/19 08:00 136 08/04/19 08:00 97.0 100 18 107/68 (81) 98 08/04/19 04:00 97.9 83 18 102/72 (82) 98 08/04/19 04:00 73 08/04/19 00:00 94 08/04/19 00:00 97.9 93 20 104/73 (83) 100 08/03/19 21:40 78 124/76 08/03/19 21:00 Room Air 08/03/19 20:30 141 08/03/19 20:26 176 08/03/19 20:00 98.1 78 19 124/76 (92) 96 08/03/19 16:00 73 08/03/19 16:00 97.6 88 20 115/80 (92) 99 Intake and Output 08/03/19 08/04/19 19:00 07:00 Intake Total 400 ml 720 ml Balance 400 ml 720 ml Intake Oral 400 ml 720 ml # Voids 2 3 # Bowel Movements 1 1 General Appearance: WD/WN HEENT: normocephalic, atraumatic Respiratory/Chest: chest wall non-tender, lungs clear Cardiovascular: normal peripheral pulses, normal rate Abdomen: normal bowel sounds, soft, non tender, no organomegaly Neurologic/Psychiatric: access services assistant 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 normal, abnormal gait Laboratory Tests 08/04/19 05:10: White Blood Count 7.7, Red Blood Count 4.38L, Hemoglobin 12.4L, Hematocrit 38.7L , Mean Corpuscular Volume 88, Mean Corpuscular Hemoglobin 28.4, Mean Corpuscular Hemoglobin Concent 32.1, Red Cell Distribution Width 13.8, Platelet Count 214, Mean Platelet Volume 8.2, Neutrophils (%) (Auto) 61.8, Lymphocytes (% ) (Auto) 23.2, Monocytes (%) (Auto) 10.2H, Eosinophils (%) (Auto) 4.1H, Basophils (%) (Auto) 0.9, Sodium Level 143, Potassium Level 3.7, Chloride Level 111H, Carbon Dioxide Level 26, Anion Gap 6, Blood Urea Nitrogen 23H, Creatinine 1.6H, Estimat Glomerular Filtration Rate 52.4, Glucose Level 81, Calcium Level 9.0, Pro-B-Type Natriuretic Peptide 1604H Current Medications Medications (Trade) Dose Ordered Sig/Artie Route PRN Reason Start Time Stop Time Status Last Admin Dose Admin Acetaminophen (Tylenol) 650 mg Q6H PRN ORAL Mild Pain/Temp > 100.5 08/03/19 00:00 09/02/19 00:00 Acetaminophen/ Hydrocodone Bitart ([place] 5/325) 1 tab Q6H PRN ORAL For Pain 08/03/19 00:00 08/10/19 00:00 Aspirin (ASA) 81 mg DAILY ORAL 08/03/19 09:00 09/02/19 08:59 08/04/19 08:23 Carvedilol (Coreg) 3.125 mg EVERY 12 HOURS ORAL 08/03/19 09:00 09/02/19 08:59 08/04/19 08:35 Docusate Sodium (Colace) 100 mg TWICE A DAY ORAL 08/03/19 18:00 09/02/19 17:59 08/04/19 08:23 Furosemide (Lasix) 80 mg EVERY 12 HOURS ORAL 08/04/19 09:00 09/03/19 08:59 08/04/19 08:24 Heparin Sodium (Porcine) (Heparin 5000 units/ml) 5,000 units EVERY 8 HOURS SUBQ 08/03/19 06:00 09/02/19 05:59 08/04/19 05:23 Potassium Chloride (K-Dur) 20 meq DAILY ORAL 08/03/19 09:00 09/02/19 08:59 08/04/19 08:24 Abbey Espinoza MD Aug 04, 2019 12:13
[2019-08-04] MEDS ORDERED: NS 275ml ONE (14:54)
[2019-08-04] MEDS ORDERED: Tubing Blood Filter IV ONE (14:54)
--- NOTE | 2019-08-04 14:54 | NUR ---
patient discharged with all his belonging as ordered. no c/o pain.
--- NOTE | 2019-08-04 15:03 | NUR ---
*-* INSURANCE -* ALL AVAILABLE CLINICALS AND REVIEWS HAVE BEEN FAXED TO: [facility] P- [phone] F- [phone]...REVIEW/CLINICAL
--- NOTE | 2019-08-04 16:02 | Discharge Summary ---
Discharge Summary Hospital Course Date of Admission Aug 02, 2019 at 19:28 Date of Discharge Aug 04, 2019 at 14:55 Admitting Diagnosis chf HPI Robin Charles is a 68 year old male who was admitted on Aug 02, 2019 at 19 :28 for Congestive Heart Failure Hospital Course patient was seen and exam at bedside Less SOB, less leg edema Last 24 Hour Vital Signs Date Time Temp Pulse Resp B/P (MAP) Pulse Ox O2 Delivery O2 Flow Rate FiO2 08/04/19 12:00 98.0 86 18 139/80 (99) 98 08/04/19 09:00 Room Air 08/04/19 08:35 100 107/74 08/04/19 08:00 136 08/04/19 08:00 97.0 100 18 107/68 (81) 98 08/04/19 04:00 97.9 83 18 102/72 (82) 98 08/04/19 04:00 73 08/04/19 00:00 94 08/04/19 00:00 97.9 93 20 104/73 (83) 100 08/03/19 21:40 78 124/76 08/03/19 21:00 Room Air 08/03/19 20:30 141 08/03/19 20:26 176 08/03/19 20:00 98.1 78 19 124/76 (92) 96 Discharge Discharge Disposition Patient was discharged to Mariano Alaniz MD Aug 04, 2019 16:02
--- NOTE | 2019-08-04 19:30 | Discharge Summary ---
DATE OF ADMISSION: 08/02/2019 DATE OF DISCHARGE: 08/04/2019 HISTORY AND HOSPITAL COURSE: This is a 68 years old very delightful gentleman with past medical history significant for paroxysmal atrial fibrillation, hypertension, congestive heart failure, renal mass, who presented to the emergency department complaining about pedal edema and shortness of breath. Shortly after initial evaluation, the patient was admitted to the hospital with acute congestive heart failure. Throughout the hospital course, the patient was followed by Dr. Clement from Cardiology and Dr. Espinoza from Pulmonary, Critical Care. The patient is started on the Lasix IV. His status gradually improved and subsequently was discharged home today to be followed up as outpatient in my office within one week. FINAL DIAGNOSES: 1. Acute CHF exacerbation on chronic. 2. Noncompliance with medication. 3. Paroxysmal atrial fibrillation. 4. Gout. 5. Renal mass. MEDICATION ON DISCHARGE: Continue discharge medication list. ACTIVITY: As tolerated. DIET: Would be cardiac diet. The patient was advised to follow up in my office within one week. Mariano Alaniz M.D. DR: VICENTE JOB#: [id number] CC:
--- NOTE | 2019-08-07 14:42 | NUR ---
*-* INSURANCE -* DISCHARGE SUMMARY HAS BEEN FAXED TO: [facility] P- [phone] F- [phone]...REVIEW/CLINICAL Addendum: 08/07/19 at 1444 by LEN CONLEY [facility] F:[phone]
== END 2019-08-04 14:55 | disposition home or self-care (01) | DRG 291 ==
LOC: EMR 19:00 → 2E 19:28 → EDBEDREQ 22:14 → 2E 08-03 20:37
DX: I13.0 Hypertensive heart and chronic kidney disease with heart failure and stage 1 through stage 4 chronic kidney disease, or unspecified chronic kidney disease (principal); I50.23 Acute on chronic systolic (congestive) heart failure; I47.2 Ventricular tachycardia; I48.0 Paroxysmal atrial fibrillation; M10.9 Gout, unspecified; Z88.8 Allergy status to other drugs, medicaments and biological substances; N18.9 Chronic kidney disease, unspecified; Z91.14 Patient's other noncompliance with medication regimen; J44.9 Chronic obstructive pulmonary disease, unspecified; Z79.82 Long term (current) use of aspirin; N28.89 Other specified disorders of kidney and ureter; R00.1 Bradycardia, unspecified
CPT/HCPCS: 36415; 71045; 80048; 80053; 80307; 83735; 83880; 84100; 84484; 85025; 93005; 93306; 96374; 99285; J8499

== ENCOUNTER 2019-08-10 11:57 | Emergency (ER) | payer MEDICARE, MEDICAID ==
[~2019-08-10] VITALS: Ht 177.8 cm; Wt 99.8 kg
[2019-08-10 12:30] VITALS: BP 138/93
--- NOTE | 2019-08-10 12:39 | Emergency Room Report ---
History of Present Illness General Chief Complaint: Pain Source: Patient Present Illness HPI 68-year-old male with history of CHF pedal edema who has been here multiple times here complaining of worsening swelling in his right leg after he got pedicure yesterday. Patient has been in and out of our hospital as well as [facility], being seen by Dr. Alaniz, always requesting a Toradol injection. I explained the patient that we cannot give any more Toradol injection at the patient's age, kidney function, and CHF. Denies all other associated symptoms, chest pain, shortness of breath, palpitation, no other associated symptoms. Was recently discharged from [facility] for CHF exacerbation. Reports that he is compliant taking his medication. Allergies: Coded Allergies: DILTIAZEM (Verified Allergy, Severe, Anaphylaxis, 07/03/19) Uncoded Allergies: Electrode (Allergy, Intermediate, Icting, 06/27/19) Patient History Past Medical History: see triage record Past Surgical History: none Pertinent Family History: none Immunizations: UTD Reviewed Nursing Documentation: PMH: Agreed; PSxH: Agreed Nursing Documentation-PMH Past Medical History: No History, Except For Hx Cardiac Problems: Yes - Afib Hx Hypertension: Yes Hx Pacemaker: No - retina detachment in the rigth eye Hx Asthma: No Hx COPD: No Hx Diabetes: No Hx Cancer: No Hx Gastrointestinal Problems: No Hx Dialysis: No Hx Neurological Problems: No Hx Cerebrovascular Accident: No Hx Seizures: No Review of Systems All Other Systems: negative except mentioned in HPI Physical Exam Vital Signs Date Time Temp Pulse Resp B/P (MAP) Pulse Ox O2 Delivery O2 Flow Rate FiO2 08/10/19 12:18 99.1 56 18 138/93 (108) 97 Room Air Sp02 EP Interpretation: reviewed, normal General Appearance: no apparent distress, alert, GCS 15, non-toxic Head: normocephalic, atraumatic Eyes: bilateral eye normal inspection, bilateral eye PERRL ENT: hearing grossly normal, normal pharynx, no angioedema, normal voice Neck: full range of motion, supple/symm/no masses Respiratory: chest non-tender, lungs clear, normal breath sounds, speaking full sentences Cardiovascular #1: regular rate, rhythm, no edema Cardiovascular #2: 2+ carotid (R), 2+ carotid (L), 2+ radial (R), 2+ radial (L) , 2+ dorsalis pedis (R), 2+ dorsalis pedis (L) Gastrointestinal: normal bowel sounds, non tender, soft, non-distended, no guarding, no rebound Rectal: deferred Genitourinary: no CVA tenderness Musculoskeletal: back normal, no calf tenderness, swelling - Bilateral lower extremities however appears to be the same amount of swelling at last time patient was examined by me here 3 days ago Neurologic: alert, motor strength/tone normal, oriented x3, sensory intact, responsive, speech normal Psychiatric: judgement/insight normal, memory normal, mood/affect normal, no suicidal/homicidal ideation Skin: no rash Lymphatic: no adenopathy Medical Decision Making PA Attestation All my diagnosis and treatment plans were reviewed ad discussed with my supervising physician Dr. See Diagnostic Impression: Primary Impression: Pedal edema ER Course 68-year-old male with history of CHF pedal edema who has been here multiple times here complaining of worsening swelling in his right leg after he got pedicure yesterday. Patient has been in and out of our hospital as well as [facility], being seen by Dr. Alaniz, always requesting a Toradol injection. I explained the patient that we cannot give any more Toradol injection at the patient's age, kidney function, and CHF. Denies all other associated symptoms, chest pain, shortness of breath, palpitation, no other associated symptoms. Was recently discharged from [facility] for CHF exacerbation. Reports that he is compliant taking his medication. Ddx considered but are not limited to : Cellulitis, DVT, superficial infection, abscess pedal edema due to CHF Vital signs: are WNL, pt. is afebrile H&PE are most consistent with: Pedal edema due to CHF ORDERS: Tylenol, lidocaine cream ED INTERVENTIONS: Tylenol DISCHARGE: At this time pt. is stable for d/c to home. Will provide printed patient care instructions, and any necessary prescriptions. Care plan and follow up instructions have been discussed with the patient prior to discharge. Patient is currently on antibiotics by her primary doctor, take medication as directed, if worsening symptoms return to emergency Last Vital Signs Date Time Temp Pulse Resp B/P (MAP) Pulse Ox O2 Delivery O2 Flow Rate FiO2 08/10/19 12:18 99.1 56 18 138/93 (108) 97 Room Air Disposition: HOME, SELF-CARE Condition: Stable Scripts Lidocaine Hcl (LIDOCAINE HCL) 28.35 Gm Cream..g. 2 GM TP TID, #30 GM Prov: Bailee Rizvi 08/10/19 Acetaminophen* (TYLENOL EXTRA STRENGTH*) 500 Mg Tablet 500 MG ORAL Q8H PRN for Prn Headache/Temp > 101, #15 TAB 0 Refills Prov: Bailee Rizvi 08/10/19 Patient Instructions: Edema, [id number] Additional Instructions: Toradol injections cannot be given to you and your age and your CHF condition you have been receiving a lot of Toradol injections in the past 6 months it is dangerous to your kidneys. You to follow-up with your primary care doctor. You also are taking pain medication antibiotics at that time. Bailee Rizvi Aug 10, 2019 12:39
[2019-08-10] MEDS ORDERED: LIDOCAINE HC28.35 GM TP (12:43)
[2019-08-10] MEDS ORDERED: TYLENOL EXTRA500 MG ORAL (12:43)
[2019-08-10 13:01] VITALS: BP 134/91
== END 2019-08-10 13:01 | disposition home or self-care (01) ==
LOC: EMR 12:50
DX: R60.0 Localized edema (principal); I11.0 Hypertensive heart disease with heart failure; I50.9 Heart failure, unspecified; I48.91 Unspecified atrial fibrillation; Z88.8 Allergy status to other drugs, medicaments and biological substances
CPT/HCPCS: 99282

== ENCOUNTER 2019-08-18 01:02 | Emergency (ER) | payer MEDICARE, MEDICAID ==
[~2019-08-18] VITALS: Ht 177.8 cm; Wt 99.8 kg
[~2019-08-18 01:02] MED LIST changes: +LIDOCAINE HC28.35 GM TP
--- NOTE | 2019-08-18 01:14 | NUR ---
ED Nurse Note: pt presents to ED c/o bilat knee pain without injury. pt states that he was just d/c from [facility] yesterday and from here a couple days before that for complications with COPD & CHF. pt denies taking anything for the pain TEST BAKER but does note that the pain in his knees is worse than his normal pain from his edema. no obvious deformities are noted, pt is able to ambulate but states it hurts to bear weight.
--- NOTE | 2019-08-18 01:15 | NUR ---
ED Nurse Note: pt would also like his L forearm to be evaluated because he had medical tape on it from his previous IV site and when it was removed, it tore off some of his skin.
[2019-08-18 01:17] VITALS: BP 122/96
[2019-08-18] MEDS ORDERED: Ketorolac 30mg Inj IM ONE (02:00)
--- NOTE | 2019-08-18 02:11 | Emergency Room Report ---
History of Present Illness General Chief Complaint: Pain Source: Patient Present Illness HPI This is a 68-year-old male well-known to this ER and [facility] and other hospitals in the area. He presents with complaint of joint pain. He just got out of [facility]. He was also admitted here recently. He diuresed a lot of fluid out. Now complaint of joint pain. He said he wants a shot of Toradol. Denies any fever chills but denies any shortness of breath. Nothing made it better. Nothing made it worse. Pain is 7 out of 10. No other complaint. Allergies: Coded Allergies: DILTIAZEM (Verified Allergy, Severe, Anaphylaxis, 07/03/19) Uncoded Allergies: Electrode (Allergy, Intermediate, Icting, 06/27/19) Patient History Past Medical History: see triage record, old chart reviewed, HTN, CHF, AFib Past Surgical History: other Pertinent Family History: none Social History: Denies: smoking Immunizations: other Reviewed Nursing Documentation: PMH: Agreed; PSxH: Agreed Nursing Documentation-PMH Hx Cardiac Problems: Yes - Afib Hx Hypertension: Yes Hx Pacemaker: No - retina detachment in the rigth eye Hx Asthma: No Hx COPD: No Hx Diabetes: No Hx Cancer: No Hx Gastrointestinal Problems: No Hx Dialysis: No Hx Neurological Problems: No Hx Cerebrovascular Accident: No Hx Seizures: No Review of Systems Eye: Denies: eye pain, blurred vision ENT: Denies: ear pain, nose congestion, throat swelling Respiratory: Denies: cough, shortness of breath Cardiovascular: Denies: chest pain, palpitations Gastrointestinal: Denies: abdominal pain, diarrhea, nausea, vomiting Musculoskeletal: Reports: joint pain; Denies: back pain Skin: Denies: rash Neurological: Denies: headache, numbness Endocrine: Denies: increased thirst, increased urine Hematologic/Lymphatic: Denies: easy bruising All Other Systems: negative except mentioned in HPI Physical Exam Vital Signs Date Time Temp Pulse Resp B/P (MAP) Pulse Ox O2 Delivery O2 Flow Rate FiO2 08/18/19 01:04 98.2 94 18 122/96 (105) 97 Room Air Vitals normal Sp02 EP Interpretation: reviewed, normal General Appearance: well appearing, no apparent distress, alert Head: normocephalic, atraumatic Eyes: bilateral eye PERRL, bilateral eye EOMI ENT: hearing grossly normal, normal pharynx Neck: full range of motion, supple, no meningismus Respiratory: chest non-tender, lungs clear, normal breath sounds Cardiovascular #1: no murmur, irregularly irregular Gastrointestinal: normal bowel sounds, non tender, no mass, no organomegaly, no bruit, non-distended Musculoskeletal: back normal, normal range of motion, gait/station normal, swelling - Trace edema. Neurologic: alert, oriented x3 Psychiatric: mood/affect normal Medical Decision Making Diagnostic Impression: Primary Impression: Chronic leg pain Qualified Codes: M79.604 - Pain in right leg; M79.605 - Pain in left leg; G89.29 - Other chronic pain ER Course Patient presents with exacerbation of his chronic pain. He is much improved from fluid overloaded. He is heart rate is controlled. He just want a shot of Toradol. I gave him a lower dose because of his knee function. Will discharge home. I see no criteria for admission. Last Vital Signs Date Time Temp Pulse Resp B/P (MAP) Pulse Ox O2 Delivery O2 Flow Rate FiO2 08/18/19 01:17 98.2 94 18 122/96 97 Room Air Status: improved Disposition: HOME, SELF-CARE Condition: Stable Referrals: Mariano Alaniz MD (PCP) Additional Instructions: Follow-up with your doctor in 7 days. Take your medication. Return if worse. Rajinder Coyle MD Aug 18, 2019 02:11
[2019-08-18 02:15] VITALS: BP 122/96
--- NOTE | 2019-08-18 02:15 | NUR ---
ED Nurse Note: Pt cleared by health care Provider for discharge. DC instructions was given and explained to pt and verbalized understanding of teachings. All medical devices such as ID band removed. Pt is AAO x4, ambulatory and left with all personal belongings.
== END 2019-08-18 02:15 | disposition home or self-care (01) ==
LOC: EMR 01:30
DX: G89.29 Other chronic pain (principal); M79.604 Pain in right leg; M79.605 Pain in left leg; Z88.8 Allergy status to other drugs, medicaments and biological substances; I11.0 Hypertensive heart disease with heart failure
CPT/HCPCS: 96372; 99283; J1885

== ENCOUNTER 2019-08-21 21:09 | Emergency (ER) | payer MEDICARE, MEDICAID ==
[~2019-08-21] VITALS: Ht 177.8 cm; Wt 99.8 kg
[2019-08-21 21:20] VITALS: BP 121/88
--- NOTE | 2019-08-21 21:20 | NUR ---
ED Nurse Note: patient walked in to ED due to med refill for Lasix as well as evaluation for L forearm skin tear. has been out of lasix x 2 days. AAO x4, VSS at this time.
[2019-08-21] MEDS ORDERED: FUROSEMIDE80 M1 ORAL (21:57)
--- NOTE | 2019-08-21 21:57 | Emergency Room Report ---
History of Present Illness General Chief Complaint: Medication Refill Source: Patient Present Illness HPI This is a 68-year-old male well-known to [facility]. He presents with chief complaint of out of his Lasix. He was just discharged from [facility] few days ago. He came in here right afterward and said that he had knee pain. He also has a skin tear from the tape on his left forearm. He came in now said that he did he is out of his Lasix. He denies any fever chills but no nausea no vomiting. No fever chills. He said his arm is not healing. Denies any other complaint. Allergies: Coded Allergies: DILTIAZEM (Verified Allergy, Severe, Anaphylaxis, 07/03/19) Uncoded Allergies: Electrode (Allergy, Intermediate, Icting, 06/27/19) Patient History Past Medical History: see triage record, old chart reviewed, HTN, CHF, AFib Past Surgical History: other Pertinent Family History: none Social History: Denies: smoking Immunizations: other Reviewed Nursing Documentation: PMH: Agreed; PSxH: Agreed Nursing Documentation-PMH Hx Cardiac Problems: Yes - Afib Hx Hypertension: Yes Hx Pacemaker: No - retina detachment in the rigth eye Hx Asthma: No Hx COPD: No Hx Diabetes: No Hx Cancer: No Hx Gastrointestinal Problems: No Hx Dialysis: No Hx Neurological Problems: No Hx Cerebrovascular Accident: No Hx Seizures: No Review of Systems Eye: Denies: eye pain, blurred vision ENT: Denies: ear pain, nose congestion, throat swelling Respiratory: Denies: cough, shortness of breath Cardiovascular: Denies: chest pain, palpitations Gastrointestinal: Denies: abdominal pain, diarrhea, nausea, vomiting Musculoskeletal: Denies: back pain, joint pain Skin: Denies: rash Neurological: Denies: headache, numbness Endocrine: Denies: increased thirst, increased urine Hematologic/Lymphatic: Denies: easy bruising All Other Systems: negative except mentioned in HPI Physical Exam Vital Signs Date Time Temp Pulse Resp B/P (MAP) Pulse Ox O2 Delivery O2 Flow Rate FiO2 08/21/19 21:13 98.1 85 18 121/88 (99) 99 Room Air Vitals normal Sp02 EP Interpretation: reviewed, normal General Appearance: well appearing, no apparent distress, alert Head: normocephalic, atraumatic Eyes: bilateral eye PERRL, bilateral eye EOMI ENT: hearing grossly normal, normal pharynx Neck: full range of motion, supple, no meningismus Respiratory: chest non-tender, lungs clear, normal breath sounds Cardiovascular #1: no murmur, irregularly irregular Gastrointestinal: normal bowel sounds, non tender, no mass, no organomegaly, no bruit, non-distended Musculoskeletal: back normal, normal range of motion, gait/station normal, other - Left forearm: He has a small 1 cm skin tear. No evidence of any infection. Psychiatric: mood/affect normal Medical Decision Making Diagnostic Impression: Primary Impression: Encounter for medication refill Additional Impression: Skin avulsion ER Course Patient here for medication refill. I suspect that he is go from hospital to hospital for care. He should not be out of his medication. We will refill his Lasix. He said he takes 80 mg a day. Explained to the patient that his skin tear is healing fine. There is no evidence of any infection. It would take longer than a few days. Last Vital Signs Date Time Temp Pulse Resp B/P (MAP) Pulse Ox O2 Delivery O2 Flow Rate FiO2 08/21/19 21:13 98.1 85 18 121/88 (99) 99 Room Air Status: unchanged Disposition: HOME, SELF-CARE Condition: Stable Scripts Furosemide* (LASIX*) 80 Mg Tablet 80 MG ORAL DAILY, #30 TAB Prov: Rajinder Coyle MD 08/21/19 Patient Instructions: Medicine Refill at the Emergency Department Additional Instructions: Follow-up with your doctor in 7 days. Keep your wound clean. It would take at least a couple weeks for fully heal. Return if symptoms worsen. Rajinder Coyle MD Aug 21, 2019 21:57
[2019-08-21 22:02] VITALS: BP 121/88
== END 2019-08-21 22:02 | disposition home or self-care (01) ==
LOC: EMR 22:02
DX: S51.812A Laceration without foreign body of left forearm, initial encounter (principal); Z76.0 Encounter for issue of repeat prescription; X58.XXXA Exposure to other specified factors, initial encounter; Y92.9 Unspecified place or not applicable; Z88.8 Allergy status to other drugs, medicaments and biological substances; I11.9 Hypertensive heart disease without heart failure
CPT/HCPCS: 99282

== ENCOUNTER 2019-08-30 20:04 | Emergency (ER) | payer MEDICARE, MEDICAID ==
[~2019-08-30] VITALS: Ht 177.8 cm; Wt 99.8 kg
[~2019-08-30 20:04] MED LIST changes: +FUROSEMIDE80 M1 ORAL
[2019-08-30 20:25] VITALS: BP 141/99
--- NOTE | 2019-08-30 20:25 | NUR ---
ED Nurse Note: Pt walked into ED for c/o bilat knee pain and swelling. Pt is requesting shot for pain. Pt is aaox4, no cardiac or respiratory distress noted. Pt is ambulatory with cane.
[2019-08-30] MEDS ORDERED: Acetaminophen 500mg (ES) tab ORAL ONE (20:30)
[2019-08-30] MEDS ORDERED: TYLENOL EXTRA500 MG ORAL (20:36)
[2019-08-30 20:40] VITALS: BP 139/85
--- NOTE | 2019-08-30 21:05 | Emergency Room Report ---
History of Present Illness General Chief Complaint: Pain Source: Patient Present Illness HPI 68-year-old male presents ED for evaluation. Complaining of bilateral knee pain. History of chronic pain. History of chronic gout. Denies any fall or injury. Pain is dull, 7 out of 10, nonradiating. Patient states he like a pain injection. States he comes here for the same thing previously. States he has a PMD. No other aggravating relieving factors. Denies any other associated symptoms Allergies: Coded Allergies: DILTIAZEM (Verified Allergy, Severe, Anaphylaxis, 07/03/19) Uncoded Allergies: Electrode (Allergy, Intermediate, Icting, 06/27/19) Patient History Past Medical History: HTN, CHF, other - gout Pertinent Family History: none Social History: Denies: smoking, alcohol use, drug use Immunizations: UTD Reviewed Nursing Documentation: PMH: Agreed; PSxH: Agreed Nursing Documentation-PMH Hx Cardiac Problems: Yes - CHF Hx Hypertension: Yes Hx Pacemaker: No - retina detachment in the rigth eye Hx Asthma: No Hx COPD: No Hx Diabetes: No Hx Cancer: No Hx Gastrointestinal Problems: No Hx Dialysis: No Hx Neurological Problems: Yes - arthritis; gout Hx Cerebrovascular Accident: No Hx Seizures: No Review of Systems All Other Systems: negative except mentioned in HPI Physical Exam Vital Signs Date Time Temp Pulse Resp B/P (MAP) Pulse Ox O2 Delivery O2 Flow Rate FiO2 08/30/19 20:06 97.7 92 18 141/99 (113) 97 Room Air Sp02 EP Interpretation: reviewed, normal General Appearance: no apparent distress, alert, GCS 15, non-toxic Head: normocephalic, atraumatic Eyes: bilateral eye normal inspection, bilateral eye PERRL ENT: hearing grossly normal, normal pharynx, no angioedema, normal voice Neck: full range of motion, supple/symm/no masses Respiratory: chest non-tender, lungs clear, normal breath sounds, speaking full sentences Cardiovascular #1: regular rate, rhythm, no edema Cardiovascular #2: 2+ carotid (R), 2+ carotid (L), 2+ radial (R), 2+ radial (L) , 2+ dorsalis pedis (R), 2+ dorsalis pedis (L) Gastrointestinal: normal bowel sounds, non tender, soft, non-distended, no guarding, no rebound Rectal: deferred Genitourinary: normal inspection, no CVA tenderness Musculoskeletal: back normal, normal range of motion, gait/station normal, tender, swelling Neurologic: alert, motor strength/tone normal, oriented x3, sensory intact, responsive, speech normal Psychiatric: judgement/insight normal, memory normal, mood/affect normal, no suicidal/homicidal ideation Reflexes: 3+ bicep (R), 3+ bicep (L), 3+ tricep (R), 3+ tricep (L), 3+ knee (R) , 3+ knee (L) Lymphatic: no adenopathy Medical Decision Making Diagnostic Impression: Primary Impression: Chronic leg pain Qualified Codes: M79.604 - Pain in right leg; M79.605 - Pain in left leg; G89.29 - Other chronic pain ER Course Hospital Course 68-year-old male presents to ED complaining of bilateral knee pain /swelling no trauma Differential diagnoses include: Fracture, dislocation, sprain, contusion, bursitis Clinical course Patient placed on stretcher. After initial history, physical exam reveals a elderly male in no acute distress. There is swelling to both knees and legs. Full range of motion noted. Patient is well-known to [facility]. Has been here multiple times for similar presentation. Typically requests a Toradol injection. I explained to the patient that repeated injections of Toradol would be detrimental to his kidneys and since he recently received 1 I cannot provide him additional injection at this time. I agreed to provide her with Tylenol. Patient agrees. Safe for discharge for close outpatient follow-up. Encourage close follow-up with PMD Diagnosis - chronic leg pain stable and discharged to home with prescription for tylenol. Followup with PMD. Return to ED if symptoms recur or worsen Last Vital Signs Date Time Temp Pulse Resp B/P (MAP) Pulse Ox O2 Delivery O2 Flow Rate FiO2 08/30/19 20:40 97.7 90 18 139/85 97 Room Air Status: improved Disposition: HOME, SELF-CARE Condition: Stable Scripts Acetaminophen* (TYLENOL EXTRA STRENGTH*) 500 Mg Tablet 500 MG ORAL Q8H PRN for Prn Headache/Temp > 101, #30 TAB 0 Refills Prov: Mateo Galeano MD 08/30/19 Referrals: Mariano Alaniz MD Patient Instructions: Chronic Pain Mateo Galeano MD Aug 30, 2019 21:05
== END 2019-08-30 20:40 | disposition home or self-care (01) ==
LOC: EMR 20:16
DX: G89.29 Other chronic pain (principal); M79.605 Pain in left leg; I11.0 Hypertensive heart disease with heart failure; I10 Essential (primary) hypertension; M19.90 Unspecified osteoarthritis, unspecified site; M10.9 Gout, unspecified; Z88.8 Allergy status to other drugs, medicaments and biological substances
CPT/HCPCS: 99282

== ENCOUNTER 2019-09-25 14:43 | Emergency (ER) | payer MEDICARE, MEDICAID ==
[~2019-09-25] VITALS: Ht 177.8 cm; Wt 99.8 kg
[2019-09-25 14:56] VITALS: BP 141/81
--- NOTE | 2019-09-25 14:57 | NUR ---
ED Nurse Note: Patient walked into ED from home c/o swollen legs due to gout x 1 week. Patient stated came from 's [place] office. Per Dr. Alaniz he needs shot. patient AAO x4, VSS at this time.
--- NOTE | 2019-09-25 15:07 | Emergency Room Report ---
History of Present Illness General Chief Complaint: Pain Source: Patient Present Illness HPI 69-year-old male with history of bilateral lower extremity edema, chronic edema , and gout who happens to control of your ER a lot always requesting a Toradol shot here requesting a Toradol shot. As always patient reports that he was sent by his primary care doctor Dr. Alaniz, patient has been told before multiple times a Toradol is not indicated in his age with the quantity that he is getting. Also I told him that since he has not had any new fall or injury no further imaging is needed. Patient is compliant with taking his Lasix. Denies any URI symptoms, fever and chills. COVID-19 risk:Contact w/high r: No COVID-19 risk:Travel to affect: No Has patient experienced blum: No Allergies: Coded Allergies: DILTIAZEM (Verified Allergy, Severe, Anaphylaxis, 07/03/19) Uncoded Allergies: Electrode (Allergy, Intermediate, Icting, 06/27/19) Patient History Past Medical History: see triage record Past Surgical History: none Pertinent Family History: none Immunizations: UTD Reviewed Nursing Documentation: PMH: Agreed; PSxH: Agreed Nursing Documentation-PMH Past Medical History: No History, Except For Hx Cardiac Problems: Yes - CHF Hx Hypertension: Yes Hx Pacemaker: No - retina detachment in the rigth eye Hx Asthma: No Hx COPD: No Hx Diabetes: No Hx Cancer: No Hx Gastrointestinal Problems: No Hx Dialysis: No Hx Neurological Problems: Yes - arthritis; gout Hx Cerebrovascular Accident: No Hx Seizures: No Review of Systems All Other Systems: negative except mentioned in HPI Physical Exam Vital Signs Date Time Temp Pulse Resp B/P (MAP) Pulse Ox O2 Delivery O2 Flow Rate FiO2 09/25/19 14:48 98.8 64 17 141/81 (101) 98 Room Air Sp02 EP Interpretation: reviewed, normal General Appearance: no apparent distress, alert, GCS 15, non-toxic Head: normocephalic, atraumatic Eyes: bilateral eye normal inspection, bilateral eye PERRL ENT: hearing grossly normal, normal pharynx, no angioedema, normal voice Neck: full range of motion, supple/symm/no masses Respiratory: chest non-tender, lungs clear, normal breath sounds, no rhonchi, no retraction, no wheezing, speaking full sentences Cardiovascular #1: regular rate, rhythm, no edema, no murmur Cardiovascular #2: 2+ dorsalis pedis (R), 2+ dorsalis pedis (L) Gastrointestinal: normal bowel sounds, non tender, soft, non-distended, no guarding, no rebound Rectal: deferred Genitourinary: no CVA tenderness Musculoskeletal: back normal, swelling - Bilateral lower extremities appears to be chronic Neurologic: alert, motor strength/tone normal, oriented x3, sensory intact, responsive, speech normal Psychiatric: judgement/insight normal, memory normal, mood/affect normal, no suicidal/homicidal ideation Lymphatic: no adenopathy Medical Decision Making PA Attestation All my diagnosis and treatment plans were reviewed ad discussed with my supervising physician Dr. Celeste Diagnostic Impression: Primary Impression: Leg edema ER Course 69-year-old male with history of bilateral lower extremity edema, chronic edema , and gout who happens to control of your ER a lot always requesting a Toradol shot here requesting a Toradol shot. As always patient reports that he was sent by his primary care doctor Dr. Alaniz, patient has been told before multiple times a Toradol is not indicated in his age with the quantity that he is getting. Also I told him that since he has not had any new fall or injury no further imaging is needed. Patient is compliant with taking his Lasix. Denies any URI symptoms, fever and chills. Ddx considered but are not limited to : Cellulitis, DVT, superficial infection, abscess, chronic edema Vital signs: are WNL, pt. is afebrile H&PE are most consistent with: Chronic lower extremity edema ORDERS: Tylenol, Voltaren gel as patient requesting something topical ED INTERVENTIONS: Tylenol DISCHARGE: At this time pt. is stable for d/c to home. Will provide printed patient care instructions, and any necessary prescriptions. Care plan and follow up instructions have been discussed with the patient prior to discharge. Explained to the patient as well as not indicated at this time patient has had multiple times in the past and is not good for his kidney function also due to the recent pandemic of covid19 anything within NSAID family has not been prescribed at this time. Last Vital Signs Date Time Temp Pulse Resp B/P (MAP) Pulse Ox O2 Delivery O2 Flow Rate FiO2 09/25/19 14:56 98.8 17 141/81 98 Room Air 09/25/19 14:48 64 Disposition: HOME, SELF-CARE Condition: Stable Scripts Diclofenac Sodium (VOLTAREN) 100 Gm Gel..gram. 2 GM TP TID, #100 GM Prov: Bailee Rizvi 09/25/19 Acetaminophen* (ACETAMINOPHEN 325MG TABLET*) 325 Mg Tablet 650 MG ORAL Q4H PRN for For Pain, #30 TAB Prov: Bailee Rizvi 09/25/19 Referrals: Mariano Alaniz MD (PCP) Patient Instructions: Edema, [id number] Bailee Rizvi Sep 25, 2019 15:07
[2019-09-25] MEDS ORDERED: ACETAMINOPHEN325 M1 ORAL (15:08)
[2019-09-25] MEDS ORDERED: VOLTAREN100 G1 TP (15:08)
[2019-09-25 15:33] VITALS: BP 141/81
== END 2019-09-25 15:35 | disposition home or self-care (01) ==
LOC: EMR 14:57
DX: R60.0 Localized edema (principal); Z79.899 Other long term (current) drug therapy; I11.0 Hypertensive heart disease with heart failure; M19.90 Unspecified osteoarthritis, unspecified site; I50.9 Heart failure, unspecified
CPT/HCPCS: 99282

== ENCOUNTER 2019-10-08 19:12 | Emergency (ER) | payer MEDICARE, MEDICAID ==
[~2019-10-08] VITALS: Ht 177.8 cm; Wt 95.3 kg
[~2019-10-08 19:12] MED LIST changes: +ACETAMINOPHEN325 M1 ORAL
[2019-10-08 20:10] VITALS: BP 105/70
--- NOTE | 2019-10-08 20:10 | NUR ---
ED Nurse Note: Recieved pt from home, here asking for prescription refill for c/o bilat knee pain, pt has chronic swelling and always takes lasix and potassium and states needs refills, denies cp or any other complaints or discomforts, is ambulatory and no sob or labored breathing noted, pt b/p slightly low, states just took night doses of clonidine, placed on monitoring to re-check.
--- NOTE | 2019-10-08 20:14 | Emergency Room Report ---
History of Present Illness General Chief Complaint: General Complaint Present Illness HPI 69-year-old male with history of CHF and bilateral lower extremity edema as well as arthritis of knees here requesting either tramadol or Toradol shot for knee pain. Patient has been to [facility] multiple times for same complaint. Reports that he just took his clonidine before coming here despite his blood pressure is low. Refuses to get any blood work or EKG or chest x-ray done. Only requesting something for the swelling in his legs and knee pain. Patient was last seen by me at [facility] 1 week ago. Was discharged with Tylenol as well as Voltaren gel. Reports that Dr. Alaniz who is his primary doctor told him to come here. Patient has used his excuse before. Denies any chest pain shortness of breath at this time. Denies fever and chills, URI symptoms. Patient also asked for medication refill for potassium. Allergies: Coded Allergies: DILTIAZEM (Verified Allergy, Severe, Anaphylaxis, 07/03/19) Uncoded Allergies: Electrode (Allergy, Intermediate, Icting, 06/27/19) COVID-19 Screening Contact w/high risk pt: No Recent Travel to affected area: No Experienced COVID-19 symptoms?: No Patient History Past Medical History: see triage record Past Surgical History: none Pertinent Family History: none Immunizations: UTD Reviewed Nursing Documentation: PMH: Agreed; PSxH: Agreed Nursing Documentation-PMH Hx Cardiac Problems: Yes - CHF Hx Hypertension: Yes Hx Pacemaker: No - retina detachment in the rigth eye Hx Asthma: No Hx COPD: No Hx Diabetes: No Hx Cancer: No Hx Gastrointestinal Problems: No Hx Dialysis: No Hx Neurological Problems: Yes - arthritis; gout Hx Cerebrovascular Accident: No Hx Seizures: No Review of Systems All Other Systems: negative except mentioned in HPI Physical Exam Vital Signs Date Time Temp Pulse Resp B/P (MAP) Pulse Ox O2 Delivery O2 Flow Rate FiO2 10/08/19 19:55 98.4 63 20 89/65 (73) 99 Room Air Sp02 EP Interpretation: reviewed, normal General Appearance: no apparent distress, alert, GCS 15, non-toxic Head: normocephalic, atraumatic Eyes: bilateral eye normal inspection, bilateral eye PERRL ENT: hearing grossly normal, normal pharynx, no angioedema, normal voice Neck: full range of motion, supple, supple/symm/no masses Respiratory: chest non-tender, lungs clear, normal breath sounds, no rhonchi, speaking full sentences Cardiovascular #1: regular rate, rhythm, no murmur Gastrointestinal: soft Genitourinary: normal inspection Musculoskeletal: swelling - Bilateral lower extremities Neurologic: alert, motor strength/tone normal, oriented x3, sensory intact, responsive, speech normal Psychiatric: judgement/insight normal, memory normal, mood/affect normal, no suicidal/homicidal ideation Skin: no rash Lymphatic: no adenopathy Medical Decision Making PA Attestation All diagnoses and treatment plans were reviewed and discussed with my supervising physician Dr. Lemon Diagnostic Impression: Primary Impression: Leg edema Additional Impressions: Arthritis Medication refill ER Course 69-year-old male with history of CHF and bilateral lower extremity edema as well as arthritis of knees here requesting either tramadol or Toradol shot for knee pain. Patient has been to [facility] multiple times for same complaint. Reports that he just took his clonidine before coming here despite his blood pressure is low. Refuses to get any blood work or EKG or chest x-ray done. Only requesting something for the swelling in his legs and knee pain. Patient was last seen by me at [facility] 1 week ago. Was discharged with Tylenol as well as Voltaren gel. Reports that Dr. Alaniz who is his primary doctor told him to come here. Patient has used his excuse before. Denies any chest pain shortness of breath at this time. Denies fever and chills, URI symptoms. Patient also asked for medication refill for potassium Ddx considered but are not limited to : Cellulitis, DVT, superficial infection, abscess, chronic lymphedema, arthritis of knees Vital signs: are WNL, pt. is afebrile H&PE are most consistent with: Leg edema, arthritis of knees, medication refill ORDERS: Tylenol, potassium chloride ED INTERVENTIONS: Tylenol DISCHARGE: At this time pt. is stable for d/c to home. Will provide printed patient care instructions, and any necessary prescriptions. Care plan and follow up instructions have been discussed with the patient prior to discharge. Follow-up primary care doctor, at this time no more Toradol injection can be given as you have CHF and at the age that renal function will be dangerously affected by repeated intake of Toradol. Continue taking your Lasix Last Vital Signs Date Time Temp Pulse Resp B/P (MAP) Pulse Ox O2 Delivery O2 Flow Rate FiO2 10/08/19 19:55 98.4 63 20 89/65 (73) 99 Room Air Disposition: HOME, SELF-CARE Condition: Stable Scripts Potassium Chloride (Potassium Chloride) 20 Meq Tablet.er 20 MEQ PO DAILY for 14 Days, #14 TAB Prov: Bailee Rizvi 10/08/19 Acetaminophen* (TYLENOL EXTRA STRENGTH*) 500 Mg Tablet 500 MG ORAL Q8H PRN for Prn Headache/Temp > 101, #30 TAB 0 Refills Prov: Bailee Rizvi 10/08/19 Referrals: Mariano Alaniz MD (PCP) Patient Instructions: Arthritis, [id number], Edema, [id number] Additional Instructions: Follow-up primary care doctor, at this time no more Toradol injection can be given as you have CHF and at the age that renal function will be dangerously affected by repeated intake of Toradol. Continue taking your Lasix Bailee Rizvi Oct 08, 2019 20:14
[2019-10-08] MEDS ORDERED: TYLENOL EXTRA500 MG ORAL (20:15)
[2019-10-08] MEDS ORDERED: POTASSIUM CHLO20 ME3 PO (20:29)
[2019-10-08 20:30] VITALS: BP 105/70
== END 2019-10-08 20:30 | disposition home or self-care (01) ==
LOC: EMR 20:01
DX: R60.0 Localized edema (principal); M17.0 Bilateral primary osteoarthritis of knee; Z88.8 Allergy status to other drugs, medicaments and biological substances; I11.0 Hypertensive heart disease with heart failure; I50.9 Heart failure, unspecified; Z76.0 Encounter for issue of repeat prescription
CPT/HCPCS: 99282

== ENCOUNTER 2019-10-28 00:55 | Emergency (ER) | payer MEDICARE, MEDICAID ==
[~2019-10-28] VITALS: Ht 177.8 cm; Wt 99.8 kg
--- NOTE | 2019-10-28 01:11 | NUR ---
ED Nurse Note: pt walked in to ed c/o bilat big toe pain x2days. Per patient, patient was told he had gout and had been in pain for the past two days. vss, nad. ambulatory, aaox4.
[2019-10-28 01:18] VITALS: BP 115/74
[2019-10-28] MEDS ORDERED: Ascorbic Acid 500mg tab ORAL ONE (01:45)
[2019-10-28] MEDS ORDERED: Ketorolac 30mg Inj IM ONE (01:45)
[2019-10-28] MEDS ORDERED: ACETAMINOPHEN500 M3 ORAL (01:53)
[2019-10-28] MEDS ORDERED: VITAMIN C500 M1 ORAL (01:53)
[2019-10-28 02:00] VITALS: BP 115/74
--- NOTE | 2019-10-28 04:55 | Emergency Room Report ---
History of Present Illness General Chief Complaint: Lower Extremity Injury Source: Medical Record Present Illness HPI Patient 69-year-old male presents for increased bilateral lower extremity discomfort. Patient prior history of gouty arthritis as well as congestive heart failure. He reports having worsening discomfort in both legs. Denies any numbness. Denies any weakness. Had prior history of retinal detachment. He is reportedly been compliant with his diuretics. Reports having significant pain to multiple parts of his body due to gout. Multiple prior visits for same in the past. Allergies: Coded Allergies: DILTIAZEM (Verified Allergy, Severe, Anaphylaxis, 07/03/19) Uncoded Allergies: Electrode (Allergy, Intermediate, Icting, 06/27/19) COVID-19 Screening Contact w/high risk pt: No Recent Travel to affected area: No Experienced COVID-19 symptoms?: No Patient History Past Medical History: see triage record Reviewed Nursing Documentation: PMH: Agreed; PSxH: Agreed Nursing Documentation-PMH Hx Cardiac Problems: Yes - CHF Hx Hypertension: Yes Hx Pacemaker: No - retina detachment in the rigth eye Hx Asthma: No Hx COPD: No Hx Diabetes: No Hx Cancer: No Hx Gastrointestinal Problems: No Hx Dialysis: No Hx Neurological Problems: Yes - arthritis; gout Hx Cerebrovascular Accident: No Hx Seizures: No Review of Systems All Other Systems: negative except mentioned in HPI Physical Exam Vital Signs Date Time Temp Pulse Resp B/P (MAP) Pulse Ox O2 Delivery O2 Flow Rate FiO2 10/28/19 01:09 98.4 69 16 117/76 (90) 98 Room Air Sp02 EP Interpretation: reviewed, normal General Appearance: normal inspection, alert, GCS 15, obese, Chronically Ill Head: atraumatic ENT: normal ENT inspection, hearing grossly normal, normal voice Neck: normal inspection, full range of motion, supple, no bony tend Respiratory: normal inspection, lungs clear, normal breath sounds, no respiratory distress, no retraction, no wheezing Cardiovascular #1: regular rate, rhythm, no edema Gastrointestinal: normal inspection, normal bowel sounds, non tender, soft, no guarding, no hernia Genitourinary: no CVA tenderness Musculoskeletal: normal inspection, back normal, normal range of motion, swelling - Limited range of motion Neurologic: alert, motor strength/tone normal, automobile mechanic assistant III-XII nml as tested, oriented x3, responsive, speech normal, normal inspection Psychiatric: normal inspection, judgement/insight normal, mood/affect normal Medical Decision Making Diagnostic Impression: Primary Impression: Pedal edema ER Course Patient presented for bilateral lower extremity swelling. Differential diagnosis include was not limited to pedal edema, gout, right heart failure among others. Patient was noted to have prior history of CHF however this appears to be more consistent with a gouty arthritis. Patient does not appear to have any evidence of difficulty with breathing. Heart rate is under control. Patient was given low doses of ketorolac as well as oral vitamin C. Patient had subsequent improvement in his pain. He was advised to follow-up with Dr. Alaniz for further evaluation and treatment. Advised to return if worse. Last Vital Signs Date Time Temp Pulse Resp B/P (MAP) Pulse Ox O2 Delivery O2 Flow Rate FiO2 10/28/19 02:00 98.5 68 16 115/74 98 Room Air Status: improved Disposition: HOME, SELF-CARE Condition: Stable Scripts Acetaminophen* (ACETAMINOPHEN EXTRA STRENGTH*) 500 Mg Tablet 500 MG ORAL Q8H PRN for Fever/Headache/Mild Pain, #30 TAB Prov: Fahad Castillo MD 10/28/19 Ascorbic Acid* (VITAMIN C*) 500 Mg Tablet 500 MG ORAL DAILY, #30 TAB 0 Refills Prov: Fahad Castillo MD 10/28/19 Patient Instructions: Edema, Gout, [id number] Fahad Castillo MD Oct 28, 2019 04:55
== END 2019-10-28 02:00 | disposition home or self-care (01) ==
LOC: EMR 01:27
DX: R60.0 Localized edema (principal); I11.0 Hypertensive heart disease with heart failure; I50.9 Heart failure, unspecified; M19.90 Unspecified osteoarthritis, unspecified site; Z88.8 Allergy status to other drugs, medicaments and biological substances
CPT/HCPCS: 96372; 99283; J1885

== ENCOUNTER 2019-11-16 11:48 | Emergency (ER) | payer MEDICARE, MEDICAID ==
[~2019-11-16] VITALS: Ht 177.8 cm; Wt 99.8 kg
[~2019-11-16 11:48] MED LIST changes: +ACETAMINOPHEN500 M3 ORAL
[2019-11-16 12:05] VITALS: BP 129/89
[2019-11-16] MEDS ORDERED: HYDROCORTISONE28 G2 TP (12:10)
[2019-11-16] MEDS ORDERED: Ketorolac 30mg Inj IM ONE (12:15)
--- NOTE | 2019-11-16 12:15 | Emergency Room Report ---
History of Present Illness General Chief Complaint: Pain Source: Patient Present Illness HPI Disclaimer: Please note that this report is being documented using ClearK[employer] technology. This can lead to erroneous entry secondary to incorrect interpretation by the dictating instrument. HPI: 69-year-old male history of atrial fibrillation, CHF with chronic lower extremity edema presents for evaluation of left knee pain and rash. Patient states he had swelling of his legs which improved after taking his diuretics earlier this week. Once the swelling resolved he noted aching in his left knee. Denies trauma. This is a chronic condition and flares up occasionally. Also has a history of gout but states is not consistent with a gouty arthritis attack. Able to ambulate without difficulty. His second complaint revolves a itchy rash. He states he has been put on a new heart medication by his dredge pipeman and over the past 2 months has noted intermittent itching and spots over the upper and lower extremities. He has been washing more but denies any alcohol based products. Denies any skin breakdown, ulcerations, bruising, abscesses or draining wounds. Denies any changes to his health care routine aside from showering more than usual. States his skin is oven drier tender than usual. PMH: Atrial fibrillation, chronic renal insufficiency, gouty arthritis, chronic lower extremity edema PSH: Reviewed Allergies: Cardizem Social Hx: Reviewed Allergies: Coded Allergies: DILTIAZEM (Verified Allergy, Severe, Anaphylaxis, 07/03/19) 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-19 Testing performed CERTIFIED ORTHOTIST/PEDORTHIST: No Nursing Documentation-PMH Hx Cardiac Problems: Yes - CHF Hx Hypertension: Yes Hx Pacemaker: No - retina detachment in the rigth eye Hx Asthma: No Hx COPD: No Hx Diabetes: No Hx Cancer: No Hx Gastrointestinal Problems: No Hx Dialysis: No Hx Neurological Problems: Yes - arthritis; gout Hx Cerebrovascular Accident: No Hx Seizures: No Review of Systems All Other Systems: negative except mentioned in HPI Physical Exam Vital Signs Date Time Temp Pulse Resp B/P (MAP) Pulse Ox O2 Delivery O2 Flow Rate FiO2 11/16/19 11:55 97.9 97 20 126/94 (105) 99 Room Air General: Awake and alert, no acute distress HEENT: NC/AT. EOMI. Resp: Normal work of breathing Skin: Intact. Lacy nonspecific rash over the upper and lower extremities with multiple excoriation arnold. No active bleeding, no cellulitis, no ulcerations, no evidence of abscess. MSK: Normal tone and bulk. Moving all extremities. No obvious deformity. Ambulating without difficulty. No lower extremity edema. Patella in anatomic position, nontender, no edema, no erythema, no bruising, no laxity Neuro: Awake and alert. Mentating appropriately Medical Decision Making Diagnostic Impression: Primary Impression: Knee pain Additional Impression: Rash and nonspecific skin eruption ER Course 69-year-old male with history of arthritis and chronic lower extremity edema presents for evaluation of atraumatic left knee pain and rash. No evidence of fluid overload, vitals within normal limits, no trauma reported. Patient has been seen in the emergency department other hospitals in the ER with similar complaints in the past. He is requesting a shot of Toradol as he is usually given which improve his symptoms. We will give him a shot of Toradol and also prescribe hydrocortisone for presumed atopic dermatitis or medication reaction from his new cardiac medications. He has an appointment to see his PMD and his dredge pipeman next week. We will not make any medication changes at this time. He will follow-up on an outpatient basis and return with new or worsening symptoms. Last Vital Signs Date Time Temp Pulse Resp B/P (MAP) Pulse Ox O2 Delivery O2 Flow Rate FiO2 11/16/19 11:55 97.9 97 20 126/94 (105) 99 Room Air Disposition: HOME, SELF-CARE Condition: Stable Scripts Hydrocortisone 1% Oint (Hydrocortisone 1% Oint*) Y Oint 5 GM TP BID, #28 GM Prov: Sebastian Payton MD 11/16/19 Additional Instructions: Follow-up with Dr. Alaniz and your dredge pipeman at your neck scheduled appointments. Apply the hydrocortisone cream as instructed for control of itching and discomfort. Return to the emergency department with new or worsening symptoms. Sebastian Payton MD November 16, 2019 12:15
[2019-11-16 12:30] VITALS: BP 124/84
== END 2019-11-16 12:30 | disposition home or self-care (01) ==
LOC: EMR 12:06
DX: M25.562 Pain in left knee (principal); R21 Rash and other nonspecific skin eruption; I48.91 Unspecified atrial fibrillation; I11.0 Hypertensive heart disease with heart failure; M10.9 Gout, unspecified; Z88.8 Allergy status to other drugs, medicaments and biological substances
CPT/HCPCS: 96372; 99283; J1885

== ENCOUNTER 2019-11-20 17:58 | Emergency (ER) | payer MEDICARE, MEDICAID ==
[~2019-11-20] VITALS: Ht 177.8 cm; Wt 99.8 kg
[~2019-11-20 17:58] MED LIST changes: +HYDROCORTISONE28 G2 TP
--- NOTE | 2019-11-20 18:21 | Emergency Room Report ---
History of Present Illness General Chief Complaint: Pain Source: Patient, Medical Record Present Illness HPI 69-year-old male presents to the emergency department complaining of 10 out of 10 severity progressive pain in the left knee as well as the base of the left toe. Patient reports swelling and erythema and severe tenderness to the slightest of palpation. Patient reports his symptoms are consistent with a gout flare in which she is experienced multiple times in the past. Patient reports history of allergy to allopurinol and states that typically receives IM Toradol when he has a flare-up. He denies trauma or fall. He denies fevers or chills. He reports he is able to ambulate. He denies calf pain. He denies recent open wounds near the affected areas. No other aggravating or relieving factors at this time. Denies CP, SOB, or paresthesias. Allergies: Coded Allergies: DILTIAZEM (Verified Allergy, Severe, Anaphylaxis, 07/03/19) 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-19 Testing performed MANAGER OF PRODUCT: No Patient History Past Medical History: see triage record, HTN, other - gout Past Surgical History: none Pertinent Family History: none Reviewed Nursing Documentation: PMH: Agreed; PSxH: Agreed Nursing Documentation-PMH Past Medical History: No History, Except For Hx Cardiac Problems: Yes - CHF Hx Hypertension: Yes Hx Pacemaker: No - retina detachment in the rigth eye Hx Asthma: No Hx COPD: No Hx Diabetes: No Hx Cancer: No Hx Gastrointestinal Problems: No Hx Dialysis: No Hx Neurological Problems: Yes - arthritis; gout Hx Cerebrovascular Accident: No Hx Seizures: No Review of Systems All Other Systems: negative except mentioned in HPI Physical Exam Vital Signs Date Time Temp Pulse Resp B/P (MAP) Pulse Ox O2 Delivery O2 Flow Rate FiO2 11/20/19 18:07 98.6 101 20 120/83 (95) 98 Room Air Sp02 EP Interpretation: reviewed, normal General Appearance: no apparent distress, alert, GCS 15, non-toxic Head: normocephalic, atraumatic Eyes: bilateral eye normal inspection, bilateral eye PERRL ENT: hearing grossly normal, normal voice Neck: full range of motion Respiratory: lungs clear, normal breath sounds, speaking full sentences Cardiovascular #1: regular rate, rhythm, no edema, normal capillary refill Musculoskeletal: normal range of motion, gait/station normal, tender - left knee and left first metatarsal with swelling. moderate tenderness, no increased warmth or notable erytema Neurologic: alert, motor strength/tone normal, oriented x3, sensory intact, responsive, speech normal Psychiatric: judgement/insight normal Skin: normal color Medical Decision Making PA Attestation Dr. Payton is my supervising Physician whom patient management has been discussed with. Diagnostic Impression: Primary Impression: Gout attack Qualified Codes: M10.9 - Gout, unspecified ER Course 69-year-old male presents to the emergency department complaining of 10 out of 10 severity progressive pain in the left knee as well as the base of the left toe. Patient reports swelling and erythema and severe tenderness to the slightest of palpation. Patient reports his symptoms are consistent with a gout flare in which she is experienced multiple times in the past. Patient reports history of allergy to allopurinol and states that typically receives IM Toradol when he has a flare-up. He denies trauma or fall. He denies fevers or chills. He reports he is able to ambulate. He denies calf pain. He denies recent open wounds near the affected areas. No other aggravating or relieving factors at this time. Denies CP, SOB, or paresthesias. Ddx considered but are not limited to cellulitis, Septic joint, pseudogout fracture, d/L, gout Vital signs: are WNL, pt. is afebrile H&PE are most consistent with recurrent gout attack.-- low suspicion for alternative septic joint. Pt. non toxic in appearance, FROM. ORDERS: none required at this time, the diagnosis is clinical ED INTERVENTIONS: -Toradol IM DISCHARGE: At this time pt. is stable for d/c to home. Will provide printed patient care instructions, and any necessary prescriptions. Care plan and follow up instructions have been discussed with the patient prior to discharge. Last Vital Signs Date Time Temp Pulse Resp B/P (MAP) Pulse Ox O2 Delivery O2 Flow Rate FiO2 11/20/19 18:07 98.6 101 20 120/83 (95) 98 Room Air Disposition: HOME, SELF-CARE Condition: Stable Patient Instructions: Gout, [id number] Additional Instructions: Take medications as directed. Follow up with a Primary Care Provider in 3-5 days, even if your symptoms have resolved. Return sooner to ED if new symptoms occur, or current symptoms become worse. - Please note that this Emergency Department Report was dictated using LiveRailbait maker technology software, occasionally this can lead to erroneous entry secondary to interpretation by the dictation equipment. Amy Salmon November 20, 2019 18:21
--- NOTE | 2019-11-20 18:25 | NUR ---
ED Nurse Note: Pt walked into ED with bilateral foot and leg pain for several days. Pt is walking with cane and is alert and orientedx4. Pt states pain in bilateral feet is 7/10.
[2019-11-20] MEDS ORDERED: Ketorolac 30mg Inj IM ONE (18:30)
[2019-11-20 18:54] VITALS: BP 116/81
[2019-11-20 19:20] VITALS: BP 120/82
--- NOTE | 2019-11-20 19:20 | NUR ---
ER DISCHARGE NOTE: Patient is cleared to be discharged per ERMD, pt is aox4, on room air, with stable vital signs. pt was given dc and instructions, pt was able to verbalize understanding, pt id band removed. pt is able to ambulate with steady gait. pt took all belongings.
== END 2019-11-20 19:20 | disposition home or self-care (01) ==
LOC: EMR 18:32
DX: M10.9 Gout, unspecified (principal); I11.0 Hypertensive heart disease with heart failure; I50.9 Heart failure, unspecified; M19.90 Unspecified osteoarthritis, unspecified site; Z88.8 Allergy status to other drugs, medicaments and biological substances
CPT/HCPCS: 96372; 99283; J1885

== ENCOUNTER 2019-11-23 17:51 | Emergency (ER) | payer MEDICARE, MEDICAID ==
[~2019-11-23] VITALS: Ht 177.8 cm; Wt 99.8 kg
[2019-11-23 17:59] VITALS: BP 100/53
--- NOTE | 2019-11-23 18:11 | Emergency Room Report ---
History of Present Illness General Chief Complaint: Edema Source: Patient Present Illness HPI Disclaimer: Please note that this report is being documented using SMR S[employer] technology. This can lead to erroneous entry secondary to incorrect interpretation by the dictating instrument. HPI: 69-year-old male with a history of gout and CHF presents for evaluation of lower extremity swelling. Seen in the emergency part multiple times for similar complaints. He notes several weeks of worsening swelling in his feet and lower legs. He has been taking his Lasix but states every now and then he needs an IV dose to achieve full diuresis. He is complaining of moderate pain. Denies any recent injury. Ambulating without difficulty otherwise. No other complaints at this time. Denies chest pain, shortness of breath, palpitations, syncope, lightheadedness, recent fever or other changes in his health PMH: Gout, CHF PSH: Reviewed Allergies: Diazepam Social Hx: Reviewed Allergies: Coded Allergies: DILTIAZEM (Verified Allergy, Severe, Anaphylaxis, 07/03/19) 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-19 Testing performed BUMBOATER: No Nursing Documentation-PMH Past Medical History: No History, Except For Hx Cardiac Problems: Yes - CHF Hx Hypertension: Yes Hx Pacemaker: No - retina detachment in the rigth eye Hx Asthma: No Hx COPD: No Hx Diabetes: No Hx Cancer: No Hx Gastrointestinal Problems: No Hx Dialysis: No Hx Neurological Problems: Yes - arthritis; gout Hx Cerebrovascular Accident: No Hx Seizures: No Review of Systems All Other Systems: negative except mentioned in HPI Physical Exam Vital Signs Date Time Temp Pulse Resp B/P (MAP) Pulse Ox O2 Delivery O2 Flow Rate FiO2 11/23/19 17:53 98.2 66 18 100/53 (69) 98 Room Air General: Awake and alert, no acute distress HEENT: NC/AT. EOMI. Resp: Normal work of breathing Skin: Intact. No abrasions, laceration or rash over the exposed skin MSK: Normal tone and bulk. Moving all extremities. No obvious deformity. 2+ bilateral lower extremity nonpitting edema. Lower extremities are symmetrical. Neuro: Awake and alert. Mentating appropriately Medical Decision Making ER Course 69-year-old male with a history of CHF and gout presents for evaluation bilateral lower extremity edema. Patient received a dose of IV Lasix with good diuresis. Received Toradol for pain. He feels well and like to be discharged home to follow-up with his PMD, Dr. Alaniz. Last Vital Signs Date Time Temp Pulse Resp B/P (MAP) Pulse Ox O2 Delivery O2 Flow Rate FiO2 11/23/19 17:59 66 18 Room Air 11/23/19 17:59 98.2 100/53 98 Sebastian Payton MD November 23, 2019 18:11
[2019-11-23] MEDS ORDERED: Ketorolac 30mg Inj IV ONE (18:15)
[2019-11-23 20:05] VITALS: BP 105/62
== END 2019-11-23 20:05 | disposition home or self-care (01) ==
LOC: EMR 18:21
DX: R60.0 Localized edema (principal); I50.9 Heart failure, unspecified; I10 Essential (primary) hypertension; M19.90 Unspecified osteoarthritis, unspecified site; M10.9 Gout, unspecified; Z88.8 Allergy status to other drugs, medicaments and biological substances; Z79.899 Other long term (current) drug therapy
CPT/HCPCS: 96374; 96375; 99284; J1885; J1940

== ENCOUNTER 2019-11-27 12:34 | Inpatient (IN) | payer MEDICARE, MEDICAID ==
[~2019-11-27] VITALS: Ht 177.8 cm; Wt 98.4 kg
[2019-11-27 13:20] VITALS: BP 122/71
--- NOTE | 2019-11-27 13:42 | Emergency Room Report ---
History of Present Illness General Chief Complaint: Lower Extremity Injury Source: Patient Present Illness HPI Patient presents with increased edema after visiting [place]. Patient has a longstanding history of atrial fibrillation and edema. He is presenting requesting dose of Lasix. He says 2 weeks ago he was started on a new medication for his heart that starts with a "D" (the patient has reported an allergy to diltiazem). In [place] he reports being in a cold environment although he denies chills or fever. Denies chest pain or dizziness. Also denies palpitations at this time. He denies pain. Patient has a history of gout. Retinal detachment. No sore throat, nausea, vomiting, diarrhea, dysuria, abdominal pain, shortness of breath, joint pain, rashes, depression, anxiety, visual changes, dizziness, headache. . The patient was admitted July of this year. Discharge diagnoses: 1. Acute CHF exacerbation on chronic. 2. Noncompliance with medication. 3. Paroxysmal atrial fibrillation. 4. Gout. 5. Renal mass. Allergies: Coded Allergies: DILTIAZEM (Verified Allergy, Severe, Anaphylaxis, 07/03/19) ALLOPURINOL (Unverified Allergy, Unknown, Hives, 11/27/19) patient states Allopurinol makes him itch. 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 Patient History Past Medical History: see triage record Social History: Denies: smoking, drug use Social History Narrative Involved with [employer] Reviewed Nursing Documentation: PMH: Agreed; PSxH: Agreed Nursing Documentation-PMH Hx Cardiac Problems: Yes - CHF Hx Hypertension: Yes Hx Pacemaker: No - retina detachment in the rigth eye Hx Asthma: No Hx COPD: No Hx Diabetes: No Hx Cancer: No Hx Gastrointestinal Problems: No Hx Dialysis: No Hx Neurological Problems: Yes - arthritis; gout Hx Cerebrovascular Accident: No Hx Seizures: No Review of Systems All Other Systems: negative except mentioned in HPI Physical Exam Vital Signs Date Time Temp Pulse Resp B/P (MAP) Pulse Ox O2 Delivery O2 Flow Rate FiO2 11/27/19 12:47 98.2 78 18 107/68 (81) 98 Room Air Sp02 EP Interpretation: reviewed, normal General Appearance: well appearing, no apparent distress, GCS 15 Head: normocephalic, atraumatic Eyes: bilateral eye EOMI ENT: moist mucus membranes Neck: supple Respiratory: lungs clear, normal breath sounds Cardiovascular #1: regular rate, rhythm, other - Venous disease legs, edema Cardiovascular #2: 2+ radial (R) Gastrointestinal: normal inspection, normal bowel sounds, non tender, no mass, non-distended, overweight Musculoskeletal: back normal, normal range of motion, no calf tenderness, gait/ station normal, other - No joint tenderness or swelling or warmth Neurologic: alert, oriented x3, grossly normal Psychiatric: mood/affect normal Skin: no rash, warm/dry Medical Decision Making Diagnostic Impression: Primary Impression: Atrial fibrillation with rapid ventricular response Additional Impressions: Peripheral edema Renal failure (ARF), acute on chronic Qualified Codes: N17.9 - Acute kidney failure, unspecified; N18.2 - Chronic kidney disease, stage 2 (mild) ER Course The patient presents with pedal edema is worse since worsened. Differential includes acute myocardial infarction, salt indiscretion, medical noncompliance, acute renal failure on chronic, DVT amongst others. Based on clinical exam DVT is less likely. Evaluation with EKG, chest x-ray and labs. Patient treated with IV Lasix. Patient is placed on a front desk monitor. EKG with rapid atrial fibrillation rate of 138 no acute injury. Chest x-ray cardiomegaly some scarring, ectatic aorta. Labs significant for normal white count, negative troponin, renal insufficiency, elevated BNP, digoxin level undetected active. Due to rapid heart rate and intermittent low blood pressure patient needs observation. In addition patient given medication to control his rate. Initially diltiazem was ordered however the patient has an allergy listed to this medication that he is uncertain of. Therefore digoxin is given IV. Digoxin level is also ordered from blood work. HR still 130-160. Digoxin repeated. 1437 Patient improved however heart rate still variable. Patient admitted to telemetry and cardiology consultation suggested. Laboratory Tests Test 11/27/19 13:20 11/27/19 14:32 White Blood Count 7.0 K/UL (4.8-10.8) Red Blood Count 4.70 M/UL (4.70-6.10) Hemoglobin 13.9 G/DL (14.2-18.0) L Hematocrit 41.4 % (42.0-52.0) L Mean Corpuscular Volume 88 FL (80-99) Mean Corpuscular Hemoglobin 29.5 PG (27.0-31.0) Mean Corpuscular Hemoglobin Concent 33.5 G/DL (32.0-36.0) Red Cell Distribution Width 14.0 % (11.6-14.8) Platelet Count 227 K/UL (150-450) Mean Platelet Volume 7.6 FL (6.5-10.1) Neutrophils (%) (Auto) % (45.0-75.0) Lymphocytes (%) (Auto) % (20.0-45.0) Monocytes (%) (Auto) % (1.0-10.0) Eosinophils (%) (Auto) % (0.0-3.0) Basophils (%) (Auto) % (0.0-2.0) Differential Total Cells Counted 100 Neutrophils % (Manual) 46 % (45-75) Lymphocytes % (Manual) 33 % (20-45) Monocytes % (Manual) 17 % (1-10) H Eosinophils % (Manual) 4 % (0-3) H Basophils % (Manual) 0 % (0-2) Band Neutrophils 0 % (0-8) Platelet Estimate Adequate Platelet Morphology Normal Anisocytosis 1+ Prothrombin Time 12.0 SEC (9.30-11.50) H Prothrombin Time INR 1.1 (0.9-1.1) Activated Partial Thromboplast Time 30 SEC (23-33) Sodium Level 145 MMOL/L (136-145) Potassium Level 4.5 MMOL/L (3.5-5.1) Chloride Level 111 MMOL/L (98-107) H Carbon Dioxide Level 25 MMOL/L (21-32) Anion Gap 10 mmol/L (5-15) Blood Urea Nitrogen 31 mg/dL (7-18) H Creatinine 1.8 MG/DL (0.55-1.30) H Estimated Glomerular Filtration Rate 45.6 mL/min (>60) Glucose Level 87 MG/DL (74-106) Uric Acid 9.7 MG/DL (2.6-7.2) H Calcium Level 9.9 MG/DL (8.5-10.1) Total Bilirubin 0.5 MG/DL (0.2-1.0) Aspartate Amino Transferase (AST) 25 U/L (15-37) Alanine Aminotransferase (ALT) 27 U/L (12-78) Alkaline Phosphatase 118 U/L (46-116) H Total Creatine Kinase 175 U/L (26-308) Troponin I 0.021 ng/mL (0.000-0.056) Pro-B-Type Natriuretic Peptide 2196 pg/mL (0-125) H Total Protein 6.8 G/DL (6.4-8.2) Albumin 3.4 G/DL (3.4-5.0) Globulin 3.4 g/dL Albumin/Globulin Ratio 1.0 (1.0-2.7) Digoxin Level < 0.2 NG/ML (0.5-2.0) L Urine Color Pale yellow Urine Appearance Clear Urine pH 6 (4.5-8.0) Urine Specific [place] 1.010 (1.005-1.035) Urine Protein Negative (NEGATIVE) Urine Glucose (UA) Negative (NEGATIVE) Urine Ketones Negative (NEGATIVE) Urine Blood Negative (NEGATIVE) Urine Nitrite Negative (NEGATIVE) Urine Bilirubin Negative (NEGATIVE) Urine Urobilinogen Normal MG/DL (0.0-1.0) Urine Leukocyte Esterase Negative (NEGATIVE) Urine Opiates Screen Negative (NEGATIVE) Urine Barbiturates Screen Negative (NEGATIVE) Phencyclidine (PCP) Screen Negative (NEGATIVE) Urine Amphetamines Screen Negative (NEGATIVE) Urine Benzodiazepines Screen Negative (NEGATIVE) Urine Cocaine Screen Negative (NEGATIVE) Urine Marijuana (THC) Screen Negative (NEGATIVE) EKG Diagnostic Results Rate: tachycardiac Rhythm: other - Atrial fibrillation ST Segments: no acute changes Rhythm Strip Diag. Results Rhythm: no PVC's, no ectopy, other - Atrial fibrillation rapid ventricular response Chest X-Ray Diagnostic Results Chest X-Ray Diagnostic Results : Chest X-Ray Ordered: Yes # of Views/Limited/Complete: 1 View Indication: Other EP Interpretation: Yes Interpretation: no effusion, no pneumothorax, other - Globular heart ectatic aorta and increased arnold Impression: Other Electronically Signed by: Electronically signed by Tim Gil MD Last Vital Signs Date Time Temp Pulse Resp B/P (MAP) Pulse Ox O2 Delivery O2 Flow Rate FiO2 11/27/19 16:00 97.8 83 20 128/90 (103) 95 11/27/19 15:35 Room Air 11/27/19 13:40 98 Status: improved Disposition: ADMITTED INPATIENT Condition: Serious Referrals: Mariano Alaniz MD (PCP) Tim Gil MD November 27, 2019 13:42
[2019-11-27 13:45] LABS: HEMATOCRIT 41.4 % (42.0-52.0); HEMOGLOBIN 13.9 G/DL (14.2-18.0); MEAN CORPUSCULAR VOLUME 88 FL (80-99); PLATELET COUNT 227 K/UL (150-450)
[2019-11-27] MEDS ORDERED: Digoxin 0.5mg/2ml Inj IVP ONE ×3 (13:45→14:45)
[2019-11-27] MEDS ORDERED: ELIQUIS2.5 MG PO (13:51)
[2019-11-27 13:56] LABS: INR 1.1 (0.9-1.1)
[2019-11-27 13:57] LABS: ANION GAP 10 mmol/L (5-15); BLOOD UREA NITROGEN 31 mg/dL (7-18); CALCIUM 9.9 MG/DL (8.5-10.1); CARBON DIOXIDE 25 MMOL/L (21-32); CHLORIDE 111 MMOL/L (98-107); CREATININE 1.8 MG/DL (0.55-1.30); POTASSIUM 4.5 MMOL/L (3.5-5.1); SODIUM 145 MMOL/L (136-145)
[2019-11-27 14:07] LABS: ALANINE AMINOTRANSFERASE 27 U/L (12-78); ALBUMIN 3.4 G/DL (3.4-5.0); ALKALINE PHOSPHATASE 118 U/L (46-116); ASPARTATE AMINO TRANSFERASE 25 U/L (15-37); BILIRUBIN,TOTAL 0.5 MG/DL (0.2-1.0); CREATINE KINASE 175 U/L (26-308)
[2019-11-27 14:41] LABS: APPEARANCE,URINE CLEAR; BILIRUBIN, URINE NEGATIVE (NEGATIVE); COLOR,URINE PALE YELLOW; GLUCOSE, URINE (UA) NEGATIVE (NEGATIVE); KETONES,URINE NEGATIVE (NEGATIVE); LEUKOCYTE ESTERASE ,URINE NEGATIVE (NEGATIVE); NITRITE,URINE NEGATIVE (NEGATIVE); PH,URINE 6 (4.5-8.0); PROTEIN,URINE NEGATIVE (NEGATIVE); UROBILINOGEN,URINE NORMAL MG/DL (0.0-1.0)
[2019-11-27 15:14] VITALS: BP 132/70
[2019-11-27 16:00] VITALS: BP 128/90
--- NOTE | 2019-11-27 16:16 | Diagnostic Imaging Report ---
EXAM: XR Chest, 1 View CLINICAL HISTORY: SWELL TECHNIQUE: Frontal view of the chest. COMPARISON: Chest radiograph on 08/02/2019 FINDINGS: Hardware: None. Lungs/pleura: Mild bibasilar opacities likely represent atelectasis. No focal consolidation. No pleural effusion or pneumothorax. Heart/mediastinum: Similar enlargement of the cardiac silhouette accounting for patient rotation. Soft tissues: Unremarkable. Bones: No acute fracture. Upper abdomen: Normal. IMPRESSION: Mild bibasilar opacities likely represent atelectasis. No focal consolidation.
[2019-11-27] MEDS ORDERED: HYDROcodone/Acetamin 5/325 tab ORAL PRN (18:00)
[2019-11-27] MEDS: Eliquis 2.5mg tablet ORAL SCH (18:52)
[2019-11-27 20:00] VITALS: BP 101/66
[2019-11-27] MEDS: Furosemide 40mg tab ORAL SCH (21:21)
[2019-11-28] VITALS: BP 122/70
[2019-11-28 04:00] VITALS: BP 127/80
[2019-11-28 08:00] VITALS: BP 131/100
[2019-11-28 08:22] LABS: HEMATOCRIT 37.9 % (42.0-52.0); HEMOGLOBIN 12.8 G/DL (14.2-18.0); MEAN CORPUSCULAR VOLUME 87 FL (80-99); PLATELET COUNT 182 K/UL (150-450); RED BLOOD COUNT 4.34 M/UL (4.70-6.10); RED CELL DISTRIBUTION WIDTH 13.8 % (11.6-14.8); WHITE BLOOD COUNT 5.1 K/UL (4.8-10.8)
[2019-11-28 08:48] LABS: ALANINE AMINOTRANSFERASE 23 U/L (12-78); ALBUMIN 2.8 G/DL (3.4-5.0); ALBUMIN/GLOBULIN RATIO 0.9 (1.0-2.7); ALKALINE PHOSPHATASE 83 U/L (46-116); ANION GAP 6 mmol/L (5-15); ASPARTATE AMINO TRANSFERASE 18 U/L (15-37); BILIRUBIN,TOTAL 0.6 MG/DL (0.2-1.0); BLOOD UREA NITROGEN 19 mg/dL (7-18); CALCIUM 9.2 MG/DL (8.5-10.1); CARBON DIOXIDE 24 MMOL/L (21-32); CHLORIDE 111 MMOL/L (98-107); CREATININE 1.4 MG/DL (0.55-1.30); PHOSPHORUS 2.3 MG/DL (2.5-4.9); POTASSIUM 3.9 MMOL/L (3.5-5.1); SODIUM 141 MMOL/L (136-145)
[2019-11-28] MEDS: Furosemide 40mg tab ORAL SCH (09:13)
[2019-11-28] MEDS: Eliquis 2.5mg tablet ORAL SCH (09:13)
[2019-11-28 09:34] LABS: CREATINE KINASE 82 U/L (26-308)
[2019-11-28 12:00] VITALS: BP 130/86
--- NOTE | 2019-11-28 12:20 | Diagnostic Imaging Report ---
Indication: Abnormal renal function tests, history of renal mass and chronic renal failure Technique: Grayscale and duplex images of the kidneys, retroperitoneum, and bladder were obtained. Comparison: 06/27/2019, also abdomen MRI dated 07/04/2019 Findings: Right kidney measures 10 cm in length. Left kidney measures 10.2 cm in length. Both kidneys demonstrate slightly increased echogenicity. No hydronephrosis. 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 This is also described on prior sonogram and appears similar in size and morphology. There is also described on recent MRI. A second immediately adjacent mass described on the prior MRI is not sonographically evident, may be inseparable on sonography. There are renal cysts bilaterally. 12 mm calculus is seen in the left lower pole renal sinus. There are other echogenic foci throughout the left renal sinus. Normal inferior vena cava. Bladder is normal. 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 Other punctate intrarenal calculi on left also noted Bilateral renal cysts Negative for hydronephrosis Slightly increased renal echogenicity, could indicate early medical renal disease.
--- NOTE | 2019-11-28 12:23 | Consultation ---
History of Present Illness General Date patient seen: November 28, 2019 Chief Complaint: Edema Present Illness HPI 69-year-old male with past medical history significant for hypertension, chronic congestive heart failure, chronic atrial fibrillation, gout presented to the emergency room complaining about worsening leg edema. The patient has been in and out of the hospital for the same symptoms multiple times at various hospitals. Upon arrival to the Emergency, the patient was noted to have elevated BNP. The patient was admitted to the hospital with worsening peripheral edema and decompensation of his CHF. Allergies: Coded Allergies: DILTIAZEM (Verified Allergy, Severe, Anaphylaxis, 07/03/19) ALLOPURINOL (Unverified Allergy, Unknown, Hives, 11/27/19) patient states Allopurinol makes him itch. Uncoded Allergies: Electrode (Allergy, Intermediate, Icting, 06/27/19) Medication History Scheduled Ascorbic Acid* (Vitamin C*), 500 MG ORAL DAILY Aspirin* (Aspir 81*), 81 MG ORAL DAILY, (Reported) Clonidine Hcl* (Catapres*), 0.2 MG ORAL Q8HR Diclofenac Sodium (Voltaren), 2 GM TP TID Furosemide* (Lasix*), 80 MG ORAL DAILY Hydrocortisone 1% Oint (Hydrocortisone 1% Oint*), 5 GM TP BID Potassium Chloride (Potassium Chloride), 20 MEQ PO DAILY Scheduled PRN Acetaminophen* (Tylenol Extra Strength*), 500 MG ORAL Q8H PRN for Prn Headache/ Temp > 101 Acetaminophen* (Acetaminophen 325MG Tablet*), 650 MG ORAL Q4H PRN for For Pain Acetaminophen* (Tylenol Extra Strength*), 500 MG ORAL Q8H PRN for Prn Headache/ Temp > 101 Acetaminophen* (Acetaminophen Extra Strength*), 500 MG ORAL Q8H PRN for Fever/ Headache/Mild Pain Allopurinol* (Allopurinol*), 300 MG ORAL DAILY PRN for GOUT, (Reported) Colchicine (Colcrys), 0.6 MG PO DAILY PRN for GOUT, (Reported) Miscellaneous Medications Apixaban (Eliquis), 2.5 MG PO, (Reported) Patient History Healthcare decision maker Resuscitation status Advanced Directive on File Past Medical/Surgical History Past Medical/Surgical History: (1) Right-sided heart failure (2) Chronic gout (3) Atrial fibrillation (4) Chronic leg pain (5) Renal failure (ARF), acute on chronic (6) HTN (hypertension) Review of Systems All Other Systems: negative except mentioned in HPI Physical Exam General Appearance: WD/WN Lines, tubes and drains: peripheral HEENT: normocephalic, atraumatic Neck: non-tender, normal alignment Respiratory/Chest: chest wall non-tender, rhonchi - left, rhonchi - right Abdomen: normal bowel sounds, non tender Genitourinary/Rectal: normal genital exam, normal rectal exam Skin Exam: normal pigmentation Last 24 Hour Vital Signs Date Time Temp Pulse Resp B/P (MAP) Pulse Ox O2 Delivery O2 Flow Rate FiO2 11/28/19 09:00 57 131/100 11/28/19 09:00 Room Air 11/28/19 08:00 97.5 57 20 131/100 (110) 98 11/28/19 08:00 62 11/28/19 04:00 Room Air 11/28/19 04:00 46 11/28/19 04:00 98.4 53 18 127/80 (96) 96 11/28/19 00:00 98.1 72 18 122/70 (87) 96 11/28/19 00:00 Room Air 11/28/19 00:00 58 11/27/19 21:00 Room Air 11/27/19 21:00 61 99/65 11/27/19 20:00 97.9 64 18 101/66 (78) 99 11/27/19 20:00 76 11/27/19 16:50 Room Air 11/27/19 16:00 97.8 83 20 128/90 (103) 95 11/27/19 16:00 93 11/27/19 15:35 98.5 109 17 122/72 99 Room Air 11/27/19 15:14 98.2 106 16 132/70 97 Room Air 11/27/19 14:37 133 11/27/19 13:56 140 11/27/19 13:40 109 15 Room Air 98 11/27/19 13:20 98.2 133 16 122/71 100 Room Air 11/27/19 12:47 98.2 78 18 107/68 (81) 98 Room Air Intake and Output 11/27/19 11/28/19 19:00 07:00 Intake Total 360 ml 720 ml Balance 360 ml 720 ml Intake Oral 360 ml 720 ml # Voids 2 Laboratory Tests Test 11/27/19 13:20 11/27/19 14:32 11/28/19 07:30 White Blood Count 7.0 K/UL (4.8-10.8) 5.1 K/UL (4.8-10.8) Red Blood Count 4.70 M/UL (4.70-6.10) 4.34 M/UL (4.70-6.10) L Hemoglobin 13.9 G/DL (14.2-18.0) L 12.8 G/DL (14.2-18.0) L Hematocrit 41.4 % (42.0-52.0) L 37.9 % (42.0-52.0) L Mean Corpuscular Volume 88 FL (80-99) 87 FL (80-99) Mean Corpuscular Hemoglobin 29.5 PG (27.0-31.0) 29.6 PG (27.0-31.0) Mean Corpuscular Hemoglobin Concent 33.5 G/DL (32.0-36.0) 33.9 G/DL (32.0-36.0) Red Cell Distribution Width 14.0 % (11.6-14.8) 13.8 % (11.6-14.8) Platelet Count 227 K/UL (150-450) 182 K/UL (150-450) Mean Platelet Volume 7.6 FL (6.5-10.1) 8.1 FL (6.5-10.1) Neutrophils (%) (Auto) % (45.0-75.0) % (45.0-75.0) Lymphocytes (%) (Auto) % (20.0-45.0) % (20.0-45.0) Monocytes (%) (Auto) % (1.0-10.0) % (1.0-10.0) Eosinophils (%) (Auto) % (0.0-3.0) % (0.0-3.0) Basophils (%) (Auto) % (0.0-2.0) % (0.0-2.0) Differential Total Cells Counted 100 100 Neutrophils % (Manual) 46 % (45-75) 49 % (45-75) Lymphocytes % (Manual) 33 % (20-45) 30 % (20-45) Monocytes % (Manual) 17 % (1-10) H 17 % (1-10) H Eosinophils % (Manual) 4 % (0-3) H 4 % (0-3) H Basophils % (Manual) 0 % (0-2) 0 % (0-2) Band Neutrophils 0 % (0-8) 0 % (0-8) Platelet Estimate Adequate Adequate Platelet Morphology Normal Normal Anisocytosis 1+ Prothrombin Time 12.0 SEC (9.30-11.50) H Prothromb Time International Ratio 1.1 (0.9-1.1) Activated Partial Thromboplast Time 30 SEC (23-33) Sodium Level 145 MMOL/L (136-145) 141 MMOL/L (136-145) Potassium Level 4.5 MMOL/L (3.5-5.1) 3.9 MMOL/L (3.5-5.1) Chloride Level 111 MMOL/L (98-107) H 111 MMOL/L (98-107) H Carbon Dioxide Level 25 MMOL/L (21-32) 24 MMOL/L (21-32) Anion Gap 10 mmol/L (5-15) 6 mmol/L (5-15) Blood Urea Nitrogen 31 mg/dL (7-18) H 19 mg/dL (7-18) H Creatinine 1.8 MG/DL (0.55-1.30) H 1.4 MG/DL (0.55-1.30) H Estimat Glomerular Filtration Rate 45.6 mL/min (>60) > 60 mL/min (>60) Glucose Level 87 MG/DL (74-106) 92 MG/DL (74-106) Uric Acid 9.7 MG/DL (2.6-7.2) H 9.8 MG/DL (2.6-7.2) H Calcium Level 9.9 MG/DL (8.5-10.1) 9.2 MG/DL (8.5-10.1) Total Bilirubin 0.5 MG/DL (0.2-1.0) 0.6 MG/DL (0.2-1.0) Aspartate Amino Transf (AST/SGOT) 25 U/L (15-37) 18 U/L (15-37) Alanine Aminotransferase (ALT/SGPT) 27 U/L (12-78) 23 U/L (12-78) Alkaline Phosphatase 118 U/L (46-116) H 83 U/L (46-116) Total Creatine Kinase 175 U/L (26-308) 82 U/L (26-308) Troponin I 0.021 ng/mL (0.000-0.056) Pro-B-Type Natriuretic Peptide 2196 pg/mL (0-125) H Total Protein 6.8 G/DL (6.4-8.2) 5.8 G/DL (6.4-8.2) L Albumin 3.4 G/DL (3.4-5.0) 2.8 G/DL (3.4-5.0) L Globulin 3.4 g/dL 3.0 g/dL Albumin/Globulin Ratio 1.0 (1.0-2.7) 0.9 (1.0-2.7) L Digoxin Level < 0.2 NG/ML (0.5-2.0) L Urine Color Pale yellow Urine Appearance Clear Urine pH 6 (4.5-8.0) Urine Specific [place] 1.010 (1.005-1.035) Urine Protein Negative (NEGATIVE) Urine Glucose (UA) Negative (NEGATIVE) Urine Ketones Negative (NEGATIVE) Urine Blood Negative (NEGATIVE) Urine Nitrite Negative (NEGATIVE) Urine Bilirubin Negative (NEGATIVE) Urine Urobilinogen Normal MG/DL (0.0-1.0) Urine Leukocyte Esterase Negative (NEGATIVE) Urine Opiates Screen Negative (NEGATIVE) Urine Barbiturates Screen Negative (NEGATIVE) Phencyclidine (PCP) Screen Negative (NEGATIVE) Urine Amphetamines Screen Negative (NEGATIVE) Urine Benzodiazepines Screen Negative (NEGATIVE) Urine Cocaine Screen Negative (NEGATIVE) Urine Marijuana (THC) Screen Negative (NEGATIVE) Red Blood Cell Morphology Normal Phosphorus Level 2.3 MG/DL (2.5-4.9) L Magnesium Level 2.0 MG/DL (1.8-2.4) Height (Feet): 5 Height (Inches): 10.00 Weight (Pounds): 217 Medications Current Medications Medications (Trade) Dose Ordered Sig/Artie Route PRN Reason Start Time Stop Time Status Last Admin Dose Admin Acetaminophen (Tylenol) 650 mg Q6H PRN ORAL For Headache 11/27/19 18:00 12/27/19 17:59 Acetaminophen/ Hydrocodone Bitart ([place] 5/325) 1 tab Q6H PRN ORAL Moderate Pain (Pain Scale 4-6) 11/27/19 18:00 12/04/19 17:59 Apixaban (Eliquis) 2.5 mg BID ORAL 11/27/19 18:00 02/25/20 17:59 11/28/19 09:13 Carvedilol (Coreg) 3.125 mg EVERY 12 HOURS ORAL 11/27/19 21:00 12/27/19 20:59 Furosemide (Lasix) 40 mg EVERY 12 HOURS ORAL 11/27/19 21:00 12/27/19 20:59 11/28/19 09:13 Ondansetron HCl (Zofran) 4 mg Q4H PRN IVP Nausea & Vomiting 11/27/19 18:00 12/27/19 17:59 Potassium Chloride (K-Dur) 20 meq DAILY ORAL 11/28/19 09:00 02/26/20 08:59 11/28/19 09:13 Assessment/Plan Problem List: (1) Atrial fibrillation with rapid ventricular response ICD Codes: I48.91 - Unspecified atrial fibrillation SNOMED: 137960064307025 (2) Right-sided heart failure ICD Codes: I50.9 - Heart failure, unspecified SNOMED: 946576118 (3) Pedal edema ICD Codes: R60.0 - Localized edema SNOMED: 014757095 (4) Chronic renal insufficiency ICD Codes: N18.9 - Chronic kidney disease, unspecified SNOMED: 330623282 (5) Chronic leg pain ICD Codes: M79.606 - Pain in leg, unspecified; G89.29 - Other chronic pain SNOMED: 80803869, 93635435 (6) HTN (hypertension) ICD Codes: I10 - Essential (primary) hypertension SNOMED: 72909995 (7) Chronic gout ICD Codes: M1A.9XX0 - Chronic gout, unspecified, without tophus (tophi) SNOMED: 03013610, 82137184 Assessment/Plan: telemetry monitoring respiratory treatment titrate fio2 to sat of 92% heart rate control with prn Cardizem diuretics pain management Abbey Espinoza MD November 28, 2019 12:23
--- NOTE | 2019-11-28 12:36 | Cardiac Electrophysiology PN ---
Subjective Subjective Tachy Charlie HR 34 at 7 am while awake and 130s few hours later EF 40% could be tachy myopathy. Likely needs Pacer to allow maximizing his Beta андрей. 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 [id number] Objective Last 24 Hour Vital Signs Date Time Temp Pulse Resp B/P (MAP) Pulse Ox O2 Delivery O2 Flow Rate FiO2 11/28/19 09:00 57 131/100 11/28/19 09:00 Room Air 11/28/19 08:00 97.5 57 20 131/100 (110) 98 11/28/19 08:00 62 11/28/19 04:00 Room Air 11/28/19 04:00 46 11/28/19 04:00 98.4 53 18 127/80 (96) 96 11/28/19 00:00 98.1 72 18 122/70 (87) 96 11/28/19 00:00 Room Air 11/28/19 00:00 58 11/27/19 21:00 Room Air 11/27/19 21:00 61 99/65 11/27/19 20:00 97.9 64 18 101/66 (78) 99 11/27/19 20:00 76 11/27/19 16:50 Room Air 11/27/19 16:00 97.8 83 20 128/90 (103) 95 11/27/19 16:00 93 11/27/19 15:35 98.5 109 17 122/72 99 Room Air 11/27/19 15:14 98.2 106 16 132/70 97 Room Air 11/27/19 14:37 133 11/27/19 13:56 140 11/27/19 13:40 109 15 Room Air 98 11/27/19 13:20 98.2 133 16 122/71 100 Room Air 11/27/19 12:47 98.2 78 18 107/68 (81) 98 Room Air Intake and Output 11/27/19 11/28/19 19:00 07:00 Intake Total 360 ml 720 ml Balance 360 ml 720 ml Intake Oral 360 ml 720 ml # Voids 2 Laboratory Tests Test 11/27/19 13:20 11/27/19 14:32 11/28/19 07:30 White Blood Count 7.0 K/UL (4.8-10.8) 5.1 K/UL (4.8-10.8) Red Blood Count 4.70 M/UL (4.70-6.10) 4.34 M/UL (4.70-6.10) L Hemoglobin 13.9 G/DL (14.2-18.0) L 12.8 G/DL (14.2-18.0) L Hematocrit 41.4 % (42.0-52.0) L 37.9 % (42.0-52.0) L Mean Corpuscular Volume 88 FL (80-99) 87 FL (80-99) Mean Corpuscular Hemoglobin 29.5 PG (27.0-31.0) 29.6 PG (27.0-31.0) Mean Corpuscular Hemoglobin Concent 33.5 G/DL (32.0-36.0) 33.9 G/DL (32.0-36.0) Red Cell Distribution Width 14.0 % (11.6-14.8) 13.8 % (11.6-14.8) Platelet Count 227 K/UL (150-450) 182 K/UL (150-450) Mean Platelet Volume 7.6 FL (6.5-10.1) 8.1 FL (6.5-10.1) Neutrophils (%) (Auto) % (45.0-75.0) % (45.0-75.0) Lymphocytes (%) (Auto) % (20.0-45.0) % (20.0-45.0) Monocytes (%) (Auto) % (1.0-10.0) % (1.0-10.0) Eosinophils (%) (Auto) % (0.0-3.0) % (0.0-3.0) Basophils (%) (Auto) % (0.0-2.0) % (0.0-2.0) Differential Total Cells Counted 100 100 Neutrophils % (Manual) 46 % (45-75) 49 % (45-75) Lymphocytes % (Manual) 33 % (20-45) 30 % (20-45) Monocytes % (Manual) 17 % (1-10) H 17 % (1-10) H Eosinophils % (Manual) 4 % (0-3) H 4 % (0-3) H Basophils % (Manual) 0 % (0-2) 0 % (0-2) Band Neutrophils 0 % (0-8) 0 % (0-8) Platelet Estimate Adequate Adequate Platelet Morphology Normal Normal Anisocytosis 1+ Prothrombin Time 12.0 SEC (9.30-11.50) H Prothromb Time International Ratio 1.1 (0.9-1.1) Activated Partial Thromboplast Time 30 SEC (23-33) Sodium Level 145 MMOL/L (136-145) 141 MMOL/L (136-145) Potassium Level 4.5 MMOL/L (3.5-5.1) 3.9 MMOL/L (3.5-5.1) Chloride Level 111 MMOL/L (98-107) H 111 MMOL/L (98-107) H Carbon Dioxide Level 25 MMOL/L (21-32) 24 MMOL/L (21-32) Anion Gap 10 mmol/L (5-15) 6 mmol/L (5-15) Blood Urea Nitrogen 31 mg/dL (7-18) H 19 mg/dL (7-18) H Creatinine 1.8 MG/DL (0.55-1.30) H 1.4 MG/DL (0.55-1.30) H Estimat Glomerular Filtration Rate 45.6 mL/min (>60) > 60 mL/min (>60) Glucose Level 87 MG/DL (74-106) 92 MG/DL (74-106) Uric Acid 9.7 MG/DL (2.6-7.2) H 9.8 MG/DL (2.6-7.2) H Calcium Level 9.9 MG/DL (8.5-10.1) 9.2 MG/DL (8.5-10.1) Total Bilirubin 0.5 MG/DL (0.2-1.0) 0.6 MG/DL (0.2-1.0) Aspartate Amino Transf (AST/SGOT) 25 U/L (15-37) 18 U/L (15-37) Alanine Aminotransferase (ALT/SGPT) 27 U/L (12-78) 23 U/L (12-78) Alkaline Phosphatase 118 U/L (46-116) H 83 U/L (46-116) Total Creatine Kinase 175 U/L (26-308) 82 U/L (26-308) Troponin I 0.021 ng/mL (0.000-0.056) Pro-B-Type Natriuretic Peptide 2196 pg/mL (0-125) H Total Protein 6.8 G/DL (6.4-8.2) 5.8 G/DL (6.4-8.2) L Albumin 3.4 G/DL (3.4-5.0) 2.8 G/DL (3.4-5.0) L Globulin 3.4 g/dL 3.0 g/dL Albumin/Globulin Ratio 1.0 (1.0-2.7) 0.9 (1.0-2.7) L Digoxin Level < 0.2 NG/ML (0.5-2.0) L Urine Color Pale yellow Urine Appearance Clear Urine pH 6 (4.5-8.0) Urine Specific [place] 1.010 (1.005-1.035) Urine Protein Negative (NEGATIVE) Urine Glucose (UA) Negative (NEGATIVE) Urine Ketones Negative (NEGATIVE) Urine Blood Negative (NEGATIVE) Urine Nitrite Negative (NEGATIVE) Urine Bilirubin Negative (NEGATIVE) Urine Urobilinogen Normal MG/DL (0.0-1.0) Urine Leukocyte Esterase Negative (NEGATIVE) Urine Opiates Screen Negative (NEGATIVE) Urine Barbiturates Screen Negative (NEGATIVE) Phencyclidine (PCP) Screen Negative (NEGATIVE) Urine Amphetamines Screen Negative (NEGATIVE) Urine Benzodiazepines Screen Negative (NEGATIVE) Urine Cocaine Screen Negative (NEGATIVE) Urine Marijuana (THC) Screen Negative (NEGATIVE) Red Blood Cell Morphology Normal Phosphorus Level 2.3 MG/DL (2.5-4.9) L Magnesium Level 2.0 MG/DL (1.8-2.4) Jean Marie Roca MD November 28, 2019 12:36
[2019-11-28] MEDS ORDERED: HydrALAZINE 10mg Tab ORAL SCH (18:00)
--- NOTE | 2019-11-28 21:45 | Consultation ---
DATE OF CONSULTATION: 11/28/2019 CARDIOLOGY CONSULTATION CONSULTING PHYSICIAN: Jean Marie Roca MD. REFERRING PHYSICIAN: Mariano Alaniz MD. REASON FOR CONSULTATION: Atrial fibrillation with rapid ventricular response as well as bradycardia. HISTORY OF PRESENT ILLNESS: Patient is a 69-year-old gentleman with history of hypertension, chronic atrial fibrillation, congestive heart failure, and gout presents to the emergency room for worsening of his leg edema. Patient was recently at [facility] and was discharged just last week. Patient was noted to have elevated BNP and was admitted for CHF exacerbation. It is also of note that overnight, patient's heart rate dropped to 34 and that was at 7 o'clock in the morning while patient was awake. REVIEW OF SYSTEMS: Negative other than what was mentioned in the history of present illness. PAST MEDICAL HISTORY: As mentioned above. FAMILY HISTORY: Noncontributory. SOCIAL HISTORY: He lives at home. Denies smoking or drinking alcohol. PHYSICAL EXAMINATION: VITAL SIGNS: Show blood pressure of 130/100, pulse was as low as 46 and as high as 130, currently 57, respirations 18, he is afebrile. HEAD AND NECK: Showed no JVD. LUNGS: Decreased breath sounds. CARDIOVASCULAR: Shows irregularly irregular S1 and S2 with no gallop. ABDOMEN: Soft. EXTREMITIES: 2+ pitting edema. LABORATORY AND DIAGNOSTIC DATA: His labs show white count of 5.1, hemoglobin 12.8, hematocrit of 38, and platelet count is 182. Sodium 141, potassium 3.9, BUN of 19, creatinine 1.4, and glucose of 92. His first troponin is negative. Urine toxicology is negative. INR is 1.1. ASSESSMENT AND PLAN: 1. Atrial fibrillation with rapid ventricular response as well as bradycardic episodes with heart rate dropping to 40s. Patient's echocardiogram showed EF of 40%. Patient has also mild mitral regurgitation. 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 However, patient insisting on going home. In the meantime, keep the patient on low-dose Coreg 3.125 mg b.i.d. and Eliquis 2.5 mg b.i.d. 2. Cardiomyopathy. EF of 40%. Patient denies any prior cardiac catheterization or former ischemic evaluation. Continue Coreg 3.125 b.i.d. and change Lasix to 40 mg IV b.i.d. I will add low-dose hydralazine and Isordil to his medical regimen and avoid DO inhibitor. We will get troponin to rule out myocardial infarction as well. 3. Renal failure. Creatinine was 1.8, today is 1.4. In July of 2019, creatinine was 1.6. 4. Hypertension. Continue Coreg. 5. Gout. Thank you very much for allowing me to participate in the care of this patient. Please do not hesitate to contact for any questions regarding my evaluation. Jean Marie Roca M.D. DR: EDD JOB#: [id number] CC:
--- NOTE | 2019-11-30 11:34 | Discharge Summary ---
Discharge Summary Discharge Summary _ DATE OF ADMISSION: 11/27/2019 DATE OF DISCHARGE: 11/28/2019 DISCHARGED BY: Dr. Alaniz REASON FOR ADMISSION: 69 years old male with past medical history of atrial fibrillation, congestive heart failure, gout, retinal detachment, presented requesting Lasix. Patient reported 2 weeks ago he started a new medication for his heart/Digoxin. He denied fever and chills. He denied chest pain or dizziness. He denied palpitation. Upon evaluation patient was tachycardic . EKG revealed atrial fibrillation with rapid ventricular response with heart rate 138. Chest x-ray revealed cardiomegaly, some scaring and ectatic aorta. Laboratory work-up revealed no leukocytosis. Troponin was negative. pro BNP 2196. BUN 31, creatinine 1.8. Uric acid 9.7. Urinalysis was essentially unremarkable. Digoxin level was less than 0.2. Urine toxicology screen was negative. Patient received IV Lasix and digoxin x2. Heart rate improved . Patient admitted to telemetry floor for further management. CONSULTANTS: [email or web address] programmer analyst Dr. Gaxiola pulmonary Dr. Espinoza HOSPITAL COURSE: Patient admitted to telemetry floor. Echocardiogram demonstrated posterior wall hypokinesis with left ventricular ejection fraction estimated to be 40 to 45%. Mild left ventricular hypertrophy noted. Moderate mitral regurgitation. Right ventricular systolic pressure of 40 consistent with a mild pulmonary hypertension. Guideline directed medical therapy for congestive heart failure continued with hydralazine , isosorbide, beta-андрей, Lasix and digoxin. Anticoagulation with Eliquis continued. Volumes were closely monitored. Patient continued to be between intermittent atrial fibrillation and sinus rhythm. Episodes of bradycardia noted. Per as400 programmer analyst, patient had tachy-byron syndrome. Service Center Manager recommended pacemaker to allow maximizing beta-андрей. Patient however wanted to go home and follow-up with his own as400 programmer analyst. Heart rate stabilized . Patient was encouraged compliance with medication regimen Renal parameters and electrolytes were closely monitored. Renal ultrasound demonstrated 2.5 x 2.1 cm hypervascular mass in the right renal interpolar region , previously described on sonogram and MRI , concerning for renal neoplasm. No hydronephrosis. Slightly increased renal echogenicity possibly suggestive of early medical renal disease. Creatinine the next day trended down from initial 1.8 down to 1.4. Patient was advised to follow-up with a primary care provider regarding further work-up for renal mass. Due to rapid and unexpected improvement patient condition patient was discharged in 1 day. FINAL DIAGNOSES: Atrial fibrillation with rapid ventricular response Cardiomyopathy with ejection fraction 40% Congestive heart failure Acute on chronic renal failure Hypertension Gout Renal mass Tachybradycardia syndrome DISCHARGE MEDICATIONS: See Medication Reconciliation list. DISCHARGE INSTRUCTIONS: Patient was discharged home. Follow-up with a primary care provider in 1 week. Patient was advised to continue with further work-up for renal mass. Patient was counseled on compliance with medication regimen. I have been assigned to dictate discharge summary for this account. I was not involved in the patient's management. Kasie Villeda NP November 30, 2019 11:34
== END 2019-11-28 13:08 | disposition home or self-care (01) | DRG 309 ==
LOC: EMR 13:18 → 2E 13:32 → EDBEDREQ 15:11
DX: I48.91 Unspecified atrial fibrillation (principal); N17.9 Acute kidney failure, unspecified; I13.0 Hypertensive heart and chronic kidney disease with heart failure and stage 1 through stage 4 chronic kidney disease, or unspecified chronic kidney disease; N18.2 Chronic kidney disease, stage 2 (mild); I50.812 Chronic right heart failure; Z88.8 Allergy status to other drugs, medicaments and biological substances; I34.0 Nonrheumatic mitral (valve) insufficiency; I42.9 Cardiomyopathy, unspecified; N28.89 Other specified disorders of kidney and ureter; I49.5 Sick sinus syndrome; G89.29 Other chronic pain; M79.606 Pain in leg, unspecified; M1A.9XX0 Chronic gout, unspecified, without tophus (tophi)
CPT/HCPCS: 36415; 71045; 76770; 80053; 80162; 80307; 81003; 82550; 83735; 83880; 84100; 84484; 84550; 85007; 85025; 85610; 85730; 93005; 93306; 96374; 96375; 96376; 99285; J8499

== ENCOUNTER 2019-11-30 04:51 | Emergency (ER) | payer MEDICARE, MEDICAID ==
[~2019-11-30 04:51] MED LIST changes: +ELIQUIS2.5 MG PO
--- NOTE | 2019-11-30 05:15 | NUR ---
ED Nurse Note: Pt not in waiting room
--- NOTE | 2019-11-30 05:35 | Emergency Room Report ---
History of Present Illness General Chief Complaint: To Be Triaged Source: Medical Record Present Illness HPI This is a 69-year-old male well-known to me in this ER. He also has been to multiple ERs from here to [place]. He checked it initially complained of his knee swollen but refused to come in. He was seen sleeping in the cafeteria earlier today. He is outside talking to security and on the phone. He was called multiple times but he did not want to check in. I did not see this patient. Allergies: Coded Allergies: DILTIAZEM (Verified Allergy, Severe, Anaphylaxis, 07/03/19) ALLOPURINOL (Unverified Allergy, Unknown, Hives, 11/27/19) patient states Allopurinol makes him itch. Uncoded Allergies: Electrode (Allergy, Intermediate, Icting, 06/27/19) COVID-19 Screening Contact w/high risk pt: No Recent Travel to affected area: No Experienced COVID-19 symptoms?: No Patient History Past Medical History: see triage record, old chart reviewed Past Surgical History: other Pertinent Family History: none Social History: Denies: smoking Immunizations: other Reviewed Nursing Documentation: PMH: Agreed; PSxH: Agreed Nursing Documentation-PMH Hx Cardiac Problems: Yes - Atrial Fibrilation Hx Hypertension: Yes Hx Pacemaker: No - retina detachment in the rigth eye Hx Asthma: No Hx COPD: No Hx Diabetes: No Hx Cancer: No Hx Gastrointestinal Problems: No Hx Dialysis: No Hx Neurological Problems: No Hx Cerebrovascular Accident: No Hx Seizures: No Medical Decision Making Diagnostic Impression: Primary Impression: Chronic leg pain Qualified Codes: M79.604 - Pain in right leg; G89.29 - Other chronic pain ER Course Patient with knee pain. This is a chronic issue. He did not want to come in at this time. I did not see this patient. Status: unchanged Disposition: HOME, SELF-CARE Condition: Stable Referrals: Mariano Alaniz MD (PCP) Rajinder Coyle MD November 30, 2019 05:35
== END 2019-11-30 05:15 | disposition left against medical advice (07) ==
LOC: EMR 05:15
DX: G89.29 Other chronic pain (principal); M79.604 Pain in right leg; I48.91 Unspecified atrial fibrillation; I10 Essential (primary) hypertension; H33.21 Serous retinal detachment, right eye; Z88.8 Allergy status to other drugs, medicaments and biological substances; Z53.21 Procedure and treatment not carried out due to patient leaving prior to being seen by health care provider

== ENCOUNTER 2019-11-30 06:09 | Emergency (ER) | payer MEDICARE, MEDICAID ==
[~2019-11-30] VITALS: Ht 177.8 cm; Wt 99.8 kg
[2019-11-30 06:23] VITALS: BP 102/60
--- NOTE | 2019-11-30 06:23 | NUR ---
ED Nurse Note: Pt ambulated into ED from home CO bilateral leg pain 6/10 with nonpitting edema noted. Pt aao x 4, ambulates with steady gait, VSS. Awaiting ERMD at bedside
[2019-11-30] MEDS ORDERED: Ketorolac 60mg Inj IM ONE (06:30)
--- NOTE | 2019-11-30 06:30 | NUR ---
ED Nurse Note: ERMD at bedside.
--- NOTE | 2019-11-30 06:35 | Emergency Room Report ---
History of Present Illness General Chief Complaint: Edema Source: Patient Present Illness HPI Patient is a 69-year-old male past medical history of CHF, a-fib, and chronic knee pain who presents to the ER requesting a dose of Toradol. Patient states that he was admitted to this hospital for several days due to CHF and atrial fibrillation. He states that he was discharged yesterday after feeling much improved. He states that he is here today due to his chronic knee pain. He denies any trauma. He denies any chest pain or shortness of breath. He denies any fever or chills. Patient states that he has a prescription for a new heart medicine called Cardizem for his atrial fibrillation. Patient denies any focal weakness. Patient is requesting sandwich and 3 cranberry juices. Allergies: Coded Allergies: DILTIAZEM (Verified Allergy, Severe, Anaphylaxis, 07/03/19) ALLOPURINOL (Unverified Allergy, Unknown, Hives, 11/27/19) patient states Allopurinol makes him itch. 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-19 Testing performed INTERNATIONAL CONTROLLER: No Patient History Reviewed Nursing Documentation: PMH: Agreed; PSxH: Agreed Nursing Documentation-PMH Hx Cardiac Problems: Yes - Atrial Fibrilation Hx Hypertension: Yes Hx Pacemaker: No - retina detachment in the rigth eye Hx Asthma: No Hx COPD: No Hx Diabetes: No Hx Cancer: No Hx Gastrointestinal Problems: No Hx Dialysis: No Hx Neurological Problems: No Hx Cerebrovascular Accident: No Hx Seizures: No Review of Systems All Other Systems: negative except mentioned in HPI Physical Exam Vital Signs Date Time Temp Pulse Resp B/P (MAP) Pulse Ox O2 Delivery O2 Flow Rate FiO2 11/30/19 06:13 97.9 55 18 102/60 (74) 94 Room Air Sp02 EP Interpretation: reviewed, normal - low normal General Appearance: no apparent distress, alert, GCS 15, non-toxic Head: normocephalic, atraumatic Eyes: bilateral eye normal inspection, bilateral eye PERRL ENT: hearing grossly normal, normal pharynx, no angioedema, normal voice Neck: full range of motion, supple/symm/no masses Respiratory: chest non-tender, lungs clear, normal breath sounds, speaking full sentences Cardiovascular #1: bradycardia, irregularly irregular Cardiovascular #2: 2+ carotid (R), 2+ carotid (L) Gastrointestinal: normal inspection Rectal: deferred Musculoskeletal: back normal, no calf tenderness, other - bl LE 1+ edema, no ttp, bl knee discomfort, ambulating without difficultly , normal ROM Neurologic: alert, motor strength/tone normal, oriented x3, sensory intact, responsive, speech normal Psychiatric: judgement/insight normal, memory normal, mood/affect normal, no suicidal/homicidal ideation Skin: no rash Lymphatic: no adenopathy Medical Decision Making Diagnostic Impression: Primary Impression: Knee pain ER Course Patient given a dose of intramuscular Toradol. Patient has no acute complaints. He states that these are chronic conditions. He is ambulating without difficulty. His vital signs are stable. After discussing risks and benefits of further diagnostics, treatment plans, as well as indications for and risks of admission, the patient is agreeable to being discharged home. I have explained that their evaluation and treatment in the emergency department today is an important step towards them achieving better health but that their evaluation today is not intended to replace further evaluation and treatment by a physician in their local clinic. I have explained that while the current findings suggest no immediate life threatening emergency they will require further evaluation and treatment by a physician of their choice in their area. They understand that it will be necessary for them to review the final reports of their ED visit with their clinic physician. We have reviewed indications for return to the Emergency Department. I have explained that additional time may need to pass and/or additional testing as an outpatient may be necessary before a definitive diagnosis can be made. They tell me they are willing to follow up as instructed within the timeframe I recommend. They appear to understand what we discussed. Additionally they understand that if they are unable to be seen by an outpatient physician they are welcome, and in fact should, return to the Emergency Department for a repeat evaluation. The patient is stable at time of discharge. Last Vital Signs Date Time Temp Pulse Resp B/P (MAP) Pulse Ox O2 Delivery O2 Flow Rate FiO2 11/30/19 06:23 55 18 Room Air 11/30/19 06:23 97.9 102/60 94 Disposition: HOME, SELF-CARE Condition: Stable Patient Instructions: Edema, [id number], Knee Pain, [id number] Additional Instructions: The patient was provided with discharge instructions, notified to follow-up with a primary care doctor and or specialist in the next 24-48 hours, and to return to the ED if they have worsening of their symptoms. Please note that this report is being documented using [employer] technology. This can lead to erroneous entry secondary to incorrect interpretation by the dictating instrument. Lolis Cano M.D. November 30, 2019 06:35
--- NOTE | 2019-11-30 06:40 | NUR ---
ED Nurse Note: All medications administered. pt tolerated well no ss of distress noted. will continue to monitor.
[2019-11-30 06:45] VITALS: BP 102/60
--- NOTE | 2019-11-30 06:45 | NUR ---
ER DISCHARGE NOTE: Patient is cleared to be discharged home per ERMD, pt is aox4, on room air, with stable vital signs. pt was given dc instructions, pt was able to verbalize understanding, pt id band removed. pt is able to ambulate with steady gait. pt took all belongings.
== END 2019-11-30 06:45 | disposition home or self-care (01) ==
LOC: EMR 06:20
DX: M25.562 Pain in left knee (principal); M25.561 Pain in right knee; I48.91 Unspecified atrial fibrillation; H33.21 Serous retinal detachment, right eye; Z88.8 Allergy status to other drugs, medicaments and biological substances
CPT/HCPCS: 96372; 99283

== ENCOUNTER 2019-12-02 16:58 | Emergency (ER) | payer MEDICARE, MEDICAID ==
[~2019-12-02] VITALS: Ht 177.8 cm; Wt 99.8 kg
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
[2019-12-02] MEDS ORDERED: TYLENOL EXTRA500 MG ORAL (17:22)
[2019-12-02] MEDS ORDERED: CATAPRES0.2 MG ORAL (17:22)
[2019-12-02 17:29] VITALS: BP 135/86
[2019-12-02] MEDS ORDERED: Acetaminophen 500mg (ES) tab ORAL ONE (17:30)
== END 2019-12-02 17:30 | disposition home or self-care (01) ==
LOC: EMR 17:21
DX: R60.0 Localized edema (principal); Z76.0 Encounter for issue of repeat prescription; I11.0 Hypertensive heart disease with heart failure; I50.9 Heart failure, unspecified; Z88.8 Allergy status to other drugs, medicaments and biological substances
CPT/HCPCS: 99282

== ENCOUNTER 2019-12-08 10:52 | Emergency (ER) | payer MEDICARE, MEDICAID ==
[~2019-12-08] VITALS: Ht 177.8 cm; Wt 99.8 kg
[2019-12-08 11:09] VITALS: BP 152/106
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
[2019-12-08] MEDS ORDERED: FUROSEMIDE40 MG ORAL (11:40)
[2019-12-08] MEDS ORDERED: Ketorolac 60mg Inj IM ONE (11:45)
[2019-12-08 11:53] VITALS: BP 131/80
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
== END 2019-12-08 11:54 | disposition home or self-care (01) ==
LOC: EMR 11:03
DX: I48.91 Unspecified atrial fibrillation (principal); I11.0 Hypertensive heart disease with heart failure; I50.9 Heart failure, unspecified; Z88.8 Allergy status to other drugs, medicaments and biological substances
CPT/HCPCS: 96372; 99283

== ENCOUNTER 2019-12-17 22:40 | Emergency (ER) | payer MEDICARE, MEDICAID ==
[~2019-12-17] VITALS: Ht 177.8 cm; Wt 99.8 kg
--- NOTE | 2019-12-17 22:45 | NUR ---
ED Nurse Note: pt ambulated into ed from home co pain in left great toe d/t s/p ingrown toenail. Pt states pain 02/02. VSS no ss of distress noted. Awaiting ermd at bedside.
[2019-12-17 22:48] VITALS: BP 129/76
--- NOTE | 2019-12-17 22:49 | NUR ---
ED Nurse Note: ERMD at bedside
--- NOTE | 2019-12-17 22:52 | NUR ---
ED Nurse Note: all medications administered, pt tolerated well no ss of distress noted. will continue to monitor.
--- NOTE | 2019-12-17 22:55 | Emergency Room Report ---
History of Present Illness General Chief Complaint: Pain Source: Patient Present Illness HPI Patient is a 69-year-old male past medical history of atrial fibrillation, gout , CHF and chronic pain well-known to this emergency room who presents to the ER complaining of ingrown toenail. Patient states that he used to get pedicures done regularly but due to the COVID-19 pandemic he has not had a pedicure in 3 months. Patient states that his left big toe nail has been hurting him. He states that he has been placing topical antibiotics on it he states that he was seen by his doctor and was told that it is not infected. He denies any discharge, fever or chills. He denies any trauma. He denies any redness or swelling. Allergies: Coded Allergies: DILTIAZEM (Verified Allergy, Severe, Anaphylaxis, 07/03/19) ALLOPURINOL (Unverified Allergy, Unknown, Hives, 11/27/19) patient states Allopurinol makes him itch. 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-19 Testing performed PERIANESTHESIA MANAGER: No Patient History Reviewed Nursing Documentation: PMH: Agreed; PSxH: Agreed Nursing Documentation-PMH Past Medical History: No History, Except For Hx Cardiac Problems: Yes - Atrial Fibrilation Hx Hypertension: Yes Hx Pacemaker: No - retina detachment in the rigth eye Hx Asthma: No Hx COPD: No Hx Diabetes: No Hx Cancer: No Hx Gastrointestinal Problems: No Hx Dialysis: No Hx Neurological Problems: No Hx Cerebrovascular Accident: No Hx Seizures: No Review of Systems All Other Systems: negative except mentioned in HPI Physical Exam Vital Signs Date Time Temp Pulse Resp B/P (MAP) Pulse Ox O2 Delivery O2 Flow Rate FiO2 12/17/19 22:43 98.2 55 18 129/76 (93) 98 Room Air Sp02 EP Interpretation: reviewed, normal General Appearance: no apparent distress, alert, GCS 15, non-toxic Head: normocephalic, atraumatic Eyes: bilateral eye normal inspection, bilateral eye PERRL ENT: hearing grossly normal, normal pharynx, no angioedema, normal voice Neck: full range of motion, supple/symm/no masses Respiratory: no accessory muscle use, speaking full sentences Cardiovascular #1: bradycardia, irregularly irregular Gastrointestinal: non tender, soft, overweight Rectal: deferred Musculoskeletal: normal range of motion Neurologic: credit intern III-XII nml as tested, oriented x3 Psychiatric: no suicidal/homicidal ideation Skin: other - Right big toe nail slightly ingrown but skin is easily removable from the nail on the lateral side with the penis no erythema no discharge cap refill is immediate, normal range of motion of the toe Lymphatic: no adenopathy Medical Decision Making Diagnostic Impression: Primary Impression: Ingrown toenail of left foot ER Course After discussing risks and benefits of further diagnostics, treatment plans, as well as indications for and risks of admission, the patient is agreeable to being discharged home. I have explained that their evaluation and treatment in the emergency department today is an important step towards them achieving better health but that their evaluation today is not intended to replace further evaluation and treatment by a physician in their local clinic. I have explained that while the current findings suggest no immediate life threatening emergency they will require further evaluation and treatment by a physician of their choice in their area. They understand that it will be necessary for them to review the final reports of their ED visit with their clinic physician. We have reviewed indications for return to the Emergency Department. I have explained that additional time may need to pass and/or additional testing as an outpatient may be necessary before a definitive diagnosis can be made. They tell me they are willing to follow up as instructed within the timeframe I recommend. They appear to understand what we discussed. Additionally they understand that if they are unable to be seen by an outpatient physician they are welcome, and in fact should, return to the Emergency Department for a repeat evaluation. The patient is stable at time of discharge. Last Vital Signs Date Time Temp Pulse Resp B/P (MAP) Pulse Ox O2 Delivery O2 Flow Rate FiO2 12/17/19 22:48 98.2 55 18 129/76 98 Room Air Disposition: HOME, SELF-CARE Condition: Stable Referrals: Mariano Alaniz MD Patient Instructions: Ingrown Toenail Additional Instructions: The patient was provided with discharge instructions, notified to follow-up with a primary care doctor and or specialist in the next 24-48 hours, and to return to the ED if they have worsening of their symptoms. Please note that this report is being documented using Square technology. This can lead to erroneous entry secondary to incorrect interpretation by the dictating instrument. Lolis Cano M.D. Dec 17, 2019 22:55
[2019-12-17] MEDS ORDERED: Ketorolac 60mg Inj IM ONE (23:00)
[2019-12-17 23:05] VITALS: BP 129/76
--- NOTE | 2019-12-17 23:05 | NUR ---
ER DISCHARGE NOTE: Patient is cleared to be discharged home per ERMD, pt is aox4, 98% on room air, with stable vital signs. pt was given dc instructions, pt was able to verbalize understanding, pt id band removed. pt is able to ambulate with steady gait. pt took all belongings.
[2020-01-11] MEDS ORDERED: VOLTAREN100 G1 TP (07:32)
[2020-01-11] MEDS ORDERED: ACETAMINOPHEN500 M3 ORAL (07:32)
== END 2019-12-17 23:05 | disposition home or self-care (01) ==
LOC: EMR 22:54
DX: L60.0 Ingrowing nail (principal); Z88.8 Allergy status to other drugs, medicaments and biological substances; I11.0 Hypertensive heart disease with heart failure; I50.9 Heart failure, unspecified; E66.3 Overweight; Z68.31 Body mass index [BMI] 31.0-31.9, adult; R00.1 Bradycardia, unspecified
CPT/HCPCS: 96372; 99283

== ENCOUNTER 2019-12-24 17:43 | Emergency (ER) | payer MEDICARE, MEDICAID ==
[~2019-12-24] VITALS: Ht 177.8 cm; Wt 74.8 kg
[2019-12-24 17:48] VITALS: BP 111/82
--- NOTE | 2019-12-24 17:56 | Emergency Room Report ---
History of Present Illness General Chief Complaint: Pain Source: Patient Present Illness HPI 69-year-old male with history of CHF and chronic pedal edema who has been here multiple times for the same concern here complaining of leg edema and is requesting prednisone at this time. Patient has prescription in his hand for prednisone however says avoid all over it. Patient reports that he just got back from [place] and has been sitting in the car for too long. Rates the pain 3 out of 10 without radiation. Denies any tingling or numbness. Is agreeing to a dose of prednisone here as well as Tylenol. Patient is aware that cannot be given Toradol at this time. Patient denies any chest pain, shortness of breath , headache and dizziness. Is sitting comfortably with stable vital signs. Allergies: Coded Allergies: DILTIAZEM (Verified Allergy, Severe, Anaphylaxis, 07/03/19) ALLOPURINOL (Unverified Allergy, Unknown, Hives, 11/27/19) patient states Allopurinol makes him itch. 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-19 Testing performed STEEL ERECTING PUSHER: No Patient History Past Medical History: see triage record Past Surgical History: none Pertinent Family History: none Immunizations: UTD Reviewed Nursing Documentation: PMH: Agreed; PSxH: Agreed Nursing Documentation-PMH Past Medical History: No History, Except For Hx Hypertension: Yes Hx Pacemaker: No - retina detachment in the rigth eye Hx Asthma: No Hx COPD: No Hx Diabetes: No Hx Cancer: No Hx Gastrointestinal Problems: No Hx Dialysis: No Hx Neurological Problems: No Hx Cerebrovascular Accident: No Hx Seizures: No Review of Systems All Other Systems: negative except mentioned in HPI Physical Exam Vital Signs Date Time Temp Pulse Resp B/P (MAP) Pulse Ox O2 Delivery O2 Flow Rate FiO2 12/24/19 17:44 98.8 71 16 111/82 (92) 97 Room Air Sp02 EP Interpretation: reviewed, normal General Appearance: no apparent distress, alert, GCS 15, non-toxic Head: normocephalic, atraumatic Eyes: bilateral eye normal inspection, bilateral eye PERRL ENT: hearing grossly normal, normal pharynx, no angioedema, normal voice Respiratory: chest non-tender, lungs clear, normal breath sounds, speaking full sentences Cardiovascular #1: regular rate, rhythm, no edema, no murmur Gastrointestinal: normal bowel sounds, non tender, soft, non-distended, no guarding, no rebound Rectal: deferred Genitourinary: no CVA tenderness Musculoskeletal: back normal, no calf tenderness, non-tender, swelling - chronic swelling Neurologic: alert, motor strength/tone normal, oriented x3, sensory intact, responsive, speech normal Psychiatric: judgement/insight normal, memory normal, mood/affect normal, no suicidal/homicidal ideation Skin: no rash Lymphatic: no adenopathy Medical Decision Making PA Attestation All my diagnosis and treatment plans were reviewed ad discussed with my supervising physician Dr. Galeano Diagnostic Impression: Primary Impression: Chronic leg pain Additional Impression: Pedal edema ER Course 69-year-old male with history of CHF and chronic pedal edema who has been here multiple times for the same concern here complaining of leg edema and is requesting prednisone at this time. Patient has prescription in his hand for prednisone however says avoid all over it. Patient reports that he just got back from [place] and has been sitting in the car for too long. Rates the pain 3 out of 10 without radiation. Denies any tingling or numbness. Is agreeing to a dose of prednisone here as well as Tylenol. Patient is aware that cannot be given Toradol at this time. Patient denies any chest pain, shortness of breath , headache and dizziness. Is sitting comfortably with stable vital signs. Ddx considered but are not limited to: Chronic neck pain, CHF exacerbation, pedal edema, ankle sprain, Vital signs: are WNL, pt. is afebrile H&PE are most consistent with: Pedal edema and chronic leg pain ORDERS: No imaging necessary there was no fall or injury, Tylenol ED INTERVENTIONS: 1 dose of p.o. prednisone, Tylenol DISCHARGE: At this time pt. is stable for d/c to home. Will provide printed patient care instructions, and any necessary prescriptions. Care plan and follow up instructions have been discussed with the patient prior to discharge. Patient to follow-up prescription prescription. Prednisone, Lasix, and ibuprofen as patient has been here multiple times and gets related to the pharmacy. If worsening symptoms return to the emergency room Last Vital Signs Date Time Temp Pulse Resp B/P (MAP) Pulse Ox O2 Delivery O2 Flow Rate FiO2 12/24/19 17:48 98.8 71 16 111/82 97 Room Air Disposition: HOME, SELF-CARE Condition: Stable Scripts Acetaminophen (Tylenol) 325 Mg Tablet 650 MG ORAL Q6H PRN for Prn Pain/Headache/Temp > 101, #30 TAB 0 Refills Prov: Bailee Rizvi 12/24/19 Referrals: Mariano Alaniz MD (PCP) Patient Instructions: Edema, [id number] Additional Instructions: Follow-up with primary doctor for further evaluation and prescription for prednisone at this time since you have avoided prescription for prednisone to follow-up with your regular doctor in this regard. If worsening symptoms return to the emergency room Bailee Rizvi Dec 24, 2019 17:56
[2019-12-24] MEDS ORDERED: TYLENOL325 MG ORAL (17:57)
[2019-12-24 18:05] VITALS: BP 111/82
[2020-01-16] MEDS ORDERED: CATAPRES0.2 MG ORAL (17:33)
== END 2019-12-24 18:05 | disposition home or self-care (01) ==
LOC: EMR 17:54
DX: R60.0 Localized edema (principal); G89.29 Other chronic pain; Z88.8 Allergy status to other drugs, medicaments and biological substances; I10 Essential (primary) hypertension
CPT/HCPCS: 99282; J7512

== ENCOUNTER 2019-12-29 14:48 | Emergency (ER) | payer MEDICARE, MEDICAID ==
[~2019-12-29] VITALS: Ht 177.8 cm; Wt 99.8 kg
[~2019-12-29 14:48] MED LIST changes: +TYLENOL325 MG ORAL
--- NOTE | 2019-12-29 15:03 | NUR ---
ED Nurse Note: Patient walked in from home c/o chronic bilateral knee pain. Pt able to walk with steady gait. AAOx4, verbally responsive. No SOB. Afebrile. VSS.
[2019-12-29 15:35] VITALS: BP 123/83
--- NOTE | 2019-12-29 15:35 | NUR ---
ED Nurse Note: Pt cleared by ERPA for discharge. DC instructions was given and explained to pt and verbalized understanding of teachings. All medical deviecs such as ID band removed. Pt is AAO x4, ambulatory and left with all personal belongings. Pt took a bus.
--- NOTE | 2019-12-29 16:02 | Emergency Room Report ---
History of Present Illness General Chief Complaint: Lower Extremity Injury Source: Patient Present Illness HPI 69-year-old male with history of CHF and chronic pedal edema who has been here multiple times for the same issue here complaining of worsening chronic pain. Patient is requesting prednisone at this time. Denies any fall or injury. Denies any tingling sensation in legs. Has not taken medication for symptom relief. Denies chest pain, shortness of breath, headache and dizziness. Patient is aware that we cannot give him any Toradol shot at this time due to secondary effects to renal function.. Patient sitting comfortably see vital signs. Denies chest pain or shortness of breath, headache and dizziness, fever and chills. Has range of motion of bilateral lower extremities. Allergies: Coded Allergies: DILTIAZEM (Verified Allergy, Severe, Anaphylaxis, 07/03/19) ALLOPURINOL (Unverified Allergy, Unknown, Hives, 11/27/19) patient states Allopurinol makes him itch. 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: No Patient History Past Medical History: see triage record Past Surgical History: none Pertinent Family History: none Immunizations: UTD Reviewed Nursing Documentation: PMH: Agreed; PSxH: Agreed Nursing Documentation-PMH Past Medical History: No History, Except For Hx Hypertension: Yes Hx Pacemaker: No - retina detachment in the rigth eye Hx Asthma: No Hx COPD: No Hx Diabetes: No Hx Cancer: No Hx Gastrointestinal Problems: No Hx Dialysis: No Hx Neurological Problems: No Hx Cerebrovascular Accident: No Hx Seizures: No Review of Systems All Other Systems: negative except mentioned in HPI Physical Exam Vital Signs Date Time Temp Pulse Resp B/P (MAP) Pulse Ox O2 Delivery O2 Flow Rate FiO2 12/29/19 14:59 98.1 81 20 123/83 (96) 99 Room Air Sp02 EP Interpretation: reviewed, normal General Appearance: well appearing, no apparent distress Head: normocephalic, atraumatic Eyes: bilateral eye normal inspection ENT: hearing grossly normal, normal voice Neck: full range of motion, supple Respiratory: no respiratory distress, no wheezing, speaking full sentences Cardiovascular #1: no edema, no gallop Cardiovascular #2: 2+ dorsalis pedis (R), 2+ dorsalis pedis (L) Gastrointestinal: normal inspection Genitourinary: no CVA tenderness Musculoskeletal: normal inspection, gait/station normal, normal range of motion , digits/nails normal, back normal, no calf tenderness Neurologic: alert, oriented, normal gait Psychiatric: mood/affect normal Skin: no rash Lymphatic: no adenopathy Medical Decision Making PA Attestation All diagnoses and treatment plans were reviewed and discussed with my supervising physician Dr. Gil Diagnostic Impression: Primary Impression: Leg edema ER Course 69-year-old male with history of CHF and chronic pedal edema who has been here multiple times for the same issue here complaining of worsening chronic pain. Patient is requesting prednisone at this time. Denies any fall or injury. Denies any tingling sensation in legs. Has not taken medication for symptom relief. Denies chest pain, shortness of breath, headache and dizziness. Patient is aware that we cannot give him any Toradol shot at this time due to secondary effects to renal function.. Patient sitting comfortably see vital signs. Denies chest pain or shortness of breath, headache and dizziness, fever and chills. Has range of motion of bilateral lower extremities. Ddx considered but are not limited to: foot fracture, foot sprain, foot contusion, foot strain, chronic leg pain, leg edema Vital signs: are WNL, pt. is afebrile H&PE are most consistent with: Chronic leg pain, leg edema ORDERS: None as patient mentions that he has Tylenol at home ED INTERVENTIONS: Prednisone 40 mg p.o. here DISCHARGE: At this time pt. is stable for d/c to home. Will provide printed patient care instructions, and any necessary prescriptions. Care plan and follow up instructions have been discussed with the patient prior to discharge. Patient to follow-up with primary doctor, patient left without any paperwork. Patient is aware that in order to get more prednisone prescribed to him he has a follow-up primary doctor as he has been getting a lot lately from different hospitals. Last Vital Signs Date Time Temp Pulse Resp B/P (MAP) Pulse Ox O2 Delivery O2 Flow Rate FiO2 12/29/19 15:35 98.1 82 20 123/83 99 Room Air Disposition: HOME, SELF-CARE Condition: Stable Referrals: Mariano Alaniz MD (PCP) Bailee Rizvi Dec 29, 2019 16:02
== END 2019-12-29 15:35 | disposition home or self-care (01) ==
LOC: EMR 15:05
DX: R60.0 Localized edema (principal); I10 Essential (primary) hypertension; Z88.8 Allergy status to other drugs, medicaments and biological substances
CPT/HCPCS: 99282; J7512

== ENCOUNTER 2020-01-08 15:58 | Emergency (ER) | payer MEDICARE, MEDICAID ==
[~2020-01-08] VITALS: Ht 177.8 cm; Wt 99.8 kg
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
--- NOTE | 2020-01-08 17:09 | Emergency Room Report ---
History of Present Illness General Chief Complaint: Lower Extremity Injury Source: Patient Present Illness HPI 69-year-old male with history of CHF, chronic leg edema and fluid retention has been here multiple times here complaining of bilateral knee swelling without any fall or injury. Patient is requesting Tylenol for arrival. Patient is already on Lasix and compliant with taking his clonidine and other medication at home. Denies any pain radiation, tingling and numbness. Sitting comfortably with stable vital signs. Denies any chest pain, shortness of breath , headache and dizziness. Denies any tingling numbness. Patient has had multiple visits to the ER at least once a week requesting a Toradol injection which she has been asked a number of times a day to get Toradol as it seriously damaged his kidneys, and has been taking prednisone Motrin. Patient specifically requesting Tylenol today. Allergies: Coded Allergies: DILTIAZEM (Verified Allergy, Severe, Anaphylaxis, 07/03/19) ALLOPURINOL (Unverified Allergy, Unknown, Hives, 11/27/19) patient states Allopurinol makes him itch. 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: Yes - December COVID-19 Screening: Negative COVID-19 COVID-19 Testing Source: nasopharyngeal Patient History Past Medical History: see triage record Past Surgical History: none Pertinent Family History: none Immunizations: UTD Reviewed Nursing Documentation: PMH: Agreed; PSxH: Agreed Nursing Documentation-PMH Past Medical History: No History, Except For Hx Hypertension: Yes Hx Pacemaker: No - retina detachment in the rigth eye Hx Asthma: No Hx COPD: No Hx Diabetes: No Hx Cancer: No Hx Gastrointestinal Problems: No Hx Dialysis: No Hx Neurological Problems: No Hx Cerebrovascular Accident: No Hx Seizures: No Review of Systems All Other Systems: negative except mentioned in HPI Physical Exam Vital Signs Date Time Temp Pulse Resp B/P (MAP) Pulse Ox O2 Delivery O2 Flow Rate FiO2 01/08/20 16:18 98.6 62 19 98 Room Air Sp02 EP Interpretation: reviewed, normal General Appearance: no apparent distress, alert, GCS 15, non-toxic Head: normocephalic, atraumatic Eyes: bilateral eye normal inspection, bilateral eye PERRL ENT: hearing grossly normal, normal pharynx, no angioedema, normal voice Neck: full range of motion, supple/symm/no masses Respiratory: chest non-tender, lungs clear, normal breath sounds, speaking full sentences Cardiovascular #1: regular rate, rhythm, no edema Cardiovascular #2: 2+ dorsalis pedis (R), 2+ dorsalis pedis (L) Gastrointestinal: normal bowel sounds, non tender, soft, non-distended, no guarding, no rebound Genitourinary: no CVA tenderness Musculoskeletal: back normal, no calf tenderness, other - Chronic lower extremity edema bilateral knees Neurologic: alert, motor strength/tone normal, oriented x3, sensory intact, responsive, speech normal Psychiatric: judgement/insight normal, memory normal, mood/affect normal, no suicidal/homicidal ideation Skin: no rash Lymphatic: no adenopathy Medical Decision Making PA Attestation All diagnoses and treatment plans were reviewed and discussed with my supervising physician Dr. Gil Diagnostic Impression: Primary Impression: Leg edema ER Course 69-year-old male with history of CHF, chronic leg edema and fluid retention has been here multiple times here complaining of bilateral knee swelling without any fall or injury. Patient is requesting Tylenol for arrival. Patient is already on Lasix and compliant with taking his clonidine and other medication at home. Denies any pain radiation, tingling and numbness. Sitting comfortably with stable vital signs. Denies any chest pain, shortness of breath , headache and dizziness. Denies any tingling numbness. Patient has had multiple visits to the ER at least once a week requesting a Toradol injection which she has been asked a number of times a day to get Toradol as it seriously damaged his kidneys, and has been taking prednisone Motrin. Patient specifically requesting Tylenol today. Ddx considered but are not limited to: Knee sprain, strain, fracture, contusion , meniscus tear injury Vital signs: are WNL, pt. is afebrile H&PE are most consistent with: Chronic leg edema ORDERS: tylenol ER intervention: tylenol DISCHARGE: At this time pt. is stable for d/c to home. Will provide printed patient care instructions, and any necessary prescriptions. Care plan and follow up instructions have been discussed with the patient prior to discharge. Patient significant as directed, follow primary care provider Dr. Alaniz, worsening symptoms return to emergency room Last Vital Signs Date Time Temp Pulse Resp B/P (MAP) Pulse Ox O2 Delivery O2 Flow Rate FiO2 01/08/20 16:18 98.6 62 19 98 Room Air Disposition: HOME, SELF-CARE Condition: Stable Scripts Acetaminophen* (TYLENOL EXTRA STRENGTH*) 500 Mg Tablet 500 MG ORAL Q8H PRN for Prn Headache/Temp > 101, #30 TAB 0 Refills Prov: Bailee Rizvi 01/08/20 Patient Instructions: Edema, [id number] Additional Instructions: Follow-up with your primary doctor, employment service specialist and block setter gypsum, if worsening symptoms return to emergency room Bailee Rizvi Jan 08, 2020 17:09
[2020-01-08] MEDS ORDERED: TYLENOL EXTRA500 MG ORAL (17:11)
--- NOTE | 2020-01-08 17:32 | NUR ---
ER DISCHARGE NOTE: Patient is cleared to be discharged per PIEDAD RUBIO pt is aox4, on room air, with stable vital signs. pt was given dc and prescription instructions, pt was able to verbalize understanding, pt id band removed without complications. pt is able to ambulate with steady gait. pt took all belongings.
[2020-01-11] MEDS ORDERED: VOLTAREN100 G1 TP (07:32)
[2020-01-11] MEDS ORDERED: ACETAMINOPHEN500 M3 ORAL (07:32)
== END 2020-01-08 17:30 | disposition home or self-care (01) ==
LOC: EMR 17:30
DX: R60.0 Localized edema (principal); I10 Essential (primary) hypertension; Z88.8 Allergy status to other drugs, medicaments and biological substances; I50.9 Heart failure, unspecified; Z79.899 Other long term (current) drug therapy
CPT/HCPCS: 99282

== ENCOUNTER 2020-01-11 05:30 | Emergency (ER) | payer MEDICARE, MEDICAID ==
[~2020-01-11] VITALS: Ht 177.8 cm; Wt 99.8 kg
[2020-01-11] MEDS ORDERED: Ketorolac 60mg Inj IM ONE (06:00)
[2020-01-11] MEDS ORDERED: Ascorbic Acid 500mg tab ORAL ONE (06:00)
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
[2020-01-11 06:10] VITALS: BP 127/85
[2020-01-11] MEDS ORDERED: Furosemide 40mg tab ORAL ONE (07:00)
[2020-01-11 07:05] VITALS: BP 132/86
[2020-01-11] MEDS ORDERED: ACETAMINOPHEN500 M3 ORAL ×2 (07:32)
[2020-01-11] MEDS ORDERED: VOLTAREN100 G1 TP ×2 (07:32)
[2020-01-11 07:53] VITALS: BP 122/81
--- NOTE | 2020-01-11 12:20 | Diagnostic Imaging Report ---
Indication: Reason For Exam: PAIN Technique: 4 views of the left knee Comparison: None Findings: Exam somewhat limited as lateral view is not true lateral. No acute fractures. No dislocations. The joint spaces are preserved. No definite suprapatellar effusion. Impression: Somewhat limited exam. No definite acute process
--- NOTE | 2020-01-11 12:21 | Diagnostic Imaging Report ---
Indication: Ankle pain Technique: 3 views of the left ankle Comparison: none Findings: Small plantar spur noted. No acute fractures. No dislocations. The joint spaces are preserved Impression: No acute bony trauma
--- NOTE | 2020-01-11 12:23 | Diagnostic Imaging Report ---
Indication: Reason For Exam: PAIN Technique: 3 views left foot Comparison: none Findings: There is hallux valgus and bunion formation. There is metatarsus adductus. There is hammertoe deformity of the second through fifth digits. No acute fractures. No dislocations. The joint spaces are preserved Impression: No acute bony trauma Deformities as described
[2020-01-16] MEDS ORDERED: CATAPRES0.2 MG ORAL (17:33)
== END 2020-01-11 07:55 | disposition home or self-care (01) ==
LOC: EMR 05:49
DX: R60.9 Edema, unspecified (principal); M25.562 Pain in left knee; M25.572 Pain in left ankle and joints of left foot; I10 Essential (primary) hypertension; Z88.8 Allergy status to other drugs, medicaments and biological substances
CPT/HCPCS: 96372; 99284

== ENCOUNTER 2020-01-28 09:21 | Emergency (ER) | payer MEDICARE, MEDICAID ==
[~2020-01-28] VITALS: Ht 177.8 cm; Wt 99.8 kg
[2020-01-28 09:45] VITALS: BP 138/98
[2020-01-28] MEDS ORDERED: Ketorolac 60mg Inj IM ONE (09:45)
--- NOTE | 2020-01-28 09:48 | Emergency Room Report ---
History of Present Illness General Chief Complaint: Pain Source: Patient Present Illness HPI Patient is a 69-year-old male presents after increased bilateral knee pain. Prior history of arthritis as well as gout. Had multiple prior ER visits for similar symptoms in the past. Denies any fever. Denies any shortness of breath or chest discomfort. Prior history of congestive heart failure and atrial fibrillation. Reports having increased pain to the left great toe. Had previously been referred to podiatry. Had previous imaging studies performed at this emergency department. There is no evidence of fracture at that time. Allergies: Coded Allergies: DILTIAZEM (Verified Allergy, Severe, Anaphylaxis, 07/03/19) ALLOPURINOL (Unverified Allergy, Unknown, Hives, 11/27/19) patient states Allopurinol makes him itch. 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 01/11 Patient History Past Medical History: see triage record Reviewed Nursing Documentation: PMH: Agreed; PSxH: Agreed Nursing Documentation-PMH Past Medical History: No History, Except For Hx Hypertension: Yes Hx Pacemaker: No - retina detachment in the rigth eye Hx Asthma: No Hx COPD: No Hx Diabetes: No Hx Cancer: No Hx Gastrointestinal Problems: No Hx Dialysis: No Hx Neurological Problems: No Hx Cerebrovascular Accident: No Hx Seizures: No Review of Systems All Other Systems: negative except mentioned in HPI Physical Exam Vital Signs Date Time Temp Pulse Resp B/P (MAP) Pulse Ox O2 Delivery O2 Flow Rate FiO2 01/28/20 09:28 98.4 88 18 138/98 (111) 99 Room Air General Appearance: well appearing, no apparent distress, alert, GCS 15, Chronically Ill Head: normocephalic, atraumatic ENT: hearing grossly normal, normal voice Neck: full range of motion, supple Respiratory: lungs clear, no respiratory distress, speaking full sentences Cardiovascular #1: no edema Gastrointestinal: normal inspection Musculoskeletal: normal inspection, no calf tenderness, other - Left great toe with normal color without evidence of erythema, ingrown toenail and left great toe with metatarsal deviation laterally. Neurologic: alert, motor strength/tone normal, spooler operator III-XII nml as tested, oriented x3, normal gait Psychiatric: normal inspection, judgement/insight normal, mood/affect normal Skin: normal inspection, normal color, no rash Medical Decision Making Diagnostic Impression: Primary Impression: Ingrown toenail of left foot Additional Impression: Chronic gout ER Course Patient presented for bilateral lower extremity discomfort and left great toe pain. Patient appears to be stable from a respiratory and cardiac standpoint. There is no evidence of vascular compromise to his feet. Patient appears to have a exacerbation of chronic pain to these areas. He was given low-dose injection of Toradol for pain. He was advised to follow-up with for recheck. The patient is advised to follow up with primary care doctor in 1-2 days. Patient is advised to return if any worsening condition or if any changes in status that are concerning. This report is dictated with Dragon Inside store mgr software which may occasionally lead to discrepancies related to use of this software. Last Vital Signs Date Time Temp Pulse Resp B/P (MAP) Pulse Ox O2 Delivery O2 Flow Rate FiO2 01/28/20 09:28 98.4 88 18 138/98 (111) 99 Room Air Status: improved Disposition: HOME, SELF-CARE Condition: Stable Scripts Diclofenac Sodium (VOLTAREN) 100 Gm Gel..gram. 5 GM TP DAILY for pain, #100 GM Prov: Fahad Castillo MD 01/28/20 Referrals: Mariano Alaniz MD (PCP) Fahad Castillo MD Jan 28, 2020 09:48
[2020-01-28] MEDS ORDERED: VOLTAREN100 G1 TP (09:53)
--- NOTE | 2020-01-28 10:07 | NUR ---
ED Nurse Note: Patient walked into ED from home c/o bilateral 10/10 aching knee pain. Patient states he normally gets a Toradol shot and Tylenol. Patient AxO x 4, no s/s of acute distress.
[2020-01-28 10:35] VITALS: BP 138/98
--- NOTE | 2020-01-28 10:35 | NUR ---
ER DISCHARGE NOTE: Patient is cleared to be discharged per Dr. Castillo, pt is aox4, on room air, with stable vital signs. pt was given dc and prescription instructions, pt was able to verbalize understanding, pt id bandremoved. pt is able to ambulate with steady gait. pt took all belongings.
== END 2020-01-28 10:35 | disposition home or self-care (01) ==
LOC: EMR 09:39
DX: L60.0 Ingrowing nail (principal); M1A.9XX0 Chronic gout, unspecified, without tophus (tophi); I50.9 Heart failure, unspecified; I10 Essential (primary) hypertension; Z88.8 Allergy status to other drugs, medicaments and biological substances
CPT/HCPCS: 96372; 99283

== ENCOUNTER 2020-02-03 15:58 | Emergency (ER) | payer MEDICARE, MEDICAID ==
[~2020-02-03] VITALS: Ht 177.8 cm; Wt 95.3 kg
[2020-02-03] MEDS ORDERED: ELIQUIS2.5 MG PO (16:23)
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
[2020-02-03] MEDS ORDERED: Ketorolac 30mg Inj IM ONE (16:30)
[2020-02-03] MEDS ORDERED: Ketorolac 30mg Inj ONE (16:32)
[2020-02-03 16:40] VITALS: BP 106/86
--- NOTE | 2020-02-03 16:43 | NUR ---
ED Nurse Note: Patient walked into ED requesting Toradol shot for chronic bilateral knee pain. Patient AxO x 4, no s/s of acute distress.
== END 2020-02-03 16:40 | disposition home or self-care (01) ==
LOC: EMR 16:18
DX: M25.572 Pain in left ankle and joints of left foot (principal); Z88.8 Allergy status to other drugs, medicaments and biological substances; I10 Essential (primary) hypertension; Z76.0 Encounter for issue of repeat prescription
CPT/HCPCS: 96372; 99283; J1885

== ENCOUNTER 2020-02-12 05:41 | Emergency (ER) | payer MEDICARE, MEDICAID ==
[~2020-02-12] VITALS: Ht 170.2 cm; Wt 86.2 kg
[2020-02-12] MEDS ORDERED: Ketorolac 30mg Inj IM ONE (06:15)
--- NOTE | 2020-02-12 06:17 | Emergency Room Report ---
History of Present Illness General Chief Complaint: Pain Source: Patient Present Illness HPI Disclaimer: Please note that this report is being documented using DRAGON technology. This can lead to erroneous entry secondary to incorrect interpretation by the dictating instrument. HPI: 69-year-old male history of atrial fibrillation, venous insufficiency, gout , chronic knee pain presents for evaluation of bilateral knee pain and right hand pain. The patient states he just returned from [facility] where he was admitted over the weekend for knee pain and mild CHF. He states he was given a prescription for tramadol for his bilateral chronic knee pain but was unable to fill it as an [id number] prescription. He is requesting intramuscular Toradol shot. Ambulating without difficulty. No new injury reported. Denies severe swelling, redness or effusion. Also complaining of pain over the right hand. States 3 weeks ago he was admitted to [facility] IV line in his hand blue causing severe swelling. States that is significantly improved and swelling is almost resolved. Full range of motion in the hand and wrist. No sign of infection. States over his recent hospitalization this weekend an ultrasound was done of the upper extremity showing no clots or other issues. Patient otherwise denies fever, chills, chest pain, shortness of breath, cough, vomiting, diarrhea or other symptoms at this time. PMH: Atrial fibrillation, venous insufficiency, gout, hypertension PSH: Reviewed Allergies: Purinol, diltiazem, certain adhesive Social Hx: Reviewed Allergies: Coded Allergies: DILTIAZEM (Verified Allergy, Severe, Anaphylaxis, 07/03/19) ALLOPURINOL (Unverified Allergy, Unknown, Hives, 11/27/19) patient states Allopurinol makes him itch. 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-19 Testing performed EDUCATIONAL SPECIALIST: No Nursing Documentation-PMH Hx Hypertension: Yes Hx Pacemaker: No - retina detachment in the rigth eye Hx Asthma: No Hx COPD: No Hx Diabetes: No Hx Cancer: No Hx Gastrointestinal Problems: No Hx Dialysis: No Hx Neurological Problems: No Hx Cerebrovascular Accident: No Hx Seizures: No Review of Systems All Other Systems: negative except mentioned in HPI Physical Exam Vital Signs Date Time Temp Pulse Resp B/P (MAP) Pulse Ox O2 Delivery O2 Flow Rate FiO2 02/12/20 06:02 97.9 110 18 117/90 (99) 98 Room Air General: Awake and alert, no acute distress HEENT: NC/AT. EOMI. CV: Irregularly irregular rhythm. Normal rate Resp: Lungs clear to auscultation bilaterally. Normal work of breathing, no cough Skin: Intact. No abrasions, laceration or rash over the exposed skin MSK: Normal tone and bulk. Moving all extremities. No obvious deformity. Full range of motion in the right digits and wrist. No significant edema. No erythema or skin breakdown. Ambulating without difficulty. No focal tenderness palpable in the knees. No deformity. Patella is anatomic position. Neuro: Awake and alert. Mentating appropriately Medical Decision Making Diagnostic Impression: Primary Impression: Knee pain Additional Impression: Hand pain ER Course 69-year-old male history of gout, chronic knee pain presents for evaluation of bilateral knee aching and right hand pain. No evidence of acute injury. The patient is requesting an intramuscular Toradol shot as he was unable to fill his tramadol prescription which was given to him from hospital in [place]. He will see his PMD later today for further prescriptions. No evidence of acute injury, infection, gouty flare at this time. Will provide Toradol shot and discharge patient to follow-up with PMD. Advised to return with new or worsening symptoms. He understands and agrees with this treatment plan. Last Vital Signs Date Time Temp Pulse Resp B/P (MAP) Pulse Ox O2 Delivery O2 Flow Rate FiO2 02/12/20 06:02 97.9 110 18 117/90 (99) 98 Room Air Disposition: HOME, SELF-CARE Condition: Stable Additional Instructions: Please follow-up with your primary care doctor in the next 1 to 3 days to discuss this emergency department visit and for reevaluation. If you have any new or worsening symptoms please return to the emergency department for reevaluation. Please note that this report is being documented using Worldcoo technology. This can lead to erroneous entry secondary to incorrect interpretation by the dictating instrument. Sebastian Payton MD Feb 12, 2020 06:17
[2020-02-12 06:35] VITALS: BP 117/90
== END 2020-02-12 06:35 | disposition home or self-care (01) ==
LOC: EMR 06:02
DX: M25.562 Pain in left knee (principal); M25.561 Pain in right knee; M25.541 Pain in joints of right hand; I10 Essential (primary) hypertension; Z88.8 Allergy status to other drugs, medicaments and biological substances
CPT/HCPCS: 96372; 99283; J1885

== ENCOUNTER 2020-03-01 14:05 | Emergency (ER) | payer MEDICARE, MEDICAID ==
[~2020-03-01] VITALS: Ht 177.8 cm; Wt 90.7 kg
[2020-03-01 14:13] VITALS: BP 114/89
--- NOTE | 2020-03-01 14:24 | Emergency Room Report ---
History of Present Illness General Chief Complaint: Pain Source: Patient Present Illness HPI Patient is a 69-year-old male who presents after increased bilateral leg pain. Had recently been discharged from hospital. Reports having increased pain to both knees. Prior history of gout. Patient is well-known to me from other visits. Gradual onset of symptoms. Patient states that he had previous similar symptoms in the past and has multiple ER visits for same. He is requesting shot of pain medication. Patient had been taking medications as previous. Allergies: Coded Allergies: DILTIAZEM (Verified Allergy, Severe, Anaphylaxis, 03/01/20) ALLOPURINOL (Unverified Allergy, Unknown, Hives, 03/01/20) patient states Allopurinol makes him itch. 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 COVID-19 Screening: Negative COVID-19 COVID-19 Testing Source: hospital Patient History Past Medical History: see triage record Reviewed Nursing Documentation: PMH: Agreed; PSxH: Agreed Nursing Documentation-PMH Past Medical History: No History, Except For Hx Hypertension: Yes Hx Pacemaker: No - retina detachment in the rigth eye Hx Asthma: No Hx COPD: No Hx Diabetes: No Hx Cancer: No Hx Gastrointestinal Problems: No Hx Dialysis: No Hx Neurological Problems: No Hx Cerebrovascular Accident: No Hx Seizures: No Review of Systems All Other Systems: negative except mentioned in HPI Physical Exam Vital Signs Date Time Temp Pulse Resp B/P (MAP) Pulse Ox O2 Delivery O2 Flow Rate FiO2 03/01/20 14:08 97.5 61 18 114/89 (97) 98 Room Air General Appearance: well appearing, no apparent distress, alert, GCS 15 Head: normocephalic, atraumatic Eyes: bilateral eye other - disConjugate gaze ENT: hearing grossly normal, normal voice Neck: full range of motion, supple Respiratory: lungs clear, no respiratory distress, speaking full sentences Cardiovascular #1: normal inspection Gastrointestinal: normal inspection Musculoskeletal: normal inspection, no calf tenderness Neurologic: alert, motor strength/tone normal, derrick engineer III-XII nml as tested, normal gait Psychiatric: mood/affect normal Skin: no rash Medical Decision Making Diagnostic Impression: Primary Impression: Chronic gout ER Course Presented for lower extremity pain. Differential diagnosis include was not limited to arthritis, gout, among others.Patient was noted to have some prior history of gout and this appears to be a chronic pain flare. Patient was given medication for pain. He has no evidence of erythema or induration to his extremities. Patient appears to be stable for outpatient evaluation. Patient will follow-up with Dr. Alaniz . He was advised to return if worse. This medical record is generated with Buyt.In planetarium sky show technician software. There may be some planetarium sky show technician discrepancies related to use of this software Last Vital Signs Date Time Temp Pulse Resp B/P (MAP) Pulse Ox O2 Delivery O2 Flow Rate FiO2 03/01/20 14:13 97.5 79 18 114/89 98 Room Air Status: improved Disposition: HOME, SELF-CARE Condition: Stable Fahad Castillo MD Mar 01, 2020 14:24
[2020-03-01] MEDS ORDERED: Ketorolac 60mg Inj IM ONE (14:30)
[2020-03-01 14:31] VITALS: BP 120/81
== END 2020-03-01 14:30 | disposition home or self-care (01) ==
LOC: EMR 14:25
DX: M1A.9XX0 Chronic gout, unspecified, without tophus (tophi) (principal); M25.562 Pain in left knee; M25.561 Pain in right knee; I10 Essential (primary) hypertension; Z88.8 Allergy status to other drugs, medicaments and biological substances
CPT/HCPCS: 96372; 99283

== ENCOUNTER 2020-03-04 12:20 | Emergency (ER) | payer MEDICARE, MEDICAID ==
[~2020-03-04] VITALS: Ht 177.8 cm; Wt 90.7 kg
--- NOTE | 2020-03-04 12:32 | NUR ---
ED Nurse Note: Pt ambulated to ed c/o bilateral leg pain. pt was seen at [facility] earlier today for same reason.
--- NOTE | 2020-03-04 12:35 | Emergency Room Report ---
History of Present Illness General Chief Complaint: Lower Extremity Injury Source: Patient Present Illness HPI Disclaimer: Please note that this report is being documented using DRAGON technology. This can lead to erroneous entry secondary to incorrect interpretation by the dictating instrument. HPI: 69-year-old male history of venous insufficiency, gout presents for evaluation of bilateral leg pain. Patient states he was recently released from [facility] 2 days ago after a stay for lower extremity edema and CHF. Denies chest pain, shortness of breath, palpitations. States he was seen by his PMD who recently adjusted his Lasix. He has not been wearing his compression stockings. He is complaining of pain in both legs. No new injury reported. He has a history of chronic gout but denies unilateral swelling, redness or specific joint pain. He is requesting a shot of Toradol. He is well -known to the emergency department and typically presents with similar complaints. PMH: Atrial fibrillation, venous insufficiency, gout, hypertension PSH: Reviewed Allergies: Allopurinol, diltiazem, certain adhesive Social Hx: Reviewed Allergies: Coded Allergies: DILTIAZEM (Verified Allergy, Severe, Anaphylaxis, 03/01/20) ALLOPURINOL (Unverified Allergy, Unknown, Hives, 03/01/20) patient states Allopurinol makes him itch. 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 COVID-19 Screening: Negative COVID-19 COVID-19 Testing Source: clinic Nursing Documentation-PMH Hx Hypertension: Yes Hx Pacemaker: No - retina detachment in the rigth eye Hx Asthma: No Hx COPD: No Hx Diabetes: No Hx Cancer: No Hx Gastrointestinal Problems: No Hx Dialysis: No Hx Neurological Problems: No Hx Cerebrovascular Accident: No Hx Seizures: No Review of Systems All Other Systems: negative except mentioned in HPI Physical Exam Vital Signs Date Time Temp Pulse Resp B/P (MAP) Pulse Ox O2 Delivery O2 Flow Rate FiO2 03/04/20 12:26 97.5 78 19 154/93 (113) 99 Room Air General: Awake and alert, no acute distress HEENT: NC/AT. EOMI. Resp: Normal work of breathing Skin: Intact. No abrasions, laceration or rash over the exposed skin MSK: Normal tone and bulk. Moving all extremities. No obvious deformity. Bilateral 2+ edema. No unilateral swelling. Neuro: Awake and alert. Mentating appropriately Medical Decision Making Diagnostic Impression: Primary Impression: Chronic leg pain ER Course Is a 69-year-old male history of atrial fibrillation on anticoagulants, CHF and chronic lower extremity edema as well as chronic gout presenting for bilateral lower extremity pain. No injury reported. Patient is ambulatory and shows no signs of fluid overload, rapid atrial fibrillation or other significant pathology. Recently released from [facility] and has seen his PMD had his medications adjusted. Requesting a shot of Toradol which we will provide. He is stable for outpatient follow-up otherwise does not require emergent work-up in the ED at this time. Discussed reasons to return to the emergency department. He understands and agrees with this treatment plan. Last Vital Signs Date Time Temp Pulse Resp B/P (MAP) Pulse Ox O2 Delivery O2 Flow Rate FiO2 03/04/20 12:26 97.5 78 19 154/93 (113) 99 Room Air Disposition: HOME, SELF-CARE Condition: Stable Additional Instructions: Please follow-up with your primary care doctor in the next 1 to 3 days to discuss this emergency department visit and for reevaluation. If you have any new or worsening symptoms please return to the emergency department for reevaluation. Please note that this report is being documented using InCast technology. This can lead to erroneous entry secondary to incorrect interpretation by the dictating instrument. Sebastian Payton MD Mar 04, 2020 12:35
[2020-03-04 12:38] VITALS: BP 147/89
[2020-03-04] MEDS ORDERED: Ketorolac 30mg Inj IM ONE (12:45)
== END 2020-03-04 12:35 | disposition home or self-care (01) ==
LOC: EMR 12:35
DX: M79.605 Pain in left leg (principal); M79.604 Pain in right leg; G89.29 Other chronic pain; I50.9 Heart failure, unspecified; Z88.8 Allergy status to other drugs, medicaments and biological substances; I10 Essential (primary) hypertension; R60.0 Localized edema
CPT/HCPCS: 96372; 99283; J1885

== ENCOUNTER → 2020-03-30 | Emergency (ER) | payer MEDICARE, MEDICAID ==
[~2020-03-30] VITALS: Ht 177.8 cm; Wt 98.0 kg
[~2020-03-30] MED LIST changes: +Ketorolac 30mg Inj IM ONE
--- NOTE | 2020-03-30 08:19 | Emergency Room Report ---
History of Present Illness General Chief Complaint: Knee pain Source: Patient Present Illness HPI Disclaimer: Please note that this report is being documented using DRAGON technology. This can lead to erroneous entry secondary to incorrect interpretation by the dictating instrument. HPI: 69-year-old male history of gout, osteoarthritis presents for bilateral knee pain. History of chronic pain and venous insufficiency with lower extremity edema. He was just released from [facility] 1 hour ago. States he was seen in the emergency department for shortness of breath and given IV Lasix. He provides a copy of his lab work showing a creatinine of 1.3 and a BUN of 22. This is the patient's baseline. His BN peptide was 271 and chest x- ray results show no vascular congestion or other findings. Other labs within normal limits. He states that prior to discharge from the emergency department he forgot to ask for a shot of Toradol for his chronic knee pain which he typically gets from the emergency department. He is scheduled to follow-up with his PMD this week. His Lasix was recently increased from 80 mg to 120 mg daily. No other complaints on the patient at this time. No recent fall or injury. Nothing makes the pain better nothing makes it worse. PMH: Atrial fibrillation, venous insufficiency, gout, arthritis, hypertension, CHF PSH: Reviewed Allergies: Allopurinol, diltiazem, certain adhesive Allergies: Coded Allergies: DILTIAZEM (Verified Allergy, Severe, Anaphylaxis, 03/01/20) ALLOPURINOL (Unverified Allergy, Unknown, Hives, 03/01/20) patient states Allopurinol makes him itch. Uncoded Allergies: Electrode (Allergy, Intermediate, Icting, 06/27/19) COVID-19 Screening Contact w/high risk pt: No Recent Travel to affected area: No Experienced COVID-19 symptoms?: No Nursing Documentation-PMH Hx Hypertension: Yes Hx Pacemaker: No - retina detachment in the rigth eye Hx Asthma: No Hx COPD: No Hx Diabetes: No Hx Cancer: No Hx Gastrointestinal Problems: No Hx Dialysis: No Hx Neurological Problems: No Hx Cerebrovascular Accident: No Hx Seizures: No Review of Systems All Other Systems: negative except mentioned in HPI Physical Exam General: Awake and alert, no acute distress HEENT: NC/AT. EOMI. Resp: Normal work of breathing Skin: Intact. No abrasions, laceration or rash over the exposed skin MSK: Normal tone and bulk. Moving all extremities. No obvious deformity. Patella is in anatomic position. No signs of trauma. Chronic lower extremity edema with stasis changes. Unchanged from previous exam. Neuro: Awake and alert. Mentating appropriately Medical Decision Making Diagnostic Impression: Primary Impression: Chronic leg pain ER Course 69-year-old male well-known to the ED presents for evaluation of bilateral knee pain. He is requesting a shot of intramuscular Toradol. Is a chronic issue the patient no new injury reported and given his recent labs from [facility] performed several hours ago no indication for acute labs or imaging at this time. He is in no respiratory distress and shows no sign of rapid atrial fibrillation. Renal function is at baseline. We will give him a shot of intramuscular Toradol and follow-up with PMD on an outpatient basis. He understands and agrees with this treatment plan. Disposition: HOME, SELF-CARE Condition: Stable Sebastian Payton MD Mar 30, 2020 08:19
[2020-03-30 08:28] VITALS: BP 138/83
--- NOTE | 2020-03-30 08:30 | NUR ---
ED Nurse Note: Pt ambulated to ED assisted with a cane from home d/t chronic pain on bilateral lower extremities. Pt is AOx4, calm and cooperative, VSS, on RA, afebrile ontriage. Pt denies any recent trauma/injury on the affected site.
[2020-03-30 08:42] VITALS: BP 136/82
== END | disposition home or self-care (01) ==
LOC: EMR 08:26
DX: M25.562 Pain in left knee (principal); M25.561 Pain in right knee; G89.29 Other chronic pain; R60.0 Localized edema; I11.0 Hypertensive heart disease with heart failure; I50.9 Heart failure, unspecified; Z88.8 Allergy status to other drugs, medicaments and biological substances; M19.90 Unspecified osteoarthritis, unspecified site
CPT/HCPCS: 96372; 99283; J1885

== ENCOUNTER 2020-04-01 20:40 | Emergency (ER) | payer MEDICARE, MEDICAID ==
[~2020-04-01] VITALS: Ht 177.8 cm; Wt 113.4 kg
[~2020-04-01 20:40] MED LIST changes: -Ketorolac 30mg Inj IM ONE
[2020-04-01] MEDS ORDERED: Acetaminophen 500mg (ES) tab ORAL ONE (21:00)
[2020-04-01] MEDS ORDERED: TYLENOL EXTRA500 MG ORAL (21:01)
[2020-04-01 21:05] VITALS: BP 139/98
--- NOTE | 2020-04-03 07:44 | Emergency Room Report ---
History of Present Illness General Chief Complaint: Lower Extremity Injury Source: Patient Present Illness HPI 69-year-old male presents to ED for evaluation. Complaining of bilateral knee pain and swelling. History of arthritis and gout. States he has been here many times for the same problem. Denies any fall or injury. States he needs a pain shot. States he has a PMD. Pain is throbbing, 8 out of 10, nonradiating. Is able to bear weight. No other aggravating relieving factors. Denies any other associated symptoms Allergies: Coded Allergies: DILTIAZEM (Verified Allergy, Severe, Anaphylaxis, 03/01/20) ALLOPURINOL (Unverified Allergy, Unknown, Hives, 03/01/20) patient states Allopurinol makes him itch. 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 Patient History Past Medical History: HTN Past Surgical History: none Pertinent Family History: none Social History: Denies: smoking, alcohol use, drug use Immunizations: UTD Reviewed Nursing Documentation: PMH: Agreed; PSxH: Agreed Nursing Documentation-PMH Hx Hypertension: Yes Hx Pacemaker: No - retina detachment in the rigth eye Hx Asthma: No Hx COPD: No Hx Diabetes: No Hx Cancer: No Hx Gastrointestinal Problems: No Hx Dialysis: No Hx Neurological Problems: No Hx Cerebrovascular Accident: No Hx Seizures: No Review of Systems All Other Systems: negative except mentioned in HPI Physical Exam Vital Signs Date Time Temp Pulse Resp B/P (MAP) Pulse Ox O2 Delivery O2 Flow Rate FiO2 04/01/20 20:43 98.4 82 18 142/98 (113) 96 Room Air Sp02 EP Interpretation: reviewed, normal General Appearance: no apparent distress, alert, GCS 15, non-toxic Head: normocephalic, atraumatic Eyes: bilateral eye normal inspection, bilateral eye PERRL ENT: hearing grossly normal, normal pharynx, no angioedema, normal voice Neck: full range of motion, supple/symm/no masses Respiratory: chest non-tender, lungs clear, normal breath sounds, speaking full sentences Cardiovascular #1: regular rate, rhythm, no edema Cardiovascular #2: 2+ carotid (R), 2+ carotid (L), 2+ radial (R), 2+ radial (L), 2+ dorsalis pedis (R), 2+ dorsalis pedis (L) Gastrointestinal: normal bowel sounds, non tender, soft, non-distended, no guarding, no rebound Rectal: deferred Genitourinary: normal inspection, no CVA tenderness Musculoskeletal: back normal, normal range of motion, gait/station normal, tender Neurologic: alert, motor strength/tone normal, oriented x3, sensory intact, responsive, speech normal Psychiatric: judgement/insight normal, memory normal, mood/affect normal, no suicidal/homicidal ideation Reflexes: 3+ bicep (R), 3+ bicep (L), 3+ tricep (R), 3+ tricep (L), 3+ knee (R), 3+ knee (L) Lymphatic: no adenopathy Medical Decision Making Diagnostic Impression: Primary Impression: Chronic gout Qualified Codes: [id number] - Idiopathic chronic gout, multiple sites, without tophus (tophi) ER Course Hospital Course 69-year-old male presents to ED complaining of knee pain no trauma Differential diagnoses include: Fracture, dislocation, sprain, contusion, bursitis Clinical course Patient placed on stretcher. After initial history, physical exam reveals a middle-aged male in no acute distress. Has noticeable swelling to both knees and legs. Patient resting comfortably. Vitals stable. [place] [facility] [place] been here multiple times for similar presentation often at night. Patient typically requested Toradol shot. Patient received a Toradol shot 2 days prior. I discussed with him given his age and renal issues he should not be receiving Toradol shot so frequently. I have had this discussion with him numerous times myself. Patient will be given Tylenol today. Patient says he will follow-up with his PMD Diagnosis - chronic gout stable and discharged to home with prescription for Tylenol. Followup with PMD. Return to ED if symptoms recur or worsen Last Vital Signs Date Time Temp Pulse Resp B/P (MAP) Pulse Ox O2 Delivery O2 Flow Rate FiO2 04/01/20 21:05 98.4 80 18 139/98 96 Room Air Status: improved Disposition: HOME, SELF-CARE Condition: Stable Scripts Acetaminophen* (TYLENOL EXTRA STRENGTH*) 500 Mg Tablet 500 MG ORAL Q8H PRN for Prn Headache/Temp > 101, #30 TAB 0 Refills Prov: Mateo Galeano MD 04/01/20 Referrals: Mariano Alaniz MD (PCP) Patient Instructions: Chronic Pain Mateo Galeano MD Apr 03, 2020 07:44
== END 2020-04-01 21:05 | disposition home or self-care (01) ==
LOC: EMR 20:59
DX: M1A.09X0 Idiopathic chronic gout, multiple sites, without tophus (tophi) (principal); I10 Essential (primary) hypertension; Z88.8 Allergy status to other drugs, medicaments and biological substances
CPT/HCPCS: 99282

== ENCOUNTER 2020-04-02 22:15 | Emergency (ER) | payer MEDICARE, MEDICAID ==
[~2020-04-02] VITALS: Ht 177.8 cm; Wt 99.8 kg
--- NOTE | 2020-04-02 22:20 | NUR ---
ED Nurse Note: Pt ambulated to ED from home c/o bilateral knee pain for 3 days, pt's bilateral Lower extremeties are swollen, +2 edema. Pt has a long hx of edema. Pt states he is compliant with Lasix therapy. Pt is A&OX4, VSS.
[2020-04-02] MEDS ORDERED: Ketorolac 30mg Inj IM ONE (23:15)
[2020-04-02 23:25] VITALS: BP 142/90
--- NOTE | 2020-04-03 03:35 | Emergency Room Report ---
History of Present Illness General Chief Complaint: Pain Present Illness HPI 69-year-old male with history of chronic edema on 6 here with bilateral leg pain. Patient has a follow-up appoint with his primary care physician tomorrow regarding his Lasix dosage but says that the chronic pain in his lower ex tremities from his edema and his gout "just needed some medicine tonight." Patient was here yesterday with similar complaints. Patient recently had lab work done at [facility] which showed normal BUN and creatinine and patient says "I just wanted the 1 dose of the Toradol shot just to get me to my appointment tomorrow. Says the pain is the same pain as the chronic gout pain that he usually gets. Denies unilateral leg swelling, chest pain, shortness of breath, cough. Allergies: Coded Allergies: DILTIAZEM (Verified Allergy, Severe, Anaphylaxis, 03/01/20) ALLOPURINOL (Unverified Allergy, Unknown, Hives, 03/01/20) patient states Allopurinol makes him itch. 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 Nursing Documentation-PMH Hx Hypertension: Yes Hx Pacemaker: No - retina detachment in the rigth eye Hx Asthma: No Hx COPD: No Hx Diabetes: No Hx Cancer: No Hx Gastrointestinal Problems: No Hx Dialysis: No Hx Neurological Problems: No Hx Cerebrovascular Accident: No Hx Seizures: No Review of Systems All Other Systems: negative except mentioned in HPI Physical Exam Vital Signs Date Time Temp Pulse Resp B/P (MAP) Pulse Ox O2 Delivery O2 Flow Rate FiO2 04/02/20 22:19 98.1 77 20 153/93 (113) 97 Room Air Sp02 EP Interpretation: reviewed, normal General Appearance: no apparent distress, alert, non-toxic Head: normocephalic, atraumatic Eyes: bilateral eye normal inspection, bilateral eye PERRL ENT: hearing grossly normal, normal pharynx, no angioedema, normal voice Neck: full range of motion, supple/symm/no masses Respiratory: chest non-tender, lungs clear, normal breath sounds, speaking full sentences Cardiovascular #1: regular rate, rhythm, no edema Cardiovascular #2: 2+ carotid (R), 2+ carotid (L), 2+ radial (R), 2+ radial (L), 2+ dorsalis pedis (R), 2+ dorsalis pedis (L) Gastrointestinal: normal bowel sounds, non tender, soft, non-distended, no guarding, no rebound Rectal: deferred Genitourinary: normal inspection, no CVA tenderness Musculoskeletal: back normal, normal range of motion, calf tenderness, gait/station normal, other - Mild bilateral knee swelling with mild tenderness on range of motion but no obvious bony or joint abnormalities. Patient ambulating throughout the emergency department without any difficulty Neurologic: alert, motor strength/tone normal, oriented x3, sensory intact, responsive, speech normal Psychiatric: judgement/insight normal, memory normal, mood/affect normal, no suicidal/homicidal ideation Reflexes: 3+ bicep (R), 3+ bicep (L), 3+ tricep (R), 3+ tricep (L), 3+ knee (R), 3+ knee (L) Lymphatic: no adenopathy Medical Decision Making Diagnostic Impression: Primary Impression: Pain Additional Impression: Chronic gout ER Course 69-year-old male here requesting 1 dose of Toradol intramuscularly for his chronic gout. Patient says "I just need to 1 dose" until he can see his primary care physician tomorrow. Patient refused any imaging or blood work. He showed me the lab results from a recent blood draw at [facility] 4 days ago which showed a normal BUN and creatinine. Patient was given the 1 dose of Toradol and said that his pain was much improved. He will follow-up with his primary care physician tomorrow. Discharged in stable condition. Last Vital Signs Date Time Temp Pulse Resp B/P (MAP) Pulse Ox O2 Delivery O2 Flow Rate FiO2 04/02/20 23:25 98.1 84 20 142/90 98 Room Air Disposition: HOME, SELF-CARE Condition: Stable Referrals: Mariano Alaniz MD (PCP) Patient Instructions: Dann Land M.D. Apr 03, 2020 03:35
[2020-05-10] MEDS ORDERED: LIDODERM700 M1 TOPIC ×2 (19:59)
== END 2020-04-02 23:25 | disposition home or self-care (01) ==
LOC: EMR 22:53
DX: M79.605 Pain in left leg (principal); M79.604 Pain in right leg; M10.9 Gout, unspecified; Z88.8 Allergy status to other drugs, medicaments and biological substances; I10 Essential (primary) hypertension
CPT/HCPCS: 96372; 99283; J1885

== ENCOUNTER 2020-04-09 04:25 | Emergency (ER) | payer MEDICARE, MEDICAID ==
[~2020-04-09] VITALS: Ht 177.8 cm; Wt 90.7 kg
--- NOTE | 2020-04-09 04:40 | NUR ---
ED Nurse Note: Pt ambulated to ED from [facility] c/o 10/10 bilaterall knee pain for several hours. Pt states he wants lidocaine patches for his knees. Pt VSS, PT is A&OX4. ERMD at bedside
[2020-04-09 04:44] VITALS: BP 105/72
[2020-04-09] MEDS ORDERED: LIDODERM700 M1 TOPIC (04:45)
--- NOTE | 2020-04-09 04:45 | Emergency Room Report ---
History of Present Illness General Chief Complaint: Pain Source: Patient, Medical Record Present Illness HPI This is a 69-year-old -[place] male who is well-known here. He has a history of A. fib, CHF, high blood pressure and chronic pain. He presents with chief complaint of knee pain. He has no swelling. He denies any nausea vomiting. He denies any trauma. Pain is mostly to both knees but left greater than right. He denies any fever or chills. Pain is 8 out of 10. He usually wants a Toradol shot but today he said he wants lidocaine patch. Allergies: Coded Allergies: DILTIAZEM (Verified Allergy, Severe, Anaphylaxis, 03/01/20) ALLOPURINOL (Unverified Allergy, Unknown, Hives, 03/01/20) patient states Allopurinol makes him itch. 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 Patient History Past Medical History: see triage record, old chart reviewed, HTN, CHF, AFib Past Surgical History: none Pertinent Family History: none Social History: Denies: smoking Immunizations: other Reviewed Nursing Documentation: PMH: Agreed; PSxH: Agreed Nursing Documentation-PMH Hx Cardiac Problems: Yes - afib, CHF, gout Hx Hypertension: Yes Hx Pacemaker: No - retina detachment in the rigth eye Hx Asthma: No Hx COPD: No Hx Diabetes: No Hx Cancer: No Hx Gastrointestinal Problems: No Hx Dialysis: No Hx Neurological Problems: No Hx Cerebrovascular Accident: No Hx Seizures: No Review of Systems Eye: Denies: eye pain, blurred vision ENT: Denies: ear pain, nose congestion, throat swelling Respiratory: Denies: cough, shortness of breath Cardiovascular: Denies: chest pain, palpitations Gastrointestinal: Denies: abdominal pain, diarrhea, nausea, vomiting Musculoskeletal: Reports: joint pain; Denies: back pain Skin: Denies: rash Neurological: Denies: headache, numbness Endocrine: Denies: increased thirst, increased urine Hematologic/Lymphatic: Denies: easy bruising All Other Systems: negative except mentioned in HPI Physical Exam Vital Signs Date Time Temp Pulse Resp B/P (MAP) Pulse Ox O2 Delivery O2 Flow Rate FiO2 10/6/20 04:32 98.1 75 20 105/72 (83) 98 Room Air Vitals normal Sp02 EP Interpretation: reviewed, normal General Appearance: well appearing, no apparent distress, alert Head: normocephalic, atraumatic Eyes: bilateral eye PERRL, bilateral eye EOMI ENT: hearing grossly normal, normal pharynx Neck: full range of motion, supple, no meningismus Respiratory: chest non-tender, lungs clear, normal breath sounds Cardiovascular #1: regular rate, rhythm, no murmur Gastrointestinal: normal bowel sounds, non tender, no mass, no organomegaly, no bruit, non-distended Musculoskeletal: back normal, normal range of motion, gait/station normal, other - Bilateral knee pain. No effusion. Only trace pitting edema to lower extremity. Psychiatric: mood/affect normal Medical Decision Making Diagnostic Impression: Primary Impression: Knee pain Qualified Codes: M25.561 - Pain in right knee; M25.562 - Pain in left knee; G89.29 - Other chronic pain ER Course Patient with chronic knee pain. No A. fib on exam. His pedal edema is much improved from before. Will discharge home. Last Vital Signs Date Time Temp Pulse Resp B/P (MAP) Pulse Ox O2 Delivery O2 Flow Rate FiO2 04/09/20 04:32 98.1 75 20 105/72 (83) 98 Room Air Status: unchanged Disposition: HOME, SELF-CARE Condition: Stable Scripts Lidocaine Patch* (Lidoderm Patch*) 1 Each Adh..patch 1 PATCH TOPIC DAILY, #30 PATCH Patch(es) may remain in place for up to 12 hours in any 24-hour period. Prov: Rajinder Coyle MD 04/09/20 Referrals: Mraiano Alaniz MD (PCP) Additional Instructions: Follow-up with your doctor in 7 days. Return if worse. Rajinder Coyle MD Apr 09, 2020 04:45
== END 2020-04-09 04:44 | disposition home or self-care (01) ==
LOC: EMR 04:37
DX: M25.561 Pain in right knee (principal); M25.562 Pain in left knee; G89.29 Other chronic pain; I11.0 Hypertensive heart disease with heart failure; I50.9 Heart failure, unspecified; Z88.8 Allergy status to other drugs, medicaments and biological substances
CPT/HCPCS: 99282

== ENCOUNTER 2020-04-15 11:25 | Emergency (ER) | payer MEDICARE, MEDICAID ==
[~2020-04-15] VITALS: Ht 177.8 cm; Wt 100.7 kg
[2020-04-15 11:59] VITALS: BP 114/78
--- NOTE | 2020-04-15 12:00 | NUR ---
ED Nurse Note: Partient walked in to ER c/o bilaterally knees pain, asking for Toradol shot. Patient AAO x4, VSS at this time.
[2020-04-15] MEDS ORDERED: Ketorolac 30mg Inj ONE (12:06)
[2020-04-15] MEDS ORDERED: Ketorolac 30mg Inj IM ONE (12:15)
[2020-04-15] MEDS ORDERED: Acetaminophen 500mg (ES) tab ORAL ONE (12:15)
[2020-04-15] MEDS ORDERED: Ketorolac 60mg Inj IM ONE (12:15)
[2020-04-15 12:29] VITALS: BP 114/78
--- NOTE | 2020-04-15 14:12 | Emergency Room Report ---
History of Present Illness General Chief Complaint: Pain Source: Patient Present Illness HPI 69-year-old male here with bilateral knee pain. Patient has been seen here many times in the past for similar complaints. He is asking only for a shot of Toradol for his arthritic knee pain. No trauma. No knee swelling. No focal numbness or weakness. No leg swelling. Allergies: Coded Allergies: DILTIAZEM (Verified Allergy, Severe, Anaphylaxis, 03/01/20) ALLOPURINOL (Unverified Allergy, Unknown, Hives, 03/01/20) patient states Allopurinol makes him itch. 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-19 Testing performed AQUARIST: No Nursing Documentation-PMH Past Medical History: No History, Except For Hx Cardiac Problems: Yes - afib, CHF, gout Hx Hypertension: Yes Hx Pacemaker: No - retina detachment in the rigth eye Hx Asthma: No Hx COPD: No Hx Diabetes: No Hx Cancer: No Hx Gastrointestinal Problems: No Hx Dialysis: No Hx Neurological Problems: No Hx Cerebrovascular Accident: No Hx Seizures: No Review of Systems All Other Systems: negative except mentioned in HPI Physical Exam Vital Signs Date Time Temp Pulse Resp B/P (MAP) Pulse Ox O2 Delivery O2 Flow Rate FiO2 04/15/20 11:34 97.7 93 17 114/78 (90) 97 Room Air Sp02 EP Interpretation: reviewed, normal General Appearance: no apparent distress, alert, GCS 15, non-toxic Head: normocephalic, atraumatic Eyes: bilateral eye normal inspection, bilateral eye PERRL ENT: hearing grossly normal, normal pharynx, no angioedema, normal voice Neck: full range of motion, supple/symm/no masses Respiratory: chest non-tender, lungs clear, normal breath sounds, speaking full sentences Cardiovascular #1: regular rate, rhythm, no edema Cardiovascular #2: 2+ carotid (R), 2+ carotid (L), 2+ radial (R), 2+ radial (L), 2+ dorsalis pedis (R), 2+ dorsalis pedis (L) Gastrointestinal: normal bowel sounds, non tender, soft, non-distended, no guarding, no rebound Rectal: deferred Genitourinary: normal inspection, no CVA tenderness Musculoskeletal: back normal, normal range of motion, gait/station normal, non- tender Neurologic: alert, motor strength/tone normal, oriented x3, sensory intact, responsive, speech normal Psychiatric: judgement/insight normal, memory normal, mood/affect normal, no suicidal/homicidal ideation Lymphatic: no adenopathy Medical Decision Making Diagnostic Impression: Primary Impression: Knee pain ER Course 69-year-old male seen here many times in the past asking for Toradol. Patient was hemodynamically stable in the emergency department and neurovascular intact. He had a normal physical examination and was ambulating throughout the emergency department. He had no bony or joint abnormalities on physical exam. No indication for imaging at this time. Patient was given a shot of Toradol and p.o. acetaminophen with good resolution of his pain. We will follow-up with primary care. Discharged in stable condition. Last Vital Signs Date Time Temp Pulse Resp B/P (MAP) Pulse Ox O2 Delivery O2 Flow Rate FiO2 04/15/20 12:29 97.7 17 114/78 97 Room Air 04/15/20 11:34 93 Disposition: HOME, SELF-CARE Condition: Stable Referrals: [facility] Jocelyne Aldrideg Comp. [facility] Patient Instructions: Knee Pain, [id number] Dann Pollard M.D. Apr 15, 2020 14:12
== END 2020-04-15 12:30 | disposition home or self-care (01) ==
LOC: EMR 12:10
DX: M25.562 Pain in left knee (principal); M25.561 Pain in right knee; Z88.8 Allergy status to other drugs, medicaments and biological substances; I11.0 Hypertensive heart disease with heart failure; I50.9 Heart failure, unspecified
CPT/HCPCS: 96372; 99283; J1885

== ENCOUNTER 2020-04-19 20:41 | Emergency (ER) | payer MEDICARE, MEDICAID ==
[~2020-04-19] VITALS: Ht 177.8 cm; Wt 96.6 kg
--- NOTE | 2020-04-19 21:12 | Emergency Room Report ---
History of Present Illness General Chief Complaint: Pain Source: Patient Present Illness HPI d/c from [facility]. He states he was hospitalized for several days. He is vague as to the reason for hospitalization and also for the discharge diagnoses. He states his doctor prescribed pain medication for him. 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 He is requesting a pain shot. He rates the pain 10/10 in his knees. Its aching and slightly burning. He denies skin changes. He denies fevers or chills. The patient was last seen here April 15. He requested a pain shot at that time also. He received 2 IM doses of Toradol and Tylenol. The patient has a history of gout and leg edema. He also has a history of atrial fibrillation on Eliquis. There is no chest pain or shortness of breath. No sore throat, palpitations, nausea, vomiting, diarrhea, dysuria, abdominal pain, rashes, depression, anxiety, visual changes, dizziness, headache. The patient was last admitted November of this year. Discharge diagnoses: Atrial fibrillation with rapid ventricular response Cardiomyopathy with ejection fraction 40% Congestive heart failure Acute on chronic renal failure Hypertension Gout Renal mass Tachybradycardia syndrome Allergies: Coded Allergies: DILTIAZEM (Verified Allergy, Severe, Anaphylaxis, 03/01/20) ALLOPURINOL (Unverified Allergy, Unknown, Hives, 03/01/20) patient states Allopurinol makes him itch. 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 Reviewed Nursing Documentation: PMH: Agreed; PSxH: Agreed Nursing Documentation-PMH Past Medical History: No History, Except For Hx Cardiac Problems: Yes - afib, CHF, gout Hx Hypertension: Yes Hx Pacemaker: No - retina detachment in the rigth eye Hx Asthma: No Hx COPD: No Hx Diabetes: No Hx Cancer: No Hx Gastrointestinal Problems: No Hx Dialysis: No Hx Neurological Problems: No Hx Cerebrovascular Accident: No Hx Seizures: No Review of Systems All Other Systems: negative except mentioned in HPI Physical Exam Vital Signs Date Time Temp Pulse Resp B/P (MAP) Pulse Ox O2 Delivery O2 Flow Rate FiO2 04/19/20 20:42 98.2 76 18 133/95 (108) 97 Room Air Sp02 EP Interpretation: reviewed, normal General Appearance: well appearing, no apparent distress, GCS 15 Head: normocephalic Eyes: bilateral eye normal inspection, bilateral eye PERRL, bilateral eye EOMI ENT: other - Wearing a mask Neck: normal inspection Respiratory: normal inspection Cardiovascular #1: normal capillary refill, edema Cardiovascular #2: 2+ radial (R) Gastrointestinal: normal inspection Musculoskeletal: gait/station normal, no calf tenderness Neurologic: alert, grossly normal Psychiatric: mood/affect normal Skin: normal color, other - Patient fully dressed and knees not examined directly Medical Decision Making Diagnostic Impression: Primary Impression: Chronic leg pain Qualified Codes: M79.604 - Pain in right leg; M79.605 - Pain in left leg; G89.29 - Other chronic pain Additional Impressions: History of renal insufficiency History of cardiomyopathy History of gout ER Course Patient with history of gout and cardiomyopathy presents with bilateral knee pain requesting a pain shot. Differential includes gout, osteoarthritis, septic knees amongst others. Patient is nontoxic and afebrile. No suggestion of infective process. Patient does have history of renal insufficiency however he is tolerated Toradol injections in the past. Toradol and Tylenol are ordered. The fact he recently had hospitalization most likely labs are unremarkable. Patient improved after analgesia. Patient stable for outpatient observation and treatment. Last Vital Signs Date Time Temp Pulse Resp B/P (MAP) Pulse Ox O2 Delivery O2 Flow Rate FiO2 04/19/20 23:15 98.2 18 133/95 97 Room Air 04/19/20 20:42 76 Status: improved Disposition: HOME, SELF-CARE Condition: Improved Tim Gil MD Apr 19, 2020 21:12
[2020-04-19] MEDS ORDERED: Ketorolac 30mg Inj IM ONE (21:15)
[2020-04-19] MEDS ORDERED: Acetaminophen 500mg (ES) tab ORAL ONE (21:15)
--- NOTE | 2020-04-19 21:45 | NUR ---
ED Nurse Note: pt presents to ED with bilat knee pain whcih is chronic for him.pt denies any recent trauma or injury to the area
[2020-04-19 23:15] VITALS: BP 133/95
== END 2020-04-19 22:05 | disposition home or self-care (01) ==
LOC: EMR 21:15
DX: M79.604 Pain in right leg (principal); M79.605 Pain in left leg; G89.29 Other chronic pain; Z79.01 Long term (current) use of anticoagulants; I11.0 Hypertensive heart disease with heart failure; I43 Cardiomyopathy in diseases classified elsewhere; Z88.8 Allergy status to other drugs, medicaments and biological substances
CPT/HCPCS: 96372; 99283; J1885

== ENCOUNTER 2020-04-21 09:50 | Emergency (ER) | payer MEDICARE, MEDICAID ==
[~2020-04-21] VITALS: Ht 180.3 cm; Wt 90.7 kg
[2020-04-21] MEDS ORDERED: TYLENOL EXTRA500 MG ORAL (10:06)
[2020-04-21] MEDS ORDERED: Acetaminophen 500mg (ES) tab ORAL ONE (10:15)
[2020-04-21 10:33] VITALS: BP 151/80
--- NOTE | 2020-04-21 10:54 | Emergency Room Report ---
History of Present Illness General Chief Complaint: Pain Source: Patient, Medical Record Present Illness HPI 69-year-old male presents the ED complaining of bilateral knee pain. Walked in stating that pain for a few days now. History of chronic knee pain. History of gout. Pain is throbbing, 7 out of 10, nonradiating. No other aggravating relieving factors. Denies any other associated symptoms Allergies: Coded Allergies: DILTIAZEM (Verified Allergy, Severe, Anaphylaxis, 03/01/20) ALLOPURINOL (Unverified Allergy, Unknown, Hives, 03/01/20) patient states Allopurinol makes him itch. 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-19 Testing performed PODIATRIST ASSISTANT: No Patient History Past Medical History: HTN, AFib, other - gout Past Surgical History: none Pertinent Family History: none Social History: Denies: smoking, alcohol use, drug use Immunizations: UTD Reviewed Nursing Documentation: PMH: Agreed; PSxH: Agreed Nursing Documentation-PMH Past Medical History: No History, Except For Hx Cardiac Problems: Yes - afib, CHF, gout Hx Hypertension: Yes Hx Pacemaker: No - retina detachment in the rigth eye Hx Asthma: No Hx COPD: No Hx Diabetes: No Hx Cancer: No Hx Gastrointestinal Problems: No Hx Dialysis: No Hx Neurological Problems: No Hx Cerebrovascular Accident: No Hx Seizures: No Review of Systems All Other Systems: negative except mentioned in HPI Physical Exam Vital Signs Date Time Temp Pulse Resp B/P (MAP) Pulse Ox O2 Delivery O2 Flow Rate FiO2 04/21/20 09:55 97.5 75 14 151/80 (103) 99 Room Air Sp02 EP Interpretation: reviewed, normal General Appearance: no apparent distress, alert, GCS 15, non-toxic Head: normocephalic, atraumatic Eyes: bilateral eye normal inspection, bilateral eye PERRL ENT: hearing grossly normal, normal pharynx, no angioedema, normal voice Neck: full range of motion, supple/symm/no masses Respiratory: chest non-tender, lungs clear, normal breath sounds, speaking full sentences Cardiovascular #1: regular rate, rhythm, no edema Cardiovascular #2: 2+ carotid (R), 2+ carotid (L), 2+ radial (R), 2+ radial (L), 2+ dorsalis pedis (R), 2+ dorsalis pedis (L) Gastrointestinal: normal bowel sounds, non tender, soft, non-distended, no guarding, no rebound Rectal: deferred Genitourinary: normal inspection, no CVA tenderness Musculoskeletal: back normal, normal range of motion, gait/station normal, tender, swelling Neurologic: alert, motor strength/tone normal, oriented x3, sensory intact, responsive, speech normal Psychiatric: judgement/insight normal, memory normal, mood/affect normal, no suicidal/homicidal ideation Reflexes: 3+ bicep (R), 3+ bicep (L), 3+ tricep (R), 3+ tricep (L), 3+ knee (R), 3+ knee (L) Lymphatic: no adenopathy Medical Decision Making Diagnostic Impression: Primary Impression: Chronic knee pain Qualified Codes: M25.561 - Pain in right knee; M25.562 - Pain in left knee; G89.29 - Other chronic pain ER Course Hospital Course 69-year-old male presents with bilateral knee pain. No trauma Differential diagnoses include: Fracture, dislocation, sprain, contusion, bursitis Clinical course Patient placed on stretcher. After initial history, physical exam reveals an elderly male in no acute distress. There is swelling noted to both knees. No crepitus or bruising. Patient has been here multiple times for similar pain. Chronic. Combination of DJD and chronic gout. Patient refuses to see a specialist. Comes here multiple times a month for a pain injection. Received Toradol 2 days ago. I agree to provide him with Tylenol. I will provide a referrals. States he will follow-up with his PMD Diagnosis - chronic knee pain stable and discharged to home with prescription for Tylenol. Followup with PMD. Return to ED if symptoms recur or worsen Last Vital Signs Date Time Temp Pulse Resp B/P (MAP) Pulse Ox O2 Delivery O2 Flow Rate FiO2 04/21/20 10:33 97.5 87 14 151/80 99 Room Air Status: improved Disposition: HOME, SELF-CARE Condition: Stable Scripts Acetaminophen* (TYLENOL EXTRA STRENGTH*) 500 Mg Tablet 500 MG ORAL Q8H PRN for Prn Headache/Temp > 101, #30 TAB 0 Refills Prov: Mateo Galeano MD 04/21/20 [facility]errals: [facility] 24 hour /7 days a week by Appointment Only [address] [facility] [id number] Patient Instructions: Knee Pain, [id number] Mateo Galeano MD Apr 21, 2020 10:54
== END 2020-04-21 10:36 | disposition home or self-care (01) ==
LOC: EMR 10:06
DX: M25.562 Pain in left knee (principal); G89.29 Other chronic pain; Z88.8 Allergy status to other drugs, medicaments and biological substances; I11.0 Hypertensive heart disease with heart failure; I50.9 Heart failure, unspecified; M1A.9XX0 Chronic gout, unspecified, without tophus (tophi); M19.90 Unspecified osteoarthritis, unspecified site
CPT/HCPCS: 99282

== ENCOUNTER 2020-04-21 22:36 | Emergency (ER) | payer MEDICARE, MEDICAID ==
[~2020-04-21] VITALS: Ht 177.8 cm; Wt 90.7 kg
[2020-04-21 22:58] VITALS: BP 131/91
--- NOTE | 2020-04-21 22:58 | NUR ---
ED Nurse Note: pt walked into ED from home c/o bilateral knee pain 04/13. Pt's gait is steady, pt denies traumatic injury. Pt is AAOx4, breathing even and unlabored. Vital signs stable as documented.
[2020-04-21] MEDS ORDERED: Ketorolac 60mg Inj IM ONE (23:00)
--- NOTE | 2020-04-21 23:04 | Emergency Room Report ---
History of Present Illness General Chief Complaint: Pain Source: Patient Present Illness HPI Patient is a 69-year-old male presents for increased bilateral knee pain. Patient had recent hospitalization at [facility]. States that he has been having worsening pain since discharge. Had previous history of arthritis. He denies any calf swelling or pain. He states that he is currently on Eliquis due to atrial fibrillation. He had recently had his Lasix dose increased. Denies any weakness. Denies any decreased urine output. Denies feeling dizzy or lightheaded. Denies any numbness to his feet. Pain is worse with movement. Also has increased pain with prolonged standing. Had previous improvement with Toradol injections. Allergies: Coded Allergies: DILTIAZEM (Verified Allergy, Severe, Anaphylaxis, 03/01/20) ALLOPURINOL (Unverified Allergy, Unknown, Hives, 03/01/20) patient states Allopurinol makes him itch. 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-19 Testing performed BULLET CASTING OPERATOR: No Patient History Past Medical History: see triage record Reviewed Nursing Documentation: PMH: Agreed; PSxH: Agreed Nursing Documentation-PMH Hx Cardiac Problems: Yes - afib, CHF, gout Hx Hypertension: Yes Hx Pacemaker: No - retina detachment in the rigth eye Hx Asthma: No Hx COPD: No Hx Diabetes: No Hx Cancer: No Hx Gastrointestinal Problems: No Hx Dialysis: No Hx Neurological Problems: No Hx Cerebrovascular Accident: No Hx Seizures: No Review of Systems Constitutional: Reports: no symptoms Eye: Reports: other - Partial blindness ENT: Reports: no symptoms Respiratory: Reports: no symptoms Cardiovascular: Reports: no symptoms Gastrointestinal: Reports: no symptoms Genitourinary: Reports: no symptoms Musculoskeletal: Reports: joint pain, muscle stiffness Skin: Reports: no symptoms Psychiatric: Reports: no symptoms Neurological: Reports: no symptoms Endocrine: Reports: no symptoms Hematologic/Lymphatic: Reports: no symptoms Allergic: Reports: no symptoms Physical Exam General Appearance: well appearing, no apparent distress, alert, GCS 15, obese, Chronically Ill Head: normocephalic, atraumatic ENT: hearing grossly normal, normal voice Neck: full range of motion, supple Respiratory: chest non-tender, lungs clear, no respiratory distress, speaking full sentences Cardiovascular #1: normal inspection, no edema Gastrointestinal: normal inspection, soft Musculoskeletal: normal inspection, gait/station normal, no calf tenderness Neurologic: alert, motor strength/tone normal, laundry operator III-XII nml as tested, EOM palsy, oriented x3, normal gait Psychiatric: normal inspection, mood/affect normal Skin: no rash Medical Decision Making Diagnostic Impression: Primary Impression: Chronic knee pain ER Course Patient presented for knee pain. Differential diagnosis include was not limited to arthritis, gout, chronic pain exacerbation among others. Patient has a benign exam and does not appear to require any imaging or laboratory testing at this time. Patient is well-known to me and has multiple prior visits for sim ilar symptoms in the past. Had recent hospitalization and laboratory testing performed at [facility]. Patient responds well to Toradol and will be given Toradol injection. He will follow up with primary care physician Dr. Alaniz tomorrow. Patient was advised to return if any concerns. This medical record is generated with [employer] design lead software. There may be some design lead discrepancies related to use of this software Status: improved Disposition: HOME, SELF-CARE Condition: Stable Fahad Castillo MD Apr 21, 2020 23:04
[2020-04-21 23:16] VITALS: BP 138/76
--- NOTE | 2020-04-21 23:16 | NUR ---
ER DISCHARGE NOTE: Patient is cleared to be discharged per ERMD, pt is aox4, on room air, with stable vital signs. Pt reports pain relief currently 09/11. pt was given dc paper work with instructions to f/u with MD Alaniz. No prescriptions given by ED. pt was able to verbalize understanding, pt id band removed. pt is able to ambulate with steady gait. pt took all belongings.
== END 2020-04-21 23:16 | disposition home or self-care (01) ==
LOC: EMR 22:58
DX: M25.562 Pain in left knee (principal); M25.561 Pain in right knee; G89.29 Other chronic pain; M19.90 Unspecified osteoarthritis, unspecified site; Z88.8 Allergy status to other drugs, medicaments and biological substances; I11.0 Hypertensive heart disease with heart failure; I50.9 Heart failure, unspecified; Z79.01 Long term (current) use of anticoagulants; E66.9 Obesity, unspecified; Z68.28 Body mass index [BMI] 28.0-28.9, adult
CPT/HCPCS: 96372; 99283

== ENCOUNTER 2020-04-25 23:09 | Emergency (ER) | payer MEDICARE, MEDICAID ==
[~2020-04-25] VITALS: Ht 177.8 cm; Wt 97.5 kg
--- NOTE | 2020-04-25 23:15 | NUR ---
ED Nurse Note: Pt ambulated to the ED from home complain of bilateral knee pain x 2days with 10/10 ansd swollen. Pt stated his daily meds, cardizem was missing last afew 08/06 not refilled. Connected alarm security or surveillance monitor and BP and HR were out of normal range. Will continue to monitor.
[2020-04-25] MEDS ORDERED: oxyCODONE HCL/Acetaminophen 5/325mg ORAL ONE (23:45)
[2020-04-25 23:51] LABS: APPEARANCE,URINE CLEAR; BILIRUBIN, URINE NEGATIVE (NEGATIVE); COLOR,URINE PALE YELLOW; GLUCOSE, URINE (UA) NEGATIVE (NEGATIVE); KETONES,URINE NEGATIVE (NEGATIVE); LEUKOCYTE ESTERASE ,URINE NEGATIVE (NEGATIVE); NITRITE,URINE NEGATIVE (NEGATIVE); PH,URINE 5 (4.5-8.0); PROTEIN,URINE NEGATIVE (NEGATIVE); UROBILINOGEN,URINE NORMAL MG/DL (0.0-1.0)
--- NOTE | 2020-04-25 23:55 | Emergency Room Report ---
History of Present Illness General Chief Complaint: Pain Source: Patient Present Illness HPI Patient presents tonight with bilateral knee pain. He is complaining about 10/10 pain bilaterally. In addition he states that he ran out of his medicine for his atrial fibrillation. He claims that he started taking it again. He denies shortness of breath or chest pain or dizziness. He denies fevers or chills. Patient has a history of congestive failure, atrial fibrillation, gout. Patient was recently admitted to [facility] for several days. He was seen on the . He was given a shot of Toradol for the pain in his knees at that time. He denies any recent trauma. No sore throat, palpitations, nausea, vomiting, diarrhea, dysuria, abdominal pain, shortness of breath, rashes, depression, anxiety, visual changes, headache. Allergies: Coded Allergies: ALLOPURINOL (Unverified Allergy, Unknown, Hives, 03/01/20) patient states Allopurinol makes him itch. 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 COVID-19 Screening: Negative COVID-19 COVID-19 Testing Source: 04/16/2020 Patient History Past Medical History: see triage record Social History: Denies: smoking, alcohol use, drug use Social History Narrative From home, various distance measures Reviewed Nursing Documentation: PMH: Agreed; PSxH: Agreed Nursing Documentation-PM Past Medical History: No History, Except For Hx Cardiac Problems: Yes - afib, CHF, gout Hx Hypertension: Yes Hx Pacemaker: No - retina detachment in the rigth eye Hx Asthma: No Hx COPD: No Hx Diabetes: No Hx Cancer: No Hx Gastrointestinal Problems: No Hx Dialysis: No Hx Neurological Problems: No Hx Cerebrovascular Accident: No Hx Seizures: No Review of Systems All Other Systems: negative except mentioned in HPI Physical Exam Heart rate on monitor 110-140 Vital Signs Date Time Temp Pulse Resp B/P (MAP) Pulse Ox O2 Delivery O2 Flow Rate FiO2 04/25/20 23:10 98.1 98 20 118/99 (105) 96 Room Air Sp02 EP Interpretation: reviewed, normal General Appearance: well appearing, no apparent distress, GCS 15 Head: normocephalic Eyes: bilateral eye normal inspection, bilateral eye PERRL, bilateral eye EOMI ENT: moist mucus membranes Neck: supple Respiratory: lungs clear, normal breath sounds Cardiovascular #1: tachycardia, irregularly irregular, edema - 2+ bilateral lower extremities Cardiovascular #2: 2+ radial (R) Gastrointestinal: normal inspection, normal bowel sounds, non tender, no mass, non-distended Musculoskeletal: back normal, normal range of motion, no calf tenderness, gait/ station normal, tender, swelling - Bilateral knees Neurologic: alert, oriented x3, grossly normal Psychiatric: mood/affect normal Skin: warm/dry, other - Seborrhea or tinea versicolor back Medical Decision Making Diagnostic Impression: Primary Impression: Atrial fibrillation with rapid ventricular response Additional Impressions: Bilateral knee pain Qualified Codes: M25.561 - Pain in right knee; M25.562 - Pain in left knee Gout Qualified Codes: M10.9 - Gout, unspecified Chronic renal insufficiency Qualified Codes: N18.32 - Chronic kidney disease, stage 3b Hyponatremia ER Course Patient presents with bilateral knee pain. His vital signs are stable at this time with atrial fibrillation with a rapid ventricular response. Differential includes acute myocardial infarction, renal failure, electrolyte abnormality, noncompliance with medication, exacerbation of congestive heart failure amongst others. Regarding the knee pain differential includes gout, osteoarthritis, exacerbation of chronic pain amongst others. Patient denies any recent trauma and therefore imaging studies are not indicated. However regarding the atrial fibrillation EKG, chest x-ray and labs are indicated. The patient was queried multiple times about the alleged allergy to diltiazem. He states he is taking diltiazem at this time without any problems and it is prescribed by his own physician. A dose of diltiazem is ordered. In addition Lasix and Percocet are ordered. Patient is placed on a property assessment monitor. A fib with PVCs. Chest x-ray no infiltrates or heart failure. Calcified aorta. Moved to admit patient to the hospital with uncontrolled atrial fibrillation. Patient refuses EJ. RNs unable to find IV. Will give PO meds. 0042 Bloods drawn. Patient states he wants to go to [facility]. Advised patient risk of . Patient does not believe this and insists on leaving. Labs returning with renal insufficiency, hyponatremia and elevated BNP. Elevated uric acid. Laboratory Tests Test 04/25/20 23:35 04/26/20 00:10 Urine Color Pale yellow Urine Appearance Clear Urine pH 5 (4.5-8.0) Urine Specific Strawberry 1.020 (1.005-1.035) Urine Protein Negative (NEGATIVE) Urine Glucose (UA) Negative (NEGATIVE) Urine Ketones Negative (NEGATIVE) Urine Blood Negative (NEGATIVE) Urine Nitrite Negative (NEGATIVE) Urine Bilirubin Negative (NEGATIVE) Urine Urobilinogen Normal MG/DL (0.0-1.0) Urine Leukocyte Esterase Negative (NEGATIVE) Urine Opiates Screen Negative (NEGATIVE) Urine Barbiturates Screen Negative (NEGATIVE) Phencyclidine (PCP) Screen Negative (NEGATIVE) Urine Amphetamines Screen Negative (NEGATIVE) Urine Benzodiazepines Screen Negative (NEGATIVE) Urine Cocaine Screen Negative (NEGATIVE) Urine Marijuana (THC) Screen Negative (NEGATIVE) Sodium Level 125 MMOL/L (136-145) L Potassium Level 3.4 MMOL/L (3.5-5.1) L Chloride Level 104 MMOL/L (98-107) Carbon Dioxide Level 25 MMOL/L (21-32) Anion Gap -4 mmol/L (5-15) L Blood Urea Nitrogen 28 mg/dL (7-18) H Creatinine 2.0 MG/DL (0.55-1.30) H Estimated Glomerular Filtration Rate 40.4 mL/min (>60) Glucose Level 100 MG/DL (74-106) Uric Acid 9.9 MG/DL (2.6-7.2) H Calcium Level 9.6 MG/DL (8.5-10.1) Total Bilirubin 0.6 MG/DL (0.2-1.0) Aspartate Amino Transferase (AST) 24 U/L (15-37) Alanine Aminotransferase (ALT) 17 U/L (12-78) Alkaline Phosphatase 91 U/L (46-116) Total Creatine Kinase 155 U/L (26-308) Troponin I 0.016 ng/mL (0.000-0.056) C-Reactive Protein, Quantitative < 0.4 mg/dL (0.00-0.90) Pro-B-Type Natriuretic Peptide 1102 pg/mL (0-125) H Total Protein 6.1 G/DL (6.4-8.2) L Albumin 3.4 G/DL (3.4-5.0) Globulin 2.7 g/dL Albumin/Globulin Ratio 1.3 (1.0-2.7) Lipase 144 U/L (73-393) EKG Diagnostic Results Rate: normal Rhythm: other - Atrial fibrillation ST Segments: no acute changes Rhythm Strip Diag. Results EP Interpretation: yes Rhythm: no PVC's, no ectopy, other - Atrial fibrillation rapid ventricular response rate 110-140 Chest X-Ray Diagnostic Results Chest X-Ray Diagnostic Results : Chest X-Ray Ordered: Yes # of Views/Limited/Complete: 1 View Indication: Other EP Interpretation: Yes Interpretation: no consolidation, no effusion, no pneumothorax, other - Aortic calcifications and normal heart size Impression: No acute disease Electronically Signed by: Electronically signed by Tim Gil MD Last Vital Signs Date Time Temp Pulse Resp B/P (MAP) Pulse Ox O2 Delivery O2 Flow Rate FiO2 04/26/20 01:53 98.0 20 118/99 96 Room Air 04/26/20 01:02 98 Status: improved Disposition: AGAINST MEDICAL ADVICE Condition: Serious Referrals: Mariano Alaniz MD (PCP) Tim Gil MD Apr 25, 2020 23:55
[2020-04-26] MEDS ORDERED: dilTIAZem HCl 25mg/5ml Inj IVP ONE
--- NOTE | 2020-04-26 00:10 | NUR ---
ED Nurse Note: Lab sent to lab
[2020-04-26 00:42] LABS: ANION GAP -4 mmol/L (5-15); BLOOD UREA NITROGEN 28 mg/dL (7-18); CALCIUM 9.6 MG/DL (8.5-10.1); CARBON DIOXIDE 25 MMOL/L (21-32); CHLORIDE 104 MMOL/L (98-107); POTASSIUM 3.4 MMOL/L (3.5-5.1); SODIUM 125 MMOL/L (136-145)
[2020-04-26] MEDS ORDERED: dilTIAZem HCl 60mg tab ORAL ONE (00:45)
[2020-04-26] MEDS ORDERED: Furosemide 40mg tab ORAL ONE (00:45)
--- NOTE | 2020-04-26 00:45 | NUR ---
ED Nurse Note: Lab must be re-drawn.
[2020-04-26 00:53] LABS: ALANINE AMINOTRANSFERASE 17 U/L (12-78); ALBUMIN 3.4 G/DL (3.4-5.0); ALBUMIN/GLOBULIN RATIO 1.3 (1.0-2.7); ALKALINE PHOSPHATASE 91 U/L (46-116); ASPARTATE AMINO TRANSFERASE 24 U/L (15-37); BILIRUBIN,TOTAL 0.6 MG/DL (0.2-1.0); CREATINE KINASE 155 U/L (26-308)
--- NOTE | 2020-04-26 01:00 | NUR ---
ED Nurse Note: paper wood cutter, 3 RNs tried to insert IV but not successful. ERMD recommend to insert EJ on his neck. Pt refused.
--- NOTE | 2020-04-26 01:10 | NUR ---
ED Nurse Note: ERMD offered PO meds to take; however, Pt refused to take all medication. EDMD aware. Pt took pain med earlier and denies any pain at this time. .
--- NOTE | 2020-04-26 01:25 | NUR ---
Note vianey in EDM - 04/26/20 at 0638 by [email or web address] ED Nurse Note: Pt left with AMA.
--- NOTE | 2020-04-26 01:30 | NUR ---
ER DISCHARGE NOTE: Patient left AMA. ERMD aware. Pt is AOx4, on room air, with stable vital signs. pt was not given dc and prescription instructions, pt was not able to verbalize understanding, pt id band and iv site removed without complications. pt is able to ambulate with steady gait. pt took all belongings.
[2020-04-26 01:53] VITALS: BP 118/99
--- NOTE | 2020-04-26 12:26 | Diagnostic Imaging Report ---
Procedure: XRAY Chest 1v Reason for study: Reason For Exam: [id number] Comparison films: 11/27/2019. FINDINGS: A single one view chest is obtained. Vascularity is normal. The lung garcia are clear bilaterally. Cardiomegaly tortuous aorta unchanged. CP angles are sharp. The bony thorax appear unremarkable. IMPRESSION: NO ACUTE CARDIOPULMONARY DISEASE.
== END 2020-04-26 01:25 | disposition left against medical advice (07) ==
LOC: EMR 23:37
DX: M25.561 Pain in right knee (principal); M25.562 Pain in left knee; M10.9 Gout, unspecified; N18.32 Chronic kidney disease, stage 3b; E87.1 Hypo-osmolality and hyponatremia; I48.20 Chronic atrial fibrillation, unspecified; I13.0 Hypertensive heart and chronic kidney disease with heart failure and stage 1 through stage 4 chronic kidney disease, or unspecified chronic kidney disease; I50.9 Heart failure, unspecified; I51.9 Heart disease, unspecified
CPT/HCPCS: 36415; 71045; 80053; 80307; 81003; 82550; 83690; 83880; 84484; 84550; 86140; 93005; 99283

== ENCOUNTER 2020-04-27 09:46 | Emergency (ER) | payer MEDICARE, MEDICAID ==
[~2020-04-27] VITALS: Ht 177.8 cm; Wt 95.3 kg
[2020-04-27 10:00] VITALS: BP 125/93
[2020-04-27] MEDS ORDERED: Fluorescein Strips ONE (10:08)
[2020-04-27 10:15] VITALS: BP 128/88
[2020-04-27] MEDS ORDERED: Fluorescein Strips RIGHT EYE ONE (10:15)
--- NOTE | 2020-04-27 10:20 | Emergency Room Report ---
History of Present Illness General Chief Complaint: Eye Problems Source: Patient Present Illness HPI Disclaimer: Please note that this report is being documented using DRAGON technology. This can lead to erroneous entry secondary to incorrect interpretation by the dictating instrument. HPI: 65-year-old male history of atrial fibrillation Eliquis presents for evaluation of eye redness. Patient woke this morning noticing redness in the right eye. 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 He follows with the director distribution regularly. He states there is mild irritation and increased lacrimation but no severe pain, no headache, no pressure. Denies any changes in the left eye. Compliant with Eliquis. Cannot recall any recent trauma, severe Valsalva, injury of any kind. Resting comfortably at this time with no other complaints. PMH: Atrial fibrillation, CHF, on Eliquis PSH: Reviewed Allergies: Reviewed Social Hx: Viewed Allergies: Coded Allergies: ALLOPURINOL (Unverified Allergy, Unknown, Hives, 03/01/20) patient states Allopurinol makes him itch. 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 COVID-19 Screening: Negative COVID-19 COVID-19 Testing Source: [facility] Nursing Documentation-PMH Hx Cardiac Problems: Yes - afib, CHF, gout Hx Hypertension: Yes Hx Pacemaker: No - retina detachment in the rigth eye Hx Asthma: No Hx COPD: No Hx Diabetes: No Hx Cancer: No Hx Gastrointestinal Problems: No Hx Dialysis: No Hx Neurological Problems: No Hx Cerebrovascular Accident: No Hx Seizures: No Review of Systems All Other Systems: negative except mentioned in HPI Physical Exam Vital Signs Date Time Temp Pulse Resp B/P (MAP) Pulse Ox O2 Delivery O2 Flow Rate FiO2 04/27/20 09:49 98.2 85 19 125/93 (104) 98 Room Air General: Awake and alert, no acute distress HEENT: NC/AT. EOMI. PERRLA. There is a subconjunctival hemorrhage from the 3 to 6 o'clock position in the right eye. No chemosis, no increased lacrimation, no hypopyon, no hyphema, no purulent drainage. Does not cross the limbus. No evidence of conjunctival injection, purulence, edema of either lids. Left eye atraumatic, no abnormalities identified. IOP right eye 11 mmHg. Patient has no vision in the right eye. Todd lamp examination does not show any ulcerations, corneal abrasions, dendrites or evidence of globe injury. Resp: Normal work of breathing Skin: Intact. No abrasions, laceration or rash over the exposed skin MSK: Normal tone and bulk. Moving all extremities. No obvious deformity. Neuro: Awake and alert. Mentating appropriately Medical Decision Making Diagnostic Impression: Primary Impression: Subconjunctival hemorrhage of right eye ER Course Is a 69-year-old male presenting for evaluation of eye redness. Exam is most consistent with small subconjunctival hemorrhage. Patient does not remember injury though he is on Eliquis and may have been due to a long Valsalva or coughing/sneezing fit. Do not see evidence of conjunctivitis, acute angle- closure glaucoma or corneal abrasion at this time. Patient has a ocular specialist that he follows up with regular and states he will see him in the next few days. I instructed him to monitor closely and return if it increases in size significantly or changes in quality in any way. He understands and agrees with this treatment plan will be discharged home. Last Vital Signs Date Time Temp Pulse Resp B/P (MAP) Pulse Ox O2 Delivery O2 Flow Rate FiO2 04/27/20 09:49 98.2 85 19 125/93 (104) 98 Room Air Disposition: HOME, SELF-CARE Condition: Stable Patient Instructions: Subconjunctival Hemorrhage Additional Instructions: Follow-up with your contract specialist as soon as possible. Return to the emergency department with new or worsening symptoms. Sebastian Payton MD Apr 27, 2020 10:19
== END 2020-04-27 10:15 | disposition home or self-care (01) ==
LOC: EMR 10:01
DX: H11.31 Conjunctival hemorrhage, right eye (principal); Z79.01 Long term (current) use of anticoagulants; I11.0 Hypertensive heart disease with heart failure; I50.9 Heart failure, unspecified; Z88.8 Allergy status to other drugs, medicaments and biological substances; H54.61 Unqualified visual loss, right eye, normal vision left eye
CPT/HCPCS: 99282

== ENCOUNTER 2020-04-29 16:50 | Emergency (ER) | payer MEDICARE, MEDICAID ==
[~2020-04-29] VITALS: Ht 177.8 cm; Wt 99.8 kg
--- NOTE | 2020-04-29 17:01 | NUR ---
ED Nurse Note: Pt ambulated to ed c/o bilateral leg pain x 3-4 days with chronic swelling.
[2020-04-29 17:02] VITALS: BP 135/95
[2020-04-29] MEDS ORDERED: HYDROcodone/Acetamin 7.5/325 tab ONE (17:10)
--- NOTE | 2020-04-29 17:12 | Emergency Room Report ---
History of Present Illness General Chief Complaint: General Complaint Source: Patient Present Illness HPI Disclaimer: Please note that this report is being documented using [employer] technology. This can lead to erroneous entry secondary to incorrect interpretation by the dictating instrument. HPI: 65-year-old male history of atrial fibrillation Eliquis presents for evaluation of knee pain. He seen in the emergency department several days ago subconjunctival hemorrhage. He followed up with his retina specialist today so there is no intervention planned he was put on artificial tears. He presents complaining of bilateral aching knees. He has a history of arthritis and chronic knee pain. He states he will have "flareups" of knee pain every now and then. He is requesting 1 dose of pain medication. Denies fall or injury. Able to ambulate still. No other complaints at this time. PMH: Atrial fibrillation, CHF, on Eliquis PSH: Reviewed Allergies: Reviewed Social Hx: Reviewed Allergies: Coded Allergies: ALLOPURINOL (Unverified Allergy, Unknown, Hives, 03/01/20) patient states Allopurinol makes him itch. 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 Nursing Documentation-PMH Past Medical History: No History, Except For Hx Cardiac Problems: Yes - afib, CHF, gout Hx Hypertension: Yes Hx Pacemaker: No - retina detachment in the rigth eye Hx Asthma: No Hx COPD: No Hx Diabetes: No Hx Cancer: No Hx Gastrointestinal Problems: No Hx Dialysis: No Hx Neurological Problems: No Hx Cerebrovascular Accident: No Hx Seizures: No Review of Systems All Other Systems: negative except mentioned in HPI Physical Exam Vital Signs Date Time Temp Pulse Resp B/P (MAP) Pulse Ox O2 Delivery O2 Flow Rate FiO2 04/29/20 16:57 98.6 60 19 135/95 (108) 97 Room Air General: Awake and alert, no acute distress HEENT: NC/AT. EOMI. PERRLA. There is a subconjunctival hemorrhage in the right eye. No chemosis, no increased lacrimation, no hypopyon, no hyphema, no purulent drainage. Does not cross the limbus. Resp: Normal work of breathing Skin: Intact. No abrasions, laceration or rash over the exposed skin MSK: Normal tone and bulk. Moving all extremities. No obvious deformity. Patella is in anatomic position. No significant edema. No overlying skin campos es. No laxity noted. Neuro: Awake and alert. Mentating appropriately Medical Decision Making Diagnostic Impression: Primary Impression: Knee pain Additional Impression: Subconjunctival hemorrhage of right eye ER Course 69-year-old male presents for evaluation of bilateral knee pain. No injury reported. This a chronic issue for the patient will be treated 1 dose of pain medication. Does not require emergent imaging at this time. Regarding the subconjunctival hemorrhage in his right eye he is followed up with retina specialist earlier today and is being appropriately treated. He is stable to follow-up with his PMD on an outpatient basis. Last Vital Signs Date Time Temp Pulse Resp B/P (MAP) Pulse Ox O2 Delivery O2 Flow Rate FiO2 04/29/20 17:02 98.6 60 19 135/95 97 Room Air Disposition: HOME, SELF-CARE Condition: Stable Additional Instructions: Please follow-up with your primary care doctor in the next 1 to 3 days to discuss this emergency department visit and for reevaluation. If you have any new or worsening symptoms please return to the emergency department for reevaluation. Please note that this report is being documented using [employer] technology. This can lead to erroneous entry secondary to incorrect interpretation by the dictating instrument. Sebastian Payton MD Apr 29, 2020 17:12
[2020-04-29 17:13] VITALS: BP 142/88
[2020-04-29] MEDS ORDERED: HYDROcodone/Acetamin 7.5/325 tab ORAL ONE (17:15)
== END 2020-04-29 17:13 | disposition home or self-care (01) ==
LOC: EMR 17:05
DX: M25.562 Pain in left knee (principal); M25.561 Pain in right knee; Z88.8 Allergy status to other drugs, medicaments and biological substances; I11.0 Hypertensive heart disease with heart failure; I50.9 Heart failure, unspecified; H11.31 Conjunctival hemorrhage, right eye; Z79.01 Long term (current) use of anticoagulants; M19.90 Unspecified osteoarthritis, unspecified site
CPT/HCPCS: 99282

== ENCOUNTER 2020-05-04 20:28 | Emergency (ER) | payer MEDICARE, MEDICAID ==
[~2020-05-04] VITALS: Ht 177.8 cm; Wt 97.5 kg
[2020-05-04 20:49] VITALS: BP 128/89
[2020-05-04] MEDS ORDERED: OXYCODONE-ACET1 EAC5 ORAL (21:09)
--- NOTE | 2020-05-04 21:11 | Diagnostic Imaging Report ---
EXAM: XR Right Shoulder Complete, 2 or More Views CLINICAL HISTORY: PAIN TECHNIQUE: Two or more views of the right shoulder. COMPARISON: No previous study. FINDINGS: Bones/joints: There is osteopenia. Right shoulder joint is intact. Mild hypertrophic changes right acromioclavicular joint. No acute fracture. No dislocation. Soft tissues: Soft tissues are unremarkable. IMPRESSION: 1. Osteopenia. 2. Hypertrophic changes right acromial clavicular joint. 3. No acute fracture or dislocation is detected. 4. If there is concern for rotator cuff tendon abnormalities, magnetic resonance imaging of the right shoulder joint should be performed.
--- NOTE | 2020-05-04 21:14 | Emergency Room Report ---
History of Present Illness General Chief Complaint: Pain Source: Patient Present Illness HPI 69-year-old male very well-known to this emergency department here requesting pain medication for right shoulder pain. Patient says he was recently admitted at [facility] where he underwent diuresis for CHF exacerbation and says that he has been having severe shoulder pain for several weeks. No trauma. Patient has a subconjunctival hematoma on his right eye and says that he cannot get his usual Toradol shots that he normally gets when he is here in the emergency department. Says "they gave me some pill that really worked for me once. It was not [place]." Pain is dull in nature, located in the right shoulder, does not otherwise radiate. No fevers, chills, chest pain, palpitations, shortness of breath, back pain, abdominal pain, nausea, vomiting, diarrhea, dysuria. Allergies: Coded Allergies: ALLOPURINOL (Unverified Allergy, Unknown, Hives, 03/01/20) patient states Allopurinol makes him itch. 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-19 Screening: Negative COVID-19 COVID-19 Testing Source: 04/2020 Nursing Documentation-[facility] Past Medical History: No History, Except For Hx Cardiac Problems: Yes - afib, CHF, gout Hx Hypertension: Yes Hx Pacemaker: No - retina detachment in the rigth eye Hx Asthma: No Hx COPD: No Hx Diabetes: No Hx Cancer: No Hx Gastrointestinal Problems: No Hx Dialysis: No Hx Neurological Problems: No Hx Cerebrovascular Accident: No Hx Seizures: No Review of Systems All Other Systems: negative except mentioned in HPI Physical Exam Vital Signs Date Time Temp Pulse Resp B/P (MAP) Pulse Ox O2 Delivery O2 Flow Rate FiO2 05/04/20 20:28 98.1 69 24 128/89 (102) 98 Room Air Sp02 EP Interpretation: reviewed, normal General Appearance: no apparent distress, alert, non-toxic Head: normocephalic, atraumatic Eyes: bilateral eye normal inspection, bilateral eye PERRL ENT: hearing grossly normal, normal pharynx, no angioedema, normal voice Neck: full range of motion, supple/symm/no masses Respiratory: chest non-tender, lungs clear, normal breath sounds, speaking full sentences Cardiovascular #1: regular rate, rhythm, no edema Cardiovascular #2: 2+ carotid (R), 2+ carotid (L), 2+ radial (R), 2+ radial (L), 2+ dorsalis pedis (R), 2+ dorsalis pedis (L) Gastrointestinal: normal bowel sounds, non tender, soft, non-distended, no guarding, no rebound Rectal: deferred Genitourinary: normal inspection, no CVA tenderness Musculoskeletal: back normal, normal range of motion, gait/station normal, other - Subjective tenderness to palpation on the right shoulder but normal range of motion without any obvious deformities. 1+ pitting edema of the lower extremities Neurologic: alert, motor strength/tone normal, oriented x3, sensory intact, responsive, speech normal Psychiatric: judgement/insight normal, memory normal, mood/affect normal, no suicidal/homicidal ideation Lymphatic: no adenopathy Medical Decision Making Diagnostic Impression: Primary Impression: Pain Additional Impression: Arthritis ER Course Xray R shoulder: IMPRESSION: 1. Osteopenia. 2. Hypertrophic changes right acromial clavicular joint. 3. No acute fracture or dislocation is detected. 4. If there is concern for rotator cuff tendon abnormalities, magnetic resonance imaging of the right shoulder joint should be performed. 69-year-old male here with atraumatic right shoulder pain. Patient had evidence of arthritis on his right shoulder x-ray. He was given an oxycodone in the emergency department with resolution of his pain. Given a prescription for a few doses of oxycodone to take at home. Told him that needs to follow-up with his primary care provider for his chronic pain issues. He expressed understanding and was discharged. Last Vital Signs Date Time Temp Pulse Resp B/P (MAP) Pulse Ox O2 Delivery O2 Flow Rate FiO2 05/04/20 20:49 98.1 85 22 128/89 98 Room Air Disposition: HOME, SELF-CARE Condition: Stable Scripts Oxycodone Hcl/Acetaminophen 10-325* (OXYCODONE-ACETAMINOPHEN 10-325*) 1 Each Tablet 1 TAB ORAL Q4H PRN for For Pain, #10 TAB 0 Refills Prov: Dann Pollard M.D. 10/31/20 Patient Instructions: Arthritis Dann Pollard M.D. May 04, 2020 21:14
[2020-05-04] MEDS ORDERED: oxyCODONE HCL/Acetaminophen 5/325mg ORAL ONE (21:15)
[2020-05-04 21:25] VITALS: BP 128/89
== END 2020-05-04 21:33 | disposition home or self-care (01) ==
LOC: EMR 21:02
DX: M19.011 Primary osteoarthritis, right shoulder (principal); M25.511 Pain in right shoulder; M85.811 Other specified disorders of bone density and structure, right shoulder; I11.0 Hypertensive heart disease with heart failure; I50.9 Heart failure, unspecified; Z88.8 Allergy status to other drugs, medicaments and biological substances
CPT/HCPCS: 99283

== ENCOUNTER 2020-05-10 19:13 | Emergency (ER) | payer MEDICARE, MEDICAID ==
[~2020-05-10] VITALS: Ht 177.8 cm; Wt 97.1 kg
[~2020-05-10 19:13] MED LIST changes: +OXYCODONE-ACET1 EAC5 ORAL
[2020-05-10 19:35] VITALS: BP 147/98
[2020-05-10] MEDS ORDERED: Ketorolac 30mg Inj IM ONE (19:45)
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
[2020-05-10] MEDS ORDERED: LIDODERM700 M1 TOPIC (19:59)
[2020-05-10 20:00] VITALS: BP 147/98
== END 2020-05-10 20:00 | disposition home or self-care (01) ==
LOC: EMR 19:45
DX: M25.562 Pain in left knee (principal); M25.561 Pain in right knee; Z88.8 Allergy status to other drugs, medicaments and biological substances; I11.0 Hypertensive heart disease with heart failure; I50.9 Heart failure, unspecified; M19.90 Unspecified osteoarthritis, unspecified site
CPT/HCPCS: 96372; 99283; J1885; J7030

== ENCOUNTER 2020-05-12 00:34 | Emergency (ER) | payer MEDICARE, MEDICAID ==
[~2020-05-12] VITALS: Ht 167.6 cm; Wt 81.6 kg
[2020-05-12 00:39] VITALS: BP 143/77
[2020-05-12 01:00] VITALS: BP 143/77
--- NOTE | 2020-05-12 01:11 | Emergency Room Report ---
History of Present Illness General Chief Complaint: Pain Source: Patient, Medical Record Present Illness HPI This is a 69-year-old male with a history of atrial fibrillation and chronic leg pain from gout. He presents with chief complaint of bilateral knee pain. This is a chronic problem. He has been here numerous times. He also has been to other ERs for the same thing. He was just here yesterday. He is here because he wants lidocaine patch for his knees. He had a prescription but he said it was too expensive. No fever chills but no nausea no vomiting. Denies any other complaint. Pain is 9 out of 10. Worse with walking. He walked here without any problem. Allergies: Coded Allergies: ALLOPURINOL (Unverified Allergy, Unknown, Hives, 03/01/20) patient states Allopurinol makes him itch. 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-19 Testing performed ASSISTANT MEDIA BUYER: No Patient History Past Medical History: see triage record, old chart reviewed, HTN, CAD, CHF, AFib Past Surgical History: other Pertinent Family History: none Social History: Denies: smoking Immunizations: other Reviewed Nursing Documentation: PMH: Agreed; PSxH: Agreed Nursing Documentation-PMH Hx Cardiac Problems: Yes - afib, CHF, gout Hx Hypertension: Yes Hx Pacemaker: No - retina detachment in the rigth eye Hx Asthma: No Hx COPD: No Hx Diabetes: No Hx Cancer: No Hx Gastrointestinal Problems: No Hx Dialysis: No Hx Neurological Problems: No Hx Cerebrovascular Accident: No Hx Seizures: No Review of Systems Eye: Denies: eye pain, blurred vision ENT: Denies: ear pain, nose congestion, throat swelling Respiratory: Denies: cough, shortness of breath Cardiovascular: Denies: chest pain, palpitations Gastrointestinal: Denies: abdominal pain, diarrhea, nausea, vomiting Musculoskeletal: Reports: joint pain; Denies: back pain Skin: Denies: rash Neurological: Denies: headache, numbness Endocrine: Denies: increased thirst, increased urine Hematologic/Lymphatic: Denies: easy bruising All Other Systems: negative except mentioned in HPI Physical Exam Vital Signs Date Time Temp Pulse Resp B/P (MAP) Pulse Ox O2 Delivery O2 Flow Rate FiO2 05/12/20 00:39 97.9 88 18 143/77 (99) 98 Room Air Vitals unremarkable Sp02 EP Interpretation: reviewed, normal General Appearance: well appearing, no apparent distress, alert Head: normocephalic, atraumatic Eyes: bilateral eye PERRL, bilateral eye EOMI ENT: hearing grossly normal, normal pharynx Neck: full range of motion, supple, no meningismus Respiratory: chest non-tender, lungs clear, normal breath sounds Cardiovascular #1: regular rate, rhythm, no murmur Gastrointestinal: normal bowel sounds, non tender, no mass, no organomegaly, no bruit, non-distended Musculoskeletal: back normal, normal range of motion, gait/station normal, other - Trace edema. This is unchanged from prior Psychiatric: mood/affect normal Medical Decision Making Diagnostic Impression: Primary Impression: Bilateral knee pain Qualified Codes: M25.561 - Pain in right knee; M25.562 - Pain in left knee ER Course Patient with bilateral knee pain. No evidence of septic joint or trauma. He is currently not in A. fib. Last Vital Signs Date Time Temp Pulse Resp B/P (MAP) Pulse Ox O2 Delivery O2 Flow Rate FiO2 05/12/20 00:39 97.9 88 18 143/77 (99) 98 Room Air Status: improved Disposition: HOME, SELF-CARE Condition: Stable Additional Instructions: Follow-up with your doctor in 7 days. Return if symptoms worsen. Rajinder Coyle MD May 12, 2020 01:11
== END 2020-05-12 01:15 | disposition home or self-care (01) ==
LOC: EMR 01:00
DX: M25.562 Pain in left knee (principal); M25.561 Pain in right knee; I48.91 Unspecified atrial fibrillation; I11.0 Hypertensive heart disease with heart failure; I50.9 Heart failure, unspecified; M10.9 Gout, unspecified; I25.10 Atherosclerotic heart disease of native coronary artery without angina pectoris; Z88.8 Allergy status to other drugs, medicaments and biological substances
CPT/HCPCS: 99282

== ENCOUNTER 2020-05-12 21:43 | Emergency (ER) | payer MEDICARE, MEDICAID ==
[~2020-05-12] VITALS: Ht 172.7 cm; Wt 113.4 kg
[2020-05-12 21:58] VITALS: BP 132/90
--- NOTE | 2020-05-12 22:05 | Emergency Room Report ---
History of Present Illness General Chief Complaint: Pain Source: Patient, Medical Record Present Illness HPI This is a 69-year-old male with a history of A. fib and CHF. He also has history of chronic bilateral knee pain. I saw him at 6 AM today and he requests lidocaine patch. After discharge he went to the cafeteria and was there for a few hours and came back in to be checked in again. He forgot that he already got the lidocaine patch and left. Now he is back saying the lidocaine patch is not helping. He is complaining of knee pain. Requesting Toradol shot. No fever chills but no nausea no vomiting. There is no fever chills. No trauma. Nothing made it better. Nothing made it worse. He claimed that he is not homeless. He is well-known to this ER and the ER in the vicinity. Allergies: Coded Allergies: ALLOPURINOL (Unverified Allergy, Unknown, Hives, 03/01/20) patient states Allopurinol makes him itch. 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-19 Testing performed ADULT MANAGER: No Patient History Past Medical History: see triage record, old chart reviewed Past Surgical History: other Pertinent Family History: none Social History: Denies: smoking Immunizations: other Reviewed Nursing Documentation: PMH: Agreed; PSxH: Agreed Nursing Documentation-PMH Hx Cardiac Problems: Yes - afib, CHF, gout Hx Hypertension: Yes Hx Pacemaker: No - retina detachment in the rigth eye Hx Asthma: No Hx COPD: No Hx Diabetes: No Hx Cancer: No Hx Gastrointestinal Problems: No Hx Dialysis: No Hx Neurological Problems: No Hx Cerebrovascular Accident: No Hx Seizures: No Review of Systems Eye: Denies: eye pain, blurred vision ENT: Denies: ear pain, nose congestion, throat swelling Respiratory: Denies: cough, shortness of breath Cardiovascular: Denies: chest pain, palpitations Gastrointestinal: Denies: abdominal pain, diarrhea, nausea, vomiting Musculoskeletal: Reports: joint pain; Denies: back pain Skin: Denies: rash Neurological: Denies: headache, numbness Endocrine: Denies: increased thirst, increased urine Hematologic/Lymphatic: Denies: easy bruising All Other Systems: negative except mentioned in HPI Physical Exam Vital Signs Date Time Temp Pulse Resp B/P (MAP) Pulse Ox O2 Delivery O2 Flow Rate FiO2 05/12/20 21:52 98.8 56 16 132/90 (104) 96 Room Air Vitals normal Sp02 EP Interpretation: reviewed, normal General Appearance: well appearing, no apparent distress, alert Head: normocephalic, atraumatic Eyes: bilateral eye PERRL, bilateral eye EOMI ENT: hearing grossly normal, normal pharynx Neck: full range of motion, supple, no meningismus Respiratory: chest non-tender, lungs clear, normal breath sounds Cardiovascular #1: regular rate, rhythm, no murmur Gastrointestinal: normal bowel sounds, non tender, no mass, no organomegaly, no bruit, non-distended Musculoskeletal: back normal, normal range of motion, gait/station normal, swelling - There is pitting edema. Patient has on stockings. Psychiatric: mood/affect normal Medical Decision Making Diagnostic Impression: Primary Impression: Bilateral knee pain Qualified Codes: M25.561 - Pain in right knee; M25.562 - Pain in left knee ER Course Patient with exacerbation of chronic knee pain. I suspect that this is a housing situation. He denies being homeless. Will discharge home. I see no evidence of septic joint. Last Vital Signs Date Time Temp Pulse Resp B/P (MAP) Pulse Ox O2 Delivery O2 Flow Rate FiO2 05/12/20 21:58 98.8 81 16 132/90 96 Room Air Status: improved Disposition: HOME, SELF-CARE Condition: Stable Additional Instructions: Follow-up with your doctor in 7 days. Return if worse. Rajinder Coyle MD May 12, 2020 22:05
[2020-05-12 22:10] VITALS: BP 132/90
[2020-05-12] MEDS ORDERED: Ketorolac 30mg Inj IM ONE (22:15)
== END 2020-05-12 22:15 | disposition home or self-care (01) ==
LOC: EMR 22:12
DX: M25.561 Pain in right knee (principal); M25.562 Pain in left knee; I11.0 Hypertensive heart disease with heart failure; I50.9 Heart failure, unspecified; I48.91 Unspecified atrial fibrillation; Z79.01 Long term (current) use of anticoagulants; M10.9 Gout, unspecified; H33.21 Serous retinal detachment, right eye
CPT/HCPCS: 96372; 99282; J1885

== ENCOUNTER 2020-05-14 20:43 | Emergency (ER) | payer MEDICARE, MEDICAID ==
[~2020-05-14] VITALS: Ht 177.8 cm; Wt 99.8 kg
[2020-05-14 20:53] VITALS: BP 148/85
[2020-05-14] MEDS ORDERED: Ketorolac 60mg Inj IM ONE (21:15)
[2020-05-14 21:22] VITALS: BP 143/79
--- NOTE | 2020-05-14 21:58 | Emergency Room Report ---
History of Present Illness General Chief Complaint: Pain Source: Patient Present Illness HPI 69-year-old male with history of chronic arthritic knee pain here requesting Toradol for his chronic pain. Patient has been here many times in the past. Says this pain is the same as his usual pain. Patient denies being homeless. Says he has an appointment upcoming with his primary physician "I does need some Toradol tonight." No other complaints. Allergies: Coded Allergies: ALLOPURINOL (Unverified Allergy, Unknown, Hives, 03/01/20) patient states Allopurinol makes him itch. 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-19 Testing performed CAMERA REPAIRMAN: No COVID-19 Screening: Negative COVID-19 COVID-19 Testing [facility] Nursing Documentation-PMH Hx Cardiac Problems: Yes - afib, CHF, gout Hx Hypertension: Yes Hx Pacemaker: No - retina detachment in the rigth eye Hx Asthma: No Hx COPD: No Hx Diabetes: No Hx Cancer: No Hx Gastrointestinal Problems: No Hx Dialysis: No Hx Neurological Problems: No Hx Cerebrovascular Accident: No Hx Seizures: No Review of Systems All Other Systems: negative except mentioned in HPI Physical Exam Vital Signs Date Time Temp Pulse Resp B/P (MAP) Pulse Ox O2 Delivery O2 Flow Rate FiO2 05/14/20 20:46 98.2 57 20 148/85 (106) 98 Room Air Sp02 EP Interpretation: reviewed, normal General Appearance: no apparent distress, alert, non-toxic Head: normocephalic, atraumatic Eyes: bilateral eye normal inspection, bilateral eye PERRL ENT: hearing grossly normal, normal pharynx, no angioedema, normal voice Neck: full range of motion, supple/symm/no masses Respiratory: chest non-tender, lungs clear, normal breath sounds, speaking full sentences Cardiovascular #1: regular rate, rhythm, no edema Cardiovascular #2: 2+ carotid (R), 2+ carotid (L), 2+ radial (R), 2+ radial (L), 2+ dorsalis pedis (R), 2+ dorsalis pedis (L) Gastrointestinal: normal bowel sounds, non tender, soft, non-distended, no guarding, no rebound Rectal: deferred Genitourinary: normal inspection, no CVA tenderness Musculoskeletal: back normal, normal range of motion, gait/station normal, non- tender, other - Mild bilateral knee swelling but no acute abnormalities. No effusion Neurologic: alert, motor strength/tone normal, oriented x3, sensory intact, responsive, speech normal Psychiatric: judgement/insight normal, memory normal, mood/affect normal, no suicidal/homicidal ideation Lymphatic: no adenopathy Medical Decision Making Diagnostic Impression: Primary Impression: Chronic knee pain ER Course 69-year-old male here for evaluation for his chronic knee pain. Patient has been seen here many times in the past. No evidence of septic arthritis, gout, any other acute abnormalities aside from his chronic arthritic knees. He was given Toradol in the emergency department with good resolution of his pain. Says he will follow-up with his primary care provider. Discharged in stable condition. Last Vital Signs Date Time Temp Pulse Resp B/P (MAP) Pulse Ox O2 Delivery O2 Flow Rate FiO2 05/14/20 21:22 98.2 62 20 143/79 98 Room Air Disposition: HOME, SELF-CARE Condition: Stable Referrals: Mariano Alaniz MD (PCP) [facility] Jocelyne Pineda [facility] Patient Instructions: Knee Pain Additional Instructions: Please follow-up with your primary care doctor in the next 1 to 3 days to discuss this emergency department visit and for reevaluation. If you have any new or worsening symptoms please return to the emergency department for reevaluation. Dann Pollard M.D. May 14, 2020 21:58
== END 2020-05-14 21:22 | disposition home or self-care (01) ==
LOC: EMR 21:12
DX: M25.562 Pain in left knee (principal); M25.561 Pain in right knee; G89.29 Other chronic pain; I11.0 Hypertensive heart disease with heart failure; I50.9 Heart failure, unspecified; I48.91 Unspecified atrial fibrillation; M10.9 Gout, unspecified
CPT/HCPCS: 96372; 99283

== ENCOUNTER 2020-05-22 22:48 | Emergency (ER) | payer MEDICARE, MEDICAID ==
[~2020-05-22] VITALS: Ht 172.7 cm; Wt 99.8 kg
--- NOTE | 2020-05-22 23:05 | NUR ---
ED Nurse Note: Recvieved pt walk in from home, here with c/o "i need my pain shot", pt ahs chronic pain and states needs meds, pt c/o pain in both legs at 7/10, denies any other pain or discomforts, no cp, no sob, pt ia ambulatory, swelling to BLE very small, no other complaints.
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
[2020-05-22] MEDS ORDERED: Acetaminophen 500mg (ES) tab ORAL ONE (23:15)
[2020-05-22] MEDS ORDERED: Ketorolac 30mg Inj IM ONE (23:15)
[2020-05-22] MEDS ORDERED: Ketorolac 60mg Inj IM ONE (23:15)
[2020-05-22] MEDS ORDERED: TYLENOL325 MG ORAL (23:15)
[2020-05-22] MEDS ORDERED: LIDODERM700 M1 TOPIC (23:15)
[2020-05-22 23:30] VITALS: BP 154/92
== END 2020-05-22 23:33 | disposition home or self-care (01) ==
LOC: EMR 23:33
DX: G89.29 Other chronic pain (principal); M25.562 Pain in left knee; M25.561 Pain in right knee; M19.90 Unspecified osteoarthritis, unspecified site; L60.0 Ingrowing nail; N28.9 Disorder of kidney and ureter, unspecified; I10 Essential (primary) hypertension; I48.91 Unspecified atrial fibrillation; I11.0 Hypertensive heart disease with heart failure; Z88.8 Allergy status to other drugs, medicaments and biological substances; Z91.09 Other allergy status, other than to drugs and biological substances
CPT/HCPCS: 96372; 99283; J1885

== ENCOUNTER 2020-05-24 17:09 | Emergency (ER) | payer MEDICARE, MEDICAID ==
[~2020-05-24] VITALS: Ht 180.3 cm; Wt 95.3 kg
[2020-05-24 17:20] VITALS: BP 138/78
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
[2020-05-24] MEDS ORDERED: OFLOXACIN10 ML OP (17:40)
[2020-05-24] MEDS ORDERED: ERYTHROMYCIN3.5 GM BOTH EYES (17:40)
[2020-05-24 17:47] VITALS: BP 140/80
--- NOTE | 2020-05-24 17:47 | NUR ---
ER DISCHARGE NOTE: Patient is cleared to be discharged per ERPA, pt is aox4, on room air, with stable vital signs. pt was given dc and prescription instructions, pt was able to verbalize understanding, pt id band removed. pt is able to ambulate with steady gait. pt took all belongings.
== END 2020-05-24 17:47 | disposition home or self-care (01) ==
LOC: EMR 17:30
DX: H10.13 Acute atopic conjunctivitis, bilateral (principal); I48.91 Unspecified atrial fibrillation; I50.9 Heart failure, unspecified; I11.0 Hypertensive heart disease with heart failure; Z79.01 Long term (current) use of anticoagulants; Z88.8 Allergy status to other drugs, medicaments and biological substances; Z91.09 Other allergy status, other than to drugs and biological substances
CPT/HCPCS: 99282

== ENCOUNTER 2020-05-29 22:17 | Emergency (ER) | payer MEDICARE, MEDICAID ==
[~2020-05-29] VITALS: Ht 152.4 cm; Wt 99.8 kg
[~2020-05-29 22:17] MED LIST changes: +ERYTHROMYCIN3.5 GM BOTH EYES; +OFLOXACIN10 ML OP
--- NOTE | 2020-05-29 22:40 | NUR ---
ED Nurse Note: Patient walked into the ED with c/o chronic knee pain. Pt was recently discharge from [facility] for severe arthritis. Pain is 10/10. Patient is AAOX4 and ambulating. Patient denies fever/chills, N&V. PAtient denies injury or trauma
--- NOTE | 2020-05-29 22:41 | NUR ---
ED Nurse Note: ERMD at bedside
[2020-05-29 23:00] VITALS: BP 143/65
[2020-05-29] MEDS ORDERED: Ketorolac 30mg Inj IM ONE (23:00)
[2020-05-29] MEDS ORDERED: ULTRAM50 MG ORAL (23:00)
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
[2020-05-29 23:20] VITALS: BP 139/78
--- NOTE | 2020-05-29 23:20 | NUR ---
ER DISCHARGE NOTE: Patient is cleared to be discharged per ERMD, pt is aox4, on room air, with stable vital signs. pt was given dc and prescription instructions, pt was able to verbalize understanding, pt id band removed. pt is able to ambulate. pt took all belongings.
[2020-05-30] MEDS ORDERED: TYLENOL EXTRA500 MG ORAL (20:54)
== END 2020-05-29 23:20 | disposition home or self-care (01) ==
LOC: EMR 22:55
DX: M25.561 Pain in right knee (principal); M25.562 Pain in left knee; I48.91 Unspecified atrial fibrillation; I50.9 Heart failure, unspecified; I10 Essential (primary) hypertension; Z88.8 Allergy status to other drugs, medicaments and biological substances
CPT/HCPCS: 96372; 99283; J1885

== ENCOUNTER 2020-05-30 20:31 | Emergency (ER) | payer MEDICARE, MEDICAID ==
[~2020-05-30] VITALS: Ht 175.3 cm; Wt 86.2 kg
[~2020-05-30 20:31] MED LIST changes: +ULTRAM50 MG ORAL
[2020-05-30 20:46] VITALS: BP 141/86
[2020-05-30] MEDS ORDERED: TYLENOL EXTRA500 MG ORAL (20:54)
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
[2020-05-30] MEDS ORDERED: Acetaminophen 500mg (ES) tab ORAL ONE (21:00)
[2020-05-30] MEDS ORDERED: Ketorolac 30mg Inj IM ONE (21:00)
[2020-05-30 21:18] VITALS: BP 138/80
== END 2020-05-30 21:18 | disposition home or self-care (01) ==
LOC: EMR 20:55
DX: G89.29 Other chronic pain (principal); M25.562 Pain in left knee; M25.561 Pain in right knee; M79.605 Pain in left leg; M79.604 Pain in right leg; I48.91 Unspecified atrial fibrillation; M19.90 Unspecified osteoarthritis, unspecified site; I11.0 Hypertensive heart disease with heart failure; I50.9 Heart failure, unspecified; Z88.8 Allergy status to other drugs, medicaments and biological substances
CPT/HCPCS: 99282; J1885

== ENCOUNTER 2020-05-31 03:28 | Emergency (ER) | payer MEDICARE, MEDICAID ==
[~2020-05-31] VITALS: Ht 177.8 cm; Wt 96.2 kg
[2020-05-31 03:40] VITALS: BP 116/81
--- NOTE | 2020-05-31 03:40 | NUR ---
ED Nurse Note: pt walked into ED c/o heart palpitations for 2 hours now. Pt reports history of atrial fibrillation. Pt is AAOx4, breathing even and unlabored. Uncontrolled afib on the monitor HR 110s, other vital signs stable.
[2020-05-31] MEDS ORDERED: Carvedilol 6.25mg Tab ORAL ONE (04:15)
--- NOTE | 2020-05-31 04:17 | NUR ---
ED Nurse Note: blood collected and sent to lab
[2020-05-31 04:28] LABS: BASOPHILS % (AUTO) 1.1 % (0.0-2.0); EOSINOPHILS % (AUTO) 3.8 % (0.0-3.0); HEMATOCRIT 46.6 % (42.0-52.0); HEMOGLOBIN 15.5 G/DL (14.2-18.0); LYMPHOCYTES % (AUTO) 20.1 % (20.0-45.0); MEAN CORPUSCULAR VOLUME 94 FL (80-99); NEUTROPHILS % (AUTO) 63.9 % (45.0-75.0); PLATELET COUNT 183 K/UL (150-450); RED BLOOD COUNT 4.97 M/UL (4.70-6.10); RED CELL DISTRIBUTION WIDTH 13.5 % (11.6-14.8); WHITE BLOOD COUNT 7.1 K/UL (4.8-10.8)
[2020-05-31 04:38] LABS: CALCIUM 9.7 MG/DL (8.5-10.1); CREATININE 2.3 MG/DL (0.55-1.30); POTASSIUM 4.2 MMOL/L (3.5-5.1)
--- NOTE | 2020-05-31 04:44 | NUR ---
ED Nurse Note: health records technology teacher at bedside
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
[2020-05-31 04:49] LABS: ALBUMIN 3.3 G/DL (3.4-5.0); BILIRUBIN,TOTAL 0.4 MG/DL (0.2-1.0)
[2020-05-31 05:03] VITALS: BP 104/73
--- NOTE | 2020-05-31 05:53 | NUR ---
ED Nurse Note: pt laying in bed with eyes closed, breathing even and unlabored, opens eyes when name is called. No complaints from pt. Vitals signs stable. Pt in controlled afib HR 70-80s
[2020-05-31 07:02] VITALS: BP 115/76
--- NOTE | 2020-05-31 16:41 | Diagnostic Imaging Report ---
Indication: Chest pain Technique: One view of the chest Comparison: 04/26/2020 Findings: Heart is enlarged. Lungs pleural spaces are clear. The aorta is tortuous and ectatic. No significant change Impression: Cardiomegaly. No acute process
== END 2020-05-31 07:02 | disposition home or self-care (01) ==
LOC: EMR 03:46
DX: I48.91 Unspecified atrial fibrillation (principal); I12.9 Hypertensive chronic kidney disease with stage 1 through stage 4 chronic kidney disease, or unspecified chronic kidney disease; N18.9 Chronic kidney disease, unspecified; I50.9 Heart failure, unspecified; Z79.01 Long term (current) use of anticoagulants; Z88.8 Allergy status to other drugs, medicaments and biological substances; Z91.09 Other allergy status, other than to drugs and biological substances
CPT/HCPCS: 36415; 71045; 80053; 83690; 83880; 84484; 85025; 85379; 85610; 85730; 93005; 96374; 99284; J1940

== ENCOUNTER 2020-06-01 20:19 | Emergency (ER) | payer MEDICARE, MEDICAID ==
[~2020-06-01] VITALS: Ht 177.8 cm; Wt 97.5 kg
[2020-06-01 20:20] VITALS: BP 128/78
--- NOTE | 2020-06-01 20:39 | Emergency Room Report ---
History of Present Illness General Chief Complaint: Pain Source: Patient Present Illness HPI Tylenol and Robaxin with full relief of symptoms. 69-year-old male with chronic bilateral knee pain, osteoarthritis, gout, hypertension, A. fib presents with recurrent chronic knee pain for the past several years. Patient states that he is going to see his primary care doctor on Wednesday. He denies any trauma, injury, falls, swelling, warmth, fever, or any alteration from his regular chronic arthritic pains. The patient's symptoms were gradual onset, severity was mild, duration since several years. Quality: Aching Past medical history: Osteoarthritis, gout, hypertension, A. fib Past surgical history: Denies Smoking: Denies Alcohol use: Denies Drug use: Denies Review of systems: CONST: No fevers or chills, No night sweats PULMONARY: No productive cough, No shortness of breath CARDIAC: No chest pain, No palpitations GI: No vomiting, No diarrhea , No melena_or_BRBPR : No dysuria, No hematuria, No discharge NEURO: No new_focal_weakness_or_numbness, No confusion, No vision changes 14 point Review of Systems is otherwise negative except per HPI Physical Exam: GENERAL: Awake_alert_ nontoxic, no acute distress Spo2 98% on RA -normal EYES: Extraocular muscles are intact. Conjunctivae clear. Lids without swelling ENT: External nose and ear normal_in_appearance. Oropharynx clear. Head_atraumatic, Moist_oral_mucosa NECK: No JVD. No meningismus. No thyromegaly. Supple. Trachea midline RESP: Normal respiratory effort. Symmetric rise. No stridor. Clear_to_auscultation_No_rales_No_wheezes CARDIAC: Regular rate and regular rhytm. No_significant pedal edema. ABDOMEN: Soft. Nondistended. Nontender_No_rebound_or_guarding. MSK: Normal muscle tone, without rigidity. Extremities without asymmetric d eformity or swelling. SKIN: Warm and dry. No visible cyanosis or pallor NEUROLOGIC: Alert, oriented x3. Motor_and_sensation_grossly_intact. No truncal ataxia. Gait_normal Psych: Normal mood and affect, normal judgment and insight - COORDINATION OF CARE Case was discussed with: Patient Medical Decision Making/Plan: Differential diagnosis includes musculoskeletal pain, osteoarthritis/DJD, fracture, dislocation, compartment syndrome, arterial occlusion, nerve damage, among others. Patient is here, afebrile, neurovascularly intact. There is no pain with active or passive range of motion of the bilateral knees. Distally the patient has capillary refill <2 seconds and strong pulses. There is no pallor or pain out of proportion to exam. There is no significant swelling, deformity, or report of significant dislocation that subsequently reduced. No evidence of arterial occlusion or injury. The associated joints have full range of motion without any significant pain or restriction in mobility. No carolina dence at this time of major ligamentous disruption. X-rays are not indicated as this is his chronic knee pain and he denies any trauma. Patient received tylenol and robaxin with full relief of symptoms. Pertinent results reviewed with the patient. I educated the patient on the current treatment plan including the risks, benefits, and alternatives. I also discussed the extent and limitations of the current evaluation. The patient expressed understanding and agreement with plan. I recommended PMD follow-up within 1-2 days. Also advised that the patient return to the Emergency Department as soon as possible if they experience any new, persistent, or worsening symptoms. Allergies: Coded Allergies: ALLOPURINOL (Unverified Allergy, Unknown, Hives, 03/01/20) patient states Allopurinol makes him itch. 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: No Nursing Documentation-PMH Past Medical History: No History, Except For Hx Cardiac Problems: Yes - afib, CHF, gout Hx Hypertension: Yes Hx Pacemaker: No - retina detachment in the rigth eye Hx Asthma: No Hx COPD: No Hx Diabetes: No Hx Cancer: No Hx Gastrointestinal Problems: No Hx Dialysis: No Hx Neurological Problems: No Hx Cerebrovascular Accident: No Hx Seizures: No Physical Exam Vital Signs Date Time Temp Pulse Resp B/P (MAP) Pulse Ox O2 Delivery O2 Flow Rate FiO2 06/01/20 20:20 97.7 81 18 128/78 (95) 98 Room Air Sp02 EP Interpretation: reviewed, normal Medical Decision Making Diagnostic Impression: Primary Impression: Arthritis Additional Impressions: Knee pain Chronic knee pain Last Vital Signs Date Time Temp Pulse Resp B/P (MAP) Pulse Ox O2 Delivery O2 Flow Rate FiO2 06/01/20 20:20 97.7 81 18 128/78 (95) 98 Room Air Disposition: HOME, SELF-CARE Admit Decision Time: 20:39 Condition: Stable Patient Instructions: Arthritis Additional Instructions: 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 Follow-up with your doctor sooner if your condition requires a more timely clinical reevaluation. Return to the emergency department immediately if you feel that your condition is worsening or if you have any new or concerning symptoms. Review your discharge instructions and take any prescriptions given as instructed. [facility] PROVIDES FREE OR LOW-COST HEALTH SERVICES TO PEOPLE WHO CAN SHOW PROOF THAT THEY LIVE IN [facility]. TO FIND MORE CLINICS PARTNERED WITH [facility] TO PROVIDE SERVICE, PLEASE CALL . Nakia Patel D.O. Jun 01, 2020 20:39
[2020-06-01] MEDS ORDERED: Acetaminophen 500mg (ES) tab ORAL ONE (20:45)
[2020-06-01] MEDS ORDERED: Methocarbamol 750mg tab ORAL ONE (20:45)
[2020-06-01 21:00] VITALS: BP 125/82
== END 2020-06-01 21:00 | disposition home or self-care (01) ==
LOC: EMR 20:30
DX: M19.90 Unspecified osteoarthritis, unspecified site (principal); G89.29 Other chronic pain; M25.562 Pain in left knee; M25.561 Pain in right knee; I48.91 Unspecified atrial fibrillation; I11.0 Hypertensive heart disease with heart failure; I50.9 Heart failure, unspecified; Z88.8 Allergy status to other drugs, medicaments and biological substances; Z91.09 Other allergy status, other than to drugs and biological substances
CPT/HCPCS: 99282

== ENCOUNTER 2020-06-09 09:39 | Emergency (ER) | payer MEDICARE, MEDICAID ==
[~2020-06-09] VITALS: Ht 177.8 cm; Wt 97.5 kg
[2020-06-09 09:52] VITALS: BP 145/99
--- NOTE | 2020-06-09 09:53 | NUR ---
ED Nurse Note: Patient walked in to ED c/o right shoulder pain onset yesterday. Patient also reports bilateral knee pain, denies fall or injuries to both knees and shoulder. Patient has steady gait, AAO x4, VSS at this time.
[2020-06-09] MEDS ORDERED: oxyCODONE HCL/Acetaminophen 5/325mg ORAL ONE (10:15)
--- NOTE | 2020-06-09 10:16 | Emergency Room Report ---
History of Present Illness General Chief Complaint: Pain Source: Patient Present Illness HPI Patient presents requesting treatment of exacerbation of chronic pain in his shoulders and knee. [place] left knee that is tender at this time. He is ambulatory. He was recently hospitalized and his primary physician states that this pain is caused by osteoarthritis not gout. The patient does have a history of gout. During the hospitalization fluid was removed from his edema through the use of diuretics. Patient has a history of atrial fibrillation. He is on Eliquis. In the past he has been treated with Toradol IM for his pain. Patient also has a history of congestive heart failure. Patient denies exposure to Covid positive contacts. No fevers, chills, sore throat, chest pain, palpitations, nausea, vomiting, diarrhea, dysuria, abdominal pain, shortness of breath, rashes, depression, anxiety, dizziness, headache. History of retinal detachment right eye. Allergies: Coded Allergies: ALLOPURINOL (Unverified Allergy, Unknown, Hives, 03/01/20) patient states Allopurinol makes him itch. 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 Reviewed Nursing Documentation: PMH: Agreed; PSxH: Agreed Nursing Documentation-PMH Hx Cardiac Problems: Yes - afib, CHF, gout Hx Hypertension: Yes Hx Pacemaker: No - retina detachment in the rigth eye Hx Asthma: No Hx COPD: No Hx Diabetes: No Hx Cancer: No Hx Gastrointestinal Problems: No Hx Dialysis: No Hx Neurological Problems: No Hx Cerebrovascular Accident: No Hx Seizures: No Review of Systems All Other Systems: negative except mentioned in HPI Physical Exam Vital Signs Date Time Temp Pulse Resp B/P (MAP) Pulse Ox O2 Delivery O2 Flow Rate FiO2 06/09/20 09:42 97.9 89 18 145/99 (114) 98 Room Air Sp02 EP Interpretation: reviewed, normal General Appearance: well appearing, no apparent distress, GCS 15 Head: normocephalic Eyes: right eye other - Some decreased vision; bilateral eye normal inspection ENT: moist mucus membranes Neck: supple Respiratory: lungs clear, normal breath sounds Cardiovascular #1: irregularly irregular, edema Cardiovascular #2: 2+ radial (R) Gastrointestinal: normal inspection, normal bowel sounds, non tender, no mass, non-distended, overweight Musculoskeletal: back normal, decreased range of motion - Knees, no calf tenderness, moves extm spontaneously, gait/station normal Neurologic: alert, oriented x3, grossly normal Psychiatric: mood/affect normal Skin: no rash, warm/dry, other - Fully dressed Medical Decision Making Diagnostic Impression: Primary Impression: Arthritis pain Additional Impression: Atrial fibrillation Qualified Codes: I48.11 - Longstanding persistent atrial fibrillation ER Course Patient presents with exacerbation of chronic pain. Differential includes gout, osteoarthritis, other arthritis, drug-seeking behavior amongst others. Patient in the past has refused lab tests and simply is requesting a pain shot. Due to renal failure and being on Eliquis Toradol not appropriate to give at this time. Patient administered Percocet, Phenergan and colchicine. Patient improved with treatment. Discussed the need to follow-up with a chronic pain doctor and his own private doctor. Also advised to return if he is not well in any manner. Patient stable for outpatient observation and treatment. Last Vital Signs Date Time Temp Pulse Resp B/P (MAP) Pulse Ox O2 Delivery O2 Flow Rate FiO2 06/09/20 10:35 97.9 18 145/99 98 Room Air 06/09/20 09:42 89 Status: improved Disposition: HOME, SELF-CARE Condition: Improved Tim Gil MD Jun 09, 2020 10:16
[2020-06-09 10:35] VITALS: BP 145/99
== END 2020-06-09 10:36 | disposition home or self-care (01) ==
LOC: EMR 10:17
DX: M19.90 Unspecified osteoarthritis, unspecified site (principal); G89.29 Other chronic pain; I48.11 Longstanding persistent atrial fibrillation; Z79.01 Long term (current) use of anticoagulants; Z88.8 Allergy status to other drugs, medicaments and biological substances; I10 Essential (primary) hypertension; E66.3 Overweight; Z68.30 Body mass index [BMI] 30.0-30.9, adult
CPT/HCPCS: 96372; 99283; J2550

== ENCOUNTER 2020-06-11 22:19 | Emergency (ER) | payer MEDICARE, MEDICAID ==
[~2020-06-11] VITALS: Ht 180.3 cm; Wt 113.4 kg
[2020-06-11 22:30] VITALS: BP 151/100
[2020-06-11] MEDS ORDERED: Ketorolac 30mg Inj IM ONE (22:45)
[2020-06-11] MEDS ORDERED: Neosporin Oint Ud Pkt TOPIC ONE (22:45)
--- NOTE | 2020-06-11 22:46 | Emergency Room Report ---
History of Present Illness General Chief Complaint: Pain Source: Patient, Medical Record Present Illness HPI Patient 69-year-old male presents to the ER complaining of abrasion to his left index finger. Patient states that he hit it on a door and scraped some of the skin off. He denies any pain. He states his last tetanus shot was 1 year ago. He denies any fever or chills. Patient also complains of chronic arthritis pain to his bilateral knees and elbows. He denies any focal weakness. Denies any trauma otherwise. Patient states that he was at [facility] and was given some pain medication for his pain. He states that for the abrasion he put some triple antibiotic cream on it but wanted to have it checked out and possibly obtain a Band-Aid. Allergies: Coded Allergies: ALLOPURINOL (Unverified Allergy, Unknown, Hives, 03/01/20) patient states Allopurinol makes him itch. 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-19 Testing performed POT PUNCHER: No Patient History Reviewed Nursing Documentation: PMH: Agreed; PSxH: Agreed Nursing Documentation-PMH Hx Cardiac Problems: Yes - afib, CHF, gout Hx Hypertension: Yes Hx Pacemaker: No - retina detachment in the rigth eye Hx Asthma: No Hx COPD: No Hx Diabetes: No Hx Cancer: No Hx Gastrointestinal Problems: No Hx Dialysis: No Hx Neurological Problems: No Hx Cerebrovascular Accident: No Hx Seizures: No Review of Systems All Other Systems: negative except mentioned in HPI Physical Exam Vital Signs Date Time Temp Pulse Resp B/P (MAP) Pulse Ox O2 Delivery O2 Flow Rate FiO2 06/11/20 22:29 98.1 89 12 151/100 (117) 98 Room Air Sp02 EP Interpretation: reviewed, normal General Appearance: no apparent distress, alert, GCS 15, non-toxic Head: normocephalic, atraumatic Eyes: bilateral eye normal inspection, bilateral eye PERRL ENT: hearing grossly normal, normal pharynx, no angioedema, normal voice Neck: full range of motion, supple/symm/no masses Respiratory: chest non-tender, lungs clear, normal breath sounds, speaking full sentences Cardiovascular #1: irregularly irregular Gastrointestinal: non tender, soft, overweight Rectal: deferred Musculoskeletal: normal range of motion, no calf tenderness 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 Local wound care is been performed. Patient given toradol for pain control for chronic arthritis pain. After discussing risks and benefits of further diagnostics, treatment plans, as well as indications for and risks of admission, the patient is agreeable to being discharged home. I have explained that their evaluation and treatment in the emergency department today is an important step towards them achieving better health but that their evaluation today is not intended to replace further evaluation and treatment by a physician in their local clinic. I have explained that while the current findings suggest no immediate life threatening emergency they will require further evaluation and treatment by a physician of their choice in their area. They understand that it will be necessary for them to review the final reports of their ED visit with their clinic physician. We have reviewed indications for return to the Emergency Department. I have explained that additional time may need to pass and/or additional testing as an outpatient may be necessary before a definitive diagnosis can be made. They tell me they are willing to follow up as instructed within the timeframe I recommend. They appear to understand what we discussed. Additionally they understand that if they are unable to be seen by an outpatient physician they are welcome, and in fact should, return to the Emergency Department for a repeat evaluation. The patient is stable at time of discharge. Last Vital Signs Date Time Temp Pulse Resp B/P (MAP) Pulse Ox O2 Delivery O2 Flow Rate FiO2 06/11/20 22:29 98.1 89 12 151/100 (117) 98 Room Air Disposition: HOME, SELF-CARE Condition: Stable Patient Instructions: Arthritis, [id number], Abrasion, [id number] Additional Instructions: The patient was provided with discharge instructions, notified to follow-up with a primary care doctor and or specialist in the next 24-48 hours, and to return to the ED if they have worsening of their symptoms. Please note that this report is being documented using [employer] technology. This can lead to erroneous entry secondary to incorrect interpretation by the dictating instrument. Lolis Cano M.D. Jun 11, 2020 22:46
[2020-06-11 23:10] VITALS: BP 138/77
== END 2020-06-11 23:47 | disposition home or self-care (01) ==
LOC: EMR 22:37
DX: S60.411A Abrasion of left index finger, initial encounter (principal); W22.8XXA Striking against or struck by other objects, initial encounter; M19.90 Unspecified osteoarthritis, unspecified site; I11.0 Hypertensive heart disease with heart failure; I50.9 Heart failure, unspecified; M10.9 Gout, unspecified; Y92.9 Unspecified place or not applicable; Z88.8 Allergy status to other drugs, medicaments and biological substances; I48.91 Unspecified atrial fibrillation
CPT/HCPCS: 96372; 99283; J1885

== ENCOUNTER 2020-06-13 07:05 | Emergency (ER) | payer MEDICARE, MEDICAID ==
[~2020-06-13] VITALS: Ht 177.8 cm; Wt 101.2 kg
--- NOTE | 2020-06-13 07:22 | Emergency Room Report ---
History of Present Illness General Chief Complaint: Pain Present Illness HPI 69-year-old male well-known to the emergency department here complaining of arthritic pain. Patient suffers from chronic arthritic pain in his bilateral knees and bilateral shoulders. He is requesting a shot of Toradol. Also says that he has a mild laceration on his left index finger that he suffered 3 days ago when he accidentally struck his left hand against a doorknob. There is no pus drainage or bleeding or skin change. He is requesting "some kind of artificial skin" to place over the laceration. Denies headache, vision change, fevers, chills, chest pain, palpitation, shortness of breath, back pain, abdominal pain, nausea, vomiting, diarrhea, dysuria. Allergies: Coded Allergies: ALLOPURINOL (Unverified Allergy, Unknown, Hives, 03/01/20) patient states Allopurinol makes him itch. 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: No Nursing Documentation-PMH Hx Cardiac Problems: Yes - afib, CHF, gout Hx Hypertension: Yes Hx Pacemaker: No - retina detachment in the rigth eye Hx Asthma: No Hx COPD: No Hx Diabetes: No Hx Cancer: No Hx Gastrointestinal Problems: No Hx Dialysis: No Hx Neurological Problems: No Hx Cerebrovascular Accident: No Hx Seizures: No Review of Systems All Other Systems: negative except mentioned in HPI Physical Exam Vital Signs Date Time Temp Pulse Resp B/P (MAP) Pulse Ox O2 Delivery O2 Flow Rate FiO2 06/13/20 07:10 98.1 66 18 148/94 (112) 97 Room Air Sp02 EP Interpretation: reviewed, normal General Appearance: no apparent distress, alert, non-toxic Head: normocephalic, atraumatic Eyes: bilateral eye normal inspection, bilateral eye PERRL ENT: hearing grossly normal, normal pharynx, no angioedema, normal voice Neck: full range of motion, supple/symm/no masses Respiratory: chest non-tender, lungs clear, normal breath sounds, speaking full sentences Cardiovascular #1: regular rate, rhythm, no edema Cardiovascular #2: 2+ carotid (R), 2+ carotid (L), 2+ radial (R), 2+ radial (L), 2+ dorsalis pedis (R), 2+ dorsalis pedis (L) Gastrointestinal: normal bowel sounds, non tender, soft, non-distended, no guarding, no rebound Rectal: deferred Genitourinary: normal inspection, no CVA tenderness Musculoskeletal: back normal, normal range of motion, gait/station normal, non- tender, other - Superficial 1 cm abrasion on the extensor surface of the proximal left index finger Neurologic: alert, motor strength/tone normal, oriented x3, sensory intact, responsive, speech normal Psychiatric: judgement/insight normal, memory normal, mood/affect normal, no suicidal/homicidal ideation Lymphatic: no adenopathy Procedures Laceration/Wound Repair Laceration/Wound Repair : Consent: Verbal Wound Location: other - Left index finger Wound Explored: clean Wound Repaired With: Dermabond Sterile Dressing Applied?: Yes Splint Applied?: No Sling Applied?: No Patient Tolerated: Well Complications: None Medical Decision Making Diagnostic Impression: Primary Impression: Skin abrasion Additional Impression: Arthritis ER Course 69-year-old male here with skin abrasion and arthritis. Patient was hemodynamically stable in the emergency department. He was given Toradol as requested. He had a superficial abrasion of his left index finger. Dermabond was placed as described above. Patient felt much improved and was discharged. Last Vital Signs Date Time Temp Pulse Resp B/P (MAP) Pulse Ox O2 Delivery O2 Flow Rate FiO2 06/13/20 07:10 98.1 66 18 148/94 (112) 97 Room Air Dann Pollard M.D. Jun 13, 2020 07:22
[2020-06-13 07:25] VITALS: BP 148/94
[2020-06-13] MEDS ORDERED: Ketorolac 60mg Inj IM ONE (07:30)
[2020-06-13 07:32] VITALS: BP 140/86
== END 2020-06-13 07:32 | disposition home or self-care (01) ==
LOC: EMR 07:22
DX: S60.411A Abrasion of left index finger, initial encounter (principal); M17.0 Bilateral primary osteoarthritis of knee; M19.012 Primary osteoarthritis, left shoulder; M19.011 Primary osteoarthritis, right shoulder; I11.0 Hypertensive heart disease with heart failure; I50.9 Heart failure, unspecified; I48.91 Unspecified atrial fibrillation; W22.8XXA Striking against or struck by other objects, initial encounter; Y93.9 Activity, unspecified; Y92.9 Unspecified place or not applicable; Z88.8 Allergy status to other drugs, medicaments and biological substances
CPT/HCPCS: 96372; 99283

== ENCOUNTER 2020-06-17 18:12 | Emergency (ER) | payer MEDICARE, MEDICAID ==
[~2020-06-17] VITALS: Ht 180.3 cm; Wt 97.5 kg
--- NOTE | 2020-06-17 18:18 | Emergency Room Report ---
History of Present Illness General Chief Complaint: To Be Triaged Present Illness HPI 69-year-old male with history of CHF and chronic leg swelling and pain who has been here multiple times and currently on Lasix and all other medication regarding his condition complaining of worsening chronic leg pain x2 days. Also patient was seen at [facility] for an abrasion to left index finger few days ago and is requesting antibiotics. Has range of motion of the affected side and is neurovascularly intact. No pus drainage noted. Is closing normally to secondary intention. Denies fever and chills at this time. Denies chest pain or shortness of breath. Allergies: Coded Allergies: ALLOPURINOL (Unverified Allergy, Unknown, Hives, 03/01/20) patient states Allopurinol makes him itch. Uncoded Allergies: Electrode (Allergy, Intermediate, Icting, 06/27/19) COVID-19 Screening Contact w/high risk pt: No Recent Travel to affected area: No Experienced COVID-19 symptoms?: No Patient History Past Medical History: see triage record Past Surgical History: none Pertinent Family History: none Reviewed Nursing Documentation: PMH: Agreed; PSxH: Agreed Nursing Documentation-PMH Hx Cardiac Problems: Yes - afib, CHF, gout Hx Hypertension: Yes Hx Pacemaker: No - retina detachment in the rigth eye Hx Asthma: No Hx COPD: No Hx Diabetes: No Hx Cancer: No Hx Gastrointestinal Problems: No Hx Dialysis: No Hx Neurological Problems: No Hx Cerebrovascular Accident: No Hx Seizures: No Review of Systems All Other Systems: negative except mentioned in HPI Physical Exam Sp02 EP Interpretation: reviewed, normal General Appearance: no apparent distress, alert, GCS 15, non-toxic Head: normocephalic, atraumatic Eyes: bilateral eye normal inspection, bilateral eye PERRL ENT: hearing grossly normal, normal pharynx, no angioedema, normal voice Neck: full range of motion, supple/symm/no masses Respiratory: chest non-tender, lungs clear, normal breath sounds, no retraction, speaking full sentences Cardiovascular #1: regular rate, rhythm, no edema Cardiovascular #2: 2+ carotid (R), 2+ carotid (L), 2+ radial (R), 2+ radial (L), 2+ dorsalis pedis (R), 2+ dorsalis pedis (L) Gastrointestinal: normal bowel sounds, non tender, soft, non-distended, no guarding, no rebound Musculoskeletal: back normal, no calf tenderness, gait/station normal, non- tender Neurologic: alert, motor strength/tone normal, oriented x3, sensory intact, responsive, speech normal Psychiatric: judgement/insight normal, memory normal, mood/affect normal, no suicidal/homicidal ideation Skin: abrasion - Healing abrasion left index finger Lymphatic: no adenopathy Medical Decision Making PA Attestation All my diagnosis and treatment plans were reviewed ad discussed with my supervising physician Dr. Castillo Diagnostic Impression: Primary Impression: Chronic leg pain Additional Impression: Infected abrasion ER Course 69-year-old male with history of CHF and chronic leg swelling and pain who has been here multiple times and currently on Lasix and all other medication regarding his condition complaining of worsening chronic leg pain x2 days. Also patient was seen at [facility] for an abrasion to left index finger few days ago and is requesting antibiotics. Has range of motion of the affected side and is neurovascularly intact. No pus drainage noted. Is closing normally to secondary intention. Denies fever and chills at this time. Denies chest pain or shortness of breath. Ddx considered but are not limited to : Cellulitis, DVT, superficial infection, abscess Vital signs: are WNL, pt. is afebrile H&PE are most consistent with: Leg pain, infected abrasion ORDERS: Augmentin, Tylenol ED INTERVENTIONS: Wound clean, Tylenol DISCHARGE: At this time pt. is stable for d/c to home. Will provide printed patient care instructions, and any necessary prescriptions. Care plan and follow up instructions have been discussed with the patient prior to discharge. Patient take medication as directed, follow primary care provider, if worsening symptoms return to the emergency room Disposition: HOME, SELF-CARE Condition: Stable Scripts Acetaminophen* (ACETAMINOPHEN 325MG TABLET*) 325 Mg Tablet 650 MG ORAL Q6H PRN for For Pain, #30 TAB Prov: Bailee Rizvi 06/17/20 Amoxicillin/Potassium Clav 875-125* (AUGMENTIN 875-125 TABLET*) 1 Each Tablet 1 TAB ORAL TWICE A DAY for 5 Days, #10 TAB Prov: Bailee Rizvi 06/17/20 Patient Instructions: Abrasion, [id number], Chronic Pain Additional Instructions: Take medication as directed, follow primary care provider, if worsening symptoms return to the emergency room Bailee Rizvi Jun 17, 2020 18:18
[2020-06-17 18:21] VITALS: BP 112/82
[2020-06-17] MEDS ORDERED: ACETAMINOPHEN325 M1 ORAL (18:26)
[2020-06-17] MEDS ORDERED: AUGMENTIN 875-1 EAC1 ORAL (18:26)
[2020-06-17 18:35] VITALS: BP 112/82
== END 2020-06-17 18:35 | disposition home or self-care (01) ==
LOC: EMR 18:30
DX: M79.605 Pain in left leg (principal); M79.604 Pain in right leg; S60.411A Abrasion of left index finger, initial encounter; L08.9 Local infection of the skin and subcutaneous tissue, unspecified; X58.XXXA Exposure to other specified factors, initial encounter; Y92.9 Unspecified place or not applicable; I48.91 Unspecified atrial fibrillation; I11.0 Hypertensive heart disease with heart failure; I50.9 Heart failure, unspecified; M10.9 Gout, unspecified; Z88.8 Allergy status to other drugs, medicaments and biological substances
CPT/HCPCS: 99282

== ENCOUNTER 2020-06-20 18:51 | Emergency (ER) | payer MEDICARE, MEDICAID ==
[~2020-06-20] VITALS: Ht 180.3 cm; Wt 97.5 kg
[~2020-06-20 18:51] MED LIST changes: +AUGMENTIN 875-1 EAC1 ORAL
--- NOTE | 2020-06-20 19:08 | NUR ---
ED Nurse Note: Pt walked in the er due to left 2nd finger pain. pt has healing wound that happend 2 weeks ago. the wound it healing,no sign of infection, and vitals are stable.
[2020-06-20 19:15] VITALS: BP 125/86
--- NOTE | 2020-06-20 19:44 | Emergency Room Report ---
History of Present Illness General Chief Complaint: Skin Rash/Abscess Source: Patient Present Illness HPI 69 YO male presents to the ED c/o 04/13 in severity left index finger pain. Pt. reports laceration 9 days ago. Pt. reports he had dermabond placed and has been applying ointment. Pt reports frequent re-opening of skin and bleeding. Pt. reports taking eliquis. Pt. denies swelling or erythema. he denies fevers or chills. pt. reports he bumps in regularly when putting his hand in and out of his pockets. Pt. reports he is UTD with tetanus. He denies any additional trauma. he is currently taking augmenting which was previously prescribed to him. Pt. requesting new application of dermabond. Allergies: Coded Allergies: ALLOPURINOL (Unverified Allergy, Unknown, Hives, 03/01/20) patient states Allopurinol makes him itch. 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-19 Testing performed SPOTLIGHT OPERATOR: No Patient History Past Medical History: see triage record Past Surgical History: none Pertinent Family History: none Immunizations: UTD Reviewed Nursing Documentation: PMH: Agreed; PSxH: Agreed Nursing Documentation-PMH Past Medical History: No History, Except For Hx Cardiac Problems: Yes - afib, CHF, gout Hx Hypertension: Yes Hx Pacemaker: No - retina detachment in the rigth eye Hx Asthma: No Hx COPD: No Hx Diabetes: No Hx Cancer: No Hx Gastrointestinal Problems: No Hx Dialysis: No Hx Neurological Problems: No Hx Cerebrovascular Accident: No Hx Seizures: No Review of Systems All Other Systems: negative except mentioned in HPI Physical Exam Vital Signs Date Time Temp Pulse Resp B/P (MAP) Pulse Ox O2 Delivery O2 Flow Rate FiO2 06/20/20 19:04 98.1 77 17 128/88 (101) 98 Room Air Sp02 EP Interpretation: reviewed, normal General Appearance: no apparent distress, alert, GCS 15, non-toxic Head: normocephalic, atraumatic Eyes: bilateral eye normal inspection, bilateral eye PERRL ENT: hearing grossly normal, normal voice Neck: full range of motion Respiratory: lungs clear, normal breath sounds, speaking full sentences Cardiovascular #1: regular rate, rhythm, normal capillary refill Musculoskeletal: normal range of motion, gait/station normal, non-tender Neurologic: alert, motor strength/tone normal, oriented x3, sensory intact, responsive, speech normal Psychiatric: judgement/insight normal Skin: abrasion - 1cm abrasion of skin on the dorsum of the left index finger. No evidence of infection, FROM. no obvious bleeding at this time. NVI Procedures Laceration/Wound Repair Laceration/Wound Repair : Consent: Verbal Wound Location: upper extremity - left index finger Wound's Depth, Shape: superficial Wound Length (cm): 1 Wound Explored: contaminated - ointment that was previously place. Irrigated w/ Saline (ccs): 500 Wound Repaired With: Dermabond Sterile Dressing Applied?: No Splint Applied?: No Sling Applied?: No Patient Tolerated: Well Complications: None Medical Decision Making PA Attestation Dr. Lemon is my supervising Physician whom patient management has been discussed with. Diagnostic Impression: Primary Impression: Finger abrasion Qualified Codes: S60.419A - Abrasion of unspecified finger, initial encou nter ER Course 69 YO male presents to the ED c/o 04/13 in severity left index finger pain. Pt. reports laceration 9 days ago. Pt. reports he had dermabond placed and has been applying ointment. Pt reports frequent re-opening of skin and bleeding. Pt. reports taking eliquis. Pt. denies swelling or erythema. he denies fevers or chills. pt. reports he bumps in regularly when putting his hand in and out of his pockets. Pt. reports he is UTD with tetanus. He denies any additional trauma. he is currently taking augmenting which was previously prescribed to him. Pt. requesting new application of dermabond. Ddx considered but are not limited to laceration, tendon injury, cellulitis, amputation Vital signs: are WNL, pt. is afebrile H&PE are most consistent with: 1cm abrasion of skin on the dorsum of the left index finger. No evidence of infection, FROM. no obvious bleeding at this time. NVI ORDERS: none required at this time, the diagnosis is clinical ED INTERVENTIONS: - Motrin PO -Wound irrigation performed by ED RN. -Dermabond was applied to left index finger. -I do not identify an emergent condition at this time. With current presentation, pt. is stable for close outpatient follow up and conservative treatment. D/w pt. to return promptly to ED with worsening or new symptoms.- Pt. verbalizes' understanding and agreement with proposed treatment plan. DISCHARGE: At this time pt. is stable for d/c to home. Will provide printed patient care instructions, and any necessary prescriptions. Care plan and follow up instructions have been discussed with the patient prior to discharge. Last Vital Signs Date Time Temp Pulse Resp B/P (MAP) Pulse Ox O2 Delivery O2 Flow Rate FiO2 06/20/20 19:04 98.1 77 17 128/88 (101) 98 Room Air Status: improved Disposition: HOME, SELF-CARE Condition: Stable Patient Instructions: Abrasion, [id number] Additional Instructions: Take medications as directed. Follow up with a Primary Care Provider in 3-5 days, even if your symptoms have resolved. Return sooner to ED if new symptoms occur, or current symptoms become worse. - Please note that this Emergency Department Report was dictated using [employer] rehab director technology software, occasionally this can lead to erroneous entry secondary to interpretation by the dictation equipment. Amy Salmon Jun 20, 2020 19:44
[2020-06-20 20:00] VITALS: BP 125/86
== END 2020-06-20 20:00 | disposition home or self-care (01) ==
LOC: EMR 19:32
DX: S60.411A Abrasion of left index finger, initial encounter (principal); I48.91 Unspecified atrial fibrillation; I10 Essential (primary) hypertension; X58.XXXA Exposure to other specified factors, initial encounter; Y93.9 Activity, unspecified; Y92.9 Unspecified place or not applicable; Z88.8 Allergy status to other drugs, medicaments and biological substances; Z79.01 Long term (current) use of anticoagulants
CPT/HCPCS: 99282

== ENCOUNTER 2020-06-22 07:07 | Emergency (ER) | payer MEDICARE, MEDICAID ==
[~2020-06-22] VITALS: Ht 175.3 cm; Wt 97.5 kg
[2020-06-22 07:28] VITALS: BP 131/86
[2020-06-22 07:45] VITALS: BP 132/84
--- NOTE | 2020-06-22 08:55 | Emergency Room Report ---
History of Present Illness General Chief Complaint: Laceration Source: Patient, Medical Record Present Illness HPI 69-year-old male presents for wound check. Sustained a laceration to his left index finger few weeks ago. Was repaired with Dermabond here is here for wound check. States that he gets irritated every time he puts his hand into his pocket. Denies pain. Denies any bleeding. Denies any discharge. No other aggravating relieving factors. Denies any other associated symptoms Allergies: Coded Allergies: ALLOPURINOL (Unverified Allergy, Unknown, Hives, 03/01/20) patient states Allopurinol makes him itch. 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-19 Testing performed AIRFRAME TECHNICAL OFFICER: No Patient History Past Medical History: AFib, other - Gout Past Surgical History: none Pertinent Family History: none Social History: Denies: smoking, alcohol use, drug use Immunizations: UTD Reviewed Nursing Documentation: PMH: Agreed; PSxH: Agreed Nursing Documentation-PMH Past Medical History: No History, Except For Hx Cardiac Problems: Yes - afib, CHF, gout Hx Hypertension: Yes Hx Pacemaker: No - retina detachment in the rigth eye Hx Asthma: No Hx COPD: No Hx Diabetes: No Hx Cancer: No Hx Gastrointestinal Problems: No Hx Dialysis: No Hx Neurological Problems: No Hx Cerebrovascular Accident: No Hx Seizures: No Review of Systems All Other Systems: negative except mentioned in HPI Physical Exam Vital Signs Date Time Temp Pulse Resp B/P (MAP) Pulse Ox O2 Delivery O2 Flow Rate FiO2 06/22/20 07:13 98.6 73 20 131/86 (101) 97 Room Air Sp02 EP Interpretation: reviewed, normal General Appearance: no apparent distress, alert, GCS 15, non-toxic Head: normocephalic, atraumatic Eyes: bilateral eye normal inspection, bilateral eye PERRL ENT: hearing grossly normal, normal pharynx, no angioedema, normal voice Neck: full range of motion, supple/symm/no masses Respiratory: chest non-tender, lungs clear, normal breath sounds, speaking full sentences Cardiovascular #1: regular rate, rhythm, no edema Cardiovascular #2: 2+ carotid (R), 2+ carotid (L), 2+ radial (R), 2+ radial (L), 2+ dorsalis pedis (R), 2+ dorsalis pedis (L) Gastrointestinal: normal bowel sounds, non tender, soft, non-distended, no guarding, no rebound Rectal: deferred Genitourinary: normal inspection, no CVA tenderness Musculoskeletal: back normal, normal range of motion, gait/station normal, non- tender Neurologic: alert, motor strength/tone normal, oriented x3, sensory intact, responsive, speech normal Psychiatric: judgement/insight normal, memory normal, mood/affect normal, no suicidal/homicidal ideation Reflexes: 3+ bicep (R), 3+ bicep (L), 3+ tricep (R), 3+ tricep (L), 3+ knee (R), 3+ knee (L) Skin: other - Healing laceration to left index finger dorsum. No discharge. Wound approximated. Full range of motion noted. Lymphatic: no adenopathy Medical Decision Making Diagnostic Impression: Primary Impression: Laceration ER Course Hospital Course 69-year-old male presents with wound check. Status post laceration of left index finger Clinical course Patient placed on stretcher. On exam there is a healing laceration to the left index finger dorsum. Wound is approximated. There is no discharge. No erythema or swelling. Some scabs noted. I explained there is no further intervention required at this time. No reasons for continued antibiotics or Dermabond. Wound cleaned and Band-Aid applied. Safe for discharge and close outpatient follow-up. States he has a PMD Diagnosis - laceration Stable and discharged to home. Followup with PMD. Return to ED if any signs of infection develop Last Vital Signs Date Time Temp Pulse Resp B/P (MAP) Pulse Ox O2 Delivery O2 Flow Rate FiO2 06/22/20 07:45 98.6 81 21 132/84 98 Room Air Status: improved Disposition: HOME, SELF-CARE Condition: Stable Referrals: Mariano Alaniz MD (PCP) Patient Instructions: Nonsutured Laceration Care Mateo Galeano MD Jun 22, 2020 08:55
== END 2020-06-22 07:45 | disposition home or self-care (01) ==
LOC: EMR 07:32
DX: S61.211D Laceration without foreign body of left index finger without damage to nail, subsequent encounter (principal); I48.91 Unspecified atrial fibrillation; I11.0 Hypertensive heart disease with heart failure; I50.9 Heart failure, unspecified; X58.XXXD Exposure to other specified factors, subsequent encounter; Z88.8 Allergy status to other drugs, medicaments and biological substances; Z91.09 Other allergy status, other than to drugs and biological substances
CPT/HCPCS: 99281

== ENCOUNTER 2020-06-22 21:08 | Emergency (ER) | payer MEDICARE, MEDICAID ==
[~2020-06-22] VITALS: Ht 177.8 cm; Wt 97.5 kg
--- NOTE | 2020-06-22 21:28 | Emergency Room Report ---
History of Present Illness General Chief Complaint: Pain Source: Patient Present Illness HPI Disclaimer: Please note that this report is being documented using [employer] technology. This can lead to erroneous entry secondary to incorrect interpretation by the dictating instrument. HPI: 65-year-old male history of atrial fibrillation Eliquis presents for evaluation of abrasion to left index finger. Sustained an abrasion to the left index finger 4 days ago and continues to ooze because he is on Eliquis. He is requesting a Dermabond cover which he states he has had in the past. Denies other complaints at this time. PMH: Atrial fibrillation, CHF, on Eliquis PSH: Reviewed Allergies: Reviewed Social Hx: Reviewed Allergies: Coded Allergies: ALLOPURINOL (Unverified Allergy, Unknown, Hives, 03/01/20) patient states Allopurinol makes him itch. 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: Yes - 06/18/20 COVID-19 Screening: Negative COVID-19 COVID-19 Testing Source: [facility] Nursing Documentation-PMH Hx Cardiac Problems: Yes - afib, CHF, gout Hx Hypertension: Yes Hx Pacemaker: No - retina detachment in the rigth eye Hx Asthma: No Hx COPD: No Hx Diabetes: No Hx Cancer: No Hx Gastrointestinal Problems: No Hx Dialysis: No Hx Neurological Problems: No Hx Cerebrovascular Accident: No Hx Seizures: No Review of Systems All Other Systems: negative except mentioned in HPI Physical Exam Vital Signs Date Time Temp Pulse Resp B/P (MAP) Pulse Ox O2 Delivery O2 Flow Rate FiO2 06/22/20 21:16 97.9 76 18 139/85 (103) 99 Room Air General: Awake and alert, no acute distress HEENT: NC/AT. EOMI. Resp: Normal work of breathing Skin: Intact. 2 small abrasions over the dorsal aspect of the left index finger. Mild oozing. No laceration. No brisk bleeding. MSK: Normal tone and bulk. Moving all extremities. Ambulating with steady gait. Neuro: Awake and alert. Mentating appropriately Medical Decision Making Diagnostic Impression: Primary Impression: Skin abrasion ER Course 69-year-old male presents for evaluation of left index finger abrasion. Dermabond applied. Does not require closure. Follow-up with PMD. Return with new or worsening symptoms. Last Vital Signs Date Time Temp Pulse Resp B/P (MAP) Pulse Ox O2 Delivery O2 Flow Rate FiO2 06/22/20 21:16 97.9 76 18 139/85 (103) 99 Room Air Disposition: HOME, SELF-CARE Condition: Stable Sebastian Payton MD Jun 22, 2020 21:28
[2020-06-22 21:34] VITALS: BP 139/85
[2020-06-22 21:44] VITALS: BP 139/85
== END 2020-06-22 21:45 | disposition home or self-care (01) ==
LOC: EMR 21:28
DX: S61.211A Laceration without foreign body of left index finger without damage to nail, initial encounter (principal); I48.91 Unspecified atrial fibrillation; I11.0 Hypertensive heart disease with heart failure; I50.9 Heart failure, unspecified; X58.XXXA Exposure to other specified factors, initial encounter; Y93.9 Activity, unspecified; Y92.9 Unspecified place or not applicable; Z79.01 Long term (current) use of anticoagulants; Z88.8 Allergy status to other drugs, medicaments and biological substances; Z91.09 Other allergy status, other than to drugs and biological substances
CPT/HCPCS: 99282

== ENCOUNTER 2020-06-26 22:39 | Emergency (ER) | payer MEDICARE, MEDICAID ==
[~2020-06-26] VITALS: Ht 177.8 cm; Wt 98.0 kg
[2020-06-26] MEDS ORDERED: ACETAMINOPHEN500 M3 ORAL (23:58)
--- NOTE | 2020-06-26 23:59 | Emergency Room Report ---
History of Present Illness General Chief Complaint: Pain Source: Patient Present Illness HPI This is a 69-year-old male with a history of A. fib, CHF and arthritis. He presents with chief complaint of knee pain and shoulder pain. He is well-known to this ER and other ER in the area. He was just discharged from [facility] for rapid atrial fibrillation and CHF. He was discharged this morning. This would be his ninth visit this month. He averages around 8-10 visit to this ER every month. Patient said he did not get any pain medication even though his discharge paperwork told him to continue with Ultram. Pain is chronic in nature. Worse with walking. No fever chills. No trauma. Allergies: Coded Allergies: ALLOPURINOL (Unverified Allergy, Unknown, Hives, 03/01/20) patient states Allopurinol makes him itch. 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 EXTERMINATOR: Yes - 06/23/20 COVID-19 Screening: Negative COVID-19 COVID-19 Testing Source: [facility] Patient History Past Medical History: see triage record, old chart reviewed, HTN, CHF, AFib Past Surgical History: other Pertinent Family History: none Social History: Denies: smoking Immunizations: other Reviewed Nursing Documentation: PMH: Agreed Nursing Documentation-PMH Past Medical History: No History, Except For Hx Cardiac Problems: Yes - afib, CHF, gout Hx Hypertension: Yes Hx Pacemaker: No - retina detachment in the rigth eye Hx Asthma: No Hx COPD: No Hx Diabetes: No Hx Cancer: No Hx Gastrointestinal Problems: No Hx Dialysis: No Hx Neurological Problems: No Hx Cerebrovascular Accident: No Hx Seizures: No Review of Systems Eye: Denies: eye pain, blurred vision ENT: Denies: ear pain, nose congestion, throat swelling Respiratory: Denies: cough, shortness of breath Cardiovascular: Denies: chest pain, palpitations Gastrointestinal: Denies: abdominal pain, diarrhea, nausea, vomiting Musculoskeletal: Reports: joint pain; Denies: back pain Skin: Denies: rash Neurological: Denies: headache, numbness Endocrine: Denies: increased thirst, increased urine Hematologic/Lymphatic: Denies: easy bruising All Other Systems: negative except mentioned in HPI Physical Exam Vital Signs Date Time Temp Pulse Resp B/P (MAP) Pulse Ox O2 Delivery O2 Flow Rate FiO2 06/26/20 22:46 97.5 80 18 140/96 (111) 96 Room Air Vitals unremarkable Sp02 EP Interpretation: reviewed, normal General Appearance: well appearing, no apparent distress, alert Head: normocephalic, atraumatic Eyes: bilateral eye PERRL, bilateral eye EOMI ENT: hearing grossly normal, normal pharynx Neck: full range of motion, supple, no meningismus Respiratory: chest non-tender, lungs clear, normal breath sounds Cardiovascular #1: regular rate, rhythm, no murmur Gastrointestinal: normal bowel sounds, non tender, no mass, no organomegaly, no bruit, non-distended Musculoskeletal: back normal, normal range of motion, gait/station normal Psychiatric: mood/affect normal Medical Decision Making Diagnostic Impression: Primary Impression: Chronic knee pain Qualified Codes: M25.561 - Pain in right knee; M25.562 - Pain in left knee; G89.29 - Other chronic pain ER Course This patient presents with chronic joint pain. Most likely arthritic in nature. No evidence of rapid A. fib or fluid overloaded. He is otherwise stable. He denies being homeless. Will discharge home. Last Vital Signs Date Time Temp Pulse Resp B/P (MAP) Pulse Ox O2 Delivery O2 Flow Rate FiO2 06/26/20 22:46 97.5 80 18 140/96 (111) 96 Room Air Status: unchanged Disposition: HOME, SELF-CARE Condition: Stable Scripts Acetaminophen* (ACETAMINOPHEN EXTRA STRENGTH*) 500 Mg Tablet 500 MG ORAL Q8H PRN for Fever/Headache/Mild Pain, #30 TAB Prov: Rajinder Coyle MD 06/26/20 Additional Instructions: Follow-up with your doctor in 7 days. Return if symptoms worsen. Rajinder Coyle MD Jun 26, 2020 23:59
[2020-06-27] VITALS: BP 122/72
--- NOTE | 2020-06-27 | NUR ---
ED Nurse Note: Patient walked into ED c/o chronic lower extremity pain, patient has made many visits here this month alone, reports of being discharged from [facility] a couple hours ago, reports of 10/10 leg pain, however is able to ambulate with no problems. patient is alert and oriented x4 ambulatory with a steady gait, VSS
[2020-06-27] MEDS ORDERED: ACETAMINOPHEN-1 EAC1 ORAL (19:21)
== END 2020-06-27 00:05 | disposition home or self-care (01) ==
LOC: EMR 06-27 00:04
DX: G89.29 Other chronic pain (principal); M25.562 Pain in left knee; M25.561 Pain in right knee; I48.91 Unspecified atrial fibrillation; I11.0 Hypertensive heart disease with heart failure; I50.9 Heart failure, unspecified; Z88.8 Allergy status to other drugs, medicaments and biological substances; Z91.09 Other allergy status, other than to drugs and biological substances
CPT/HCPCS: 99282

== ENCOUNTER 2020-06-27 18:50 | Emergency (ER) | payer MEDICARE, MEDICAID ==
[~2020-06-27] VITALS: Ht 177.8 cm; Wt 99.8 kg
--- NOTE | 2020-06-27 19:18 | NUR ---
ED Nurse Note: ambulated to ed c/o bilateral knee pain. seen recently at [facility] [place] [place] ed this am for same reason. patient ao4 with no acute distress. vitals stable. ambulatory with steady gait. all safety measures met.
[2020-06-27 19:19] VITALS: BP 158/111
--- NOTE | 2020-06-27 19:19 | Emergency Room Report ---
History of Present Illness General Chief Complaint: Pain Source: Patient Present Illness HPI Patient presents with increased in his knee pain at this time. He was recently discharged after 4-day hospitalization with a "removed the fluid from his legs". He was getting morphine in the hospital at [facility]. He was discharged with no pain medication. He was seen this morning here and given no medication. He sa ys he has no pain medication at home. He reports the pain 10/10 at this time. Denies any fevers or chills. Denies dyspnea on exertion orthopnea. He says the edema in his legs is improved. H/O atrial fibrillation, gout, CHF, glaucoma. No sore throat, chest pain, nausea, vomiting, diarrhea, dysuria, abdominal pain, shortness of breath, rashes, depression, anxiety, visual changes, dizziness, headache. Allergies: Coded Allergies: ALLOPURINOL (Unverified Allergy, Unknown, Hives, 03/01/20) patient states Allopurinol makes him itch. 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-19 Testing performed CARRIAGE RIDER: No Patient History Past Medical History: see triage record Social History: Denies: smoking Social History Narrative [place] Reviewed Nursing Documentation: PMH: Agreed; PSxH: Agreed Nursing Documentation-PMH Past Medical History: No History, Except For Hx Cardiac Problems: Yes - afib, CHF, gout Hx Hypertension: Yes Hx Pacemaker: No - retina detachment in the rigth eye Hx Asthma: No Hx COPD: No Hx Diabetes: No Hx Cancer: No Hx Gastrointestinal Problems: No Hx Dialysis: No Hx Neurological Problems: No Hx Cerebrovascular Accident: No Hx Seizures: No Review of Systems All Other Systems: negative except mentioned in HPI Physical Exam Vital Signs Date Time Temp Pulse Resp B/P (MAP) Pulse Ox O2 Delivery O2 Flow Rate FiO2 06/27/20 19:12 98.2 60 16 158/111 (127) 96 Room Air Sp02 EP Interpretation: reviewed, normal General Appearance: well appearing, no apparent distress, GCS 15 Head: normocephalic Eyes: right eye other - some opacity; bilateral eye EOMI ENT: other - wearing a mask Respiratory: lungs clear, normal breath sounds Cardiovascular #1: irregularly irregular - no tachycardia, edema - trace bilaterally Gastrointestinal: normal inspection Musculoskeletal: gait/station normal, normal range of motion Neurologic: alert, grossly normal Psychiatric: mood/affect normal - defensive about pain medication request Skin: no rash, other - fully dressed Medical Decision Making Diagnostic Impression: Primary Impression: Chronic knee pain Qualified Codes: M25.561 - Pain in right knee; M25.562 - Pain in left knee; G89.29 - Other chronic pain ER Course Patient presents with chronic knee pain. Ddx: gout, osteoarthritis, chronic pain amongst others. VS stable and no evidence of CHF or rapid a fib. Treated for pain. No medical emergency at this time. Patient stable for outpatient observation and treatment. Last Vital Signs Date Time Temp Pulse Resp B/P (MAP) Pulse Ox O2 Delivery O2 Flow Rate FiO2 06/27/20 19:30 98.2 60 16 158/111 96 Room Air Status: improved Disposition: HOME, SELF-CARE Condition: Improved Scripts Acetaminophen With Codeine (T#3) (TYLENOL #3 TAB*) Y Tab 1 TAB ORAL Q8H PRN for For Pain, #8 TAB Prov: Tim Gil MD 06/27/20 Referrals: Mariano Alaniz MD (PCP) Tim Gil MD Jun 27, 2020 19:19
[2020-06-27] MEDS ORDERED: ACETAMINOPHEN-1 EAC1 ORAL (19:21)
[2020-06-27 19:30] VITALS: BP 158/111
[2020-06-27] MEDS ORDERED: oxyCODONE HCL/Acetaminophen 5/325mg ORAL ONE (19:30)
== END 2020-06-27 19:30 | disposition home or self-care (01) ==
LOC: EMR 19:15
DX: G89.29 Other chronic pain (principal); M25.562 Pain in left knee; M25.561 Pain in right knee; I48.91 Unspecified atrial fibrillation; I11.0 Hypertensive heart disease with heart failure; I50.9 Heart failure, unspecified; Z91.09 Other allergy status, other than to drugs and biological substances; Z88.8 Allergy status to other drugs, medicaments and biological substances
CPT/HCPCS: 99282

== ENCOUNTER 2020-07-01 02:26 | Emergency (ER) | payer MEDICARE, MEDICAID ==
[~2020-07-01] VITALS: Ht 177.8 cm; Wt 97.5 kg
--- NOTE | 2020-07-01 02:49 | Emergency Room Report ---
History of Present Illness General Chief Complaint: Palpitations Source: Patient, Medical Record Present Illness HPI 9-year-old male with a history of atrial fibrillation and CHF. Also history of chronic pain. He is well-known to this ER and also to [facility]. He presents with complaint of palpitation. He said onset was 4 hours ago. He said his heart was beating irregular. No chest pain. No nausea no vomiting. Denies any other complaint. He has been to the ER multiple times for this. Also for chronic knee pain. Allergies: Coded Allergies: ALLOPURINOL (Unverified Allergy, Unknown, Hives, 03/01/20) patient states Allopurinol makes him itch. 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-19 Testing performed SLAG DUMPER: No Patient History Past Medical History: see triage record, old chart reviewed, HTN, CAD, CHF, AFib Past Surgical History: other Pertinent Family History: none Social History: Denies: smoking Immunizations: other Reviewed Nursing Documentation: PMH: Agreed; PSxH: Agreed Nursing Documentation-PMH Hx Cardiac Problems: Yes - afib, CHF, gout Hx Hypertension: Yes Hx Pacemaker: No - retina detachment in the rigth eye Hx Asthma: No Hx COPD: No Hx Diabetes: No Hx Cancer: No Hx Gastrointestinal Problems: No Hx Dialysis: No Hx Neurological Problems: No Hx Cerebrovascular Accident: No Hx Seizures: No Review of Systems Eye: Denies: eye pain, blurred vision ENT: Denies: ear pain, nose congestion, throat swelling Respiratory: Denies: cough, shortness of breath Cardiovascular: Reports: palpitations; Denies: chest pain Gastrointestinal: Denies: abdominal pain, diarrhea, nausea, vomiting Musculoskeletal: Denies: back pain, joint pain Skin: Denies: rash Neurological: Denies: headache, numbness Endocrine: Denies: increased thirst, increased urine Hematologic/Lymphatic: Denies: easy bruising All Other Systems: negative except mentioned in HPI Physical Exam Vital Signs Date Time Temp Pulse Resp B/P (MAP) Pulse Ox O2 Delivery O2 Flow Rate FiO2 07/01/20 02:31 98.8 100 16 159/93 (115) 96 Room Air Vitals with high blood pressure Sp02 EP Interpretation: reviewed, normal General Appearance: well appearing, no apparent distress, alert Head: normocephalic, atraumatic Eyes: bilateral eye PERRL, bilateral eye EOMI ENT: hearing grossly normal, normal pharynx Neck: full range of motion, supple, no meningismus Respiratory: chest non-tender, lungs clear, normal breath sounds Cardiovascular #1: no murmur, tachycardia, irregularly irregular Gastrointestinal: normal bowel sounds, non tender, no mass, no organomegaly, no bruit, non-distended Musculoskeletal: back normal, normal range of motion, gait/station normal, swelling - 1+ pitting edema Psychiatric: mood/affect normal Medical Decision Making Diagnostic Impression: Primary Impression: Atrial fibrillation with rapid ventricular response ER Course Patient presents with palpitation and has rapid A. fib. His rate is now controlled. His BNP is actually better from before. He diuresed well with Lasix. Will discharge home. EKG Diagnostic Results Rate: tachycardiac Rhythm: other - rapid afib ST Segments: other - Nonspecific ST changes ASA given to the pt in ED: Yes Rhythm Strip Diag. Results EP Interpretation: yes Rate: 56 Rhythm: no PVC's, no ectopy, other - afib Chest X-Ray Diagnostic Results Chest X-Ray Diagnostic Results : Chest X-Ray Ordered: Yes # of Views/Limited/Complete: 1 View Indication: Shortness of Breath EP Interpretation: Yes Interpretation: no consolidation, no effusion, no pneumothorax, other - CM Impression: No acute disease Electronically Signed by: Rajinder Coyle MD Last Vital Signs Date Time Temp Pulse Resp B/P (MAP) Pulse Ox O2 Delivery O2 Flow Rate FiO2 07/01/20 02:31 98.8 100 16 159/93 (115) 96 Room Air Status: improved Disposition: HOME, SELF-CARE Condition: Stable Additional Instructions: Take your medication. Follow-up with your doctor in 7 days. Return if worse. Rajinder Coyle MD Jul 01, 2020 02:49
--- NOTE | 2020-07-01 02:50 | NUR ---
ED Nurse Note: Recieved pt walk in from home, here with c/o edema, pt has hx of cardiac problems, takes oral elequis daily and states for past 3 days his lasix dose given by primary md has been increased but is not working, pt also c/o feeling his heart flutter, pt has hx of a-fib, denies chest pain or any pain, no sob or labored breathing noted, pt immediately gowned and placed on cardiac monitoring, noted with a-fib rhythm with rate of about 155, ekg immediately done and MD is at bedside, will resume care as ordered and continue to closely monitor.
[2020-07-01 03:00] VITALS: BP 169/105
[2020-07-01] MEDS ORDERED: Aspirin Baby 81mg ORAL ONE (03:00)
[2020-07-01] MEDS ORDERED: dilTIAZem HCl 25mg/5ml Inj IVP ONE (03:00)
[2020-07-01 03:06] LABS: BASOPHILS % (AUTO) 1.1 % (0.0-2.0); EOSINOPHILS % (AUTO) 2.6 % (0.0-3.0); HEMATOCRIT 43.9 % (42.0-52.0); HEMOGLOBIN 15.6 G/DL (14.2-18.0); LYMPHOCYTES % (AUTO) 28.2 % (20.0-45.0); MEAN CORPUSCULAR VOLUME 88 FL (80-99); MONOCYTES % (AUTO) 9.5 % (1.0-10.0); NEUTROPHILS % (AUTO) 58.6 % (45.0-75.0); PLATELET COUNT 180 K/UL (150-450); RED BLOOD COUNT 4.98 M/UL (4.70-6.10); RED CELL DISTRIBUTION WIDTH 14.7 % (11.6-14.8); WHITE BLOOD COUNT 7.3 K/UL (4.8-10.8)
[2020-07-01 03:20] LABS: CALCIUM 9.7 MG/DL (8.5-10.1); POTASSIUM 3.2 MMOL/L (3.5-5.1)
[2020-07-01 03:31] LABS: ALBUMIN 3.4 G/DL (3.4-5.0); BILIRUBIN,TOTAL 0.4 MG/DL (0.2-1.0)
--- NOTE | 2020-07-01 03:44 | Diagnostic Imaging Report ---
EXAM: XR Chest, 1 View CLINICAL HISTORY: SOB TECHNIQUE: Frontal view of the chest. COMPARISON: Chest radiograph May 31, 2020. FINDINGS/IMPRESSION: No focal consolidation, pleural effusion, or pneumothorax. Cardiomegaly. Tortuous aorta.
[2020-07-01 04:00] VITALS: BP 133/81
--- NOTE | 2020-07-01 04:00 | NUR ---
ED Nurse Note: Pt continues to rest in bed quietly, meds given effective, pt nos with heart rate of about 80's, remains in a-fib, no chest pain or labored breathing, pt used urinal x 2 with good output, IV site patent, pt denies any other complaints or discomforts, will continue to closely monitor while waiting for pt disposition.
[2020-07-01 04:30] VITALS: BP 119/74
[2020-07-01 04:40] VITALS: BP 133/81
== END 2020-07-01 04:40 | disposition home or self-care (01) ==
LOC: EMR 02:54
DX: I48.91 Unspecified atrial fibrillation (principal); I11.0 Hypertensive heart disease with heart failure; I50.9 Heart failure, unspecified; M10.9 Gout, unspecified; Z88.8 Allergy status to other drugs, medicaments and biological substances
CPT/HCPCS: 36415; 71045; 80053; 83880; 84484; 85025; 93005; 96374; 96375; 99284; J1940

== ENCOUNTER 2020-07-09 14:45 | Emergency (ER) | payer MEDICARE, MEDICAID ==
[~2020-07-09] VITALS: Ht 177.8 cm; Wt 103.0 kg
[2020-07-09 15:04] VITALS: BP 158/112
--- NOTE | 2020-07-09 15:14 | NUR ---
ED Nurse Note: Patient from home and walked in due to right shoulder pain. No reports of recent injury. AAO x4, ambulatory. complete ROM
[2020-07-09] MEDS ORDERED: Acetaminophen 500mg (ES) tab ORAL ONE (15:15)
--- NOTE | 2020-07-09 15:17 | Emergency Room Report ---
History of Present Illness General Chief Complaint: Pain Source: Medical Record Present Illness HPI 69-year-old male with history of chronic pain and lower extremity edema here complaining of bilateral lower leg pain without any new onset of fall or injury. Also complains of right shoulder pain without any injury. Primary doctor has given him a prescription to get MRI of the right shoulder done. Patient also has a prescription for Mobic as well as Voltaren gel. Patient has not yet taken that to the pharmacy. Advised patient needs to go to the imaging center for MRI of shoulder this is an outpatient procedure at this time. Patient agrees. Given Tylenol in ED. Patient has been here multiple times for similar complaints. Patient is neurovascularly intact. Allergies: Coded Allergies: ALLOPURINOL (Unverified Allergy, Unknown, Hives, 03/01/20) patient states Allopurinol makes him itch. 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-19 Testing performed BEAM SAW OPERATOR: No Patient History Past Medical History: see triage record Past Surgical History: none Pertinent Family History: none Reviewed Nursing Documentation: PMH: Agreed; PSxH: Agreed Nursing Documentation-PMH Past Medical History: No History, Except For Hx Cardiac Problems: Yes - afib, CHF, gout Hx Hypertension: Yes Hx Pacemaker: No - retina detachment in the rigth eye Hx Asthma: No Hx COPD: No Hx Diabetes: No Hx Cancer: No Hx Gastrointestinal Problems: No Hx Dialysis: No Hx Neurological Problems: No Hx Cerebrovascular Accident: No Hx Seizures: No Review of Systems All Other Systems: negative except mentioned in HPI Physical Exam Vital Signs Date Time Temp Pulse Resp B/P (MAP) Pulse Ox O2 Delivery O2 Flow Rate FiO2 07/09/20 15:04 97.9 69 16 158/112 (127) 99 Room Air Sp02 EP Interpretation: reviewed, normal General Appearance: no apparent distress, alert, GCS 15, non-toxic Head: normocephalic, atraumatic Eyes: bilateral eye normal inspection, bilateral eye PERRL ENT: hearing grossly normal, normal pharynx, no angioedema, normal voice Neck: full range of motion, supple/symm/no masses Respiratory: no rhonchi Cardiovascular #1: no edema Cardiovascular #2: 2+ carotid (R), 2+ carotid (L), 2+ radial (R), 2+ radial (L), 2+ dorsalis pedis (R), 2+ dorsalis pedis (L) Gastrointestinal: soft Genitourinary: no CVA tenderness Musculoskeletal: back normal, other - No impingement sign noted Neurologic: alert, motor strength/tone normal, oriented x3, sensory intact, responsive, speech normal Psychiatric: judgement/insight normal, memory normal, mood/affect normal, no suicidal/homicidal ideation Skin: no rash Lymphatic: no adenopathy Medical Decision Making PA Attestation All my diagnosis and treatment plans were reviewed ad discussed with my supervising physician Dr. Galeano Diagnostic Impression: Primary Impression: Shoulder strain ER Course 69-year-old male with history of chronic pain and lower extremity edema here complaining of bilateral lower leg pain without any new onset of fall or injury. Also complains of right shoulder pain without any injury. Primary doctor has given him a prescription to get MRI of the right shoulder done. Patient also has a prescription for Mobic as well as Voltaren gel. Patient has not yet taken that to the pharmacy. Advised patient needs to go to the imaging center for MRI of shoulder this is an outpatient procedure at this time. Patient agrees. Given Tylenol in ED. Patient has been here multiple times for similar complaints. Patient is neurovascularly intact. Ddx considered but are not limited to : Shoulder sprain versus strain versus fracture Vital signs: are WNL, pt. is afebrile H&PE are most consistent with: Shoulder strain, chronic. ORDERS: Advised patient to take the prescription for Mobic and Voltaren gel written to him by primary doctor to pharmacy, advised outpatient MRI of right shoulder ED INTERVENTIONS: Tylenol DISCHARGE: At this time pt. is stable for d/c to home. Will provide printed patient care instructions, and any necessary prescriptions. Care plan and follow up instructions have been discussed with the patient prior to discharge. Last Vital Signs Date Time Temp Pulse Resp B/P (MAP) Pulse Ox O2 Delivery O2 Flow Rate FiO2 07/09/20 15:04 97.9 69 16 158/112 (127) 99 Room Air Disposition: HOME, SELF-CARE Condition: Stable Patient Instructions: Shoulder Sprain Bailee Rizvi Jul 09, 2020 15:17
[2020-07-09 15:42] VITALS: BP 147/95
== END 2020-07-09 16:00 | disposition home or self-care (01) ==
LOC: EMR 15:30
DX: S46.911A Strain of unspecified muscle, fascia and tendon at shoulder and upper arm level, right arm, initial encounter (principal); I10 Essential (primary) hypertension; I48.91 Unspecified atrial fibrillation; I50.9 Heart failure, unspecified; M10.9 Gout, unspecified; X58.XXXA Exposure to other specified factors, initial encounter; Y93.9 Activity, unspecified; Y92.9 Unspecified place or not applicable; Z88.8 Allergy status to other drugs, medicaments and biological substances; Z91.09 Other allergy status, other than to drugs and biological substances
CPT/HCPCS: 99282

== ENCOUNTER 2020-07-10 21:02 | Emergency (ER) | payer MEDICARE, MEDICAID ==
[~2020-07-10] VITALS: Ht 177.8 cm; Wt 99.8 kg
--- NOTE | 2020-07-10 21:27 | NUR ---
ED Nurse Note: Mr Charles is ambulatory walks with a steady gait. Walked in from home. He is axox4. His vitals are stable on room air. He is complainin of right shoulder pain. he has good cap refil, strong pulses, no swelling noted, he has limited active range of motion he states is due to pain.
[2020-07-10 21:30] VITALS: BP 130/85
[2020-07-10] MEDS ORDERED: Ketorolac 60mg Inj IM ONE (22:00)
[2020-07-10] MEDS ORDERED: Diclofenac 1% Gel 100gm TOPIC ONE (22:00)
--- NOTE | 2020-07-10 22:04 | Emergency Room Report ---
History of Present Illness General Chief Complaint: Pain Source: Patient Present Illness HPI Patient is a 69-year-old male who presents for increased right-sided shoulder pain. Patient had prior history of gout as well as chronic pain issues. Reports having increased pain to the right shoulder with movement. Denies any change with respirations. No recent trauma. Patient had previous x-ray imaging of the shoulder approximately 2 months ago. Had multiple episodes of emergency department visits for pain primarily to his knees in the past. He had recent hospitalization at [facility] approximately 1 week ago. Denies any fever. Denies any cough. Denies feeling short of breath. Prior history of congestive heart failure and takes Eliquis. Allergies: Coded Allergies: ALLOPURINOL (Unverified Allergy, Unknown, Hives, 03/01/20) patient states Allopurinol makes him itch. 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-19 Testing performed BOWLING PIN SETTERS INSTALLER: No COVID-19 Screening: Negative COVID-19 COVID-19 Testing Source: [facility] Patient History Past Medical History: see triage record Reviewed Nursing Documentation: PMH: Agreed; PSxH: Agreed Nursing Documentation-PMH Hx Cardiac Problems: Yes - afib, CHF, gout Hx Hypertension: Yes Hx Pacemaker: No - retina detachment in the rigth eye Hx Asthma: No Hx COPD: No Hx Diabetes: No Hx Cancer: No Hx Gastrointestinal Problems: No Hx Dialysis: No Hx Neurological Problems: No Hx Cerebrovascular Accident: No Hx Seizures: No Review of Systems All Other Systems: negative except mentioned in HPI Physical Exam Vital Signs Date Time Temp Pulse Resp B/P (MAP) Pulse Ox O2 Delivery O2 Flow Rate FiO2 07/10/20 21:16 98.1 85 20 131/85 (100) 99 07/10/20 21:30 Room Air General Appearance: well appearing, no apparent distress, alert, GCS 15, non- toxic, Chronically Ill Head: normocephalic, atraumatic ENT: hearing grossly normal, normal voice Neck: full range of motion, supple Respiratory: lungs clear, no respiratory distress, speaking full sentences Cardiovascular #1: normal inspection, no edema Gastrointestinal: normal inspection, soft Musculoskeletal: normal inspection, no calf tenderness, moves extm spontaneously, decreased range of mation - Decreased ability to elevate the shoulder, normal bicep strength, normal hand coke loader strength, tenderness over the right pectoral area, no bicep tenderness Neurologic: alert, motor strength/tone normal, training facilitator III-XII nml as tested, normal gait, other - Slight disconjugate gaze which is the patient's baseline Psychiatric: normal inspection, mood/affect normal Skin: no rash Medical Decision Making Diagnostic Impression: Primary Impression: Injury of muscle of shoulder Additional Impression: Shoulder strain ER Course Patient presented for right-sided shoulder pain. Differential diagnosis include was not limited to fracture, contusion, dislocation, muscle injury among others. Patient previously seen his primary care physician and had been given referral for MRI. Patient is advised to have outpatient MRI process performed. Chest x- ray was ordered to patient's recent increase in what appears to be some musculoskeletal pain to rule out fracture. Patient given anti-inflammatory medication. Patient was advised to follow-up with his primary care physician for recheck. He was advised to return if worse. This medical record is generated with [employer] verifying specialist software. There may be some verifying specialist discrepancies related to use of this software Last Vital Signs Date Time Temp Pulse Resp B/P (MAP) Pulse Ox O2 Delivery O2 Flow Rate FiO2 07/10/20 21:30 98.2 89 20 130/85 99 Room Air Status: improved Disposition: HOME, SELF-CARE Condition: Stable Referrals: Mariano Alaniz MD (PCP) Fahad Castillo MD Jul 10, 2020 22:04
[2020-07-10 22:30] VITALS: BP 145/83
--- NOTE | 2020-07-11 02:40 | NUR ---
ER DISCHARGE NOTE: Patient is cleared to be discharged per ERMD, pt is aox4, on room air, with stable vital signs. pt was given dc instructions, pt was able to verbalize understanding, pt id band removed without complications. pt is able to ambulate with steady gait. pt took all belongings. Pt left in a private car
--- NOTE | 2020-07-11 14:40 | Diagnostic Imaging Report ---
Procedure: XRAY Chest 1v Reason for study: Chest pain Comparison films: 07/01/2020. FINDINGS: A single one view chest is obtained. Vascularity is normal. The lung garcia are clear bilaterally. Cardiac and mediastinal silhouette are within normal limits. CP angles are sharp. The aorta is tortuous. IMPRESSION: NO ACUTE CARDIOPULMONARY DISEASE.
== END 2020-07-10 22:30 | disposition home or self-care (01) ==
LOC: EMR 21:34
DX: S46.911A Strain of unspecified muscle, fascia and tendon at shoulder and upper arm level, right arm, initial encounter (principal); I48.91 Unspecified atrial fibrillation; I50.9 Heart failure, unspecified; I11.0 Hypertensive heart disease with heart failure; M10.9 Gout, unspecified; X58.XXXA Exposure to other specified factors, initial encounter; Y93.9 Activity, unspecified; Y92.9 Unspecified place or not applicable; Z88.8 Allergy status to other drugs, medicaments and biological substances; Z91.09 Other allergy status, other than to drugs and biological substances
CPT/HCPCS: 71045; 99283

== ENCOUNTER 2020-07-15 19:51 | Emergency (ER) | payer MEDICARE, MEDICAID ==
[~2020-07-15] VITALS: Ht 177.8 cm; Wt 118.8 kg
[2020-07-15 20:45] VITALS: BP 130/91
--- NOTE | 2020-07-15 20:47 | NUR ---
ED Nurse Note: pt walked into the ED due to left shoulder pain at 10/10 x 1 day . Denied injury and truma. Pt has no sob,fever,pain and cough.Pt is A&Ox4 and verbal. We will keep monitoring the pt.
[2020-07-15] MEDS ORDERED: Acetaminophen 500mg (ES) tab ORAL ONE (21:00)
--- NOTE | 2020-07-15 21:09 | Emergency Room Report ---
History of Present Illness General Chief Complaint: Pain Source: Patient Present Illness HPI 69-year-old male with history of chronic leg edema and pain and right shoulder pain who has been here multiple times for the same concern here complaining of shoulder with any fall or injury. Reports that this morning he got discharged from [facility] due to fluid overload in the legs and has discharge paper. Patient is here requesting some pain medication in house for right shoulder reports that has been primary doctor, Dr. Alaniz tomorrow for pain management. Patient is neurovascularly intact has range of motion of the affected side. Allergies: Coded Allergies: ALLOPURINOL (Unverified Allergy, Unknown, Hives, 03/01/20) patient states Allopurinol makes him itch. 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 - 07-13-2020 COVID-19 Screening: Negative COVID-19 COVID-19 Testing Source: nasal Patient History Past Medical History: see triage record Past Surgical History: none Pertinent Family History: none Immunizations: UTD Reviewed Nursing Documentation: PMH: Agreed; PSxH: Agreed Nursing Documentation-PMH Hx Cardiac Problems: Yes - afib, CHF, gout Hx Hypertension: Yes Hx Pacemaker: No - retina detachment in the rigth eye Hx Asthma: No Hx COPD: No Hx Diabetes: No Hx Cancer: No Hx Gastrointestinal Problems: No Hx Dialysis: No Hx Neurological Problems: No Hx Cerebrovascular Accident: No Hx Seizures: No Review of Systems All Other Systems: negative except mentioned in HPI Physical Exam Vital Signs Date Time Temp Pulse Resp B/P (MAP) Pulse Ox O2 Delivery O2 Flow Rate FiO2 07/15/20 20:38 98.1 82 16 130/91 (104) 97 Room Air Sp02 EP Interpretation: reviewed, normal General Appearance: no apparent distress, alert, GCS 15, non-toxic Head: normocephalic, atraumatic Eyes: bilateral eye normal inspection, bilateral eye PERRL ENT: hearing grossly normal, normal pharynx, no angioedema, normal voice Neck: full range of motion, supple/symm/no masses Respiratory: chest non-tender, lungs clear, normal breath sounds, no retraction, speaking full sentences Cardiovascular #1: regular rate, rhythm, no edema, no murmur Cardiovascular #2: 2+ radial (R), 2+ radial (L) Gastrointestinal: soft Genitourinary: no CVA tenderness Musculoskeletal: back normal, gait/station normal, non-tender, other - No impingement sign Neurologic: alert, motor strength/tone normal, oriented x3, sensory intact, responsive, speech normal Psychiatric: judgement/insight normal, memory normal, mood/affect normal, no suicidal/homicidal ideation Skin: no rash Lymphatic: no adenopathy Medical Decision Making PA Attestation All diagnosis and treatment plans were discussed and reviewed by my supervising physician Dr. Patel Diagnostic Impression: Primary Impression: Chronic leg pain Additional Impression: Shoulder pain ER Course 69-year-old male with history of chronic leg edema and pain and right shoulder pain who has been here multiple times for the same concern here complaining of shoulder with any fall or injury. Reports that this morning he got discharged from [facility] due to fluid overload in the legs and has discharge paper. Patient is here requesting some pain medication in house for right shoulder reports that has been primary doctor, Dr. Alaniz tomorrow for pain management. Patient is neurovascularly intact has range of motion of the affected side. Ddx considered but are not limited to :right shoulder sprain, right shoulder strain, rotator cuff tear, Vital signs: are WNL, pt. is afebrile H&PE are most consistent with: Chronic leg pain, right shoulder pain ORDERS: No imaging needed at this time patient has had imaging his right shoulder and there has been no new fall or injury. ED INTERVENTIONS: Tylenol DISCHARGE: At this time pt. is stable for d/c to home. Will provide printed patient care instructions, and any necessary prescriptions. Care plan and follow up instructions have been discussed with the patient prior to discharge. Patient reported MRI of the shoulder was done and had degenerative changes, patient to follow primary doctor [employer] specialist pain management, worsening symptoms return to the emergency room Last Vital Signs Date Time Temp Pulse Resp B/P (MAP) Pulse Ox O2 Delivery O2 Flow Rate FiO2 07/15/20 20:45 98.1 16 130/91 97 Room Air 07/15/20 20:38 82 Disposition: HOME, SELF-CARE Condition: Stable Referrals: Mariano Alaniz MD (PCP) Patient Instructions: Shoulder Pain, [id number] Bailee Rizvi Jul 15, 2020 21:09
[2020-07-15 21:12] VITALS: BP 129/69
--- NOTE | 2020-07-15 21:12 | NUR ---
ER DISCHARGE NOTE: Patient is cleared to be discharged per ERMD, pt is aox4, on room air, with stable vital signs. pt was given dcinstructions, pt was able to verbalize understanding, pt id band removed without complications. pt is able to ambulate with steady gait. pt took all belongings.
== END 2020-07-15 21:12 | disposition home or self-care (01) ==
LOC: EMR 20:05
DX: M79.606 Pain in leg, unspecified (principal); M25.511 Pain in right shoulder; G89.29 Other chronic pain; Z79.899 Other long term (current) drug therapy; I48.91 Unspecified atrial fibrillation; M10.9 Gout, unspecified; I50.9 Heart failure, unspecified; I11.0 Hypertensive heart disease with heart failure
CPT/HCPCS: 99282

== ENCOUNTER 2020-07-19 21:14 | Emergency (ER) | payer MEDICARE, MEDICAID ==
[~2020-07-19] VITALS: Ht 167.6 cm; Wt 90.7 kg
--- NOTE | 2020-07-19 21:22 | NUR ---
ED Nurse Note: Pt walked into ED from home c/o generalized joint pain. Pt is AAOx4, breathing even and unlabored. VSS.
[2020-07-19 21:24] VITALS: BP 150/76
[2020-07-19] MEDS ORDERED: Ketorolac 30mg Inj ONE (21:27)
[2020-07-19] MEDS ORDERED: Ketorolac 30mg Inj IM ONE (21:30)
--- NOTE | 2020-07-19 21:30 | Emergency Room Report ---
History of Present Illness General Chief Complaint: Pain Source: Patient Present Illness HPI Disclaimer: Please note that this report is being documented using DRAGON technology. This can lead to erroneous entry secondary to incorrect interpretation by the dictating instrument. HPI: 69-year-old male history of arthritis, gout, CHF, atrial fibrillation on Eliquis. Presents for evaluation of bilateral knee pain. This is a chronic issue and there is no new injury. Able to ambulate without difficulty. States he needs a shot of Toradol. Recently discharged procedures after CHF exacerbation. States he is diuresing well denies new swelling. Denies fever or chills. No skin breakdown noted. PMH: CHF, gout, atrial fibrillation PSH: Reviewed Allergies: Reviewed Social Hx: Reviewed Allergies: Coded Allergies: ALLOPURINOL (Unverified Allergy, Unknown, Hives, 03/01/20) patient states Allopurinol makes him itch. 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-19 Testing performed LEGAL SUPPORT ANALYST: No Nursing Documentation-PMH Hx Cardiac Problems: Yes - afib, CHF, gout Hx Hypertension: Yes Hx Pacemaker: No - retina detachment in the rigth eye Hx Asthma: No Hx COPD: No Hx Diabetes: No Hx Cancer: No Hx Gastrointestinal Problems: No Hx Dialysis: No Hx Neurological Problems: No Hx Cerebrovascular Accident: No Hx Seizures: No Review of Systems All Other Systems: negative except mentioned in HPI Physical Exam Vital Signs Date Time Temp Pulse Resp B/P (MAP) Pulse Ox O2 Delivery O2 Flow Rate FiO2 07/19/20 21:17 50 16 156/66 (96) 97 Room Air 07/19/20 21:24 98.8 General: Awake and alert, no acute distress HEENT: NC/AT. EOMI. Resp: Normal work of breathing Skin: Intact. No abrasions, laceration or rash over the exposed skin MSK: Normal tone and bulk. Moving all extremities. No obvious deformity. Patella is in anatomic position. Full range of motion in both knees bilaterally. No deformity. No effusions Neuro: Awake and alert. Mentating appropriately Medical Decision Making Diagnostic Impression: Primary Impression: Bilateral knee pain ER Course 69-year-old male well-known to the ED presents for evaluation of bilateral atraumatic knee pain. Consistent with chronic pain arthritis. Patient given IM Toradol. No evidence of acute trauma or infection. Stable for outpatient follow-up with his PMD. May return with new or worsening symptoms. Last Vital Signs Date Time Temp Pulse Resp B/P (MAP) Pulse Ox O2 Delivery O2 Flow Rate FiO2 07/19/20 21:24 98.8 69 16 150/76 97 Room Air Disposition: HOME, SELF-CARE Condition: Stable Additional Instructions: Please follow-up with your primary care doctor in the next 1 to 3 days to discuss this emergency department visit and for reevaluation. If you have any new or worsening symptoms please return to the emergency department for reevaluation. Please note that this report is being documented using WeavedON technology. This can lead to erroneous entry secondary to incorrect interpretation by the dictating instrument. Sebastian Payton MD Jul 19, 2020 21:30
[2020-07-19 22:00] VITALS: BP 146/75
== END 2020-07-19 22:00 | disposition home or self-care (01) ==
LOC: EMR 21:20
DX: M25.562 Pain in left knee (principal); M25.561 Pain in right knee; M19.90 Unspecified osteoarthritis, unspecified site; I48.91 Unspecified atrial fibrillation; I10 Essential (primary) hypertension; Z88.8 Allergy status to other drugs, medicaments and biological substances; Z91.09 Other allergy status, other than to drugs and biological substances; Z79.01 Long term (current) use of anticoagulants
CPT/HCPCS: 96372; 99283; J1885

== ENCOUNTER 2020-07-21 10:36 | Emergency (ER) | payer MEDICARE, MEDICAID ==
[~2020-07-21] VITALS: Ht 177.8 cm; Wt 97.5 kg
--- NOTE | 2020-07-21 10:46 | NUR ---
ED Nurse Note: pt presents to ED c/o bilat shoulder and knee px X 1 month, pt has chronic pain from gout, believes this is a flare up. pt denies trauma or injury to the affected areas
[2020-07-21 10:47] VITALS: BP 167/93
[2020-07-21] MEDS ORDERED: Diclofenac 1% Gel 100gm TOPIC STA (11:02)
--- NOTE | 2020-07-21 11:04 | Emergency Room Report ---
History of Present Illness General Chief Complaint: Pain Source: Patient, Medical Record Present Illness HPI Patient presents with increased bilateral [place] right shoulder pain. He states this is osteoarthritis. He has a history of gout. He has been seen by his doctor but no pain medications have been prescribed. He has difficulty raising his right hand over his shoulder area. In addition he has bilateral knee pain. This is chronic. He does have chronic edema of his lower extremities and this is somewhat improved. He has been taking diuretics. The patient denies fevers or chills. The patient rates the pain 10/10 mainly in his right shoulder. It is aching and constant but worse when he tries to use his right hand. The patient was seen here July 19 and received a shot of Toradol. The patient also has a history of atrial fibrillation. He denies chest pain or shortness of breath. He does occasionally feel palpitations but not at this time. He does take Eliquis. He has no dyspnea on exertion or orthopnea. Patient denies exposure to Covid positive contacts. No sore throat, chest pain, nausea, vomiting, diarrhea, dysuria, abdominal pain, depression, anxiety, dizziness, headache. Patient has had retinal detachment and has decreased vision. Allergies: Coded Allergies: ALLOPURINOL (Unverified Allergy, Unknown, Hives, 03/01/20) patient states Allopurinol makes him itch. 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: No Patient History Past Medical History: see triage record, old chart reviewed Social History: Denies: smoking Social History Narrative Works various jobs Reviewed Nursing Documentation: PMH: Agreed; PSxH: Agreed Nursing Documentation-PMH Past Medical History: No History, Except For Hx Cardiac Problems: Yes - afib, CHF, gout Hx Hypertension: Yes Hx Pacemaker: No - retina detachment in the rigth eye Hx Asthma: No Hx COPD: No Hx Diabetes: No Hx Cancer: No Hx Gastrointestinal Problems: No Hx Dialysis: No Hx Neurological Problems: No Hx Cerebrovascular Accident: No Hx Seizures: No Review of Systems All Other Systems: negative except mentioned in HPI Physical Exam Vital Signs Date Time Temp Pulse Resp B/P (MAP) Pulse Ox O2 Delivery O2 Flow Rate FiO2 07/21/20 10:42 97.9 68 20 167/93 (117) 96 Room Air Sp02 EP Interpretation: reviewed, normal General Appearance: well appearing, no apparent distress, GCS 15 Head: normocephalic Eyes: bilateral eye normal inspection, bilateral eye PERRL ENT: other - Wearing a mask Neck: full range of motion, supple Respiratory: chest non-tender, lungs clear, normal breath sounds Cardiovascular #1: irregularly irregular, edema - Wearing compression stockings Cardiovascular #2: 2+ radial (R) Gastrointestinal: normal inspection Musculoskeletal: gait/station normal, tenderness - With passive range of motion of right arm abduction. No crepitance or deformity. Some tenderness in the left shoulder also. Bilateral knee tenderness but able to sit and stand without difficulty. Neurologic: alert, grossly normal Psychiatric: mood/affect normal Skin: no rash, warm/dry Medical Decision Making Diagnostic Impression: Primary Impression: Shoulder pain Qualified Codes: M25.511 - Pain in right shoulder; M25.512 - Pain in left shoulder Additional Impressions: Chronic knee pain Qualified Codes: M25.561 - Pain in right knee; M25.562 - Pain in left knee; G89.29 - Other chronic pain Atrial fibrillation Qualified Codes: I48.11 - Longstanding persistent atrial fibrillation Chronic renal insufficiency Qualified Codes: N18.32 - Chronic kidney disease, stage 3b ER Course The patient presents with increased pain in his shoulders and knees. Differential includes gout, exacerbation of chronic pain, osteoarthritis amongst others. In addition he is in atrial fibrillation. At this time he denies symptoms related to his atrial fibrillation. The patient is on Eliquis and we are limited in what medications can be prescribed. The patient is requesting relief from his chronic pain. Percocet is ordered. Recent labs reviewed. No apparent medical emergency at this time. Discussed with patient the need for follow-up with chronic pain specialist and his private doctor. Of note the patient is on Eliquis and has chronic renal failure and therefore Toradol is not advised to be administered to this patient. Patient stable for outpatient observation and treatment. Last Vital Signs Date Time Temp Pulse Resp B/P (MAP) Pulse Ox O2 Delivery O2 Flow Rate FiO2 07/21/20 11:50 98.3 73 16 145/90 99 Room Air Status: improved Disposition: HOME, SELF-CARE Condition: Improved Scripts Acetaminophen (Tylenol) 325 Mg Tablet 650 MG ORAL Q6H PRN for Prn Pain/Headache/Temp > 101, #20 TAB 0 Refills Prov: Tim Gil MD 07/21/20 Referrals: Mariano Alaniz MD (PCP) Tim Gil MD Jul 21, 2020 11:04
[2020-07-21] MEDS ORDERED: TYLENOL325 MG ORAL (11:05)
[2020-07-21] MEDS ORDERED: oxyCODONE HCL/Acetaminophen 5/325mg ORAL ONE (11:15)
[2020-07-21 11:50] VITALS: BP 145/90
== END 2020-07-21 11:50 | disposition home or self-care (01) ==
LOC: EMR 10:57
DX: M25.511 Pain in right shoulder (principal); M25.561 Pain in right knee; M25.562 Pain in left knee; G89.29 Other chronic pain; I48.11 Longstanding persistent atrial fibrillation; N18.32 Chronic kidney disease, stage 3b; I13.0 Hypertensive heart and chronic kidney disease with heart failure and stage 1 through stage 4 chronic kidney disease, or unspecified chronic kidney disease; I50.9 Heart failure, unspecified; M10.9 Gout, unspecified
CPT/HCPCS: 99282

== ENCOUNTER 2020-07-23 21:47 | Emergency (ER) | payer MEDICARE, MEDICAID ==
[~2020-07-23] VITALS: Ht 177.8 cm; Wt 95.3 kg
--- NOTE | 2020-07-23 22:22 | NUR ---
ED Nurse Note: Pt walked in from home, walks with a steady gait, axox4, vitals are stable on RA as documented. Pt is co of pain on both knees and his right shoulder. His breathing is even and unlabored, speaks in full sentances.
[2020-07-23 22:24] VITALS: BP 132/84
[2020-07-23] MEDS ORDERED: oxyCODONE HCL/Acetaminophen 5/325mg ORAL ONE (22:30)
[2020-07-23] MEDS ORDERED: ACETAMINOPHEN-1 EAC1 ORAL (22:31)
[2020-07-23] MEDS ORDERED: COLACE100 MG ORAL (22:32)
--- NOTE | 2020-07-23 22:39 | Emergency Room Report ---
History of Present Illness General Chief Complaint: Pain Source: Patient Present Illness HPI Patient is a 69-year-old male presents for increased knee pain for the past few hours. Patient had recently been discharged from [facility] after admission for CHF. Chronic longstanding history of arthritis and gout. Reports having worsening pain to the right shoulder as well as to the knees bilaterally. Denies any current swelling. He had been taking Lasix as well as anticoagulation with Eliquis. Denies any chest discomfort or shortness of breath currently. Reports being compliant with his diet. Allergies: Coded Allergies: ALLOPURINOL (Unverified Allergy, Unknown, Hives, 03/01/20) patient states Allopurinol makes him itch. 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-19 Testing performed HOSE OPERATOR: No COVID-19 Screening: Negative COVID-19 COVID-19 Testing Source: [facility] Patient History Past Medical History: see triage record Reviewed Nursing Documentation: PMH: Agreed; PSxH: Agreed Nursing Documentation-PMH Hx Cardiac Problems: Yes - afib, CHF, gout Hx Hypertension: Yes Hx Pacemaker: No - retina detachment in the rigth eye Hx Asthma: No Hx COPD: No Hx Diabetes: No Hx Cancer: No Hx Gastrointestinal Problems: No Hx Dialysis: No Hx Neurological Problems: No Hx Cerebrovascular Accident: No Hx Seizures: No Review of Systems All Other Systems: negative except mentioned in HPI Physical Exam Vital Signs Date Time Temp Pulse Resp B/P (MAP) Pulse Ox O2 Delivery O2 Flow Rate FiO2 07/23/20 22:12 98.1 90 20 134/85 (101) 98 Room Air General Appearance: well appearing, no apparent distress, alert, GCS 15, Chronically Ill Head: normocephalic, atraumatic ENT: hearing grossly normal, normal voice Neck: supple Respiratory: lungs clear, no respiratory distress, speaking full sentences Cardiovascular #1: normal inspection, no edema Gastrointestinal: normal inspection Musculoskeletal: normal inspection, normal range of motion, no calf tenderness, moves extm spontaneously, other - Decreased ability to abduct the right shoulder Neurologic: alert, motor strength/tone normal, chucking machine set up operator III-XII nml as tested, oriented x3, normal gait Psychiatric: mood/affect normal Skin: no rash Medical Decision Making Diagnostic Impression: Primary Impression: Arthritis pain ER Course Patient presented for shoulder pain. Differential diagnosis include was not limited to arthritis, rotator cuff tendinitis, muscle pain among others. patient has a benign exam and does not appear to require any imaging or laboratory testing at this time. Patient is presenting with what appears to be chronic pain exacerbation. He has had multiple ER visits for similar symptoms and has had previous MRI as well as plain film imaging of the shoulder in the past. There is not appear to be an exertional component this appears to be musculoskeletal in origin. No signs of septic joint. Patient was advised to follow-up with Dr. Alaniz for recheck. Is given prescription for short-term of pain medications. This medical record is generated with Xi3 career agent software. There may be some career agent discrepancies related to use of this software Last Vital Signs Date Time Temp Pulse Resp B/P (MAP) Pulse Ox O2 Delivery O2 Flow Rate FiO2 07/23/20 22:24 98.2 80 20 132/84 98 Room Air Status: improved Disposition: HOME, SELF-CARE Condition: Stable Scripts Docusate Sodium* (COLACE*) 100 Mg Capsule 100 MG ORAL TWICE A DAY, #30 CAP Prov: Fahad Castillo MD 07/23/20 Acetaminophen With Codeine (T#3) (TYLENOL #3 TAB*) Y Tab 1 TAB ORAL Q8H PRN for For Pain, #10 TAB Prov: Fahad Castillo MD 07/23/20 Patient Instructions: Arthritis, [id number] Additional Instructions: Follow up with Dr. Alaniz for recheck in 1-2 days. Return if worse. Fahad Castillo MD Jul 23, 2020 22:39
[2020-07-23 22:50] VITALS: BP 132/82
== END 2020-07-23 22:50 | disposition home or self-care (01) ==
LOC: EMR 22:15
DX: M19.90 Unspecified osteoarthritis, unspecified site (principal); M25.511 Pain in right shoulder; M25.562 Pain in left knee; M25.561 Pain in right knee; Z88.8 Allergy status to other drugs, medicaments and biological substances; Z79.01 Long term (current) use of anticoagulants; I11.0 Hypertensive heart disease with heart failure; I50.9 Heart failure, unspecified
CPT/HCPCS: 99282

== ENCOUNTER 2020-07-27 00:41 | Emergency (ER) | payer MEDICARE, MEDICAID ==
[~2020-07-27] VITALS: Ht 177.8 cm; Wt 97.5 kg
[~2020-07-27 00:41] MED LIST changes: +COLACE100 MG ORAL
[2020-07-27 00:55] VITALS: BP 130/99
--- NOTE | 2020-07-27 00:55 | NUR ---
ED Nurse Note: Recieved pt walk in from home, here with c/o mild rash to bilat inner arms, no skin breakdown noted, pt c/o itching, states has cream from PMD but its not working, pt deneis chest pain, sob, or any other complaitns or discomforts.
[2020-07-27] MEDS ORDERED: HYDROCORTISONE-30 GM TOPIC (00:58)
--- NOTE | 2020-07-27 00:59 | Emergency Room Report ---
History of Present Illness General Chief Complaint: Skin Rash/Abscess Source: Patient Present Illness HPI This is a 69-year-old male well-known to this ER and multiple other ERs around the area. He presents with chief complaint of rash to his upper extremities. This been ongoing for 2 months. He thinks is secondary to his Eliquis. Denies any fever chills but no nausea no vomiting. Nothing made it better. Scratching and hot water made it worse. He started on hydrocortisone but he said is not working. He has been here 7 times this month alone and never mentioned it before. No fever chills but no drainage. Allergies: Coded Allergies: ALLOPURINOL (Unverified Allergy, Unknown, Hives, 03/01/20) patient states Allopurinol makes him itch. 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 COVID-19 Screening: Negative COVID-19 COVID-19 Testing Source: [facility] Patient History Past Medical History: see triage record, old chart reviewed, HTN, CHF, AFib Past Surgical History: other Pertinent Family History: none Social History: Denies: smoking Immunizations: other Reviewed Nursing Documentation: PMH: Agreed; PSxH: Agreed Nursing Documentation-PMH Past Medical History: No History, Except For Hx Cardiac Problems: Yes - afib, CHF, gout Hx Hypertension: Yes Hx Pacemaker: No - retina detachment in the rigth eye Hx Asthma: No Hx COPD: No Hx Diabetes: No Hx Cancer: No Hx Gastrointestinal Problems: No Hx Dialysis: No Hx Neurological Problems: No Hx Cerebrovascular Accident: No Hx Seizures: No Review of Systems Eye: Denies: eye pain, blurred vision ENT: Denies: ear pain, nose congestion, throat swelling Respiratory: Denies: cough, shortness of breath Cardiovascular: Denies: chest pain, palpitations Gastrointestinal: Denies: abdominal pain, diarrhea, nausea, vomiting Musculoskeletal: Denies: back pain, joint pain Skin: Reports: rash Neurological: Denies: headache, numbness Endocrine: Denies: increased thirst, increased urine Hematologic/Lymphatic: Denies: easy bruising All Other Systems: negative except mentioned in HPI Physical Exam Vital Signs Date Time Temp Pulse Resp B/P (MAP) Pulse Ox O2 Delivery O2 Flow Rate FiO2 07/27/20 00:43 97.9 76 18 130/99 (109) 97 Room Air Vitals normal Sp02 EP Interpretation: reviewed, normal General Appearance: well appearing, no apparent distress, alert Head: normocephalic, atraumatic Eyes: bilateral eye PERRL, bilateral eye EOMI ENT: hearing grossly normal, normal pharynx Neck: full range of motion, supple, no meningismus Respiratory: chest non-tender, lungs clear, normal breath sounds Cardiovascular #1: regular rate, rhythm, no murmur Gastrointestinal: normal bowel sounds, non tender, no mass, no organomegaly, no bruit, non-distended Musculoskeletal: back normal, normal range of motion, gait/station normal, other - Bilateral upper extremity but mostly left antecubital area is a dry scaly rash. There is irritation from scratching. Psychiatric: mood/affect normal Medical Decision Making Diagnostic Impression: Primary Impression: Atopic dermatitis Qualified Codes: L20.89 - Other atopic dermatitis ER Course Patient with atopic dermatitis. No evidence of necrotizing fasciitis or infection. Will discharge home. Last Vital Signs Date Time Temp Pulse Resp B/P (MAP) Pulse Ox O2 Delivery O2 Flow Rate FiO2 07/27/20 00:43 97.9 76 18 130/99 (109) 97 Room Air Status: unchanged Disposition: HOME, SELF-CARE Condition: Stable Scripts Hydrocortisone/Aloe (Hydrocortisone/Aloe 1% Cream*) Y Cr 1 APPLIC TOPIC Q6H PRN for Itching, #30 GM Prov: Rajinder Coyle MD 07/27/20 Additional Instructions: Follow-up with your doctor in 1 to 2 weeks. You may need referral to see a legislative assistant. Return if symptoms worsen. Rajinder Coyle MD Jul 27, 2020 00:59
[2020-07-27 01:05] VITALS: BP 130/99
[2020-07-27] MEDS ORDERED: CEPHALEXIN500 MG ORAL (14:04)
[2020-07-27] MEDS ORDERED: TRIAMCINOLONE A15 G1 TP (14:04)
== END 2020-07-27 01:05 | disposition home or self-care (01) ==
LOC: EMR 00:55
DX: L20.89 Other atopic dermatitis (principal); I48.91 Unspecified atrial fibrillation; I11.0 Hypertensive heart disease with heart failure; I50.9 Heart failure, unspecified; Z79.01 Long term (current) use of anticoagulants; Z88.8 Allergy status to other drugs, medicaments and biological substances
CPT/HCPCS: 99282

== ENCOUNTER 2020-07-27 13:32 | Emergency (ER) | payer MEDICARE, MEDICAID ==
[~2020-07-27] VITALS: Ht 177.8 cm; Wt 97.5 kg
[~2020-07-27 13:32] MED LIST changes: +HYDROCORTISONE-30 GM TOPIC
--- NOTE | 2020-07-27 14:03 | Emergency Room Report ---
History of Present Illness General Chief Complaint: Skin Rash/Abscess Source: Patient Present Illness HPI 69-year-old male with history of chronic leg edema and pain as well as contact dermatitis was seen here yesterday for similar issue here complaining of worsening rash on both arms reports that usually antibiotics help. Denies any fall or injury. No signs of trauma noted. No cellulitis noted however patient requests antibiotic reports that usually what helps him. Was discharged with hydrocortisone cream last night. Also complains of generalized arthritic pain. Allergies: Coded Allergies: ALLOPURINOL (Unverified Allergy, Unknown, Hives, 03/01/20) patient states Allopurinol makes him itch. 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 Patient History Past Medical History: see triage record Past Surgical History: none Pertinent Family History: none Immunizations: UTD Reviewed Nursing Documentation: PMH: Agreed; PSxH: Agreed Nursing Documentation-PMH Past Medical History: No History, Except For Hx Cardiac Problems: Yes - afib, CHF, gout Hx Hypertension: Yes Hx Pacemaker: No - retina detachment in the rigth eye Hx Asthma: No Hx COPD: No Hx Diabetes: No Hx Cancer: No Hx Gastrointestinal Problems: No Hx Dialysis: No Hx Neurological Problems: No Hx Cerebrovascular Accident: No Hx Seizures: No Review of Systems All Other Systems: negative except mentioned in HPI Physical Exam Vital Signs Date Time Temp Pulse Resp B/P (MAP) Pulse Ox O2 Delivery O2 Flow Rate FiO2 07/27/20 13:38 97.9 60 20 163/109 (127) 100 Room Air Sp02 EP Interpretation: reviewed General Appearance: no apparent distress, alert, GCS 15, non-toxic Head: normocephalic, atraumatic Eyes: bilateral eye normal inspection, bilateral eye PERRL ENT: hearing grossly normal, normal pharynx, no angioedema, normal voice Neck: full range of motion, supple/symm/no masses Respiratory: chest non-tender, lungs clear, normal breath sounds, speaking full sentences Cardiovascular #1: regular rate, rhythm, no edema Gastrointestinal: normal bowel sounds, non tender, soft, non-distended, no guarding, no rebound Musculoskeletal: back normal Neurologic: alert, motor strength/tone normal, oriented x3, sensory intact, responsive, speech normal Psychiatric: judgement/insight normal, memory normal, mood/affect normal, no suicidal/homicidal ideation Skin: other - Contact dermatitis left forearm Lymphatic: no adenopathy Medical Decision Making PA Attestation All my diagnosis and treatment plans were reviewed ad discussed with my supervising physician Dr. Castillo Diagnostic Impression: Primary Impression: Contact dermatitis Additional Impressions: Cellulitis Arthritis ER Course 69-year-old male with history of chronic leg edema and pain as well as contact dermatitis was seen here yesterday for similar issue here complaining of worsening rash on both arms reports that usually antibiotics help. Denies any fall or injury. No signs of trauma noted. No cellulitis noted however patient requests antibiotic reports that usually what helps him. Was discharged with hydrocortisone cream last night. Also complains of generalized arthritic pain. Ddx considered but are not limited to: Eczema, scabies, lice, contact dermatitis, cellulitis Vital signs: are WNL, pt. is afebrile H&PE are most consistent with: Contact dermatitis, arthritis ORDERS: Triamcinolone cream, Keflex per patient's request only for short course and twice a day only, Tylenol ED INTERVENTIONS: 1 dose of p.o. prednisone, Tylenol DISCHARGE: At this time pt. is stable for d/c to home. Will provide printed patient care instructions, and any necessary prescriptions. Care plan and follow up instructions have been discussed with the patient prior to discharge. Patient take medication as directed, follow primary care provider, if worsening symptoms return to the emergency room Last Vital Signs Date Time Temp Pulse Resp B/P (MAP) Pulse Ox O2 Delivery O2 Flow Rate FiO2 07/27/20 13:38 97.9 60 20 163/109 (127) 100 Room Air Disposition: HOME, SELF-CARE Condition: Stable Scripts Triamcinolone Acetonide (Triamcinolone Acetonide 0.5% Cream*) 15 Gm Cream..g. 2 GM TP TID, #15 GM Prov: Bailee Rizvi 07/27/20 Cephalexin* (KEFLEX*) 500 Mg Capsule 500 MG ORAL EVERY 12 HOURS for 7 Days, #14 CAP 0 Refills Prov: Bailee Rizvi 07/27/20 Referrals: Mariano Alaniz MD (PCP) Patient Instructions: Arthritis, [id number], Cellulitis, [id number], Contact Dermatitis, [id number] Additional Instructions: Take medication as directed, follow-up with your primary care provider, worsening symptoms return to the emergency room Bailee Rizvi Jul 27, 2020 14:03
[2020-07-27] MEDS ORDERED: TRIAMCINOLONE A15 G1 TP (14:04)
[2020-07-27] MEDS ORDERED: CEPHALEXIN500 MG ORAL (14:04)
[2020-07-27 14:11] VITALS: BP 163/109
[2020-07-27 14:12] VITALS: BP 157/99
== END 2020-07-27 14:13 | disposition home or self-care (01) ==
LOC: EMR 13:53
DX: L25.9 Unspecified contact dermatitis, unspecified cause (principal); L03.114 Cellulitis of left upper limb; L03.113 Cellulitis of right upper limb; M19.90 Unspecified osteoarthritis, unspecified site; I48.91 Unspecified atrial fibrillation; I11.0 Hypertensive heart disease with heart failure; I50.9 Heart failure, unspecified; Z79.01 Long term (current) use of anticoagulants; Z88.8 Allergy status to other drugs, medicaments and biological substances
CPT/HCPCS: 99282; J7512

== ENCOUNTER 2020-08-01 13:10 | Emergency (ER) | payer MEDICARE, MEDICAID ==
[~2020-08-01] VITALS: Ht 177.8 cm; Wt 97.5 kg
[~2020-08-01 13:10] MED LIST changes: +CEPHALEXIN500 MG ORAL; +TRIAMCINOLONE A15 G1 TP
[2020-08-01] MEDS ORDERED: Ketorolac 30mg Inj IM ONE (14:30)
--- NOTE | 2020-08-01 14:34 | Emergency Room Report ---
History of Present Illness General Chief Complaint: Pain Source: Patient Present Illness HPI 69-year-old male presents to the emergency department complaining of 10 out of 10 severity bilateral knee and shoulder pain x3 days. Patient with history of arthritis, gout, chronic pain and, A. fib and chronic edema. Patient reports his symptoms are usually subsided after receiving Toradol. Patient reports he was just at the hospital recently and had basic labs performed and has good renal function. Patient presents with his paperwork. He denies fevers or chills. He denies warmth, erythema or suspicion of infection in any of his joints. He denies paresthesias. He denies chest pain, palpitations, dyspnea or productive cough. He denies trauma or fall. Allergies: Coded Allergies: ALLOPURINOL (Unverified Allergy, Unknown, Hives, 03/01/20) patient states Allopurinol makes him itch. 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-19 Testing performed ACTIONSCRIPT DEVELOPER: No Patient History Past Medical History: see triage record Past Surgical History: none Pertinent Family History: none Reviewed Nursing Documentation: PMH: Agreed; PSxH: Agreed Nursing Documentation-PMH Past Medical History: No History, Except For Hx Cardiac Problems: Yes - afib, CHF, gout Hx Hypertension: Yes Hx Pacemaker: No - retina detachment in the rigth eye Hx Asthma: No Hx COPD: No Hx Diabetes: No Hx Cancer: No Hx Gastrointestinal Problems: No Hx Dialysis: No Hx Neurological Problems: No Hx Cerebrovascular Accident: No Hx Seizures: No Review of Systems All Other Systems: negative except mentioned in HPI Physical Exam Vital Signs Date Time Temp Pulse Resp B/P (MAP) Pulse Ox O2 Delivery O2 Flow Rate FiO2 08/01/20 13:47 98.2 63 18 150/91 (110) 97 Room Air Sp02 EP Interpretation: reviewed, normal General Appearance: no apparent distress, alert, GCS 15, non-toxic Head: normocephalic, atraumatic Eyes: bilateral eye normal inspection, bilateral eye PERRL ENT: hearing grossly normal, normal voice Neck: full range of motion Respiratory: lungs clear, normal breath sounds, speaking full sentences Cardiovascular #1: regular rate, rhythm, no edema Gastrointestinal: soft Musculoskeletal: back normal, normal range of motion, gait/station normal, tender - TTP to bilateral knees, hands and shoulders, no obvious deformities, no erythema or warmth. Neurologic: alert, motor strength/tone normal, oriented x3, sensory intact, responsive, speech normal, grossly normal Psychiatric: judgement/insight normal Skin: no rash, normal color Medical Decision Making PA Attestation Dr. Payton is my supervising Physician whom patient management has been discussed with. Diagnostic Impression: Primary Impression: Chronic knee pain Qualified Codes: M25.561 - Pain in right knee; M25.562 - Pain in left knee; G89.29 - Other chronic pain Additional Impression: Shoulder pain Qualified Codes: M25.511 - Pain in right shoulder; M25.512 - Pain in left shoulder ER Course 69-year-old male presents to the emergency department complaining of 10 out of 10 severity bilateral knee and shoulder pain x3 days. Patient with history of arthritis, gout, chronic pain and, A. fib and chronic edema. Patient reports his symptoms are usually subsided after receiving Toradol. Patient reports he was just at the hospital recently and had basic labs performed and has good renal function. Patient presents with his paperwork. He denies fevers or chills. He denies warmth, erythema or suspicion of infection in any of his joints. He denies paresthesias. He denies chest pain, palpitations, dyspnea or productive cough. He denies trauma or fall. Ddx considered but are not limited to Fracture, dislocation, contusion, septic joint, sprain just name a few. Vital signs: are WNL, pt. is afebrile H&PE are most consistent with musculoskeletal injury will perform imaging to r/o fractures/dislocations. ORDERS: -Diagnosis is clinical does not require emergent imaging at this time ED INTERVENTIONS: -15 mg Toradol IM -I do not identify an emergent condition at this time. With current pres entation, pt. is stable for close outpatient follow up and conservative treatment. D/w pt. to return promptly to ED with worsening or new symptoms.- Pt. verbalizes' understanding and agreement with proposed treatment plan. DISCHARGE: At this time pt. is stable for d/c to home. Will provide printed patient care instructions, and any necessary prescriptions. Care plan and follow up instructions have been discussed with the patient prior to discharge. Last Vital Signs Date Time Temp Pulse Resp B/P (MAP) Pulse Ox O2 Delivery O2 Flow Rate FiO2 08/01/20 13:47 98.2 63 18 150/91 (110) 97 Room Air Status: improved Disposition: HOME, SELF-CARE Condition: Stable Referrals: Mariano Alaniz MD (PCP) Patient Instructions: Chronic Pain Additional Instructions: Take any previously prescribed medications as directed. Follow up with a Primary Care Provider in 3-5 days, even if your symptoms have resolved. Return sooner to ED if new symptoms occur, or current symptoms become worse. - Please note that this Emergency Department Report was dictated using [employer] manager technology software, occasionally this can lead to erroneous entry secondary to interpretation by the dictation equipment. Amy Salmon Aug 01, 2020 14:34
[2020-08-01 14:35] VITALS: BP 150/86
== END 2020-08-01 14:40 | disposition home or self-care (01) ==
LOC: EMR 13:38
DX: G89.29 Other chronic pain (principal); M25.561 Pain in right knee; M25.562 Pain in left knee; M25.511 Pain in right shoulder; M25.512 Pain in left shoulder; I48.91 Unspecified atrial fibrillation; I11.0 Hypertensive heart disease with heart failure; I50.9 Heart failure, unspecified; M10.9 Gout, unspecified; Z88.8 Allergy status to other drugs, medicaments and biological substances
CPT/HCPCS: 96372; 99283; J1885

== ENCOUNTER 2020-08-03 19:48 | Emergency (ER) | payer MEDICARE, MEDICAID ==
[~2020-08-03] VITALS: Ht 177.8 cm; Wt 97.5 kg
--- NOTE | 2020-08-03 20:00 | NUR ---
ED Nurse Note: Patient came to ED complaining of right shoulder pain 10/, reports pain is chronic hx of arthriitis and gout. Denies any numbness and tingling. Denies any trauma.
[2020-08-03] MEDS ORDERED: Ketorolac 30mg Inj IM ONE (20:15)
--- NOTE | 2020-08-03 20:30 | NUR ---
ER DISCHARGE NOTE: Patient is cleared to be discharged per ERMD, pt is aox4, on room air, with stable vital signs. pt was given dc nstructions, pt was able to verbalize understanding, pain is 3/10. pt is able to ambulate with steady gait. pt took all belongings.
[2020-08-03 20:50] VITALS: BP 118/90
--- NOTE | 2020-08-03 21:38 | Emergency Room Report ---
History of Present Illness General Chief Complaint: Pain Source: Patient Present Illness HPI Disclaimer: Please note that this report is being documented using [employer] technology. This can lead to erroneous entry secondary to incorrect interpretation by the dictating instrument. HPI: 69-year-old male history of arthritis, gout, CHF, atrial fibrillation on Eliquis. Presents for evaluation of right shoulder pain. There is a chronic issue for the patient. Denies new injury or trauma. Denies numbness or tingling. Still maintains good range of motion. He is following up for his PMD for this and changing his medication regimen. Has not yet gone to physical era or seen orthopedic surgeon. He is requesting a dose of Toradol. No other complaints from patient at this time. PMH: CHF, gout, atrial fibrillation PSH: Reviewed Allergies: Reviewed Social Hx: Reviewed Allergies: Coded Allergies: ALLOPURINOL (Unverified Allergy, Unknown, Hives, 03/01/20) patient states Allopurinol makes him itch. 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-19 Testing performed PATTERN FILER: No Nursing Documentation-PMH Hx Cardiac Problems: Yes - afib, CHF, gout Hx Hypertension: Yes Hx Pacemaker: No - retina detachment in the rigth eye Hx Asthma: No Hx COPD: No Hx Diabetes: No Hx Cancer: No Hx Gastrointestinal Problems: No Hx Dialysis: No Hx Neurological Problems: No Hx Cerebrovascular Accident: No Hx Seizures: No Review of Systems All Other Systems: negative except mentioned in HPI Physical Exam Vital Signs Date Time Temp Pulse Resp B/P (MAP) Pulse Ox O2 Delivery O2 Flow Rate FiO2 08/03/20 19:50 97.7 75 18 118/90 (99) 99 Room Air General: Awake and alert, no acute distress HEENT: NC/AT. EOMI. Resp: Normal work of breathing Skin: Intact. No abrasions, laceration or rash over the exposed skin MSK: Normal tone and bulk. Moving all extremities. No obvious deformity. Full range of motion in the right shoulder. No palpable deformity. Neuro: Awake and alert. Mentating appropriately Medical Decision Making Diagnostic Impression: Primary Impression: Shoulder pain ER Course 69-year-old male history of arthritis presents for evaluation of atraumatic right shoulder pain. This a chronic condition for the patient and a common reason for him to come to the ER. We will give him a shot of Toradol IM and discharged to follow-up with his PMD. I am again recommending follow-up with orthopedic surgery and physical therapy. Instructed him to return with new or worsening symptoms. Last Vital Signs Date Time Temp Pulse Resp B/P (MAP) Pulse Ox O2 Delivery O2 Flow Rate FiO2 08/03/20 20:50 97.7 18 118/90 99 Room Air 08/03/20 19:50 75 Disposition: HOME, SELF-CARE Condition: Stable Referrals: Mariano Alaniz MD (PCP) Patient Instructions: Joint Pain Additional Instructions: Please follow-up with your primary care doctor in the next 1 to 3 days to discuss this emergency department visit and for reevaluation. If you have any new or worsening symptoms please return to the emergency department for reevaluation. Please note that this report is being documented using [employer] technology. This can lead to erroneous entry secondary to incorrect interpretation by the dictating instrument. Sebastian Payton MD Aug 03, 2020 21:38
== END 2020-08-03 20:30 | disposition home or self-care (01) ==
LOC: EMR 20:17
DX: M25.511 Pain in right shoulder (principal); I48.91 Unspecified atrial fibrillation; I11.0 Hypertensive heart disease with heart failure; I50.9 Heart failure, unspecified; Z88.8 Allergy status to other drugs, medicaments and biological substances; Z79.01 Long term (current) use of anticoagulants
CPT/HCPCS: 96372; 99283; J1885

== ENCOUNTER 2020-08-04 19:52 | Emergency (ER) | payer MEDICARE, MEDICAID ==
[~2020-08-04] VITALS: Ht 177.8 cm; Wt 97.5 kg
[2020-08-04 20:11] VITALS: BP 151/122
--- NOTE | 2020-08-04 20:20 | Emergency Room Report ---
History of Present Illness General Chief Complaint: Pain Source: Patient, Medical Record Present Illness HPI Disclaimer: Please note that this report is being documented using DRAGON technology. This can lead to erroneous entry secondary to incorrect interpretation by the dictating instrument. HPI: 69-year-old male history of arthritis, gout, CHF, atrial fibrillation on Eliquis. Presents for evaluation of right shoulder pain. There is a chronic issue for the patient and he was seen last night for similar complaints. Denies new injury or trauma. Denies numbness or tingling. Still maintains good range of motion. Patient typically presents to the ER a few times a week requesting Toradol shot for this complaint. No other complaints from patient at this time. PMH: CHF, gout, atrial fibrillation PSH: Reviewed Allergies: Reviewed Social Hx: Reviewed Allergies: Coded Allergies: ALLOPURINOL (Unverified Allergy, Unknown, Hives, 03/01/20) patient states Allopurinol makes him itch. 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-19 Testing performed PRESIDENT AND CHIEF OPERATING OFFICER: No Nursing Documentation-PMH Hx Cardiac Problems: Yes - afib, CHF, gout Hx Hypertension: Yes Hx Pacemaker: No - retina detachment in the rigth eye Hx Asthma: No Hx COPD: No Hx Diabetes: No Hx Cancer: No Hx Gastrointestinal Problems: No Hx Dialysis: No Hx Neurological Problems: No Hx Cerebrovascular Accident: No Hx Seizures: No Review of Systems All Other Systems: negative except mentioned in HPI Physical Exam Vital Signs Date Time Temp Pulse Resp B/P (MAP) Pulse Ox O2 Delivery O2 Flow Rate FiO2 08/04/20 20:11 98.1 90 18 151/122 (132) 98 Room Air General: Awake and alert, no acute distress HEENT: NC/AT. EOMI. Resp: Normal work of breathing Skin: Intact. No abrasions, laceration or rash over the exposed skin MSK: Normal tone and bulk. Moving all extremities. No obvious deformity. No tenderness. Good range of motion. Neuro: Awake and alert. Mentating appropriately Medical Decision Making ER Course 69-year-old male history of arthritis and gout presents for chronic right shoulder pain. No new injury. Does not require imaging. Patient was seen last night for similar and is requesting Toradol shot. Again I told him to follow-up with physical therapy and orthopedic surgery. Stable for outpatient follow-up. Last Vital Signs Date Time Temp Pulse Resp B/P (MAP) Pulse Ox O2 Delivery O2 Flow Rate FiO2 08/04/20 20:11 98.1 90 18 151/122 (132) 98 Room Air Disposition: HOME, SELF-CARE Condition: Stable Sebastian Payton MD Aug 04, 2020 20:20
[2020-08-04] MEDS ORDERED: Ketorolac 30mg Inj IM ONE (20:30)
--- NOTE | 2020-08-04 20:35 | NUR ---
ED Nurse Note: pt comes in c/o chronic left shoulder pain.
--- NOTE | 2020-08-04 20:36 | NUR ---
ER DISCHARGE NOTE: Patient is cleared to be discharged per ER MD, pt is aox4, on room air, with stable vital signs. pt was given dc and prescription instructions, pt was able to verbalize understanding, pt id band and iv site removed without complications. pt is able to ambulate with steady gait. pt took all belongings.
== END 2020-08-04 20:40 | disposition home or self-care (01) ==
LOC: EMR 20:27
DX: M25.511 Pain in right shoulder (principal); M10.9 Gout, unspecified; I48.91 Unspecified atrial fibrillation; I11.0 Hypertensive heart disease with heart failure; I50.9 Heart failure, unspecified; Z88.8 Allergy status to other drugs, medicaments and biological substances
CPT/HCPCS: 96372; 99283; J1885

== ENCOUNTER 2020-08-12 19:58 | Emergency (ER) | payer MEDICARE, MEDICAID ==
[~2020-08-12] VITALS: Ht 177.8 cm; Wt 97.5 kg
--- NOTE | 2020-08-12 21:00 | NUR ---
ED Nurse Note: Pt walked into the ED due to shoulder and knee pain since morning. Pt is AAOx4 and ambulatory. ERMD at bedside and seen pt.
[2020-08-12 22:15] VITALS: BP 136/72
[2020-08-12] MEDS ORDERED: Ketorolac 30mg Inj IM ONE (22:45)
--- NOTE | 2020-08-12 22:50 | Emergency Room Report ---
History of Present Illness General Chief Complaint: Pain Source: Patient Present Illness HPI Patient is a 69-year-old male well-known to our emergency room presents to the emergency room complaining of joint pain. Patient has a history of arthritis and gout in the past. He denies any trauma. He denies any fever or chills. Patient states that he would like a shot of Toradol to help with his pain. 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 COVID-19 Screening: Negative COVID-19 COVID-19 Testing Source: na Patient History Reviewed Nursing Documentation: PMH: Agreed; PSxH: Agreed Nursing Documentation-PMH Hx Cardiac Problems: Yes - afib, CHF, gout Hx Hypertension: Yes Hx Pacemaker: No - retina detachment in the rigth eye Hx Asthma: No Hx COPD: No Hx Diabetes: No Hx Cancer: No Hx Gastrointestinal Problems: No Hx Dialysis: No Hx Neurological Problems: No Hx Cerebrovascular Accident: No Hx Seizures: No Review of Systems All Other Systems: negative except mentioned in HPI Physical Exam Vital Signs Date Time Temp Pulse Resp B/P (MAP) Pulse Ox O2 Delivery O2 Flow Rate FiO2 08/12/20 20:43 97.9 82 18 136/72 (93) 98 Sp02 EP Interpretation: reviewed, normal General Appearance: no apparent distress, alert, GCS 15, non-toxic Head: normocephalic, atraumatic Eyes: bilateral eye normal inspection, bilateral eye PERRL ENT: hearing grossly normal, normal pharynx, no angioedema, normal voice Neck: full range of motion, supple/symm/no masses Respiratory: chest non-tender, lungs clear, normal breath sounds, speaking full sentences Cardiovascular #1: irregularly irregular Gastrointestinal: non tender, soft Genitourinary: no CVA tenderness Musculoskeletal: normal range of motion, no calf tenderness, other - Bilateral anterior knee tenderness to palpation no swelling or cellulitis Neurologic: night coordinator III-XII nml as tested, oriented x3 Psychiatric: no suicidal/homicidal ideation Skin: no rash Lymphatic: no adenopathy Medical Decision Making Diagnostic Impression: Primary Impression: Arthritis pain ER Course Patient given Toradol with good pain relief. After discussing risks and benefits of further diagnostics, treatment plans, as well as indications for and risks of admission, the patient is agreeable to being discharged home. I have explained that their evaluation and treatment in the emergency department today is an important step towards them achieving better health but that their evaluation today is not intended to replace further evaluation and treatment by a physician in their local clinic. I have explained that while the current findings suggest no immediate life threatening emergency they will require further evaluation and treatment by a physician of their choice in their area. They understand that it will be necessary for them to review the final reports of their ED visit with their clinic physician. We have reviewed indications for return to the Emergency Department. I have explained that additional time may need to pass and/or additional testing as an outpatient may be necessary before a definitive diagnosis can be made. They tell me they are willing to follow up as instructed within the timeframe I recommend. They appear to understand what we discussed. Additionally they understand that if they are unable to be seen by an outpatient physician they are welcome, and in fact should, return to the Emergency Department for a repeat evaluation. The patient is stable at time of discharge. Last Vital Signs Date Time Temp Pulse Resp B/P (MAP) Pulse Ox O2 Delivery O2 Flow Rate FiO2 08/12/20 20:43 97.9 82 18 136/72 (93) 98 Disposition: HOME, SELF-CARE Condition: Stable Referrals: Mariano Alaniz MD (PCP) Patient Instructions: Arthritis Additional Instructions: The patient was provided with discharge instructions, notified to follow-up with a primary care doctor and or specialist in the next 24-48 hours, and to return to the ED if they have worsening of their symptoms. Please note that this report is being documented using [employer] technology. This can lead to erroneous entry secondary to incorrect interpretation by the dictating instrument. Lolis Cano M.D. Aug 12, 2020 22:50
== END 2020-08-12 22:15 | disposition home or self-care (01) ==
LOC: EMR 21:00
DX: M19.90 Unspecified osteoarthritis, unspecified site (principal); I11.0 Hypertensive heart disease with heart failure; I50.9 Heart failure, unspecified
CPT/HCPCS: 96372; 99283; J1885

== ENCOUNTER 2020-08-15 06:00 | Emergency (ER) | payer MEDICARE, MEDICAID ==
[~2020-08-15] VITALS: Ht 167.6 cm; Wt 81.6 kg
--- NOTE | 2020-08-15 06:23 | NUR ---
ED Nurse Note: PT walked in from home, axox4, vitals are stable on RA, walks with a steady gait. Mr Charles is here for bilateral foot pain, there are palpable pulses, bilateral +2 pitting edema, less than 3 seconds cap refill. He states that his shoulder was hurting him, but now its his feet and lower legs that are causing it to be difficult for his to walk. He states trudy he has not been taking his lasix as perscribed "because I have more sense than that." He is hyper verbal on assesment.
[2020-08-15 06:30] VITALS: BP 117/98
--- NOTE | 2020-08-15 06:34 | Emergency Room Report ---
History of Present Illness General Chief Complaint: Pain Source: Patient Present Illness HPI Patient presents with bilateral foot pain. Is been going on for a few days. He was just discharged from [facility] this morning. They given him a shot of morphine to control his pain. It is bilateral in the first metatarsal phalangeal joint area. He denies any warmth, swelling or redness of the skin. Patient has a ketan g history of gout and osteoarthritis. Patient denies any fevers or chills. [facility] he had full lab work. His creatinine was 1.6 there. He rates the pain 10/10 with slight burning and aching. It does not radiate up into his legs. Patient was complaining about right shoulder pain after the [place]. He was treated for that also. He denies shoulder pain at this time. Patient states that he is getting conflicting information. According to his private doctor he needs to have valve surgery. At [facility] they contradicted this and stated that he did did not need surgery. Patient has a history of atrial fibrillation on Eliquis. In addition he has chronic edema. 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 Allergies: Coded Allergies: No Known Allergies (Unverified , 08/12/20) COVID-19 Screening Contact w/high risk pt: No Recent Travel to affected area: No Experienced COVID-19 symptoms?: No COVID-19 Testing performed LPC: No Patient History Past Medical History: see triage record Social History: Denies: smoking, alcohol use Social History Narrative Has been working various jobs. [place] Reviewed Nursing Documentation: PMH: Agreed; PSxH: Agreed Nursing Documentation-[facility] Past Medical History: No History, Except For Hx Cardiac Problems: Yes - afib, CHF, gout Hx Hypertension: Yes Hx Pacemaker: No - retina detachment in the rigth eye Hx Asthma: No Hx COPD: No Hx Diabetes: No Hx Cancer: No Hx Gastrointestinal Problems: No Hx Dialysis: No Hx Neurological Problems: No Hx Cerebrovascular Accident: No Hx Seizures: No Review of Systems Constitutional: Reports: see HPI Eye: Reports: see HPI Respiratory: Denies: shortness of breath Cardiovascular: Denies: chest pain Gastrointestinal: Denies: abdominal pain, diarrhea Musculoskeletal: Reports: see HPI Skin: Reports: see HPI Neurological: Denies: numbness Physical Exam Vital Signs Date Time Temp Pulse Resp B/P (MAP) Pulse Ox O2 Delivery O2 Flow Rate FiO2 08/15/20 06:10 98.1 75 18 116/80 (92) 100 Room Air Sp02 EP Interpretation: reviewed, normal General Appearance: well appearing, no apparent distress, GCS 15, non-toxic Head: normocephalic Eyes: bilateral eye normal inspection, bilateral eye PERRL ENT: moist mucus membranes Cardiovascular #1: regular rate, rhythm Gastrointestinal: normal inspection Musculoskeletal: gait/station normal, tenderness - Bilateral first metatarsal phalangeal joints. Neurologic: alert Skin: normal color, warm/dry, other - No erythema or warmth Medical Decision Making Diagnostic Impression: Primary Impression: Foot pain, bilateral ER Course Patient presents with bilateral first metatarsal phalangeal joint pain. Differential includes gout, osteoarthritis, sprain amongst others. Exam is against this being gout. We do not have colchicine available here at this time. The patient will be given 1 Percocet and also a shot of Toradol. The patient is advised to follow-up with his private physician today. No medical emergency. Patient stable for outpatient observation and treatment. Last Vital Signs Date Time Temp Pulse Resp B/P (MAP) Pulse Ox O2 Delivery O2 Flow Rate FiO2 08/15/20 06:47 98.3 76 16 116/65 98 Room Air Status: improved Disposition: HOME, SELF-CARE Condition: Improved Tim Gil MD Aug 15, 2020 06:33
[2020-08-15] MEDS ORDERED: Ketorolac 30mg Inj IM ONE (06:45)
[2020-08-15] MEDS ORDERED: oxyCODONE HCL/Acetaminophen 5/325mg ORAL ONE (06:45)
[2020-08-15 06:47] VITALS: BP 116/65
--- NOTE | 2020-08-15 06:52 | NUR ---
ER DISCHARGE NOTE: Patient is cleared to be discharged per ERMD, pt is aox4, on room air, with stable vital signs. pt was given dc and prescription instructions, pt was able to verbalize understanding, pt id band removed. pt is able to ambulate with steady gait. pt took all belongings. Pt left in a private car.
== END 2020-08-15 06:51 | disposition home or self-care (01) ==
LOC: EMR 06:34
DX: M79.672 Pain in left foot (principal); M79.671 Pain in right foot; I48.91 Unspecified atrial fibrillation; I11.0 Hypertensive heart disease with heart failure; I50.9 Heart failure, unspecified; H33.21 Serous retinal detachment, right eye; H54.61 Unqualified visual loss, right eye, normal vision left eye; M10.9 Gout, unspecified; Z79.01 Long term (current) use of anticoagulants
CPT/HCPCS: 96372; 99283; J1885

== ENCOUNTER 2020-08-17 08:05 | Emergency (ER) | payer MEDICARE, MEDICAID ==
[~2020-08-17] VITALS: Ht 177.8 cm; Wt 99.8 kg
--- NOTE | 2020-08-17 08:17 | NUR ---
ED Nurse Note: pt c/o bilateral knee and foot pain. pt stated he has a hx of gout. woke up Wednesday and could hardly walk.
[2020-08-17 08:18] VITALS: BP 150/97
[2020-08-17] MEDS ORDERED: Tylenol #3 tab (300mg/30mg) ORAL ONE (08:30)
[2020-08-17] MEDS ORDERED: ACETAMINOPHEN-1 EAC1 ORAL (08:31)
--- NOTE | 2020-08-17 08:50 | Emergency Room Report ---
History of Present Illness General Chief Complaint: Pain Source: Patient Present Illness HPI Patient is a 69-year-old male who presents for increased foot pain. Gradual onset of symptoms. Reports having increased welling to his lower extremities. Prior history of heart failure. Denies any shortness of breath. He reports being intermittently compliant with his Lasix. He had previously been told to take 120 mg of Lasix but states he has been taking lower amounts. Denies any recent trauma. Reports having increased pain to the plantar areas of his feet. Previous history of gout. Denies any difficulty with urination. Had been wearing compression stockings. Denies any other current complaints. 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 Patient History Past Medical History: see triage record Reviewed Nursing Documentation: PMH: Agreed; PSxH: Agreed Nursing Documentation-PMH Past Medical History: No History, Except For Hx Cardiac Problems: Yes - afib, CHF, gout Hx Hypertension: Yes Hx Pacemaker: No - retina detachment in the rigth eye Hx Asthma: No Hx COPD: No Hx Diabetes: No Hx Cancer: No Hx Gastrointestinal Problems: No Hx Dialysis: No Hx Neurological Problems: No Hx Cerebrovascular Accident: No Hx Seizures: No Review of Systems All Other Systems: negative except mentioned in HPI Physical Exam Vital Signs Date Time Temp Pulse Resp B/P (MAP) Pulse Ox O2 Delivery O2 Flow Rate FiO2 08/17/20 08:10 97.3 77 20 150/97 (114) 96 Room Air Sp02 EP Interpretation: reviewed, normal General Appearance: normal inspection, well appearing, no apparent distress, alert, GCS 15, Chronically Ill Head: atraumatic Eyes: bilateral eye other - Slight disconjugate gaze ENT: normal ENT inspection, hearing grossly normal, normal voice Neck: normal inspection, full range of motion, supple, no bony tend Respiratory: normal inspection, lungs clear, normal breath sounds, no respiratory distress, no retraction, no wheezing Cardiovascular #1: regular rate, rhythm, edema - 2+ edema Gastrointestinal: normal inspection, normal bowel sounds, non tender, soft, no guarding, no hernia Genitourinary: no CVA tenderness Musculoskeletal: normal inspection, back normal, normal range of motion Neurologic: alert, motor strength/tone normal, web analytics developer III-XII nml as tested, oriented x3, responsive, speech normal, normal inspection Psychiatric: normal inspection, judgement/insight normal, mood/affect normal Skin: no rash Medical Decision Making Diagnostic Impression: Primary Impression: Chronic gout Additional Impression: Arthritis pain ER Course Patient presented for foot pain. Differential diagnosis include was not limited to arthritis, fluid overload, dependent edema among others. Patient has a benign exam and does not appear to require any imaging or laboratory testing at this time. Patient was advised to monitor his weight daily. He was noted to have no evidence of acute respiratory distress and has a history of chronic gout as well as chronic arthritis pain. Patient does not appear to have any evidence of infection neurovascular compromise. Appears to be stable for outpatient management. He was given medications for pain. Was advised to follow-up with Dr. Alaniz. He was advised to return if worse. This medical record is generated with Se[employer] epilepsy physician software. There may be some epilepsy physician discrepancies related to use of this software Last Vital Signs Date Time Temp Pulse Resp B/P (MAP) Pulse Ox O2 Delivery O2 Flow Rate FiO2 08/17/20 08:18 97.3 20 150/97 96 Room Air 08/17/20 08:10 77 Status: improved Disposition: HOME, SELF-CARE Condition: Stable Scripts Acetaminophen With Codeine (T#3) (TYLENOL #3 TAB*) Y Tab 1 TAB ORAL Q8H PRN for For Pain, #12 TAB Prov: Fahad Castillo MD 08/17/20 Referrals: Mariano Alaniz MD (PCP) Patient Instructions: Arthritis, [id number] Additional Instructions: Follow up with doctor Corbin for recheck. Return if worses. Fahad Castillo MD Aug 17, 2020 08:50
== END 2020-08-17 08:44 | disposition home or self-care (01) ==
LOC: EMR 08:38
DX: M1A.9XX0 Chronic gout, unspecified, without tophus (tophi) (principal); M19.90 Unspecified osteoarthritis, unspecified site; R52 Pain, unspecified; I48.20 Chronic atrial fibrillation, unspecified; I11.0 Hypertensive heart disease with heart failure; I50.9 Heart failure, unspecified; Z79.01 Long term (current) use of anticoagulants
CPT/HCPCS: 99282

== ENCOUNTER 2020-08-18 21:37 | Emergency (ER) | payer MEDICARE, MEDICAID ==
[~2020-08-18] VITALS: Ht 177.8 cm; Wt 97.5 kg
[2020-08-18 21:46] VITALS: BP 122/84
--- NOTE | 2020-08-18 21:47 | NUR ---
ED Nurse Note: PAtient walked into ED c/o bilateral knee pain that started earlier this morning, rates his pain a 10/10 pain. reports of being recently seen at [facility] earlier this week and was tested for covid and was came back negative. patient is ambulatory however is slow to walk. patient placed in [facility], will wait for further orders
[2020-08-18] MEDS ORDERED: Ketorolac 30mg Inj ONE (21:51)
--- NOTE | 2020-08-18 21:53 | Emergency Room Report ---
History of Present Illness General Chief Complaint: Pain Source: Patient, Medical Record Present Illness HPI Mr. Charles is a 69-year-old male who is well-known to this ER and other hospital around the area. He has a history of A. fib and CHF. He also has history of chronic knee pain and arthritis. He presents with chief complaint of knee pain. He was just here yesterday for the same. He denies any fever or chills. No nausea no vomiting. Just want a shot of Toradol. Denies any chest pain or shortness of breath. Pain is 8 out of 10. Worse with walking. Better with rest. Allergies: Coded Allergies: No Known Allergies (Unverified , 08/12/20) COVID-19 Screening Contact w/high risk pt: No Recent Travel to affected area: No Experienced COVID-19 symptoms?: No COVID-19 Testing performed ASSEMBLER INSULATOR: Yes - 08/14/ COVID-19 Screening: Negative COVID-19 COVID-19 Testing Source: [facility] Patient History Past Medical History: see triage record, old chart reviewed, HTN, CHF, AFib Past Surgical History: other Pertinent Family History: none Social History: Denies: smoking Immunizations: other Reviewed Nursing Documentation: PMH: Agreed; PSxH: Agreed Nursing Documentation-PMH Past Medical History: No History, Except For Hx Cardiac Problems: Yes - afib, CHF, gout Hx Hypertension: Yes Hx Pacemaker: No - retina detachment in the rigth eye Hx Asthma: No Hx COPD: No Hx Diabetes: No Hx Cancer: No Hx Gastrointestinal Problems: No Hx Dialysis: No Hx Neurological Problems: No Hx Cerebrovascular Accident: No Hx Seizures: No Review of Systems Eye: Denies: eye pain, blurred vision ENT: Denies: ear pain, nose congestion, throat swelling Respiratory: Denies: cough, shortness of breath Cardiovascular: Denies: chest pain, palpitations Gastrointestinal: Denies: abdominal pain, diarrhea, nausea, vomiting Musculoskeletal: Reports: joint pain; Denies: back pain Skin: Denies: rash Neurological: Denies: headache, numbness Endocrine: Denies: increased thirst, increased urine Hematologic/Lymphatic: Denies: easy bruising All Other Systems: negative except mentioned in HPI Physical Exam Vital Signs Date Time Temp Pulse Resp B/P (MAP) Pulse Ox O2 Delivery O2 Flow Rate FiO2 08/18/20 21:39 97.3 72 16 122/84 (97) 99 Room Air Vitals normal Sp02 EP Interpretation: reviewed, normal General Appearance: well appearing, no apparent distress, alert Head: normocephalic, atraumatic Eyes: bilateral eye PERRL, bilateral eye EOMI ENT: hearing grossly normal, normal pharynx Neck: full range of motion, supple, no meningismus Respiratory: chest non-tender, lungs clear, normal breath sounds Cardiovascular #1: regular rate, rhythm, no murmur Gastrointestinal: normal bowel sounds, non tender, no mass, no organomegaly, no bruit, non-distended Musculoskeletal: back normal, normal range of motion, gait/station normal, swelling - 1-2 plus edema. He has stockings on. This is unchanged from before. Psychiatric: mood/affect normal Medical Decision Making Diagnostic Impression: Primary Impression: Arthritis pain Additional Impression: Bilateral knee pain Qualified Codes: M25.561 - Pain in right knee; M25.562 - Pain in left knee ER Course Patient presents with acute exacerbation of his chronic arthritic pain. He is not in any respiratory distress. Lungs are clear. His pedal edema is chronic in nature. Will discharge home. Last Vital Signs Date Time Temp Pulse Resp B/P (MAP) Pulse Ox O2 Delivery O2 Flow Rate FiO2 08/18/20 21:46 97.3 71 16 122/84 99 Room Air Status: improved Disposition: HOME, SELF-CARE Condition: Stable Additional Instructions: Follow-up with your doctor in 7 days. Return if symptoms worsen. Rajinder Coyle MD Aug 18, 2020 21:53
[2020-08-18 22:00] VITALS: BP 120/80
[2020-08-18] MEDS ORDERED: Ketorolac 30mg Inj IM ONE (22:00)
== END 2020-08-18 22:00 | disposition home or self-care (01) ==
LOC: EMR 21:54
DX: M25.561 Pain in right knee (principal); M25.562 Pain in left knee; M19.90 Unspecified osteoarthritis, unspecified site; I11.0 Hypertensive heart disease with heart failure; I50.9 Heart failure, unspecified
CPT/HCPCS: 96372; 99283; J1885

== ENCOUNTER 2020-08-20 16:48 | Emergency (ER) | payer MEDICARE, MEDICAID ==
[~2020-08-20] VITALS: Ht 177.8 cm; Wt 99.8 kg
--- NOTE | 2020-08-20 17:06 | Emergency Room Report ---
History of Present Illness General Chief Complaint: Pain Source: Patient Present Illness HPI Disclaimer: Please note that this report is being documented using [employer] technology. This can lead to erroneous entry secondary to incorrect interpretation by the dictating instrument. HPI: 69-year-old male history of chronic pain presents for pain in his ankles and knees. Is a chronic issue. Typically treated with Toradol. He states he just left his PMD office and referred here for an IM shot of Toradol. No other complaints at this time. No injury reported. No swelling or redness. Compliant with his other medications. PMH: Atrial fibrillation, venous insufficiency, gout, arthritis, hypertension, CHF PSH: Reviewed Allergies: Allopurinol, diltiazem, certain adhesive Allergies: Coded Allergies: No Known Allergies (Unverified , 08/12/20) COVID-19 Screening Contact w/high risk pt: No Recent Travel to affected area: No Experienced COVID-19 symptoms?: No COVID-19 Testing performed IT SUPPORT ENGINEER: No Nursing Documentation-PMH Past Medical History: No History, Except For Hx Cardiac Problems: Yes - afib, CHF, gout Hx Hypertension: Yes Hx Pacemaker: No - retina detachment in the rigth eye Hx Asthma: No Hx COPD: No Hx Diabetes: No Hx Cancer: No Hx Gastrointestinal Problems: No Hx Dialysis: No Hx Neurological Problems: No Hx Cerebrovascular Accident: No Hx Seizures: No Review of Systems All Other Systems: negative except mentioned in HPI Physical Exam Vital Signs Date Time Temp Pulse Resp B/P (MAP) Pulse Ox O2 Delivery O2 Flow Rate FiO2 08/20/20 16:53 98.1 78 17 135/71 (92) 97 Room Air General: Awake and alert, no acute distress HEENT: NC/AT. EOMI. Resp: Normal work of breathing Skin: Intact. No abrasions, laceration or rash over the exposed skin MSK: Normal tone and bulk. Moving all extremities. No obvious deformity. Patella is in anatomic position. No swelling. No edema. No skin breakdown. No tenderness over the lateral or medial malleolus. No midfoot tenderness. No calf asymmetry. Neuro: Awake and alert. Mentating appropriately Medical Decision Making Diagnostic Impression: Primary Impression: Knee pain ER Course 69-year-old male well-known to the emergency department presents for pain in his knees and ankles. This a chronic issue. We will give him Toradol. Stable for outpatient follow-up with his PMD. Last Vital Signs Date Time Temp Pulse Resp B/P (MAP) Pulse Ox O2 Delivery O2 Flow Rate FiO2 08/20/20 16:53 98.1 78 17 135/71 (92) 97 Room Air Disposition: HOME, SELF-CARE Condition: Stable Additional Instructions: Please follow-up with your primary care doctor in the next 1 to 3 days to discuss this emergency department visit and for reevaluation. If you have any new or worsening symptoms please return to the emergency department for reevaluation. Please note that this report is being documented using [employer] technology. This can lead to erroneous entry secondary to incorrect interpretation by the dictating instrument. Sebastian Payton MD Aug 20, 2020 17:06
[2020-08-20 17:15] VITALS: BP 135/71
[2020-08-20] MEDS ORDERED: Ketorolac 30mg Inj IM ONE (17:15)
== END 2020-08-20 18:00 | disposition home or self-care (01) ==
LOC: EMR 17:05
DX: M25.562 Pain in left knee (principal); M25.561 Pain in right knee; M25.572 Pain in left ankle and joints of left foot; M25.571 Pain in right ankle and joints of right foot; I11.0 Hypertensive heart disease with heart failure; I50.9 Heart failure, unspecified; M19.90 Unspecified osteoarthritis, unspecified site; I10 Essential (primary) hypertension
CPT/HCPCS: 96372; 99283; J1885

== ENCOUNTER 2020-08-22 23:19 | Emergency (ER) | payer MEDICARE, MEDICAID ==
[~2020-08-22] VITALS: Ht 177.8 cm; Wt 99.8 kg
--- NOTE | 2020-08-22 23:46 | Emergency Room Report ---
History of Present Illness General Chief Complaint: To Be Triaged Source: Patient, Medical Record Present Illness HPI This is a 69-year-old male with a history of A. fib, chronic CHF and chronic knee pain. He presents with chief complaint of swelling and knee pain. Onset for the last week. He claimed that he was at Dr. Alaniz's office 2 days ago and was told to come in to get IV Lasix. He was just at [facility] and claimed that they want to do open heart surgery so he went to usually get a second opinion. I told that he was here 2 days ago and did not mention anything about getting IV Lasix from Dr. Alaniz's office. Patient denies any chest pain. No fever chills but no nausea no vomiting. Allergies: Coded Allergies: No Known Allergies (Unverified , 08/12/20) COVID-19 Screening Contact w/high risk pt: No Recent Travel to affected area: No Experienced COVID-19 symptoms?: No Patient History Past Medical History: see triage record, old chart reviewed, CHF, AFib Past Surgical History: other Pertinent Family History: none Social History: Denies: smoking Immunizations: other Reviewed Nursing Documentation: PMH: Agreed; PSxH: Agreed Nursing Documentation-PMH Hx Cardiac Problems: Yes - afib, CHF, gout Hx Hypertension: Yes Hx Pacemaker: No - retina detachment in the rigth eye Hx Asthma: No Hx COPD: No Hx Diabetes: No Hx Cancer: No Hx Gastrointestinal Problems: No Hx Dialysis: No Hx Neurological Problems: No Hx Cerebrovascular Accident: No Hx Seizures: No Review of Systems Eye: Denies: eye pain, blurred vision ENT: Denies: ear pain, nose congestion, throat swelling Respiratory: Denies: cough, shortness of breath Cardiovascular: Denies: chest pain, palpitations Gastrointestinal: Denies: abdominal pain, diarrhea, nausea, vomiting Musculoskeletal: Reports: joint pain; Denies: back pain Skin: Denies: rash Neurological: Denies: headache, numbness Endocrine: Denies: increased thirst, increased urine Hematologic/Lymphatic: Denies: easy bruising All Other Systems: negative except mentioned in HPI Physical Exam Sp02 EP Interpretation: reviewed, normal General Appearance: well appearing, no apparent distress, alert Head: normocephalic, atraumatic Eyes: bilateral eye PERRL, bilateral eye EOMI ENT: hearing grossly normal, normal pharynx Neck: full range of motion, supple, no meningismus Respiratory: chest non-tender, lungs clear, normal breath sounds Cardiovascular #1: regular rate, rhythm, no murmur Gastrointestinal: normal bowel sounds, non tender, no mass, no organomegaly, no bruit, non-distended Musculoskeletal: back normal, normal range of motion, gait/station normal, swelling - Bilateral lower extremity 1-2+ pitting edema. This is unchanged from before. Neurologic: alert, oriented x3 Psychiatric: mood/affect normal Medical Decision Making Diagnostic Impression: Primary Impression: Chronic knee pain Qualified Codes: M25.561 - Pain in right knee; M25.562 - Pain in left knee; G89.29 - Other chronic pain Additional Impression: Chronic CHF Qualified Codes: I50.9 - Heart failure, unspecified ER Course Patient presents with chronic knee pain and CHF. Is in no respiratory distress. Oxygenation is 100% on room air. Lungs are clear. His heart rate is in the 80s to 90s. This is unchanged from before. I gave him a dose of intrapare nteral Lasix and discharged home. Status: improved Disposition: HOME, SELF-CARE Condition: Stable Additional Instructions: Take your medication. Follow-up with with your doctor in 7 days. You do not need to go to different hospitals for your chronic knee pain. Rajinder Coyle MD Aug 22, 2020 23:46
[2020-08-23] MEDS ORDERED: Ketorolac 30mg Inj IM ONE
--- NOTE | 2020-08-23 | NUR ---
ED Nurse Note: Pt c/o bilateral lower leg swelling and pain. Reports he was recently at another local hospital for a "2nd opinion". Pt is AAO x4, ambulated into the ED without assist.
[2020-08-23 00:24] VITALS: BP 132/81
--- NOTE | 2020-08-23 01:00 | NUR ---
Pt urinated 350ml in urinal. Advised him that he can be discharged after he gets dressed.
[2020-08-23 01:15] VITALS: BP 132/81
--- NOTE | 2020-08-23 01:48 | NUR ---
ER DISCHARGE NOTE: Patient is cleared to be discharged per ER MD, pt is aao x4, on room air, with stable vital signs. Pt left without d/c instructions. pt is able to ambulate with steady gait. pt took all belongings.
== END 2020-08-23 01:20 | disposition home or self-care (01) ==
LOC: EMR 23:34
DX: G89.29 Other chronic pain (principal); M25.562 Pain in left knee; M25.561 Pain in right knee; I11.0 Hypertensive heart disease with heart failure; I50.9 Heart failure, unspecified; I48.91 Unspecified atrial fibrillation
CPT/HCPCS: 96372; 96374; 99284; J1885; J1940

== ENCOUNTER 2020-08-26 19:05 | Emergency (ER) | payer MEDICARE, MEDICAID ==
[~2020-08-26] VITALS: Ht 177.8 cm; Wt 97.5 kg
[2020-08-26 19:10] VITALS: BP 144/81
--- NOTE | 2020-08-26 19:19 | Emergency Room Report ---
History of Present Illness General Chief Complaint: Pain Source: Patient Present Illness HPI Disclaimer: Please note that this report is being documented using DRAGON technology. This can lead to erroneous entry secondary to incorrect interpretation by the dictating instrument. HPI: 69-year-old male history of arthritis, CHF, atrial fibrillation presents for bilateral knee pain. He was released from [facility] earlier today after a 4- day stay for congestive heart failure. He states he was diuresed adequately. Complaining of aching pain in both knees. No injury. This is a chronic issue. Denies shortness of breath, palpitations, swelling or redness or heat. PMH: Atrial fibrillation, venous insufficiency, gout, arthritis, hypertension, CHF PSH: Reviewed Allergies: Allopurinol, diltiazem, certain adhesive Social: Reviewed Allergies: Coded Allergies: No Known Allergies (Unverified , 08/12/20) COVID-19 Screening Contact w/high risk pt: No Recent Travel to affected area: No Experienced COVID-19 symptoms?: No COVID-19 Testing performed OCULAR CARE TECHNICIAN: No Nursing Documentation-PMH Past Medical History: No History, Except For Hx Cardiac Problems: Yes - afib, CHF, gout Hx Hypertension: Yes Hx Pacemaker: No - retina detachment in the rigth eye Hx Asthma: No Hx COPD: No Hx Diabetes: No Hx Cancer: No Hx Gastrointestinal Problems: No Hx Dialysis: No Hx Neurological Problems: No Hx Cerebrovascular Accident: No Hx Seizures: No Review of Systems All Other Systems: negative except mentioned in HPI Physical Exam Vital Signs Date Time Temp Pulse Resp B/P (MAP) Pulse Ox O2 Delivery O2 Flow Rate FiO2 08/26/20 19:10 98.6 86 16 144/81 (102) 99 Room Air General: Awake and alert, no acute distress HEENT: NC/AT. EOMI. Resp: Normal work of breathing Skin: Intact. No abrasions, laceration or rash over the exposed skin MSK: Normal tone and bulk. Moving all extremities. No obvious deformity. Patella is in anatomic position. No significant edema, erythema or warmth. No effusion noted. Neuro: Awake and alert. Mentating appropriately Medical Decision Making Diagnostic Impression: Primary Impression: Bilateral knee pain ER Course 69-year-old male recently released from [facility] for CHF exacerbation complaining of bilateral knee pain without injury. This a chronic issue from his arthritis. No evidence of respiratory distress. Stable for outpatient follow-up. Last Vital Signs Date Time Temp Pulse Resp B/P (MAP) Pulse Ox O2 Delivery O2 Flow Rate FiO2 08/26/20 19:10 98.6 86 16 144/81 (102) 99 Room Air Disposition: HOME, SELF-CARE Condition: Stable Referrals: Mariano Alaniz MD Additional Instructions: Please follow-up with your primary care doctor in the next 1 to 3 days to discuss this emergency department visit and for reevaluation. If you have any new or worsening symptoms please return to the emergency department for reevaluation. Please note that this report is being documented using [employer] technology. This can lead to erroneous entry secondary to incorrect interpretation by the dictating instrument. Sebastian Payton MD Aug 26, 2020 19:19
--- NOTE | 2020-08-26 19:20 | NUR ---
ED Nurse Note: patient from home and walked in due to bilateral knee pain and feet since this morning. AAO x4 and ambulatory.
[2020-08-26] MEDS ORDERED: Ketorolac 30mg Inj IM ONE (19:30)
[2020-08-26 19:32] VITALS: BP 135/79
--- NOTE | 2020-08-26 19:32 | NUR ---
ER DISCHARGE NOTE: Patient is cleared to be discharged per PA, pt is aox4, on room air, with stable vital signs. pt was given dc instructions, pt was able to verbalize understanding, pt id band removed without complications. pt is able to ambulate with steady gait. pt took all belongings.
--- NOTE | 2020-08-26 19:32 | NUR ---
Note quintentorie in EDM - 08/26/20 at 1935 by PILI ER DISCHARGE NOTE: Patient is cleared to be discharged per PA, pt is aox4, on room air, with stable vital signs. pt was given dc and prescription instructions, pt was able to verbalize understanding, pt id band removed without complications. pt is able to ambulate with steady gait. pt took all belongings.
== END 2020-08-26 20:00 | disposition home or self-care (01) ==
LOC: EMR 19:30
DX: M25.562 Pain in left knee (principal); M25.561 Pain in right knee; I11.0 Hypertensive heart disease with heart failure; I50.9 Heart failure, unspecified; Z88.8 Allergy status to other drugs, medicaments and biological substances; M19.90 Unspecified osteoarthritis, unspecified site
CPT/HCPCS: 96372; 99283; J1885

== ENCOUNTER 2020-08-28 00:47 | Emergency (ER) | payer MEDICARE, MEDICAID ==
[~2020-08-28] VITALS: Ht 177.8 cm; Wt 97.5 kg
--- NOTE | 2020-08-28 01:03 | NUR ---
ED Nurse Note: Patient walked in the ED complaining of heart palpitations that started four hours ago. Patient has history of Afib, has been on carvedilol. AOX4, calm and cooperative.
[2020-08-28 01:08] VITALS: BP 137/84
--- NOTE | 2020-08-28 01:08 | Emergency Room Report ---
History of Present Illness General Chief Complaint: Palpitations Source: Patient Present Illness HPI Disclaimer: Please note that this report is being documented using DRAGON technology. This can lead to erroneous entry secondary to incorrect interpretation by the dictating instrument. HPI: 69-year-old male history of atrial fibrillation presents for palpitations. Symptoms began 5 hours ago while at rest. Describes it as his heart is "bouncing around." He took clonidine and metoprolol with no significant improvement. Recently was admitted at [facility] for CHF exacerbation. Denies chest pain, pressure, shortness of breath, cough or congestion. Patient states he is compliant with his apixaban. PMH: Atrial fibrillation, venous insufficiency, gout, arthritis, hypertension, CHF PSH: Reviewed Allergies: Allopurinol, diltiazem, certain adhesive Allergies: Coded Allergies: No Known Allergies (Unverified , 08/12/20) COVID-19 Screening Contact w/high risk pt: No Recent Travel to affected area: No Experienced COVID-19 symptoms?: No COVID-19 Testing performed LANGUAGE THERAPIST: Yes - 08/25/20 COVID-19 Screening: Negative COVID-19 COVID-19 Testing Source: [facility] Documentation-PMH Past Medical History: No History, Except For Hx Cardiac Problems: Yes - afib, CHF, gout Hx Hypertension: Yes Hx Pacemaker: No - retina detachment in the rigth eye Hx Asthma: No Hx COPD: No Hx Diabetes: No Hx Cancer: No Hx Gastrointestinal Problems: No Hx Dialysis: No Hx Neurological Problems: No Hx Cerebrovascular Accident: No Hx Seizures: No Review of Systems All Other Systems: negative except mentioned in HPI Physical Exam Vital Signs Date Time Temp Pulse Resp B/P (MAP) Pulse Ox O2 Delivery O2 Flow Rate FiO2 08/28/20 00:53 98.2 75 18 170/98 (122) 100 Room Air General: Awake and alert, no acute distress HEENT: NC/AT. EOMI. Cardiovascular: Irregularly irregular rhythm with rapid rate Resp: Normal work of breathing. No cough, wheezing or crackles appreciated Abdomen: Abdomen is soft, nondistended. Nontender Skin: Intact. No abrasions, laceration or rash over the exposed skin MSK: Normal tone and bulk. Moving all extremities. No obvious deformity. Neuro: Awake and alert. Mentating appropriately. Medical Decision Making ER Course 69-year-old male history of atrial fibrillation presents with palpitations. He is tachycardic and EKG shows a rapid and regular regular rate consistent with rapid atrial fibrillation. Blood pressures elevated. States he took clonidine and metoprolol prior to arrival. IV metoprolol controlled his rate. Troponin negative. Kidney function at baseline. Blood pressure improved. Patient requested a dose of IV Lasix prior to departure. He will follow up with his PMD. 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 Discussed reasons to return to ER. He understands and agrees with this treatment plan. Laboratory Tests Test 08/28/20 01:45 White Blood Count 7.9 K/UL (4.8-10.8) Red Blood Count 4.77 M/UL (4.70-6.10) Hemoglobin 14.5 G/DL (14.2-18.0) Hematocrit 45.7 % (42.0-52.0) Mean Corpuscular Volume 96 FL (80-99) Mean Corpuscular Hemoglobin 30.5 PG (27.0-31.0) Mean Corpuscular Hemoglobin Concent 31.8 G/DL (32.0-36.0) L Red Cell Distribution Width 13.7 % (11.6-14.8) Platelet Count 160 K/UL (150-450) Mean Platelet Volume 10.0 FL (6.5-10.1) Neutrophils (%) (Auto) 56.2 % (45.0-75.0) Lymphocytes (%) (Auto) 27.4 % (20.0-45.0) Monocytes (%) (Auto) 11.3 % (1.0-10.0) H Eosinophils (%) (Auto) 3.5 % (0.0-3.0) H Basophils (%) (Auto) 1.6 % (0.0-2.0) Sodium Level 142 MMOL/L (136-145) Potassium Level 3.7 MMOL/L (3.5-5.1) Chloride Level 109 MMOL/L (98-107) H Carbon Dioxide Level 27 MMOL/L (21-32) Anion Gap 6 mmol/L (5-15) Blood Urea Nitrogen 33 mg/dL (7-18) H Creatinine 2.0 MG/DL (0.55-1.30) H Estimated Glomerular Filtration Rate 40.4 mL/min (>60) Glucose Level 109 MG/DL (74-106) H Calcium Level 10.2 MG/DL (8.5-10.1) H Total Bilirubin 0.5 MG/DL (0.2-1.0) Aspartate Amino Transferase (AST) 32 U/L (15-37) Alanine Aminotransferase (ALT) 32 U/L (12-78) Alkaline Phosphatase 111 U/L (46-116) Troponin I 0.037 ng/mL (0.000-0.056) Total Protein 6.4 G/DL (6.4-8.2) Albumin 3.3 G/DL (3.4-5.0) L Globulin 3.1 g/dL Albumin/Globulin Ratio 1.1 (1.0-2.7) EKG Diagnostic Results Troponin ordered: Yes When was troponin ordered?: Aug 28, 2020 EKG Time: 00:59 Rate: tachycardiac Other Impression Irregularly irregular rhythm with rapid rate consistent with rapid atrial fibrillation Rhythm Strip Diag. Results Rhythm Strip Time: 00:59 EP Interpretation: yes Rate: 120s Rhythm: other - Atrial fibrillation Last Vital Signs Date Time Temp Pulse Resp B/P (MAP) Pulse Ox O2 Delivery O2 Flow Rate FiO2 08/28/20 00:53 98.2 75 18 170/98 (122) 100 Room Air Disposition: HOME, SELF-CARE Condition: Improved Sebastian Payton MD Aug 28, 2020 01:08
[2020-08-28] MEDS ORDERED: Metoprolol Tartrate 50mg tab ORAL ONE (01:15)
[2020-08-28] MEDS ORDERED: Morphine Sulfate 2mg/ml Inj(IV/IM USE ONLY) ONE (02:10)
[2020-08-28 02:21] LABS: BASOPHILS % (AUTO) 1.6 % (0.0-2.0); EOSINOPHILS % (AUTO) 3.5 % (0.0-3.0); HEMATOCRIT 45.7 % (42.0-52.0); HEMOGLOBIN 14.5 G/DL (14.2-18.0); LYMPHOCYTES % (AUTO) 27.4 % (20.0-45.0); MEAN CORPUSCULAR VOLUME 96 FL (80-99); MONOCYTES % (AUTO) 11.3 % (1.0-10.0); NEUTROPHILS % (AUTO) 56.2 % (45.0-75.0); PLATELET COUNT 160 K/UL (150-450); RED BLOOD COUNT 4.77 M/UL (4.70-6.10); RED CELL DISTRIBUTION WIDTH 13.7 % (11.6-14.8); WHITE BLOOD COUNT 7.9 K/UL (4.8-10.8)
[2020-08-28 02:27] LABS: CALCIUM 10.2 MG/DL (8.5-10.1); POTASSIUM 3.7 MMOL/L (3.5-5.1)
[2020-08-28] MEDS ORDERED: Morphine Sulfate 2mg/ml Inj(IV/IM USE ONLY) IVP ONE (02:30)
[2020-08-28 02:32] LABS: ALBUMIN 3.3 G/DL (3.4-5.0); ALBUMIN/GLOBULIN RATIO 1.1 (1.0-2.7); BILIRUBIN,TOTAL 0.5 MG/DL (0.2-1.0)
[2020-08-28 02:41] VITALS: BP 127/94
[2020-08-28 03:05] VITALS: BP 134/90
--- NOTE | 2020-08-28 03:05 | NUR ---
ER DISCHARGE NOTE: Patient is cleared to be discharged per ERMD, pt is aox4, on room air, with stable vital signs. pt was given dc instructions, pt was able to verbalize understanding, pt id band and iv site removed without complications. pt is able to ambulate with steady gait. pt took all belongings.
--- NOTE | 2020-08-30 13:57 | Cardiology Report ---
APPROVED REPORT EKG Measurement Heart [id number] <Conclusion> Atrial fibrillation with rapid ventricular response with premature ventricular or aberrantly conducted complexes Minimal voltage criteria for LVH, may be normal variant Nonspecific T wave abnormality Abnormal ECG
== END 2020-08-28 03:00 | disposition home or self-care (01) ==
LOC: EMR 01:15
DX: I48.91 Unspecified atrial fibrillation (principal); R00.2 Palpitations; R00.0 Tachycardia, unspecified; I11.0 Hypertensive heart disease with heart failure; I50.9 Heart failure, unspecified; M19.90 Unspecified osteoarthritis, unspecified site
CPT/HCPCS: 36415; 80053; 84484; 85025; 93005; 96374; 96375; 99284; J1940; J2270

== ENCOUNTER 2020-08-30 00:19 | Emergency (ER) | payer MEDICARE, MEDICAID ==
[~2020-08-30] VITALS: Ht 177.8 cm; Wt 97.5 kg
--- NOTE | 2020-08-30 00:50 | NUR ---
ED Nurse Note: Patient walked into ED c/o bilateral knee pain onset for the past 3 days now, patient has been here multiple times this year for the same problem, reports it as as chronic issue, patient rates his pain a 10/10 pain, denies any trauma. able to ambulate just fine. patient is alert and oriented x4, ambulatory with a steady gait, VSS
[2020-08-30 00:55] VITALS: BP 147/88
[2020-08-30] MEDS ORDERED: Ketorolac 30mg Inj ONE (01:12)
--- NOTE | 2020-08-30 01:14 | Emergency Room Report ---
History of Present Illness General Chief Complaint: Pain Source: Patient Present Illness HPI This is a 69-year-old male who is well-known to this ER. He has 20 visits this year long. He has history of CHF and A. fib. Also history of chronic knee pain. He presents with chief complaint of bilateral knee pain. He said is been ongoing for a while but worse today. Worse with walking. He just want a Toradol shot. He denies any trauma. No fever chills. No chest pain. No exertional component. Allergies: Coded Allergies: No Known Allergies (Unverified , 08/12/20) COVID-19 Screening Contact w/high risk pt: No Recent Travel to affected area: No Experienced COVID-19 symptoms?: No COVID-19 Testing performed INFORMATION SYSTEMS COORDINATOR: Yes - 08/24/20 COVID-19 Screening: Negative COVID-19 COVID-19 Testing Source: [facility] Patient History Past Medical History: see triage record, old chart reviewed, CHF Past Surgical History: other Pertinent Family History: none Social History: Denies: smoking Immunizations: other Reviewed Nursing Documentation: PMH: Agreed; PSxH: Agreed Nursing Documentation-PMH Past Medical History: No History, Except For Hx Cardiac Problems: Yes - afib, CHF, gout Hx Hypertension: Yes Hx Pacemaker: No - retina detachment in the rigth eye Hx Asthma: No Hx COPD: No Hx Diabetes: No Hx Cancer: No Hx Gastrointestinal Problems: No Hx Dialysis: No Hx Neurological Problems: No Hx Cerebrovascular Accident: No Hx Seizures: No Review of Systems Eye: Denies: eye pain, blurred vision ENT: Denies: ear pain, nose congestion, throat swelling Respiratory: Denies: cough, shortness of breath Cardiovascular: Denies: chest pain, palpitations Gastrointestinal: Denies: abdominal pain, diarrhea, nausea, vomiting Musculoskeletal: Reports: joint pain; Denies: back pain Skin: Denies: rash Neurological: Denies: headache, numbness Endocrine: Denies: increased thirst, increased urine Hematologic/Lymphatic: Denies: easy bruising All Other Systems: negative except mentioned in HPI Physical Exam Vital Signs Date Time Temp Pulse Resp B/P (MAP) Pulse Ox O2 Delivery O2 Flow Rate FiO2 08/30/20 00:49 98.6 79 18 147/88 (107) 98 Room Air Vitals unremarkable Sp02 EP Interpretation: reviewed, normal General Appearance: well appearing, no apparent distress, alert Head: normocephalic, atraumatic Eyes: bilateral eye PERRL, bilateral eye EOMI ENT: hearing grossly normal, normal pharynx Neck: full range of motion, supple, no meningismus Respiratory: chest non-tender, lungs clear, normal breath sounds Cardiovascular #1: regular rate, rhythm, no murmur Gastrointestinal: normal bowel sounds, non tender, no mass, no organomegaly, no bruit, non-distended Musculoskeletal: back normal, normal range of motion, gait/station normal Psychiatric: mood/affect normal Medical Decision Making Diagnostic Impression: Primary Impression: Bilateral knee pain Qualified Codes: M25.561 - Pain in right knee; M25.562 - Pain in left knee ER Course Patient with acute on chronic bilateral knee pain. This is most likely arthritic in nature. He is in no respiratory distress. Heart rate is normal. He does have pedal edema which is chronic in nature. No change from before. No evidence of any septic joint. Will discharge home. Last Vital Signs Date Time Temp Pulse Resp B/P (MAP) Pulse Ox O2 Delivery O2 Flow Rate FiO2 08/30/20 00:55 98.6 76 18 147/88 98 Room Air Status: improved Disposition: HOME, SELF-CARE Condition: Stable Referrals: Mariano Alaniz MD (PCP) Additional Instructions: Follow-up with your doctor in 7 days. Return if symptoms worsen. Rajinder Coyle MD Aug 30, 2020 01:14
[2020-08-30 01:15] VITALS: BP 138/82
[2020-08-30] MEDS ORDERED: Ketorolac 30mg Inj IM ONE (01:15)
== END 2020-08-30 01:15 | disposition home or self-care (01) ==
LOC: EMR 00:44
DX: M25.561 Pain in right knee (principal); M25.562 Pain in left knee; I11.9 Hypertensive heart disease without heart failure; I48.91 Unspecified atrial fibrillation
CPT/HCPCS: 96372; 99283; J1885

== ENCOUNTER → 2020-08-31 | Emergency (ER) | payer MEDICARE, MEDICAID ==
[~2020-08-31] VITALS: Ht 170.2 cm; Wt 93.0 kg
[~2020-08-31] MED LIST changes: +Ketorolac 30mg Inj IM ONE
[2020-08-31 19:46] VITALS: BP 135/78
--- NOTE | 2020-08-31 19:47 | Emergency Room Report ---
History of Present Illness General Chief Complaint: Pain Source: Patient Present Illness HPI Disclaimer: Please note that this report is being documented using DRAGON technology. This can lead to erroneous entry secondary to incorrect interpretation by the dictating instrument. HPI: 69-year-old male history of bilateral knee pain and arthritis presents for knee pain. Patient has chronic pain in both knees. Follows with his PMD. No new injury. States it is worse with walking and somewhat better with rest. Denies new swelling, warmth, water retention. Denies chest pain, palpitations or shortness of breath. PMH: Atrial fibrillation, venous insufficiency, gout, arthritis, hypertension, CHF PSH: Reviewed Allergies: Allopurinol, diltiazem Social: Reviewed Allergies: Coded Allergies: No Known Allergies (Unverified , 08/12/20) COVID-19 Screening Contact w/high risk pt: No Recent Travel to affected area: No Experienced COVID-19 symptoms?: No COVID-19 Testing performed TALKBACK HOST: No Nursing Documentation-PMH Hx Cardiac Problems: Yes - afib, CHF, gout Hx Hypertension: Yes Hx Pacemaker: No - retina detachment in the rigth eye Hx Asthma: No Hx COPD: No Hx Diabetes: No Hx Cancer: No Hx Gastrointestinal Problems: No Hx Dialysis: No Hx Neurological Problems: No Hx Cerebrovascular Accident: No Hx Seizures: No Review of Systems All Other Systems: negative except mentioned in HPI Physical Exam Vital Signs Date Time Temp Pulse Resp B/P (MAP) Pulse Ox O2 Delivery O2 Flow Rate FiO2 08/31/20 19:40 97.9 68 18 132/78 (96) 98 Room Air General: Awake and alert, no acute distress HEENT: NC/AT. EOMI. Resp: Normal work of breathing Skin: Intact. No abrasions, laceration or rash over the exposed skin MSK: Normal tone and bulk. Moving all extremities. No obvious deformity. No knee effusion. No redness. No swelling. No skin breakdown. Ambulating with steady gait. Neuro: Awake and alert. Mentating appropriately Medical Decision Making Diagnostic Impression: Primary Impression: Knee pain ER Course 69-year-old male history of arthritis and chronic knee pain. No new injury. This is an ongoing issue for the patient. No indication for new imaging at this time. He stable for outpatient follow-up. Instructed to return new or worsening symptoms. Last Vital Signs Date Time Temp Pulse Resp B/P (MAP) Pulse Ox O2 Delivery O2 Flow Rate FiO2 08/31/20 19:40 97.9 68 18 132/78 (96) 98 Room Air Disposition: HOME, SELF-CARE Condition: Stable Referrals: Mariano Alaniz MD Additional Instructions: Please follow-up with your primary care doctor in the next 1 to 3 days to discuss this emergency department visit and for reevaluation. If you have any new or worsening symptoms please return to the emergency department for reevaluation. Please note that this report is being documented using Bloc technology. This can lead to erroneous entry secondary to incorrect interpretation by the dictating instrument. Sebastian Payton MD Aug 31, 2020 19:47
--- NOTE | 2020-08-31 19:48 | NUR ---
ED Nurse Note: pt walked in to the ed due to kneww pain . vitals are stable
[2020-08-31 19:58] VITALS: BP 135/78
== END | disposition home or self-care (01) ==
LOC: EMR 20:20
DX: G89.29 Other chronic pain (principal); M25.562 Pain in left knee; M25.561 Pain in right knee; M17.0 Bilateral primary osteoarthritis of knee; I48.91 Unspecified atrial fibrillation; I11.0 Hypertensive heart disease with heart failure; I50.9 Heart failure, unspecified
CPT/HCPCS: 96372; 99283; J1885

== ENCOUNTER 2020-09-07 13:06 | Emergency (ER) | payer MEDICARE, MEDICAID ==
[~2020-09-07] VITALS: Ht 172.7 cm; Wt 83.9 kg
[~2020-09-07 13:06] MED LIST changes: -Ketorolac 30mg Inj IM ONE
[2020-09-07] MEDS ORDERED: Ketorolac 60mg Inj IM ONE (13:30)
[2020-09-07 13:33] VITALS: BP 153/84
[2020-09-07] MEDS ORDERED: FUROSEMIDE40 MG ORAL (13:34)
[2020-09-07] MEDS ORDERED: HYDROCORT 2.5%-30 GM TP (13:34)
--- NOTE | 2020-09-07 13:39 | Emergency Room Report ---
History of Present Illness General Chief Complaint: General Complaint Source: Patient Present Illness HPI Patient is a 69-year-old male presents to the ER with multiple complaints. Patient complains of arthritis and joint pain. He is requesting pain medication for that. Patient also complains of a rash to bilateral upper extremities he states that it is itchy. Patient also states that he needs a refill on his Lasix. He denies any chest pain or shortness of breath. He denies any abdominal pain nausea or vomiting. 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: No Patient History Reviewed Nursing Documentation: PMH: Agreed; PSxH: Agreed Nursing Documentation-PMH Hx Cardiac Problems: Yes - afib, CHF, gout Hx Hypertension: Yes Hx Pacemaker: No - retina detachment in the rigth eye Hx Asthma: No Hx COPD: No Hx Diabetes: No Hx Cancer: No Hx Gastrointestinal Problems: No Hx Dialysis: No Hx Neurological Problems: No Hx Cerebrovascular Accident: No Hx Seizures: No Review of Systems All Other Systems: negative except mentioned in HPI Physical Exam Vital Signs Date Time Temp Pulse Resp B/P (MAP) Pulse Ox O2 Delivery O2 Flow Rate FiO2 09/07/20 13:28 98.1 78 16 153/84 (107) 98 Room Air Sp02 EP Interpretation: reviewed, normal General Appearance: no apparent distress, alert, GCS 15, non-toxic Head: normocephalic, atraumatic Eyes: bilateral eye normal inspection, bilateral eye PERRL ENT: hearing grossly normal, normal pharynx, no angioedema, normal voice, pharyngeal erythema Neck: full range of motion, supple, no meningismus, supple/symm/no masses Respiratory: chest non-tender, lungs clear, normal breath sounds, no respiratory distress Cardiovascular #1: irregularly irregular Gastrointestinal: normal bowel sounds, non tender Rectal: deferred Musculoskeletal: normal range of motion, other - biLateral lower extremity edema chronic Neurologic: manager emergency III-XII nml as tested Psychiatric: no suicidal/homicidal ideation Skin: other - Dry plaque-like rash to bilateral brachial regions of the upper extremity with excoriations no surrounding cellulitis Lymphatic: no adenopathy Medical Decision Making Diagnostic Impression: Primary Impression: Arthritis Additional Impressions: Dermatitis Medication refill ER Course Patient given intramuscular Toradol. Patient given a prescription for Lasix until he can see his primary care physician Dr. Alaniz as well as prescription for ketoconazole with hydrocortisone. After discussing risks and benefits of further diagnostics, treatment plans, as well as indications for and risks of admission, the patient is agreeable to being discharged home. I have explained that their evaluation and treatment in the emergency department today is an important step towards them achieving better health but that their evaluation today is not intended to replace further evaluation and treatment by a physician in their local clinic. I have explained that while the current findings suggest no immediate life threatening emergency they will require further evaluation and treatment by a physician of their choice in their area. They understand that it will be necessary for them to review the final reports of their ED visit with their clinic physician. We have reviewed indications for return to the Emergency Department. I have explained that additional time may need to pass and/or additional testing as an outpatient may be necessary before a definitive diagnosis can be made. They tell me they are willing to follow up as instructed within the timeframe I recommend. They appear to understand what we discussed. Additionally they understand that if they are unable to be seen by an outpatient physician they are welcome, and in fact should, return to the Emergency Department for a repeat evaluation. The patient is stable at time of discharge. Last Vital Signs Date Time Temp Pulse Resp B/P (MAP) Pulse Ox O2 Delivery O2 Flow Rate FiO2 09/07/20 13:33 78 16 Room Air 09/07/20 13:33 98.1 153/84 98 Disposition: HOME, SELF-CARE Condition: Stable Scripts Ketoconazole/Hydrocortisone (Hydrocort 2.5%-Ketoconazole 2%) 30 Gm Cream..g. 30 GM TP BID for 14 Days, GM Prov: Lolis Cano M.D. 09/07/20 Furosemide* (LASIX*) 40 Mg Tablet 40 MG ORAL DAILY, #30 TAB Prov: Lolis Cano M.D. 09/07/20 Referrals: Mariano Alaniz MD Patient Instructions: Medicine Refill at the Emergency Department, Arthritis, [id number], Rash, [id number] Additional Instructions: The patient was provided with discharge instructions, notified to follow-up with a primary care doctor and or specialist in the next 24-48 hours, and to return to the ED if they have worsening of their symptoms. Please note that this report is being documented using DRAGON technology. This can lead to erroneous entry secondary to incorrect interpretation by the dictating instrument. Lolis Cano M.D. Sep 07, 2020 13:39
--- NOTE | 2020-09-07 13:50 | NUR ---
Came to er complaints of joint pains denies any injury
[2020-09-07 14:25] VITALS: BP 153/84
--- NOTE | 2020-09-07 14:28 | NUR ---
discharged home with instruction and rx follow up with pmd
== END 2020-09-07 14:31 | disposition home or self-care (01) ==
LOC: EMR 13:45
DX: M19.90 Unspecified osteoarthritis, unspecified site (principal); L30.9 Dermatitis, unspecified; Z76.0 Encounter for issue of repeat prescription; I11.0 Hypertensive heart disease with heart failure; I50.9 Heart failure, unspecified; I48.91 Unspecified atrial fibrillation; M10.9 Gout, unspecified; Z79.899 Other long term (current) drug therapy
CPT/HCPCS: 96372; 99283

== ENCOUNTER 2020-09-25 06:25 | Emergency (ER) | payer MEDICARE, MEDICAID ==
[~2020-09-25] VITALS: Ht 177.8 cm; Wt 97.1 kg
[~2020-09-25 06:25] MED LIST changes: +HYDROCORT 2.5%-30 GM TP
[2020-09-25 06:34] VITALS: BP 121/86
--- NOTE | 2020-09-25 06:40 | NUR ---
pt medicated per mar
--- NOTE | 2020-09-25 06:41 | Emergency Room Report ---
History of Present Illness General Chief Complaint: Pain Source: Patient Present Illness HPI Patient is well-known to our department. Patient has had multiple visits for arthritis. Patient states that he usually receives 1 dose of Toradol. He is requesting a Toradol medication at this time. He denies any fever nausea vomiting diarrhea chills. Denies any chest pain shortness of breath. No other complaints were noted. Symptoms noted to be mild. No other modifying factors. No other associated signs and symptoms. No other complaints were noted. Allergies: Coded Allergies: No Known Allergies (Unverified , 08/12/20) COVID-19 Screening Contact w/high risk pt: No Recent Travel to affected area: No Experienced COVID-19 symptoms?: No COVID-19 Testing performed RIB BENDER: No COVID-19 Screening: PUI COVID-19 Patient History Past Medical History: HTN, CHF Past Surgical History: none Social History: Denies: smoking, alcohol use, drug use Reviewed Nursing Documentation: PMH: Agreed; PSxH: Agreed Nursing Documentation-PMH Hx Cardiac Problems: Yes - afib, CHF, gout Hx Hypertension: Yes Hx Pacemaker: No - retina detachment in the rigth eye Hx Asthma: No Hx COPD: No Hx Diabetes: No Hx Cancer: No Hx Gastrointestinal Problems: No Hx Dialysis: No Hx Neurological Problems: No Hx Cerebrovascular Accident: No Hx Seizures: No Review of Systems All Other Systems: negative except mentioned in HPI Physical Exam Vital Signs Date Time Temp Pulse Resp B/P (MAP) Pulse Ox O2 Delivery O2 Flow Rate FiO2 09/25/20 06:26 98.6 64 18 121/86 (98) 100 Room Air Sp02 EP Interpretation: reviewed, normal General Appearance: normal inspection, well appearing, no apparent distress, alert Head: atraumatic Eyes: bilateral eye normal inspection ENT: normal ENT inspection, hearing grossly normal, normal voice Neck: normal inspection, full range of motion, supple, no bony tend Respiratory: normal inspection, lungs clear, normal breath sounds, no respiratory distress, no retraction, no wheezing Cardiovascular #1: regular rate, rhythm, no edema Gastrointestinal: normal inspection, normal bowel sounds, non tender, soft, no guarding, no hernia Genitourinary: no CVA tenderness Musculoskeletal: normal inspection, back normal, normal range of motion Neurologic: alert, responsive, speech normal, normal inspection Psychiatric: normal inspection, judgement/insight normal, mood/affect normal Skin: no rash Medical Decision Making Diagnostic Impression: Primary Impression: Arthritis ER Course Patient presents emergency department today complaining of arthralgias. Differential considerations include arthritis, cramping, muscle spasm just name a few. Patient's exam is fairly benign. Given patient's long history of arthritis of others reasonable give patient 1 dose of Toradol. Will use only 15 mg given patient's history of renal insufficiency. Patient is advised to follow up with primary doctor in 2-3 days and return the emergency room for any worsening symptoms and as needed. Last Vital Signs Date Time Temp Pulse Resp B/P (MAP) Pulse Ox O2 Delivery O2 Flow Rate FiO2 09/25/20 06:34 98.6 18 121/86 100 Room Air 09/25/20 06:26 64 Status: improved Disposition: HOME, SELF-CARE Condition: Stable Patient Instructions: Joint Pain Robert Felder MD Sep 25, 2020 06:41
[2020-09-25] MEDS ORDERED: Ketorolac 60mg Inj IM ONE (06:45)
--- NOTE | 2020-09-25 06:47 | NUR ---
pt aox3 given and understands discharge instructions. v/s stable. pt in no distress. ambulatory out w steady gait
[2020-09-26] MEDS ORDERED: ROBAXIN-750750 MG PO (04:37)
[2020-09-26] MEDS ORDERED: TYLENOL EXTRA500 MG ORAL (04:37)
[2020-09-26] MEDS ORDERED: LIDODERM700 M1 TOPIC (04:37)
== END 2020-09-25 06:50 | disposition home or self-care (01) ==
LOC: EMR 06:40
DX: M19.90 Unspecified osteoarthritis, unspecified site (principal); I11.0 Hypertensive heart disease with heart failure; I50.9 Heart failure, unspecified
CPT/HCPCS: 96372; 99283

== ENCOUNTER 2020-09-26 03:48 | Emergency (ER) | payer MEDICARE, MEDICAID ==
[~2020-09-26] VITALS: Ht 198.4 cm; Wt 97.1 kg
[2020-09-26] MEDS: Acetaminophen 500mg (ES) tab ORAL ONE (04:32)
[2020-09-26] MEDS: Methocarbamol 750mg tab ORAL ONE (04:32)
[2020-09-26 04:34] VITALS: BP 130/87
[2020-09-26] MEDS ORDERED: TYLENOL EXTRA500 MG ORAL (04:37)
[2020-09-26] MEDS ORDERED: LIDODERM700 M1 TOPIC (04:37)
[2020-09-26] MEDS ORDERED: ROBAXIN-750750 MG PO (04:37)
--- NOTE | 2020-09-26 04:38 | Emergency Room Report ---
History of Present Illness General Chief Complaint: Back Pain-No Injury Source: Patient Present Illness HPI 70-year-old -[place] male with past medical history of CHF, A. fib on Eliquis, CKD, osteoarthritis, glaucoma presents emergency department after mechanical slip and fall yesterday. Patient states that he was seen in the emergency department and was sitting outside of his business "near [employer]" and was sitting on a brick wall 2 feet off the ground when he "scoottedd over too far" and accidentally fell onto the ground on his R back(flank). He states that he was wearing several layers at that time which padded his fall. He did not immediately seek medical attention because he waned to monitor his stools and urine for blood, which he found none. He does have an appointment with Dr. Alaniz this morning. He currently denies headache, head trauma, loss of consciousness, syncope, neck pain, prodromal chest pain/back pain/abd pain, focal weakness or difficulty walking. Denies melena, hematochezia, hematuria, urinary retention, bowel or bladder incontinence, or midline back pain. The patient's symptoms were gradual onset, severity was moderate, duration since 1 day. Quality: Aching Past medical history: CHF, A. fib, osteoarthritis, CKD Past surgical history: Denies Smoking: Denies Alcohol use: Denies Drug use: Denies Review of systems: CONST: No fevers or chills, No night sweats PULMONARY: No productive cough, No shortness of breath CARDIAC: No chest pain, No palpitations GI: No vomiting, No diarrhea , No melena_or_BRBPR : No dysuria, No hematuria, No discharge NEURO: No new_focal_weakness_or_numbness, No confusion, No vision changes 14 point Review of Systems is otherwise negative except per HPI Physical Exam: GENERAL: Awake_alert_ nontoxic, no acute distress Spo2 98% on RA -normal EYES: Extraocular muscles are intact. Conjunctivae clear. Lids without swelling. ENT: External nose and ear normal_in_appearance. Oropharynx clear. Head_atraumatic, Moist_oral_mucosa. NECK: No JVD. No meningismus. No thyromegaly. Supple. Trachea midline. No midline cervical, thoracic, lumbar spinal step-off or deformity. RESP: Normal respiratory effort. Symmetric rise. No stridor. Clear_to_auscultation_No_rales_No_wheezes. No chest wall crepitus CARDIAC: Regular rate and regular rhytm. 1+ pedal edema bilaterally. Negative Homans' sign ABDOMEN: Soft. Nondistended. Nontender_No_rebound_or_guarding. No pelvic instability. No pulsatile mass. Minimal tenderness to palpation of the right flank. No left CVA tenderness to palpation. Negative Blaise sign. 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 MSK: Normal muscle tone, without rigidity. Extremities without asymmetric deformity or swelling. No snuffbox tenderness to palpation bilaterally SKIN: Warm and dry. No visible cyanosis or pallor. NEUROLOGIC: Alert, oriented x 3. Motor_and_sensation_grossly_intact. No truncal ataxia. Gait_normal Psych: Normal mood and affect, normal judgment and insight - COORDINATION OF CARE Case was discussed with: Patient Any imaging that were ordered were interpreted as part of the medical decision making: Medical Decision Making/Plan: Differential diagnosis includes closed head injury, scalp contusion, neck muscle spasm / strain, vs less likely skull fracture, intracranial bleeding, vertebral fracture, spinal cord compression / injury, among others. Differential diagnosis includes musculoskeletal pain, muscle spasm / sprain, vertebral fracture, spinal epidural abscess, spinal epidural hematoma, pyelonephritis, kidney stone, AAA, among others. Vitals are unremarkable. On exam, pulses are equal and symmetric bilaterally. Abdominal examination is benign. No pulsatile masses. No pelvic instability. No focal neurologic deficits noted. No midline spinal step offs or deformities appreciated. The patient has no significant red flags on history or exam. There was no evidence of any wounds that required repair Given the patients significant mechanism, CT scans of the Head/abd/pelvis/C/L spine were immediately obtained. He actively denies chest pain, shortness of breath, or anginal equivalent. He states that he is chronically edematous in the bilateral lower extremities. He denies any oliguria, hematuria, fever or symptomatology consistent with infection. He states that he has been compliant with seeing his outpatient stick puller. I reviewed patient's chart. He is here repeatedly for chronic osteoarthritis and typically gets Toradol. He was here yesterday and received Toradol for chronic pain. He has chronic renal insufficiency and has not had routine blood work to evaluate creatinine on file. I have instructed patient that he will not be getting NSAID today in the emergency department. Instead he was given Tylenol and Robaxin, with good relief of symptoms. The patient is non-toxic, well appearing and significantly improved with observation and serial exams in the emergency department. The patient is neurologically intact and able to ambulate, no evidence of spinal cord injury. Hips have no tenderness or significant pain with range of motion and the patient is able to ambulate without difficulty, no evidence of hip fracture. Patient has no significant risk factors for spinal epidural emergency such as fever, IVDU, HIV, or anticoagulant use. Patient is neurologically intact without any lower extremity weakness / numbness, saddle anesthesia, urinary retention or fecal incontinence. No evidence of any emergent process of the spinal cord or cauda equina at this time. The patients symptoms appear consistent with a musculoskeletal origin. The patient was counseled that they need to see their primary medical doctor Dr Alaniz this morning as scheduled for reevaluation and further treatment, and to return immediately if symptoms change or worsen. Care signed out to Dr. Peñaloza pending CT reads and re-evaluation after meds. Allergies: Coded Allergies: No Known Allergies (Unverified , 08/12/20) COVID-19 Screening Contact w/high risk pt: No Recent Travel to affected area: No Experienced COVID-19 symptoms?: No COVID-19 Testing performed CONCRETE TESTER: No Nursing Documentation-PMH Hx Cardiac Problems: Yes - afib, CHF, gout Hx Hypertension: Yes Hx Pacemaker: No - retina detachment in the rigth eye Hx Asthma: No Hx COPD: No Hx Diabetes: No Hx Cancer: No Hx Gastrointestinal Problems: No Hx Dialysis: No Hx Neurological Problems: No Hx Cerebrovascular Accident: No Hx Seizures: No Physical Exam Vital Signs Date Time Temp Pulse Resp B/P (MAP) Pulse Ox O2 Delivery O2 Flow Rate FiO2 09/26/20 03:59 98.2 77 18 130/87 (101) 98 Room Air Sp02 EP Interpretation: reviewed, normal Medical Decision Making Diagnostic Impression: Primary Impression: Rt flank pain Additional Impression: Arthritis Last Vital Signs Date Time Temp Pulse Resp B/P (MAP) Pulse Ox O2 Delivery O2 Flow Rate FiO2 09/26/20 03:59 98.2 77 18 130/87 (101) 98 Room Air Admit Decision Time: 06:00 Condition: Stable Signed Out To: Dr Peñaloza Scripts Lidocaine Patch* (Lidoderm Patch*) 1 Each Adh..patch 1 PATCH TOPIC DAILY, #7 PATCH 0 Refills Patch(es) may remain in place for up to 12 hours in any 24-hour period. Prov: Nakia Patel D.O. 09/26/20 Acetaminophen* (TYLENOL EXTRA STRENGTH*) 500 Mg Tablet 500 MG ORAL Q8H PRN for Prn Headache/Temp > 101, #30 TAB 0 Refills Prov: Nakia Patel D.O. 09/26/20 Methocarbamol* (ROBAXIN-750*) 750 Mg Tablet 750 MG PO TID, #21 TAB 0 Refills Prov: Nakia Patel D.O. 09/26/20 Patient Instructions: Back Pain, Adult, Contusion, [id number], Flank Pain, [id number] Nakia Patel D.O. Sep 26, 2020 04:38
--- NOTE | 2020-09-26 05:47 | NUR ---
Patient in bed in comfortable position and stable condition. All vitals signs were taken within normal range. All medications were administered without adverse reaction. Will continue to monitor.
--- NOTE | 2020-09-26 06:02 | Diagnostic Imaging Report ---
EXAM: CT Head Without Intravenous Contrast CLINICAL HISTORY: FALL TECHNIQUE: Axial computed tomography images of the head/brain without intravenous contrast. CTDI is 53 mGy and DLP is 1152 mGy-cm. One or more of the following dose reduction techniques were used: automated exposure control, adjustment of the mA and/or kV according to patient size, use of iterative reconstruction technique. COMPARISON: No relevant prior studies available. FINDINGS: No acute intracranial hemorrhage. No midline shift or mass effect. The territorial avila-white matter differentiation is maintained throughout. Cavum septum pellucidum et vergae. Age-related cerebral volume loss. Periventricular and subcortical white matter hypoattenuation, consistent with chronic microangiopathy. The visualized orbits appear grossly unremarkable. The calvarium is intact. The visualized paranasal sinuses and mastoid air cells are grossly clear. IMPRESSION: No acute intracranial hemorrhage, midline shift, or mass effect.
--- NOTE | 2020-09-26 06:23 | Diagnostic Imaging Report ---
EXAM: CT Cervical Spine Without Intravenous Contrast CLINICAL HISTORY: FALL TECHNIQUE: Axial computed tomography images of the cervical spine without intravenous contrast. CTDI is 20.2 mGy and DLP is 678.1 mGy-cm. One or more of the following dose reduction techniques were used: automated exposure control, adjustment of the mA and/or kV according to patient size, use of iterative reconstruction technique. COMPARISON: No relevant prior studies available. FINDINGS: The vertebral body heights are maintained. There is no spondylolisthesis. The craniocervical junction is intact. The atlanto-dens interval is maintained. The dens is intact. Straightening of the cervical lordosis. Severe multilevel degenerative changes, consisting of endplate changes, disc-space narrowing, and posterior spondylitic ridging. Multilevel facet/uncovertebral arthropathy. Minimal low-grade spinal canal stenosis at C5-6 and C6-7. Multilevel high-grade bilateral foraminal stenosis. The unenhanced neck soft tissues are grossly unremarkable. The visualized lung apices are grossly clear. Diffuse osseous demineralization. IMPRESSION: No cervical spine fracture. Multilevel cervical spondylosis and degenerative disease. No high-grade spinal canal stenosis.
--- NOTE | 2020-09-26 06:47 | Diagnostic Imaging Report ---
EXAM: CT Abdomen Without Intravenous Contrast CLINICAL HISTORY: FALL TECHNIQUE: Axial computed tomography images of the abdomen without intravenous contrast. CTDI is 13.9 mGy and DLP is 843.50 mGy-cm. One or more of the following dose reduction techniques were used: automated exposure control, adjustment of the mA and/or kV according to patient size, use of iterative reconstruction technique. COMPARISON: No relevant prior studies available. FINDINGS: Lung bases: Atelectasis at the lung bases. Severe cardiomegaly. Liver: Unremarkable. Gallbladder and bile ducts: Contracted gallbladder. No calcified stones. No ductal dilation. Pancreas: Unremarkable. No ductal dilation. Spleen: Unremarkable. No splenomegaly. Adrenals: Unremarkable. No mass. Kidneys and ureters: No hydronephrosis. Nonobstructing 1.2 cm left lower pole renal calculus. Nonobstructing 4 mm right lower pole renal calculus. Bilateral renal cysts which are poorly evaluated due to lack of intravenous contrast. Stomach and bowel: Diverticulosis, without acute diverticulitis. No obstruction. Intraperitoneal space: Unremarkable. No free air. No significant fluid collection. Bones/joints: Degenerative changes of the spine. No acute fracture. No dislocation. Soft tissues: Simple lipoma within the right iliopsoas. Vasculature: Unremarkable. No abdominal aortic aneurysm. Lymph nodes: Unremarkable. No enlarged lymph nodes. Other findings: Decompressed urinary bladder. IMPRESSION: No traumatic visceral or solid organ injury. No hemoperitoneum. No acute fractures.
[2020-09-26 06:54] VITALS: BP 120/89
--- NOTE | 2020-09-26 06:56 | NUR ---
Patient was discharge home as EDP ordered. All vital signs were taken within normal range. Patient . All prescriptions and instructions were given to the patient . Patient verbalized understanding. patient left the hospital in stable condition .
== END 2020-09-26 06:57 | disposition home or self-care (01) ==
LOC: EMR 04:43
DX: R10.9 Unspecified abdominal pain (principal); M19.90 Unspecified osteoarthritis, unspecified site; I11.0 Hypertensive heart disease with heart failure; I50.9 Heart failure, unspecified; I48.91 Unspecified atrial fibrillation; N18.9 Chronic kidney disease, unspecified; Z79.01 Long term (current) use of anticoagulants
CPT/HCPCS: 70450; 72125; 72131; 74150; 99284

== ENCOUNTER 2020-09-27 09:49 | Emergency (ER) | payer MEDICARE, MEDICAID ==
[~2020-09-27] VITALS: Ht 177.8 cm; Wt 89.8 kg
[2020-09-27 10:36] VITALS: BP 133/88
[2020-09-27 10:37] VITALS: BP 133/88
--- NOTE | 2020-09-27 10:38 | NUR ---
patient came to er complaints of joint pain wants pain meds examined by dr marie patient got upset due to no toradol injection so he eloped from er
--- NOTE | 2020-09-30 06:25 | Emergency Room Report ---
History of Present Illness General Chief Complaint: General Complaint Source: Patient, Medical Record Present Illness Allergies: Coded Allergies: No Known Allergies (Unverified , 08/12/20) COVID-19 Screening Contact w/high risk pt: No Recent Travel to affected area: No Experienced COVID-19 symptoms?: No COVID-19 Testing performed PULMONOLOGIST: No Patient History Past Surgical History: none Pertinent Family History: none Social History: Denies: smoking, alcohol use, drug use Immunizations: UTD Reviewed Nursing Documentation: PMH: Agreed; PSxH: Agreed Nursing Documentation-PMH Hx Cardiac Problems: Yes - afib, CHF, gout Hx Hypertension: Yes Hx Pacemaker: No - retina detachment in the rigth eye Hx Asthma: No Hx COPD: No Hx Diabetes: No Hx Cancer: No Hx Gastrointestinal Problems: No Hx Dialysis: No Hx Neurological Problems: No Hx Cerebrovascular Accident: No Hx Seizures: No Physical Exam Vital Signs Date Time Temp Pulse Resp B/P (MAP) Pulse Ox O2 Delivery O2 Flow Rate FiO2 09/27/20 10:29 97.5 96 18 133/88 (103) 98 Room Air Medical Decision Making Diagnostic Impression: Primary Impression: eloped ER Course When I went to evaluate the patient patient became very agitated and combative stating that "you never give me anything". History of CHF and A. fib. History of gout. History of arthritis. When I reviewed EMR patient had been here multiple days previously and received Toradol. Explained given his age and history of gout it is not safe to be giving Toradol so often. Patient started cursing and yelling racial slurs. Patient walked out of ED Last Vital Signs Date Time Temp Pulse Resp B/P (MAP) Pulse Ox O2 Delivery O2 Flow Rate FiO2 09/27/20 10:37 97.5 18 133/88 98 Room Air 09/27/20 10:35 96 Status: unchanged Disposition: ELOPED Condition: Unknown Referrals: Mariano Alaniz MD (PCP) Mateo Galeano MD Sep 30, 2020 06:25
== END 2020-09-27 10:40 | disposition left against medical advice (07) ==
LOC: EMR 10:35
DX: Z53.21 Procedure and treatment not carried out due to patient leaving prior to being seen by health care provider (principal)
CPT/HCPCS: 99281